=== PATIENT | female | born 1950 | race Caucasian/White ===

== ENCOUNTER 2018-05-27 14:03 | Inpatient (IN) | payer MEDICARE, OTHER ==
[~2018-05-27] VITALS: Ht 157.5 cm; Wt 65.3 kg
[2018-05-27] MEDS ORDERED: MELATONIN 3 MG TABLET PO PRN (16:30)
[2018-05-27] MEDS ORDERED: ONDANSETRON 4 MG (ZOFRAN) ORAL DISSOLVE TAB PO PRN (16:30)
[2018-05-27] MEDS ORDERED: DOCUSATE SODIUM 100 MG (COLACE) CAP PO PRN (16:30)
[2018-05-27] MEDS ORDERED: ALPRAZolam 0.25 MG (XANAX) TAB PO PRN (16:30)
[2018-05-27] MEDS ORDERED: LOPERAMIDE 2 MG (IMODIUM) CAP PO PRN (16:30)
[2018-05-27] MEDS ORDERED: CALCIUM CARBONATE 500 MG (TUMS) TAB.CHEW PO PRN (16:30)
[2018-05-27] MEDS ORDERED: ONDANSETRON 4 MG/2 ML (SDV) Z0FRAN IVP PRN (16:30)
[2018-05-27] MEDS ORDERED: diphenhydrAMINE 25 MG TAB (BENADRYL) PO PRN ×2 (16:30→20:15)
[2018-05-27] MEDS ORDERED: ACETAMINOPHEN 500 MG TAB (TYLENOL) PO PRN (16:30)
[2018-05-27 18:35] VITALS: BP 128/62
--- NOTE | 2018-05-27 18:37 | PM&R H&P / Post Admit Assess ---
History of Present Illness HPI/Chief Complaint CC: s/p Lumbar spine surgery with debility HPI: This is a 68-year-old white female clinic patient of Dr. Wynne who presents to the inpatient rehabilitation facility following an uncomplicated lumbar spine surgery due to lumbar stenosis from Dr. Conley on 05/23/18. She has been essentially bedridden for 7 months due to the severity of her back pain until she was able to undergo the surgery by Dr. Conley. At this current time pain is controlled and she is looking forward to getting up therapy and beginning the intensive program. She was contemplating going to skilled facility but daughter encouraged her to try inpatient rehabilitation for a more aggressive journey with therapy to recover. She does have history of postural orthostasis tachycardia syndrome and has been allowed to have permissive hypertension in order to minimize the orthostasis so she's been given her pressor therapy on an as needed basis. Her bowels are moving and she feels like she is going to have another bowel movement this evening. She has a midline back incision dressing will be changed every other day with gauze and Hypofixate and she is not a candidate for chemical DVT prophylaxis only SCDs due to high risk for spinal hematoma and compression of the spinal cord. She usually sees neurology at for the orthostasis and urology for recurrent UTIs. Source: patient, family, RN/MD Exam Limitations: no limitations Date Seen 05/27/18 Time Seen by a Provider: 16:15 Attending Physician Elham Garg Maxwell MD Referring Physician Date of Admission May 27, 2018 at 17:40 Home Medications & Allergies Home Medications Reviewed patient Home Medication Reconciliation performed by pharmacy medication reconciliations slot technician and/or nursing. Patients Allergies have been reviewed. 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) Smoking Status: Former Smoker Past Medical History Surgeries: Gallbladder, Orthopedic Cardiac: Hypertension, Hypotension, Palpitations Neurological: Neuropathy Genitourinary: Bladder Infection Gastrointestinal: Gastroesophageal Reflux Musculoskeletal: Arthritis, Chronic Back Pain Endocrine: Diabetes, Non-Insulin dep HEENT: Cataract Family History Diabetes Review of Systems Constitutional: malaise, weakness EENTM: no symptoms reported Respiratory: no symptoms reported Cardiovascular: no symptoms reported Gastrointestinal: no symptoms reported Genitourinary: no symptoms reported Musculoskeletal: back pain Skin: no symptoms reported Psychiatric/Neurological: No Symptoms Reported All Other Systems Reviewed Negative Unless Noted: Yes Physical Exam Exam Vital Signs Capillary Refill : General Appearance: No Apparent Distress, WD/WN, Chronically ill, Thin HEENT: PERRL/EOMI, Normal ENT Inspection, Pharynx Normal, Moist Mucous Membranes Neck: Full Range of Motion, Normal Inspection, Non Tender, Supple Respiratory: Chest Non Tender, Lungs Clear, Normal Breath Sounds, No Accessory Muscle Use, No Respiratory Distress Cardiovascular: Regular Rate, Rhythm, No Edema, No Gallop, No JVD, No Murmur Gastrointestinal: Normal Bowel Sounds, No Organomegaly, No Pulsatile Mass, Non Tender, Soft Rectal: Normal Exam, Normal Rectal Tone Genital/Rectal: Normal Genital Exam, Normal Rectal Exam, Normal Rectal Tone, Normal Vaginal Exam Back: Decreased Range of Motion, Vertebral Tenderness, Other (dressing intact) Extremity: Normal Capillary Refill, Normal Inspection, Normal Range of Motion, Non Tender, No Calf Tenderness, No Pedal Edema Neurologic/Psychiatric: Alert, Oriented x3, No Motor/Sensory Deficits, Depressed Affect Skin: Normal Color, Warm/Dry Lymphatic: No Adenopathy Results Results/Procedures Labs Patient resulted labs reviewed. Assessment/Plan Assessment and Plan Assess & Plan/Chief Complaint Assessment: Status post uncomplicated lumbar spine surgery on 05/23/18 Seven-month history of bedridden status due to severe back pain with radiculopathy Diabetes mellitus POTS Vitamin B-12 deficiency Postop anemia Recurrent UTIs Chronic headache Plan: Restart home meds Permissive hypertension due to severity of her orthostasis when standing up Check labs in a.m. Pain control Bowel regimen Intensive therapies (1) Lumbar stenosis (2) POTS (postural orthostatic tachycardia syndrome) (3) History of UTI (4) Anemia due to acute blood loss (5) Weakness (6) Neuropathy (7) GERD (gastroesophageal reflux disease) (8) Diabetes mellitus (9) B12 deficiency (10) Headache Post Admission Physician Asses Date seen by provider: May 27, 2018 Time seen by provider: 18:15 The preadmission screen agrees with the post admission assessment that the patient is a good candidate for inpatient rehabilitation. The patient will have a comprehensive program of inpatient rehabilitation with a goal of maximizing level of functional independence prior to discharge home with family. The patient will have PT/OT ninety minutes per day, each discipline, five days a week for gait, strengthening, conditioning, balance, ADLs, any patient/family/caregiver training as necessary. Speech therapy to do cognitive assessment and treat as indicated. Rehabilitation nursing to assist with bowel, bladder, skin, wound care, medication administration, pain management. Plant Physiology Teacher to assist with discharge planning, community reentry. SCD's for DVT prophylaxis. She appears to be well motivated to participate in three hours of therapy a day. She should be able to tolerate three hours of therapy a day from a medical standpoint. She should benefit from the three hours of therapy a day. She has a reasonable discharge plan, reasonable discharge rehabilitation goals and a supportive family. She has various comorbidities that need to be closely monitored with medications and treatments adjusted on a daily basis as needed. These include: Barriers to discharge for this patient who had been independent prior to this are for her to be modified independent to supervision for ADLs and mobility skills prior to discharge home with [family], so as to lessen the burden of the caregivers. Risks for this patient include: 1. Fall 2. Fracture 3. DVT 4. Pulmonary embolism 5. Wound infection 6. Skin breakdown 7. Contractures 8. Poorly controlled pain 9. Urinary retention 10. UTI 11. Respiratory infection 12. Aspiration Estimated Length of Stay: 14 days Prognosis: Rehab prognosis appears good for goal of discharge home with family modified independent to supervision for ADLs and mobility skills. ELHAM GARG DO May 27, 2018 18:37
[2018-05-27] MEDS: HYDROcodone/APAP 5 MG/325 MG (LORTAB) TAB PO PRN ×2 (18:52→22:15)
--- NOTE | 2018-05-27 19:28 | NUR ---
bedside report received from TARIQ BLACK, assume care of pt
--- NOTE | 2018-05-27 19:30 | NUR ---
pt had been given lortab 5 1 tab at 185 rates pain at 2/10 on numeric scale
--- NOTE | 2018-05-27 19:41 | NUR ---
Admitted to room 230-1, with an admitting diagnosis of debility, on 05/27/18 from via [private vehicle, accompanied by [family].JORDANA GARCIA introduced to surroundings, call light, bed controls, phone, TV, temperature control, lights, meal times, smoking policy, visitor policy, side rail policy, bathrooms and showers. Patient Rights given to patient in the handbook.JORDANA GARCIA verbalizes understanding that [facility] is not responsible for the loss or damage to any personal effects or valuables that are kept in the patients posession during their hospitalization. The following Patient Care Plans were discussed with the [pt]: Discharge Planning, [impaired mobility],[self care deficit], and [alteration in comfort and skin integrity]. JORDANA GARCIA verbalizes understanding of Interdisciplinary Patient Education. Patient and/or family were informed about the Rapid Response Team and its purpose. Patient received Patient Rights Booklet, which includes Privacy Act Statement and Data Collection Information Summary.
[2018-05-27] MEDS ORDERED: PROMETHAZINE 25 MG (PHENERGAN) TAB PO PRN (20:15)
--- NOTE | 2018-05-27 20:15 | NUR ---
up to commode dressing to lower back changed, incision intact with lane & has lt sided old drain tube site with serous sanguinous drainage, dressing 4x4 & island dressing applied, pt assisted back to bed had medium soft brown stool pt states 3rd stool today & asked this nurse not to give laxatives & stool softeners
[2018-05-27] MEDS: POLYETHYLENE GLYCOL 17 GM (MIRALAX) PACK PO SCH (21:00)
[2018-05-27] MEDS: DOCUSATE SODIUM 100 MG (COLACE) CAP PO SCH (21:00)
--- NOTE | 2018-05-27 21:45 | NUR ---
fsbs 274 NovoLog 8 units given
[2018-05-27] MEDS: COLESTIPOL 1 GM (COLESTID) TAB PO SCH (21:52)
[2018-05-27] MEDS: GABAPENTIN 100 MG (NEURONTIN) CAP PO SCH (21:53)
[2018-05-27] MEDS: KCL 10 MEQ TAB (MICRO K) PO SCH (21:53)
[2018-05-27] MEDS: FAMOTIDINE 20 MG (PEPCID) TABLET PO SCH (21:53)
[2018-05-27] MEDS: LIPASE/AMYLASE/PROTEASE (PANCRELIPASE) 5,000 UNITS CAP PO SCH (21:54)
[2018-05-27] MEDS: CYCLOBENZAPRINE 10 MG (FLEXERIL) TAB PO SCH (21:54)
[2018-05-27] MEDS: ESTRADIOL VAGINAL CREAM 42.5 GM (ESTRACE) VG SCH (21:57)
[2018-05-27] MEDS ORDERED: inSUlin ASPART (NovoLOG) 1 UNIT/0.01 ML (CHARGE PER UNIT) ONE (22:02)
[2018-05-27] MEDS: inSUlin ASPART (NovoLOG) 1 UNIT/0.01 ML (CHARGE PER UNIT) SC SCH (22:07)
--- NOTE | 2018-05-27 22:15 | NUR ---
c/o back pain level 6/10 on numeric scale, Lortab 5 1 tab po given
--- NOTE | 2018-05-27 22:50 | NUR ---
resting quietly in bed, pain level 0/10 on flacc scale
[2018-05-28] MEDS: HYDROcodone/APAP 5 MG/325 MG (LORTAB) TAB PO PRN ×3 (04:50→21:32)
--- NOTE | 2018-05-28 04:50 | NUR ---
c/o back pain level 5/10 on numeric scale, lortab 5 1 tab po given
[2018-05-28 04:55] VITALS: BP 155/78
--- NOTE | 2018-05-28 05:05 | NUR ---
straight cath & received 400ml light yvonne colored urine
--- NOTE | 2018-05-28 05:30 | NUR ---
resting quietly in bed, pain level 0/10 on flacc scale
[2018-05-28 06:00] LABS: BASOPHILS % (AUTO) 0 % (0-10); EOSINOPHILS # (AUTO) 0.1 10^3/uL (0.0-0.3); EOSINOPHILS % (AUTO) 2 % (0-10); HEMATOCRIT 31 % (35-52); HEMOGLOBIN 10.1 G/DL (11.5-16.0); LYMPHOCYTES # (AUTO) 1.9 X 10^3 (1.0-4.0); LYMPHOCYTES % (AUTO) 26 % (12-44); MEAN CORPUSCULAR HEMOGLOBIN 31 PG (25-34); MEAN CORPUSCULAR HGB CONC 32 G/DL (32-36); MEAN CORPUSCULAR VOLUME 96 FL (80-99); MEAN PLATELET VOLUME 8.8 FL (7.4-10.4); MONOCYTES # (AUTO) 0.8 X 10^3 (0.0-1.0); MONOCYTES % (AUTO) 12 % (0-12); NEUTROPHILS # (AUTO) 4.3 X 10^3 (1.8-7.8); NEUTROPHILS % (AUTO) 60 % (42-75); PLATELET COUNT 373 10^3/uL (130-400); RED CELL DISTRIBUTION WIDTH 13.1 % (10.0-14.5); WHITE BLOOD COUNT 7.1 10^3/uL (4.3-11.0)
[2018-05-28 06:20] LABS: ALANINE AMINOTRANSFERASE 17 U/L (0-55); ALBUMIN 3.3 GM/DL (3.2-4.5); ALKALINE PHOSPHATASE 85 U/L (40-136); BILIRUBIN,TOTAL 0.3 MG/DL (0.1-1.0); BUN/CREATININE RATIO 14; CALCIUM 9.4 MG/DL (8.5-10.1); CARBON DIOXIDE 29 MMOL/L (21-32); CHLORIDE 95 MMOL/L (98-107); CREATININE SERUM 0.84 MG/DL (0.60-1.30); GFR ESTIMATED > 60; GLUCOSE 230 MG/DL (70-105); POTASSIUM 3.9 MMOL/L (3.6-5.0); SODIUM 137 MMOL/L (135-145); TOTAL PROTEIN 6.8 GM/DL (6.4-8.2)
[2018-05-28] MEDS: inSUlin ASPART (NovoLOG) 1 UNIT/0.01 ML (CHARGE PER UNIT) SC SCH ×4 (06:37→21:27)
[2018-05-28] MEDS: metFORMIN XR 500 MG (GLUCOPHAGE XR) TAB PO SCH ×2 (06:38→17:21)
[2018-05-28] MEDS: KCL 10 MEQ TAB (MICRO K) PO SCH ×2 (06:38→17:21)
[2018-05-28] MEDS: VITAMIN D3 1,000 UNITS (CHOLECALCIFEROL) TABLET PO SCH (06:39)
[2018-05-28] MEDS: glipiZIDE 5 MG (GLUCOTROL) TAB PO SCH (06:39)
[2018-05-28] MEDS: LIPASE/AMYLASE/PROTEASE (PANCRELIPASE) 5,000 UNITS CAP PO SCH ×4 (06:40→21:29)
--- NOTE | 2018-05-28 07:35 | NUR ---
bedside report given to BRANDI BLACK
[2018-05-28] MEDS ORDERED: PATIENT MAY USE OWN MED,SINGLE MED PO SCH (08:00)
[2018-05-28] MEDS: MAGNESIUM OXIDE (MAG-OX)400 MG TAB PO SCH (08:29)
[2018-05-28] MEDS: FAMOTIDINE 20 MG (PEPCID) TABLET PO SCH ×2 (08:29→21:29)
[2018-05-28] MEDS: GABAPENTIN 100 MG (NEURONTIN) CAP PO SCH ×3 (08:29→21:29)
[2018-05-28] MEDS: COLESTIPOL 1 GM (COLESTID) TAB PO SCH ×2 (08:30→21:30)
[2018-05-28] MEDS: DOCUSATE SODIUM 100 MG (COLACE) CAP PO SCH ×2 (08:30→21:30)
[2018-05-28] MEDS: CYCLOBENZAPRINE 10 MG (FLEXERIL) TAB PO SCH ×3 (08:30→21:30)
[2018-05-28] MEDS: POLYETHYLENE GLYCOL 17 GM (MIRALAX) PACK PO SCH ×2 (08:34→21:00)
[2018-05-28] MEDS: MILK OF MAGNESIA 400 MG/5 ML 30 ML UDC PO SCH (08:34)
[2018-05-28 08:40] VITALS: BP 101/63
[2018-05-28] MEDS: FLUDROCORTISONE 0.1 MG (FLORINEF) TAB PO SCH (08:51)
[2018-05-28] MEDS: DROXIDOPA 200 MG PO SCH ×3 (08:51→17:22)
[2018-05-28] MEDS: FLUTICASONE NASAL SPRAY (FLONASE) 16 GM BTL NS SCH (08:53)
[2018-05-28 08:58] VITALS: BP 100/60
--- NOTE | 2018-05-28 09:30 | PM&R Progress Note ---
Subjective HPI/CC On Admission Date Seen by Provider: May 28, 2018 Time Seen by Provider: 09:00 CC: s/p Lumbar spine surgery with debility HPI: This is a 68-year-old white female clinic patient of Dr. Wynne who presents to the inpatient rehabilitation facility following an uncomplicated lumbar spine surgery due to lumbar stenosis from Dr. Conley on 05/23/18. She has been essentially bedridden for 7 months due to the severity of her back pain until she was able to undergo the surgery by Dr. Conley. At this current time pain is controlled and she is looking forward to getting up therapy and beginning the intensive program. She was contemplating going to skilled facility but daughter encouraged her to try inpatient rehabilitation for a more aggressive journey with therapy to recover. She does have history of postural orthostasis tachycardia syndrome and has been allowed to have permissive hypertension in order to minimize the orthostasis so she's been given her pressor therapy on an as needed basis. Her bowels are moving and she feels like she is going to have another bowel movement this evening. She has a midline back incision dressing will be changed every other day with gauze and Hypofixate and she is not a candidate for chemical DVT prophylaxis only SCDs due to high risk for spinal hematoma and compression of the spinal cord. She usually sees neurology at for the orthostasis and urology for recurrent UTIs. Objective Exam Vital Signs Vital Signs Date Time Temp Pulse Resp B/P (MAP) Pulse Ox O2 Delivery O2 Flow Rate FiO2 05/28/18 17:19 98.3 92 18 146/76 (99) 94 Room Air Capillary Refill : General Appearance: No Apparent Distress, WD/WN, Chronically ill, Thin HEENT: PERRL/EOMI, Normal ENT Inspection, Pharynx Normal, Moist Mucous Membranes Neck: Full Range of Motion, Normal Inspection, Non Tender, Supple Respiratory: Chest Non Tender, No Accessory Muscle Use, No Respiratory Distress , Crackles, Decreased Breath Sounds Cardiovascular: Regular Rate, Rhythm, No Edema, No Gallop, No JVD, No Murmur Gastrointestinal: Normal Bowel Sounds, No Organomegaly, No Pulsatile Mass, Non Tender, Soft Rectal: Normal Exam, Normal Rectal Tone Genital/Rectal: Normal Genital Exam, Normal Rectal Exam, Normal Rectal Tone, Normal Vaginal Exam Back: Decreased Range of Motion, Vertebral Tenderness, Other (dressing intact) Extremity: Normal Capillary Refill, Normal Inspection, Normal Range of Motion, Non Tender, No Calf Tenderness, No Pedal Edema Neurologic/Psychiatric: Alert, Oriented x3, No Motor/Sensory Deficits, Depressed Affect Skin: Normal Color, Warm/Dry Lymphatic: No Adenopathy Results/Procedures Lab Laboratory Tests 05/28/18 05:48 Patient resulted labs reviewed. Assessment/Plan Assessment and Plan Assess & Plan/Chief Complaint Assessment: Status post uncomplicated lumbar spine surgery on 05/23/18 Seven-month history of bedridden status due to severe back pain with radiculopathy Diabetes mellitus POTS Vitamin B-12 deficiency Postop anemia Recurrent UTIs Chronic headache Neurogenic bladder requiring straight catheters to empty bladder Crackles on lung exam subtle Plan: Restarted home meds Permissive hypertension due to severity of her orthostasis when standing up Pain control Bowel regimen Intensive therapies Fall risk Straight in/out caths IS (1) Lumbar stenosis (2) POTS (postural orthostatic tachycardia syndrome) (3) History of UTI (4) Anemia due to acute blood loss (5) Weakness (6) Neuropathy (7) GERD (gastroesophageal reflux disease) (8) Diabetes mellitus (9) B12 deficiency (10) Headache (11) Neurogenic bladder (12) Bibasilar crackles Clinical Quality Measures DVT/VTE Risk/Contraindication: Risk Factor Score Per Nursin RFS Level Per Nursing on Admit: 2=Moderate MALIKA VÁZQUEZ DO May 28, 2018 09:30
--- NOTE | 2018-05-28 10:13 | ST Cognitive Linguistic Eval ---
Speech Evaluation-General Medical Diagnosis Lumbar Stenosis Onset Date: May 23, 2018 Therapy Diagnosis Therapy Diagnosis: Cognitive-communication Precautions Precautions/Isolations: Fall Prevention, Standard Precautions, Pressure Ulcer Medical History Reviewed History: Yes Speech PLF-Current Status Prior Level of Function Patient lived at home with her . She had been bedridden for the past 7 months due to the back pain. She was dependent on family for her daily needs. Subjective Patient was pleasant and cooperative for the cognitive evaluation. Language Eval: Auditory Comprehends Simple Yes/No Ques: Functional Indent/Objects Multiple [place]: Functional Ident/Pics in Multiple [place]: Functional Follows 1-Step Commands: Functional Follows Complex Directions: Functional Follows General Conversations: Functional Language Eval: Verbal Language Completes Spontaneous Greeting: Functional Produces Auto, Serial Info: Functional Imitates Simple Words/Phrases: Functional Word Finding: Functional Requests Basic Needs: Functional States Basic Personal Info: Functional Expresses Complex Ideas: Functional Objective Cognitive Domain Attention: WNL Memory: WNL Problem Solving: Functional Executive Functions: WNL Visuospatial Skills: WN Objective Formal/Standardized Tests [facility] Cognitive/Communication Results Memory: Immediate 3/3, Delayed 3/3, Orientation: 5/5, Problem Solving: Simple 5/ 5, Complex 5/5, Auditory Processin/5 Oral Motor/Speech Production Within functional limits Impression Patient is a pleasant 68 year old female who was admitted to the ARU post lumbar surgery.. Patient was evaluated for cognitive function. Patient does not exhibit any memory or problem solving deficits at this time. Communication/Social Cognition Comprehension: 7 Expression: 7 Social Interaction: 7 Problem Solvin Memory: 7 Speech Patient Assess Expression of Ideas/Wants: Expression (4) Understanding Verbal Content: Understands (4) Brief Interview-Mental Status: Yes Repetition of Three Words: Three (3) Temporal Orientation: Year: Correct (3) Temporal Orientation: Month: Accurate within 5 days(2) Temporal Orientation: Day: Correct (1) Recall : Wear to say "Sock": Yes, no cue required (2) Recall : Color: Yes, no cue required (2) Recall : Bed: Yes, no cue required (2) Memory/Recall Ability: Current season, That he or she is in a hsp/hsp unit Speech-Plan Patient/Family Goals Patient/Family Goals: Patient plans to return home with family post rehab. Treatment Plan Speech Therapy Treatment Plan: Discontinue ST Skilled ST is not recommended at this time. Treatment Duration: May 28, 2018 Frequency: 1 time per week Estimated Hrs Per Day: .25 hour per day Rehab Potential: Good Barriers to Learning: Patient is in a lot of pain. Pt/Family Agrees to Plan: Yes Safety Risks/Education Teaching Recipient: Patient Teaching Methods: Discussion Response to Teaching: Verbalize Understanding Education Topics Provided: Safety within her room. Time Speech Therapy Time In: 09:45 Speech Therapy Time Out: 10:00 Total Billed Time: 15 Billed Treatment Time 1, SPSNDCOMP MARYSE Young May 28, 2018 10:13
--- NOTE | 2018-05-28 10:18 | Physical Therapy Evaluation ---
PT Evaluation-General Medical Diagnosis Admission Date May 27, 2018 at 17:40 Therapy Diagnosis Therapy Diagnosis: impaired mobility, strength, endurance Height/Weight Height (Feet): 5 Height (Inches): 2.00 Weight (Pounds): 140 Weight (Ounces): 1.6 Precautions Precautions/Isolations: Fall Prevention, Standard Precautions, Pressure Ulcer Referral Physician: Elham Garg DO Reason for Referral: Evaluation/Treatment Medical History Additional Medical History Past Medical History Surgeries: Gallbladder, Orthopedic Cardiac: Hypertension, Hypotension, Palpitations Neurological: Neuropathy Genitourinary: Bladder Infection Gastrointestinal: Gastroesophageal Reflux Musculoskeletal: Arthritis, Chronic Back Pain Endocrine: Diabetes, Non-Insulin dep HEENT: Cataract Reviewed History: Yes Social History Home: Single Level Current Living Status: Spouse Entry Into Home: Ramp Prior/Core FIM Prior Level of Function Therapy Code Descriptions/Definitions Functional Gray Measure: 0=Not Assessed/NA 4=Minimal Assistance 1=Total Assistance 5=Supervision or Setup 2=Maximal Assistance 6=Modified Gray 3=Moderate Assistance 7=Complete Gray Therapy Quality Codes: 6 Independent with activity with or without an assistive device 5 Patient requires set up or clean up by helper. Patient completes activity by themselves 4 Supervision or touching assist (CGA). [place] provide cues , steadying assist 3 The helper provides less than half the effort to complete the activity 2 The helper provides more than half the effort to complete the activity 1 Dependent. The helper does all the effort to complete an activity 7 Patient refused to complete or attempt activity 9 The patient did not perform the activity before the current illness or injury 88 Not attempted due to Medical conditions or safety concerns Functional Abilities and Goals: Independent: Patient completed the activities by him/herself, with or without an assistive device, with no assistance from a helper. Needed Some Help: Patient needed partial assistance from another person to complete activities. Dependent: A helper completed the activities for the patient. Unknown: Not Applicable: Bed Mobility: 6 Transfers (B,C,W/C) (FIM): 6 Gait: 2 Wheelchair Mobility: 6 Prior Devices Use: Manual wheelchair, Walker Patient states she was ambulating previously with a rolling walker by herself but only for short distances. PT Evaluation-Current Subjective Patient in bed pre tx, agrees reluctantly to PT, has 7/10 pain in low back. Patient does not have a back brace to wear here and she says she has not had one since the surgery. Patient needs dressed upper and lower, does upper by herself with nurse in the room, does lower with mod to max assist. Pt/Family Goals to decrease her pain Objective Patient Orientation: Person, Place, Situation ROM/Strength ROM Lower Extremities WNL except left ankle (due to fusion per patient) Strength Lower Extremities hip flexion 3/5 bilaterally, otherwise both legs are 4-/5 grossly Neuromuscular (Tone, Coordination, Reflexes) NT Sensory Vision: Wears Glasses Hearing: Functional Sensation Right Lower Extremit: Intact Sensation Left Lower Extremity: Intact Transfers Therapy Code Descriptions/Definitions Functional Gray Measure: 0=Not Assessed/NA 4=Minimal Assistance 1=Total Assistance 5=Supervision or Setup 2=Maximal Assistance 6=Modified Gray 3=Moderate Assistance 7=Complete Gray Transfers (B, C, W/C) (FIM): 3 Scootin Rollin Supine to/from Sit: 3 ANGELIC TRAN PT May 28, 2018 10:18
--- NOTE | 2018-05-28 10:26 | Physical Therapy Evaluation ---
PT Evaluation-General Medical Diagnosis Admission Date May 27, 2018 at 17:40 Medical Diagnosis: Lumbar Stenosis Onset Date: May 23, 2018 Therapy Diagnosis Therapy Diagnosis: impaired mobility, strength, endurance Height/Weight Height (Feet): 5 Height (Inches): 2.00 Weight (Pounds): 140 Weight (Ounces): 1.6 Precautions Precautions/Isolations: Fall Prevention, Standard Precautions, Pressure Ulcer Referral Physician: Elham Garg DO Reason for Referral: Evaluation/Treatment Medical History Additional Medical History Past Medical History Surgeries: Gallbladder, Orthopedic Cardiac: Hypertension, Hypotension, Palpitations Neurological: Neuropathy Genitourinary: Bladder Infection Gastrointestinal: Gastroesophageal Reflux Musculoskeletal: Arthritis, Chronic Back Pain Endocrine: Diabetes, Non-Insulin dep HEENT: Cataract Reviewed History: Yes Social History Home: Single Level Current Living Status: Spouse Entry Into Home: Ramp Prior/Core FIM Prior Level of Function Therapy Code Descriptions/Definitions Functional [place] Measure: 0=Not Assessed/NA 4=Minimal Assistance 1=Total Assistance 5=Supervision or Setup 2=Maximal Assistance 6=Modified [place] 3=Moderate Assistance 7=Complete [place] Therapy Quality Codes: 6 Independent with activity with or without an assistive device 5 Patient requires set up or clean up by helper. Patient completes activity by themselves 4 Supervision or touching assist (CGA). [place] provide cues , steadying assist 3 The helper provides less than half the effort to complete the activity 2 The helper provides more than half the effort to complete the activity 1 Dependent. The helper does all the effort to complete an activity 7 Patient refused to complete or attempt activity 9 The patient did not perform the activity before the current illness or injury 88 Not attempted due to Medical conditions or safety concerns Functional Abilities and Goals: Independent: Patient completed the activities by him/herself, with or without an assistive device, with no assistance from a helper. Needed Some Help: Patient needed partial assistance from another person to complete activities. Dependent: A helper completed the activities for the patient. Unknown: Not Applicable: Bed Mobility: 6 Transfers (B,C,W/C) (FIM): 6 Gait: 2 Wheelchair Mobility: 6 Indoor Mobility (Ambulation): Independent Stairs: Independent Prior Devices Use: Manual wheelchair, Walker Patient states she was ambulating in her home previously but only short distances. PT Evaluation-Current Subjective Patient in bed pre tx, agrees to PT, reluctant to participate in therapy but agrees with encouragement. Patient states that she isn't sure if she is going to be able to handle as much therapy as she will be getting in rehab. Patient has 7/10 pain in low back. Patient does not have a back brace and states that she has not had one since her surgery. Patient needs to get dressed upper and lower and performs upper without assist with nurse in the room and needs mod to max assist for lower. Pt/Family Goals to decrease her back pain Objective Patient Orientation: Person, Place, Situation ROM/Strength ROM Lower Extremities WNL except for left ankle (it is fused per patient report) Strenght Lower Extremities hip flexion bilaterally is 3/5, otherwise both legs are 4-/5 grossly Neuromuscular (Tone, Coordination, Reflexes) NT Sensory Vision: Wears Glasses Hearing: Functional Sensation Right Lower Extremit: Intact Sensation Left Lower Extremity: Intact Transfers Therapy Code Descriptions/Definitions Functional [place] Measure: 0=Not Assessed/NA 4=Minimal Assistance 1=Total Assistance 5=Supervision or Setup 2=Maximal Assistance 6=Modified [place] 3=Moderate Assistance 7=Complete [place] Therapy Quality Codes: 6 Independent with activity with or without an assistive device 5 Patient requires set up or clean up by helper. Patient completes activity by themselves 4 Supervision or touching assist (CGA). [place] provide cues , steadying assist 3 The helper provides less than half the effort to complete the activity 2 The helper provides more than half the effort to complete the activity 1 Dependent. The helper does all the effort to complete an activity 7 Patient refused to complete or attempt activity 9 The patient did not perform the activity before the current illness or injury 88 Not attempted due to Medical conditions or safety concerns Transfers (B, C, W/C) (FIM): 3 Scootin Rollin Roll Left to Right (QC): 4 Supine to/from Sit: 3 Sit to/from Stand: 4 bed t/f WC(FIM only if WC use): 3 Sit to Lying (QC): 2 Lying to Sitting/Side of Bed(Q: 2 Sit to Stand (QC): 3 Chair/Nqj-ic-Gkqzz Xfer(QC): 3 Car Transfer (QC): 3 Patient performs bed mobility with SBA, supine <-> sit with mod assist (needs help with both legs), sit <-> stand with min assist from low surfaces, transfers with min assist, car transfer min assist. Patient needs assist standing from low surfaces. Her blood pressure became low during treatment 88/ 53 and she required more assist for transfers back to her wheelchair and into recliner. Gait Does the Patient Walk?: Yes Mode of Locomotion: Both Anticipated Mode of Locomotion: Walk Gait (FIM): 1 Walk 10 feet (QC): 4 Distance: 20'x2 Gait Level of Assist: 4 Gait Persons Needed: 1 Gait Assistive Device: FWW Comments/Gait Description Patient can ambulate 20' with a rolling walker with CGA. She has poor foot clearance, very slow ambulation, antalgic, unsteady but no LOB. Patient fatigues very quickly. Wheelchair Training Does the Pt Use a Wheelchair?: Yes Wheelchair (FIM): 1 Type of Wheelchair: Manual Stairs If not tested on admit;explain Patient does not have the strength to perform a step and her blood pressure is too low this morning. Balance Sitting Static: Normal Sitting Dynamic: Normal Standing Static: Fair Standing Dynamic: Fair Assessment/Needs Patient has impaired mobility, strength, endurance. Her blood pressure dropped this morning to 88/53. Patient moves very slowly, needs time to adjust with every transition. Patient seems to be very self-limiting possible due to pain but she has also been very inactive for a long time. She takes extra time for all mobility due to pain, and extremely poor endurance. Patient may have issues with motivation. Rehab Potential: Fair PT Short Term Goals Short Term Goals Time Frame: Jun 04, 2018 Transfers (B,C,W/C) (FIM): 4 Gait (FIM): 2 Gait Distance Comment: 50' Gait Level of Assist: 4 Gait Assistive Device: FWW PT Motor Operator Goals Motor Operator Goals PT Skilled Nursing Goals Time Frame: Jun 18, 2018 Transfers (B,C,W/C) (FIM): 5 Sit to Lying (QC): 6 Lying-Sitting on Side/Bed(QC): 6 Sit to Stand (QC): 4 Rollin Roll Left to Right (QC): 6 Chair/Kyc-ui-Kmwwp Xfer(QC): 4 Car Transfer (QC): 4 Gait (FIM): 5 Distance: 150' Walk 10 feet (QC): 4 Walk 10ft-Uneven Surface(QC): 4 Walk 50ft with 2 Turns (QC): 4 Walk 150 ft (QC): 4 Gait Level of Assist: 5 Gait Assistive Device: FWW Stairs (FIM): 2 # of Steps: 4 1 Step (curb) (QC): 4 4 Steps (QC): 4 Stairs Level Of Assist: 4 PT Plan Problem List Problem List: Activity Tolerance, Functional Strength, Safety, Balance, Gait, Transfer, Bed Mobility, ROM Treatment/Plan Treatment Plan: Continue Plan of Care Treatment Plan: Bed Mobility, Concurrent Therapy, Education, Functional Activity [place], Functional Strength, Group Therapy, Gait, Safety, Therapeutic Exercise, Transfers Treatment Duration: Jun 04, 2018 Frequency: At least 5 of 7 days/Wk (IRF) Estimated Hrs Per Day: 1.5 hours per day Patient and/or Family Agrees t: Yes Safety Risks/Education Patient Education: Gait Training, Transfer Techniques, Correct Positioning, Safety Issues Teaching Recipient: Patient Teaching Methods: Demonstration, Discussion Response to Teaching: Reinforcement Needed Discharge Recommendations Plan Patient will perform bed mobility and transfer training, balance and endurance training, functional strengthening, stair training, gait training, and education , to improve functional mobility and independence at home. Therapy D/C Recommendations: Home w/ Family Support, Care Home (TCU/NH) Time/GCodes Time In: 0800 Time Out: 0900 Total Billed Treatment Time: 60 Total Billed Treatment 1 visit EVM 30' GT 10' FA 20' ANGELIC TRAN PT May 28, 2018 10:26
--- NOTE | 2018-05-28 11:03 | NUR ---
Patient states will bring Midodrine.
--- NOTE | 2018-05-28 12:01 | Occupational Therapy Eval ---
OT Evaluation-General/PLF Medical Diagnosis Admission Date May 27, 2018 at 17:40 Medical Diagnosis: Lumbar Stenosis Onset Date: May 23, 2018 Therapy Diagnosis Therapy Diagnosis: Weakness Height/Weight Height (Feet): 5 Height (Inches): 2.00 Weight (Pounds): 140 Weight (Ounces): 1.6 Precautions Precautions/Isolations: Fall Prevention, Standard Precautions, Pressure Ulcer Safety Interventions: None Weight Bear Status Weight Bearing Restriction: Weight Bearing/Tolerated Back precautions Referral Physician: Elham Garg DO Referral Reason: Activity Tolerance, Self Care, Evaluation/Treatment, Strengthening/ROM Medical History Pertinent Medical History: DM Additional Medical History POTS, Vit B-12 deficiency, postop anemia, recurrent UTI's. Current History Pt. had elective back surgery. Reviewed History: Yes Social History Home: Single Level Current Living Status: Spouse Entry Into Home: Ramp ADL-Prior Level of Function Therapy Code Descriptions/Definitions Functional [place] Measure: 0=Not Assessed/NA 4=Minimal Assistance 1=Total Assistance 5=Supervision or Setup 2=Maximal Assistance 6=Modified [place] 3=Moderate Assistance 7=Complete [place] Therapy Quality Codes: 6 Independent with activity with or without an assistive device 5 Patient requires set up or clean up by helper. Patient completes activity by themselves 4 Supervision or touching assist (CGA). [place] provide cues , steadying assist 3 The helper provides less than half the effort to complete the activity 2 The helper provides more than half the effort to complete the activity 1 Dependent. The helper does all the effort to complete an activity 7 Patient refused to complete or attempt activity 9 The patient did not perform the activity before the current illness or injury 88 Not attempted due to Medical conditions or safety concerns Functional Abilities and Goals: Independent: Patient completed the activities by him/herself, with or without an assistive device, with no assistance from a helper. Needed Some Help: Patient needed partial assistance from another person to complete activities. Dependent: A helper completed the activities for the patient. Unknown: Not Applicable: ADL PLOF Comments Pt. states that she was independent previous to this surgery, except that her spouse was present when she showered for safety. Self Care: Needed Some Help Functional Cognition: Independent DME/Equipment: Bath Chair, Shower DME/Equipment Comments Pt. has a walker, wheelchair, cane, and crutches. OT Current Status Subjective Pt. reports 8/10 pain in back with movement. Notified nursing and nursing provided pain medication. Appearance Pt. up in chair. Agrees to work with OT. States that she does not feel ready for a shower. Mental Status/Objective Patient Orientation: Person, Place, Time, Situation Current Hand Dominance: Right ADL-Treatment Grooming (FIM): 5 (Set up to brush hair.) Bathing (FIM): 3 (Mod assist overall to wash all parts with spongebath. Seated up in chair.) Shower/Bathe Self (QC): 3 Upper Body Dressing (FIM): 4 Upper Body Dressing (QC): 4 Lower Body Dressing (FIM): 3 (Pt. able to doff socks but requires assist to don them. Has difficulty pulling underwear over hips.) Lower Body Dressing (QC): 3 On/Off Footwear (QC): 3 Transfers (B, C, W/C) (FIM): 3 (Min assist sit-stand and transfer to bed. Mod assist to position self in bed.) Other Treatments Pt. requires increased time to complete tasks. Moves slowly due to pain. OT brought in adaptive equipment after ADL treatment. Pt. is educated on equipment and will begin with equipment training at next ADL session. Education OT Patient Education: Correct positioning, Modified ADL techniques, Progress toward Goal/Update tx plan, Purpose of tx/functional activities, Reviewed precautions, Rehab process, Transfer techniques Teaching Recipient: Patient Teaching Methods: Demonstration, Discussion Response to Teaching: Verbalize Understanding, Return Demonstration OT Short Term Goals Short Term Goals Time Frame: Jun 04, 2018 Eating(FIM): 5 Grooming(FIM): 5 Bathing(FIM): 4 Upper Body Dressing(FIM): 5 Lower Body Dressing(FIM): 4 Toileting(FIM): 4 Transfers (B,C,W/C) (FIM): 4 Toilet/Commode Transfer(FIM): 4 Shower Transfer(FIM): 4 Additional Short Term Goals: 1-Demonstrate ADL Tasks, 2-Verbalize Understanding , 3-ImproveStrength/[place] 1=Demonstrate adherence to instructed precautions during ADL tasks. 2=Patient will verbalize/demonstrate understanding of assistive devices/ modifications for ADL. 3=Patient will improve strength/tolerance for activity to enable patient to perform ADL's. OT Mcc Goals Mcc Goals Time Frame: Jun 11, 2018 Eating (FIM): 6 Eating (QC): 6 Groomin Oral Hygiene (QC): 6 Bathing(FIM): 5 Shower/Bathe Self (QC): 5 Upper Body Dressing(FIM): 6 Upper Body Dressing (QC): 6 Lower Body Dressing(FIM): 6 Lower Body Dressing (QC): 6 On/Off Footwear (QC): 6 Toileting(FIM): 6 Toileting Hygiene (QC): 6 Transfers (B,C,W/C) (FIM): 6 Toilet/Commode Transfer(FIM): 6 Toilet/Commode Transfer (QC): 6 Shower Transfer(FIM): 5 Additional Goals: 1-Demonstrate ADL Tasks, 2-Verbalize Understanding, 3- ImproveStrength/[place] 1=Demonstrate adherence to instructed precautions during ADL tasks. 2=Patient will verbalize/demonstrate understanding of assistive devices/ modifications for ADL. 3=Patient will improve strength/tolerance for activity to enable patient to perform ADL's. OT Education/Plan Problem List/Assessment Assessment: Decreased Activ Tolerance, Dependent Transfers, Impaired Bed Mobility, Impaired Funct Balance, Impaired I ADL's, Impaired Self-Care Skills Discharge Recommendations Plan/Recommendations: Continue POC Therapy D/C Recommendations: Home w/ Family Support, Occupational Therapy Home Care Equpiment Recommendations-D/C: Hip Kit Treatment Plan/Plan of Care Treatment,Training & Education: Yes Patient would benefit from OT for education, treatment and training to promote independence in ADL's, mobility, safety and/or upper extremity function for ADL' s. Plan of Care: ADL Retraining, Functional Mobility, Group Exercise/Act as Ind, UE Funct Exercise/Act Treatment Duration: Jun 11, 2018 Frequency: At least 5 of 7 days/Wk (IRF) Estimated Hrs Per Day: 1.5 hours per day Agreement: Yes Rehab Potential: Fair Time/GCodes Start Time: 10:00 Stop Time: 11:30 Total Time Billed (hr/min): 90 Billed Treatment Time 1, EVH x 15minutes, ADL x 75minutes MARTINA IQBAL OT May 28, 2018 12:01
[2018-05-28 13:02] VITALS: BP 132/74
--- NOTE | 2018-05-28 13:22 | Individualized Plan of Care ---
Individualized Plan of Care Rehab Nursing IPOC Order Admission Date May 27, 2018 at 17:40 Current Orders Orders Admission Order(Inpt,Obs,Sdc) (05/27/18 16:16) Vital Signs: Routine (Order) 08,16,00 (05/27/18 16:16) Walter Hose 09,21 (05/27/18 16:16) Sequential Compression Device 08,20 (05/27/18 16:16) Alarm Technician-Inpt Rehab Con (05/27/18 16:16) Rehab Nursing Orders-Ipoc (05/27/18 16:16) Physical Therapy Rehab Orders (05/27/18 16:16) Occupational Therapy Rehab Ord (05/27/18 16:16) General/Regular (05/27/18 Dinner) Intake & Output 06,14,22 (05/27/18 16:16) Precautions (Aru) (05/27/18 16:16) Weekly Weight (Lbs) WEEK (05/27/18 16:16) Rehab-Intensity Of Therapy (05/27/18 16:16) Acetaminophen Tablet (Tylenol Tablet) (05/27/18 16:30) Alprazolam Tablet (Xanax Tablet) (05/27/18 16:30) Calcium Carbonate Chew Tablet (Antacid C (05/27/18 16:30) Diphenhydramine Tablet (Benadryl Tablet) (05/27/18 16:30) Docusate Sodium Capsule (Colace Capsule) (05/27/18 16:30) Hydrocodone/Apap 5/325 Tablet (Lortab 5 (05/27/18 16:30) Loperamide Capsule (Imodium Capsule) (05/27/18 16:30) Melatonin Tablet (Melatonin Tablet) (05/27/18 16:30) Ondansetron Injection (Zofran Injectio (05/27/18 16:30) Ondansetron Oral Dissolve Tab (Zofran (05/27/18 16:30) Code/Resuscitation (05/27/18 16:16) Initiate Admission Nursing Pro .admission (05/27/18 16:16) General/Regular (05/28/18 Breakfast) Tramadol Tablet (Ultram Tablet) (05/27/18 18:30) Cbc With Automated Diff (05/28/18 06:00) Comprehensive Metabolic Panel (05/28/18 06:00) Cyclobenzaprine Tablet (Flexeril Tablet) (05/27/18 21:00) Docusate Sodium Capsule (Colace Capsule) (05/27/18 21:00) Famotidine Tablet (Pepcid Tablet) (05/27/18 21:00) Fludrocortisone Tablet (Florinef Tablet) (05/28/18 09:00) Gabapentin Capsule/Tablet (Neurontin Cap (05/27/18 21:00) Insulin Aspart (Novolog) (Novolog (Charg (05/28/18 06:00) Midodrine (Non-Formulary) (Proamatine) (05/27/18 21:00) Magnesium Hydroxide Oral Susp (Mom Oral (05/28/18 09:00) Lipase/Amylase/Protease Caps (Pancrelipa (05/27/18 21:00) Polyethylene Glycol Powder Pkt (Miralax (05/27/18 21:00) Potassium Chloride (Tablet) (Klor Con Ta (05/27/18 21:00) Cholecalciferol Capsule/Tablet (Vitamin (05/28/18 07:00) Colestipol Tablet (Colestid Tablet) (05/27/18 21:00) Diphenhydramine Tablet (Benadryl Tablet) (05/27/18 20:15) Estradiol Vaginal Cream (Estrace Vaginal (05/27/18 21:00) Fluticasone Nasal [place] (Flonase Nasal S (05/28/18 09:00) Glipizide Tablet (Glucotrol Tablet) (05/28/18 06:30) Metformin Xr Tablet (Glucophage Xr Table (05/28/18 07:00) Magnesium Oxide Tablet (Mag Ox Tablet) (05/28/18 09:00) Promethazine Tablet (Phenergan Tablet) (05/27/18 20:15) Insulin Aspart (Novolog) (Novolog (Charg (05/27/18 22:02) Patient May Use Own Med,Single (Patient (05/28/18 08:00) (Nf) Droxidopa (+) (05/28/18 08:00) Insulin Aspart (Novolog) (Novolog (Charg (05/28/18 11:00) Patient Visit (05/28/18 ) Speech Sound Lang Comp (05/28/18 ) Incentive Spirometry Initial (05/28/18 11:33) Incentive Spirometry (Nursing) Q2H (05/28/18 11:33) Request For Cognitive Services (05/28/18 09:00) Rehab Nursing Orders: Ongoing Assess. of Function Status, Bladder Management, Bladder Scan, Bladder Training, Bowel Management, Disease Management & Educaiton , DVT Prophylaxis, Fluid/Electrolyte/Nutrition Mgmt, Infection Prevention, Management of Risks & Complications, Management of Skin Intergrity, Nutrition Management, Pain Management, Patient/Family Support, Safety Management, Wound Management Intensity of Therapy to be met Patient to be seen: Min.3h per day/5 of 7d PT IPOC Problem List: Activity Tolerance, Functional Strength, Safety, Balance, Gait, Transfer, Bed Mobility, ROM Treatment Plan: Continue Plan of Care Bed Mobility, Concurrent Therapy, Education, Functional Activity [place], Functional Strength, Group Therapy, Gait, Safety, Therapeutic Exercise, Transfers Treatment Duration: Jun 04, 2018 Frequency: At least 5 of 7 days/Wk (IRF) Estimated Hrs Per Day: 1.5 hours per day OT IPOC Problems: Decreased Activ Tolerance, Dependent Transfers, Impaired Bed Mobility , Impaired Funct Balance, Impaired I ADL's, Impaired Self-Care Skills OT Treatment, Training and Edu: Yes Plan of Care: ADL Retraining, Functional Mobility, Group Exercise/Act as Ind, UE Funct Exercise/Act Treatment Duration: Jun 11, 2018 Frequency: At least 5 of 7 days/Wk (IRF) Estimated Hrs Per Day: 1.[address] IPOC Speech Therapy Treatment Plan: Discontinue ST Treatment Duration: May 28, 2018 Frequency: 1 time per week Estimated Hrs Per Day: .25 hour per day Alarm Technician/Case Mgmt Alarm Technician/Case Managemen: Discharge Planning Dietitian/District Court Judge Dietitian/District Court Judge to monitor nutritional status and make changes and/or recommendations as needed and work with speech pathology on dietary upgrades as the occur. Physician IPOC Medical Issues being managed closely and that require the 24 hour availability of a physician: Severe orthostasis requires close monitoring due to fall risk and pressor therapy modification along with monitoring permissive hypertension Straight in and out catheter close monitoring for any UTI Pain management Wound care Medical Issues: Bowel/Bladder Function, DVT Prophylaxis, Falls Precautions, Fluid/Electrolyte/Nutrition Balance, Infection Protection, Pain Management, Wound Care Brief Synthesis of Preadmission Screen, Post-Admission Evaluation, and Therapy Evaluations: Physical therapy will aggressively treat the severe lack of reserve from endocrine status for 7 months prior to surgery to increase gait and overall body movement Occupational therapy goals increase in dependent ADL use of assistive devices Medical Prognosis: Good Anticipated Length of Stay: 14 days MALIKA VÁZQUEZ DO May 28, 2018 13:22
--- NOTE | 2018-05-28 14:47 | Physical Therapy Daily Note ---
PT Daily Note-Current Subjective Patient in bed pre tx, agrees to PT, no complaints of pain. Appearance Patient in bed post tx with nurse call, phone, tray, all needs met. Mental Status Patient Orientation: Person, Place, Situation Transfers Therapy Code Descriptions/Definitions Functional [place] Measure: 0=Not Assessed/NA 4=Minimal Assistance 1=Total Assistance 5=Supervision or Setup 2=Maximal Assistance 6=Modified [place] 3=Moderate Assistance 7=Complete [place] Therapy Quality Codes: 6 Independent with activity with or without an assistive device 5 Patient requires set up or clean up by helper. Patient completes activity by themselves 4 Supervision or touching assist (CGA). [place] provide cues , steadying assist 3 The helper provides less than half the effort to complete the activity 2 The helper provides more than half the effort to complete the activity 1 Dependent. The helper does all the effort to complete an activity 7 Patient refused to complete or attempt activity 9 The patient did not perform the activity before the current illness or injury 88 Not attempted due to Medical conditions or safety concerns Transfers (B, C, W/C) (FIM): 3 Scootin Rollin Supine to/from Sit: 3 Sit to/from Stand: 4 Bed to/from Chair: 4 Patient needs mod assist for supine to sit and min assist to stand from low surfaces, cues for safety and hand placement. Gait Training Gait (FIM): 2 Distance: 50'x2 Gait Level of Assist: 4 Gait Persons Needed: 1 Gait Assistive Device: FWW antalgic, slow, no LOB, has a hard time turning the walker Exercises Supine Ex: Ankle pumps, Quad Set, Glut sets, Heel Slides Supine Reps: 20 Treatments bed mobility and transfers, ambulation, functional strengthening Assessment Current Status: Fair Progress improved ambulation, no dizziness PT Short Term Goals Short Term Goals Time Frame: Jun 04, 2018 Transfers (B,C,W/C) (FIM): 4 Gait (FIM): 2 Gait Distance Comment: 50' Gait Level of Assist: 4 Gait Assistive Device: FWW PT Nuclear Waste Process Operator Goals Custodial Goals PT Custodial Goals Time Frame: Jun 18, 2018 Transfers (B,C,W/C) (FIM): 5 Sit to Lying (QC): 6 Lying-Sitting on Side/Bed(QC): 6 Sit to Stand (QC): 4 Rollin Roll Left to Right (QC): 6 Chair/Cil-sb-Moafk Xfer(QC): 4 Car Transfer (QC): 4 Gait (FIM): 5 Distance: 150' Walk 10 feet (QC): 4 Walk 10ft-Uneven Surface(QC): 4 Walk 50ft with 2 Turns (QC): 4 Walk 150 ft (QC): 4 Gait Level of Assist: 5 Gait Assistive Device: FWW Stairs (FIM): 2 # of Steps: 4 1 Step (curb) (QC): 4 4 Steps (QC): 4 Stairs Level Of Assist: 4 PT Plan Problem List Problem List: Activity Tolerance, Functional Strength, Safety, Balance, Gait, Transfer, Bed Mobility, ROM Treatment/Plan Treatment Plan: Continue Plan of Care Treatment Plan: Bed Mobility, Concurrent Therapy, Education, Functional Activity Bushra, Functional Strength, Group Therapy, Gait, Safety, Therapeutic Exercise, Transfers Treatment Duration: Jun 04, 2018 Frequency: At least 5 of 7 days/Wk (IRF) Estimated Hrs Per Day: 1.5 hours per day Patient and/or Family Agrees t: Yes Safety Risks/Education Patient Education: Gait Training, Transfer Techniques, Correct Positioning, Safety Issues Teaching Recipient: Patient Teaching Methods: Demonstration, Discussion Response to Teaching: Reinforcement Needed Time/GCodes Time In: 1420 Time Out: 1450 Total Billed Treatment Time: 30 Total Billed Treatment 1 visit GT 15' EX 15' ANGELIC TRAN PT May 28, 2018 14:47
--- NOTE | 2018-05-28 14:54 | NUR ---
Straight cath done per patient's request. 450 mls of urine immediate return. Urine is foul smelling and VERY cloudy. Dr. Garg notified. New order for urine culture. "Not UA, just urine culture."
[2018-05-28] MEDS ORDERED: RANI150T11 PO (15:03)
[2018-05-28] MEDS ORDERED: DROX200C PO (15:03)
[2018-05-28] MEDS ORDERED: GABA-486 PO (15:03)
[2018-05-28] MEDS ORDERED: COLE1TAB PO (15:03)
[2018-05-28] MEDS ORDERED: CHOL20003 PO (15:03)
[2018-05-28] MEDS ORDERED: METF500T8 PO (15:03)
[2018-05-28] MEDS ORDERED: DIPH25CA79 PO (15:03)
[2018-05-28] MEDS ORDERED: FLUT9.9S NS (15:03)
[2018-05-28] MEDS ORDERED: MAGN500C15 PO (15:03)
[2018-05-28] MEDS ORDERED: PROM25TA14 PO (15:03)
[2018-05-28] MEDS ORDERED: CNC1KV INJ (15:03)
[2018-05-28] MEDS ORDERED: FLDR.1T PO (15:03)
[2018-05-28] MEDS ORDERED: MIDO5TAB PO (15:07)
[2018-05-28] MEDS ORDERED: GLIP10TA24 PO (15:07)
[2018-05-28] MEDS ORDERED: POTA10TA36 PO (15:07)
[2018-05-28 15:52] VITALS: BP 156/65
[2018-05-28] MEDS: MIDODRINE 5 MG PO SCH ×2 (15:55→21:31)
--- NOTE | 2018-05-28 15:55 | NUR ---
Family brought in Midodrine and just now verified by pharmacy. Orders to hold Midodrine, Florinef, and Northera for SBP greater than 150. BP is 156/65. 1300 dose of Midodrine held per orders.
[2018-05-28] MEDS ORDERED: LIPA1CAP4 PO (16:17)
[2018-05-28] MEDS ORDERED: ESTR42.52 VG (16:17)
--- NOTE | 2018-05-28 16:18 | NUR ---
UPDATED THE MED REC TO THE LIST OF MEDICATIONS THE PATIENT WAS TAKING UPON ADMISSION TO USING THE DISCHARGE MED LIST AND THE EXT MED HX. NOTE THE FOLLOWING CHANGES WERE MADE WHEN THE PATIENT DISCHARGED TO [facility] THAT ARE NOT CURRENTLY REFLECTED ON THE HOME MED REC: START TAKING: TYLENOL 325MG 1 Q4H PRN FLEXERIL 5MG TID COLACE 100MG BID OXYCODONE 5MG 1-2 Q3H PRN OXYCODONE 5MG 1-2 Q4H PRN OXYCODONE 5MG 1 Q4H PRN THE DISCHARGE MEDICATION LIST HAD DIFFERENT DIRECTIONS ON A FEW MEDICATIONS THAN WHAT THE QUANTITY AND DAYS SUPPLY INDICATED ON THE EXT MED HX. ALSO THERE WERE TWO MEDICATIONS THAT WERE NOT ON THE EXT MED HX AT ALL AND ONE THAT WAS PAST DUE FOR REFILL. I WENT AND SPOKE WITH THE PATIENT REGARDING THESE DISCREPANCIES. 05-14-18 GLIPIZIDE ER 10MG #90 FOR 90 DAYS WAS FILLED HOWEVER SHE STATES SHE CUTS IT IN HALF AND TAKES 1/2 TAB DAILY. 04-19-18 POTASSIUM 10MEQ #90 FOR 90 DAYS WAS FILLED HOWEVER SHE STATES AFTER THAT WAS FILLED THEY INCREASED HER DOSE TO BID. MIDODRINE WAS ON THE LIST TID HOWEVER IT HAS NOT BEEN FILLED SINCE 11-01-17 #270 WHEN I ASKED THE PATIENT ABOUT THIS SHE STATED SHE TAKES IT QID. I LEFT IT TID AND NOTED THE PAST DUE FILL DATE. I CALLED [facility] [place] [facility] TO VERIFY THERE WERE NOT RECORDS OF A MORE RECENT FILL DATE. CREON AND ESTRACE CREAM HAVE NOT BEEN FILLED ACCORDING TO [facility] AND [facility]. THEY DID HAVE SCRIPTS ON FILE BUT THEY WERE NEVER DISPENSED. THE PATIENT STATES SHE APPLIED FOR THE CREON TO BE COVERED BY ANOTHER COMPANY AND IS WAITING FOR THAT TO BE APPROVED. SHE STATES SHE DOES HAVE SUPPLY ON HAND FROM [facility]. [facility] SHOWS THEY FILLED PREMARIN VAGINAL CREAM IN 2016 BUT NOTHING MORE RECENT. I LEFT THE CREON AND THE ESTRACE ON FILE SINCE SHE STATE SHE IS TAKING THEM.
[2018-05-28 17:19] VITALS: BP 146/76
--- NOTE | 2018-05-28 17:23 | NUR ---
Patient refusing Northera. BP 146/76.
--- NOTE | 2018-05-28 17:50 | NUR ---
Straight cath done per patient's request. 425 mls of urine immediate return. Patient tolerated well. Urine sent down for urine culture.
--- NOTE | 2018-05-28 19:20 | NUR ---
bedside report received from BRANDI BLACK, assume care of pt
--- NOTE | 2018-05-28 21:00 | NUR ---
assessments & interventions completed, see assessments & interventions, up to bedside commode for BM with 1 person assist & walker, had medium soft brown BM, back to bed, fsbs 185 NovoLog 4 units given, b/p 133/77 midodrine 5mg po given
--- NOTE | 2018-05-28 21:35 | NUR ---
c/o back pain level 8/10 on numeric scale, lortab 5 1 tab given
--- NOTE | 2018-05-28 22:20 | NUR ---
resting quietly in bed, pain level 0/10 on flacc scale
--- NOTE | 2018-05-28 23:30 | NUR ---
requesting straight cath, received 400ml cloudy light yvonne, foul smelling urine
--- NOTE | 2018-05-29 01:30 | NUR ---
states need straight cath, tried but no urine, had second nurse verify placement in urethra, it it was in urethra, encouraged to drink water
--- NOTE | 2018-05-29 02:00 | NUR ---
up to commode able to void 450ml cloudy light yvonne urine
[2018-05-29] MEDS: HYDROcodone/APAP 5 MG/325 MG (LORTAB) TAB PO PRN ×5 (02:09→18:36)
--- NOTE | 2018-05-29 02:09 | NUR ---
c/o back pain level 7/10 on numeric scale, Lortab 5 1 tab po given
--- NOTE | 2018-05-29 02:51 | NUR ---
resting quietly in bed, pain level 0/10 on flacc scale
[2018-05-29 05:00] VITALS: BP 149/83
[2018-05-29] MEDS: inSUlin ASPART (NovoLOG) 1 UNIT/0.01 ML (CHARGE PER UNIT) SC SCH ×4 (06:00→20:21)
[2018-05-29] MEDS: LIPASE/AMYLASE/PROTEASE (PANCRELIPASE) 5,000 UNITS CAP PO SCH ×4 (06:07→20:44)
[2018-05-29] MEDS: VITAMIN D3 1,000 UNITS (CHOLECALCIFEROL) TABLET PO SCH (06:55)
[2018-05-29] MEDS: metFORMIN XR 500 MG (GLUCOPHAGE XR) TAB PO SCH ×2 (06:56→18:35)
[2018-05-29] MEDS: KCL 10 MEQ TAB (MICRO K) PO SCH ×2 (06:56→18:35)
[2018-05-29] MEDS: glipiZIDE 5 MG (GLUCOTROL) TAB PO SCH (06:56)
[2018-05-29] MEDS: DROXIDOPA 200 MG PO SCH ×3 (06:57→18:37)
--- NOTE | 2018-05-29 07:00 | NUR ---
has voided on own 250-400 at a time on commode x3 this night
--- NOTE | 2018-05-29 07:45 | NUR ---
bedside report given to KURT BLACK
--- NOTE | 2018-05-29 09:07 | Physical Therapy Daily Note ---
PT Daily Note-Current Subjective Pt was up in recliner eating breakfast. Pt reports her back pain is pretty bad today and that she wasn't able to get any sleep last night. Pt agrees to PT. Pain Numeric Pain Scale: 10-Worst Possible Pain Location Body Site: Back Mental Status Patient Orientation: Person, Place, Situation, Normal For Age Transfers Therapy Code Descriptions/Definitions Functional [place] Measure: 0=Not Assessed/NA 4=Minimal Assistance 1=Total Assistance 5=Supervision or Setup 2=Maximal Assistance 6=Modified [place] 3=Moderate Assistance 7=Complete [place] Therapy Quality Codes: 6 Independent with activity with or without an assistive device 5 Patient requires set up or clean up by helper. Patient completes activity by themselves 4 Supervision or touching assist (CGA). [place] provide cues , steadying assist 3 The helper provides less than half the effort to complete the activity 2 The helper provides more than half the effort to complete the activity 1 Dependent. The helper does all the effort to complete an activity 7 Patient refused to complete or attempt activity 9 The patient did not perform the activity before the current illness or injury 88 Not attempted due to Medical conditions or safety concerns Transfers (B, C, W/C) (FIM): 4 Sit to/from Stand: 4 Bed to/from Chair: 4 Weight Bearing Right Lower Extremity: Right Full Weight Bearing Left Lower Extremity: Left Full Weight Bearing Gait Training Does the Patient Walk?: Yes Gait (FIM): 2 Distance (FIM): 7=393-08 ft Distance: 100' Walk 10 feet (QC): 4 Walk 50 ft with 2 Turns(QC): 4 Gait Level of Assist: 4 Gait Persons Needed: 1 Gait Assistive Device: FWW Pt amb with flexed trunk and small KATIE. Exercises Seated Therapy Exercises: Ankle pumps, Long arc quads, Hip flexion, Hip abd/add Seated Reps: 15 NuStep Minutes: 5 NuStep Workload: 2 Assessment Current Status: Fair Progress Pt requires increased time to perform activities due to pain and dizziness.Pt required min A with dressing and needed recovery periods during dressing and grooming due to reports of pain and dizziness. Pt sit<>stand transfers from chair to FWW is min A with VC on hand placement for safety. Pt was able to amb 50'x3 and 100' with FWW and CGA. Pt performed on nustep and attempted 10 min but requested to stop at 5. Pt used only feet for 3 out of the 5 mins. Pt is now in her room in recliner with all needs met. PT Short Term Goals Short Term Goals Time Frame: Jun 04, 2018 Transfers (B,C,W/C) (FIM): 4 Gait (FIM): 2 Gait Distance Comment: 50' Gait Level of Assist: 4 Gait Assistive Device: FWW PT Senior Living Goals Short Filler Bunch Machine Operator Goals PT Senior Living Goals Time Frame: Jun 18, 2018 Transfers (B,C,W/C) (FIM): 5 Sit to Lying (QC): 6 Lying-Sitting on Side/Bed(QC): 6 Sit to Stand (QC): 4 Rollin Roll Left to Right (QC): 6 Chair/Frc-ap-Upzri Xfer(QC): 4 Car Transfer (QC): 4 Gait (FIM): 5 Distance: 150' Walk 10 feet (QC): 4 Walk 10ft-Uneven Surface(QC): 4 Walk 50ft with 2 Turns (QC): 4 Walk 150 ft (QC): 4 Gait Level of Assist: 5 Gait Assistive Device: FWW Stairs (FIM): 2 # of Steps: 4 1 Step (curb) (QC): 4 4 Steps (QC): 4 Stairs Level Of Assist: 4 PT Plan Problem List Problem List: Activity Tolerance, Functional Strength, Safety, Balance, Gait, Transfer, Bed Mobility, ROM Treatment/Plan Treatment Plan: Continue Plan of Care Treatment Plan: Bed Mobility, Concurrent Therapy, Education, Functional Activity [place], Functional Strength, Group Therapy, Gait, Safety, Therapeutic Exercise, Transfers Treatment Duration: Jun 04, 2018 Frequency: At least 5 of 7 days/Wk (IRF) Estimated Hrs Per Day: 1.5 hours per day Patient and/or Family Agrees t: Yes Safety Risks/Education Patient Education: Gait Training, Transfer Techniques, Correct Positioning, Safety Issues Teaching Recipient: Patient Teaching Methods: Demonstration, Discussion Response to Teaching: Reinforcement Needed Time/GCodes Time In: 800 Time Out: 900 Total Billed Treatment Time: 60 Total Billed Treatment 1 visit FA x2 30 min GT 15 min EX 15 min ANGELIC TRAN PT May 29, 2018 09:07
--- NOTE | 2018-05-29 09:15 | PM&R Progress Note ---
Subjective HPI/CC On Admission Date Seen by Provider: May 29, 2018 Time Seen by Provider: 08:30 CC: s/p Lumbar spine surgery with debility HPI: This is a 68-year-old white female clinic patient of Dr. Wynne who presents to the inpatient rehabilitation facility following an uncomplicated lumbar spine surgery due to lumbar stenosis from Dr. Conley on 05/23/18. She has been essentially bedridden for 7 months due to the severity of her back pain until she was able to undergo the surgery by Dr. Conley. At this current time pain is controlled and she is looking forward to getting up therapy and beginning the intensive program. She was contemplating going to skilled facility but daughter encouraged her to try inpatient rehabilitation for a more aggressive journey with therapy to recover. She does have history of postural orthostasis tachycardia syndrome and has been allowed to have permissive hypertension in order to minimize the orthostasis so she's been given her pressor therapy on an as needed basis. Her bowels are moving and she feels like she is going to have another bowel movement this evening. She has a midline back incision dressing will be changed every other day with gauze and Hypofixate and she is not a candidate for chemical DVT prophylaxis only SCDs due to high risk for spinal hematoma and compression of the spinal cord. She usually sees neurology at for the orthostasis and urology for recurrent UTIs. Subjective/Events-last exam Urine culture is pending, obtained urine due to dark and malodorous so will await for urine culture. I'm assuming she has a resistant organism if that is the case because of recurrent UTIs She was able to void on her own which was encouraging Still requires straight caths most of the time Overall appears to be much improved and less frail and it appears she has good potential depending on her orthostasis toleration during physical therapy Review of Systems General: Fatigue, Malaise Musculoskeletal: back pain Objective Exam Vital Signs Vital Signs Date Time Temp Pulse Resp B/P (MAP) Pulse Ox O2 Delivery O2 Flow Rate FiO2 05/29/18 17:56 98.2 75 18 148/75 (99) 97 Room Air Capillary Refill : General Appearance: No Apparent Distress, WD/WN, Chronically ill, Thin, Other ( improved today Sunday) HEENT: PERRL/EOMI, Normal ENT Inspection, Pharynx Normal, Moist Mucous Membranes Neck: Full Range of Motion, Normal Inspection, Non Tender, Supple Respiratory: Chest Non Tender, No Accessory Muscle Use, No Respiratory Distress , Crackles, Decreased Breath Sounds Cardiovascular: Regular Rate, Rhythm, No Edema, No Gallop, No JVD, No Murmur Gastrointestinal: Normal Bowel Sounds, No Organomegaly, No Pulsatile Mass, Non Tender, Soft Rectal: Normal Exam, Normal Rectal Tone Genital/Rectal: Normal Genital Exam, Normal Rectal Exam, Normal Rectal Tone, Normal Vaginal Exam Back: Decreased Range of Motion, Vertebral Tenderness, Other (dressing intact) Extremity: Normal Capillary Refill, Normal Inspection, Normal Range of Motion, Non Tender, No Calf Tenderness, No Pedal Edema Neurologic/Psychiatric: Alert, Oriented x3, No Motor/Sensory Deficits, Depressed Affect Skin: Normal Color, Warm/Dry Lymphatic: No Adenopathy Results/Procedures Lab Patient resulted labs reviewed. Assessment/Plan Assessment and Plan Assess & Plan/Chief Complaint Assessment: Status post uncomplicated lumbar spine surgery on 05/23/18 Seven-month history of bedridden status due to severe back pain with radiculopathy Diabetes mellitus POTS Vitamin B-12 deficiency Postop anemia Recurrent UTIs Chronic headache Neurogenic bladder requiring straight catheters to empty bladder Crackles on lung exam subtle Plan: Restarted home meds Permissive hypertension due to severity of her orthostasis when standing up Pain control Bowel regimen Intensive therapies Fall risk Straight in/out caths IS Await UCx ID/S (1) Lumbar stenosis (2) POTS (postural orthostatic tachycardia syndrome) (3) History of UTI (4) Anemia due to acute blood loss (5) Weakness (6) Neuropathy (7) GERD (gastroesophageal reflux disease) (8) Diabetes mellitus (9) B12 deficiency (10) Headache (11) Neurogenic bladder (12) Bibasilar crackles Clinical Quality Measures DVT/VTE Risk/Contraindication: Risk Factor Score Per Nursin RFS Level Per Nursing on Admit: 2=Moderate MALIKA VÁZQUEZ DO May 29, 2018 09:15
[2018-05-29] MEDS: COLESTIPOL 1 GM (COLESTID) TAB PO SCH ×2 (10:32→20:46)
[2018-05-29] MEDS: GABAPENTIN 100 MG (NEURONTIN) CAP PO SCH ×3 (10:34→20:44)
[2018-05-29] MEDS: FLUTICASONE NASAL SPRAY (FLONASE) 16 GM BTL NS SCH (10:34)
[2018-05-29] MEDS: MIDODRINE 5 MG PO SCH ×3 (10:34→20:41)
[2018-05-29] MEDS: FAMOTIDINE 20 MG (PEPCID) TABLET PO SCH ×2 (10:35→20:45)
[2018-05-29] MEDS: MAGNESIUM OXIDE (MAG-OX)400 MG TAB PO SCH (10:35)
[2018-05-29] MEDS: CYCLOBENZAPRINE 10 MG (FLEXERIL) TAB PO SCH ×3 (10:36→20:44)
[2018-05-29] MEDS: FLUDROCORTISONE 0.1 MG (FLORINEF) TAB PO SCH (10:37)
[2018-05-29] MEDS: MILK OF MAGNESIA 400 MG/5 ML 30 ML UDC PO SCH (10:38)
[2018-05-29] MEDS: DOCUSATE SODIUM 100 MG (COLACE) CAP PO SCH ×2 (10:39→20:44)
[2018-05-29] MEDS: POLYETHYLENE GLYCOL 17 GM (MIRALAX) PACK PO SCH ×2 (10:39→20:20)
--- NOTE | 2018-05-29 10:40 | NUR ---
Pt unable to void. Bladder scan reveal 398ml.
--- NOTE | 2018-05-29 11:00 | NUR ---
Straight cath 380ml urine.
--- NOTE | 2018-05-29 13:27 | Occupational Ther Daily Note ---
OT Current Status-Daily Note Subjective Pt. reports 8/10 pain with movement. Nursing notified. Pt. is given pain medication. Appearance Pt. up in chair. Agrees to work with OT. Mental Status/Objective Patient Orientation: Person, Place, Time, Situation Therapy Code Descriptions/Definitions Functional [place] Measure: 0=Not Assessed/NA 4=Minimal Assistance 1=Total Assistance 5=Supervision or Setup 2=Maximal Assistance 6=Modified [place] 3=Moderate Assistance 7=Complete [place] ADL-Treatment Therapy Code Descriptions/Definitions Functional [place] Measure: 0=Not Assessed/NA 4=Minimal Assistance 1=Total Assistance 5=Supervision or Setup 2=Maximal Assistance 6=Modified [place] 3=Moderate Assistance 7=Complete [place] Therapy Quality Codes: 6 Independent with activity with or without an assistive device 5 Patient requires set up or clean up by helper. Patient completes activity by themselves 4 Supervision or touching assist (CGA). [place] provide cues , steadying assist 3 The helper provides less than half the effort to complete the activity 2 The helper provides more than half the effort to complete the activity 1 Dependent. The helper does all the effort to complete an activity 7 Patient refused to complete or attempt activity 9 The patient did not perform the activity before the current illness or injury 88 Not attempted due to Medical conditions or safety concerns Grooming (FIM): 4 Oral Hygiene (QC): 4 Bathing (FIM): 4 (CGA in stance.) Shower/Bathe Self (QC): 4 Upper Body (FIM): 5 Upper Body Dressing (QC): 4 Lower Body Dressing (FIM): 4 (Pt. is issued AE and practices this.) Lower Body Dressing (QC): 4 On/Off Footwear (QC): 5 Transfers (B, C, W/C) (FIM): 4 Education OT Patient Education: Correct positioning, Modified ADL techniques, Progress toward Goal/Update tx plan, Purpose of tx/functional activities, Reviewed precautions, Rehab process, Transfer techniques Teaching Recipient: Patient Teaching Methods: Demonstration, Discussion Response to Teaching: Verbalize Understanding, Return Demonstration OT Short Term Goals Short Term Goals Time Frame: Jun 04, 2018 Eating(FIM): 5 Grooming(FIM): 5 Bathing(FIM): 4 Upper Body Dressing(FIM): 5 Lower Body Dressing(FIM): 4 Toileting(FIM): 4 Transfers (B,C,W/C) (FIM): 4 Toilet/Commode Transfer(FIM): 4 Shower Transfer(FIM): 4 Additional Short Term Goals: 1-Demonstrate ADL Tasks, 2-Verbalize Understanding , 3-ImproveStrength/Bush[place] 1=Demonstrate adherence to instructed precautions during ADL tasks. 2=Patient will verbalize/demonstrate understanding of assistive devices/ modifications for ADL. 3=Patient will improve strength/tolerance for activity to enable patient to perform ADL's. OT Mechanical Engineering Teacher Goals Alf Goals Time Frame: Jun 11, 2018 Eating (FIM): 6 Eating (QC): 6 Groomin Oral Hygiene (QC): 6 Bathing(FIM): 5 Shower/Bathe Self (QC): 5 Upper Body Dressing(FIM): 6 Upper Body Dressing (QC): 6 Lower Body Dressing(FIM): 6 Lower Body Dressing (QC): 6 On/Off Footwear (QC): 6 Toileting(FIM): 6 Toileting Hygiene (QC): 6 Transfers (B,C,W/C) (FIM): 6 Toilet/Commode Transfer(FIM): 6 Toilet/Commode Transfer (QC): 6 Shower Transfer(FIM): 5 Additional Goals: 1-Demonstrate ADL Tasks, 2-Verbalize Understanding, 3- ImproveStrength/[place] 1=Demonstrate adherence to instructed precautions during ADL tasks. 2=Patient will verbalize/demonstrate understanding of assistive devices/ modifications for ADL. 3=Patient will improve strength/tolerance for activity to enable patient to perform ADL's. OT Education/Plan Problem List/Assessment Assessment: Decreased Activ Tolerance, Dependent Transfers, Impaired Funct Balance, Impaired I ADL's, Impaired Self-Care Skills Discharge Recommendations Plan/Recommendations: Continue POC Therapy D/C Recommendations: Home w/ Family Support, Occupational Therapy Home Care Equpiment Recommendations-D/C: Hip Kit Treatment Plan/Plan of Care Treatment,Training & Education: Yes Patient would benefit from OT for education, treatment and training to promote independence in ADL's, mobility, safety and/or upper extremity function for ADL' s. Plan of Care: ADL Retraining, Functional Mobility, Group Exercise/Act as Ind, UE Funct Exercise/Act Treatment Duration: Jun 11, 2018 Frequency: At least 5 of 7 days/Wk (IRF) Estimated Hrs Per Day: 1.5 hours per day Agreement: Yes Rehab Potential: Fair Time/GCodes Start Time: 08:30 Stop Time: 10:00 Total Time Billed (hr/min): 90 Billed Treatment Time 1, ADL x 6 MARTINA IQBAL OT May 29, 2018 13:27
--- NOTE | 2018-05-29 14:08 | Physical Therapy Daily Note ---
PT Daily Note-Current Subjective Pt. in bed, c/o she is so very tired and is anxious to eat a meal and get some good sleep. Pt. agrees to bed mob and LE exercise Pain Numeric Pain Scale: 3 Location: Medial Location Body Site: Back Pain Description: Ache Mental Status Patient Orientation: Normal For Age Transfers Therapy Code Descriptions/Definitions Functional [place] Measure: 0=Not Assessed/NA 4=Minimal Assistance 1=Total Assistance 5=Supervision or Setup 2=Maximal Assistance 6=Modified [place] 3=Moderate Assistance 7=Complete [place] Therapy Quality Codes: 6 Independent with activity with or without an assistive device 5 Patient requires set up or clean up by helper. Patient completes activity by themselves 4 Supervision or touching assist (CGA). [place] provide cues , steadying assist 3 The helper provides less than half the effort to complete the activity 2 The helper provides more than half the effort to complete the activity 1 Dependent. The helper does all the effort to complete an activity 7 Patient refused to complete or attempt activity 9 The patient did not perform the activity before the current illness or injury 88 Not attempted due to Medical conditions or safety concerns rolling left to right min assist, side to sit mod assist Weight Bearing Right Lower Extremity: Right Full Weight Bearing Left Lower Extremity: Left Full Weight Bearing Exercises Supine Ex: Ankle pumps, Quad Set, Rolling, Glut sets, Heel Slides, Short Arc Quads, Scooting (assist), Hip abd/add Supine Reps: 10 (x2) hooklying marches with core stabilized and CGA assist and education x 8 reps Assessment Current Status: Good Progress very fatigued today PT Short Term Goals Short Term Goals Time Frame: Jun 04, 2018 Transfers (B,C,W/C) (FIM): 4 Gait (FIM): 2 Gait Distance Comment: 50' Gait Level of Assist: 4 Gait Assistive Device: FWW PT Usp Goals Operating Systems Specialist Goals PT Operating Systems Specialist Goals Time Frame: Jun 18, 2018 Transfers (B,C,W/C) (FIM): 5 Sit to Lying (QC): 6 Lying-Sitting on Side/Bed(QC): 6 Sit to Stand (QC): 4 Rollin Roll Left to Right (QC): 6 Chair/Kec-dr-Setpt Xfer(QC): 4 Car Transfer (QC): 4 Gait (FIM): 5 Distance: 150' Walk 10 feet (QC): 4 Walk 10ft-Uneven Surface(QC): 4 Walk 50ft with 2 Turns (QC): 4 Walk 150 ft (QC): 4 Gait Level of Assist: 5 Gait Assistive Device: FWW Stairs (FIM): 2 # of Steps: 4 1 Step (curb) (QC): 4 4 Steps (QC): 4 Stairs Level Of Assist: 4 PT Plan Treatment/Plan Treatment Plan: Continue Plan of Care Treatment Plan: Bed Mobility, Concurrent Therapy, Education, Functional Activity [place], Functional Strength, Group Therapy, Gait, Safety, Therapeutic Exercise, Transfers Treatment Duration: Jun 04, 2018 Frequency: At least 5 of 7 days/Wk (IRF) Estimated Hrs Per Day: 1.5 hours per day Patient and/or Family Agrees t: Yes Safety Risks/Education Patient Education: Transfer Techniques, Correct Positioning, Disease Process, Safety Issues Teaching Recipient: Patient Teaching Methods: Demonstration, Discussion Response to Teaching: Verbalize Understanding, Return Demonstration, Reinforcement Needed Time/GCodes Time In: 1335 Time Out: 1405 Total Billed Treatment Time: 30 Total Billed Treatment 1,FA10m,EX20m G Codes Necessary: ZARA Kenyon PUBLIC HEALTH ADVISOR May 29, 2018 14:08
--- NOTE | 2018-05-29 15:15 | NUR ---
Back dressing changed. Waldron intact, slight serosanguineous drainage. To the left of incision at previous drain puncture site 2inch x 3/4 inch firm swollen area noted. Dr. Garg notified. Message left for Dr. Conley's nurse on voice mail to notify of changes.
[2018-05-29 17:56] VITALS: BP 148/75
--- NOTE | 2018-05-29 20:45 | NUR ---
Pt requests to be straight cathed. Straight cathed using sterile technique. 800cc light yvonne urine with a foul odor returned. Pt eliseo well. Will cont to monitor. UA sent down yesterday and still waiting on culture and sensitivity to return. Cont to monitor.
[2018-05-29] MEDS: ESTRADIOL VAGINAL CREAM 42.5 GM (ESTRACE) VG SCH (21:03)
[2018-05-30] MEDS: DROXIDOPA 200 MG PO SCH ×3 (05:17→17:57)
[2018-05-30] MEDS: HYDROcodone/APAP 5 MG/325 MG (LORTAB) TAB PO PRN ×4 (05:37→21:43)
[2018-05-30] MEDS: metFORMIN XR 500 MG (GLUCOPHAGE XR) TAB PO SCH ×2 (05:37→17:57)
[2018-05-30] MEDS: LIPASE/AMYLASE/PROTEASE (PANCRELIPASE) 5,000 UNITS CAP PO SCH ×4 (05:37→21:34)
[2018-05-30] MEDS: glipiZIDE 5 MG (GLUCOTROL) TAB PO SCH (05:37)
[2018-05-30] MEDS: VITAMIN D3 1,000 UNITS (CHOLECALCIFEROL) TABLET PO SCH (05:37)
[2018-05-30] MEDS: KCL 10 MEQ TAB (MICRO K) PO SCH ×2 (05:37→17:57)
[2018-05-30] MEDS: inSUlin ASPART (NovoLOG) 1 UNIT/0.01 ML (CHARGE PER UNIT) SC SCH ×4 (05:37→21:36)
[2018-05-30 05:40] VITALS: BP 150/77
--- NOTE | 2018-05-30 07:30 | NUR ---
Patient requests to be straight cathed. Straight catheterization performed using sterile technique. 225cc light yvonne urine with a foul odor returned. Procedure tolerated well by patient. Will cont to monitor. UTI confirmed, awaiting sensitively report.
[2018-05-30 08:43] VITALS: BP 122/78
[2018-05-30] MEDS: MIDODRINE 5 MG PO SCH ×3 (08:45→20:25)
[2018-05-30] MEDS: FLUTICASONE NASAL SPRAY (FLONASE) 16 GM BTL NS SCH (08:45)
[2018-05-30] MEDS: MAGNESIUM OXIDE (MAG-OX)400 MG TAB PO SCH (08:46)
[2018-05-30] MEDS: FAMOTIDINE 20 MG (PEPCID) TABLET PO SCH ×2 (08:46→21:34)
[2018-05-30] MEDS: FLUDROCORTISONE 0.1 MG (FLORINEF) TAB PO SCH (08:46)
[2018-05-30] MEDS: GABAPENTIN 100 MG (NEURONTIN) CAP PO SCH ×3 (08:46→21:34)
[2018-05-30] MEDS: DOCUSATE SODIUM 100 MG (COLACE) CAP PO SCH ×2 (08:47→21:35)
[2018-05-30] MEDS: COLESTIPOL 1 GM (COLESTID) TAB PO SCH ×2 (08:47→21:33)
[2018-05-30] MEDS: CYCLOBENZAPRINE 10 MG (FLEXERIL) TAB PO SCH ×3 (08:47→21:35)
[2018-05-30] MEDS: MILK OF MAGNESIA 400 MG/5 ML 30 ML UDC PO SCH (09:07)
[2018-05-30] MEDS: POLYETHYLENE GLYCOL 17 GM (MIRALAX) PACK PO SCH ×2 (09:07→21:36)
--- NOTE | 2018-05-30 09:44 | PM&R Progress Note ---
Subjective HPI/CC On Admission Date Seen by Provider: May 30, 2018 Time Seen by Provider: 09:30 CC: s/p Lumbar spine surgery with debility HPI: This is a 68-year-old white female clinic patient of Dr. Wynne who presents to the inpatient rehabilitation facility following an uncomplicated lumbar spine surgery due to lumbar stenosis from Dr. Conley on 05/23/18. She has been essentially bedridden for 7 months due to the severity of her back pain until she was able to undergo the surgery by Dr. Conley. At this current time pain is controlled and she is looking forward to getting up therapy and beginning the intensive program. She was contemplating going to skilled facility but daughter encouraged her to try inpatient rehabilitation for a more aggressive journey with therapy to recover. She does have history of postural orthostasis tachycardia syndrome and has been allowed to have permissive hypertension in order to minimize the orthostasis so she's been given her pressor therapy on an as needed basis. Her bowels are moving and she feels like she is going to have another bowel movement this evening. She has a midline back incision dressing will be changed every other day with gauze and Hypofixate and she is not a candidate for chemical DVT prophylaxis only SCDs due to high risk for spinal hematoma and compression of the spinal cord. She usually sees neurology at for the orthostasis and urology for recurrent UTIs. Subjective/Events-last exam Urine culture is pending so will await for urine culture sensitivity. I'm assuming she has a resistant organism if that is the case because of recurrent UTIs She was able to void on her own at times Still requires straight caths most of the time Overall appears to be much improved and less frail and it appears she has good potential depending on her orthostasis toleration during physical therapy Hematoma assessed on her back near the drainage site and Dr Conley recommended close monitoring Review of Systems General: Fatigue Musculoskeletal: back pain Objective Exam Vital Signs Vital Signs Date Time Temp Pulse Resp B/P (MAP) Pulse Ox O2 Delivery O2 Flow Rate FiO2 05/30/18 09:00 Room Air 05/30/18 08:43 74 122/78 (93) 05/30/18 05:40 97.6 18 94 Capillary Refill : General Appearance: No Apparent Distress, WD/WN, Chronically ill, Thin, Other ( improved today Sunday) HEENT: PERRL/EOMI, Normal ENT Inspection, Pharynx Normal, Moist Mucous Membranes Neck: Full Range of Motion, Normal Inspection, Non Tender, Supple Respiratory: Chest Non Tender, No Accessory Muscle Use, No Respiratory Distress , Crackles, Decreased Breath Sounds Cardiovascular: Regular Rate, Rhythm, No Edema, No Gallop, No JVD, No Murmur Gastrointestinal: Normal Bowel Sounds, No Organomegaly, No Pulsatile Mass, Non Tender, Soft Rectal: Normal Exam, Normal Rectal Tone Genital/Rectal: Normal Genital Exam, Normal Rectal Exam, Normal Rectal Tone, Normal Vaginal Exam Back: Decreased Range of Motion, Vertebral Tenderness, Other (dressing intact but hematoma without erythema or pain at palpation left of incision) Extremity: Normal Capillary Refill, Normal Inspection, Normal Range of Motion, Non Tender, No Calf Tenderness, No Pedal Edema Neurologic/Psychiatric: Alert, Oriented x3, No Motor/Sensory Deficits, Depressed Affect Skin: Normal Color, Warm/Dry Lymphatic: No Adenopathy Results/Procedures Lab Patient resulted labs reviewed. 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 per Dr Conley Plan: Restarted home meds Permissive hypertension due to severity of her orthostasis when standing up Pain control Bowel regimen Intensive therapies Fall risk Straight in/out caths IS Await UCx ID/S Monitor hematoma (1) Lumbar stenosis (2) POTS (postural orthostatic tachycardia syndrome) (3) History of UTI (4) Anemia due to acute blood loss (5) Weakness (6) Neuropathy (7) GERD (gastroesophageal reflux disease) (8) Diabetes mellitus (9) B12 deficiency (10) Headache (11) Neurogenic bladder (12) Bibasilar crackles (13) Hematoma following procedure Clinical Quality Measures DVT/VTE Risk/Contraindication: Risk Factor Score Per Nursin RFS Level Per Nursing on Admit: 2=Moderate MALIKA VÁZQUEZ DO May 30, 2018 09:44
--- NOTE | 2018-05-30 09:56 | Physical Therapy Daily Note ---
PT Daily Note-Current Subjective Patient in recliner pre tx, agrees to PT, has 8/10 pain in back. Nurse aware of pain and that patient has a lump on her back, doctor also aware she came to see patient during treatment. Patient needs to be dressed upper and lower, does upper with independence, does lower with min assist. Appearance Patient in recliner post tx with nurse call, phone, tray, all needs met. Mental Status Patient Orientation: Person, Place, Situation, Normal For Age Transfers Therapy Code Descriptions/Definitions Functional [place] Measure: 0=Not Assessed/NA 4=Minimal Assistance 1=Total Assistance 5=Supervision or Setup 2=Maximal Assistance 6=Modified [place] 3=Moderate Assistance 7=Complete [place] Therapy Quality Codes: 6 Independent with activity with or without an assistive device 5 Patient requires set up or clean up by helper. Patient completes activity by themselves 4 Supervision or touching assist (CGA). [place] provide cues , steadying assist 3 The helper provides less than half the effort to complete the activity 2 The helper provides more than half the effort to complete the activity 1 Dependent. The helper does all the effort to complete an activity 7 Patient refused to complete or attempt activity 9 The patient did not perform the activity before the current illness or injury 88 Not attempted due to Medical conditions or safety concerns Transfers (B, C, W/C) (FIM): 4 Sit to/from Stand: 4 Bed to/from Chair: 4 CGA, patient did not need assist to stand from a lower surface today, she required some effort on her part but did it without assist. Weight Bearing Right Lower Extremity: Right Full Weight Bearing Left Lower Extremity: Left Full Weight Bearing Gait Training Gait (FIM): 2 Distance: 120'x2 Gait Level of Assist: 4 Gait Persons Needed: 1 Gait Assistive Device: FWW CGA, patient leans heavily on her arms, antalgic, slumped posture Exercises Seated Therapy Exercises: Ankle pumps, Hip flexion, Hip abd/add Seated Reps: 20 LAQ alternating for 5 min with 2# ankle weights NuStep Minutes: 5 NuStep Workload: 4 Treatments transfers, ambulation, functional strengthening Assessment Current Status: Fair Progress improving ambulation and endurance PT Short Term Goals Short Term Goals Time Frame: Jun 04, 2018 Transfers (B,C,W/C) (FIM): 4 Gait (FIM): 2 Gait Distance Comment: 50' Gait Level of Assist: 4 Gait Assistive Device: FWW PT Mortar Maker Goals Mortar Maker Goals PT Mortar Maker Goals Time Frame: Jun 18, 2018 Transfers (B,C,W/C) (FIM): 5 Sit to Lying (QC): 6 Lying-Sitting on Side/Bed(QC): 6 Sit to Stand (QC): 4 Rollin Roll Left to Right (QC): 6 Chair/Brl-uf-Tgobt Xfer(QC): 4 Car Transfer (QC): 4 Gait (FIM): 5 Distance: 150' Walk 10 feet (QC): 4 Walk 10ft-Uneven Surface(QC): 4 Walk 50ft with 2 Turns (QC): 4 Walk 150 ft (QC): 4 Gait Level of Assist: 5 Gait Assistive Device: FWW Stairs (FIM): 2 # of Steps: 4 1 Step (curb) (QC): 4 4 Steps (QC): 4 Stairs Level Of Assist: 4 PT Plan Problem List Problem List: Activity Tolerance, Functional Strength, Safety, Balance, Gait, Transfer, Bed Mobility, ROM Treatment/Plan Treatment Plan: Continue Plan of Care Treatment Plan: Bed Mobility, Concurrent Therapy, Education, Functional Activity [place], Functional Strength, Group Therapy, Gait, Safety, Therapeutic Exercise, Transfers Treatment Duration: Jun 04, 2018 Frequency: At least 5 of 7 days/Wk (IRF) Estimated Hrs Per Day: 1.5 hours per day Patient and/or Family Agrees t: Yes Safety Risks/Education Patient Education: Gait Training, Transfer Techniques, Correct Positioning, Safety Issues Teaching Recipient: Patient Teaching Methods: Demonstration, Discussion Response to Teaching: Reinforcement Needed Time/GCodes Time In: 0900 Time Out: 1000 Total Billed Treatment Time: 60 Total Billed Treatment 1 visit GT 30' FA 10' EX 20' ANGELIC TRAN PT May 30, 2018 09:56
--- NOTE | 2018-05-30 13:00 | NUR ---
0930: Call placed to Dr. Conley's office, Ortho physician at [facility]. Message left regarding large hard area to left side of surgical incision at old drain site and increased serosanguineous drainage from surgical incision. Area is raised, hard and extends down from site approx 3 inches. 1010: Call received from Dr. Conley's office. SOFIA Salomon, asked that photos of incision and raised area be sent to Dr. Conley's e-mail. This nurse relayed information to patient. Patient is in agreement with sending photos using her cell phone. Photos sent. 1300: Call received from Aime at Dr. Conley's office. Area appears to be a hematoma. Instructions given to continue to monitor area and notify physician if it increases in size or if any issues arise with incision.
--- NOTE | 2018-05-30 13:30 | NUR ---
Patient requests to be straight cathed. Straight catheterization performed using sterile technique. 600cc light yvonne urine with a foul odor returned. Procedure tolerated well by patient. Will cont to monitor. UTI confirmed, sensitively report received. Dr. Garg notified, orders for antibiotic obtained.
--- NOTE | 2018-05-30 13:52 | Physical Therapy Daily Note ---
PT Daily Note-Current Subjective Patient in bed pre tx, agrees to PT, has no complaints of pain at rest. Appearance Patient in bed post tx with nurse call, phone, tray, all needs met. Mental Status Patient Orientation: Person, Place, Situation Transfers Therapy Code Descriptions/Definitions Functional [place] Measure: 0=Not Assessed/NA 4=Minimal Assistance 1=Total Assistance 5=Supervision or Setup 2=Maximal Assistance 6=Modified [place] 3=Moderate Assistance 7=Complete [place] Therapy Quality Codes: 6 Independent with activity with or without an assistive device 5 Patient requires set up or clean up by helper. Patient completes activity by themselves 4 Supervision or touching assist (CGA). [place] provide cues , steadying assist 3 The helper provides less than half the effort to complete the activity 2 The helper provides more than half the effort to complete the activity 1 Dependent. The helper does all the effort to complete an activity 7 Patient refused to complete or attempt activity 9 The patient did not perform the activity before the current illness or injury 88 Not attempted due to Medical conditions or safety concerns Transfers (B, C, W/C) (FIM): 4 Scootin Rollin Supine to/from Sit: 5 Sit to/from Stand: 4 Bed to/from Chair: 4 Patient performs supine <-> sit with some effort but only CGA. Weight Bearing Right Lower Extremity: Right Full Weight Bearing Left Lower Extremity: Left Full Weight Bearing Gait Training Gait (FIM): 2 Distance: 120'x2 Gait Level of Assist: 5 Gait Persons Needed: 1 Gait Assistive Device: FWW Only SBA this afternoon, slow but steady ambulation Treatments bed mobility and transfers, ambulation Assessment Current Status: Fair Progress Improved ambulation, patient needs extra time for transitions due to weakness but is improving PT Short Term Goals Short Term Goals Time Frame: Jun 04, 2018 Transfers (B,C,W/C) (FIM): 4 Gait (FIM): 2 Gait Distance Comment: 50' Gait Level of Assist: 4 Gait Assistive Device: FWW PT Lamp Shade Assembler Goals [place] Assembler Goals PT Skilled Nursing Goals Time Frame: Jun 18, 2018 Transfers (B,C,W/C) (FIM): 5 Sit to Lying (QC): 6 Lying-Sitting on Side/Bed(QC): 6 Sit to Stand (QC): 4 Rollin Roll Left to Right (QC): 6 Chair/Zqj-zh-Wdoys Xfer(QC): 4 Car Transfer (QC): 4 Gait (FIM): 5 Distance: 150' Walk 10 feet (QC): 4 Walk 10ft-Uneven Surface(QC): 4 Walk 50ft with 2 Turns (QC): 4 Walk 150 ft (QC): 4 Gait Level of Assist: 5 Gait Assistive Device: FWW Stairs (FIM): 2 # of Steps: 4 1 Step (curb) (QC): 4 4 Steps (QC): 4 Stairs Level Of Assist: 4 PT Plan Problem List Problem List: Activity Tolerance, Functional Strength, Safety, Balance, Gait, Transfer, Bed Mobility, ROM Treatment/Plan Treatment Plan: Continue Plan of Care Treatment Plan: Bed Mobility, Concurrent Therapy, Education, Functional Activity [place], Functional Strength, Group Therapy, Gait, Safety, Therapeutic Exercise, Transfers Treatment Duration: Jun 04, 2018 Frequency: At least 5 of 7 days/Wk (IRF) Estimated Hrs Per Day: 1.5 hours per day Patient and/or Family Agrees t: Yes Safety Risks/Education Patient Education: Gait Training, Transfer Techniques, Correct Positioning, Safety Issues Teaching Recipient: Patient Teaching Methods: Demonstration, Discussion Response to Teaching: Reinforcement Needed Time/GCodes Time In: 1325 Time Out: 1355 Total Billed Treatment Time: 30 Total Billed Treatment 1 visit GT 20' FA 10' ANGELIC TRAN PT May 30, 2018 13:52
--- NOTE | 2018-05-30 13:58 | Occupational Ther Daily Note ---
OT Current Status-Daily Note Subjective Pt. does not report pain level, but states that she is in pain at back level. Nursing has just given her pain pill at beginning of treatment. Appearance Pt. is up in chair. Pt. is adamant that she does not want a shower. OT explains that she can provide soft shower chair and will roll pt. in. Pt. states that she would still like to spongebathe instead. Mental Status/Objective Patient Orientation: Person, Place, Time, Situation Therapy Code Descriptions/Definitions Functional [place] Measure: 0=Not Assessed/NA 4=Minimal Assistance 1=Total Assistance 5=Supervision or Setup 2=Maximal Assistance 6=Modified [place] 3=Moderate Assistance 7=Complete [place] ADL-Treatment Therapy Code Descriptions/Definitions Functional [place] Measure: 0=Not Assessed/NA 4=Minimal Assistance 1=Total Assistance 5=Supervision or Setup 2=Maximal Assistance 6=Modified [place] 3=Moderate Assistance 7=Complete [place] Therapy Quality Codes: 6 Independent with activity with or without an assistive device 5 Patient requires set up or clean up by helper. Patient completes activity by themselves 4 Supervision or touching assist (CGA). [place] provide cues , steadying assist 3 The helper provides less than half the effort to complete the activity 2 The helper provides more than half the effort to complete the activity 1 Dependent. The helper does all the effort to complete an activity 7 Patient refused to complete or attempt activity 9 The patient did not perform the activity before the current illness or injury 88 Not attempted due to Medical conditions or safety concerns Grooming (FIM): 4 (Min assist to thoroughly brush hair.) Oral Hygiene (QC): 4 Bathing (FIM): 4 (CGA in stance for balance. Pt. is able to wash all parts with increased time and LH sponge.) Shower/Bathe Self (QC): 4 Upper Body (FIM): 5 Upper Body Dressing (QC): 4 Lower Body Dressing (FIM): 4 (CGA in stance to don pants and underwear over hips.) Lower Body Dressing (QC): 4 On/Off Footwear (QC): 5 Transfers (B, C, W/C) (FIM): 4 (Sit-stand and transfer to bed.) Other Treatment Pt. agrees to spongebathe but declines showering. Pt. requires increased time overall for tasks. Transferred to bed after treatment. Education OT Patient Education: Correct positioning, Modified ADL techniques, Progress toward Goal/Update tx plan, Purpose of tx/functional activities, Reviewed precautions, Rehab process, Transfer techniques Teaching Recipient: Patient Teaching Methods: Demonstration, Discussion Response to Teaching: Verbalize Understanding, Return Demonstration OT Short Term Goals Short Term Goals Time Frame: Jun 04, 2018 Eating(FIM): 5 Grooming(FIM): 5 Bathing(FIM): 4 Upper Body Dressing(FIM): 5 Lower Body Dressing(FIM): 4 Toileting(FIM): 4 Transfers (B,C,W/C) (FIM): 4 Toilet/Commode Transfer(FIM): 4 Shower Transfer(FIM): 4 Additional Short Term Goals: 1-Demonstrate ADL Tasks, 2-Verbalize Understanding , 3-ImproveStrength/[place] 1=Demonstrate adherence to instructed precautions during ADL tasks. 2=Patient will verbalize/demonstrate understanding of assistive devices/ modifications for ADL. 3=Patient will improve strength/tolerance for activity to enable patient to perform ADL's. OT Retirement Goals Retirement Goals Time Frame: Jun 11, 2018 Eating (FIM): 6 Eating (QC): 6 Groomin Oral Hygiene (QC): 6 Bathing(FIM): 5 Shower/Bathe Self (QC): 5 Upper Body Dressing(FIM): 6 Upper Body Dressing (QC): 6 Lower Body Dressing(FIM): 6 Lower Body Dressing (QC): 6 On/Off Footwear (QC): 6 Toileting(FIM): 6 Toileting Hygiene (QC): 6 Transfers (B,C,W/C) (FIM): 6 Toilet/Commode Transfer(FIM): 6 Toilet/Commode Transfer (QC): 6 Shower Transfer(FIM): 5 Additional Goals: 1-Demonstrate ADL Tasks, 2-Verbalize Understanding, 3- ImproveStrength/[place] 1=Demonstrate adherence to instructed precautions during ADL tasks. 2=Patient will verbalize/demonstrate understanding of assistive devices/ modifications for ADL. 3=Patient will improve strength/tolerance for activity to enable patient to perform ADL's. OT Education/Plan Problem List/Assessment Assessment: Decreased Activ Tolerance, Impaired Funct Balance, Impaired I ADL's , Impaired Self-Care Skills Discharge Recommendations Plan/Recommendations: Continue POC Therapy D/C Recommendations: Home w/ Family Support, Occupational Therapy Home Care Treatment Plan/Plan of Care Treatment,Training & Education: Yes Patient would benefit from OT for education, treatment and training to promote independence in ADL's, mobility, safety and/or upper extremity function for ADL' s. Plan of Care: ADL Retraining, Functional Mobility, Group Exercise/Act as Ind, UE Funct Exercise/Act Treatment Duration: Jun 11, 2018 Frequency: At least 5 of 7 days/Wk (IRF) Estimated Hrs Per Day: 1.5 hours per day Agreement: Yes Rehab Potential: Fair Time/GCodes Start Time: 10:00 Stop Time: 11:30 Total Time Billed (hr/min): 90 Billed Treatment Time 1, ADL x 6 MARTINA IQBAL OT May 30, 2018 13:58
[2018-05-30 15:09] VITALS: BP 125/79
[2018-05-30] MEDS: NITROFURANTOIN 100 MG (MACROBID) CAPSULE PO SCH ×2 (15:13→21:34)
--- NOTE | 2018-05-30 18:00 | NUR ---
Patient requests to be straight cathed. Straight catheterization performed using sterile technique. 500cc light yvonne urine with a foul odor returned. Procedure tolerated well by patient. Will cont to monitor.
[2018-05-30 18:17] VITALS: BP 168/81
[2018-05-31 05:18] VITALS: BP 110/71
[2018-05-31] MEDS: DROXIDOPA 200 MG PO SCH ×3 (06:20→18:01)
[2018-05-31] MEDS: KCL 10 MEQ TAB (MICRO K) PO SCH ×2 (06:21→15:53)
[2018-05-31] MEDS: metFORMIN XR 500 MG (GLUCOPHAGE XR) TAB PO SCH ×2 (06:21→15:53)
[2018-05-31] MEDS: LIPASE/AMYLASE/PROTEASE (PANCRELIPASE) 5,000 UNITS CAP PO SCH ×4 (06:21→20:50)
[2018-05-31] MEDS: glipiZIDE 5 MG (GLUCOTROL) TAB PO SCH (06:21)
[2018-05-31] MEDS: VITAMIN D3 1,000 UNITS (CHOLECALCIFEROL) TABLET PO SCH (06:21)
[2018-05-31] MEDS: inSUlin ASPART (NovoLOG) 1 UNIT/0.01 ML (CHARGE PER UNIT) SC SCH ×4 (06:22→20:58)
[2018-05-31] MEDS: POLYETHYLENE GLYCOL 17 GM (MIRALAX) PACK PO SCH ×2 (08:14→20:58)
[2018-05-31] MEDS: MILK OF MAGNESIA 400 MG/5 ML 30 ML UDC PO SCH (08:14)
[2018-05-31] MEDS: DOCUSATE SODIUM 100 MG (COLACE) CAP PO SCH ×2 (08:15→20:58)
[2018-05-31] MEDS: CYCLOBENZAPRINE 10 MG (FLEXERIL) TAB PO SCH ×3 (08:15→20:51)
[2018-05-31] MEDS: FAMOTIDINE 20 MG (PEPCID) TABLET PO SCH ×2 (08:15→20:50)
[2018-05-31] MEDS: NITROFURANTOIN 100 MG (MACROBID) CAPSULE PO SCH ×2 (08:15→20:50)
[2018-05-31] MEDS: MAGNESIUM OXIDE (MAG-OX)400 MG TAB PO SCH (08:16)
[2018-05-31] MEDS: GABAPENTIN 100 MG (NEURONTIN) CAP PO SCH ×3 (08:16→20:50)
[2018-05-31] MEDS: HYDROcodone/APAP 5 MG/325 MG (LORTAB) TAB PO PRN ×3 (08:16→21:05)
[2018-05-31] MEDS: FLUTICASONE NASAL SPRAY (FLONASE) 16 GM BTL NS SCH (08:17)
[2018-05-31] MEDS: FLUDROCORTISONE 0.1 MG (FLORINEF) TAB PO SCH (08:20)
[2018-05-31] MEDS: MIDODRINE 5 MG PO SCH ×3 (08:21→20:50)
--- NOTE | 2018-05-31 08:46 | PM&R Progress Note ---
Subjective HPI/CC On Admission Date Seen by Provider: May 31, 2018 Time Seen by Provider: 09:00 CC: s/p Lumbar spine surgery with debility HPI: This is a 68-year-old white female clinic patient of Dr. Wynne who presents to the inpatient rehabilitation facility following an uncomplicated lumbar spine surgery due to lumbar stenosis from Dr. Conley on 05/23/18. She has been essentially bedridden for 7 months due to the severity of her back pain until she was able to undergo the surgery by Dr. Conley. At this current time pain is controlled and she is looking forward to getting up therapy and beginning the intensive program. She was contemplating going to skilled facility but daughter encouraged her to try inpatient rehabilitation for a more aggressive journey with therapy to recover. She does have history of postural orthostasis tachycardia syndrome and has been allowed to have permissive hypertension in order to minimize the orthostasis so she's been given her pressor therapy on an as needed basis. Her bowels are moving and she feels like she is going to have another bowel movement this evening. She has a midline back incision dressing will be changed every other day with gauze and Hypofixate and she is not a candidate for chemical DVT prophylaxis only SCDs due to high risk for spinal hematoma and compression of the spinal cord. She usually sees neurology at for the orthostasis and urology for recurrent UTIs. Subjective/Events-last exam Urine culture reviewed and placed on Macrobid She is able to void on her own at times but not consistently, still requires straight caths most of the time Overall appears to be much improved and less frail and it appears she has good potential depending on her orthostasis toleration during physical therapy and we talked about that today and she is glad she came here too Hematoma will continue to be assessed on her back near the drainage site and Dr Conley recommended close monitoring but without erythema or enlargement Checked meds and labs Taking Miralax for mild constipation Review of Systems General: Fatigue Gastrointestinal: Constipation Musculoskeletal: back pain Objective Exam Vital Signs Vital Signs Date Time Temp Pulse Resp B/P (MAP) Pulse Ox O2 Delivery O2 Flow Rate FiO2 05/31/18 10:42 Room Air 05/31/18 05:18 97.2 85 18 110/71 (84) 98 Capillary Refill : General Appearance: No Apparent Distress, WD/WN, Chronically ill, Thin, Other ( improved today Everardo) HEENT: PERRL/EOMI, Normal ENT Inspection, Pharynx Normal, Moist Mucous Membranes Neck: Full Range of Motion, Normal Inspection, Non Tender, Supple Respiratory: Chest Non Tender, No Accessory Muscle Use, No Respiratory Distress , Crackles, Decreased Breath Sounds Cardiovascular: Regular Rate, Rhythm, No Edema, No Gallop, No JVD, No Murmur Gastrointestinal: Normal Bowel Sounds, No Organomegaly, No Pulsatile Mass, Non Tender, Soft Rectal: Normal Exam, Normal Rectal Tone Genital/Rectal: Normal Genital Exam, Normal Rectal Exam, Normal Rectal Tone, Normal Vaginal Exam Back: Decreased Range of Motion, Vertebral Tenderness, Other (dressing intact but hematoma without erythema or pain at palpation left of incision) Extremity: Normal Capillary Refill, Normal Inspection, Normal Range of Motion, Non Tender, No Calf Tenderness, No Pedal Edema Neurologic/Psychiatric: Alert, Oriented x3, No Motor/Sensory Deficits, Depressed Affect Skin: Normal Color, Warm/Dry Lymphatic: No Adenopathy Results/Procedures Lab Patient resulted labs reviewed. 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 per Dr Conley Plan: Maintain on home meds Permissive hypertension due to severity of her orthostasis when standing up Pain control Bowel regimen with Miralax Intensive therapies Fall risk Straight in/out caths prn IS Macrobid for UTI treatment Monitor hematoma (1) Lumbar stenosis (2) POTS (postural orthostatic tachycardia syndrome) (3) History of UTI (4) Anemia due to acute blood loss (5) Weakness (6) Neuropathy (7) GERD (gastroesophageal reflux disease) (8) Diabetes mellitus (9) B12 deficiency (10) Headache (11) Neurogenic bladder (12) Bibasilar crackles (13) Hematoma following procedure (14) Acute UTI Clinical Quality Measures DVT/VTE Risk/Contraindication: Risk Factor Score Per Nursin RFS Level Per Nursing on Admit: 2=Moderate MALIKA VÁZQUEZ DO May 31, 2018 08:46
--- NOTE | 2018-05-31 09:53 | Physical Therapy Daily Note ---
PT Daily Note-Current Subjective Patient in recliner pre tx, agrees to PT, has pain of 6/10 in back, states that the lump in her back has gone down. At the end of treatment patient states her pain is 7-8/10 but nurse has already given her pain meds. Appearance Patient in bed post tx with nurse call, phone, tray, all needs met. Mental Status Patient Orientation: Person, Place, Situation, Normal For Age Transfers Therapy Code Descriptions/Definitions Functional [place] Measure: 0=Not Assessed/NA 4=Minimal Assistance 1=Total Assistance 5=Supervision or Setup 2=Maximal Assistance 6=Modified [place] 3=Moderate Assistance 7=Complete [place] Therapy Quality Codes: 6 Independent with activity with or without an assistive device 5 Patient requires set up or clean up by helper. Patient completes activity by themselves 4 Supervision or touching assist (CGA). [place] provide cues , steadying assist 3 The helper provides less than half the effort to complete the activity 2 The helper provides more than half the effort to complete the activity 1 Dependent. The helper does all the effort to complete an activity 7 Patient refused to complete or attempt activity 9 The patient did not perform the activity before the current illness or injury 88 Not attempted due to Medical conditions or safety concerns Transfers (B, C, W/C) (FIM): 5 Scootin Rollin Supine to/from Sit: 5 Sit to/from Stand: 5 Bed to/from Chair: 5 Weight Bearing Right Lower Extremity: Right Full Weight Bearing Left Lower Extremity: Left Full Weight Bearing Gait Training Gait (FIM): 5 Distance: 200'x2 Gait Level of Assist: 5 Gait Persons Needed: 1 Gait Assistive Device: FWW Very slow, antalgic ambulation but steady, leans heavily on arms to take pressure off her back. Exercises Seated Therapy Exercises: Ankle pumps, Hip flexion, Hip abd/add Seated Reps: 20 Standing: Hip Abduction, Heel/toe raises, Marching, Mini squats Standing Reps: 15 LAQ alternating for 5 min with 2# ankle weights Treatments bed mobility and transfers, ambulation, functional strengthening Assessment Current Status: Fair Progress improving endurance PT Short Term Goals Short Term Goals Time Frame: Jun 04, 2018 Transfers (B,C,W/C) (FIM): 4 Gait (FIM): 2 Gait Distance Comment: 50' Gait Level of Assist: 4 Gait Assistive Device: FWW PT Penitentiary Goals Penitentiary Goals PT Contract Manager Goals Time Frame: Jun 18, 2018 Transfers (B,C,W/C) (FIM): 5 Sit to Lying (QC): 6 Lying-Sitting on Side/Bed(QC): 6 Sit to Stand (QC): 4 Rollin Roll Left to Right (QC): 6 Chair/Sau-sv-Mcuvq Xfer(QC): 4 Car Transfer (QC): 4 Gait (FIM): 5 Distance: 150' Walk 10 feet (QC): 4 Walk 10ft-Uneven Surface(QC): 4 Walk 50ft with 2 Turns (QC): 4 Walk 150 ft (QC): 4 Gait Level of Assist: 5 Gait Assistive Device: FWW Stairs (FIM): 2 # of Steps: 4 1 Step (curb) (QC): 4 4 Steps (QC): 4 Stairs Level Of Assist: 4 PT Plan Problem List Problem List: Activity Tolerance, Functional Strength, Safety, Balance, Gait, Transfer, Bed Mobility, ROM Treatment/Plan Treatment Plan: Continue Plan of Care Treatment Plan: Bed Mobility, Concurrent Therapy, Education, Functional Activity [place], Functional Strength, Group Therapy, Gait, Safety, Therapeutic Exercise, Transfers Treatment Duration: Jun 04, 2018 Frequency: At least 5 of 7 days/Wk (IRF) Estimated Hrs Per Day: 1.5 hours per day Patient and/or Family Agrees t: Yes Safety Risks/Education Patient Education: Gait Training, Transfer Techniques, Correct Positioning, Safety Issues Teaching Recipient: Patient Teaching Methods: Demonstration, Discussion Response to Teaching: Reinforcement Needed Time/GCodes Time In: 0900 Time Out: 1000 Total Billed Treatment Time: 60 Total Billed Treatment 1 visit GT 25' EX 35' ANGELIC TRAN PT May 31, 2018 09:53
[2018-05-31] MEDS: COLESTIPOL 1 GM (COLESTID) TAB PO SCH ×2 (10:41→20:51)
[2018-05-31 12:44] VITALS: BP 147/69
--- NOTE | 2018-05-31 13:18 | Occupational Ther Daily Note ---
OT Current Status-Daily Note Subjective Pt in bed, agrees to treatment. Pt reports 7/10 back pain. Mental Status/Objective Therapy Code Descriptions/Definitions Functional [place] Measure: 0=Not Assessed/NA 4=Minimal Assistance 1=Total Assistance 5=Supervision or Setup 2=Maximal Assistance 6=Modified [place] 3=Moderate Assistance 7=Complete [place] ADL-Treatment Pt supine to sit with supervision. Declined shower today, but agrees to sponge bath. Sit to stand and transfer to chair with CGA using FWW. Sponge bath completed seated in chair. Upper body bathing completed with SBA. Pt able to wash lower body with CGA for balance. Don pullover shirt with set up. Pt donned underwear and pants with CGA for balance during pant hike. Doffs/dons bilateral socks with SBA. Increased time for bathing and dressing. Pt combed hair without assistance while seated. Pt fatigues with activity and takes occasional rest breaks throughout treatment. Transfer to bed with CGA. Sit to supine with SBA. Pt resting in bed with needs met after session. Therapy Code Descriptions/Definitions Functional [place] Measure: 0=Not Assessed/NA 4=Minimal Assistance 1=Total Assistance 5=Supervision or Setup 2=Maximal Assistance 6=Modified [place] 3=Moderate Assistance 7=Complete [place] Therapy Quality Codes: 6 Independent with activity with or without an assistive device 5 Patient requires set up or clean up by helper. Patient completes activity by themselves 4 Supervision or touching assist (CGA). [place] provide cues , steadying assist 3 The helper provides less than half the effort to complete the activity 2 The helper provides more than half the effort to complete the activity 1 Dependent. The helper does all the effort to complete an activity 7 Patient refused to complete or attempt activity 9 The patient did not perform the activity before the current illness or injury 88 Not attempted due to Medical conditions or safety concerns Bathing (FIM): 4 Shower/Bathe Self (QC): 4 Upper Body (FIM): 5 Upper Body Dressing (QC): 5 Lower Body Dressing (FIM): 4 Lower Body Dressing (QC): 4 Education OT Patient Education: Safety issues Teaching Recipient: Patient Teaching Methods: Discussion Response to Teaching: Verbalize Understanding OT Short Term Goals Short Term Goals Time Frame: Jun 04, 2018 Eating(FIM): 5 Grooming(FIM): 5 Bathing(FIM): 4 Upper Body Dressing(FIM): 5 Lower Body Dressing(FIM): 4 Toileting(FIM): 4 Transfers (B,C,W/C) (FIM): 4 Toilet/Commode Transfer(FIM): 4 Shower Transfer(FIM): 4 Additional Short Term Goals: 1-Demonstrate ADL Tasks, 2-Verbalize Understanding , 3-ImproveStrength/[place] 1=Demonstrate adherence to instructed precautions during ADL tasks. 2=Patient will verbalize/demonstrate understanding of assistive devices/ modifications for ADL. 3=Patient will improve strength/tolerance for activity to enable patient to perform ADL's. OT Airplane Flight Attendant Goals Airplane Flight Attendant Goals Time Frame: Jun 11, 2018 Eating (FIM): 6 Eating (QC): 6 Groomin Oral Hygiene (QC): 6 Bathing(FIM): 5 Shower/Bathe Self (QC): 5 Upper Body Dressing(FIM): 6 Upper Body Dressing (QC): 6 Lower Body Dressing(FIM): 6 Lower Body Dressing (QC): 6 On/Off Footwear (QC): 6 Toileting(FIM): 6 Toileting Hygiene (QC): 6 Transfers (B,C,W/C) (FIM): 6 Toilet/Commode Transfer(FIM): 6 Toilet/Commode Transfer (QC): 6 Shower Transfer(FIM): 5 Additional Goals: 1-Demonstrate ADL Tasks, 2-Verbalize Understanding, 3- ImproveStrength/[place] 1=Demonstrate adherence to instructed precautions during ADL tasks. 2=Patient will verbalize/demonstrate understanding of assistive devices/ modifications for ADL. 3=Patient will improve strength/tolerance for activity to enable patient to perform ADL's. OT Education/Plan Discharge Recommendations Plan/Recommendations: Continue POC Treatment Plan/Plan of Care Patient would benefit from OT for education, treatment and training to promote independence in ADL's, mobility, safety and/or upper extremity function for ADL' s. Plan of Care: ADL Retraining, Functional Mobility, Group Exercise/Act as Ind, UE Funct Exercise/Act Treatment Duration: Jun 11, 2018 Frequency: At least 5 of 7 days/Wk (IRF) Estimated Hrs Per Day: 1.5 hours per day Agreement: Yes Rehab Potential: Fair Time/GCodes Start Time: 10:35 Stop Time: 11:35 Total Time Billed (hr/min): 60 Billed Treatment Time 1 visit, ADLx4(60minutes) ADALGISA LIANG OT May 31, 2018 13:18
--- NOTE | 2018-05-31 14:51 | Therapy Group Daily Note ---
Therapy Daily Group Note Patient Education Topic Home Safety Exercises LE Seated Exercise, UE Exercise Other/Notes Pt participated in group therapy with 4 to 1 ratio. Goals of session: Verbalize or acknowledge understanding of ARU description/ expectation, (met). Complete UE/LE seated exercises without difficulty, (met). Verbalize or acknowledge understanding of home safety and home equipment, ( ongoing) OT/PT group consisted of introductions (name, place living, reason for being at ARU), socialization, UE/LE seated exercises, home safety education and equipment that can be used and home safety trivia game. Pt introduced self appropriately then actively listened to peers. Pt contributed to conversations and initiated questions/answers throughout group. Pt completed UE/LE exercises without difficulty. Pt was able to verbalize understanding of educational topics by answering questions accurately and giving stating own experiences. Pt acknowledged understanding of ARU by gestures in agreement. Pt benefitted from group by using knowledge gained during daily activity and situations at home. After therapy, pt sitting in recliner with call light/phone in reach. All needs met in room. Start Time: 13:00 Stop Time: 14:05 Total Billed Treatment Time: 65 Total Billed Treatment 1-GRP RIVAS BALBUENA May 31, 2018 14:51
[2018-05-31 17:59] VITALS: BP 133/68
[2018-05-31 20:49] VITALS: BP 156/85
[2018-05-31] MEDS: ESTRADIOL VAGINAL CREAM 42.5 GM (ESTRACE) VG SCH (20:59)
--- NOTE | 2018-06-01 03:35 | NUR ---
pt straight cathed with 15fr sterile technique 600cc immediate return yvonne color urine
[2018-06-01 05:12] VITALS: BP 117/60
[2018-06-01] MEDS: inSUlin ASPART (NovoLOG) 1 UNIT/0.01 ML (CHARGE PER UNIT) SC SCH ×4 (05:15→21:55)
[2018-06-01] MEDS: LIPASE/AMYLASE/PROTEASE (PANCRELIPASE) 5,000 UNITS CAP PO SCH ×4 (06:21→20:34)
[2018-06-01] MEDS: glipiZIDE 5 MG (GLUCOTROL) TAB PO SCH (06:22)
[2018-06-01] MEDS: DROXIDOPA 200 MG PO SCH ×3 (06:22→17:39)
[2018-06-01] MEDS: VITAMIN D3 1,000 UNITS (CHOLECALCIFEROL) TABLET PO SCH (06:23)
[2018-06-01] MEDS: metFORMIN XR 500 MG (GLUCOPHAGE XR) TAB PO SCH ×2 (06:23→17:38)
[2018-06-01] MEDS: KCL 10 MEQ TAB (MICRO K) PO SCH ×2 (06:23→17:38)
[2018-06-01 08:21] VITALS: BP 154/84
[2018-06-01] MEDS: MAGNESIUM OXIDE (MAG-OX)400 MG TAB PO SCH (08:22)
[2018-06-01] MEDS: GABAPENTIN 100 MG (NEURONTIN) CAP PO SCH ×3 (08:22→20:34)
[2018-06-01] MEDS: HYDROcodone/APAP 5 MG/325 MG (LORTAB) TAB PO PRN ×3 (08:22→22:18)
[2018-06-01] MEDS: CYCLOBENZAPRINE 10 MG (FLEXERIL) TAB PO SCH ×3 (08:23→20:34)
[2018-06-01] MEDS: NITROFURANTOIN 100 MG (MACROBID) CAPSULE PO SCH ×2 (08:23→20:34)
[2018-06-01] MEDS: FAMOTIDINE 20 MG (PEPCID) TABLET PO SCH ×2 (08:23→20:34)
[2018-06-01] MEDS: FLUTICASONE NASAL SPRAY (FLONASE) 16 GM BTL NS SCH (08:23)
[2018-06-01] MEDS: COLESTIPOL 1 GM (COLESTID) TAB PO SCH ×2 (08:24→20:33)
[2018-06-01] MEDS: FLUDROCORTISONE 0.1 MG (FLORINEF) TAB PO SCH (09:19)
[2018-06-01] MEDS: POLYETHYLENE GLYCOL 17 GM (MIRALAX) PACK PO SCH ×2 (09:19→20:34)
[2018-06-01] MEDS: DOCUSATE SODIUM 100 MG (COLACE) CAP PO SCH ×2 (09:19→20:34)
[2018-06-01] MEDS: MIDODRINE 5 MG PO SCH ×3 (09:20→20:33)
[2018-06-01] MEDS: MILK OF MAGNESIA 400 MG/5 ML 30 ML UDC PO SCH (09:20)
--- NOTE | 2018-06-01 10:00 | Occupational Ther Daily Note ---
OT Current Status-Daily Note Subjective Pt alert and in bed upon therapist arrival. Pt agreeable to participate with therapy services this date, and reporting 4/10 pain in lower back. Pain Numeric Pain Scale: 4 Mental Status/Objective Therapy Code Descriptions/Definitions Functional [place] Measure: 0=Not Assessed/NA 4=Minimal Assistance 1=Total Assistance 5=Supervision or Setup 2=Maximal Assistance 6=Modified [place] 3=Moderate Assistance 7=Complete [place] ADL-Treatment Therapy Code Descriptions/Definitions Functional [place] Measure: 0=Not Assessed/NA 4=Minimal Assistance 1=Total Assistance 5=Supervision or Setup 2=Maximal Assistance 6=Modified [place] 3=Moderate Assistance 7=Complete [place] Therapy Quality Codes: 6 Independent with activity with or without an assistive device 5 Patient requires set up or clean up by helper. Patient completes activity by themselves 4 Supervision or touching assist (CGA). [place] provide cues , steadying assist 3 The helper provides less than half the effort to complete the activity 2 The helper provides more than half the effort to complete the activity 1 Dependent. The helper does all the effort to complete an activity 7 Patient refused to complete or attempt activity 9 The patient did not perform the activity before the current illness or injury 88 Not attempted due to Medical conditions or safety concerns Grooming (FIM): 5 Upper Body (FIM): 5 Lower Body Dressing (FIM): 4 (Pt required Leonie to manage pants over hips, and CGA to stand safely.) Toileting (FIM): 4 (Pt required CGA for clothing management and Leonie to manage pants over hips.) Transfers (B, C, W/C) (FIM): 4 (CGA for all functional transfers) Other Treatment Pt participated in functional ambulation to/from the therapy gym with CGA and the need for frequent rest breaks. Pt's vital signs monitored with 02 remaining between 97-99%, HR 98, and BP 130/80. Pt required verbal cues to maintain spinal precautions during LBD and toileting tasks. Pt participated in dynamic standing balance therapeutic activities to improve her balance and cardiopulmonary capacity required for ADLs and functional mobility. Education OT Patient Education: Correct positioning, Energy conservation, Modified ADL techniques, Purpose of tx/functional activities, Reviewed precautions, Safety issues, Transfer techniques Teaching Recipient: Patient Teaching Methods: Demonstration, Discussion Response to Teaching: Verbalize Understanding OT Short Term Goals Short Term Goals Time Frame: Jun 04, 2018 Eating(FIM): 5 Grooming(FIM): 5 Bathing(FIM): 4 Upper Body Dressing(FIM): 5 Lower Body Dressing(FIM): 4 Toileting(FIM): 4 Transfers (B,C,W/C) (FIM): 4 Toilet/Commode Transfer(FIM): 4 Shower Transfer(FIM): 4 Additional Short Term Goals: 1-Demonstrate ADL Tasks, 2-Verbalize Understanding , 3-ImproveStrength/[place] 1=Demonstrate adherence to instructed precautions during ADL tasks. 2=Patient will verbalize/demonstrate understanding of assistive devices/ modifications for ADL. 3=Patient will improve strength/tolerance for activity to enable patient to perform ADL's. OT Shelter Goals [employer] W[employer] Etch Operator Goals Time Frame: Jun 11, 2018 Eating (FIM): 6 Eating (QC): 6 Groomin Oral Hygiene (QC): 6 Bathing(FIM): 5 Shower/Bathe Self (QC): 5 Upper Body Dressing(FIM): 6 Upper Body Dressing (QC): 6 Lower Body Dressing(FIM): 6 Lower Body Dressing (QC): 6 On/Off Footwear (QC): 6 Toileting(FIM): 6 Toileting Hygiene (QC): 6 Transfers (B,C,W/C) (FIM): 6 Toilet/Commode Transfer(FIM): 6 Toilet/Commode Transfer (QC): 6 Shower Transfer(FIM): 5 Additional Goals: 1-Demonstrate ADL Tasks, 2-Verbalize Understanding, 3- ImproveStrength/[place] 1=Demonstrate adherence to instructed precautions during ADL tasks. 2=Patient will verbalize/demonstrate understanding of assistive devices/ modifications for ADL. 3=Patient will improve strength/tolerance for activity to enable patient to perform ADL's. OT Education/Plan Discharge Recommendations Plan/Recommendations: Continue POC Treatment Plan/Plan of Care Patient would benefit from OT for education, treatment and training to promote independence in ADL's, mobility, safety and/or upper extremity function for ADL' s. Plan of Care: ADL Retraining, Functional Mobility, Group Exercise/Act as Ind, UE Funct Exercise/Act Treatment Duration: Jun 11, 2018 Frequency: At least 5 of 7 days/Wk (IRF) Estimated Hrs Per Day: 1.5 hours per day Agreement: Yes Rehab Potential: Good Time/GCodes Start Time: 08:15 Stop Time: 09:45 Total Time Billed (hr/min): 90 Billed Treatment Time 1, ADL4, FA2 SHIRA ARGUELLES OT Jun 01, 2018 10:00
--- NOTE | 2018-06-01 10:48 | PM&R Progress Note ---
Subjective HPI/CC On Admission Date Seen by Provider: Jun 01, 2018 Time Seen by Provider: 10:45 CC: s/p Lumbar spine surgery with debility HPI: This is a 68-year-old white female clinic patient of Dr. Wynne who presents to the inpatient rehabilitation facility following an uncomplicated lumbar spine surgery due to lumbar stenosis from Dr. Conley on 05/23/18. She has been essentially bedridden for 7 months due to the severity of her back pain until she was able to undergo the surgery by Dr. Conley. At this current time pain is controlled and she is looking forward to getting up therapy and beginning the intensive program. She was contemplating going to skilled facility but daughter encouraged her to try inpatient rehabilitation for a more aggressive journey with therapy to recover. She does have history of postural orthostasis tachycardia syndrome and has been allowed to have permissive hypertension in order to minimize the orthostasis so she's been given her pressor therapy on an as needed basis. Her bowels are moving and she feels like she is going to have another bowel movement this evening. She has a midline back incision dressing will be changed every other day with gauze and Hypofixate and she is not a candidate for chemical DVT prophylaxis only SCDs due to high risk for spinal hematoma and compression of the spinal cord. She usually sees neurology at for the orthostasis and urology for recurrent UTIs. Subjective/Events-last exam Macrobid tolerated well She is able to void on her own at times but not consistently, still requires straight caths most of the time Overall appears to be much improved and less frail and it appears she has good potential depending on her orthostasis toleration during physical therapy and we talked about that again today and she is glad she came here too Hematoma resolved but Dr Conley recommended close monitoring Checked meds and labs Taking Miralax for mild constipation Review of Systems General: Fatigue Musculoskeletal: back pain Neurological: Weakness, Numbness, Incoordination Objective Exam Vital Signs Vital Signs Date Time Temp Pulse Resp B/P (MAP) Pulse Ox O2 Delivery O2 Flow Rate FiO2 06/01/18 13:52 85 167/83 (111) 06/01/18 09:00 Room Air 06/01/18 05:12 97.0 18 97 Capillary Refill : General Appearance: No Apparent Distress, WD/WN, Chronically ill, Thin, Other ( improved today Sunday) HEENT: PERRL/EOMI, Normal ENT Inspection, Pharynx Normal, Moist Mucous Membranes Neck: Full Range of Motion, Normal Inspection, Non Tender, Supple Respiratory: Chest Non Tender, No Accessory Muscle Use, No Respiratory Distress , Crackles, Decreased Breath Sounds Cardiovascular: Regular Rate, Rhythm, No Edema, No Gallop, No JVD, No Murmur Gastrointestinal: Normal Bowel Sounds, No Organomegaly, No Pulsatile Mass, Non Tender, Soft Rectal: Normal Exam, Normal Rectal Tone Genital/Rectal: Normal Genital Exam, Normal Rectal Exam, Normal Rectal Tone, Normal Vaginal Exam Back: Decreased Range of Motion, Vertebral Tenderness, Other (dressing intact but hematoma without erythema or pain at palpation left of incision) Extremity: Normal Capillary Refill, Normal Inspection, Normal Range of Motion, Non Tender, No Calf Tenderness, No Pedal Edema Neurologic/Psychiatric: Alert, Oriented x3, No Motor/Sensory Deficits, Depressed Affect Skin: Normal Color, Warm/Dry Lymphatic: No Adenopathy Results/Procedures Lab Patient resulted labs reviewed. 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 near incision now resolved Plan: Maintain on home meds Permissive hypertension due to severity of her orthostasis when standing up Pain control Bowel regimen with Miralax Intensive therapies Fall risk Straight in/out caths prn IS Macrobid for UTI treatment Monitor hematoma (1) Lumbar stenosis (2) POTS (postural orthostatic tachycardia syndrome) (3) History of UTI (4) Anemia due to acute blood loss (5) Weakness (6) Neuropathy (7) GERD (gastroesophageal reflux disease) (8) Diabetes mellitus (9) B12 deficiency (10) Headache (11) Neurogenic bladder (12) Bibasilar crackles (13) Hematoma following procedure (14) Acute UTI Clinical Quality Measures DVT/VTE Risk/Contraindication: Risk Factor Score Per Nursin RFS Level Per Nursing on Admit: 2=Moderate MALIKA VÁZQUEZ DO Jun 01, 2018 10:48
--- NOTE | 2018-06-01 11:41 | Physical Therapy Daily Note ---
PT Daily Note-Current Subjective Pt. in gym with OT present, agrees to PT. Pt. has no c/o pain, only dizziness with standing. Transfers Therapy Code Descriptions/Definitions Functional [place] Measure: 0=Not Assessed/NA 4=Minimal Assistance 1=Total Assistance 5=Supervision or Setup 2=Maximal Assistance 6=Modified [place] 3=Moderate Assistance 7=Complete [place] Therapy Quality Codes: 6 Independent with activity with or without an assistive device 5 Patient requires set up or clean up by helper. Patient completes activity by themselves 4 Supervision or touching assist (CGA). [place] provide cues , steadying assist 3 The helper provides less than half the effort to complete the activity 2 The helper provides more than half the effort to complete the activity 1 Dependent. The helper does all the effort to complete an activity 7 Patient refused to complete or attempt activity 9 The patient did not perform the activity before the current illness or injury 88 Not attempted due to Medical conditions or safety concerns Transfers (B, C, W/C) (FIM): 4 Sit to/from Stand: 4 Sit to Lying (QC): 5 Weight Bearing Right Lower Extremity: Right Full Weight Bearing Left Lower Extremity: Left Full Weight Bearing Gait Training Does the Patient Walk?: Yes Gait (FIM): 4 Distance (FIM): 3=150 ft Distance: 2 x 150 ft Gait Level of Assist: 4 Gait Persons Needed: 1 Gait Assistive Device: FWW Exercises Seated Therapy Exercises: Ankle pumps, Long arc quads, Hip abd/add, Glut set Seated Reps: 15 Standing: Hip Abduction, Hamstring curls, Heel/toe raises, Marching, Mini squats, Side steps Standing Reps: 10 CGA/min A for standing balance for ball toss with OT x 4 reps of 10-15 tosses NuStep Minutes: 15 NuStep Workload: 5 Treatments gait, exercise, balance activities Assessment Current Status: Good Progress Pt. fatigues quickly with standing exercises and c/o dizziness after about 1 minute of standing activity. She has no LOB during gait but fatigues in the LE' s quickly requiring seated rest. Pt. has weakness in the L LE during exercises , poor standing balance without UE assist on walker or // bars. Pt. returned to room post session, SBA with sit to supine in bed. All needs met post session. PT Short Term Goals Short Term Goals Time Frame: Jun 04, 2018 Transfers (B,C,W/C) (FIM): 4 Gait (FIM): 2 Gait Distance Comment: 50' Gait Level of Assist: 4 Gait Assistive Device: FWW PT Peeled Potato Inspector Goals Longterm Goals PT Longterm Goals Time Frame: Jun 18, 2018 Transfers (B,C,W/C) (FIM): 5 Sit to Lying (QC): 6 Lying-Sitting on Side/Bed(QC): 6 Sit to Stand (QC): 4 Rollin Roll Left to Right (QC): 6 Chair/Qoc-ur-Scwzd Xfer(QC): 4 Car Transfer (QC): 4 Gait (FIM): 5 Distance: 150' Walk 10 feet (QC): 4 Walk 10ft-Uneven Surface(QC): 4 Walk 50ft with 2 Turns (QC): 4 Walk 150 ft (QC): 4 Gait Level of Assist: 5 Gait Assistive Device: FWW Stairs (FIM): 2 # of Steps: 4 1 Step (curb) (QC): 4 4 Steps (QC): 4 Stairs Level Of Assist: 4 PT Plan Treatment/Plan Treatment Plan: Continue Plan of Care Treatment Plan: Bed Mobility, Concurrent Therapy, Education, Functional Activity [place], Functional Strength, Group Therapy, Gait, Safety, Therapeutic Exercise, Transfers Treatment Duration: Jun 04, 2018 Frequency: At least 5 of 7 days/Wk (IRF) Estimated Hrs Per Day: 1.5 hours per day Patient and/or Family Agrees t: Yes Time/GCodes Time In: 926 Time Out: 1056 Total Billed Treatment Time: 90 Total Billed Treatment 1, GT 15', NM 15', Ex 60'. Co-tx with OT x 15' working on standing balance with UE activity PADMINI EDWARDS PT Jun 01, 2018 11:41
[2018-06-01 13:52] VITALS: BP 167/83
[2018-06-01 18:04] VITALS: BP 137/78
--- NOTE | 2018-06-02 04:00 | NUR ---
pt straight cathed immediate return 650cc yvonne color urine without difficulty
[2018-06-02 05:16] VITALS: BP 112/69
[2018-06-02] MEDS: glipiZIDE 5 MG (GLUCOTROL) TAB PO SCH (06:13)
[2018-06-02] MEDS: VITAMIN D3 1,000 UNITS (CHOLECALCIFEROL) TABLET PO SCH (06:13)
[2018-06-02] MEDS: metFORMIN XR 500 MG (GLUCOPHAGE XR) TAB PO SCH ×2 (06:13→17:41)
[2018-06-02] MEDS: LIPASE/AMYLASE/PROTEASE (PANCRELIPASE) 5,000 UNITS CAP PO SCH ×4 (06:13→21:10)
[2018-06-02] MEDS: DROXIDOPA 200 MG PO SCH ×3 (06:13→17:48)
[2018-06-02] MEDS: KCL 10 MEQ TAB (MICRO K) PO SCH ×2 (06:13→17:41)
--- NOTE | 2018-06-02 06:29 | PM&R Progress Note ---
Subjective HPI/CC On Admission Date Seen by Provider: Jun 02, 2018 Time Seen by Provider: 06:15 CC: s/p Lumbar spine surgery with debility HPI: This is a 68-year-old white female clinic patient of Dr. Wynne who presents to the inpatient rehabilitation facility following an uncomplicated lumbar spine surgery due to lumbar stenosis from Dr. Conley on 05/23/18. She has been essentially bedridden for 7 months due to the severity of her back pain until she was able to undergo the surgery by Dr. Conley. At this current time pain is controlled and she is looking forward to getting up therapy and beginning the intensive program. She was contemplating going to skilled facility but daughter encouraged her to try inpatient rehabilitation for a more aggressive journey with therapy to recover. She does have history of postural orthostasis tachycardia syndrome and has been allowed to have permissive hypertension in order to minimize the orthostasis so she's been given her pressor therapy on an as needed basis. Her bowels are moving and she feels like she is going to have another bowel movement this evening. She has a midline back incision dressing will be changed every other day with gauze and Hypofixate and she is not a candidate for chemical DVT prophylaxis only SCDs due to high risk for spinal hematoma and compression of the spinal cord. She usually sees neurology at for the orthostasis and urology for recurrent UTIs. Subjective/Events-last exam Macrobid tolerated well Requires straight caths most of the time Overall appears to be much improved and less frail and it appears she has good potential depending on her orthostasis toleration during physical therapy and we talked about that again today and she is glad she came here too Hematoma resolved but will monitor Checked meds and labs Taking Miralax for mild constipation prn BP stable Review of Systems General: Fatigue Musculoskeletal: back pain Objective Exam Vital Signs Vital Signs Date Time Temp Pulse Resp B/P (MAP) Pulse Ox O2 Delivery O2 Flow Rate FiO2 06/02/18 13:20 79 180/92 (121) 06/02/18 09:00 Room Air 06/02/18 05:16 98.9 18 95 Capillary Refill : General Appearance: No Apparent Distress, WD/WN, Chronically ill, Thin, Other ( improved today Sunday) HEENT: PERRL/EOMI, Normal ENT Inspection, Pharynx Normal, Moist Mucous Membranes Neck: Full Range of Motion, Normal Inspection, Non Tender, Supple Respiratory: Chest Non Tender, Lungs Clear, Normal Breath Sounds, No Accessory Muscle Use, No Respiratory Distress Cardiovascular: Regular Rate, Rhythm, No Edema, No Gallop, No JVD, No Murmur Gastrointestinal: Normal Bowel Sounds, No Organomegaly, No Pulsatile Mass, Non Tender, Soft Rectal: Normal Exam, Normal Rectal Tone Genital/Rectal: Normal Genital Exam, Normal Rectal Exam, Normal Rectal Tone, Normal Vaginal Exam Back: Decreased Range of Motion, Vertebral Tenderness, Other (dressing intact but hematoma without erythema or pain at palpation left of incision) Extremity: Normal Capillary Refill, Normal Inspection, Normal Range of Motion, Non Tender, No Calf Tenderness, No Pedal Edema Neurologic/Psychiatric: Alert, Oriented x3, No Motor/Sensory Deficits, Depressed Affect Skin: Normal Color, Warm/Dry Lymphatic: No Adenopathy Results/Procedures Lab Patient resulted labs reviewed. Assessment/Plan Assessment and Plan Assess & Plan/Chief Complaint Assessment: Status post uncomplicated lumbar spine surgery on 05/23/18 Seven-month history of bedridden status due to severe back pain with radiculopathy Diabetes mellitus POTS Vitamin B-12 deficiency Postop anemia Recurrent UTIs Acute UTI placed on Macrobid 05/30/18 x 7 days Chronic headache Neurogenic bladder requiring straight catheters to empty bladder s/p crackles on lung exam resolved now s/p hematoma near incision now resolved Plan: Maintain on home meds Permissive hypertension due to severity of her orthostasis when standing up Pain control Bowel regimen with Miralax Intensive therapies Fall risk Straight in/out caths prn IS Macrobid for UTI treatment Monitor resolved hematoma area (1) Lumbar stenosis (2) POTS (postural orthostatic tachycardia syndrome) (3) History of UTI (4) Anemia due to acute blood loss (5) Weakness (6) Neuropathy (7) GERD (gastroesophageal reflux disease) (8) Diabetes mellitus (9) B12 deficiency (10) Headache (11) Neurogenic bladder (12) Hematoma following procedure (13) Acute UTI Clinical Quality Measures DVT/VTE Risk/Contraindication: Risk Factor Score Per Nursin RFS Level Per Nursing on Admit: 2=Moderate MALIKA VÁZQUEZ DO Jun 02, 2018 06:29
[2018-06-02] MEDS: inSUlin ASPART (NovoLOG) 1 UNIT/0.01 ML (CHARGE PER UNIT) SC SCH ×4 (06:48→21:56)
[2018-06-02 08:37] VITALS: BP 148/77
[2018-06-02] MEDS: POLYETHYLENE GLYCOL 17 GM (MIRALAX) PACK PO SCH ×2 (09:00→21:11)
[2018-06-02] MEDS: NITROFURANTOIN 100 MG (MACROBID) CAPSULE PO SCH ×2 (09:00→21:10)
[2018-06-02] MEDS: FAMOTIDINE 20 MG (PEPCID) TABLET PO SCH ×2 (09:00→21:11)
[2018-06-02] MEDS: DOCUSATE SODIUM 100 MG (COLACE) CAP PO SCH ×2 (09:00→21:11)
[2018-06-02] MEDS: MIDODRINE 5 MG PO SCH ×3 (09:00→21:08)
[2018-06-02] MEDS: FLUDROCORTISONE 0.1 MG (FLORINEF) TAB PO SCH (09:00)
[2018-06-02] MEDS: MILK OF MAGNESIA 400 MG/5 ML 30 ML UDC PO SCH (09:00)
[2018-06-02] MEDS: MAGNESIUM OXIDE (MAG-OX)400 MG TAB PO SCH (09:00)
[2018-06-02] MEDS: CYCLOBENZAPRINE 10 MG (FLEXERIL) TAB PO SCH ×3 (09:00→21:10)
[2018-06-02] MEDS: COLESTIPOL 1 GM (COLESTID) TAB PO SCH ×2 (09:00→21:10)
[2018-06-02] MEDS: GABAPENTIN 100 MG (NEURONTIN) CAP PO SCH ×3 (09:00→21:10)
[2018-06-02] MEDS: FLUTICASONE NASAL SPRAY (FLONASE) 16 GM BTL NS SCH (09:00)
[2018-06-02 13:20] VITALS: BP 180/92
[2018-06-02] MEDS: HYDROcodone/APAP 5 MG/325 MG (LORTAB) TAB PO PRN ×2 (14:55→19:08)
[2018-06-02 17:59] VITALS: BP 138/75
--- NOTE | 2018-06-02 20:00 | NUR ---
pt straight cathed 600cc immediate return yvonne color urine
[2018-06-02 21:07] VITALS: BP 119/64
[2018-06-03] VITALS (8 sets, daily range): BP systolic 58–185; BP diastolic 37–85
[2018-06-03] MEDS: LIPASE/AMYLASE/PROTEASE (PANCRELIPASE) 5,000 UNITS CAP PO SCH ×4 (06:11→20:19)
[2018-06-03] MEDS: KCL 10 MEQ TAB (MICRO K) PO SCH ×2 (06:11→17:10)
[2018-06-03] MEDS: metFORMIN XR 500 MG (GLUCOPHAGE XR) TAB PO SCH ×2 (06:11→17:10)
[2018-06-03] MEDS: HYDROcodone/APAP 5 MG/325 MG (LORTAB) TAB PO PRN ×3 (06:11→20:21)
[2018-06-03] MEDS: glipiZIDE 5 MG (GLUCOTROL) TAB PO SCH (06:11)
[2018-06-03] MEDS: VITAMIN D3 1,000 UNITS (CHOLECALCIFEROL) TABLET PO SCH (06:11)
[2018-06-03] MEDS: DROXIDOPA 200 MG PO SCH ×3 (06:12→17:12)
[2018-06-03] MEDS: inSUlin ASPART (NovoLOG) 1 UNIT/0.01 ML (CHARGE PER UNIT) SC SCH ×4 (06:13→20:21)
[2018-06-03 06:22] LABS: BASOPHILS # (AUTO) 0.1 10^3/uL (0.0-0.1); BASOPHILS % (AUTO) 1 % (0-10); EOSINOPHILS # (AUTO) 0.1 10^3/uL (0.0-0.3); EOSINOPHILS % (AUTO) 2 % (0-10); HEMATOCRIT 33 % (35-52); HEMOGLOBIN 10.6 G/DL (11.5-16.0); LYMPHOCYTES # (AUTO) 2.1 X 10^3 (1.0-4.0); LYMPHOCYTES % (AUTO) 28 % (12-44); MEAN CORPUSCULAR HEMOGLOBIN 31 PG (25-34); MEAN CORPUSCULAR HGB CONC 32 G/DL (32-36); MEAN CORPUSCULAR VOLUME 97 FL (80-99); MEAN PLATELET VOLUME 8.5 FL (7.4-10.4); MONOCYTES # (AUTO) 0.9 X 10^3 (0.0-1.0); MONOCYTES % (AUTO) 11 % (0-12); NEUTROPHILS # (AUTO) 4.4 X 10^3 (1.8-7.8); NEUTROPHILS % (AUTO) 59 % (42-75); PLATELET COUNT 538 10^3/uL (130-400); RED CELL DISTRIBUTION WIDTH 13.2 % (10.0-14.5); WHITE BLOOD COUNT 7.5 10^3/uL (4.3-11.0)
[2018-06-03 06:40] LABS: ALANINE AMINOTRANSFERASE 11 U/L (0-55); ALBUMIN 3.7 GM/DL (3.2-4.5); ALKALINE PHOSPHATASE 79 U/L (40-136); BILIRUBIN,TOTAL 0.2 MG/DL (0.1-1.0); BUN/CREATININE RATIO 17; CALCIUM 9.8 MG/DL (8.5-10.1); CARBON DIOXIDE 29 MMOL/L (21-32); CHLORIDE 96 MMOL/L (98-107); CREATININE SERUM 0.86 MG/DL (0.60-1.30); GFR ESTIMATED > 60; GLUCOSE 86 MG/DL (70-105); POTASSIUM 4.7 MMOL/L (3.6-5.0); SODIUM 137 MMOL/L (135-145); TOTAL PROTEIN 7.4 GM/DL (6.4-8.2)
[2018-06-03] MEDS: GABAPENTIN 100 MG (NEURONTIN) CAP PO SCH ×3 (08:16→20:20)
[2018-06-03] MEDS: NITROFURANTOIN 100 MG (MACROBID) CAPSULE PO SCH ×2 (08:16→20:20)
[2018-06-03] MEDS: CYCLOBENZAPRINE 10 MG (FLEXERIL) TAB PO SCH ×3 (08:16→20:20)
[2018-06-03] MEDS: FLUDROCORTISONE 0.1 MG (FLORINEF) TAB PO SCH (08:17)
[2018-06-03] MEDS: FAMOTIDINE 20 MG (PEPCID) TABLET PO SCH ×2 (08:17→20:26)
[2018-06-03] MEDS: MAGNESIUM OXIDE (MAG-OX)400 MG TAB PO SCH (08:18)
[2018-06-03] MEDS: DOCUSATE SODIUM 100 MG (COLACE) CAP PO SCH ×2 (08:18→20:14)
[2018-06-03] MEDS: POLYETHYLENE GLYCOL 17 GM (MIRALAX) PACK PO SCH ×2 (08:19→20:18)
[2018-06-03] MEDS: MILK OF MAGNESIA 400 MG/5 ML 30 ML UDC PO SCH (08:20)
[2018-06-03] MEDS: MIDODRINE 5 MG PO SCH ×3 (08:20→20:51)
[2018-06-03] MEDS: FLUTICASONE NASAL SPRAY (FLONASE) 16 GM BTL NS SCH (08:21)
--- NOTE | 2018-06-03 08:45 | PM&R Progress Note ---
Subjective HPI/CC On Admission Date Seen by Provider: Jun 03, 2018 Time Seen by Provider: 08:30 CC: s/p Lumbar spine surgery with debility HPI: This is a 68-year-old white female clinic patient of Dr. Wynne who presents to the inpatient rehabilitation facility following an uncomplicated lumbar spine surgery due to lumbar stenosis from Dr. Conley on 05/23/18. She has been essentially bedridden for 7 months due to the severity of her back pain until she was able to undergo the surgery by Dr. Conley. At this current time pain is controlled and she is looking forward to getting up therapy and beginning the intensive program. She was contemplating going to skilled facility but daughter encouraged her to try inpatient rehabilitation for a more aggressive journey with therapy to recover. She does have history of postural orthostasis tachycardia syndrome and has been allowed to have permissive hypertension in order to minimize the orthostasis so she's been given her pressor therapy on an as needed basis. Her bowels are moving and she feels like she is going to have another bowel movement this evening. She has a midline back incision dressing will be changed every other day with gauze and Hypofixate and she is not a candidate for chemical DVT prophylaxis only SCDs due to high risk for spinal hematoma and compression of the spinal cord. She usually sees neurology at for the orthostasis and urology for recurrent UTIs. Subjective/Events-last exam Labs were normal, HgB stable. Pain after 3.5 hours of PT on Sunday. Overall dramatic improvement Eating and drinking a little better. Pt is using IS. Overall dramatic improvement Review of Systems General: Fatigue Musculoskeletal: back pain Neurological: Weakness, Incoordination Objective Exam Vital Signs Vital Signs Date Time Temp Pulse Resp B/P (MAP) Pulse Ox O2 Delivery O2 Flow Rate FiO2 06/03/18 20:36 Room Air 06/03/18 18:23 97.6 80 20 98/62 (74) 97 Capillary Refill : General Appearance: No Apparent Distress, WD/WN, Chronically ill, Thin, Other ( improved today Sunday) HEENT: PERRL/EOMI, Normal ENT Inspection, Pharynx Normal, Moist Mucous Membranes Neck: Full Range of Motion, Normal Inspection, Non Tender, Supple Respiratory: Chest Non Tender, Lungs Clear, Normal Breath Sounds, No Accessory Muscle Use, No Respiratory Distress Cardiovascular: Regular Rate, Rhythm, No Edema, No Gallop, No JVD, No Murmur Gastrointestinal: Normal Bowel Sounds, No Organomegaly, No Pulsatile Mass, Non Tender, Soft Rectal: Normal Exam, Normal Rectal Tone Genital/Rectal: Normal Genital Exam, Normal Rectal Exam, Normal Rectal Tone, Normal Vaginal Exam Back: Decreased Range of Motion, Vertebral Tenderness, Other (dressing intact but hematoma without erythema or pain at palpation left of incision) Extremity: Normal Capillary Refill, Normal Inspection, Normal Range of Motion, Non Tender, No Calf Tenderness, No Pedal Edema Neurologic/Psychiatric: Alert, Oriented x3, No Motor/Sensory Deficits, Depressed Affect Skin: Normal Color, Warm/Dry Lymphatic: No Adenopathy Results/Procedures Lab Laboratory Tests 06/03/18 05:40 Patient resulted labs reviewed. Assessment/Plan Assessment and Plan Assess & Plan/Chief Complaint Assessment: Status post uncomplicated lumbar spine surgery on 05/23/18 Seven-month history of bedridden status due to severe back pain with radiculopathy Diabetes mellitus POTS Vitamin B-12 deficiency Postop anemia Recurrent UTIs Acute UTI placed on Macrobid 05/30/18 x 7 days Chronic headache Neurogenic bladder requiring straight catheters to empty bladder s/p crackles on lung exam resolved now s/p hematoma near incision now resolved Plan: Maintain on home meds Permissive hypertension due to severity of her orthostasis when standing up Pain control Bowel regimen with Miralax Intensive therapies Fall risk Straight in/out caths prn IS Macrobid for UTI treatment Monitor resolved hematoma area (1) Lumbar stenosis (2) POTS (postural orthostatic tachycardia syndrome) (3) History of UTI (4) Anemia due to acute blood loss (5) Weakness (6) Neuropathy (7) GERD (gastroesophageal reflux disease) (8) Diabetes mellitus (9) B12 deficiency (10) Headache (11) Neurogenic bladder (12) Hematoma following procedure (13) Acute UTI Clinical Quality Measures DVT/VTE Risk/Contraindication: Risk Factor Score Per Nursin RFS Level Per Nursing on Admit: 2=Moderate MALIKA VÁZQUEZ DO Jun 03, 2018 08:45
[2018-06-03] MEDS: COLESTIPOL 1 GM (COLESTID) TAB PO SCH ×2 (10:29→20:19)
--- NOTE | 2018-06-03 11:08 | Physical Therapy Daily Note ---
PT Daily Note-Current Subjective Pt. states her back is hurting a lot this morning. Rates pain at 6-7/10. Agrees to gentle exercise with LEs and requests some massage to neck ans shoulders. Family here to visit , both stating she wants to DC either Sun or Sunday Pain Numeric Pain Scale: 6 Location: Medial Location Body Site: Back Pain Description: Throbbing Mental Status Patient Orientation: Normal For Age Transfers Therapy Code Descriptions/Definitions Functional [place] Measure: 0=Not Assessed/NA 4=Minimal Assistance 1=Total Assistance 5=Supervision or Setup 2=Maximal Assistance 6=Modified [place] 3=Moderate Assistance 7=Complete [place] Therapy Quality Codes: 6 Independent with activity with or without an assistive device 5 Patient requires set up or clean up by helper. Patient completes activity by themselves 4 Supervision or touching assist (CGA). [place] provide cues , steadying assist 3 The helper provides less than half the effort to complete the activity 2 The helper provides more than half the effort to complete the activity 1 Dependent. The helper does all the effort to complete an activity 7 Patient refused to complete or attempt activity 9 The patient did not perform the activity before the current illness or injury 88 Not attempted due to Medical conditions or safety concerns Transfers (B, C, W/C) (FIM): 4 Scootin Rollin Supine to/from Sit: 4 Sit to/from Stand: 5 Weight Bearing Right Lower Extremity: Right Full Weight Bearing Left Lower Extremity: Left Full Weight Bearing Gait Training Does the Patient Walk?: Yes Gait (FIM): 5 Distance (FIM): 3=150 ft (150x2) Gait Level of Assist: 5 Gait Persons Needed: 1 Gait Assistive Device: FWW slow, no LOB Exercises Supine Ex: Ankle pumps, Quad Set, Rolling, Glut sets, Heel Slides, Short Arc Quads, Scooting, Hip abd/add Supine Reps: 20 Seated Therapy Exercises: Ankle pumps, Sit to stand, Long arc quads, Hip flexion, Hip abd/add Seated Reps: 20 Treatments massage to cervical paraspinals and upper thoracic as well as bilat shoulders for pain and muscle relaxation /pain reduction Assessment Current Status: Good Progress pt. has positive attitude, gives good effort PT Short Term Goals Short Term Goals Time Frame: Jun 04, 2018 Transfers (B,C,W/C) (FIM): 4 Gait (FIM): 2 Gait Distance Comment: 50' Gait Level of Assist: 4 Gait Assistive Device: FWW PT Alf Goals Alf Goals PT Timber Packer Goals Time Frame: Jun 18, 2018 Transfers (B,C,W/C) (FIM): 5 Sit to Lying (QC): 6 Lying-Sitting on Side/Bed(QC): 6 Sit to Stand (QC): 4 Rollin Roll Left to Right (QC): 6 Chair/Sgi-im-Qnvlc Xfer(QC): 4 Car Transfer (QC): 4 Gait (FIM): 5 Distance: 150' Walk 10 feet (QC): 4 Walk 10ft-Uneven Surface(QC): 4 Walk 50ft with 2 Turns (QC): 4 Walk 150 ft (QC): 4 Gait Level of Assist: 5 Gait Assistive Device: FWW Stairs (FIM): 2 # of Steps: 4 1 Step (curb) (QC): 4 4 Steps (QC): 4 Stairs Level Of Assist: 4 PT Plan Treatment/Plan Treatment Plan: Continue Plan of Care Treatment Plan: Bed Mobility, Concurrent Therapy, Education, Functional Activity [place], Functional Strength, Group Therapy, Gait, Safety, Therapeutic Exercise, Transfers Treatment Duration: Jun 04, 2018 Frequency: At least 5 of 7 days/Wk (IRF) Estimated Hrs Per Day: 1.5 hours per day Patient and/or Family Agrees t: Yes Safety Risks/Education Patient Education: Gait Training, Transfer Techniques, Correct Positioning, Disease Process, Safety Issues Teaching Recipient: Patient Teaching Methods: Demonstration, Discussion Response to Teaching: Verbalize Understanding, Return Demonstration, Reinforcement Needed Time/GCodes Time In: 1000 Time Out: 1100 Total Billed Treatment Time: 60 Total Billed Treatment 1,EX30m,FA15m,GT15m G Codes Necessary: ZARA Kenyon PHOTOCOMPOSITION KEYBOARD OPERATOR Jun 03, 2018 11:08
--- NOTE | 2018-06-03 11:10 | NUR ---
Pastoral care visit, offered prayer and support.
--- NOTE | 2018-06-03 12:00 | NUR ---
Pt requested to have straight cath. 300ml out.
--- NOTE | 2018-06-03 13:22 | Occupational Ther Daily Note ---
OT Current Status-Daily Note Subjective Pt. reports 9/10 back pain. Nursing has already given pt. pain medication. Appearance Pt. in bed. States that she is having a lot of pain. OT encourages pt. to participate. States that she will spongebathe, but declines showering. Mental Status/Objective Patient Orientation: Person, Place Therapy Code Descriptions/Definitions Functional [place] Measure: 0=Not Assessed/NA 4=Minimal Assistance 1=Total Assistance 5=Supervision or Setup 2=Maximal Assistance 6=Modified [place] 3=Moderate Assistance 7=Complete [place] ADL-Treatment Therapy Code Descriptions/Definitions Functional [place] Measure: 0=Not Assessed/NA 4=Minimal Assistance 1=Total Assistance 5=Supervision or Setup 2=Maximal Assistance 6=Modified [place] 3=Moderate Assistance 7=Complete [place] Therapy Quality Codes: 6 Independent with activity with or without an assistive device 5 Patient requires set up or clean up by helper. Patient completes activity by themselves 4 Supervision or touching assist (CGA). [place] provide cues , steadying assist 3 The helper provides less than half the effort to complete the activity 2 The helper provides more than half the effort to complete the activity 1 Dependent. The helper does all the effort to complete an activity 7 Patient refused to complete or attempt activity 9 The patient did not perform the activity before the current illness or injury 88 Not attempted due to Medical conditions or safety concerns Grooming (FIM): 5 (Set up to brush hair.) Bathing (FIM): 5 (Set up in chair to wash all parts.) Shower/Bathe Self (QC): 5 Upper Body (FIM): 5 Upper Body Dressing (QC): 4 Lower Body Dressing (FIM): 4 (CGA in stance to pull up pants over hips.) Lower Body Dressing (QC): 4 On/Off Footwear (QC): 5 (slipper socks.) Transfers (B, C, W/C) (FIM): 4 Pt. requires increased time and multiple rest breaks during ADLs this a.m. Will report dizziness at times with standing. BP taken and is 102/64. Pt. reports pain with certain movements, and is very guarded with moving quickly. Pt. agrees to ambulate to therapy gym after ADLs. Requires CGA and multiple rest breaks. Once in therapy gym, pt. rested and then ambulated back with rest breaks along the way. All needs met back in room. Education OT Patient Education: Correct positioning, Modified ADL techniques, Progress toward Goal/Update tx plan, Purpose of tx/functional activities, Reviewed precautions, Rehab process, Transfer techniques Teaching Recipient: Patient Teaching Methods: Demonstration, Discussion Response to Teaching: Verbalize Understanding, Return Demonstration OT Short Term Goals Short Term Goals Time Frame: Jun 04, 2018 Eating(FIM): 5 Grooming(FIM): 5 Bathing(FIM): 4 Upper Body Dressing(FIM): 5 Lower Body Dressing(FIM): 4 Toileting(FIM): 4 Transfers (B,C,W/C) (FIM): 4 Toilet/Commode Transfer(FIM): 4 Shower Transfer(FIM): 4 Additional Short Term Goals: 1-Demonstrate ADL Tasks, 2-Verbalize Understanding , 3-ImproveStrength/Bushra 1=Demonstrate adherence to instructed precautions during ADL tasks. 2=Patient will verbalize/demonstrate understanding of assistive devices/ modifications for ADL. 3=Patient will improve strength/tolerance for activity to enable patient to perform ADL's. OT College Dean Goals College Dean Goals Time Frame: Jun 11, 2018 Eating (FIM): 6 Eating (QC): 6 Groomin Oral Hygiene (QC): 6 Bathing(FIM): 5 Shower/Bathe Self (QC): 5 Upper Body Dressing(FIM): 6 Upper Body Dressing (QC): 6 Lower Body Dressing(FIM): 6 Lower Body Dressing (QC): 6 On/Off Footwear (QC): 6 Toileting(FIM): 6 Toileting Hygiene (QC): 6 Transfers (B,C,W/C) (FIM): 6 Toilet/Commode Transfer(FIM): 6 Toilet/Commode Transfer (QC): 6 Shower Transfer(FIM): 5 Additional Goals: 1-Demonstrate ADL Tasks, 2-Verbalize Understanding, 3- ImproveStrength/Bushra 1=Demonstrate adherence to instructed precautions during ADL tasks. 2=Patient will verbalize/demonstrate understanding of assistive devices/ modifications for ADL. 3=Patient will improve strength/tolerance for activity to enable patient to perform ADL's. OT Education/Plan Problem List/Assessment Assessment: Decreased Activ Tolerance, Impaired I ADL's, Impaired Self-Care Skills Discharge Recommendations Plan/Recommendations: Continue POC Therapy D/C Recommendations: Home w/ Family Support, Occupational Therapy Home Care Treatment Plan/Plan of Care Treatment,Training & Education: Yes Patient would benefit from OT for education, treatment and training to promote independence in ADL's, mobility, safety and/or upper extremity function for ADL' s. Plan of Care: ADL Retraining, Functional Mobility, Group Exercise/Act as Ind, UE Funct Exercise/Act Treatment Duration: Jun 11, 2018 Frequency: At least 5 of 7 days/Wk (IRF) Estimated Hrs Per Day: 1.5 hours per day Agreement: Yes Rehab Potential: Fair Time/GCodes Start Time: 08:30 Stop Time: 10:00 Total Time Billed (hr/min): 90 Billed Treatment Time 1, ADL x 60minutes, FA x 30minutes MARTINA IQBAL OT Jun 03, 2018 13:22
--- NOTE | 2018-06-03 13:30 | NUR ---
Pt dizzy and faint while working /c PT. When pt seated BP 80/50, HR 105. after 5 minutes BP 101/61, HR 108. Dr. Garg notified and states to document only, no need to report further orthostatics.
--- NOTE | 2018-06-03 13:43 | Physical Therapy Daily Note ---
PT Daily Note-Current Subjective Pt. states she will need to go to [facility] "[place]". Pain Location: No Pain Reported Mental Status Patient Orientation: Person, Place, Time, Situation Transfers Therapy Code Descriptions/Definitions Functional [place] Measure: 0=Not Assessed/NA 4=Minimal Assistance 1=Total Assistance 5=Supervision or Setup 2=Maximal Assistance 6=Modified [place] 3=Moderate Assistance 7=Complete [place] Therapy Quality Codes: 6 Independent with activity with or without an assistive device 5 Patient requires set up or clean up by helper. Patient completes activity by themselves 4 Supervision or touching assist (CGA). [place] provide cues , steadying assist 3 The helper provides less than half the effort to complete the activity 2 The helper provides more than half the effort to complete the activity 1 Dependent. The helper does all the effort to complete an activity 7 Patient refused to complete or attempt activity 9 The patient did not perform the activity before the current illness or injury 88 Not attempted due to Medical conditions or safety concerns Transfers (B, C, W/C) (FIM): 3 Scootin Rollin Supine to/from Sit: 3 Sit to/from Stand: 3 Bed to/from Chair: 3 pt. needs HOB up for sup to sit TRF and mod assist all TRFs. Pt. required mod to max at one point as she became hypotensive in standing and required more assist for safety to sitting Weight Bearing Right Lower Extremity: Right Full Weight Bearing Left Lower Extremity: Left Full Weight Bearing Gait Training Gait Assistive Device: FWW pt. took 6-7 steps to BSC from bed with mod assist as pt. was upset and anxious because she felt her bowels were moving abruptly. Pt. let go of FWW and moved unsafely grabbing for the BSC Treatments pt. with large loose stool in her pants and panties required max assist to doff both, clean in sit and stand as well as mary clean brief and slacks. In stance for cleaning and pulling pants up pt. utilizing FWW pt. became very lightheaded and eventually stated she felt she was going to pass out. Pt. was sat back down on BSC with pants not completely up and nursing notified. In sitting pts. BP was 80/50, HR 105 ,attempted but unable to obtain a BP reading in stance. Nursing then assisted with donning pants and TRFing pt. to bed mod assist of 2. Pt. in bed positioned flat with rodriguez at hand and nursing continuing assessment of pt. Assessment Current Status: Fair Progress poor tolerance for upright, pt. near syncope? PT Short Term Goals Short Term Goals Time Frame: Jun 04, 2018 Transfers (B,C,W/C) (FIM): 4 Gait (FIM): 2 Gait Distance Comment: 50' Gait Level of Assist: 4 Gait Assistive Device: FWW PT Drip Molder Goals Drip Molder Goals PT Drip Molder Goals Time Frame: Jun 18, 2018 Transfers (B,C,W/C) (FIM): 5 Sit to Lying (QC): 6 Lying-Sitting on Side/Bed(QC): 6 Sit to Stand (QC): 4 Rollin Roll Left to Right (QC): 6 Chair/Jhs-yv-Ebykg Xfer(QC): 4 Car Transfer (QC): 4 Gait (FIM): 5 Distance: 150' Walk 10 feet (QC): 4 Walk 10ft-Uneven Surface(QC): 4 Walk 50ft with 2 Turns (QC): 4 Walk 150 ft (QC): 4 Gait Level of Assist: 5 Gait Assistive Device: FWW Stairs (FIM): 2 # of Steps: 4 1 Step (curb) (QC): 4 4 Steps (QC): 4 Stairs Level Of Assist: 4 PT Plan Treatment/Plan Treatment Plan: Continue Plan of Care Treatment Plan: Bed Mobility, Concurrent Therapy, Education, Functional Activity [place], Functional Strength, Group Therapy, Gait, Safety, Therapeutic Exercise, Transfers Treatment Duration: Jun 04, 2018 Frequency: At least 5 of 7 days/Wk (IRF) Estimated Hrs Per Day: 1.5 hours per day Patient and/or Family Agrees t: Yes Safety Risks/Education Patient Education: Gait Training, Transfer Techniques, Correct Positioning, Disease Process, Safety Issues Teaching Recipient: Patient Teaching Methods: Demonstration, Discussion Response to Teaching: Verbalize Understanding, Unable to Comprehend, Reinforcement Needed Time/GCodes Time In: 1300 Time Out: 1340 Total Billed Treatment Time: 40 Total Billed Treatment 1,FA40m G Codes Necessary: ZARA Kenyon IUSS ACOUSTIC ANALYST Jun 03, 2018 13:43
--- NOTE | 2018-06-03 17:00 | NUR ---
Straight cath 450cc.
--- NOTE | 2018-06-03 17:45 | NUR ---
Significant Orthostatic BP changes. See orthostatic BP intervention.
[2018-06-03] MEDS: ESTRADIOL VAGINAL CREAM 42.5 GM (ESTRACE) VG SCH (20:26)
[2018-06-04] VITALS (8 sets, daily range): BP systolic 86–160; BP diastolic 53–83
[2018-06-04] MEDS: inSUlin ASPART (NovoLOG) 1 UNIT/0.01 ML (CHARGE PER UNIT) SC SCH ×4 (05:26→20:06)
[2018-06-04] MEDS: HYDROcodone/APAP 5 MG/325 MG (LORTAB) TAB PO PRN ×2 (05:28→22:50)
[2018-06-04] MEDS: glipiZIDE 5 MG (GLUCOTROL) TAB PO SCH (05:28)
[2018-06-04] MEDS: LIPASE/AMYLASE/PROTEASE (PANCRELIPASE) 5,000 UNITS CAP PO SCH ×4 (05:28→20:05)
[2018-06-04] MEDS: metFORMIN XR 500 MG (GLUCOPHAGE XR) TAB PO SCH ×2 (05:29→16:15)
[2018-06-04] MEDS: KCL 10 MEQ TAB (MICRO K) PO SCH ×2 (05:29→16:15)
[2018-06-04] MEDS: VITAMIN D3 1,000 UNITS (CHOLECALCIFEROL) TABLET PO SCH (05:29)
[2018-06-04] MEDS: DROXIDOPA 200 MG PO SCH ×3 (05:30→17:00)
[2018-06-04] MEDS: DOCUSATE SODIUM 100 MG (COLACE) CAP PO SCH ×2 (08:01→20:05)
[2018-06-04] MEDS: NITROFURANTOIN 100 MG (MACROBID) CAPSULE PO SCH ×2 (08:02→20:05)
[2018-06-04] MEDS: FAMOTIDINE 20 MG (PEPCID) TABLET PO SCH ×2 (08:02→20:05)
[2018-06-04] MEDS: CYCLOBENZAPRINE 10 MG (FLEXERIL) TAB PO SCH ×3 (08:02→20:05)
[2018-06-04] MEDS: MAGNESIUM OXIDE (MAG-OX)400 MG TAB PO SCH (08:02)
[2018-06-04] MEDS: MILK OF MAGNESIA 400 MG/5 ML 30 ML UDC PO SCH (08:03)
[2018-06-04] MEDS: GABAPENTIN 100 MG (NEURONTIN) CAP PO SCH ×3 (08:03→20:05)
[2018-06-04] MEDS: POLYETHYLENE GLYCOL 17 GM (MIRALAX) PACK PO SCH ×2 (08:03→20:03)
[2018-06-04] MEDS: COLESTIPOL 1 GM (COLESTID) TAB PO SCH ×2 (08:05→20:06)
[2018-06-04] MEDS: FLUTICASONE NASAL SPRAY (FLONASE) 16 GM BTL NS SCH (08:06)
--- NOTE | 2018-06-04 08:38 | PM&R Progress Note ---
Subjective HPI/CC On Admission Date Seen by Provider: Jun 04, 2018 Time Seen by Provider: 08:30 CC: s/p Lumbar spine surgery with debility HPI: This is a 68-year-old white female clinic patient of Dr. Wynne who presents to the inpatient rehabilitation facility following an uncomplicated lumbar spine surgery due to lumbar stenosis from Dr. Conley on 05/23/18. She has been essentially bedridden for 7 months due to the severity of her back pain until she was able to undergo the surgery by Dr. Conley. At this current time pain is controlled and she is looking forward to getting up therapy and beginning the intensive program. She was contemplating going to skilled facility but daughter encouraged her to try inpatient rehabilitation for a more aggressive journey with therapy to recover. She does have history of postural orthostasis tachycardia syndrome and has been allowed to have permissive hypertension in order to minimize the orthostasis so she's been given her pressor therapy on an as needed basis. Her bowels are moving and she feels like she is going to have another bowel movement this evening. She has a midline back incision dressing will be changed every other day with gauze and Hypofixate and she is not a candidate for chemical DVT prophylaxis only SCDs due to high risk for spinal hematoma and compression of the spinal cord. She usually sees neurology at for the orthostasis and urology for recurrent UTIs. Subjective/Events-last exam Pt did have a BM Orthostasis continues to be a problem Overall pain is improved and taking pain medication Overall feels better but orthostasis could cause a delay in recovery as originally thought Review of Systems General: Fatigue Musculoskeletal: back pain Neurological: Weakness Objective Exam Vital Signs Vital Signs Date Time Temp Pulse Resp B/P (MAP) Pulse Ox O2 Delivery O2 Flow Rate FiO2 06/04/18 16:58 99.2 89 18 153/74 (100) 96 Room Air Capillary Refill : General Appearance: No Apparent Distress, WD/WN, Chronically ill, Thin, Other ( improved today Sunday) HEENT: PERRL/EOMI, Normal ENT Inspection, Pharynx Normal, Moist Mucous Membranes Neck: Full Range of Motion, Normal Inspection, Non Tender, Supple Respiratory: Chest Non Tender, Lungs Clear, Normal Breath Sounds, No Accessory Muscle Use, No Respiratory Distress Cardiovascular: Regular Rate, Rhythm, No Edema, No Gallop, No JVD, No Murmur Gastrointestinal: Normal Bowel Sounds, No Organomegaly, No Pulsatile Mass, Non Tender, Soft Rectal: Normal Exam, Normal Rectal Tone Genital/Rectal: Normal Genital Exam, Normal Rectal Exam, Normal Rectal Tone, Normal Vaginal Exam Back: Decreased Range of Motion, Vertebral Tenderness, Other (dressing intact but hematoma without erythema or pain at palpation left of incision) Extremity: Normal Capillary Refill, Normal Inspection, Normal Range of Motion, Non Tender, No Calf Tenderness, No Pedal Edema Neurologic/Psychiatric: Alert, Oriented x3, No Motor/Sensory Deficits, Depressed Affect Skin: Normal Color, Warm/Dry Lymphatic: No Adenopathy Results/Procedures Lab Patient resulted labs reviewed. Assessment/Plan Assessment and Plan Assess & Plan/Chief Complaint Assessment: Status post uncomplicated lumbar spine surgery on 05/23/18 Seven-month history of bedridden status due to severe back pain with radiculopathy Diabetes mellitus POTS Vitamin B-12 deficiency Postop anemia Recurrent UTIs Acute UTI placed on Macrobid 05/30/18 x 7 days Chronic headache Neurogenic bladder requiring straight catheters to empty bladder s/p crackles on lung exam resolved now s/p hematoma near incision now resolved Plan: Maintain on home meds Permissive hypertension due to severity of her orthostasis when standing up Pain control Bowel regimen with Miralax Intensive therapies Fall risk Straight in/out caths prn IS Macrobid for UTI treatment Monitor resolved hematoma area (1) Lumbar stenosis (2) POTS (postural orthostatic tachycardia syndrome) (3) History of UTI (4) Anemia due to acute blood loss (5) Weakness (6) Neuropathy (7) GERD (gastroesophageal reflux disease) (8) Diabetes mellitus (9) B12 deficiency (10) Headache (11) Neurogenic bladder (12) Hematoma following procedure (13) Acute UTI Clinical Quality Measures DVT/VTE Risk/Contraindication: Risk Factor Score Per Nursin RFS Level Per Nursing on Admit: 2=Moderate MALIKA VÁZQUEZ DO Jun 04, 2018 08:38
--- NOTE | 2018-06-04 08:44 | NUR ---
Dr. Garg to floor and aware of significant orthostatic blood pressure changes. Supine- 160/79, P 85 and sitting- 86/53, P 85.
--- NOTE | 2018-06-04 09:48 | Occupational Ther Daily Note ---
OT Current Status-Daily Note Subjective Pt in bed, agrees to treatment. Pt states she did not sleep well last night. Reports 4/10 back pain. Mental Status/Objective Therapy Code Descriptions/Definitions Functional [place] Measure: 0=Not Assessed/NA 4=Minimal Assistance 1=Total Assistance 5=Supervision or Setup 2=Maximal Assistance 6=Modified [place] 3=Moderate Assistance 7=Complete [place] ADL-Treatment Pt supine to sit with minimal assistance for trunk. Pt declined to attempt shower today, but would like sponge bath. Sit to stand and transfer to chair with minimal assistance using FWW. Sponge bath completed seated in chair. Doff gown without assist. Pt completed upper body bathing with set up. Applied deodorant with set up. Donned pullover shirt with set up. Pt completed lower body bathing with SBA. Pt moves slowly and requires increased time for bathing and dressing tasks. Occasional rest breaks taken. Pt donned underwear and pants with minimal assistance to complete pant hike. Doff/don socks with SBA. Pt combed hair with set up. Pt performed bilateral UE activity to increase activity tolerance and strength. Pt performed AROM exercises x15 reps with dowel elver focusing on shoulder, elbow, and wrist movements. Pt requests to return to bed after session. Transfer chair to bed with CGA. Sit to supine with SBA. Meal tray arrives. Pt able to open containers and feed self without assist. Pt with all needs met after session. Therapy Code Descriptions/Definitions Functional [place] Measure: 0=Not Assessed/NA 4=Minimal Assistance 1=Total Assistance 5=Supervision or Setup 2=Maximal Assistance 6=Modified [place] 3=Moderate Assistance 7=Complete [place] Therapy Quality Codes: 6 Independent with activity with or without an assistive device 5 Patient requires set up or clean up by helper. Patient completes activity by themselves 4 Supervision or touching assist (CGA). [place] provide cues , steadying assist 3 The helper provides less than half the effort to complete the activity 2 The helper provides more than half the effort to complete the activity 1 Dependent. The helper does all the effort to complete an activity 7 Patient refused to complete or attempt activity 9 The patient did not perform the activity before the current illness or injury 88 Not attempted due to Medical conditions or safety concerns Eating (FIM): 6 Eating (QC): 6 Grooming (FIM): 5 Bathing (FIM): 5 Shower/Bathe Self (QC): 4 Upper Body (FIM): 5 Upper Body Dressing (QC): 4 Lower Body Dressing (FIM): 4 Lower Body Dressing (QC): 3 OT Short Term Goals Short Term Goals Time Frame: Jun 04, 2018 Eating(FIM): 5 Grooming(FIM): 5 Bathing(FIM): 4 Upper Body Dressing(FIM): 5 Lower Body Dressing(FIM): 4 Toileting(FIM): 4 Transfers (B,C,W/C) (FIM): 4 Toilet/Commode Transfer(FIM): 4 Shower Transfer(FIM): 4 Additional Short Term Goals: 1-Demonstrate ADL Tasks, 2-Verbalize Understanding , 3-ImproveStrength/Bushra 1=Demonstrate adherence to instructed precautions during ADL tasks. 2=Patient will verbalize/demonstrate understanding of assistive devices/ modifications for ADL. 3=Patient will improve strength/tolerance for activity to enable patient to perform ADL's. OT Emergency Response Officer Goals Emergency Response Officer Goals Time Frame: Jun 11, 2018 Eating (FIM): 6 Eating (QC): 6 Groomin Oral Hygiene (QC): 6 Bathing(FIM): 5 Shower/Bathe Self (QC): 5 Upper Body Dressing(FIM): 6 Upper Body Dressing (QC): 6 Lower Body Dressing(FIM): 6 Lower Body Dressing (QC): 6 On/Off Footwear (QC): 6 Toileting(FIM): 6 Toileting Hygiene (QC): 6 Transfers (B,C,W/C) (FIM): 6 Toilet/Commode Transfer(FIM): 6 Toilet/Commode Transfer (QC): 6 Shower Transfer(FIM): 5 Additional Goals: 1-Demonstrate ADL Tasks, 2-Verbalize Understanding, 3- ImproveStrength/Bushra 1=Demonstrate adherence to instructed precautions during ADL tasks. 2=Patient will verbalize/demonstrate understanding of assistive devices/ modifications for ADL. 3=Patient will improve strength/tolerance for activity to enable patient to perform ADL's. OT Education/Plan Discharge Recommendations Plan/Recommendations: Continue POC Treatment Plan/Plan of Care Patient would benefit from OT for education, treatment and training to promote independence in ADL's, mobility, safety and/or upper extremity function for ADL' s. Plan of Care: ADL Retraining, Functional Mobility, Group Exercise/Act as Ind, UE Funct Exercise/Act Treatment Duration: Jun 11, 2018 Frequency: At least 5 of 7 days/Wk (IRF) Estimated Hrs Per Day: 1.5 hours per day Agreement: Yes Rehab Potential: Fair Time/GCodes Start Time: 08:05 Stop Time: 09:35 Total Time Billed (hr/min): 90 Billed Treatment Time 1 visit, ADLx5(70minutes), EX(10minutes) ADALGISA LIANG OT Jun 04, 2018 09:48
[2018-06-04] MEDS: FLUDROCORTISONE 0.1 MG (FLORINEF) TAB PO SCH (10:00)
[2018-06-04] MEDS: MIDODRINE 5 MG PO SCH ×3 (10:00→20:07)
--- NOTE | 2018-06-04 10:22 | NUR ---
PT EATING FAIR, 63% MEALS. FAMILY BRINGING IN SOME FOOD. WEIGHT STABLE. CONT TO MONITOR. ENCOURAGE PO INTAKE.
--- NOTE | 2018-06-04 11:45 | NUR ---
GAS LEAK TESTER met with patient to inquire about questions or concerns that can be discussed in team conference meeting tomorrow. Patient expresses no concerns and is impressed with therapy progress. RN voiced concerns about orthostatic hypotension; however, patient has managed this for the last year. Patient states spouse can provide assistance as needed and family reside near for additional support. Patient is hopeful to discharge on Sunday, GAS LEAK TESTER will discuss this with team tomorrow.
--- NOTE | 2018-06-04 12:05 | Physical Therapy Daily Note ---
PT Daily Note-Current Subjective Pt sitting up in bed upon arrival. Pt agrees to PT. Pain Numeric Pain Scale: 5-Moderate Pain Location: Incisional Location Body Site: Back Pain Description: Ache Comment: Pt reports 2/10 at rest but increases with exercise. Mental Status Patient Orientation: Person, Place, Situation Transfers Therapy Code Descriptions/Definitions Functional [place] Measure: 0=Not Assessed/NA 4=Minimal Assistance 1=Total Assistance 5=Supervision or Setup 2=Maximal Assistance 6=Modified [place] 3=Moderate Assistance 7=Complete [place] Therapy Quality Codes: 6 Independent with activity with or without an assistive device 5 Patient requires set up or clean up by helper. Patient completes activity by themselves 4 Supervision or touching assist ([facility]). [place] provide cues , steadying assist 3 The helper provides less than half the effort to complete the activity 2 The helper provides more than half the effort to complete the activity 1 Dependent. The helper does all the effort to complete an activity 7 Patient refused to complete or attempt activity 9 The patient did not perform the activity before the current illness or injury 88 Not attempted due to Medical conditions or safety concerns Scootin Rollin Supine to/from Sit: 5 Sit to/from Stand: 4 Sit to Lying (QC): 5 Sit to Stand (QC): 4 Weight Bearing Right Lower Extremity: Right Full Weight Bearing Left Lower Extremity: Left Full Weight Bearing Gait Training Does the Patient Walk?: Yes Distance (FIM): 3=150 ft Distance: 150' Walk 10 feet (QC): 5 Walk 50 ft with 2 Turns(QC): 5 Walk 150 ft (QC): 5 Gait Level of Assist: 5 Gait Persons Needed: 1 Gait Assistive Device: FWW Wheelchair Training Does the Pt Use a Wheelchair?: No Exercises Seated Therapy Exercises: Ankle pumps, Long arc quads, Hip flexion, Kicking activity, Hip abd/add Seated Reps: 15 NuStep Minutes: 10 NuStep Workload: 5 Treatments Pt transfers at [facility] as well as ambulates in hallway using FWW at [facility]. Pt uses NuStep for 10m at 5 followed res break then Seated Ex in chair. Pt then ambulates back to room to rest in bed. COMMERCIAL SPECIALIST assists pt with positioning. Pt has all needs met at end of tx. Assessment Current Status: Good Progress Pt continues to push self to improve and go home. PT Short Term Goals Short Term Goals Time Frame: Jun 04, 2018 Transfers (B,C,W/C) (FIM): 4 Gait (FIM): 2 Gait Distance Comment: 50' Gait Level of Assist: 4 Gait Assistive Device: FWW PT Knitting Inspector Goals Knitting Inspector Goals PT Knitting Inspector Goals Time Frame: Jun 18, 2018 Transfers (B,C,W/C) (FIM): 5 Sit to Lying (QC): 6 Lying-Sitting on Side/Bed(QC): 6 Sit to Stand (QC): 4 Rollin Roll Left to Right (QC): 6 Chair/Ugd-ei-Lxfyp Xfer(QC): 4 Car Transfer (QC): 4 Gait (FIM): 5 Distance: 150' Walk 10 feet (QC): 4 Walk 10ft-Uneven Surface(QC): 4 Walk 50ft with 2 Turns (QC): 4 Walk 150 ft (QC): 4 Gait Level of Assist: 5 Gait Assistive Device: FWW Stairs (FIM): 2 # of Steps: 4 1 Step (curb) (QC): 4 4 Steps (QC): 4 Stairs Level Of Assist: 4 PT Plan Problem List Problem List: Activity Tolerance, Functional Strength, Safety Treatment/Plan Treatment Plan: Continue Plan of Care Treatment Plan: Bed Mobility, Concurrent Therapy, Education, Functional Activity [place], Functional Strength, Group Therapy, Gait, Safety, Therapeutic Exercise, Transfers Treatment Duration: Jun 04, 2018 Frequency: At least 5 of 7 days/Wk (IRF) Estimated Hrs Per Day: 1.5 hours per day Patient and/or Family Agrees t: Yes Safety Risks/Education Patient Education: Gait Training, Transfer Techniques, Correct Positioning, Safety Issues Teaching Recipient: Patient Teaching Methods: Discussion Response to Teaching: Verbalize Understanding Time/GCodes Time In: 1015 Time Out: 1115 Total Billed Treatment Time: 60 Total Billed Treatment 1, GT (15m), FA (15m) & EX x2 (30m) G Codes Necessary: MUMTAZ Odom COMMERCIAL SPECIALIST Jun 04, 2018 12:04
--- NOTE | 2018-06-04 15:04 | NUR ---
Spoke with Alfonzo from Dr. Conley's office. Informed of slight redness down incision line and continued small amount of odorless, serosanguineous drainage. Continue to monitor. [place] will be removed at F/U appointment on 06/11/18.
--- NOTE | 2018-06-04 15:28 | Physical Therapy Daily Note ---
PT Daily Note-Current Subjective Pt sitting up in bed upon arrival. Pt agrees to PT. Pain Numeric Pain Scale: 3 Location: Incisional Location Body Site: Back Pain Description: Ache, Burning Mental Status Patient Orientation: Person, Place, Situation Transfers Therapy Code Descriptions/Definitions Functional [place] Measure: 0=Not Assessed/NA 4=Minimal Assistance 1=Total Assistance 5=Supervision or Setup 2=Maximal Assistance 6=Modified [place] 3=Moderate Assistance 7=Complete [place] Therapy Quality Codes: 6 Independent with activity with or without an assistive device 5 Patient requires set up or clean up by helper. Patient completes activity by themselves 4 Supervision or touching assist (CGA). [place] provide cues , steadying assist 3 The helper provides less than half the effort to complete the activity 2 The helper provides more than half the effort to complete the activity 1 Dependent. The helper does all the effort to complete an activity 7 Patient refused to complete or attempt activity 9 The patient did not perform the activity before the current illness or injury 88 Not attempted due to Medical conditions or safety concerns Scootin Rollin Supine to/from Sit: 4 Sit to/from Stand: 5 Sit to Lying (QC): 4 Sit to Stand (QC): 5 Weight Bearing Right Lower Extremity: Right Full Weight Bearing Left Lower Extremity: Left Full Weight Bearing Exercises Supine Ex: Ankle pumps, Quad Set, Glut sets, Heel Slides, Straight leg raise, Hip abd/add Supine Reps: 20 Treatments Pt completes Supine Ex in bed then needs to use BSC for BM. BALL POINT SPLITTER assists with doffing/donning underware & pants. Pt transfers back to bed to rest. Pt has all needs met including new sheets since water was spilled on previous set. Assessment Current Status: Good Progress Pt reports feeling light headed when barring down for BM. BALL POINT SPLITTER stays close since pt has history with Orthostatic Hypotension already. PT Short Term Goals Short Term Goals Time Frame: Jun 04, 2018 Transfers (B,C,W/C) (FIM): 4 Gait (FIM): 2 Gait Distance Comment: 50' Gait Level of Assist: 4 Gait Assistive Device: FWW PT Clutch Rebuilder Goals Clutch Rebuilder Goals PT Clutch Rebuilder Goals Time Frame: Jun 18, 2018 Transfers (B,C,W/C) (FIM): 5 Sit to Lying (QC): 6 Lying-Sitting on Side/Bed(QC): 6 Sit to Stand (QC): 4 Rollin Roll Left to Right (QC): 6 Chair/Ddb-fx-Mjpzu Xfer(QC): 4 Car Transfer (QC): 4 Gait (FIM): 5 Distance: 150' Walk 10 feet (QC): 4 Walk 10ft-Uneven Surface(QC): 4 Walk 50ft with 2 Turns (QC): 4 Walk 150 ft (QC): 4 Gait Level of Assist: 5 Gait Assistive Device: FWW Stairs (FIM): 2 # of Steps: 4 1 Step (curb) (QC): 4 4 Steps (QC): 4 Stairs Level Of Assist: 4 PT Plan Problem List Problem List: Activity Tolerance, Functional Strength, Safety, Balance Treatment/Plan Treatment Plan: Continue Plan of Care Treatment Plan: Bed Mobility, Concurrent Therapy, Education, Functional Activity [place], Functional Strength, Group Therapy, Gait, Safety, Therapeutic Exercise, Transfers Treatment Duration: Jun 04, 2018 Frequency: At least 5 of 7 days/Wk (IRF) Estimated Hrs Per Day: 1.5 hours per day Patient and/or Family Agrees t: Yes Safety Risks/Education Patient Education: Gait Training, Transfer Techniques, Correct Positioning, Safety Issues Teaching Recipient: Patient Teaching Methods: Discussion Response to Teaching: Verbalize Understanding Time/GCodes Time In: 1400 Time Out: 1440 Total Billed Treatment Time: 40 Total Billed Treatment 1, EX x2 (25m) & FA (15m) G Codes Necessary: MUMTAZ Odom BALL POINT SPLITTER Jun 04, 2018 15:28
[2018-06-05 05:43] VITALS: BP 107/65
[2018-06-05] MEDS: inSUlin ASPART (NovoLOG) 1 UNIT/0.01 ML (CHARGE PER UNIT) SC SCH ×4 (05:45→22:02)
[2018-06-05] MEDS: KCL 10 MEQ TAB (MICRO K) PO SCH ×2 (05:48→17:05)
[2018-06-05] MEDS: DROXIDOPA 200 MG PO SCH ×3 (05:48→17:07)
[2018-06-05] MEDS: VITAMIN D3 1,000 UNITS (CHOLECALCIFEROL) TABLET PO SCH (05:48)
[2018-06-05] MEDS: LIPASE/AMYLASE/PROTEASE (PANCRELIPASE) 5,000 UNITS CAP PO SCH ×4 (05:48→21:16)
[2018-06-05] MEDS: metFORMIN XR 500 MG (GLUCOPHAGE XR) TAB PO SCH ×2 (05:48→17:06)
[2018-06-05] MEDS: glipiZIDE 5 MG (GLUCOTROL) TAB PO SCH (05:48)
[2018-06-05] MEDS: HYDROcodone/APAP 5 MG/325 MG (LORTAB) TAB PO PRN ×2 (05:50→20:34)
[2018-06-05] MEDS: MAGNESIUM OXIDE (MAG-OX)400 MG TAB PO SCH (08:18)
[2018-06-05] MEDS: FAMOTIDINE 20 MG (PEPCID) TABLET PO SCH ×2 (08:18→21:15)
[2018-06-05] MEDS: MILK OF MAGNESIA 400 MG/5 ML 30 ML UDC PO SCH (08:18)
[2018-06-05] MEDS: CYCLOBENZAPRINE 10 MG (FLEXERIL) TAB PO SCH ×3 (08:18→21:15)
[2018-06-05] MEDS: FLUDROCORTISONE 0.1 MG (FLORINEF) TAB PO SCH (08:18)
[2018-06-05] MEDS: GABAPENTIN 100 MG (NEURONTIN) CAP PO SCH ×3 (08:18→21:16)
[2018-06-05] MEDS: NITROFURANTOIN 100 MG (MACROBID) CAPSULE PO SCH ×2 (08:18→21:16)
[2018-06-05] MEDS: DOCUSATE SODIUM 100 MG (COLACE) CAP PO SCH ×2 (08:18→21:16)
[2018-06-05] MEDS: FLUTICASONE NASAL SPRAY (FLONASE) 16 GM BTL NS SCH (08:19)
[2018-06-05] MEDS: MIDODRINE 5 MG PO SCH ×3 (08:20→21:18)
[2018-06-05] MEDS: POLYETHYLENE GLYCOL 17 GM (MIRALAX) PACK PO SCH ×2 (08:23→21:16)
--- NOTE | 2018-06-05 08:35 | PM&R Progress Note ---
Subjective HPI/CC On Admission Date Seen by Provider: Jun 05, 2018 Time Seen by Provider: 08:45 CC: s/p Lumbar spine surgery with debility HPI: This is a 68-year-old white female clinic patient of Dr. Wynne who presents to the inpatient rehabilitation facility following an uncomplicated lumbar spine surgery due to lumbar stenosis from Dr. Conley on 05/23/18. She has been essentially bedridden for 7 months due to the severity of her back pain until she was able to undergo the surgery by Dr. Conley. At this current time pain is controlled and she is looking forward to getting up therapy and beginning the intensive program. She was contemplating going to skilled facility but daughter encouraged her to try inpatient rehabilitation for a more aggressive journey with therapy to recover. She does have history of postural orthostasis tachycardia syndrome and has been allowed to have permissive hypertension in order to minimize the orthostasis so she's been given her pressor therapy on an as needed basis. Her bowels are moving and she feels like she is going to have another bowel movement this evening. She has a midline back incision dressing will be changed every other day with gauze and Hypofixate and she is not a candidate for chemical DVT prophylaxis only SCDs due to high risk for spinal hematoma and compression of the spinal cord. She usually sees neurology at for the orthostasis and urology for recurrent UTIs. Subjective/Events-last exam PT reports moderate dependent transfers and walking 100 feet Occupational therapy is standby assist with ADLs Orthostasis continues to be a problem. Pt had a bowel movement. Dressing changes daily but has a poor appetite. Discharge plan for 06/07/18. Patient overall doing well and has had a dramatic improvement since admit Review of Systems General: Fatigue Musculoskeletal: back pain Neurological: Weakness Objective Exam Vital Signs Vital Signs Date Time Temp Pulse Resp B/P (MAP) Pulse Ox O2 Delivery O2 Flow Rate FiO2 06/05/18 18:00 97.6 87 18 156/73 (100) 97 Room Air Capillary Refill : General Appearance: No Apparent Distress, WD/WN, Chronically ill, Thin, Other ( improved today Sunday) HEENT: PERRL/EOMI, Normal ENT Inspection, Pharynx Normal, Moist Mucous Membranes Neck: Full Range of Motion, Normal Inspection, Non Tender, Supple Respiratory: Chest Non Tender, Lungs Clear, Normal Breath Sounds, No Accessory Muscle Use, No Respiratory Distress Cardiovascular: Regular Rate, Rhythm, No Edema, No Gallop, No JVD, No Murmur Gastrointestinal: Normal Bowel Sounds, No Organomegaly, No Pulsatile Mass, Non Tender, Soft Rectal: Normal Exam, Normal Rectal Tone Genital/Rectal: Normal Genital Exam, Normal Rectal Exam, Normal Rectal Tone, Normal Vaginal Exam Back: Decreased Range of Motion, Vertebral Tenderness, Other (dressing intact but hematoma without erythema or pain at palpation left of incision) Extremity: Normal Capillary Refill, Normal Inspection, Normal Range of Motion, Non Tender, No Calf Tenderness, No Pedal Edema Neurologic/Psychiatric: Alert, Oriented x3, No Motor/Sensory Deficits, Depressed Affect Skin: Normal Color, Warm/Dry Lymphatic: No Adenopathy Results/Procedures Lab Patient resulted labs reviewed. Assessment/Plan Assessment and Plan Assess & Plan/Chief Complaint Assessment: Status post uncomplicated lumbar spine surgery on 05/23/18 Seven-month history of bedridden status due to severe back pain with radiculopathy Diabetes mellitus POTS Vitamin B-12 deficiency Postop anemia Recurrent UTIs Acute UTI placed on Macrobid 05/30/18 x 7 days Chronic headache Neurogenic bladder requiring straight catheters to empty bladder s/p crackles on lung exam resolved now s/p hematoma near incision now resolved Plan: Maintain on home meds Permissive hypertension due to severity of her orthostasis when standing up Pain control Bowel regimen with Miralax Intensive therapies Fall risk Straight in/out caths prn IS Macrobid for UTI treatment Monitor resolved hematoma area DC planned later this week (1) Lumbar stenosis (2) POTS (postural orthostatic tachycardia syndrome) (3) History of UTI (4) Anemia due to acute blood loss (5) Weakness (6) Neuropathy (7) GERD (gastroesophageal reflux disease) (8) Diabetes mellitus (9) B12 deficiency (10) Headache (11) Neurogenic bladder (12) Hematoma following procedure (13) Acute UTI Clinical Quality Measures DVT/VTE Risk/Contraindication: Risk Factor Score Per Nursin RFS Level Per Nursing on Admit: 2=Moderate MALIKA VÁZQUEZ DO Jun 05, 2018 08:35
[2018-06-05] MEDS: COLESTIPOL 1 GM (COLESTID) TAB PO SCH ×2 (09:00→21:15)
--- NOTE | 2018-06-05 10:10 | Occupational Ther Daily Note ---
OT Current Status-Daily Note Subjective Pt in bed, agrees to treatment. Pt reports 3/10 pain in back. Mental Status/Objective Therapy Code Descriptions/Definitions Functional [place] Measure: 0=Not Assessed/NA 4=Minimal Assistance 1=Total Assistance 5=Supervision or Setup 2=Maximal Assistance 6=Modified [place] 3=Moderate Assistance 7=Complete [place] ADL-Treatment Pt supine to sit with supervision and cues for technique. Sit to stand and transfer to chair with close supervision using FWW. Pt requests sponge bath this morning. Doff nightgown with SBA. Upper body bathing completed with set up. Pt able to wash lower body with SBA and cues for back precautions. Don pullover shirt with set up. Pt donned underwear and pants with SBA for balance during standing for pant hike. Uses FWW for standing balance. Dons bilateral socks with SBA. Pt requires increased time for bathing and dressing tasks. Takes rest breaks as needed. Pt combed hair with set up. Requests to remain sitting in chair after session. All needs met. Therapy Code Descriptions/Definitions Functional [place] Measure: 0=Not Assessed/NA 4=Minimal Assistance 1=Total Assistance 5=Supervision or Setup 2=Maximal Assistance 6=Modified [place] 3=Moderate Assistance 7=Complete [place] Therapy Quality Codes: 6 Independent with activity with or without an assistive device 5 Patient requires set up or clean up by helper. Patient completes activity by themselves 4 Supervision or touching assist (CGA). [place] provide cues , steadying assist 3 The helper provides less than half the effort to complete the activity 2 The helper provides more than half the effort to complete the activity 1 Dependent. The helper does all the effort to complete an activity 7 Patient refused to complete or attempt activity 9 The patient did not perform the activity before the current illness or injury 88 Not attempted due to Medical conditions or safety concerns Grooming (FIM): 5 Bathing (FIM): 5 Upper Body (FIM): 5 Upper Body Dressing (QC): 5 Lower Body Dressing (FIM): 5 Lower Body Dressing (QC): 4 Education OT Patient Education: Safety issues Teaching Recipient: Patient Teaching Methods: Discussion Response to Teaching: Verbalize Understanding OT Short Term Goals Short Term Goals Time Frame: Jun 04, 2018 Eating(FIM): 5 Grooming(FIM): 5 Bathing(FIM): 4 Upper Body Dressing(FIM): 5 Lower Body Dressing(FIM): 4 Toileting(FIM): 4 Transfers (B,C,W/C) (FIM): 4 Toilet/Commode Transfer(FIM): 4 Shower Transfer(FIM): 4 Additional Short Term Goals: 1-Demonstrate ADL Tasks, 2-Verbalize Understanding , 3-ImproveStrength/[place] 1=Demonstrate adherence to instructed precautions during ADL tasks. 2=Patient will verbalize/demonstrate understanding of assistive devices/ modifications for ADL. 3=Patient will improve strength/tolerance for activity to enable patient to perform ADL's. OT Senior Living Goals [employer] Mechanical Goals Time Frame: Jun 11, 2018 Eating (FIM): 6 Eating (QC): 6 Groomin Oral Hygiene (QC): 6 Bathing(FIM): 5 Shower/Bathe Self (QC): 5 Upper Body Dressing(FIM): 6 Upper Body Dressing (QC): 6 Lower Body Dressing(FIM): 6 Lower Body Dressing (QC): 6 On/Off Footwear (QC): 6 Toileting(FIM): 6 Toileting Hygiene (QC): 6 Transfers (B,C,W/C) (FIM): 6 Toilet/Commode Transfer(FIM): 6 Toilet/Commode Transfer (QC): 6 Shower Transfer(FIM): 5 Additional Goals: 1-Demonstrate ADL Tasks, 2-Verbalize Understanding, 3- ImproveStrength/[place] 1=Demonstrate adherence to instructed precautions during ADL tasks. 2=Patient will verbalize/demonstrate understanding of assistive devices/ modifications for ADL. 3=Patient will improve strength/tolerance for activity to enable patient to perform ADL's. OT Education/Plan Discharge Recommendations Plan/Recommendations: Continue POC Treatment Plan/Plan of Care Patient would benefit from OT for education, treatment and training to promote independence in ADL's, mobility, safety and/or upper extremity function for ADL' s. Plan of Care: ADL Retraining, Functional Mobility, Group Exercise/Act as Ind, UE Funct Exercise/Act Treatment Duration: Jun 11, 2018 Frequency: At least 5 of 7 days/Wk (IRF) Estimated Hrs Per Day: 1.5 hours per day Agreement: Yes Rehab Potential: Fair Time/GCodes Start Time: 08:15 Stop Time: 09:15 Total Time Billed (hr/min): 60 Billed Treatment Time 1 visit, ADLx4(60minutes) GARTH,ADALGISA L OT Jun 05, 2018 10:10
--- NOTE | 2018-06-05 11:23 | Physical Therapy Daily Note ---
PT Daily Note-Current Subjective Pt. agrees to Ex and gait. Pain Numeric Pain Scale: 3 Location: Medial Location Body Site: Back Pain Description: Ache Mental Status Patient Orientation: Normal For Age Transfers Therapy Code Descriptions/Definitions Functional [place] Measure: 0=Not Assessed/NA 4=Minimal Assistance 1=Total Assistance 5=Supervision or Setup 2=Maximal Assistance 6=Modified [place] 3=Moderate Assistance 7=Complete [place] Therapy Quality Codes: 6 Independent with activity with or without an assistive device 5 Patient requires set up or clean up by helper. Patient completes activity by themselves 4 Supervision or touching assist (CGA). [place] provide cues , steadying assist 3 The helper provides less than half the effort to complete the activity 2 The helper provides more than half the effort to complete the activity 1 Dependent. The helper does all the effort to complete an activity 7 Patient refused to complete or attempt activity 9 The patient did not perform the activity before the current illness or injury 88 Not attempted due to Medical conditions or safety concerns Transfers (B, C, W/C) (FIM): 6 Scootin Rollin Supine to/from Sit: 6 Sit to/from Stand: 6 Weight Bearing Right Lower Extremity: Right Full Weight Bearing Left Lower Extremity: Left Full Weight Bearing Gait Training Does the Patient Walk?: Yes Gait (FIM): 2 Distance (FIM): 6=018-48 ft (125x1,75,25) Gait Level of Assist: 4 Gait Persons Needed: 1 Gait Assistive Device: FWW Wheelchair Training Does the Pt Use a Wheelchair?: Yes Wheelchair (FIM): 5 Wheelchair Distance: 8=099-59 ft (125) Wheelchair Level of Assist: 5 Type of Wheelchair: Manual Exercises Supine Ex: Ankle pumps, Quad Set, Rolling, Glut sets, Heel Slides, Short Arc Quads, Scooting, Hip abd/add Supine Reps: 10 Seated Therapy Exercises: Ankle pumps, Sit to stand, Long arc quads, Hip flexion Seated Reps: 8 NuStep Minutes: 10 NuStep Workload: 3 Treatments toilet TRFs with min assist and mod to min assist to manage pants up down Assessment Current Status: Good Progress no difficulty with low BP today, improved funct mob PT Short Term Goals Short Term Goals Time Frame: Jun 04, 2018 Transfers (B,C,W/C) (FIM): 4 Gait (FIM): 2 Gait Distance Comment: 50' Gait Level of Assist: 4 Gait Assistive Device: FWW PT Alf Goals Alf Goals PT Alf Goals Time Frame: Jun 18, 2018 Transfers (B,C,W/C) (FIM): 5 Sit to Lying (QC): 6 Lying-Sitting on Side/Bed(QC): 6 Sit to Stand (QC): 4 Rollin Roll Left to Right (QC): 6 Chair/Pik-fi-Satjk Xfer(QC): 4 Car Transfer (QC): 4 Gait (FIM): 5 Distance: 150' Walk 10 feet (QC): 4 Walk 10ft-Uneven Surface(QC): 4 Walk 50ft with 2 Turns (QC): 4 Walk 150 ft (QC): 4 Gait Level of Assist: 5 Gait Assistive Device: FWW Stairs (FIM): 2 # of Steps: 4 1 Step (curb) (QC): 4 4 Steps (QC): 4 Stairs Level Of Assist: 4 PT Plan Treatment/Plan Treatment Plan: Continue Plan of Care Treatment Plan: Bed Mobility, Concurrent Therapy, Education, Functional Activity [place], Functional Strength, Group Therapy, Gait, Safety, Therapeutic Exercise, Transfers Treatment Duration: Jun 04, 2018 Frequency: At least 5 of 7 days/Wk (IRF) Estimated Hrs Per Day: 1.5 hours per day Patient and/or Family Agrees t: Yes Safety Risks/Education Patient Education: Gait Training, Transfer Techniques, Correct Positioning, W/ C Management, Disease Process, Safety Issues Teaching Recipient: Patient Teaching Methods: Demonstration, Discussion Response to Teaching: Verbalize Understanding, Return Demonstration, Reinforcement Needed Time/GCodes Time In: 1015 Time Out: 1115 Total Billed Treatment Time: 60 Total Billed Treatment 1,FA20m,EX15m,WC15m,GT10m G Codes Necessary: ZARA Kenyon METAL DRAWER Jun 05, 2018 11:23
--- NOTE | 2018-06-05 15:00 | NUR ---
VEHICLE FARE COLLECTOR met with patient and spouse to review team conference summary. Patient is performing all therapy activities with supervision to modified independent status. Team has recommended discharge on 215 with home health services for RN dressing changes, PT, OT. Patient spouse are agreeable to discharge plan, patient will look over Medicare approved provider list for home health as she previously utilized [facility] and this location is closed. VEHICLE FARE COLLECTOR will follow up with patient regarding home health choice.
--- NOTE | 2018-06-05 15:48 | Therapy Group Daily Note ---
Therapy Daily Group Note Patient Education Topic Other List Below Exercises Fine Motor, UE Exercise Other/Notes Pt participated in group therapy with 4 to 1 ratio. Goals of Session: Acknowledge understanding of ARU expectations, met. Acknowledge and demonstrate knowledge of benefits of handwashing, met. Complete multi-step fine motor exercise using dynamic sitting to increase v belt inspector/ pinch and core strength, met. OT/PT group consisted of introductions (name, place living, Jolley's memory) , handwashing benefits/education, fine motor/UE exercises and benefits of handwashing. Pt introduced self appropriately and actively listened to peers. Pt then demonstrated ability to complete fine motor activity and UE strengthening without difficulty. Pt was able to demonstrate understanding of effective handwashing techniques and contributed to strategies for handwashing education. Pt contributed to conversations throughout group and initiated conversations with peers. Pt will benefit from group by using handwashing techniques daily to prevent illness and increase UE strength for daily functional tasks. After group, pt ambulated back to room and sat in recliner. Call light/phone in reach. All needs met in room. Start Time: 13:00 Stop Time: 14:15 Total Billed Treatment 1, GRP MUMTAZ CAMACHO DIRECTOR DECISION SUPPORT Jun 05, 2018 15:48
[2018-06-05 18:00] VITALS: BP 156/73
--- NOTE | 2018-06-05 20:00 | NUR ---
pt straight cathed 600 cc immediate return clear yvonne color urine
[2018-06-05] MEDS: ESTRADIOL VAGINAL CREAM 42.5 GM (ESTRACE) VG SCH (21:18)
--- NOTE | 2018-06-06 01:00 | NUR ---
pt straight cathed immediate return 1000cc clear yvonne color urine
[2018-06-06] MEDS: inSUlin ASPART (NovoLOG) 1 UNIT/0.01 ML (CHARGE PER UNIT) SC SCH ×4 (05:20→21:44)
[2018-06-06 05:54] VITALS: BP 161/81
[2018-06-06] MEDS: DROXIDOPA 200 MG PO SCH ×3 (06:30→18:00)
[2018-06-06] MEDS: VITAMIN D3 1,000 UNITS (CHOLECALCIFEROL) TABLET PO SCH (06:30)
[2018-06-06] MEDS: metFORMIN XR 500 MG (GLUCOPHAGE XR) TAB PO SCH ×2 (06:30→16:39)
[2018-06-06] MEDS: LIPASE/AMYLASE/PROTEASE (PANCRELIPASE) 5,000 UNITS CAP PO SCH ×4 (06:30→20:38)
[2018-06-06] MEDS: glipiZIDE 5 MG (GLUCOTROL) TAB PO SCH (06:30)
[2018-06-06] MEDS: KCL 10 MEQ TAB (MICRO K) PO SCH ×2 (06:30→16:39)
--- NOTE | 2018-06-06 06:39 | NUR ---
pt straight cathed 200cc immediate return clear yvnone color urine
[2018-06-06] MEDS: MIDODRINE 5 MG PO SCH ×3 (08:45→20:44)
[2018-06-06] MEDS: NITROFURANTOIN 100 MG (MACROBID) CAPSULE PO SCH (08:45)
[2018-06-06] MEDS: GABAPENTIN 100 MG (NEURONTIN) CAP PO SCH ×3 (08:45→20:38)
[2018-06-06] MEDS: FLUDROCORTISONE 0.1 MG (FLORINEF) TAB PO SCH (08:45)
[2018-06-06] MEDS: DOCUSATE SODIUM 100 MG (COLACE) CAP PO SCH ×2 (08:45→21:55)
[2018-06-06] MEDS: COLESTIPOL 1 GM (COLESTID) TAB PO SCH ×2 (08:46→20:38)
[2018-06-06] MEDS: CYCLOBENZAPRINE 10 MG (FLEXERIL) TAB PO SCH ×3 (08:46→20:39)
[2018-06-06] MEDS: MAGNESIUM OXIDE (MAG-OX)400 MG TAB PO SCH (08:46)
[2018-06-06] MEDS: FAMOTIDINE 20 MG (PEPCID) TABLET PO SCH ×2 (08:46→20:39)
[2018-06-06] MEDS: HYDROcodone/APAP 5 MG/325 MG (LORTAB) TAB PO PRN ×3 (08:46→20:39)
--- NOTE | 2018-06-06 08:49 | PM&R Progress Note ---
Subjective HPI/CC On Admission Date Seen by Provider: Jun 06, 2018 Time Seen by Provider: 09:00 CC: s/p Lumbar spine surgery with debility HPI: This is a 68-year-old white female clinic patient of Dr. Wynne who presents to the inpatient rehabilitation facility following an uncomplicated lumbar spine surgery due to lumbar stenosis from Dr. Conley on 05/23/18. She has been essentially bedridden for 7 months due to the severity of her back pain until she was able to undergo the surgery by Dr. Conley. At this current time pain is controlled and she is looking forward to getting up therapy and beginning the intensive program. She was contemplating going to skilled facility but daughter encouraged her to try inpatient rehabilitation for a more aggressive journey with therapy to recover. She does have history of postural orthostasis tachycardia syndrome and has been allowed to have permissive hypertension in order to minimize the orthostasis so she's been given her pressor therapy on an as needed basis. Her bowels are moving and she feels like she is going to have another bowel movement this evening. She has a midline back incision dressing will be changed every other day with gauze and Hypofixate and she is not a candidate for chemical DVT prophylaxis only SCDs due to high risk for spinal hematoma and compression of the spinal cord. She usually sees neurology at for the orthostasis and urology for recurrent UTIs. Subjective/Events-last exam Feels better today Discharge plan for 06/07/18. Patient overall doing well and has had a dramatic improvement since admit Pain meds will be Rx at DC Dressing changes are going well Checked meds and labs Review of Systems General: Fatigue Musculoskeletal: back pain Objective Exam Vital Signs Vital Signs Date Time Temp Pulse Resp B/P (MAP) Pulse Ox O2 Delivery O2 Flow Rate FiO2 06/06/18 09:00 Room Air 06/06/18 05:54 97.6 81 18 161/81 (107) 97 Capillary Refill : General Appearance: No Apparent Distress, WD/WN, Chronically ill, Thin, Other ( improved today Sunday) HEENT: PERRL/EOMI, Normal ENT Inspection, Pharynx Normal, Moist Mucous Membranes Neck: Full Range of Motion, Normal Inspection, Non Tender, Supple Respiratory: Chest Non Tender, Lungs Clear, Normal Breath Sounds, No Accessory Muscle Use, No Respiratory Distress Cardiovascular: Regular Rate, Rhythm, No Edema, No Gallop, No JVD, No Murmur Gastrointestinal: Normal Bowel Sounds, No Organomegaly, No Pulsatile Mass, Non Tender, Soft Rectal: Normal Exam, Normal Rectal Tone Genital/Rectal: Normal Genital Exam, Normal Rectal Exam, Normal Rectal Tone, Normal Vaginal Exam Back: Decreased Range of Motion, Vertebral Tenderness, Other (dressing intact but hematoma without erythema or pain at palpation left of incision) Extremity: Normal Capillary Refill, Normal Inspection, Normal Range of Motion, Non Tender, No Calf Tenderness, No Pedal Edema Neurologic/Psychiatric: Alert, Oriented x3, No Motor/Sensory Deficits, Depressed Affect Skin: Normal Color, Warm/Dry Lymphatic: No Adenopathy Results/Procedures Lab Patient resulted labs reviewed. Assessment/Plan Assessment and Plan Assess & Plan/Chief Complaint Assessment: Status post uncomplicated lumbar spine surgery on 05/23/18 Seven-month history of bedridden status due to severe back pain with radiculopathy Diabetes mellitus POTS Vitamin B-12 deficiency Postop anemia Recurrent UTIs Acute UTI placed on Macrobid 05/30/18 x 7 days Chronic headache Neurogenic bladder requiring straight catheters to empty bladder s/p crackles on lung exam resolved now s/p hematoma near incision now resolved Plan: Maintain on home meds Permissive hypertension due to severity of her orthostasis when standing up Pain control Bowel regimen with Miralax Intensive therapies Fall risk Straight in/out caths prn IS Macrobid for UTI treatment Monitor resolved hematoma area DC planned 06/07/18 (1) Lumbar stenosis (2) POTS (postural orthostatic tachycardia syndrome) (3) History of UTI (4) Anemia due to acute blood loss (5) Weakness (6) Neuropathy (7) GERD (gastroesophageal reflux disease) (8) Diabetes mellitus (9) B12 deficiency (10) Headache (11) Neurogenic bladder (12) Hematoma following procedure (13) Acute UTI Clinical Quality Measures DVT/VTE Risk/Contraindication: Risk Factor Score Per Nursin RFS Level Per Nursing on Admit: 2=Moderate MALIKA VÁZQUEZ DO Jun 06, 2018 08:49
[2018-06-06] MEDS: FLUTICASONE NASAL SPRAY (FLONASE) 16 GM BTL NS SCH (08:50)
--- NOTE | 2018-06-06 08:55 | Physical Therapy Daily Note ---
PT Daily Note-Current Subjective Patient in bed pre tx, agrees to PT, has pain of 7/10. Nurse notified and she got pain meds. Patient needs dressed upper and lower and she does so with mod I. Appearance Patient in recliner post tx with nurse call, phone, tray, nurse in room. Mental Status Patient Orientation: Normal For Age Transfers Therapy Code Descriptions/Definitions Functional [place] Measure: 0=Not Assessed/NA 4=Minimal Assistance 1=Total Assistance 5=Supervision or Setup 2=Maximal Assistance 6=Modified Y[place] 3=Moderate Assistance 7=Complete Y[place] Therapy Quality Codes: 6 Independent with activity with or without an assistive device 5 Patient requires set up or clean up by helper. Patient completes activity by themselves 4 Supervision or touching assist (CGA). [place] provide cues , steadying assist 3 The helper provides less than half the effort to complete the activity 2 The helper provides more than half the effort to complete the activity 1 Dependent. The helper does all the effort to complete an activity 7 Patient refused to complete or attempt activity 9 The patient did not perform the activity before the current illness or injury 88 Not attempted due to Medical conditions or safety concerns Transfers (B, C, W/C) (FIM): 6 Scootin Rollin Roll Left to Right (QC): 6 Supine to/from Sit: 6 Sit to/from Stand: 6 Sit to Lying (QC): 6 Sit to Stand (QC): 6 Chair/Nhr-st-Aghec Xfer(QC): 6 Bed to/from Chair: 6 Car Transfer (QC): 6 Patient performs bed mobility with mod I, supine <-> sit with mod I, sit <-> stand with mod I, transfers with mod I, car transfer with mod I. Weight Bearing Right Lower Extremity: Right Full Weight Bearing Left Lower Extremity: Left Full Weight Bearing Gait Training Gait (FIM): 5 Distance: 200', 120'x2 Walk 10 feet (QC): 4 Walk 50 ft with 2 Turns(QC): 4 Walk 150 ft (QC): 4 Walking 10ft/uneven surface-QC: 4 Gait Level of Assist: 5 Gait Persons Needed: 1 Gait Assistive Device: FWW Patient can ambulate 200' with a rolling walker with SBA (including 50' with at least 2 turns of 90 degrees and 10' over an uneven surface. Ambulation is slow and antalgic and she tends to lean heavily on the walker. Wheelchair Training Does the Pt Use a Wheelchair?: No Stair Training Stair Training: Handrails/: 2 handrails Stairs (FIM): 2 #of Steps: 4 1 Step (curb) (QC): 4 4 Steps (QC): 4 Stairs: Pattern: Step to Level of Assist: 4 Patient can go up and down 4 steps using 2 handrails with CGA. Patient needs cues for foot placement. Exercises NuStep Minutes: 15 NuStep Workload: 5 Treatments bed mobility and transfers, ambulation, functional strengthening, stair training Assessment Current Status: Fair Progress improved general mobility, needs cues for foot placement when doing steps PT Short Term Goals Short Term Goals Time Frame: Jun 04, 2018 Transfers (B,C,W/C) (FIM): 4 Gait (FIM): 2 Gait Distance Comment: 50' Gait Level of Assist: 4 Gait Assistive Device: FWW PT Pull Out Operator Goals Pull Out Operator Goals PT Pull Out Operator Goals Time Frame: Jun 18, 2018 Transfers (B,C,W/C) (FIM): 5 Sit to Lying (QC): 6 Lying-Sitting on Side/Bed(QC): 6 Sit to Stand (QC): 4 Rollin Roll Left to Right (QC): 6 Chair/Ryr-qm-Wdzcc Xfer(QC): 4 Car Transfer (QC): 4 Gait (FIM): 5 Distance: 150' Walk 10 feet (QC): 4 Walk 10ft-Uneven Surface(QC): 4 Walk 50ft with 2 Turns (QC): 4 Walk 150 ft (QC): 4 Gait Level of Assist: 5 Gait Assistive Device: FWW Stairs (FIM): 2 # of Steps: 4 1 Step (curb) (QC): 4 4 Steps (QC): 4 Stairs Level Of Assist: 4 PT Plan Problem List Problem List: Activity Tolerance, Functional Strength, Safety, Balance, Gait, Transfer Treatment/Plan Treatment Plan: Continue Plan of Care Treatment Plan: Bed Mobility, Concurrent Therapy, Education, Functional Activity Bush[place], Functional Strength, Group Therapy, Gait, Safety, Therapeutic Exercise, Transfers Treatment Duration: Jun 04, 2018 Frequency: At least 5 of 7 days/Wk (IRF) Estimated Hrs Per Day: 1.5 hours per day Patient and/or Family Agrees t: Yes Safety Risks/Education Patient Education: Gait Training, Transfer Techniques, Steps, Correct Positioning, Safety Issues Teaching Recipient: Patient Teaching Methods: Demonstration, Discussion Response to Teaching: Reinforcement Needed Time/GCodes Time In: 0800 Time Out: 0900 Total Billed Treatment Time: 60 Total Billed Treatment 1 visit EX 15' FA 15' GT 30' ANGELIC TRAN PT Jun 06, 2018 08:55
[2018-06-06] MEDS: POLYETHYLENE GLYCOL 17 GM (MIRALAX) PACK PO SCH ×2 (09:00→21:56)
[2018-06-06] MEDS: MILK OF MAGNESIA 400 MG/5 ML 30 ML UDC PO SCH (09:00)
--- NOTE | 2018-06-06 09:42 | D/C HH Face to Face Order ---
D/C Face to Face Orders Instructions for Patient Via [facility], Patient Instructions/FollowUp: Dr Wynne in 1 week Physician to follow Patient: Dr Daniele Wynne Discharge Diet for Home: Regular Diet, Tube Feeding (as dietary recs) Patient Problems: Debility Back pain from surgery POTS Goals for Patient: Independent ADL's Patient Data-Allergies,Ht & Wt Patient Allergies: Coded Allergies: amoxicillin (Verified Allergy, Unknown, 05/27/18) clavulanic acid (Verified Allergy, Unknown, 05/27/18) moxifloxacin (Verified Allergy, Unknown, 05/27/18) sulfamethoxazole (Verified Allergy, Unknown, 05/27/18) trimethoprim (Verified Allergy, Unknown, 05/27/18) Height (Feet): 5 Height (Inches): 2.00 Weight (Pounds): 144 Weight (Ounces): 0.9 Home Health Need/Face to Face Date of Face to Face: Jun 06, 2018 Clinical Findings: Generalized weakness and fatigue, Muscle weakness, Pain with ambulation, Unsteady gait I have seen Pt [id number]: Yes Discharged To: Home Diagnosis/Conditions: Debility Back pain from surgery POTS Patient is Homebound due to: Onofre fall risk due to instabilty, Muscle weakness , Pain w/ambulation Homebound Status Due to the above stated illness, injury or surgical procedure (medical condition or diagnosis) and associated clinical findings, the patient is homebound because of his/her inability to leave home except with aid of a supportive device and/or person AND leaving the home requires a considerable and taxing effort or is medically contraindicated. Pt req the following assistanc: Aid of another person, Walker Home Health Nursing Orders Home Health Services Order: Nursing Services, Lens Polisher-Evaluate & Treat, Physical Therapy-Evaluate & Treat Certify Stmt I certify that this patient is under my care and that I, a nurse practitioner or a physician; a customer care assistant working with me, had a face to face encounter that - meets the physician face to face encounter requirements with this patient as dated. MALIKA VÁZQUEZ DO Jun 06, 2018 09:42
--- NOTE | 2018-06-06 15:32 | Occupational Ther Daily Note ---
OT Current Status-Daily Note Subjective Pt. states that she is having more pain in her back today. States that she is having 8/10 back pain. Nursing has given pain medication. Appearance Pt. in bed. Agrees to work with OT. Mental Status/Objective Patient Orientation: Person, Place, Time, Situation Therapy Code Descriptions/Definitions Functional [place] Measure: 0=Not Assessed/NA 4=Minimal Assistance 1=Total Assistance 5=Supervision or Setup 2=Maximal Assistance 6=Modified [place] 3=Moderate Assistance 7=Complete [place] ADL-Treatment Therapy Code Descriptions/Definitions Functional [place] Measure: 0=Not Assessed/NA 4=Minimal Assistance 1=Total Assistance 5=Supervision or Setup 2=Maximal Assistance 6=Modified [place] 3=Moderate Assistance 7=Complete [place] Therapy Quality Codes: 6 Independent with activity with or without an assistive device 5 Patient requires set up or clean up by helper. Patient completes activity by themselves 4 Supervision or touching assist (CGA). [place] provide cues , steadying assist 3 The helper provides less than half the effort to complete the activity 2 The helper provides more than half the effort to complete the activity 1 Dependent. The helper does all the effort to complete an activity 7 Patient refused to complete or attempt activity 9 The patient did not perform the activity before the current illness or injury 88 Not attempted due to Medical conditions or safety concerns Eating (FIM): 6 Eating (QC): 6 Grooming (FIM): 6 Oral Hygiene (QC): 6 Bathing (FIM): 5 (SBA in shower.) Shower/Bathe Self (QC): 4 Upper Body (FIM): 6 Upper Body Dressing (QC): 6 Lower Body Dressing (FIM): 6 Lower Body Dressing (QC): 6 On/Off Footwear (QC): 6 Toileting (FIM): 6 Toileting Hygiene (QC): 6 Transfers (B, C, W/C) (FIM): 6 Toilet/Commode Transfer (FIM): 6 Toilet Transfer (QC): 6 Shower Transfer(FIM): 5 Other Treatment Pt. does agree to shower this date. OT checks with nursing regarding back dressing. Pt. able to complete ADLs with Mod I using walker. All needs met back in bed after ADL tasks. Education OT Patient Education: Correct positioning, Modified ADL techniques, Progress toward Goal/Update tx plan, Purpose of tx/functional activities, Reviewed precautions, Rehab process, Transfer techniques Teaching Recipient: Patient Teaching Methods: Demonstration, Discussion Response to Teaching: Verbalize Understanding, Return Demonstration OT Short Term Goals Short Term Goals Time Frame: Jun 04, 2018 Eating(FIM): 5 Grooming(FIM): 5 Bathing(FIM): 4 Upper Body Dressing(FIM): 5 Lower Body Dressing(FIM): 4 Toileting(FIM): 4 Transfers (B,C,W/C) (FIM): 4 Toilet/Commode Transfer(FIM): 4 Shower Transfer(FIM): 4 Additional Short Term Goals: 1-Demonstrate ADL Tasks, 2-Verbalize Understanding , 3-ImproveStrength/Bushra 1=Demonstrate adherence to instructed precautions during ADL tasks. 2=Patient will verbalize/demonstrate understanding of assistive devices/ modifications for ADL. 3=Patient will improve strength/tolerance for activity to enable patient to perform ADL's. OT Long-Term Goals Sleep Tech Goals Time Frame: Jun 11, 2018 Eating (FIM): 6 Eating (QC): 6 Groomin Oral Hygiene (QC): 6 Bathing(FIM): 5 Shower/Bathe Self (QC): 5 Upper Body Dressing(FIM): 6 Upper Body Dressing (QC): 6 Lower Body Dressing(FIM): 6 Lower Body Dressing (QC): 6 On/Off Footwear (QC): 6 Toileting(FIM): 6 Toileting Hygiene (QC): 6 Transfers (B,C,W/C) (FIM): 6 Toilet/Commode Transfer(FIM): 6 Toilet/Commode Transfer (QC): 6 Shower Transfer(FIM): 5 Additional Goals: 1-Demonstrate ADL Tasks, 2-Verbalize Understanding, 3- ImproveStrength/Bushra 1=Demonstrate adherence to instructed precautions during ADL tasks. 2=Patient will verbalize/demonstrate understanding of assistive devices/ modifications for ADL. 3=Patient will improve strength/tolerance for activity to enable patient to perform ADL's. OT Education/Plan Problem List/Assessment Assessment: Decreased Activ Tolerance, Impaired I ADL's Discharge Recommendations Plan/Recommendations: Continue POC Therapy D/C Recommendations: Home w/ Family Support, Occupational Therapy Home Care Treatment Plan/Plan of Care Treatment,Training & Education: Yes Patient would benefit from OT for education, treatment and training to promote independence in ADL's, mobility, safety and/or upper extremity function for ADL' s. Plan of Care: ADL Retraining, Functional Mobility, Group Exercise/Act as Ind, UE Funct Exercise/Act Treatment Duration: Jun 11, 2018 Frequency: At least 5 of 7 days/Wk (IRF) Estimated Hrs Per Day: 1.5 hours per day Agreement: Yes Rehab Potential: Good Time/GCodes Start Time: 10:00 Stop Time: 11:00 Total Time Billed (hr/min): 60 Billed Treatment Time 1, ADL x 4 MARTINA IQBAL OT Jun 06, 2018 15:32
--- NOTE | 2018-06-06 15:38 | Physical Therapy Daily Note ---
PT Daily Note-Current Subjective Discussed DC to home tomorrow. Encouraged them to have back up help at home if the weather is bad. Discussed car transfers truck vs sedan. She is c/o LBP after doing increased activity and ex today. Agreed to amb, steps. Transfers Therapy Code Descriptions/Definitions Functional Sanders Measure: 0=Not Assessed/NA 4=Minimal Assistance 1=Total Assistance 5=Supervision or Setup 2=Maximal Assistance 6=Modified [place] 3=Moderate Assistance 7=Complete [place] Therapy Quality Codes: 6 Independent with activity with or without an assistive device 5 Patient requires set up or clean up by helper. Patient completes activity by themselves 4 Supervision or touching assist (CGA). [place] provide cues , steadying assist 3 The helper provides less than half the effort to complete the activity 2 The helper provides more than half the effort to complete the activity 1 Dependent. The helper does all the effort to complete an activity 7 Patient refused to complete or attempt activity 9 The patient did not perform the activity before the current illness or injury 88 Not attempted due to Medical conditions or safety concerns Weight Bearing Right Lower Extremity: Right Full Weight Bearing Left Lower Extremity: Left Full Weight Bearing Gait Training Lowered FWW 1 in, cued her to extend hips more and be aware of posture. Amb with FWW to gym and back wit cade rest break due to back discomfort. Amb up down 4 steps with richard handrails and SBA, one step at a time. Flexed at hips and back unless cued. Assessment Current Status: Good Progress Carlos is able to manage household distances with FWW. is very supportive and he will be able to provide assist as needed for ADLs. Recommend [facility] PT to progress her mobility, improve posture and manage pain, PT Short Term Goals Short Term Goals Time Frame: Jun 04, 2018 Transfers (B,C,W/C) (FIM): 4 Gait (FIM): 2 Gait Distance Comment: 50' Gait Level of Assist: 4 Gait Assistive Device: FWW PT Lobster Catcher Goals Lobster Catcher Goals PT Shelter Goals Time Frame: Jun 18, 2018 Transfers (B,C,W/C) (FIM): 5 Sit to Lying (QC): 6 Lying-Sitting on Side/Bed(QC): 6 Sit to Stand (QC): 4 Rollin Roll Left to Right (QC): 6 Chair/Byy-uv-Bphfg Xfer(QC): 4 Car Transfer (QC): 4 Gait (FIM): 5 Distance: 150' Walk 10 feet (QC): 4 Walk 10ft-Uneven Surface(QC): 4 Walk 50ft with 2 Turns (QC): 4 Walk 150 ft (QC): 4 Gait Level of Assist: 5 Gait Assistive Device: FWW Stairs (FIM): 2 # of Steps: 4 1 Step (curb) (QC): 4 4 Steps (QC): 4 Stairs Level Of Assist: 4 PT Plan Treatment/Plan Treatment Plan: Continue Plan of Care Treatment Plan: Bed Mobility, Concurrent Therapy, Education, Functional Activity Bushra, Functional Strength, Group Therapy, Gait, Safety, Therapeutic Exercise, Transfers Treatment Duration: Jun 04, 2018 Frequency: At least 5 of 7 days/Wk (IRF) Estimated Hrs Per Day: 1.5 hours per day Patient and/or Family Agrees t: Yes Time/GCodes Time In: 200 Time Out: 230 Total Billed Treatment Time: 30 Total Billed Treatment 1, Gt x 2 ANGÉLICA HAQUE PT Jun 06, 2018 15:38
--- NOTE | 2018-06-06 15:43 | Occupational Ther Daily Note ---
OT Current Status-Daily Note Subjective No pain reported. Appearance Pt. in bed. Agrees to work with therapy. Mental Status/Objective Patient Orientation: Person, Place, Time, Situation Therapy Code Descriptions/Definitions Functional [place] Measure: 0=Not Assessed/NA 4=Minimal Assistance 1=Total Assistance 5=Supervision or Setup 2=Maximal Assistance 6=Modified [place] 3=Moderate Assistance 7=Complete [place] ADL-Treatment Therapy Code Descriptions/Definitions Functional [place] Measure: 0=Not Assessed/NA 4=Minimal Assistance 1=Total Assistance 5=Supervision or Setup 2=Maximal Assistance 6=Modified [place] 3=Moderate Assistance 7=Complete [place] Therapy Quality Codes: 6 Independent with activity with or without an assistive device 5 Patient requires set up or clean up by helper. Patient completes activity by themselves 4 Supervision or touching assist (CGA). [place] provide cues , steadying assist 3 The helper provides less than half the effort to complete the activity 2 The helper provides more than half the effort to complete the activity 1 Dependent. The helper does all the effort to complete an activity 7 Patient refused to complete or attempt activity 9 The patient did not perform the activity before the current illness or injury 88 Not attempted due to Medical conditions or safety concerns Transfers (B, C, W/C) (FIM): 6 Other Treatment Pt. agreeable to treatment. Transferred using walker and ambulated to therapy gym with Mod I. Completed UE task with nut/bolts. Worked on overall endurance and shoulder strength with lifting arms. Pt. fatigued easily with this task. Ambulated back to room after rest break. All needs met in room. Education OT Patient Education: Correct positioning, Exercise program, Modified ADL techniques, Progress toward Goal/Update tx plan, Purpose of tx/functional activities, Reviewed precautions, Rehab process, Transfer techniques Teaching Recipient: Patient Teaching Methods: Demonstration, Discussion Response to Teaching: Verbalize Understanding, Return Demonstration OT Short Term Goals Short Term Goals Time Frame: Jun 04, 2018 Eating(FIM): 5 Grooming(FIM): 5 Bathing(FIM): 4 Upper Body Dressing(FIM): 5 Lower Body Dressing(FIM): 4 Toileting(FIM): 4 Transfers (B,C,W/C) (FIM): 4 Toilet/Commode Transfer(FIM): 4 Shower Transfer(FIM): 4 Additional Short Term Goals: 1-Demonstrate ADL Tasks, 2-Verbalize Understanding , 3-ImproveStrength/Bushra 1=Demonstrate adherence to instructed precautions during ADL tasks. 2=Patient will verbalize/demonstrate understanding of assistive devices/ modifications for ADL. 3=Patient will improve strength/tolerance for activity to enable patient to perform ADL's. OT Rotary Rig Engine Operator Goals Prison Goals Time Frame: Jun 11, 2018 Eating (FIM): 6 Eating (QC): 6 Groomin Oral Hygiene (QC): 6 Bathing(FIM): 5 Shower/Bathe Self (QC): 5 Upper Body Dressing(FIM): 6 Upper Body Dressing (QC): 6 Lower Body Dressing(FIM): 6 Lower Body Dressing (QC): 6 On/Off Footwear (QC): 6 Toileting(FIM): 6 Toileting Hygiene (QC): 6 Transfers (B,C,W/C) (FIM): 6 Toilet/Commode Transfer(FIM): 6 Toilet/Commode Transfer (QC): 6 Shower Transfer(FIM): 5 Additional Goals: 1-Demonstrate ADL Tasks, 2-Verbalize Understanding, 3- ImproveStrength/Bushra 1=Demonstrate adherence to instructed precautions during ADL tasks. 2=Patient will verbalize/demonstrate understanding of assistive devices/ modifications for ADL. 3=Patient will improve strength/tolerance for activity to enable patient to perform ADL's. OT Education/Plan Problem List/Assessment Assessment: Decreased Activ Tolerance Discharge Recommendations Plan/Recommendations: Continue POC Therapy D/C Recommendations: Home w/ Family Support, Occupational Therapy Home Care Treatment Plan/Plan of Care Treatment,Training & Education: Yes Patient would benefit from OT for education, treatment and training to promote independence in ADL's, mobility, safety and/or upper extremity function for ADL' s. Plan of Care: ADL Retraining, Functional Mobility, Group Exercise/Act as Ind, UE Funct Exercise/Act Treatment Duration: Jun 11, 2018 Frequency: At least 5 of 7 days/Wk (IRF) Estimated Hrs Per Day: 1.5 hours per day Agreement: Yes Rehab Potential: Good Time/GCodes Start Time: 13:00 Stop Time: 13:30 Total Time Billed (hr/min): 30 Billed Treatment Time 1, FA x 2 MARTINA IQBAL OT Jun 06, 2018 15:43
[2018-06-06 17:57] VITALS: BP 152/82
[2018-06-06 20:45] VITALS: BP 132/63
--- NOTE | 2018-06-06 21:22 | NUR ---
PATTERN DUPLICATOR met with patient to review IMM and patient choice letter for home health services. [facility] per information received, home health provider remains open and providing care for patients. PATTERN DUPLICATOR faxed referral for PT OT and RN services. Patient is eager to return home tomorrow and expresses no further concerns. Please see discharge summary for further information
[2018-06-07 06:00] VITALS: BP 119/76
[2018-06-07] MEDS: LIPASE/AMYLASE/PROTEASE (PANCRELIPASE) 5,000 UNITS CAP PO SCH (06:42)
[2018-06-07] MEDS: metFORMIN XR 500 MG (GLUCOPHAGE XR) TAB PO SCH (06:42)
[2018-06-07] MEDS: inSUlin ASPART (NovoLOG) 1 UNIT/0.01 ML (CHARGE PER UNIT) SC SCH (06:42)
[2018-06-07] MEDS: glipiZIDE 5 MG (GLUCOTROL) TAB PO SCH (06:42)
[2018-06-07] MEDS: KCL 10 MEQ TAB (MICRO K) PO SCH (06:42)
[2018-06-07] MEDS: VITAMIN D3 1,000 UNITS (CHOLECALCIFEROL) TABLET PO SCH (06:42)
[2018-06-07] MEDS: DROXIDOPA 200 MG PO SCH (06:43)
[2018-06-07 08:08] VITALS: BP 121/70
[2018-06-07] MEDS: MIDODRINE 5 MG PO SCH (08:10)
[2018-06-07] MEDS: GABAPENTIN 100 MG (NEURONTIN) CAP PO SCH (08:10)
[2018-06-07] MEDS: MAGNESIUM OXIDE (MAG-OX)400 MG TAB PO SCH (08:11)
[2018-06-07] MEDS: FAMOTIDINE 20 MG (PEPCID) TABLET PO SCH (08:11)
[2018-06-07] MEDS: CYCLOBENZAPRINE 10 MG (FLEXERIL) TAB PO SCH (08:11)
[2018-06-07] MEDS: FLUDROCORTISONE 0.1 MG (FLORINEF) TAB PO SCH (08:11)
[2018-06-07] MEDS: DOCUSATE SODIUM 100 MG (COLACE) CAP PO SCH (08:11)
[2018-06-07] MEDS: COLESTIPOL 1 GM (COLESTID) TAB PO SCH (08:12)
[2018-06-07] MEDS: POLYETHYLENE GLYCOL 17 GM (MIRALAX) PACK PO SCH (09:00)
[2018-06-07] MEDS: MILK OF MAGNESIA 400 MG/5 ML 30 ML UDC PO SCH (09:00)
[2018-06-07] MEDS: FLUTICASONE NASAL SPRAY (FLONASE) 16 GM BTL NS SCH (09:00)
[2018-06-07] MEDS ORDERED: TRAM50TA2 PO (09:45)
[2018-06-07] MEDS ORDERED: ONDA4TAB11 PO (09:45)
[2018-06-07] MEDS ORDERED: ACHD5005 PO (09:45)
[2018-06-07] MEDS ORDERED: CYCL10TA9 PO (09:45)
--- NOTE | 2018-06-07 09:47 | Discharge Summary ---
Diagnosis/Chief Complaint Date of Admission May 27, 2018 at 17:40 Date of Discharge Discharge Date: Jun 07, 2018 Discharge Diagnosis Assessment: Status post uncomplicated lumbar spine surgery on 05/23/18 Seven-month history of bedridden status due to severe back pain with radiculopathy Diabetes mellitus POTS Vitamin B-12 deficiency Postop anemia Recurrent UTIs Acute UTI placed on Macrobid 05/30/18 x 7 days Chronic headache Neurogenic bladder requiring straight catheters to empty bladder s/p crackles on lung exam resolved now s/p hematoma near incision now resolved Plan: Maintain on home meds Permissive hypertension due to severity of her orthostasis when standing up Pain control Bowel regimen with Miralax Intensive therapies Fall risk Straight in/out caths prn IS Macrobid for UTI treatment Monitor resolved hematoma area DC planned 06/07/18 Discharge Summary Discharge Physical Examination Allergies: Coded Allergies: amoxicillin (Verified Allergy, Unknown, 05/27/18) clavulanic acid (Verified Allergy, Unknown, 05/27/18) moxifloxacin (Verified Allergy, Unknown, 05/27/18) sulfamethoxazole (Verified Allergy, Unknown, 05/27/18) trimethoprim (Verified Allergy, Unknown, 05/27/18) Vitals & I&Os Vital Signs Date Time Temp Pulse Resp B/P (MAP) Pulse Ox O2 Delivery O2 Flow Rate FiO2 06/07/18 09:00 Room Air 06/07/18 08:08 87 121/70 (87) 06/07/18 06:00 97.1 16 96 Hospital Course Was the Problem List Reviewed?: Yes Hospital course: patient had an uneventful 2 week hospital course in IRF following an extensive lumbar spine surgery by Dr Conley at [facility] after 7 months of nearly bedridden state from severe lumbar radiculopathy. POTS remained the challenge during therapy but she actually improved tremendously during close monitoring of hypotension and timing of pressor meds. Bowel function regained normalcy and pain was maintained in good control on PO meds. Blood sugar remained stable. Overall she had few complications during hospital stay except for UTI that was adequately treated with Macrobid per sensitivity panel. In/Out catheters were required as she does at home and Urology in manages that on a regular basis. Labs (last 24 hrs) Laboratory Tests 05/27/18 17:40: Lab Scanned Report Referred Lab Report 05/27/18 22:01: Glucometer 274H 05/28/18 05:48: White Blood Count 7.1, Red Blood Count 3.24L, Hemoglobin 10.1L, Hematocrit 31L, Mean Corpuscular Volume 96, Mean Corpuscular Hemoglobin 31, Mean Corpuscular Hemoglobin Concent 32, Red Cell Distribution Width 13.1, Platelet Count 373, Mean Platelet Volume 8.8, Neutrophils (%) (Auto) 60, Lymphocytes (%) (Auto) 26, Monocytes (%) (Auto) 12, Eosinophils (%) (Auto) 2, Basophils (%) (Auto) 0, Neutrophils # (Auto) 4.3, Lymphocytes # (Auto) 1.9, Monocytes # (Auto) 0.8, Eosinophils # (Auto) 0.1, Basophils # (Auto) 0.0, Sodium Level 137, Potassium Level 3.9, Chloride Level 95L, Carbon Dioxide Level 29, Anion Gap 13, Blood Urea Nitrogen 12, Creatinine 0.84, Estimat Glomerular Filtration Rate > 60, BUN/ Creatinine Ratio 14, Glucose Level 230H, Calcium Level 9.4, Corrected Calcium 10.0, Total Bilirubin 0.3, Aspartate Amino Transf (AST/SGOT) 23, Alanine Aminotransferase (ALT/SGPT) 17, Alkaline Phosphatase 85, Total Protein 6.8, Albumin 3.3 05/28/18 05:59: Glucometer 228H 05/28/18 11:46: Glucometer 188H 05/28/18 15:51: Glucometer 145H 05/28/18 20:30: Glucometer 185H 05/29/18 06:10: Glucometer 136H 05/29/18 11:24: Glucometer 207H 05/29/18 16:44: Glucometer 83 05/29/18 20:14: Glucometer 145H 05/30/18 05:15: Glucometer 152H 05/30/18 11:35: Glucometer 159H 05/30/18 17:56: Glucometer 131H 05/30/18 20:12: Glucometer 182H 05/31/18 05:40: Glucometer 111H 05/31/18 11:48: Glucometer 144H 05/31/18 15:52: Glucometer 114H 05/31/18 20:47: Glucometer 128H 06/01/18 04:26: Glucometer 88 06/01/18 12:42: Glucometer 67L 06/01/18 13:58: Glucometer 104 06/01/18 17:41: Glucometer 126H 06/01/18 21:53: Glucometer 135H 06/02/18 04:23: Glucometer 125H 06/02/18 17:38: Glucometer 136H 06/02/18 21:53: Glucometer 153H 06/03/18 05:40: White Blood Count 7.5, Red Blood Count 3.37L, Hemoglobin 10.6L, Hematocrit 33L, Mean Corpuscular Volume 97, Mean Corpuscular Hemoglobin 31, Mean Corpuscular Hemoglobin Concent 32, Red Cell Distribution Width 13.2, Platelet Count 538H, Mean Platelet Volume 8.5, Neutrophils (%) (Auto) 59, Lymphocytes (%) (Auto) 28, Monocytes (%) (Auto) 11, Eosinophils (%) (Auto) 2, Basophils (%) (Auto) 1, Neutrophils # (Auto) 4.4, Lymphocytes # (Auto) 2.1, Monocytes # (Auto) 0.9, Eosinophils # (Auto) 0.1, Basophils # (Auto) 0.1, Sodium Level 137, Potassium Level 4.7, Chloride Level 96L, Carbon Dioxide Level 29, Anion Gap 12, Blood Urea Nitrogen 15, Creatinine 0.86, Estimat Glomerular Filtration Rate > 60, BUN/ Creatinine Ratio 17, Glucose Level 86, Calcium Level 9.8, Corrected Calcium 10.0 , Total Bilirubin 0.2, Aspartate Amino Transf (AST/SGOT) 20, Alanine Aminotransferase (ALT/SGPT) 11, Alkaline Phosphatase 79, Total Protein 7.4, Albumin 3.7 06/03/18 06:10: Glucometer 84 06/03/18 11:22: Glucometer 116H 06/03/18 16:33: Glucometer 104 06/03/18 20:15: Glucometer 191H 06/04/18 05:25: Glucometer 110 06/04/18 11:20: Glucometer 154H 06/04/18 16:13: Glucometer 140H 06/04/18 20:00: Glucometer 215H 06/05/18 05:40: Glucometer 163H 06/05/18 11:50: Glucometer 132H 06/05/18 17:12: Glucometer 113H 06/05/18 21:54: Glucometer 339H 06/06/18 04:56: Glucometer 125H 06/06/18 11:35: Glucometer 137H 06/06/18 16:33: Glucometer 141H 06/06/18 21:15: Glucometer 221H 06/07/18 06:10: Glucometer 110 Microbiology 05/28/18 Urine Culture - Final, Complete Escherichia coli Pending Labs Microbiology Date/Time Source Procedure Growth Status 05/28/18 17:47 Urine Straight Cath, In/Out Urine Culture - Final Escherichia coli Complete Laboratory Tests 05/27/18 17:40: Lab Scanned Report Referred Lab Report 05/27/18 22:01: Glucometer 274 05/28/18 05:48: White Blood Count 7.1, Red Blood Count 3.24, Hemoglobin 10.1, Hematocrit 31, Mean Corpuscular Volume 96, Mean Corpuscular Hemoglobin 31, Mean Corpuscular Hemoglobin Concent 32, Red Cell Distribution Width 13.1, Platelet Count 373, Mean Platelet Volume 8.8, Neutrophils (%) (Auto) 60, Lymphocytes (%) (Auto) 26, Monocytes (%) (Auto) 12, Eosinophils (%) (Auto) 2, Basophils (%) (Auto) 0, Neutrophils # (Auto) 4.3, Lymphocytes # (Auto) 1.9, Monocytes # (Auto) 0.8, Eosinophils # (Auto) 0.1, Basophils # (Auto) 0.0, Sodium Level 137, Potassium Level 3.9, Chloride Level 95, Carbon Dioxide Level 29, Anion Gap 13, Blood Urea Nitrogen 12, Creatinine 0.84, Estimat Glomerular Filtration Rate > 60, BUN/ Creatinine Ratio 14, Glucose Level 230, Calcium Level 9.4, Corrected Calcium 10.0, Total Bilirubin 0.3, Aspartate Amino Transf (AST/SGOT) 23, Alanine Aminotransferase (ALT/SGPT) 17, Alkaline Phosphatase 85, Total Protein 6.8, Albumin 3.3 05/28/18 05:59: Glucometer 228 05/28/18 11:46: Glucometer 188 05/28/18 15:51: Glucometer 145 05/28/18 20:30: Glucometer 185 05/29/18 06:10: Glucometer 136 05/29/18 11:24: Glucometer 207 05/29/18 16:44: Glucometer 83 05/29/18 20:14: Glucometer 145 05/30/18 05:15: Glucometer 152 05/30/18 11:35: Glucometer 159 05/30/18 17:56: Glucometer 131 05/30/18 20:12: Glucometer 182 05/31/18 05:40: Glucometer 111 05/31/18 11:48: Glucometer 144 05/31/18 15:52: Glucometer 114 05/31/18 20:47: Glucometer 128 06/01/18 04:26: Glucometer 88 06/01/18 12:42: Glucometer 67 06/01/18 13:58: Glucometer 104 06/01/18 17:41: Glucometer 126 06/01/18 21:53: Glucometer 135 06/02/18 04:23: Glucometer 125 06/02/18 17:38: Glucometer 136 06/02/18 21:53: Glucometer 153 06/03/18 05:40: White Blood Count 7.5, Red Blood Count 3.37, Hemoglobin 10.6, Hematocrit 33, Mean Corpuscular Volume 97, Mean Corpuscular Hemoglobin 31, Mean Corpuscular Hemoglobin Concent 32, Red Cell Distribution Width 13.2, Platelet Count 538, Mean Platelet Volume 8.5, Neutrophils (%) (Auto) 59, Lymphocytes (%) (Auto) 28, Monocytes (%) (Auto) 11, Eosinophils (%) (Auto) 2, Basophils (%) (Auto) 1, Neutrophils # (Auto) 4.4, Lymphocytes # (Auto) 2.1, Monocytes # (Auto) 0.9, Eosinophils # (Auto) 0.1, Basophils # (Auto) 0.1, Sodium Level 137, Potassium Level 4.7, Chloride Level 96, Carbon Dioxide Level 29, Anion Gap 12, Blood Urea Nitrogen 15, Creatinine 0.86, Estimat Glomerular Filtration Rate > 60, BUN/ Creatinine Ratio 17, Glucose Level 86, Calcium Level 9.8, Corrected Calcium 10.0 , Total Bilirubin 0.2, Aspartate Amino Transf (AST/SGOT) 20, Alanine Aminotransferase (ALT/SGPT) 11, Alkaline Phosphatase 79, Total Protein 7.4, Albumin 3.7 06/03/18 06:10: Glucometer 84 06/03/18 11:22: Glucometer 116 06/03/18 16:33: Glucometer 104 06/03/18 20:15: Glucometer 191 06/04/18 05:25: Glucometer 110 06/04/18 11:20: Glucometer 154 06/04/18 16:13: Glucometer 140 06/04/18 20:00: Glucometer 215 06/05/18 05:40: Glucometer 163 06/05/18 11:50: Glucometer 132 06/05/18 17:12: Glucometer 113 06/05/18 21:54: Glucometer 339 06/06/18 04:56: Glucometer 125 06/06/18 11:35: Glucometer 137 06/06/18 16:33: Glucometer 141 06/06/18 21:15: Glucometer 221 06/07/18 06:10: Glucometer 110 Discharge Home Medications: Active Scripts Active Ondansetron Odt (Ondansetron) 4 Mg Tab.rapdis 4 Mg PO Q6H PRN Tramadol HCl 50 Mg Tablet 50 Mg PO Q6H PRN Hydrocodone/Acetaminophen 5/325mg Tablet (Acetaminophen/Hydrocodone Bitart) 1 Tab Tab 1 Tab PO Q4H PRN Cyclobenzaprine HCl 10 Mg Tablet 5 Mg PO TID Reported Estrace Cream (Estradiol) 42.5 Gm Cream.appl VG ELIECER [address] [address] 24,000 Units Capsule (Lipase/Protease/Amylase) 1 Each Capsule. 24, 000 Units PO QID Midodrine HCl 5 Mg Tablet 5 Mg PO TID LAST FILLED 11-01-17 #270 Potassium Chloride 10 Meq Tab.er.prt 10 Meq PO BID Glipizide ER (Glipizide) 10 Mg Tab.er.24 5 Mg PO DAILY Promethazine Tablet (Promethazine HCl) 25 Mg Tablet 25 Mg PO Q6H PRN Ranitidine HCl 150 Mg Tablet 150 Mg PO DAILY Northera (Droxidopa) 200 Mg Capsule 200 Mg PO TID Flonase Allergy Relief (Fluticasone Propionate) 9.9 Ml [place].susp 1 [place] NS DAILY PRN Magnesium (Magnesium Oxide) 500 Mg Capsule 500 Mg PO DAILY Metformin HCl ER (Metformin HCl) 500 Mg Tab.er.24h 500 Mg PO BID Gabapentin 100 Mg Capsule 100 Mg PO TID Fludrocortisone Acetate 0.1 Mg Tab 0.2 Mg PO DAILY TAKES 2 (0.1MG) TABLETS Benadryl (Diphenhydramine HCl) 25 Mg Capsule 25-50 Mg PO BID PRN Cyanocobalamin Injection (Cyanocobalamin) 1,000 Mcg/Ml Inj 1,000 Mg INJ MONTHLY Vitamin D3 (Cholecalciferol (Vitamin D3)) 2,000 Unit Capsule 2,000 Unit PO DAILY Colestipol HCl 1 Gm Tablet 1 Gm PO BID Instructions to patient/family Please see electronic discharge instructions given to patient. Diagnosis/Problems Diagnosis/Problems (1) Lumbar stenosis Status: Chronic Qualifiers: Qualified Codes: M48.061 - Spinal stenosis, lumbar region without neurogenic claudication (2) POTS (postural orthostatic tachycardia syndrome) Status: Chronic (3) History of UTI Status: Chronic (4) Anemia due to acute blood loss Status: Chronic (5) Weakness Status: Chronic (6) Neuropathy (7) GERD (gastroesophageal reflux disease) Status: Chronic Qualifiers: Qualified Codes: K21.9 - Gastro-esophageal reflux disease without esophagitis (8) Diabetes mellitus Status: Chronic Qualifiers: Qualified Codes: E11.9 - Type 2 diabetes mellitus without complications (9) B12 deficiency Status: Chronic (10) Headache Status: Chronic Qualifiers: (11) Neurogenic bladder Status: Chronic (12) Hematoma following procedure Status: Resolved (13) Acute UTI Status: Resolved Clinical Quality Measures DVT/VTE Risk/Contraindication: Risk Factor Score Per Nursin RFS Level Per Nursing on Admit: 2=Moderate MALIKA VÁZQUEZ DO Jun 07, 2018 09:47
[2018-06-07] MEDS: HYDROcodone/APAP 5 MG/325 MG (LORTAB) TAB PO PRN (10:03)
--- NOTE | 2018-06-07 12:11 | Therapy Team Discharge Summary ---
Therapy Discharge Summary Discharge Recommendations Date of Discharge 06/07/2018 Therapy D/C Recommendations: Home w/ Family Support, Occupational Therapy Home Care Physical Therapy This patient was admitted to ARU post surgical intervention due to lumbar stenosis. Her PLOF was indep with mobility. Upon admission to this facilty, she required mod assist with transfers, walked 20 ft with FWW with min assist and was unable to attempt stairs due to safety. Treatment has consisted of functional strength training, transfers, balance, and gait progression to progress so she could return home with her spouse. She has made good progress and has achieved goals to a satisfactory level. She is mod indep with transfers , SBA with gait and went up/down 4 steps with CGA. She is to discharge home with assist as needed with recommended follow up HHC . CASH PT. Occupational Therapy Decreased Activ Tolerance PT Seo Associate Goals Seo Associate Goals PT Residential Goals Time Frame: Jun 18, 2018 Transfers (B,C,W/C) (FIM): 5 (exceeded; score a 6) Roll Left to Right (QC): 6 Sit to Lying (QC): 6 Lying-Sitting on Side/Bed(QC): 6 Sit to Stand (QC): 4 Chair/Tjv-fu-Kefqo Xfer(QC): 4 Car Transfer (QC): 4 Gait (FIM): 5 (met) Distance: 150' Walk 10 feet (QC): 4 Walk 10ft-Uneven Surface(QC): 4 Walk 50ft with 2 Turns (QC): 4 Walk 150 ft (QC): 4 Gait Level of Assist: 5 Gait Assistive Device: FWW Stairs (FIM): 2 (et) # of Steps: 4 1 Step (curb) (QC): 4 4 Steps (QC): 4 Stairs Level Of Assist: 4 OT Seo Associate Goals Residential Goals Time Frame: Jun 11, 2018 Eating (FIM): 6 Eating (QC): 6 Oral Hygiene (QC): 6 Grooming(FIM): 6 Bathing(FIM): 5 Shower/Bathe Self (QC): 5 Upper Body Dressing(FIM): 6 Upper Body Dressing (QC): 6 Lower Body Dressing(FIM): 6 Lower Body Dressing (QC): 6 On/Off Footwear (QC): 6 Toileting(FIM): 6 Toileting Hygiene (QC): 6 Transfers (B,C,W/C) (FIM): 6 Toilet/Commode Transfer(FIM): 6 Toilet/Commode Transfer (QC): 6 Shower Transfer(FIM): 5 Additional Goals: 1-Demonstrate ADL Tasks, 2-Verbalize Understanding, 3- ImproveStrength/Bushra 1=Demonstrate adherence to instructed precautions during ADL tasks. 2=Patient will verbalize/demonstrate understanding of assistive devices/ modifications for ADL. 3=Patient will improve strength/tolerance for activity to enable patient to perform ADL's. RIVAS GIRON PT Jun 07, 2018 12:11
--- NOTE | 2018-06-10 10:35 | Therapy Team Discharge Summary ---
Therapy Discharge Summary Discharge Recommendations Date of Discharge Jun 07, 2018 at 10:35 Therapy D/C Recommendations: Home w/ Family Support Occupational Therapy Pt. has been seen by occupational therapy to increase overall strength and independence. Pt. has met all goals and has discharged home with spouse and other family involvement. All needs met at this facility. Decreased Activ Tolerance, Impaired I ADL's PT Mcfp Goals Mcfp Goals PT Software Development Specialist Goals Time Frame: Jun 18, 2018 Transfers (B,C,W/C) (FIM): 5 (exceeded; score a 6) Roll Left to Right (QC): 6 Sit to Lying (QC): 6 Lying-Sitting on Side/Bed(QC): 6 Sit to Stand (QC): 4 Chair/Tfr-am-Dewgs Xfer(QC): 4 Car Transfer (QC): 4 Gait (FIM): 5 (met) Distance: 150' Walk 10 feet (QC): 4 Walk 10ft-Uneven Surface(QC): 4 Walk 50ft with 2 Turns (QC): 4 Walk 150 ft (QC): 4 Gait Level of Assist: 5 Gait Assistive Device: FWW Stairs (FIM): 2 (et) # of Steps: 4 1 Step (curb) (QC): 4 4 Steps (QC): 4 Stairs Level Of Assist: 4 OT Software Development Specialist Goals Mcfp Goals Time Frame: Jun 11, 2018 Eating (FIM): 6 (met) Eating (QC): 6 (met) Oral Hygiene (QC): 6 (met) Grooming(FIM): 6 (met) Bathing(FIM): 5 (met) Shower/Bathe Self (QC): 5 (met) Upper Body Dressing(FIM): 6 (met) Upper Body Dressing (QC): 6 (met) Lower Body Dressing(FIM): 6 (met) Lower Body Dressing (QC): 6 (met) On/Off Footwear (QC): 6 (met) Toileting(FIM): 6 (met) Toileting Hygiene (QC): 6 (met) Transfers (B,C,W/C) (FIM): 6 (met) Toilet/Commode Transfer(FIM): 6 (met) Toilet/Commode Transfer (QC): 6 (met) Shower Transfer(FIM): 5 (met) Additional Goals: 1-Demonstrate ADL Tasks, 2-Verbalize Understanding, 3- ImproveStrength/Bushra 1=Demonstrate adherence to instructed precautions during ADL tasks. 2=Patient will verbalize/demonstrate understanding of assistive devices/ modifications for ADL. 3=Patient will improve strength/tolerance for activity to enable patient to perform ADL's. MARTINA IQBAL OT Jun 10, 2018 10:35
== END 2018-06-07 10:35 | disposition home health service (06) | DRG 560 ==
PROVIDERS: ADMIT Internal Medicine; ATTEND Internal Medicine
DX: Z47.89 Encounter for other orthopedic aftercare (principal); D62 Acute posthemorrhagic anemia; N39.0 Urinary tract infection, site not specified; I10 Essential (primary) hypertension; I49.8 Other specified cardiac arrhythmias; G62.9 Polyneuropathy, unspecified; N31.9 Neuromuscular dysfunction of bladder, unspecified; E11.42 Type 2 diabetes mellitus with diabetic polyneuropathy; K21.9 Gastro-esophageal reflux disease without esophagitis; M19.90 Unspecified osteoarthritis, unspecified site; E53.8 Deficiency of other specified B group vitamins; R51 Headache; R09.89 Other specified symptoms and signs involving the circulatory and respiratory systems; Z87.891 Personal history of nicotine dependence; I95.1 Orthostatic hypotension; K59.00 Constipation, unspecified; L76.32 Postprocedural hematoma of skin and subcutaneous tissue following other procedure
CPT/HCPCS: 36415; 80053; 82962; 85025; 87077; 87088; 87186; 94664

== ENCOUNTER → 2018-09-23 | Outpatient (CLI) | payer MEDICARE, OTHER ==
[~2018-09-23] MED LIST: ACHD5005 PO; CHOL20003 PO; CNC1KV INJ; COLE1TAB PO; CYCL10TA9 PO; DIPH25CA79 PO; DROX200C PO; ESTR42.52 VG; FLDR.1T PO; FLUT9.9S NS; GABA-486 PO; GLIP10TA24 PO; LIPA1CAP4 PO; MAGN500C15 PO; METF500T8 PO; MIDO5TAB PO; ONDA4TAB11 PO; POTA10TA36 PO; PROM25TA14 PO; RANI150T11 PO; TRAM50TA2 PO
--- NOTE | 2018-09-23 18:07 | Diagnostic Imaging Report ---
INDICATION: Back pain post fall. AP and lateral views of the thoracic spine are obtained. The thoracic vertebrae appear normal in height and alignment. There is no overt fracture or compression deformity. The disc spaces are normal in height. IMPRESSION: Negative plain radiographs of the thoracic spine. Dictated by: Dictated on workstation # [id number]
== END ==
LOC: RAD FS 17:40
PROVIDERS: ATTEND Family Medicine
DX: M54.6 Pain in thoracic spine (principal); W19.XXXA Unspecified fall, initial encounter
CPT/HCPCS: 72070

== ENCOUNTER → 2018-11-15 | Outpatient (CLI) | payer MEDICARE, OTHER ==
--- NOTE | 2018-11-15 14:54 | Diagnostic Imaging Report ---
INDICATION: 4 months post back surgery. Had recent fall, now with pain since fall. TECHNIQUE: AP, Lateral and Spot imaging of the lumbar spine at 12:54 PM CORRELATION STUDY: Thoracic spine 09/23/2018 FINDINGS: Posterior fusion hardware transpedicular screws and interconnecting rods at L3-L4 level along with an intervertebral disc spacer device. There is a very slight lucency surrounding the intervertebral disc spacer device particularly the of L3 vertebral body. Additionally, there is very slight lucency at the tip of the right L4 screw of approximately less than 2 mm at the tip of the of right fourth screw. There is leftward curvature of the lumbar spine, apex at L2 level. There is loss of approximately one-third vertebral body height at the central anterior aspect superior L1 vertebral body. Features do suggest acute compression. The remaining lumbar vertebral body heights overall are otherwise maintained. Significant severity calcification of the abdominal aorta. SI joints are fused on the right and appear to be mildly sclerotic on the left. IMPRESSION: Posterior fusion decompressive laminectomies at L3-L4 level. There is very slight lucency surrounding the right L4 screw tip and a question of some lucency surrounding the intervertebral disc spacer device. Compression deformity involving superior L1 endplate with loss of approximately 1/3 vertebral body height. This does appear to be a change from the previous thoracic spine imaging consistent with acute fracture. Report given to nurse (Dagmar) & faxed to [phone] at 2:53 p.m. 11/15/2018/lillian Dictated by: Dictated on workstation # [id number]
== END ==
LOC: RAD FS 12:39
PROVIDERS: ATTEND Orthopaedic Surgery
DX: M43.16 Spondylolisthesis, lumbar region (principal); M51.36 Other intervertebral disc degeneration, lumbar region; M43.8X6 Other specified deforming dorsopathies, lumbar region; W19.XXXA Unspecified fall, initial encounter; Z98.1 Arthrodesis status
CPT/HCPCS: 72100

== ENCOUNTER 2019-03-21 17:34 | Emergency (ER) | payer MEDICARE, OTHER ==
[~2019-03-21] VITALS: Ht 160 cm; Wt 54.0 kg
[2019-03-21] MEDS ORDERED: NS IV 1000 ML 1,000 ML IV SCH (17:45)
[2019-03-21 17:56] LABS: HEMOGLOBIN 12.8 G/DL (11.5-16.0); MEAN CORPUSCULAR HEMOGLOBIN 30 PG (25-34); WHITE BLOOD COUNT 8.4 10^3/uL (4.3-11.0)
[2019-03-21 17:57] LABS: BASOPHILS # (AUTO) 0.1 10^3/uL (0.0-0.1); BASOPHILS % (AUTO) 1 % (0-10); EOSINOPHILS # (AUTO) 0.1 10^3/uL (0.0-0.3); EOSINOPHILS % (AUTO) 1 % (0-10); HEMATOCRIT 40 % (35-52); LYMPHOCYTES # (AUTO) 2.1 X 10^3 (1.0-4.0); LYMPHOCYTES % (AUTO) 25 % (12-44); MEAN CORPUSCULAR HGB CONC 32 G/DL (32-36); MEAN CORPUSCULAR VOLUME 94 FL (80-99); MONOCYTES # (AUTO) 0.7 X 10^3 (0.0-1.0); MONOCYTES % (AUTO) 9 % (0-12); NEUTROPHILS # (AUTO) 5.4 X 10^3 (1.8-7.8); NEUTROPHILS % (AUTO) 64 % (42-75); PLATELET COUNT 398 10^3/uL (130-400); RED CELL DISTRIBUTION WIDTH 13.7 % (10.0-14.5)
[2019-03-21 18:18] LABS: ALBUMIN 3.9 GM/DL (3.2-4.5); BILIRUBIN,TOTAL 0.2 MG/DL (0.1-1.0); CREATININE SERUM 1.16 MG/DL (0.60-1.30); POTASSIUM 4.1 MMOL/L (3.6-5.0); TOTAL PROTEIN 7.7 GM/DL (6.4-8.2)
--- NOTE | 2019-03-21 18:31 | ED General ---
General Chief Complaint: General Problems/Pain Stated Complaint: GEN WEAKNESS Nursing Triage Note: PT REPORTS WEAKNESS X 3 DAYS AND SHE USUALLY NEEDS IV FLUID BOLUSES. Nursing Sepsis Screen: No Definite Risk Source of Information: Patient Exam Limitations: No Limitations History of Present Illness Date Seen by Provider: Mar 21, 2019 Time Seen by Provider: 17:40 Initial Comments Presents w c/o "weakness" for past couple days and states, " I need IV fluids" when I get this way. Denies abdominal pain or vomiting, admits to chronic diarrhea daily depending on what she eats. Also, states she used to be in the ER weekly for IVF's. Denies CP or SOA. Denies fever or chills Allergies and Home Medications Allergies Coded Allergies: amoxicillin (Verified Allergy, Unknown, 05/27/18) clavulanic acid (Verified Allergy, Unknown, 05/27/18) moxifloxacin (Verified Allergy, Unknown, 05/27/18) sulfamethoxazole (Verified Allergy, Unknown, 05/27/18) trimethoprim (Verified Allergy, Unknown, 05/27/18) Home Medications Cholecalciferol (Vitamin D3) 2,000 Unit Capsule, 2,000 UNIT PO DAILY, (Reported) Colestipol HCl 1 Gm Tablet, 1 GM PO BID, (Reported) Cyanocobalamin 1,000 Mcg/Ml Inj, 1,000 MG INJ MONTHLY, (Reported) Cyclobenzaprine HCl 10 Mg Tablet, 5 MG PO TID Prescribed by: MALIKA VÁZQUEZ on 06/07/18 0945 Diphenhydramine HCl 25 Mg Capsule, 25-50 MG PO BID PRN for SLEEP/ITCHING, (Reported) Droxidopa 200 Mg Capsule, 200 MG PO TID, (Reported) Estradiol 42.5 Gm Cream.appl, VG MoWeFr, (Reported) Fludrocortisone Acetate 0.1 Mg Tab, 0.2 MG PO DAILY, (Reported) TAKES 2 (0.1MG) TABLETS Fluticasone Propionate 9.9 Ml [place].susp, 1 SPRAY NS DAILY PRN for ALLERGIES, (Reported) Gabapentin 100 Mg Capsule, 100 MG PO TID, (Reported) Glipizide 10 Mg Tab.er.24, 5 MG PO DAILY, (Reported) Hydrocodone Bit/Acetaminophen 1 Tab Tab, 1 TAB PO Q4H PRN for PAIN-SEVERE Prescribed by: MALIKA VÁZQUEZ on 06/07/18 0945 Lipase/Protease/Amylase 1 Each Capsule.dr, 24,000 UNITS PO QID, (Reported) Magnesium Oxide 500 Mg Capsule, 500 MG PO DAILY, (Reported) Metformin HCl 500 Mg Tab.er.24h, 500 MG PO BID, (Reported) Midodrine HCl 5 Mg Tablet, 5 MG PO TID, (Reported) LAST FILLED 11-01-17 #270 Ondansetron 4 Mg Tab.rapdis, 4 MG PO Q6H PRN for NAUSEA/VOMITING Prescribed by: MALIKA VÁZQUEZ on 06/07/18 0945 Potassium Chloride 10 Meq Tab.er.prt, 10 MEQ PO BID, (Reported) Promethazine HCl 25 Mg Tablet, 25 MG PO Q6H PRN for NAUSEA/VOMITING-2ND LINE, (Reported) Ranitidine HCl 150 Mg Tablet, 150 MG PO DAILY, (Reported) Tramadol HCl 50 Mg Tablet, 50 MG PO Q6H PRN for PAIN-MODERATE Prescribed by: MALIKA VÁZQUEZ on 06/07/18 09 Patient Home Medication List Home Medication List Reviewed: Yes Review of Systems Review of Systems Constitutional: see HPI; No chills, No diaphoresis, No dizziness, No fever; malaise, weakness Respiratory: no symptoms reported; No cough, No dyspnea on exertion Cardiovascular: no symptoms reported; No chest pain, No palpitations, No syncope Gastrointestinal: see HPI; No abdominal pain, No constipation; diarrhea; No dysphagia, No hematemesis, No heartburn; loss of appetite; No nausea, No vomiting Genitourinary: no symptoms reported; No decreased output, No dysuria, No frequency, No hematuria Musculoskeletal: No back pain, No joint pain Past Qjtsryd-Butfwz-Veieaw Hx Past Med/Social Hx: Reviewed Nursing Past Med/Soc Hx Patient Social History Alcohol Use: Denies Use Recreational Drug Use: No Smoking Status: Former Smoker 2nd Hand Smoke Exposure: No Recent Foreign Travel: No Contact w/Someone Who Travel: No Recent Infectious Disease Expo: No Recent Hopitalizations: Yes Physical Abuse: No Sexual Abuse: No Mistreated: No Fear: No Immunizations Up To Date Date of Pneumonia Vaccine: Mar 09, 2015 Date of Influenza Vaccine: May 27, 2018 Past Medical History Gallbladder, Orthopedic Respiratory: No Currently Using CPAP: No Currently Using BIPAP: No Cardiac: Yes (orthostaic hypotension) Hypertension, Hypotension, Palpitations Neurological: Yes Neuropathy Genitourinary: Yes (must be straight cath) Neurogenic Bladder Gastrointestinal: Yes Gastroesophageal Reflux Musculoskeletal: Yes (lumbar stenosis with disc herniation) Arthritis, Chronic Back Pain Endocrine: Yes (neuropathy) Diabetes, Non-Insulin dep HEENT: Yes Cataract Loss of Vision: Denies Hearing Impairment: Denies Cancer: No Psychosocial: No Integumentary: No Blood Disorders: No Adverse Reaction/Blood Tranf: No Family Medical History Completed stroke 19 MOTHER (cva) G8 SISTER (cva) Diabetes mellitus 19 FATHER (neurpathy) Headache disorder 19 MOTHER (migraines) G8 BROTHER (migraines) G8 SISTER (migraines) Neoplasm 19 MOTHER (cancer) Diabetes Physical Exam Vital Signs Vital Signs - First Documented 03/21/19 03/21/19 17:40 19:09 Temp 36.7 Pulse 79 Resp 18 B/P (MAP) 126/93 (104) Pulse Ox 97 O2 Delivery Room Air Capillary Refill : Less Than 3 Seconds Height, Weight, BMI Height: 5'2.00" Weight: 144lbs. 0.9oz. [id number]; 21.00 BMI Method: General Appearance: No Apparent Distress, WD/WN; No Anxious, No Chronically ill HEENT: Normal ENT Inspection, Pharynx Normal Neck: Full Range of Motion, Normal Inspection, Non Tender Respiratory: Chest Non Tender, Lungs Clear, Normal Breath Sounds Cardiovascular: Regular Rate, Rhythm, No Edema Gastrointestinal: Normal Bowel Sounds, Non Tender; No Distended, No Guarding Extremity: Normal Capillary Refill, Non Tender Neurologic/Psychiatric: Alert, Oriented x3, No Motor/Sensory Deficits Skin: Normal Color, Warm/Dry Progress/Results/Core Measures Suspected Sepsis Recent Fever Within 48 Hours: No Infection Criteria Present: None New/Unexplained Altered Menta: No Sepsis Screen: No Definite Risk SIRS Temperature: Pulse: 79 Respiratory Rate: 18 Laboratory Tests 03/21/19 17:50: White Blood Count 8.4 Blood Pressure 126 /93 Mean: 104 Laboratory Tests 03/21/19 17:50: Creatinine 1.16, Platelet Count 398, Total Bilirubin 0.2 Results/Orders Lab Results Laboratory Tests Test 03/21/19 17:50 03/21/19 18:19 Range/Units White Blood Count 8.4 4.3-11.0 10^3/uL Red Blood Count 4.22 L 4.35-5.85 10^6/uL Hemoglobin 12.8 11.5-16.0 G/DL Hematocrit 40 35-52 % Mean Corpuscular Volume 94 80-99 FL Mean Corpuscular Hemoglobin 30 25-34 PG Mean Corpuscular Hemoglobin Concent 32 32-36 G/DL Red Cell Distribution Width 13.7 10.0-14.5 % Platelet Count 398 130-400 10^3/uL Mean Platelet Volume 9.0 7.4-10.4 FL Neutrophils (%) (Auto) 64 42-75 % Lymphocytes (%) (Auto) 25 12-44 % Monocytes (%) (Auto) 9 0-12 % Eosinophils (%) (Auto) 1 0-10 % Basophils (%) (Auto) 1 0-10 % Neutrophils # (Auto) 5.4 1.8-7.8 X 10^3 Lymphocytes # (Auto) 2.1 1.0-4.0 X 10^3 Monocytes # (Auto) 0.7 0.0-1.0 X 10^3 Eosinophils # (Auto) 0.1 0.0-0.3 10^3/uL Basophils # (Auto) 0.1 0.0-0.1 10^3/uL Sodium Level 133 L 135-145 MMOL/L Potassium Level 4.1 3.6-5.0 MMOL/L Chloride Level 87 L 98-107 MMOL/L Carbon Dioxide Level 32 21-32 MMOL/L Anion Gap 14 5-14 MMOL/L Blood Urea Nitrogen 22 H 7-18 MG/DL Creatinine 1.16 0.60-1.30 MG/DL Estimat Glomerular Filtration Rate 46 BUN/Creatinine Ratio 19 Glucose Level 274 H 70-105 MG/DL Calcium Level 10.0 8.5-10.1 MG/DL Corrected Calcium 10.1 8.5-10.1 MG/DL Total Bilirubin 0.2 0.1-1.0 MG/DL Aspartate Amino Transf (AST/SGOT) 30 5-34 U/L Alanine Aminotransferase (ALT/SGPT) 18 0-55 U/L Alkaline Phosphatase 113 40-136 U/L Total Protein 7.7 6.4-8.2 GM/DL Albumin 3.9 3.2-4.5 GM/DL Troponin I < 0.30 <0.30 NG/ML My Orders Orders - ROVENSTINE,MARY CARMEN L DO Ed Iv/Invasive Line Start (03/21/19 17:44) Cbc With Automated Diff (03/21/19 17:44) Comprehensive Metabolic Panel (03/21/19 17:44) Ns Iv 1000 Ml (Sodium Chloride 0.9%) (03/21/19 17:45) Troponin I Fs (03/21/19 18:19) Ekg Tracing (03/21/19 18:19) Chest 1 View Ap/Pa Only (03/21/19 18:19) Vital Signs/I&O 03/21/19 03/21/19 17:40 19:09 Temp 36.7 36.8 Pulse 79 80 Resp 18 12 B/P (MAP) 126/93 (104) 134/86 Pulse Ox 97 97 O2 Delivery Room Air 03/22/19 00:00 Intake Total 1000 ml Balance 1000 ml Capillary Refill : Less Than 3 Seconds Blood Pressure Mean: 104 POS ECG Initial ECG Impression Date: Mar 21, 2019 Initial ECG Impression Time: 18:18 Initial ECG Rhythm: Normal Sinus Initial ECG Intervals: Normal Initial ECG Comparisson: Unchanged (compared to ECG 15 December 2016) Comment IVCD most like LBBB, present on previous ECG's. rate 83 Departure Impression Primary Impression: Weakness Disposition: 01 HOME, SELF-CARE Condition: Improved Departure-Patient Inst. Referrals: SELFFRANKY MD (PCP/Family) Primary Care Physician Patient Instructions: Generalized Weakness (DC) MARY CARMEN ESCALANTE DO Mar 21, 2019 18:31 POS
--- NOTE | 2019-03-21 18:38 | Diagnostic Imaging Report ---
INDICATION: Weakness FINDINGS: There is elevation of the right diaphragm. The heart size within normal limits. There is some partial atelectatic changes right perihilar distribution. No radhames pneumonia and no findings suggestive of edema. IMPRESSION: Mild right-sided perihilar partial atelectasis and an elevated right diaphragm. Dictated by: Dictated on workstation # [id number]
[2019-03-21 19:09] VITALS: BP 134/86
--- OUTSIDE RECORDS SUMMARY | 2019-04-16 15:59 | XMS REPORT | Continuity of Care Document ---
Author Organization Unknown Address Unknown Phone Unavailable Allergies Active Description Code Type Severity Reaction Onset Reported/Identified Relationship to Patient Clinical Status Yes amoxicillin [id number] Drug Aller gy Unknown N/A 05/27/2018 Yes clavulanic acid [id number] D rug Allergy Unknown N/A 05/27/2018 Yes moxifloxacin [id number] Drug Allergy Unknown N/A 05/27/2018 Yes No Known Drug Allergies [id number] Drug Allergy Unknown N/A 05/27/2018 Yes sulfamethoxazole [id number] Drug Allergy Unknown N/A 05/27/2018 Yes trimethoprim [id number] Drug Allergy Unknown N/A 05/27/2018 Medications There is no data. Problems Date Dx Coded Attending Type Code Diagnosis Diagnosed By 05/30/2018 MALIKA VÁZQUEZ DO Ot D62 ACUTE POSTHEMORRHAGIC ANEMIA 05/30/2018 REHAN VÁZQUEZ DOI Ot E11.9 TYPE 2 DIABETES MELLITUS WITHOUT COMPLIC 05/30/2018 REHAN VÁZQUEZ DOI Ot E53.8 DEFICIENCY OF OTHER SPECIFIED B GROUP 05/30/2018 KATHIE CASIANO MALIKA Ot G62.9 POLYNEUROPATHY, UNSPECIFIED 05/30/2018 KATHIE CASIANO MALIKA Ot I10 ESSENTIAL (PRIMARY) HYPERTENSION 05/30/2018 REHAN VÁZQUEZ DOI Ot I49.8 OTHER SPECIFIED CARDIAC ARRHYTHMIAS 05/30/2018 KATHIE CASIANO MALIKA Ot K21.9 GASTRO-ESOPHAGEAL REFLUX DISEASE WITHOUT 05/30/2018 KATHIE CASIANO MALIKA Ot M19.90 UNSPECIFIED OSTEOARTHRITIS, UNSPECIFIED 05/30/2018 REHAN VÁZQUEZ DOI Ot N31.9 NEUROMUSCULAR DYSFUNCTION OF BLADDER, UN 05/30/2018 MALIKA VÁZQUEZ DO Ot N39.0 URINARY TRACT INFECTION, SITE NOT SPECIF 05/30/2018 MALIKA VÁZQUEZ DO Ot R09.89 OTH SYMPTOMS AND SIGNS INVOLVING THE CIR 05/30/2018 REHAN VÁZQUEZ DOI Ot R51 HEADACHE 05/30/2018 MALIKA VÁZQUEZ DO Ot Z47.89 ENCOUNTER FOR OTHER ORTHOPEDIC AFTERCARE 05/30/2018 KATHIE CASIANO MALIKA Ot Z87.89 1 PERSONAL HISTORY OF NICOTINE DEPENDENCE 06/06/2018 VÁZQUEZ DO, MALIKA Ot D62 ACUTE POSTHEMORRHAGIC ANEMIA 06/06/2018 VÁZQUEZ DO, MALIKA Ot E11.9 TYPE 2 DIABETES MELLITUS WITHOUT COMPLIC 06/06/2018 VÁZQUEZ DO, MALIKA Ot E53.8 DEFICIENCY OF OTHER SPECIFIED B GROUP 06/06/2018 VÁZQUEZ DO, MALIKA Ot G62.9 POLYNEUROPATHY, UNSPECIFIED 06/06/2018 VÁZQUEZ DO, MALIKA Ot I10 ESSENTIAL (PRIMARY) HYPERTENSION 06/06/2018 VÁZQUEZ DO, MALIKA Ot I49.8 OTHER SPECIFIED CARDIAC ARRHYTHMIAS 06/06/2018 VÁZQUEZ DO, MALIKA Ot K21.9 GASTRO-ESOPHAGEAL REFLUX DISEASE WITHOUT 06/06/2018 VÁZQUEZ DO, MALIKA Ot M19.90 UNSPECIFIED OSTEOARTHRITIS, UNSPECIFIED 06/06/2018 VÁZQUEZ DO, MALIKA Ot N31.9 NEUROMUSCULAR DYSFUNCTION OF BLADDER, UN 06/06/2018 KATHIE DO MALIKA Ot N39.0 URINARY TRACT INFECTION, SITE NOT SPECIF 06/06/2018 KATHIE DO MALIKA Ot R09.89 OTH SYMPTOMS AND SIGNS INVOLVING THE CIR 06/06/2018 KATHIE DO MALIKA Ot R51 HEADACHE 06/06/2018 KATHIE DO MALIKA Ot Z47.89 ENCOUNTER FOR OTHER ORTHOPEDIC AFTERCARE 06/06/2018 KATHIE DO MALIKA Ot Z87.89 1 PERSONAL HISTORY OF NICOTINE DEPENDENCE 06/07/2018 VÁZQUEZ DO MALIKA Ot D62 ACUTE POSTHEMORRHAGIC ANEMIA 06/07/2018 KATHIE DO MALIKA Ot E11.42 TYPE 2 DIABETES MELLITUS WITH DIABETIC P 06/07/2018 KATHIE DO MALIKA Ot E53.8 DEFICIENCY OF OTHER SPECIFIED B GROUP 06/07/2018 VÁZQUEZ DO, MALIKA Ot G62.9 POLYNEUROPATHY, UNSPECIFIED 06/07/2018 VÁZQUEZ DO, MALIKA Ot I10 ESSENTIAL (PRIMARY) HYPERTENSION 06/07/2018 VÁZQUEZ DO, MALIKA Ot I49.8 OTHER SPECIFIED CARDIAC ARRHYTHMIAS 06/07/2018 VÁZQUEZ DO, MALIKA Ot I95.1 ORTHOSTATIC HYPOTENSION 06/07/2018 VÁZQUEZ DO, MALIKA Ot K21.9 GASTRO-ESOPHAGEAL REFLUX DISEASE WITHOUT 06/07/2018 VÁZQUEZ DO, MALKIA Ot K59.00 CONSTIPATION, UNSPECIFIED 06/07/2018 VÁZQUEZ DO, MALIKA Ot L76.32 POSTPROC HEMATOMA OF SKIN, SUBCU FOLLOWI 06/07/2018 VÁZQUEZ DO MALIKA Ot M19.90 UNSPECIFIED OSTEOARTHRITIS, UNSPECIFIED 06/07/2018 VÁZQUEZ DO MALIKA Ot N31.9 NEUROMUSCULAR DYSFUNCTION OF BLADDER, UN 06/07/2018 VÁZQUEZ DO MALIKA Ot N39.0 URINARY TRACT INFECTION, SITE NOT SPECIF 06/07/2018 VÁZQUEZ DO MALIKA Ot R09.89 OTH SYMPTOMS AND SIGNS INVOLVING THE CIR 06/07/2018 VÁZQUEZ DO MALIKA Ot R51 HEADACHE 06/07/2018 VÁZQUEZ DO MALIKA Ot Z47.89 ENCOUNTER FOR OTHER ORTHOPEDIC AFTERCARE 06/07/2018 KATHIE CASIANO MALIKA Ot Z87.89 1 PERSONAL HISTORY OF NICOTINE DEPENDENCE 09/23/2018 FRANKY WADE MD Ot M54.6 PAIN IN THORACIC SPINE 09/23/2018 FRANKY WADE MD Ot W19.XX XA UNSPECIFIED FALL, INITIAL ENCOUNTER 09/26/2018 FRANKY WADE MD Ot M54.6 PAIN IN THORACIC SPINE 09/26/2018 FRANKY WADE MD Ot W19.XX XA UNSPECIFIED FALL, INITIAL ENCOUNTER 10/15/2018 FRANKY WADE MD Ot M54.6 PAIN IN THORACIC SPINE 10/15/2018 FRANKY WADE MD Ot W19.XX XA UNSPECIFIED FALL, INITIAL ENCOUNTER 11/19/2018 LOREN GIFFORD MD Ot M43.16 SPONDYLOLISTHESIS, LUMBAR REGION 11/19/2018 LOREN GIFFORD MD Ot M43.8X6 OTHER SPECIFIED DEFORMING DORSOPATHIES, 11/19/2018 LOREN GIFFORD MD Ot M51.36 OTHER INTERVERTEBRAL DISC DEGENERATION, 11/19/2018 LOREN GIFFORD MD Ot W19.XXXA UNSPECIFIED FALL, INITIAL ENCOUNTER 11/19/2018 LOREN GIFFORD MD Ot Z98.1 ARTHRODESIS STATUS 11/19/2018 LOREN GIFFORD MD Ot M43.16 SPONDYLOLISTHESIS, LUMBAR REGION 11/19/2018 LOREN GIFFORD MD Ot M43.8X6 OTHER SPECIFIED DEFORMING DORSOPATHIES, 11/19/2018 LOREN GIFFORD MD Ot M51.36 OTHER INTERVERTEBRAL DISC DEGENERATION, 11/19/2018 ИРИНА PRATER, LOREN Mchugh Ot W19.XXXA UNSPECIFIED FALL, INITIAL ENCOUNTER 11/19/2018 ИРИНА PRATER, LOREN Mchugh Ot Z98.1 ARTHRODESIS STATUS 11/19/2018 LOREN GIFFORD MD Ot M43.16 SPONDYLOLISTHESIS, LUMBAR REGION 11/19/2018 LOREN GIFFORD MD Ot M43.8X6 OTHER SPECIFIED DEFORMING DORSOPATHIES, 11/19/2018 LOREN GIFFORD MD Ot M51.36 OTHER INTERVERTEBRAL DISC DEGENERATION, 11/19/2018 LOREN GIFFORD MD Ot W19.XXXA UNSPECIFIED FALL, INITIAL ENCOUNTER 11/19/2018 LOREN GIFFORD MD Ot Z98.1 ARTHRODESIS STATUS 11/19/2018 LOREN GIFFORD MD Ot M43.16 SPONDYLOLISTHESIS, LUMBAR REGION 11/19/2018 LOREN GIFFORD MD Ot M43.8X6 OTHER SPECIFIED DEFORMING DORSOPATHIES, 11/19/2018 LOREN GIFFORD MD Ot M51.36 OTHER INTERVERTEBRAL DISC DEGENERATION, 11/19/2018 LOREN GIFFORD MD Ot W19.XXXA UNSPECIFIED FALL, INITIAL ENCOUNTER 11/19/2018 LOREN IGFFORD MD Ot Z98.1 ARTHRODESIS STATUS 11/20/2018 LOREN GIFFORD MD Ot M43.16 SPONDYLOLISTHESIS, LUMBAR REGION 11/20/2018 LOREN GIFFORD MD Ot M43.8X6 OTHER SPECIFIED DEFORMING DORSOPATHIES, 11/20/2018 LOREN GIFFORD MD Ot M51.36 OTHER INTERVERTEBRAL DISC DEGENERATION, 11/20/2018 LOREN GIFFORD MD Ot W19.XXXA UNSPECIFIED FALL, INITIAL ENCOUNTER 11/20/2018 LOREN GIFFORD MD Ot Z98.1 ARTHRODESIS STATUS 12/06/2018 LOREN GIFFORD MD Ot M43.16 SPONDYLOLISTHESIS, LUMBAR REGION 12/06/2018 LOREN GIFFORD MD Ot M43.8X6 OTHER SPECIFIED DEFORMING DORSOPATHIES, 12/06/2018 LOREN GIFFORD MD Ot M51.36 OTHER INTERVERTEBRAL DISC DEGENERATION, 12/06/2018 LOREN GIFFORD MD Ot W19.XXXA UNSPECIFIED FALL, INITIAL ENCOUNTER 12/06/2018 LOREN GIFFORD MD Ot Z98.1 ARTHRODESIS STATUS 03/26/2019 ROVENSTINE DO, MARY CARMEN Lucero Ot E11.40 TYPE 2 DIABETES MELLITUS WITH DIABETIC N 03/26/2019 ROVENSTINE DO, MARY CARMEN Lucero Ot I10 ESSENTIAL (PRIMARY) HYPERTENSION 03/26/2019 ROVENSTINE DO, MARY CARMEN Lucero Ot K21.9 GASTRO-ESOPHAGEAL REFLUX DISEASE WITHOUT 03/26/2019 ROVENSTINE DO, MARY CARMEN Lucero Ot R53.1 WEAKNESS 03/26/2019 ROVENSTINE DOMARY CARMEN Ot Z79.51 LONG-TERM (CURRENT) USE OF INHALED STERO 03/26/2019 ROVENSTINE DO, MARY CARMEN Lucero Ot Z79.52 LONG-TERM (CURRENT) USE OF SYSTEMIC STER 03/26/2019 ROVENSTINE DO, MARY CARMEN Lucero Ot Z79.84 LONG-TERM (CURRENT) USE OF ORAL HYPOGLYC 03/26/2019 ROVENSTINE DO, MARY CARMEN Lucero Ot Z87.891 PERSONAL HISTORY OF NICOTINE DEPENDENCE 03/26/2019 ROVENSTINE DO, MARY CARMEN Lucero Ot Z88.1 ALLERGY STATUS TO OTHER ANTIBIOTIC AGENT 03/26/2019 ROVENSTINE DO, MARY CARMEN Lucero Ot Z88.2 ALLERGY STATUS TO SULFONAMIDES STATUS 03/31/2019 ROVENSTINE DO, MARY CARMEN Lucero Ot E11.40 TYPE 2 DIABETES MELLITUS WITH DIABETIC N 03/31/2019 ROVENSTINE DO, MARY CARMEN L Ot I10 ESSENTIAL (PRIMARY) HYPERTENSION 03/31/2019 ROVENSTINE DO, MARY CARMEN Lucero Ot K21.9 GASTRO-ESOPHAGEAL REFLUX DISEASE WITHOUT 03/31/2019 ROVENSTINE DOMARY CARMEN Ot R53.1 WEAKNESS 03/31/2019 ROVENSTINE DO, MARY CARMEN Lucero Ot Z79.51 LEATHER CURRIER (CURRENT) USE OF INHALED STERO 03/31/2019 ROVENSTINE DO, MARY CARMEN L Ot Z79.52 LONG-TERM (CURRENT) USE OF SYSTEMIC STER 03/31/2019 ROVENSTINE DO, MARY CARMEN Lucero Ot Z79.84 LEATHER CURRIER (CURRENT) USE OF ORAL HYPOGLYC 03/31/2019 ROVENSTINE DO, MARY CARMEN Lucero Ot Z87.891 PERSONAL HISTORY OF NICOTINE DEPENDENCE 03/31/2019 ROVENSTINE DO, MARY CARMEN L Ot Z88.1 ALLERGY STATUS TO OTHER ANTIBIOTIC AGENT 03/31/2019 MARY CARMEN ESCALANTE DO Ot Z88.2 ALLERGY STATUS TO SULFONAMIDES STATUS Procedures There is no data. Results Test Result Range Capillary blood glucose measurement by g lucometer (mass/volume) - 05/27/18 22:01 Capillary blood glucose measurement by glucometer (mas s/volume) 274 mg/dL 70-110 Complete blood count (CBC) with automate d white blood cell (WBC) differential - 05/28/18 05:48 Blood leukocytes automated count (number/volume) 7.1 10*3/uL 4.3-11.0 Blood erythrocytes automated count (number/volume) 3.24 10*6/uL 4.35-5.85 Venous blood hemoglobin measurement (mass/volume) 10.1 g/dL 11.5-16.0 Blood hematocrit (volume fraction) 31 % 35-52 Automated erythrocyte mean corpuscular volume 96 [ foz_us] 80-99 Automated erythrocyte mean corpuscular h emoglobin (mass per erythrocyte) 31 pg 25-34 Automated erythrocyte mean corpuscular h emoglobin concentration measurement (mass/volume) 32 g/dL 32-36 Automated erythrocyte distribution width ratio 13. 1 % 10.0- 14.5 Automated blood platelet count (count/volume) 373 10*3/uL 130-400 Automated blood platelet mean volume measurement 8.8 [foz_us] 7.4-10.4 Automated blood neutrophils/100 leukocytes 60 % 42-75 Automated blood lymphocytes/100 leukocytes 26 % 12-44 Blood monocytes/100 leukocytes 12 % 0-12 Automated blood eosinophils/100 leukocytes 2 % 0-10 Automated blood basophils/100 leukocytes 0 % 0-10 Blood neutrophils automated count (number/volume) 4.3 10*3 1.8-7.8 Blood lymphocytes automated count (number/volume) 1.9 10*3 1.0-4.0 Blood monocytes automated count (number/volume) 0. 8 10*3 0.0-1.0 Automated eosinophil count 0.1 10*3/uL 0 .0-0.3 Automated blood basophil count (count/volume) 0.0 10*3/uL 0.0-0.1 Comprehensive metabolic panel - 05/28/18 05:48 Serum or plasma sodium measurement (moles/volume) 137 mmol/L 135-145 Serum or plasma potassium measurement (moles/volume) 3.9 mmol/L 3.6-5.0 Serum or plasma chloride measurement (moles/volume) 95 mmol/L 98-107 Carbon dioxide 29 mmol/L 21-32 Serum or plasma anion gap determination (moles/volume) 13 mmol/L 5-14 Serum or plasma urea nitrogen measurement (mass/volume ) 12 mg/dL 7-18 Serum or plasma creatinine measurement (mass/volume) 0.84 mg/dL 0.60-1.30 Serum or plasma urea nitrogen/creatinine mass ratio 14 NRG Serum or plasma creatinine measurement w ith calculation of estimated glomerular filtration rate > NRG Serum or plasma glucose measurement (mass/volume) 230 mg/dL 70-105 Serum or plasma calcium measurement (mass/volume) 9.4 mg/dL 8.5-10.1 Serum or plasma total bilirubin measurement (mass/volu me) 0.3 mg/dL 0.1-1.0 Serum or plasma alkaline phosphatase miguel surement (enzymatic activity/volume) 85 U/L 40-136 Serum or plasma aspartate aminotransfera se measurement (enzymatic activity/volume) 23 U/L 5-34 Serum or plasma alanine aminotransferase measurement (enzymatic activity/volume) 17 U/L 0-55 Serum or plasma protein measurement (mass/volume) 6.8 g/dL 6.4-8.2 Serum or plasma albumin measurement (mass/volume) 3.3 g/dL 3.2-4.5 CALCIUM CORRECTED 10.0 mg/dL 8.5-10.1 Capillary blood glucose measurement by g lucometer (mass/volume) - 05/28/18 05:59 Capillary blood glucose measurement by glucometer (mas s/volume) 228 mg/dL 70-110 Capillary blood glucose measurement by g lucometer (mass/volume) - 05/28/18 11:46 Capillary blood glucose measurement by glucometer (mas s/volume) 188 mg/dL 70-110 Capillary blood glucose measurement by g lucometer (mass/volume) - 05/28/18 15:51 Capillary blood glucose measurement by glucometer (mas s/volume) 145 mg/dL 70-110 Bacterial urine culture - 05/28/18 17:47 Bacterial urine culture [id number] NRG COLONY COUNT >100,000/ML NRG FREE TEXT ENTRY 2 SENSITIVITY RECEIVED 05/30 10:05 NRG FREE TEXT ENTRY 3 ID REPORT RECEIVED 05/29 16:05 NRG RML Sensitivity Panel - 05/28/18 17:47 Gentamicin susceptibility test by minimum inhibitory c oncentration <= NRG Trimethoprim/sulfamethoxazole susceptibi lity test by minimum inhibitoryconcentration <= NRG Levofloxacin susceptibility test by minimum inhibitory concentration 2 NRG Ampicillin susceptibility test by minimum inhibitory c oncentration <= NRG Cefazolin susceptibility test by minimum inhibitory co ncentration <= NRG Ceftriaxone susceptibility test by minimum inhibitory concentration <= NRG Ciprofloxacin susceptibility test by minimum inhibitor y concentration > NRG Meropenem susceptibility test by minimum inhibitory co ncentration <= NRG Nitrofurantoin susceptibility test by mi nimum inhibitory concentration 32 NRG Amoxicillin and clavulanate potassium susc INGRID <= NRG Capillary blood glucose measurement by g lucometer (mass/volume) - 05/28/18 20:30 Capillary blood glucose measurement by glucometer (mas s/volume) 185 mg/dL 70-110 Capillary blood glucose measurement by g lucometer (mass/volume) - 05/29/18 06:10 Capillary blood glucose measurement by glucometer (mas s/volume) 136 mg/dL 70-110 Capillary blood glucose measurement by g lucometer (mass/volume) - 05/29/18 11:24 Capillary blood glucose measurement by glucometer (mas s/volume) 207 mg/dL 70-110 Capillary blood glucose measurement by g lucometer (mass/volume) - 05/29/18 16:44 Capillary blood glucose measurement by glucometer (mas s/volume) 83 mg/dL 70-110 Capillary blood glucose measurement by g lucometer (mass/volume) - 05/29/18 20:14 Capillary blood glucose measurement by glucometer (mas s/volume) 145 mg/dL 70-110 Capillary blood glucose measurement by g lucometer (mass/volume) - 05/30/18 05:15 Capillary blood glucose measurement by glucometer (mas s/volume) 152 mg/dL 70-110 Capillary blood glucose measurement by g lucometer (mass/volume) - 05/30/18 11:35 Capillary blood glucose measurement by glucometer (mas s/volume) 159 mg/dL 70-110 Capillary blood glucose measurement by g lucometer (mass/volume) - 05/30/18 17:56 Capillary blood glucose measurement by glucometer (mas s/volume) 131 mg/dL 70-110 Capillary blood glucose measurement by g lucometer (mass/volume) - 05/30/18 20:12 Capillary blood glucose measurement by glucometer (mas s/volume) 182 mg/dL 70-110 Capillary blood glucose measurement by g lucometer (mass/volume) - 05/31/18 05:40 Capillary blood glucose measurement by glucometer (mas s/volume) 111 mg/dL 70-110 Capillary blood glucose measurement by g lucometer (mass/volume) - 05/31/18 11:48 Capillary blood glucose measurement by glucometer (mas s/volume) 144 mg/dL 70-110 Capillary blood glucose measurement by g lucometer (mass/volume) - 05/31/18 15:52 Capillary blood glucose measurement by glucometer (mas s/volume) 114 mg/dL 70-110 Capillary blood glucose measurement by g lucometer (mass/volume) - 05/31/18 20:47 Capillary blood glucose measurement by glucometer (mas s/volume) 128 mg/dL 70-110 Capillary blood glucose measurement by g lucometer (mass/volume) - 06/01/18 04:26 Capillary blood glucose measurement by glucometer (mas s/volume) 88 mg/dL 70-110 Capillary blood glucose measurement by g lucometer (mass/volume) - 06/01/18 12:42 Capillary blood glucose measurement by glucometer (mas s/volume) 67 mg/dL 70-110 Capillary blood glucose measurement by g lucometer (mass/volume) - 06/01/18 13:58 Capillary blood glucose measurement by glucometer (mas s/volume) 104 mg/dL 70-110 Capillary blood glucose measurement by g lucometer (mass/volume) - 06/01/18 17:41 Capillary blood glucose measurement by glucometer (mas s/volume) 126 mg/dL 70-110 Capillary blood glucose measurement by g lucometer (mass/volume) - 06/01/18 21:53 Capillary blood glucose measurement by glucometer (mas s/volume) 135 mg/dL 70-110 Capillary blood glucose measurement by g lucometer (mass/volume) - 06/02/18 04:23 Capillary blood glucose measurement by glucometer (mas s/volume) 125 mg/dL 70-110 Capillary blood glucose measurement by g lucometer (mass/volume) - 06/02/18 13:18 Capillary blood glucose measurement by glucometer (mas s/volume) 176 mg/dL 70-110 Capillary blood glucose measurement by g lucometer (mass/volume) - 06/02/18 17:38 Capillary blood glucose measurement by glucometer (mas s/volume) 136 mg/dL 70-110 Capillary blood glucose measurement by g lucometer (mass/volume) - 06/02/18 21:53 Capillary blood glucose measurement by glucometer (mas s/volume) 153 mg/dL 70-110 Complete blood count (CBC) with automate d white blood cell (WBC) differential - 06/03/18 05:40 Blood leukocytes automated count (number/volume) 7.5 10*3/uL 4.3-11.0 Blood erythrocytes automated count (number/volume) 3.37 10*6/uL 4.35-5.85 Venous blood hemoglobin measurement (mass/volume) 10.6 g/dL 11.5-16.0 Blood hematocrit (volume fraction) 33 % 35-52 Automated erythrocyte mean corpuscular volume 97 [ foz_us] 80-99 Automated erythrocyte mean corpuscular h emoglobin (mass per erythrocyte) 31 pg 25-34 Automated erythrocyte mean corpuscular h emoglobin concentration measurement (mass/volume) 32 g/dL 32-36 Automated erythrocyte distribution width ratio 13. 2 % 10.0- 14.5 Automated blood platelet count (count/volume) 538 10*3/uL 130-400 Automated blood platelet mean volume measurement 8.5 [foz_us] 7.4-10.4 Automated blood neutrophils/100 leukocytes 59 % 42-75 Automated blood lymphocytes/100 leukocytes 28 % 12-44 Blood monocytes/100 leukocytes 11 % 0-12 Automated blood eosinophils/100 leukocytes 2 % 0-10 Automated blood basophils/100 leukocytes 1 % 0-10 Blood neutrophils automated count (number/volume) 4.4 10*3 1.8-7.8 Blood lymphocytes automated count (number/volume) 2.1 10*3 1.0-4.0 Blood monocytes automated count (number/volume) 0. 9 10*3 0.0-1.0 Automated eosinophil count 0.1 10*3/uL 0 .0-0.3 Automated blood basophil count (count/volume) 0.1 10*3/uL 0.0-0.1 Comprehensive metabolic panel - 06/03/18 05:40 Serum or plasma sodium measurement (moles/volume) 137 mmol/L 135-145 Serum or plasma potassium measurement (moles/volume) 4.7 mmol/L 3.6-5.0 Serum or plasma chloride measurement (moles/volume) 96 mmol/L 98-107 Carbon dioxide 29 mmol/L 21-32 Serum or plasma anion gap determination (moles/volume) 12 mmol/L 5-14 Serum or plasma urea nitrogen measurement (mass/volume ) 15 mg/dL 7-18 Serum or plasma creatinine measurement (mass/volume) 0.86 mg/dL 0.60-1.30 Serum or plasma urea nitrogen/creatinine mass ratio 17 NRG Serum or plasma creatinine measurement w ith calculation of estimated glomerular filtration rate > NRG Serum or plasma glucose measurement (mass/volume) 86 mg/dL 70-105 Serum or plasma calcium measurement (mass/volume) 9.8 mg/dL 8.5-10.1 Serum or plasma total bilirubin measurement (mass/volu me) 0.2 mg/dL 0.1-1.0 Serum or plasma alkaline phosphatase miguel surement (enzymatic activity/volume) 79 U/L 40-136 Serum or plasma aspartate aminotransfera se measurement (enzymatic activity/volume) 20 U/L 5-34 Serum or plasma alanine aminotransferase measurement (enzymatic activity/volume) 11 U/L 0-55 Serum or plasma protein measurement (mass/volume) 7.4 g/dL 6.4-8.2 Serum or plasma albumin measurement (mass/volume) 3.7 g/dL 3.2-4.5 CALCIUM CORRECTED 10.0 mg/dL 8.5-10.1 Capillary blood glucose measurement by g lucometer (mass/volume) - 06/03/18 06:10 Capillary blood glucose measurement by glucometer (mas s/volume) 84 mg/dL 70-110 Capillary blood glucose measurement by g lucometer (mass/volume) - 06/03/18 11:22 Capillary blood glucose measurement by glucometer (mas s/volume) 116 mg/dL 70-110 Capillary blood glucose measurement by g lucometer (mass/volume) - 06/03/18 16:33 Capillary blood glucose measurement by glucometer (mas s/volume) 104 mg/dL 70-110 Capillary blood glucose measurement by g lucometer (mass/volume) - 06/03/18 20:15 Capillary blood glucose measurement by glucometer (mas s/volume) 191 mg/dL 70-110 Capillary blood glucose measurement by g lucometer (mass/volume) - 06/04/18 05:25 Capillary blood glucose measurement by glucometer (mas s/volume) 110 mg/dL 70-110 Capillary blood glucose measurement by g lucometer (mass/volume) - 06/04/18 11:20 Capillary blood glucose measurement by glucometer (mas s/volume) 154 mg/dL 70-110 Capillary blood glucose measurement by g lucometer (mass/volume) - 06/04/18 16:13 Capillary blood glucose measurement by glucometer (mas s/volume) 140 mg/dL 70-110 Capillary blood glucose measurement by g lucometer (mass/volume) - 06/04/18 20:00 Capillary blood glucose measurement by glucometer (mas s/volume) 215 mg/dL 70-110 Capillary blood glucose measurement by g lucometer (mass/volume) - 06/05/18 05:40 Capillary blood glucose measurement by glucometer (mas s/volume) 163 mg/dL 70-110 Capillary blood glucose measurement by g lucometer (mass/volume) - 06/05/18 11:50 Capillary blood glucose measurement by glucometer (mas s/volume) 132 mg/dL 70-110 Capillary blood glucose measurement by g lucometer (mass/volume) - 06/05/18 17:12 Capillary blood glucose measurement by glucometer (mas s/volume) 113 mg/dL 70-110 Capillary blood glucose measurement by g lucometer (mass/volume) - 06/05/18 21:54 Capillary blood glucose measurement by glucometer (mas s/volume) 339 mg/dL 70-110 Capillary blood glucose measurement by g lucometer (mass/volume) - 06/05/18 21:55 Capillary blood glucose measurement by glucometer (mas s/volume) 324 mg/dL 70-110 Capillary blood glucose measurement by g lucometer (mass/volume) - 06/06/18 04:56 Capillary blood glucose measurement by glucometer (mas s/volume) 125 mg/dL 70-110 Capillary blood glucose measurement by g lucometer (mass/volume) - 06/06/18 11:35 Capillary blood glucose measurement by glucometer (mas s/volume) 137 mg/dL 70-110 Capillary blood glucose measurement by g lucometer (mass/volume) - 06/06/18 16:33 Capillary blood glucose measurement by glucometer (mas s/volume) 141 mg/dL 70-110 Capillary blood glucose measurement by g lucometer (mass/volume) - 06/06/18 21:15 Capillary blood glucose measurement by glucometer (mas s/volume) 221 mg/dL 70-110 Capillary blood glucose measurement by g lucometer (mass/volume) - 06/07/18 06:10 Capillary blood glucose measurement by glucometer (mas s/volume) 110 mg/dL 70-110 CULTURE, URINE - 08/05/18 14:44 CULTURE, URINE, ROUTINE SEE NOTE NRG LIPID PANEL - 12/16/18 11:13 CHOLESTEROL, TOTAL 177 mg/dL <200 HDL CHOLESTEROL 47 mg/dL >50 TRIGLYCERIDES 118 mg/dL <150 LDL-CHOLESTEROL 107 mg/dL (calc) NRG CHOL/HDLC RATIO 3.8 (calc) <5.0 NON HDL CHOLESTEROL 130 mg/dL (calc) <13 0 CMP - 12/16/18 11:13 GLUCOSE 176 mg/dL 65-99 UREA NITROGEN (BUN) 16 mg/dL 7-25 CREATININE 0.95 mg/dL 0.50-0.99 eGFR NON-AFR. STATELESS 61 mL/min/1.73m2 > OR = 60 eGFR 71 mL/min/1.73m2 > OR = 60 BUN/CREATININE RATIO NOT APPLICABLE (calc) 6-22 SODIUM 138 mmol/L 135-146 POTASSIUM 3.1 mmol/L 3.5-5.3 CHLORIDE 92 mmol/L 98-110 CARBON DIOXIDE 37 mmol/L 20-32 CALCIUM 9.2 mg/dL 8.6-10.4 PROTEIN, TOTAL 7.2 g/dL 6.1-8.1 ALBUMIN 3.5 g/dL 3.6-5.1 GLOBULIN 3.7 g/dL (calc) 1.9-3.7 ALBUMIN/GLOBULIN RATIO 0.9 (calc) 1.0-2. 5 BILIRUBIN, TOTAL 0.4 mg/dL 0.2-1.2 ALKALINE PHOSPHATASE 111 U/L 33-130 AST 23 U/L 10-35 ALT 17 U/L 6-29 A1C - 12/16/18 11:13 HEMOGLOBIN A1c 8.2 % of total Hgb <5.7 CULTURE, URINE - 12/17/18 12:21 CULTURE, URINE, ROUTINE SEE NOTE NRG Complete blood count (CBC) with automate d white blood cell (WBC) differential - 03/21/19 17:50 Blood leukocytes automated count (number/volume) 8.4 10*3/uL 4.3-11.0 Blood erythrocytes automated count (number/volume) 4.22 10*6/uL 4.35-5.85 Venous blood hemoglobin measurement (mass/volume) 12.8 g/dL 11.5-16.0 Blood hematocrit (volume fraction) 40 % 35-52 Automated erythrocyte mean corpuscular volume 94 [ foz_us] 80-99 Automated erythrocyte mean corpuscular h emoglobin (mass per erythrocyte) 30 pg 25-34 Automated erythrocyte mean corpuscular h emoglobin concentration measurement (mass/volume) 32 g/dL 32-36 Automated erythrocyte distribution width ratio 13. 7 % 10.0- 14.5 Automated blood platelet count (count/volume) 398 10*3/uL 130-400 Automated blood platelet mean volume measurement 9.0 [foz_us] 7.4-10.4 Automated blood neutrophils/100 leukocytes 64 % 42-75 Automated blood lymphocytes/100 leukocytes 25 % 12-44 Blood monocytes/100 leukocytes 9 % 0-12 Automated blood eosinophils/100 leukocytes 1 % 0-10 Automated blood basophils/100 leukocytes 1 % 0-10 Blood neutrophils automated count (number/volume) 5.4 10*3 1.8-7.8 Blood lymphocytes automated count (number/volume) 2.1 10*3 1.0-4.0 Blood monocytes automated count (number/volume) 0. 7 10*3 0.0-1.0 Automated eosinophil count 0.1 10*3/uL 0 .0-0.3 Automated blood basophil count (count/volume) 0.1 10*3/uL 0.0-0.1 Comprehensive metabolic panel - 03/21/19 17:50 Serum or plasma sodium measurement (moles/volume) 133 mmol/L 135-145 Serum or plasma potassium measurement (moles/volume) 4.1 mmol/L 3.6-5.0 Serum or plasma chloride measurement (moles/volume) 87 mmol/L 98-107 Carbon dioxide 32 mmol/L 21-32 Serum or plasma anion gap determination (moles/volume) 14 mmol/L 5-14 Serum or plasma urea nitrogen measurement (mass/volume ) 22 mg/dL 7-18 Serum or plasma creatinine measurement (mass/volume) 1.16 mg/dL 0.60-1.30 Serum or plasma urea nitrogen/creatinine mass ratio 19 NRG Serum or plasma creatinine measurement w ith calculation of estimated glomerular filtration rate 46 NRG Serum or plasma glucose measurement (mass/volume) 274 mg/dL 70-105 Serum or plasma calcium measurement (mass/volume) 10.0 mg/dL 8.5-10.1 Serum or plasma total bilirubin measurement (mass/volu me) 0.2 mg/dL 0.1-1.0 Serum or plasma alkaline phosphatase miguel surement (enzymatic activity/volume) 113 U/L 40-136 Serum or plasma aspartate aminotransfera se measurement (enzymatic activity/volume) 30 U/L 5-34 Serum or plasma alanine aminotransferase measurement (enzymatic activity/volume) 18 U/L 0-55 Serum or plasma protein measurement (mass/volume) 7.7 g/dL 6.4-8.2 Serum or plasma albumin measurement (mass/volume) 3.9 g/dL 3.2-4.5 CALCIUM CORRECTED 10.1 mg/dL 8.5-10.1 TROPONIN I FS - 03/21/19 18:19 TROPONIN I FS < 0.30 <0.30 CULTURE, URINE - 04/08/19 15:47 CULTURE, URINE, ROUTINE SEE NOTE NRG Encounters ACCT No. Visit Date/Time Discharge Status Pt. Type Provider Facility Loc./Unit Complaint [id number] 04/08/2019 15:15:00 04/08/2019 23:59: 59 CLS Outpatient FRANKY WADE [facility] [id number] 04/08/2019 15:15:00 Document Registration [id number] 12/17/2018 10:30:00 Document Registration [id number] 12/16/2018 11:15:00 Document Registration [id number] 08/05/2018 14:15:00 Document Registration [id number] 03/21/2019 17:35:00 19:09:00 DIS Outpatient MARY CARMEN ESCALANTE DO Via [facility] ER FS GEN WEAKNESS [id number] 11/15/2018 12:39:00 23:59:59 CLS Outpatient LOREN GIFFORD MD Via [facility] RAD FS M43.16 [id number] 09/23/2018 17:40:00 019 23:59:59 CLS Outpatient SELF FRANKY PRATER Via [facility] RAD FS [id number] 05/27/2018 17:40:00 019 10:35:00 DIS Inpatient MALIKA VÁZQUEZ DO [facility] IRF LUMBAR STENOSIS WITH RA DICULOPATHY
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
== END 2019-03-21 19:09 | disposition home or self-care (01) ==
LOC: EDUNIT# 17:34 → ER FS 17:35
DX: R53.1 Weakness (principal); I10 Essential (primary) hypertension; E11.40 Type 2 diabetes mellitus with diabetic neuropathy, unspecified; K21.9 Gastro-esophageal reflux disease without esophagitis; Z88.1 Allergy status to other antibiotic agents; Z88.2 Allergy status to sulfonamides; Z79.52 Long term (current) use of systemic steroids; Z79.51 Long term (current) use of inhaled steroids; Z79.84 Long term (current) use of oral hypoglycemic drugs; Z87.891 Personal history of nicotine dependence
CPT/HCPCS: 36415; 51702; 71045; 80053; 84484; 85025; 93005; 96360

== ENCOUNTER 2019-08-02 14:22 | Inpatient (IN) | payer MEDICARE, OTHER ==
[~2019-08-02] VITALS: Ht 160 cm; Wt 59.9 kg
[~2019-08-02 14:22] MED LIST changes: +METF500T19 PO; -METF500T8 PO; -MIDO5TAB PO; +MIDO5TAB3 PO; -TRAM50TA2 PO; +TRM50T PO
[2019-08-02] MEDS ORDERED: NS IV 1000 ML 1,000 ML IV SCH (14:24)
[2019-08-02] MEDS ORDERED: PANTOPRAZOLE 40 MG (PROTONIX) VIAL ONE (14:27)
--- OUTSIDE RECORDS SUMMARY | 2019-08-02 14:27 | XMS REPORT | Continuity of Care Document ---
Author Organization Unknown Address Unknown Phone Unavailable Allergies Active Description Code Type Severity Reaction Onset Reported/Identified Relationship to Patient Clinical Status Yes amoxicillin [id number] Drug Aller gy Unknown N/A 05/27/2018 Yes clavulanic acid [id number] D rug Allergy Unknown N/A 05/27/2018 Yes moxifloxacin [id number] Drug Allergy Unknown N/A 05/27/2018 Yes No Known Drug Allergies [id number] Drug Allergy Unknown N/A 05/27/2018 Yes sulfamethoxazole [id number] Drug Allergy Unknown N/A 05/27/2018 Yes trimethoprim [id number] Drug Allergy Unknown N/A 05/27/2018 Medications There [...] GASTRO-ESOPHAGEAL REFLUX DISEASE WITHOUT 06/07/2018 VÁZQUEZ DO, MALIKA Ot K59.00 CONSTIPATION, UNSPECIFIED 06/07/2018 VÁZQUEZ DO, [...] LOREN GIFFORD MD Ot Z98.1 ARTHRODESIS STATUS 11/20/2018 LOREN [...] Ot W19.XXXA UNSPECIFIED FALL, INITIAL ENCOUNTER 12/06/2018 OLREN GIFFORD MD Ot Z98.1 ARTHRODESIS STATUS 03/21/2019 ROVENSTINE DO, MARY CARMEN Lucero Ot E11.40 TYPE 2 DIABETES MELLITUS WITH DIABETIC N 03/21/2019 ROVENSTINE DO, MARY CARMEN Lucero Ot I10 ESSENTIAL (PRIMARY) HYPERTENSION 03/21/2019 ROVENSTINE DO, MARY CARMEN Lucero Ot K21.9 GASTRO-ESOPHAGEAL REFLUX DISEASE WITHOUT 03/21/2019 ROVENSTINE DO, MARY CARMEN Lucero Ot R53.1 WEAKNESS 03/21/2019 ROVENSTINE DOMARY CARMEN Ot Z79.51 RESIDENTIAL (CURRENT) USE OF INHALED STERO 03/21/2019 ROVENSTINE DO, MARY CARMEN L Ot Z79.52 RESIDENTIAL (CURRENT) USE OF SYSTEMIC STER 03/21/2019 ROVENSTINE DO, MARY CARMEN Lucero Ot Z79.84 RESIDENTIAL (CURRENT) USE OF ORAL HYPOGLYC 03/21/2019 ROVENSTINE DO, MARY CARMEN Lucero Ot Z87.891 PERSONAL HISTORY OF NICOTINE DEPENDENCE 03/21/2019 ROVENSTINE DO, MARY CARMEN Lucero Ot Z88.1 ALLERGY STATUS TO OTHER ANTIBIOTIC AGENT 03/21/2019 ROVENSTINE DO, MARY CARMEN L Ot Z88.2 ALLERGY STATUS TO SULFONAMIDES STATUS 03/26/2019 ROVENSTINE DO, MARY CARMEN Lucero Ot E11.40 TYPE 2 DIABETES MELLITUS WITH DIABETIC N 03/26/2019 ROVENSTINE DO, MARY CARMEN L Ot I10 ESSENTIAL (PRIMARY) HYPERTENSION 03/26/2019 ROVENSTINE DO, MARY CARMEN Lucero Ot K21.9 GASTRO-ESOPHAGEAL REFLUX DISEASE WITHOUT 03/26/2019 ROVENSTINE DOMARY CARMEN Ot R53.1 WEAKNESS 03/26/2019 ROVENSTINE DO, MARY CARMEN Lucero Ot Z79.51 PIN MACHINE TENDER (CURRENT) USE OF INHALED STERO 03/26/2019 ROVENSTINE DO, MARY CARMEN L Ot Z79.52 RESIDENTIAL (CURRENT) USE OF SYSTEMIC STER 03/26/2019 ROVENSTINE DO, MARY CARMEN L Ot Z79.84 PIN MACHINE TENDER (CURRENT) USE OF ORAL HYPOGLYC 03/26/2019 ROVENSTINE DO, MARY CARMEN Lucero Ot Z87.891 PERSONAL HISTORY OF NICOTINE DEPENDENCE 03/26/2019 ROVENSTINE DO, MARY CARMEN L Ot Z88.1 ALLERGY STATUS TO OTHER ANTIBIOTIC AGENT 03/26/2019 ROVENSTINE DO, MARY CARMEN Lucero Ot Z88.2 ALLERGY STATUS TO SULFONAMIDES STATUS 03/31/2019 ROVENSTINE DO MARY CARMEN Jazmine Ot E11.40 TYPE 2 DIABETES MELLITUS WITH DIABETIC N 03/31/2019 ROVENSTINE DOMARY CARMEN Ot I10 ESSENTIAL (PRIMARY) HYPERTENSION 03/31/2019 ROVENSTINE DOMARY CARMEN Ot K21.9 GASTRO-ESOPHAGEAL REFLUX DISEASE WITHOUT 03/31/2019 ROVENSTINE DOMARY CARMEN Ot R53.1 WEAKNESS 03/31/2019 ROVENSTINE DOMARY CARMEN Ot Z79.51 RESIDENTIAL (CURRENT) USE OF INHALED STERO 03/31/2019 MAGALYVENSTINE DOMARY CARMEN Ot Z79.52 PIN MACHINE TENDER (CURRENT) USE OF SYSTEMIC STER 03/31/2019 MAGALYVENSTINE DOMARY CARMEN Ot Z79.84 RESIDENTIAL (CURRENT) USE OF ORAL HYPOGLYC 03/31/2019 ROVENSTINE DO MARY CARMEN Jazmine Ot Z87.891 PERSONAL HISTORY OF NICOTINE DEPENDENCE 03/31/2019 ROVENSTINE DO MARY CARMEN L Ot Z88.1 ALLERGY STATUS TO OTHER ANTIBIOTIC AGENT 03/31/2019 ROVENSTINE DOMARY CARMEN Ot Z88.2 ALLERGY STATUS TO SULFONAMIDES STATUS [...] culture - 05/28/18 17:47 Bacterial urine culture [id number] NRG COLONY COUNT >100,000/ML NRG FREE TEXT ENTRY 2 SENSITIVITY RECEIVED 05/30 10:05 NRG FREE TEXT ENTRY 3 ID REPORT RECEIVED 05/29 16:05 NR RML Sensitivity Panel - 05/28/18 17:47 Gentamicin [...] 7-25 CREATININE 0.95 mg/dL 0.50-0.99 eGFR NON-AFR. MALIAN 61 mL/min/1.73m2 > OR = 60 eGFR [...] 15:47 CULTURE, URINE, ROUTINE SEE NOTE NRG CULTURE, URINE - 07/14/19 17:04 CULTURE, URINE, ROUTINE SEE NOTE NRG Encounters ACCT No. Visit Date/Time Discharge Status Pt. Type Provider Facility Loc./Unit Complaint [id number] 07/01/2019 13:45:00 07/01/2019 23:59: 59 CLS Outpatient FRANKY WADE [facility] [id number] 07/14/2019 17:00:00 Document Registration [id number] 04/08/2019 15:15:00 Document Registration [id number] 12/17/2018 10:30:00 Document Registration [id number] 12/16/2018 11:15:00 Document Registration [id number] 08/05/2018 14:15:00 Document Registration [id number] 03/21/2019 17:35:00 19:09:00 DIS Emergency ROVENSTMARY CARMEN BANDA DO Via [facility] ER FS GEN WEAKNESS [id number] 11/15/2018 12:39:00 23:59:59 CLS Outpatient LOREN GIFFORD MD Via [facility] RAD FS M43.16 [id number] 09/23/2018 17:40:00 23:59:59 CLS Outpatient FRANKY WADE MD Via [facility] RAD FS [id number] 05/27/2018 17:40:00 10:35:00 DIS Inpatient MALIKA VÁZQUEZ DO, V ia [facility] IRF LUMBAR STENOSIS WITH RA DICULOPATHY
[2019-08-02] MEDS ORDERED: ONDANSETRON 4 MG/2 ML (SDV) Z0FRAN IVP ONE ×2 (14:30→15:30)
--- NOTE | 2019-08-02 14:31 | ED General ---
General Stated Complaint: NAUSEA,VOMITING,WEAKNESS Source of Information: Patient Exam Limitations: No Limitations History of Present Illness Date Seen by Provider: Aug 02, 2019 Time Seen by Provider: 14:19 Initial Comments Patient presents ER by private conveyance from home with chief complaint that since yesterday she's felt poorly and today it got worse with nausea vomiting and generalized body aches malaise. She denies any fever cough shortness of breath or chills. She says usually when this happens because she has a bladder infection. She denies dysuria discharge abdominal pain. She had her gallbladder out historically. She having no diarrhea or constipation. She is diabetic but has not been checking her sugars eating or drinking today because of her symptoms. The spouse perform straight catheters at home secondary to urinary retention. Allergies and Home Medications Allergies Coded Allergies: amoxicillin (Verified Allergy, Unknown, 05/27/18) clavulanic acid (Verified Allergy, Unknown, 05/27/18) moxifloxacin (Verified Allergy, Unknown, 05/27/18) sulfamethoxazole (Verified Allergy, Unknown, 05/27/18) trimethoprim (Verified Allergy, Unknown, 05/27/18) Home Medications Cholecalciferol (Vitamin D3) 2,000 Unit Capsule, 2,000 UNIT PO DAILY, (Reported) Colestipol HCl 1 Gm Tablet, 1 GM PO BID, (Reported) Cyanocobalamin 1,000 Mcg/Ml Inj, 1,000 MG INJ MONTHLY, (Reported) Cyclobenzaprine HCl 10 Mg Tablet, 5 MG PO TID Prescribed by: MALIKA VÁZQUEZ on 06/07/18 0945 Diphenhydramine HCl 25 Mg Capsule, 25-50 MG PO BID PRN for SLEEP/ITCHING, (Reported) Droxidopa 200 Mg Capsule, 200 MG PO TID, (Reported) Estradiol 42.5 Gm Cream.appl, VG MoWeFr, (Reported) Fludrocortisone Acetate 0.1 Mg Tab, 0.2 MG PO DAILY, (Reported) TAKES 2 (0.1MG) TABLETS Fluticasone Propionate 9.9 Ml Wright.susp, 1 SPRAY NS DAILY PRN for ALLERGIES, (Reported) Gabapentin 100 Mg Capsule, 100 MG PO TID, (Reported) Glipizide 10 Mg Tab.er.24, 5 MG PO DAILY, (Reported) Hydrocodone Bit/Acetaminophen 1 Tab Tab, 1 TAB PO Q4H PRN for PAIN-SEVERE Prescribed by: MALIKA VÁZQUEZ on 06/07/18 0945 Lipase/Protease/Amylase 1 Each Capsule.dr, 24,000 UNITS PO QID, (Reported) Magnesium Oxide 500 Mg Capsule, 500 MG PO DAILY, (Reported) Metformin HCl 500 Mg Tab.er.24h, 500 MG PO BID, (Reported) Midodrine HCl 5 Mg Tablet, 5 MG PO TID, (Reported) LAST FILLED 11-01-17 #270 Ondansetron 4 Mg Tab.rapdis, 4 MG PO Q6H PRN for NAUSEA/VOMITING Prescribed by: MALIKA VÁZQUEZ on 06/07/18 0945 Potassium Chloride 10 Meq Tab.er.prt, 10 MEQ PO BID, (Reported) Promethazine HCl 25 Mg Tablet, 25 MG PO Q6H PRN for NAUSEA/VOMITING-2ND LINE, ( Reported) Ranitidine HCl 150 Mg Tablet, 150 MG PO DAILY, (Reported) Tramadol HCl 50 Mg Tablet, 50 MG PO Q6H PRN for PAIN-MODERATE Prescribed by: MALIKA VÁZQUEZ on 06/07/18 0945 Patient Home Medication List Home Medication List Reviewed: Yes Review of Systems Review of Systems Constitutional: No chills, No diaphoresis, No fever; malaise EENTM: No ear discharge, No ear pain Respiratory: No cough, No short of breath Cardiovascular: No chest pain, No edema Gastrointestinal: No abdominal pain, No constipation, No diarrhea; nausea, vo miting Genitourinary: No discharge, No dysuria Musculoskeletal: No back pain, No joint pain All Other Systems Reviewed Negative Unless Noted: Yes Past Qsekrpr-Pivlju-Mppunv Hx Patient Social History Alcohol Use: Denies Use Recreational Drug Use: No Smoking Status: Never a Smoker 2nd Hand Smoke Exposure: No Recent Hopitalizations: Yes Immunizations Up To Date Date of Pneumonia Vaccine: Mar 09, 2015 Date of Influenza Vaccine: May 27, 2018 Past Medical History Gallbladder, Orthopedic Respiratory: No Currently Using CPAP: No Currently Using BIPAP: No Cardiac: Yes (orthostaic hypotension) Hypertension, Hypotension, Palpitations Neurological: Yes Neuropathy Genitourinary: Yes (must be straight cath) Neurogenic Bladder Gastrointestinal: Yes Gastroesophageal Reflux Musculoskeletal: Yes (lumbar stenosis with disc herniation) Arthritis, Chronic Back Pain Endocrine: Yes (neuropathy) Diabetes, Non-Insulin dep HEENT: Yes Cataract Loss of Vision: Denies Hearing Impairment: Denies Cancer: No Psychosocial: No Integumentary: No Blood Disorders: No Adverse Reaction/Blood Tranf: No Family Medical History Completed stroke 19 MOTHER (cva) G8 SISTER (cva) Diabetes mellitus 19 FATHER (neurpathy) Headache disorder 19 MOTHER (migraines) G8 BROTHER (migraines) G8 SISTER (migraines) Neoplasm 19 MOTHER (cancer) Diabetes Physical Exam Vital Signs Capillary Refill : Height, Weight, BMI Height: 5'2.00" Weight: 144lbs. 0.9oz. 65.604364wl; 21.00 BMI Method: General Appearance: Anxious, Mild Distress (heart rate of 90) Eyes: Bilateral Eye Normal Inspection, Bilateral Eye PERRL, Bilateral Eye EOMI HEENT: PERRL/EOMI; No Pharynx Normal, No Moist Mucous Membranes Neck: Full Range of Motion, Normal Inspection, Non Tender, Supple Respiratory: Lungs Clear, Normal Breath Sounds, No Accessory Muscle Use, No Respiratory Distress Cardiovascular: Regular Rate, Rhythm, No Edema, Normal Peripheral Pulses Gastrointestinal: Normal Bowel Sounds, Non Tender, Soft Extremity: Normal Capillary Refill, Normal Inspection, No Pedal Edema Neurologic/Psychiatric: Alert, Oriented x3, No Motor/Sensory Deficits Skin: Normal Color, Warm/Dry Focused Exam Lactate Level 08/02/19 15:10: Lactic Acid Level Laboratory Tests Test 08/02/19 15:10 Progress/Results/Core Measures Suspected Sepsis SIRS Temperature: Pulse: Respiratory Rate: Laboratory Tests 08/02/19 14:29: White Blood Count 14.2H Blood Pressure / Mean: 08/02/19 15:10: Laboratory Tests 08/02/19 14:29: Creatinine 0.88, INR Comment 1.0, Platelet Count 417H, Total Bilirubin 0.6 Results/Orders Lab Results Laboratory Tests Test 08/02/19 14:29 08/02/19 14:31 08/02/19 14:42 08/02/19 15:10 Range/Units White Blood Count 14.2 H 4.3-11.0 10^3/uL Red Blood Count 4.32 L 4.35-5.85 10^6/uL Hemoglobin 13.0 11.5-16.0 G/DL Hematocrit 40 35-52 % Mean Corpuscular Volume 91 80-99 FL Mean Corpuscular Hemoglobin 30 25-34 PG Mean Corpuscular Hemoglobin Concent 33 32-36 G/DL Red Cell Distribution Width 12.6 10.0-14.5 % Platelet Count 417 H 130-400 10^3/uL Mean Platelet Volume 9.3 7.4-10.4 FL Neutrophils (%) (Auto) 84 H 42-75 % Lymphocytes (%) (Auto) 11 L 12-44 % Monocytes (%) (Auto) 5 0-12 % Eosinophils (%) (Auto) 0 0-10 % Basophils (%) (Auto) 0 0-10 % Neutrophils # (Auto) 11.9 H 1.8-7.8 X 10^3 Lymphocytes # (Auto) 1.5 1.0-4.0 X 10^3 Monocytes # (Auto) 0.8 0.0-1.0 X 10^3 Eosinophils # (Auto) 0.0 0.0-0.3 10^3/uL Basophils # (Auto) 0.1 0.0-0.1 10^3/uL Neutrophils % (Manual) 79 % Lymphocytes % (Manual) 10 % Monocytes % (Manual) 9 % Eosinophils % (Manual) 0 % Basophils % (Manual) 0 % Band Neutrophils 2 % Hypochromasia SLIGHT Prothrombin Time 13.6 12.2-14.7 SEC INR Comment 1.0 0.8-1.4 Activated Partial Thromboplast Time 26 24-35 SEC Sodium Level 138 135-145 MMOL/L Potassium Level 4.0 3.6-5.0 MMOL/L Chloride Level 89 L 98-107 MMOL/L Carbon Dioxide Level 28 21-32 MMOL/L Anion Gap 21 H 5-14 MMOL/L Blood Urea Nitrogen 21 H 7-18 MG/DL Creatinine 0.88 0.60-1.30 MG/DL Estimat Glomerular Filtration Rate > 60 BUN/Creatinine Ratio 24 Glucose Level 356 H 70-105 MG/DL Calcium Level 9.9 8.5-10.1 MG/DL Corrected Calcium 9.7 8.5-10.1 MG/DL Total Bilirubin 0.6 0.1-1.0 MG/DL Aspartate Amino Transf (AST/SGOT) 23 5-34 U/L Alanine Aminotransferase (ALT/SGPT) 18 0-55 U/L Alkaline Phosphatase 95 40-136 U/L Troponin I < 0.30 <0.30 NG/ML C-Reactive Protein 0.44 <0.50 MG/DL Total Protein 8.1 6.4-8.2 GM/DL Albumin 4.3 3.2-4.5 GM/DL Lipase 15 8-78 U/L Glucometer 342 H 70-110 MG/DL Urine Color YELLOW Urine Clarity CLOUDY H Urine pH 6.0 5-9 Urine Specific [place] 1.025 H 1.016-1.022 Urine Protein 1+ H NEGATIVE Urine Glucose (UA) 1+ H NEGATIVE Urine Ketones 1+ H NEGATIVE Urine Nitrite NEGATIVE NEGATIVE Urine Bilirubin NEGATIVE NEGATIVE Urine Urobilinogen 0.2 < = 1.0 MG/DL Urine Leukocyte Esterase TRACE H NEGATIVE Urine RBC (Auto) TRACE H NEGATIVE Urine RBC 5-10 H /HPF Urine WBC 25-50 H /HPF Urine Squamous Epithelial Cells NONE /HPF Urine Crystals NONE /LPF Urine Bacteria LARGE H /HPF Urine Casts NONE /LPF Urine Mucus NEGATIVE /LPF Urine Culture Indicated YES My Orders Orders - YOLANDA NARANJO Ondansetron Injection (Zofran Injectio (08/02/19 14:30) Ed Iv/Invasive Line Start (08/02/19 14:24) Ns Iv 1000 Ml (Sodium Chloride 0.9%) (08/02/19 14:24) Cbc With Automated Diff (08/02/19 14:24) Comprehensive Metabolic Panel (08/02/19 14:24) Crp Fs (08/02/19 14:24) Accucheck Stat ONCE (08/02/19 14:24) Ekg Tracing (08/02/19 14:24) Continuous Ekg Monitoring (08/02/19 14:24) Troponin I Fs (08/02/19 14:24) Chest 1 View Ap/Pa Only (08/02/19 14:24) Pantoprazole Injection (Protonix Injecti (08/02/19 14:45) Lipase (08/02/19 14:31) Pantoprazole Injection (Protonix Injecti (08/02/19 14:27) Insulin (Regular) Human (Humulin R (Per (08/02/19 14:45) Straight Cath For Spec.-Adult (08/02/19 14:39) Ua Culture If Indicated (08/02/19 14:39) Manual Differential (08/02/19 14:29) Blood Culture (08/02/19 14:49) Protime With Inr (08/02/19 14:49) Partial Thromboplastin Time (08/02/19 14:49) Ed Iv/Invasive Line Start (08/02/19 14:49) Vital Signs Adult Sepsis Patie Q15M (08/02/19 14:49) O2 (08/02/19 14:49) Remove Rings In Anticipation O (08/02/19 14:49) Lactic Acid Analyzer (08/02/19 14:49) Ceftriaxone For Iv Use (Rocephin For I (08/02/19 15:00) Ed Iv/Invasive Line Start (08/02/19 14:49) Ns Iv 500 Ml (Sodium Chloride 0.9%) (08/02/19 14:49) Urine Culture (08/02/19 14:42) Ondansetron Injection (Zofran Injectio (08/02/19 15:30) Medications Given in ED Current Medications Medications Dose Ordered Sig/Chelle Route Start Time Stop Time Status Last Admin Dose Admin Ceftriaxone Sodium 1000 mg/ Sterile Water 10 ml @ 200 mls/hr ONCE ONCE IV 08/02/19 15:00 08/02/19 15:02 DC 08/02/19 15:19 200 MLS/HR Insulin Human Regular 5 unit ONCE ONCE SC 08/02/19 14:45 08/02/19 14:46 DC 08/02/19 15:00 5 UNIT Ondansetron HCl 4 mg ONCE ONCE IVP 08/02/19 14:30 08/02/19 14:31 DC 08/02/19 14:34 4 MG Ondansetron HCl 4 mg ONCE ONCE IVP 08/02/19 15:30 08/02/19 15:31 DC 08/02/19 15:32 4 MG Pantoprazole 40 mg ONCE ONCE IV 08/02/19 14:45 08/02/19 14:46 DC 08/02/19 14:34 40 MG Sodium Chloride 500 ml @ 0 mls/hr Q0M ONCE IV 08/02/19 14:49 08/02/19 14:51 DC 08/02/19 15:19 0 MLS/HR Vital Signs/I&O Capillary Refill : Progress Note : Time: 14:30 Progress Note UTI, Gastroenteritis, pancreatitis, atypical angina, viral syndrome? Plan to give her some fluids check her sugar check some labs and urine. Zofran for her nausea. Pantoprazole IV. Plan to obtain urine by straight catheter. Blood sugars 342 so we are going to give her 5 units of regular insulin. She is on glimepiride. Septic workup, Rocephin and 1500 cc would be between 20 and 30 mL/kg. ECG Initial ECG Impression Date: Aug 02, 2019 Initial ECG Impression Time: 14:27 Initial ECG Rate: 98 Initial ECG Rhythm: Normal Sinus Initial ECG Intervals: QT (496) Initial ECG Impression: Normal, Nonspecific Changes Initial ECG Comparisson: Unchanged Comment Sinus rhythm with left bundle branch block and mild prolonged QTC 496 ms. 0 points of Sgarbossa's Criteria. No clinically relevant ST elevation or depression. Diagnostic Imaging Diagonstic Imaging: Xray Plain Films/CT/US/NM/MRI: chest (1v) Comments NAME: JORDANA GARCIA [facility] REC#: [id number] PT STATUS: REG ER : 1950 PHYSICIAN: YOLANDA NARANJO MD ADMIT DATE: 08/02/19/ER FS Draft Date of Exam:08/02/19 CHEST 1 VIEW AP/PA ONLY Indication: Dyspnea with nausea and vomiting. Comparison: 03/21/2019. Discussion: Single portable upright view of the chest was obtained. Elevated right hemidiaphragm is again noted. Normal heart size. No new consolidation, pleural fluid or pneumothorax. No osseous abnormality. Impression: No acute cardiopulmonary process. Dictated on workstation # [id number] Dict: 08/02/19 1502 Trans: 08/02/19 1506 [facility] [id number] Interpreted by: POLO TRINIDAD MD Electronically signed by: Reviewed: Reviewed by Me Departure Communication (Admissions) Time/Spoke to Admitting Phy: 15:30 Dr Rodriguez: She agrees to admit the patient for antibiotics and fluids. Impression Primary Impression: Acute UTI Additional Impression: Sepsis Qualified Codes: A41.9 - Sepsis, unspecified organism Disposition: ADMITTED INPATIENT Condition: Stable Admissions Decision to Admit Reason: Admit from ER (General) Decision to Admit/Date: Aug 02, 2019 Time/Decision to Admit Time: 15:20 Departure-Patient Inst. Referrals: SELF,FRANKY PRATER (PCP/Family) Primary Care Physician YOLANDA NARANJO Aug 02, 2019 14:31
[2019-08-02 14:42] LABS: BASOPHILS # (AUTO) 0.1 10^3/uL (0.0-0.1); BASOPHILS % (AUTO) 0 % (0-10); EOSINOPHILS % (AUTO) 0 % (0-10); HEMATOCRIT 40 % (35-52); LYMPHOCYTES # (AUTO) 1.5 X 10^3 (1.0-4.0); LYMPHOCYTES % (AUTO) 11 % (12-44); MEAN CORPUSCULAR HEMOGLOBIN 30 PG (25-34); MEAN CORPUSCULAR HGB CONC 33 G/DL (32-36); MEAN CORPUSCULAR VOLUME 91 FL (80-99); MEAN PLATELET VOLUME 9.3 FL (7.4-10.4); MONOCYTES # (AUTO) 0.8 X 10^3 (0.0-1.0); MONOCYTES % (AUTO) 5 % (0-12); NEUTROPHILS # (AUTO) 11.9 X 10^3 (1.8-7.8); NEUTROPHILS % (AUTO) 84 % (42-75); PLATELET COUNT 417 10^3/uL (130-400); RED CELL DISTRIBUTION WIDTH 12.6 % (10.0-14.5); WHITE BLOOD COUNT 14.2 10^3/uL (4.3-11.0)
[2019-08-02] MEDS ORDERED: inSUlin (REGULAR) HUMAN 1 UNIT/0.01 ML (CHARGE PER UNIT) SC ONE (14:45)
[2019-08-02] MEDS ORDERED: PANTOPRAZOLE 40 MG (PROTONIX) VIAL IV ONE (14:45)
[2019-08-02] MEDS ORDERED: NS IV 500 ML 500 ML IV ONE (14:49)
[2019-08-02] MEDS ORDERED: cefTRIAXone FOR IV USE 1,000 MG in WATER (STERILE) FOR INJECTION 10 ML IV ONE (15:00)
--- NOTE | 2019-08-02 15:06 | Diagnostic Imaging Report ---
Indication: Dyspnea with nausea and vomiting. Comparison: 03/21/2019. Discussion: Single portable upright view of the chest was obtained. Elevated right hemidiaphragm is again noted. Normal heart size. No new consolidation, pleural fluid or pneumothorax. No osseous abnormality. Impression: No acute cardiopulmonary process. Dictated by: Dictated on workstation # [id number]
[2019-08-02 15:08] LABS: BILIRUBIN,TOTAL 0.6 MG/DL (0.1-1.0); BUN/CREATININE RATIO 24; CALCIUM 9.9 MG/DL (8.5-10.1); CARBON DIOXIDE 28 MMOL/L (21-32); CHLORIDE 89 MMOL/L (98-107); CREATININE SERUM 0.88 MG/DL (0.60-1.30); GFR ESTIMATED > 60; GLUCOSE 356 MG/DL (70-105); SODIUM 138 MMOL/L (135-145)
[2019-08-02 15:09] LABS: ALANINE AMINOTRANSFERASE 18 U/L (0-55); ALBUMIN 4.3 GM/DL (3.2-4.5); ALKALINE PHOSPHATASE 95 U/L (40-136); LIPASE 15 U/L (8-78); TOTAL PROTEIN 8.1 GM/DL (6.4-8.2)
[2019-08-02 15:15] LABS: CLARITY,URINE CLOUDY; COLOR,URINE YELLOW; GLUCOSE, URINE (UA) 1+ (NEGATIVE); KETONES,URINE 1+ (NEGATIVE); PROTEIN,URINE 1+ (NEGATIVE)
[2019-08-02 15:16] LABS: BACTERIA,URINE LARGE /HPF; BILIRUBIN,URINE NEGATIVE (NEGATIVE); LEUKOCYTE ESTERASE ,URINE TRACE (NEGATIVE); NITRITE,URINE NEGATIVE (NEGATIVE); WBC,URINE 25-50 /HPF
[2019-08-02 15:19] LABS: PROTHROMBIN TIME PATIENT 13.6 SEC (12.2-14.7)
[2019-08-02 15:33] LABS: BAND NEUTROPHILS 2 %; BASOPHILS % (MANUAL) 0 %; EOSINOPHILS % (MANUAL) 0 %; HYPOCHROMASIA SLIGHT; LYMPHOCYTES % (MANUAL) 10 %; MONOCYTES % (MANUAL) 9 %; NEUTROPHILS % (MANUAL) 79 %
--- NOTE | 2019-08-02 15:45 | NUR ---
Notified the Lactic Acid result was 3.29. Pt has had a total of 1500 ml NS infused.
--- NOTE | 2019-08-02 16:02 | NUR ---
Called to dgt to advise the patient is being admitted per permission of patient. EMS is notified and in route. Explained that her wedding ring removed and will by in her personal possessions as Sepsis Protocol has physician order to remove rings. Dgt states she will be right out as they do not want this lost.
--- OUTSIDE RECORDS SUMMARY | 2019-08-02 16:09 | XMS REPORT | Continuity of Care Document ---
Author Organization Unknown Address Unknown Phone Unavailable Allergies Active Description Code Type Severity Reaction Onset Reported/Identified Relationship to Patient Clinical Status Yes amoxicillin [id number] Drug Aller gy Unknown N/A 05/27/2018 Yes clavulanic acid [id number] D rug Allergy Unknown N/A 05/27/2018 Yes moxifloxacin [id number] Drug Allergy Unknown N/A 05/27/2018 Yes No Known Drug Allergies [id number] Drug Allergy Unknown N/A 05/27/2018 Yes sulfamethoxazole [id number] Drug Allergy Unknown N/A 05/27/2018 Yes trimethoprim [id number] Drug Allergy Unknown N/A 05/27/2018 Medications There [...] MD Ot M43.16 SPONDYLOLISTHESIS, LUMBAR REGION 12/06/2018 LORNE GIFFORD MD Ot M43.8X6 OTHER SPECIFIED DEFORMING DORSOPATHIES, 12/06/2018 LOREN GIFFORD MD Ot M51.36 OTHER INTERVERTEBRAL DISC DEGENERATION, 12/06/2018 LOREN GIFFORD MD Ot W19.XXXA UNSPECIFIED FALL, INITIAL ENCOUNTER 12/06/2018 LOREN GIFFORD MD Ot Z98.1 ARTHRODESIS STATUS 03/21/2019 ROVENSTINE DO, MARY CARMEN Lucero Ot E11.40 TYPE 2 DIABETES MELLITUS WITH DIABETIC N 03/21/2019 ROVENSTINE DO, MARY CARMEN Lucero Ot I10 ESSENTIAL (PRIMARY) HYPERTENSION 03/21/2019 ROVENSTINE DO, MARY CARMEN Lucero Ot K21.9 GASTRO-ESOPHAGEAL REFLUX DISEASE WITHOUT 03/21/2019 ROVENSTINE DO, MARY CARMEN Lucero Ot R53.1 WEAKNESS 03/21/2019 ROVENSTINE DOMARY CARMEN Ot Z79.51 FDC (CURRENT) USE OF INHALED STERO 03/21/2019 ROVENSTINE DO, MARY CARMEN L Ot Z79.52 FDC (CURRENT) USE OF SYSTEMIC STER 03/21/2019 ROVENSTINE DO, MARY CARMEN Lucero Ot Z79.84 FDC (CURRENT) USE OF ORAL HYPOGLYC 03/21/2019 ROVENSTINE [...] ROVENSTINE DO, MARY CARMEN Lucero Ot Z79.51 PROFESSOR OF PATHOLOGY (CURRENT) USE OF INHALED STERO 03/26/2019 ROVENSTINE DO, MARY CARMEN L Ot Z79.52 FDC (CURRENT) USE OF SYSTEMIC STER 03/26/2019 ROVENSTINE DO, MARY CARMEN L Ot Z79.84 PROFESSOR OF PATHOLOGY (CURRENT) USE OF ORAL HYPOGLYC 03/26/2019 ROVENSTINE [...] WEAKNESS 03/31/2019 ROVENSTINE DOMARY CARMEN Ot Z79.51 FDC (CURRENT) USE OF INHALED STERO 03/31/2019 MAGALYVENSTINE DOMARY CARMEN Ot Z79.52 PROFESSOR OF PATHOLOGY (CURRENT) USE OF SYSTEMIC STER 03/31/2019 MAGALYVENSTINE DOMARY CARMEN Ot Z79.84 FDC (CURRENT) USE OF ORAL HYPOGLYC 03/31/2019 ROVENSTINE [...] culture - 05/28/18 17:47 Bacterial urine culture [id number] NRG COLONY COUNT >100,000/ML NRG FREE TEXT [...] 7-25 CREATININE 0.95 mg/dL 0.50-0.99 eGFR NON-AFR. GUYANESE 61 mL/min/1.73m2 > OR = 60 eGFR [...] 17:04 CULTURE, URINE, ROUTINE SEE NOTE NRG Complete blood count (CBC) with automate d white blood cell (WBC) differential - 08/02/19 14:29 Blood leukocytes automated count (number/volume) 14.2 10*3/uL 4.3-11.0 Blood erythrocytes automated count (number/volume) 4.32 10*6/uL 4.35-5.85 Venous blood hemoglobin measurement (mass/volume) 13.0 g/dL 11.5-16.0 Blood hematocrit (volume fraction) 40 % 35-52 Automated erythrocyte mean corpuscular volume 91 [ foz_us] 80-99 Automated erythrocyte mean corpuscular h emoglobin (mass per erythrocyte) 30 pg 25-34 Automated erythrocyte mean corpuscular h emoglobin concentration measurement (mass/volume) 33 g/dL 32-36 Automated erythrocyte distribution width ratio 12. 6 % 10.0- 14.5 Automated blood platelet count (count/volume) 417 10*3/uL 130-400 Automated blood platelet mean volume measurement 9.3 [foz_us] 7.4-10.4 Automated blood neutrophils/100 leukocytes 84 % 42-75 Automated blood lymphocytes/100 leukocytes 11 % 12-44 Blood monocytes/100 leukocytes 5 % 0-12 Automated blood eosinophils/100 leukocytes 0 % 0-10 Automated blood basophils/100 leukocytes 0 % 0-10 Blood neutrophils automated count (number/volume) 11.9 10*3 1.8-7.8 Blood lymphocytes automated count (number/volume) 1.5 10*3 1.0-4.0 Blood monocytes automated count (number/volume) 0. 8 10*3 0.0-1.0 Automated eosinophil count 0.0 10*3/uL 0 .0-0.3 Automated blood basophil count (count/volume) 0.1 10*3/uL 0.0-0.1 Comprehensive metabolic panel - 08/02/19 14:29 Serum or plasma sodium measurement (moles/volume) 138 mmol/L 135-145 Serum or plasma potassium measurement (moles/volume) 4.0 mmol/L 3.6-5.0 Serum or plasma chloride measurement (moles/volume) 89 mmol/L 98-107 Carbon dioxide 28 mmol/L 21-32 Serum or plasma anion gap determination (moles/volume) 21 mmol/L 5-14 Serum or plasma urea nitrogen measurement (mass/volume ) 21 mg/dL 7-18 Serum or plasma creatinine measurement (mass/volume) 0.88 mg/dL 0.60-1.30 Serum or plasma urea nitrogen/creatinine mass ratio 24 NRG Serum or plasma creatinine measurement w ith calculation of estimated glomerular filtration rate > NRG Serum or plasma glucose measurement (mass/volume) 356 mg/dL 70-105 Serum or plasma calcium measurement (mass/volume) 9.9 mg/dL 8.5-10.1 Serum or plasma total bilirubin measurement (mass/volu me) 0.6 mg/dL 0.1-1.0 Serum or plasma alkaline phosphatase miguel surement (enzymatic activity/volume) 95 U/L 40-136 Serum or plasma aspartate aminotransfera se measurement (enzymatic activity/volume) 23 U/L 5-34 Serum or plasma alanine aminotransferase measurement (enzymatic activity/volume) 18 U/L 0-55 Serum or plasma protein measurement (mass/volume) 8.1 g/dL 6.4-8.2 Serum or plasma albumin measurement (mass/volume) 4.3 g/dL 3.2-4.5 CALCIUM CORRECTED 9.7 mg/dL 8.5-10.1 TROPONIN I FS - 08/02/19 14:29 TROPONIN I FS < 0.30 <0.30 Lipase - 08/02/19 14:29 Lipase 15 U/L 8-78 CRP FS - 08/02/19 14:29 CRP FS 0.44 mg/dL <0.50 PT panel in platelet poor plasma by coag ulation assay - 08/02/19 14:29 Prothrombin time (PT) in platelet poor plasma by coagu lation assay 13.6 s 12.2-14.7 INR in platelet poor plasma or blood by coagulation as say 1.0 0.8-1.4 Activated partial thromboplastin time (a PTT) in platelet poor plasma bycoagulation assay - 08/02/19 14:29 Activated partial thromboplastin time (a PTT) in platelet poor plasma bycoagulation assay 26 s 24-35 Manual absolute plasma cell count - 07/22 05/12 14:29 Blood monocytes/100 leukocytes 9 % NRG Manual blood segmented neutrophils/100 leukocytes 79 % NRG Blood band neutrophils/100 leukocytes 2 % NRG Manual blood lymphocytes/100 leukocytes 10 % NRG Manual eosinophils/100 leukocytes in nose 0 % NRG Manual blood basophils/100 leukocytes 0 % NRG Blood hypochromia detection by light microscopy SL IGHT NRG Capillary blood glucose measurement by g lucometer (mass/volume) - 08/02/19 14:31 Capillary blood glucose measurement by glucometer (mas s/volume) 342 mg/dL 70-110 Complete urinalysis with reflex to cultu re - 08/02/19 14:42 Urine color determination YELLOW NRG Urine clarity determination CLOUDY NR G Urine pH measurement by test strip 6.0 5-9 Specific gravity of urine by test strip 1.025 1.016-1.022 Urine protein assay by test strip, semi-quantitative 1+ NEGATIVE Urine glucose detection by automated test strip 1+ NEGATIVE Erythrocytes detection in urine sediment by light micr oscopy TRACE NEGATIVE Urine ketones detection by automated test strip 1+ NEGATIVE Urine nitrite detection by test strip NEGATIVE NEGATIVE Urine total bilirubin detection by test strip NEGA TIVE NEGATIVE Urine urobilinogen measurement by automated test strip (mass/volume) 0.2 mg/dL < = 1.0 Urine leukocyte esterase detection by dipstick TRA CE NEGATIVE Automated urine sediment erythrocyte cou nt by microscopy (number/high power field) [HPF] NRG Automated urine sediment leukocyte count by microscopy (number/high power field) [HPF] NRG Bacteria detection in urine sediment by light microsco py LARGE NRG Squamous epithelial cells detection in u rine sediment by light microscopy NONE NRG Crystals detection in urine sediment by light microsco py NONE NRG Casts detection in urine sediment by light microscopy NONE NRG Mucus detection in urine sediment by light microscopy NEGATIVE NRG Complete urinalysis with reflex to culture YES NRG Blood lactic acid measurement (moles/vol ume) - 08/02/19 15:10 Blood lactic acid measurement (moles/volume) 3.29 mmol/L 0.50-2.00 Encounters ACCT No. Visit Date/Time Discharge Status Pt. Type Provider Facility Loc./Unit Complaint [id number] 07/01/2019 13:45:00 07/01/2019 23:59: 59 CLS Outpatient SELF, FRANKY Mchugh [facility] [id number] 07/14/2019 17:00:00 Document Registration [id number] 04/08/2019 15:15:00 Document Registration [id number] 12/17/2018 10:30:00 Document Registration [id number] 12/16/2018 11:15:00 Document Registration [id number] 08/05/2018 14:15:00 Document Registration [id number] 03/21/2019 17:35:00 19:09:00 DIS Emergency MARY CARMEN ESCALANTE DO [facility] ER FS GEN WEAKNESS [id number] 11/15/2018 12:39:00 23:59:59 CLS Outpatient LOREN GIFFORD MD [facility] RAD FS M43.16 [id number] 09/23/2018 17:40:00 23:59:59 CLS Outpatient FRANKY WADE MD [facility] RAD FS [id number] 05/27/2018 17:40:00 10:35:00 DIS Inpatient MALIKA VÁZQUEZ DO, [facility] IRF LUMBAR STENOSIS WITH RA DICULOPATHY [id number] 08/02/2019 14:43:00 Document Registration
--- NOTE | 2019-08-02 16:10 | NUR ---
Called dgt back that pt asked for her cell phone printing assistant also. Dgt states she will return to get it and she is in town and will be directly over. Explained EMS is in route to ER and will take just a few moments to get our report and load to take off. Will advise she was to be coming [place].
--- NOTE | 2019-08-02 16:15 | NUR ---
Pt given pericare for smearing of dk greenish BM smears in a depends and new depends applied.
--- NOTE | 2019-08-02 16:25 | NUR ---
Dgt is not here and speech and hearing clinic director Arsenio Jeronimo MICT/RN requests to load and transfer now. We will continue to observe for family.
--- NOTE | 2019-08-02 16:30 | NUR ---
EMS has been on board for 5 min hooking patient up and dgt has not pulled in. Determination per EMS they are departing now as not able to delay transfer and need to get back to be in service.
--- NOTE | 2019-08-02 16:38 | NUR ---
Pt's dgt pulled into parking lot and called of her arrival. Shahnaz took the patient's wedding ring to dgt while this RN calling report. Dgt verbalized much unhappiness over the not delaying EMS till her arrival. RN explained we can not delay EMS beyond reasonable timing as they were here 20 min and EMS can not stop on highway or turn around for such requests to pass on a cell phone job coach/job developer. The dgt is asking if she is expected to drive all the way to [place] to deliver it to a staff member. RN allows dgt to make her own decision. Reports is given to Lisa BLACK per this nurse.
--- NOTE | 2019-08-02 17:15 | NUR ---
JORDANA RADHA admitted to room 413-1, with an admitting diagnosis of UTI AND SEPSIS, on 08/02/19 from [place] via , accompanied by .JORDANA GARCIA introduced to surroundings, call light, bed controls, phone, TV, temperature control, lights, meal times, smoking policy, visitor policy, side rail policy, bathrooms and showers. Patient Rights given to patient in the handbook.JORDANA GARCIA verbalizes understanding that [facility] is not responsible for the loss or damage to any personal effects or valuables that are kept in the patients posession during their hospitalization. JORDANA GARCIA verbalizes understanding of Interdisciplinary Patient Education. Patient and/or family were informed about the Rapid Response Team and its purpose.
[2019-08-02 17:27] VITALS: BP 180/93
[2019-08-02] MEDS ORDERED: LIPASE/AMYLASE/PROTEASE (PANCRELIPASE) 5,000 UNITS CAP PO SCH (18:00)
[2019-08-02] MEDS ORDERED: ENOXAPARIN 30 MG/0.3 ML (LOVENOX) SYR SC SCH (18:15)
[2019-08-02] MEDS ORDERED: NS IV 1000 ML 1,000 ML ONE (18:18)
[2019-08-02] MEDS: NS IV 1000 ML 1,000 ML IV SCH (18:27)
[2019-08-02] MEDS ORDERED: PROMETHAZINE INJ 25 MG/ML (PHENERGAN) AMP ONE (19:48)
[2019-08-02] MEDS: PROMETHAZINE 25 MG (PHENERGAN) TAB PO PRN (19:59)
[2019-08-02 20:18] VITALS: BP 166/80
[2019-08-02] MEDS: DROXIDOPA 200 MG PO SCH (20:37)
[2019-08-02] MEDS: GABAPENTIN 100 MG (NEURONTIN) CAP PO SCH (20:45)
[2019-08-02] MEDS: MIDODRINE 10 MG (PROAMATINE) TAB PO SCH (20:45)
[2019-08-02] MEDS: inSUlin ASPART (NovoLOG) 1 UNIT/0.01 ML (CHARGE PER UNIT) SC SCH (20:46)
[2019-08-02] MEDS: COLESTIPOL 1 GM (COLESTID) TAB PO SCH (20:46)
[2019-08-02] MEDS: CYCLOBENZAPRINE 10 MG (FLEXERIL) TAB PO SCH (20:46)
--- NOTE | 2019-08-02 20:55 | NUR ---
DAUGHTER CALLED THIS RN FOR UPDATE ON PATIENT. REPORT GIVEN. WILL NOTIFY DAUGHTER OF ANY CHANGES IN PATIENT CONDITION PER REQUEST.
[2019-08-02] MEDS ORDERED: FAMOTIDINE 20 MG (PEPCID) TABLET PO SCH (21:00)
[2019-08-02] MEDS ORDERED: NON-FORMULARY MEDICATION 1 EA EA (Potassium Chloride 10 MEQ) PO SCH (21:00)
[2019-08-03] VITALS (7 sets, daily range): BP systolic 94–179; BP diastolic 54–84
[2019-08-03] MEDS: NS IV 1000 ML 1,000 ML IV SCH ×4 (00:50→23:30)
[2019-08-03 06:00] LABS: BASOPHILS % (AUTO) 0 % (0-10); EOSINOPHILS % (AUTO) 0 % (0-10); HEMATOCRIT 33 % (35-52); HEMOGLOBIN 10.7 G/DL (11.5-16.0); LYMPHOCYTES # (AUTO) 3.1 X 10^3 (1.0-4.0); LYMPHOCYTES % (AUTO) 22 % (12-44); MEAN CORPUSCULAR HEMOGLOBIN 30 PG (25-34); MEAN CORPUSCULAR HGB CONC 32 G/DL (32-36); MEAN CORPUSCULAR VOLUME 93 FL (80-99); MEAN PLATELET VOLUME 9.9 FL (7.4-10.4); MONOCYTES # (AUTO) 1.5 X 10^3 (0.0-1.0); MONOCYTES % (AUTO) 11 % (0-12); NEUTROPHILS # (AUTO) 9.7 X 10^3 (1.8-7.8); NEUTROPHILS % (AUTO) 67 % (42-75); PLATELET COUNT 384 10^3/uL (130-400); WHITE BLOOD COUNT 14.4 10^3/uL (4.3-11.0)
[2019-08-03 06:23] LABS: POTASSIUM 3.3 MMOL/L (3.6-5.0)
[2019-08-03 06:24] LABS: CALCIUM 8.3 MG/DL (8.5-10.1)
[2019-08-03 06:28] LABS: CREATININE SERUM 1.14 MG/DL (0.60-1.30)
[2019-08-03] MEDS: KCL 10 MEQ TAB (MICRO K) PO SCH ×2 (06:35→17:20)
[2019-08-03] MEDS: inSUlin ASPART (NovoLOG) 1 UNIT/0.01 ML (CHARGE PER UNIT) SC SCH ×4 (06:35→21:00)
[2019-08-03] MEDS: COLESTIPOL 1 GM (COLESTID) TAB PO SCH ×2 (09:00→20:25)
[2019-08-03] MEDS ORDERED: NON-FORMULARY MEDICATION 1 EA EA (Magnesium Oxide (Magnesium) 500 MG) PO SCH (09:00)
[2019-08-03] MEDS: GABAPENTIN 100 MG (NEURONTIN) CAP PO SCH ×3 (09:00→20:25)
[2019-08-03] MEDS: CYCLOBENZAPRINE 10 MG (FLEXERIL) TAB PO SCH ×3 (09:00→20:25)
[2019-08-03] MEDS: LIPASE/AMYLASE/PROTEASE (PANCRELIPASE) 5,000 UNITS CAP PO SCH ×4 (09:00→20:25)
--- NOTE | 2019-08-03 09:00 | NUR ---
DR. CHUNG NOTIFIED [facility] NOT AVAILABLE. REQUESTED TO HOLD MEDS UNTIL AFTER DR. MORRIS PT.
[2019-08-03] MEDS: DROXIDOPA 200 MG PO SCH ×3 (09:38→19:17)
[2019-08-03] MEDS: MAGNESIUM OXIDE (MAG-OX)400 MG TAB PO SCH (11:37)
[2019-08-03] MEDS: FLUDROCORTISONE 0.1 MG (FLORINEF) TAB PO SCH (11:40)
[2019-08-03] MEDS: MIDODRINE 10 MG (PROAMATINE) TAB PO SCH ×3 (11:40→20:25)
[2019-08-03] MEDS: FAMOTIDINE 20 MG (PEPCID) TABLET PO SCH (11:40)
[2019-08-03] MEDS ORDERED: PANTOPRAZOLE 40 MG (PROTONIX) TAB PO ONE ×2 (11:44→11:45)
--- NOTE | 2019-08-03 11:45 | NUR ---
LORTAB 5 PO FOR ABD PAIN AND ZOFRAN 4 PO FOR NAUSEA. DID AGREE TO TAKE SOME OF HER PO MEDS.
[2019-08-03] MEDS: HYDROcodone/APAP 5 MG/325 MG (LORTAB) TAB PO PRN ×2 (11:47→20:25)
[2019-08-03] MEDS: ONDANSETRON 4 MG (ZOFRAN) ORAL DISSOLVE TAB PO PRN (11:47)
--- NOTE | 2019-08-03 11:51 | History & Physical-Hospitalist ---
History of Present Illness HPI/Chief Complaint This is a 69-year-old white female who presented the emergency room with severe abdominal pain. She has a history of a neurogenic bladder secondary to spinal stenosis. She says that when she gets this pain sometimes she has a urinary tract infection. Micro-cultures are pending at this time. This morning she continues to have abdominal pain in his vomiting. She's had a previous cholecystectomy but evidently had pancreatitis as well. She denies having any alcohol intake can cause this to flare. She is vomiting intermittently and retching as well. Source: patient Exam Limitations: clinical condition Date Seen 08/03/19 Time Seen by a Provider: 11:00 Attending Physician Jo Rodriguez MD PCP SelfOmi MD Referring Physician Date of Admission Aug 02, 2019 at 15:55 Home Medications & Allergies Home Medications Reviewed patient Home Medication Reconciliation performed by pharmacy medication reconciliations financial services technician and/or nursing. Patients Allergies have been reviewed. Allergies Allergies Coded Allergies amoxicillin (Verified Allergy, Unknown, 05/27/18) clavulanic acid (Verified Allergy, Unknown, 05/27/18) moxifloxacin (Verified Allergy, Unknown, 05/27/18) sulfamethoxazole (Verified Allergy, Unknown, 05/27/18) trimethoprim (Verified Allergy, Unknown, 05/27/18) Past Mgajpfu-Twehnm-Rcpsgi Hx Past Med/Social Hx: Reviewed Nursing Past Med/Soc Hx Patient Social History Marrital Status: Employed/Student: retired Alcohol Use: Denies Use Recreational Drug Use: No Smoking Status: Never a Smoker 2nd Hand Smoke Exposure: No Recent Foreign Travel: No Contact w/other who traveled: No Recent Hopitalizations: Yes Recent Infectious Disease Expo: No Immunizations Up To Date Date of Pneumonia Vaccine: Aug 09, 2016 Date of Influenza Vaccine: May 27, 2018 Seasonal Allergies Seasonal Allergies: No Past Medical History Surgeries: Appendectomy, Gallbladder, Orthopedic Currently Using CPAP: No Currently Using BIPAP: No Cardiac: Hypertension, Hypotension, Palpitations Neurological: Neuropathy : No Genitourinary: Neurogenic Bladder Gastrointestinal: Gastroesophageal Reflux Musculoskeletal: Arthritis, Chronic Back Pain Endocrine: Diabetes, Non-Insulin dep HEENT: Cataract Loss of Vision: Denies Hearing Impairment: Denies History of Blood Disorders: No Adverse Reaction to Blood Méndez: No Family History Completed stroke 19 MOTHER (cva) G8 SISTER (cva) Diabetes mellitus 19 FATHER (neurpathy) Headache disorder 19 MOTHER (migraines) G8 BROTHER (migraines) G8 SISTER (migraines) Neoplasm 19 MOTHER (cancer) Diabetes Review of Systems Constitutional: see HPI EENTM: no symptoms reported Respiratory: no symptoms reported Cardiovascular: no symptoms reported Gastrointestinal: abdominal pain (RUQ) Genitourinary: no symptoms reported Musculoskeletal: no symptoms reported Skin: no symptoms reported Psychiatric/Neurological: No Symptoms Reported Physical Exam Physical Exam Vital Signs Vital Signs - First Documented 08/02/19 08/02/19 14:22 14:45 Temp 36.1 Pulse 98 Resp 16 B/P (MAP) 150/75 (100) Pulse Ox 97 O2 Delivery Room Air Capillary Refill : Less Than 3 Seconds Height, Weight, BMI Height: 5'2.00" Weight: 144lbs. 0.9oz. 65.611048pe; 23.39 BMI Method: General Appearance: Chronically ill HEENT: Other (Edentulous with recent removal of all her teeth) Neck: Limited Range of Motion Respiratory: Lungs Clear, Normal Breath Sounds, No Accessory Muscle Use, No Respiratory Distress Cardiovascular: Regular Rate, Rhythm, No Gallop, No Murmur, Normal Peripheral Pulses Gastrointestinal: Normal Bowel Sounds, Soft Rectal: Deferred Back: Normal Inspection Extremity: No Pedal Edema Neurologic/Psychiatric: Alert, Oriented x3, Other (In pain) Results Results/Procedures Labs Laboratory Tests 08/02/19 14:29 08/03/19 05:07 Patient resulted labs reviewed. Imaging: Reviewed Imaging Report Assessment/Plan Admission Diagnosis Sepsis Urinary tract infection-with elevated lactic acid consistent with sepsis Abdominal pain Neurogenic bladder Vomiting Hypokalemia Orthostatic hypotension Diabetes Plan to obtain a CT abdomen pelvis with contrast for further evaluation of the.abdominal pain and possible pyelonephritis Admission Status: Inpatient Order (span 2 midnights) Reason for Inpatient Admission: Patient with multiple comorbidities and complicated medical problems including diabetes requiring at least 3 days of antibiotics for recurrent urinary tract infection with a history of self cathetering Clinical Quality Measures DVT/VTE Risk/Contraindication: Risk Factor Score Per Nursin RFS Level Per Nursing on Admit: 4+=Very High Copy Copies To 1: SELF,JO BULLOCK MD, MD Aug 03, 2019 11:51
[2019-08-03] MEDS ORDERED: NS 100 ML (IVPB) BAG IV ONE (13:15)
[2019-08-03] MEDS ORDERED: IOHEXOL 350 MG/ML 100 ML (OMNIPAQUE 350) VIAL IV ONE (13:15)
[2019-08-03] MEDS ORDERED: HOLD METFORMIN - RECEIVED CONTRAST 20 ML VIAL IV SCH (13:15)
--- NOTE | 2019-08-03 13:33 | NUR ---
TO CT FOR SCAN PER WC.
--- NOTE | 2019-08-03 14:19 | Diagnostic Imaging Report ---
PROCEDURE: CT abdomen and pelvis with contrast. TECHNIQUE: Multiple contiguous axial images were obtained through the abdomen and pelvis after administration of intravenous contrast. Auto Exposure Controls were utilized during the CT exam to meet ALARA standards for radiation dose reduction. INDICATION: Abdominal pain. FINDINGS: The lung bases demonstrate no focal infiltrate or consolidation. There is no effusion. There is no pericardial collection. The liver demonstrates apparent steatosis without findings of a focal intrahepatic abnormality. The portal veins appear patent. The gallbladder appears surgically absent. There is no biliary dilatation. The spleen is normal in size. There is no adrenal mass. The kidneys enhance normally and appear nonobstructed. The pancreas demonstrates no focal abnormality or adjacent inflammation or fluid The stomach is nondistended. The duodenal sweep is appropriately positioned. There are no findings of abnormal small bowel dilation. The colon is decompressed. No abnormal colonic thickening is evident. There are no findings of focal fat stranding within the omentum or mesentery. There is no free air, free fluid or evidence of abscess. There is a Hameed catheter within the urinary bladder. Uterus and adnexal regions unremarkable without pelvic mass. There are no findings of pathologic enlargement of abdominal or pelvic lymph nodes. There are advanced atherosclerotic calcifications within the aorta. The aorta is normal in caliber. Multilevel lumbar degenerative disc disease and facet arthropathy are present. There has been prior spinal fusion performed at L3-L4 with irregular endplate changes about a prior interbody graft at that level. Note is made of an L1 fracture which appears to be an anterior column superior endplate fracture. There is approximately 50% height loss anteriorly. This fracture appears acute. There additionally appears to be a fracture of the left posterior 12th rib. IMPRESSION: 1. No CT evidence of an acute inflammatory or obstructive process within the abdomen or pelvis. 2. Hepatic steatosis 3. Previous L3-L4 posterior lumbar interbody fusion. 4. Acute anterior column superior endplate fracture of L1 with approximately 50% height loss. There also is a fracture of the posterior left 12th rib which may be acute or subacute. Dictated by: Dictated on workstation # [id number]
[2019-08-03] MEDS: SUCRALFATE 1 GM (CARAFATE) TAB PO SCH ×2 (15:44→20:25)
[2019-08-03] MEDS: cefTRIAXone FOR IV USE 1,000 MG in WATER (STERILE) FOR INJECTION 10 ML IV SCH (15:45)
[2019-08-03] MEDS: ENOXAPARIN 40 MG/0.4 ML (LOVENOX) SYR SC SCH (17:19)
[2019-08-03] MEDS: ONDANSETRON 4 MG/2 ML (SDV) Z0FRAN IVP PRN (20:25)
--- NOTE | 2019-08-03 21:25 | NUR ---
2100- IV SITE MODERATELY RED ON RIGHT WRIST RUNNING UP ARM. NO COMPLAINTS OF PAIN OR TENDERNESS. IVF STOPPED. 2125- 22 G INSERTED TO LEFT WRIST X 1 BY THIS RN. PT TOLERATED WELL. IV FLUSHES WITH BLOOD RETURN. IVF RESTARTED. WILL CONTINUE TO MONITOR.
[2019-08-04] MEDS: PROMETHAZINE 25 MG (PHENERGAN) TAB PO PRN ×2 (01:49→21:49)
[2019-08-04] MEDS: ACETAMINOPHEN 500 MG TAB (TYLENOL) PO PRN (01:49)
[2019-08-04] MEDS: HYDROcodone/APAP 5 MG/325 MG (LORTAB) TAB PO PRN ×2 (05:36→13:21)
[2019-08-04] MEDS: KCL 10 MEQ TAB (MICRO K) PO SCH ×2 (05:36→18:23)
[2019-08-04] MEDS: SUCRALFATE 1 GM (CARAFATE) TAB PO SCH ×4 (05:36→20:07)
[2019-08-04] MEDS: NS IV 1000 ML 1,000 ML IV SCH ×3 (05:37→20:53)
[2019-08-04 05:40] LABS: BASOPHILS % (AUTO) 0 % (0-10); EOSINOPHILS % (AUTO) 0 % (0-10); HEMATOCRIT 36 % (35-52); HEMOGLOBIN 11.8 G/DL (11.5-16.0); LYMPHOCYTES % (AUTO) 17 % (12-44); MEAN CORPUSCULAR HEMOGLOBIN 30 PG (25-34); MEAN CORPUSCULAR HGB CONC 32 G/DL (32-36); MEAN CORPUSCULAR VOLUME 92 FL (80-99); MEAN PLATELET VOLUME 9.5 FL (7.4-10.4); MONOCYTES # (AUTO) 1.1 X 10^3 (0.0-1.0); MONOCYTES % (AUTO) 9 % (0-12); NEUTROPHILS # (AUTO) 8.7 X 10^3 (1.8-7.8); NEUTROPHILS % (AUTO) 74 % (42-75); PLATELET COUNT 373 10^3/uL (130-400); RED CELL DISTRIBUTION WIDTH 12.9 % (10.0-14.5); WHITE BLOOD COUNT 11.8 10^3/uL (4.3-11.0)
[2019-08-04 05:43] LABS: ALBUMIN 3.7 GM/DL (3.2-4.5)
[2019-08-04 05:44] LABS: CHLORIDE 96 MMOL/L (98-107); POTASSIUM 2.8 MMOL/L (3.6-5.0); SODIUM 139 MMOL/L (135-145)
[2019-08-04 05:45] LABS: CALCIUM 8.5 MG/DL (8.5-10.1)
[2019-08-04 05:46] LABS: GLUCOSE 119 MG/DL (70-105); TOTAL PROTEIN 7.6 GM/DL (6.4-8.2)
[2019-08-04 05:47] LABS: CARBON DIOXIDE 28 MMOL/L (21-32)
[2019-08-04 05:48] LABS: BILIRUBIN,TOTAL 0.3 MG/DL (0.1-1.0)
[2019-08-04 05:49] LABS: ALKALINE PHOSPHATASE 70 U/L (40-136)
[2019-08-04 05:50] LABS: GFR ESTIMATED > 60
[2019-08-04 05:51] LABS: BUN/CREATININE RATIO 11
[2019-08-04 05:53] LABS: ALANINE AMINOTRANSFERASE 13 U/L (0-55)
[2019-08-04] MEDS: inSUlin ASPART (NovoLOG) 1 UNIT/0.01 ML (CHARGE PER UNIT) SC SCH ×4 (06:00→20:37)
[2019-08-04] MEDS: MIDODRINE 10 MG (PROAMATINE) TAB PO SCH ×3 (07:54→20:09)
[2019-08-04] MEDS: GABAPENTIN 100 MG (NEURONTIN) CAP PO SCH ×3 (07:55→20:07)
[2019-08-04] MEDS: COLESTIPOL 1 GM (COLESTID) TAB PO SCH ×2 (07:55→20:10)
[2019-08-04] MEDS: FLUDROCORTISONE 0.1 MG (FLORINEF) TAB PO SCH (07:55)
[2019-08-04] MEDS: MAGNESIUM OXIDE (MAG-OX)400 MG TAB PO SCH (07:55)
[2019-08-04] MEDS: LIPASE/AMYLASE/PROTEASE (PANCRELIPASE) 5,000 UNITS CAP PO SCH ×4 (07:56→20:06)
[2019-08-04] MEDS: FAMOTIDINE 20 MG (PEPCID) TABLET PO SCH (07:58)
[2019-08-04] MEDS: CYCLOBENZAPRINE 10 MG (FLEXERIL) TAB PO SCH ×3 (07:58→20:05)
[2019-08-04 08:00] VITALS: BP 135/73
[2019-08-04] MEDS ORDERED: CLON0.5T4 PO (08:47)
[2019-08-04] MEDS ORDERED: CYCL10TA9 PO (08:47)
[2019-08-04] MEDS ORDERED: DULO30CA49 PO (08:57)
[2019-08-04] MEDS ORDERED: CHOL50005 PO (08:57)
--- NOTE | 2019-08-04 09:34 | Physician Query Clarification ---
PQ-Further Specificity Admission/Discharge Admission Date: Aug 02, 2019 at 15:55 Discharge Date: The medical record reflects the following clinical scenario: History/Risk Factors: Sepsis Acute UTI/possible pyelonephritis. Clinical Findings: Lactic acid 3.29. Treatment:IV Rocephin, IV Sodium Chloride Question: Can you further specify Sepsis per the clinical indicators above? Please document a response in the Progress Notes or Discharge Summary. 1. Severe sepsis. 2. Sepsis, no severe sepsis. 3. Other, with explanation of the clinical findings. 4. Clinically undetermined, no explanation for the clinical findings. PHYSICIAN RESPONSE Can you specify per above: 2 Please remember a lack of response to the above will prompt a phone page by CDI/Coding staff. In responding to this query, please exercise your independent professional judgment. The purpose of this communication is to more accurately reflect the complexity of your patients condition. The fact that a question is asked does not imply that any particular answer is desired or expected. Thank you for your timely response to this clarification. Requestors name: Sowmya Pierce [facility] Phone # ext [phone] or [phone] THIS PHYSICIAN QUERY FORM IS A PERMANENT PART OF THE MEDICAL RECORD SOWMYA PIERCE Aug 04, 2019 09:34 MARY CHUNG MD Aug 04, 2019 14:21
--- NOTE | 2019-08-04 09:40 | NUR ---
IVF DECREASED TO 75 CC/HR.
[2019-08-04] MEDS ORDERED: GLIP5TAB13 PO (10:03)
--- NOTE | 2019-08-04 10:04 | NUR ---
SPOKE WITH THE PT, CALLED MARYANNE RAMIREZ AND [facility] AND WENT THRU THE EXT MED HISTORY TO COMPLETE THE MED REC 04-17-2019 CREON 01947 #200/50DS- WHEN I ASKED THE PT ABOUT HOW OFTEN SHE IS TAKING OR IF SHE MISSES ANY DOSES THE PT WAS ADAMANT THAT SHE TAKES THIS MED QID AND NEVER MISSES A DOSE. I THEN INQUIRED ABOUT HOW A 50 DAY SUPPLY HAS LASTED THIS LONG- SHE COULDNT ANSWER AND JUST SAID SHE HAD SOME STILL AT HOME. I DID DOCUMENT THE PAST DUE FILL ON THE MED REC 02-09-2019 GLIPIZIDE 5MG #180/90DS- SAME SITUATION LISTED ABOVE- THE PT SAID SHE TAKES 1 TAB BID EVERYDAY AND DOESNT KNOW WHY SHE STILL HAS SOME TABLETS. I DID DOCUMENT ON THE MED REC CYMBALTA 30MG- THE DIRECTIONS STATED 1 CAP DAILY X 7 DAYS, THEN 2 CAPS DAILY THEREAFTER- SHE WAS JUST STARTING THE 60MG DAILY. NORTHERA 200MG- WHEN I FIRST SPOKE WITH THE PT SHE SAID SHE DID TAKE THIS, HOWEVER I COULD NOT FIND A PHARMACY THAT HAD FILLED THIS FOR HER. WHEN I WENT BACK AND ASKED ABOUT IT AGAIN THE PT ADMITTED SHE HAD NOT BEEN ON THIS MEDICATION IN OVER 6 MONTHS- FOR THIS REASON IT WAS NOT ADDED TO THE MED REC OTC MEDS: BENADRYL MAGNESIUM VIT D FLONASE
--- NOTE | 2019-08-04 11:17 | Progress Note ---
Subjective Subjective/Events-last exam Patient states that she is feeling alittle better. Her abdominal pain is improving but now she is having a headache. She has tried some sips of water but states that it makes her nauseous. She has not been able to tolerate any food. Review of Systems Pulmonary: No Dyspnea, No Cough Cardiovascular: No: Chest Pain, Palpitations Gastrointestinal: Nausea, Vomiting, Abdominal Pain Neurological: Weakness, Incoordination Focused Exam Lactate Level 08/02/19 15:10: Lactic Acid Level 3.29*H 08/02/19 17:47: Lactic Acid Level 2.37*H 08/02/19 19:48: Lactic Acid Level 1.85 Objective Exam Last Set of Vital Signs Vital Signs Date Time Temp Pulse Resp B/P (MAP) Pulse Ox O2 Delivery O2 Flow Rate FiO2 08/04/19 08:00 36.5 75 16 135/73 (93) 96 Room Air Capillary Refill : Less Than 3 SecondsLess Than 3 Seconds I&O Intake and Output 08/04/19 00:00 Intake Total 2430 ml Output Total 3220 ml Balance -790 ml Intake Oral 420 ml IV Total 2010 ml Output Urine Total 3220 ml General: Alert, Oriented X3, Cooperative, No Acute Distress Lungs: Clear to Auscultation, Normal Air Movement Heart: Regular Rate, No Murmurs Abdomen: Normal Bowel Sounds, Soft, Other (mild epigastic ttp, no rebound or gaurding) Extremities: No Edema, No Tenderness/Swelling Results/Procedures Lab Laboratory Tests 08/03/19 11:12: Glucometer 142H 08/03/19 15:34: Glucometer 178H 08/03/19 20:45: Glucometer 135H 08/04/19 04:50: White Blood Count 11.8H, Red Blood Count 3.98L, Hemoglobin 11.8, Hematocrit 36, Mean Corpuscular Volume 92, Mean Corpuscular Hemoglobin 30, Mean Corpuscular Hemoglobin Concent 32, Red Cell Distribution Width 12.9, Platelet Count 373, Mean Platelet Volume 9.5, Neutrophils (%) (Auto) 74, Lymphocytes (%) (Auto) 17, Monocytes (%) (Auto) 9, Eosinophils (%) (Auto) 0, Basophils (%) (Auto) 0, Neutrophils # (Auto) 8.7H, Lymphocytes # (Auto) 2.0, Monocytes # (Auto) 1.1H, Eosinophils # (Auto) 0.0, Basophils # (Auto) 0.0, Sodium Level 139, Potassium Level 2.8L, Chloride Level 96L, Carbon Dioxide Level 28, Anion Gap 15H, Blood Urea Nitrogen 9, Creatinine 0.80, Estimat Glomerular Filtration Rate > 60, BUN/Creatinine Ratio 11, Glucose Level 119H, Calcium Level 8.5, Corrected Calcium 8.7, Total Bilirubin 0.3, Aspartate Amino Transf (AST/SGOT) 31, Alanine Aminotransferase (ALT/SGPT) 13, Alkaline Phosphatase 70, Total Protein 7.6, Albu min 3.7 Microbiology 08/02/19 Blood Culture - Preliminary, Resulted No growth 08/02/19 Urine Culture - Preliminary, Resulted Escherichia coli Assessment/Plan Assessment/Plan (1) Sepsis Status: Resolved Qualifiers: Qualified Codes: A41.9 - Sepsis, unspecified organism (2) Acute UTI Status: Acute Assessment & Plan: 08/03: Continue IV antibiotics as patient is not tolerating PO at this time, Will decrease IVFs to encourage PO hydration (3) Abdominal pain Status: Acute Assessment & Plan: 08/03: Ct Abd/Pelvis w/o any acute finding yesterday, pain is improving, advance diet as tolerated Qualifiers: Qualified Codes: R10.13 - Epigastric pain (4) Hypokalemia Status: Acute Assessment & Plan: 08/03: Replace and repeat BMP in AM (5) Neurogenic bladder Status: Chronic (6) Headache Status: Acute Assessment & Plan: 08/03: Will d/c fluids as blood pressure was up overnight, Tylenol for pain Qualifiers: (7) Diabetes mellitus Status: Chronic (8) DVT prophylaxis Status: Acute Assessment & Plan: - Lovenox Clinical Quality Measures DVT/VTE Risk/Contraindication: Risk Factor Score Per Nursin RFS Level Per Nursing on Admit: 4+=Very High KURT TEMPLE MD Aug 04, 2019 11:17
--- NOTE | 2019-08-04 13:15 | NUR ---
LORTAB 5 PO FOR PAIN.
--- NOTE | 2019-08-04 15:18 | NUR ---
RD ASSESSMENT PMHx: HTN; hypotension; GERD; DM PT INTERACTION: Pt was awake and pleasant during nutrition assessment. Pt states current appetite is poor and has been for the past 2-3d. Note pt has been refusing meals x2d, per chart review. Pt states following a regular diet at home, and has no issues with chewing/swallowing food. Note pt has dentures. Pt states some recent issues with nausea, but no vomiting. Pt states recent issues with diarrhea on 08/01, which is also when she states was her last BM. Note pt not currently on bowel regimen per chart review. Pt states recent wt loss, but unsure of amount/timeframe. Pt states it was "a bunch." Note recent 12# wt gain x4mon, per chart review. Pt states current DM management is pretty good, and that her average blood glucose level is around 130. Note unable to determine recent HbA1c, per chart review. ABNORMAL NUTRITION-RELATED LAB VALUES LOW: K 2.8; Cl 96 HIGH: glu 119 Est. kcal needs: 0892-1551 kcal | 25-30 kcal/kg Est. Pro needs: 60-72 g Pro | 1.0-1.2 g Pro/kg PES STATEMENT: Inadequate oral intake (NI-2.1) related to loss of appetite | nausea | diarrhea as evidenced by pt interview | Pt refusing meals x2d INTERVENTION: Continue with current diet order of CHO 60g/m 3snack diet. Add Glucerna (vary) to meals TID, for increased kcal intake. Provides 220 kcal and 10 g Pro per serving. Will continue to follow and reassess as pt needs, intake, and status change. MONITOR/EVALUATE: PO Intake; Plan of Care; Hydration Status; Weight Status; Lab Values Jimmy Boykin, MS, RD, LD
[2019-08-04] MEDS: cefTRIAXone FOR IV USE 1,000 MG in WATER (STERILE) FOR INJECTION 10 ML IV SCH (15:59)
[2019-08-04 16:11] VITALS: BP 180/83
[2019-08-04] MEDS: ENOXAPARIN 40 MG/0.4 ML (LOVENOX) SYR SC SCH (18:20)
[2019-08-04] MEDS: KCL 20 MEQ POWDER FOR ORAL SOLUTION PO SCH (18:24)
[2019-08-04 23:57] VITALS: BP_SYST 150; BP_SYST 93; BP_DIAS 52; BP_DIAS 72
[2019-08-05] MEDS: HYDROcodone/APAP 5 MG/325 MG (LORTAB) TAB PO PRN (01:11)
[2019-08-05] MEDS: ONDANSETRON 4 MG/2 ML (SDV) Z0FRAN IVP PRN ×3 (01:11→20:51)
[2019-08-05 05:02] LABS: BASOPHILS % (AUTO) 0 % (0-10); EOSINOPHILS % (AUTO) 0 % (0-10); HEMATOCRIT 35 % (35-52); HEMOGLOBIN 11.7 G/DL (11.5-16.0); LYMPHOCYTES # (AUTO) 2.8 X 10^3 (1.0-4.0); LYMPHOCYTES % (AUTO) 23 % (12-44); MEAN CORPUSCULAR HEMOGLOBIN 30 PG (25-34); MEAN CORPUSCULAR HGB CONC 33 G/DL (32-36); MEAN CORPUSCULAR VOLUME 91 FL (80-99); MEAN PLATELET VOLUME 9.3 FL (7.4-10.4); MONOCYTES # (AUTO) 1.3 X 10^3 (0.0-1.0); MONOCYTES % (AUTO) 11 % (0-12); NEUTROPHILS # (AUTO) 8.1 X 10^3 (1.8-7.8); NEUTROPHILS % (AUTO) 66 % (42-75); PLATELET COUNT 350 10^3/uL (130-400); RED CELL DISTRIBUTION WIDTH 12.4 % (10.0-14.5); WHITE BLOOD COUNT 12.2 10^3/uL (4.3-11.0)
[2019-08-05 05:24] LABS: CHLORIDE 96 MMOL/L (98-107); POTASSIUM 2.6 MMOL/L (3.6-5.0); SODIUM 136 MMOL/L (135-145)
[2019-08-05 05:25] LABS: CALCIUM 8.3 MG/DL (8.5-10.1)
[2019-08-05 05:26] LABS: GLUCOSE 86 MG/DL (70-105)
[2019-08-05 05:27] LABS: CARBON DIOXIDE 25 MMOL/L (21-32)
[2019-08-05 05:30] LABS: CREATININE SERUM 0.73 MG/DL (0.60-1.30); GFR ESTIMATED > 60
[2019-08-05 05:31] LABS: BUN/CREATININE RATIO 12
[2019-08-05] MEDS: KCL 10 MEQ TAB (MICRO K) PO SCH ×2 (05:58→16:34)
[2019-08-05] MEDS: KCL 20 MEQ POWDER FOR ORAL SOLUTION PO SCH (05:58)
[2019-08-05] MEDS: SUCRALFATE 1 GM (CARAFATE) TAB PO SCH ×4 (05:58→20:45)
[2019-08-05] MEDS: inSUlin ASPART (NovoLOG) 1 UNIT/0.01 ML (CHARGE PER UNIT) SC SCH ×4 (06:01→20:46)
[2019-08-05] MEDS: COLESTIPOL 1 GM (COLESTID) TAB PO SCH ×2 (07:51→20:45)
[2019-08-05] MEDS: MIDODRINE 10 MG (PROAMATINE) TAB PO SCH ×3 (07:52→20:45)
[2019-08-05] MEDS: LIPASE/AMYLASE/PROTEASE (PANCRELIPASE) 5,000 UNITS CAP PO SCH ×4 (07:52→20:45)
[2019-08-05] MEDS: GABAPENTIN 100 MG (NEURONTIN) CAP PO SCH ×3 (07:53→20:45)
[2019-08-05] MEDS: FLUDROCORTISONE 0.1 MG (FLORINEF) TAB PO SCH (07:53)
[2019-08-05] MEDS: MAGNESIUM OXIDE (MAG-OX)400 MG TAB PO SCH (07:53)
[2019-08-05] MEDS: CYCLOBENZAPRINE 10 MG (FLEXERIL) TAB PO SCH ×3 (07:54→20:45)
[2019-08-05] MEDS: FAMOTIDINE 20 MG (PEPCID) TABLET PO SCH (07:54)
[2019-08-05 08:00] VITALS: BP 174/72
[2019-08-05] MEDS: POTASSIUM CL 10MEQ/50ML IVPB 50 ML IV SCH ×4 (09:01→12:36)
[2019-08-05] MEDS: NS IV 1000 ML 1,000 ML IV SCH ×2 (10:17→20:51)
[2019-08-05] MEDS: cefTRIAXone FOR IV USE 1,000 MG in WATER (STERILE) FOR INJECTION 10 ML IV SCH (15:05)
[2019-08-05 16:00] VITALS: BP 154/81
[2019-08-05] MEDS: ENOXAPARIN 40 MG/0.4 ML (LOVENOX) SYR SC SCH (17:53)
--- NOTE | 2019-08-05 21:08 | Progress Note ---
Subjective Subjective/Events-last exam Patient only tolerating CLD. States that her pain is much better. BM yesterday. Review of Systems Pulmonary: No Dyspnea, No Cough Cardiovascular: No: Chest Pain, Palpitations Gastrointestinal: Nausea; No: Vomiting, Diarrhea, Constipation Neurological: Weakness, Incoordination Objective Exam Last Set of Vital Signs Vital Signs Date Time Temp Pulse Resp B/P (MAP) Pulse Ox O2 Delivery O2 Flow Rate FiO2 08/05/19 16:00 36.6 86 18 154/81 (105) 96 Room Air Capillary Refill : Less Than 3 SecondsLess Than 3 Seconds I&O Intake and Output 08/05/19 00:00 Intake Total 3020 ml Output Total 2650 ml Balance 370 ml Intake Oral 1020 ml IV Total 2000 ml Output Urine Total 2650 ml General: Alert, Oriented X3, Cooperative, No Acute Distress Lungs: Clear to Auscultation, Normal Air Movement Heart: Regular Rate, No Murmurs Abdomen: Normal Bowel Sounds, Soft, No Tenderness, No Masses Extremities: No Edema, No Tenderness/Swelling Results/Procedures Lab Laboratory Tests 08/05/19 04:36: White Blood Count 12.2H, Red Blood Count 3.88L, Hemoglobin 11.7, Hematocrit 35, Mean Corpuscular Volume 91, Mean Corpuscular Hemoglobin 30, Mean Corpuscular Hemoglobin Concent 33, Red Cell Distribution Width 12.4, Platelet Count 350, Mean Platelet Volume 9.3, Neutrophils (%) (Auto) 66, Lymphocytes (%) (Auto) 23, Monocytes (%) (Auto) 11, Eosinophils (%) (Auto) 0, Basophils (%) (Auto) 0, Neutrophils # (Auto) 8.1H, Lymphocytes # (Auto) 2.8, Monocytes # (Auto) 1.3H, Eosinophils # (Auto) 0.0, Basophils # (Auto) 0.0, Sodium Level 136, Potassium L evel 2.6L, Chloride Level 96L, Carbon Dioxide Level 25, Anion Gap 15H, Blood Urea Nitrogen 9, Creatinine 0.73, Estimat Glomerular Filtration Rate > 60, BUN/Creatinine Ratio 12, Glucose Level 86, Calcium Level 8.3L 08/05/19 11:15: Glucometer 107 08/05/19 15:53: Glucometer 101 08/05/19 20:44: Glucometer 113H Microbiology 08/02/19 Blood Culture - Preliminary, Resulted No growth 08/02/19 Urine Culture - Final, Complete Escherichia coli Assessment/Plan Assessment/Plan (1) Sepsis Status: Resolved Qualifiers: Qualified Codes: A41.9 - Sepsis, unspecified organism (2) Acute UTI Status: Acute Assessment & Plan: 08/03: Continue IV antibiotics as patient is not tolerating PO at this time, Will decrease IVFs to encourage PO hydration 08/04: Continue IV antibiotics (3) Abdominal pain Status: Acute Assessment & Plan: 08/03: Ct Abd/Pelvis w/o any acute finding yesterday, pain is improving, advance diet as tolerated Qualifiers: Qualified Codes: R10.13 - Epigastric pain (4) Hypokalemia Status: Acute Assessment & Plan: 08/03: Replace and repeat BMP in AM 08/04: Replace IV and repeat BMP (5) Neurogenic bladder Status: Chronic (6) Headache Status: Acute Assessment & Plan: 08/03: Will d/c fluids as blood pressure was up overnight, Tylenol for pain Qualifiers: (7) Diabetes mellitus Status: Chronic (8) DVT prophylaxis Status: Acute Assessment & Plan: - Lovenox Clinical Quality Measures DVT/VTE Risk/Contraindication: Risk Factor Score Per Nursin RFS Level Per Nursing on Admit: 4+=Very High KURT TEMPLE MD Aug 05, 2019 21:07
[2019-08-05 23:56] VITALS: BP 148/82
[2019-08-06 05:51] LABS: BASOPHILS % (AUTO) 0 % (0-10); EOSINOPHILS % (AUTO) 0 % (0-10); HEMATOCRIT 34 % (35-52); HEMOGLOBIN 11.1 G/DL (11.5-16.0); LYMPHOCYTES # (AUTO) 3.3 X 10^3 (1.0-4.0); LYMPHOCYTES % (AUTO) 26 % (12-44); MEAN CORPUSCULAR HEMOGLOBIN 30 PG (25-34); MEAN CORPUSCULAR HGB CONC 33 G/DL (32-36); MEAN CORPUSCULAR VOLUME 91 FL (80-99); MEAN PLATELET VOLUME 9.8 FL (7.4-10.4); MONOCYTES # (AUTO) 1.5 X 10^3 (0.0-1.0); MONOCYTES % (AUTO) 12 % (0-12); NEUTROPHILS # (AUTO) 7.8 X 10^3 (1.8-7.8); NEUTROPHILS % (AUTO) 62 % (42-75); PLATELET COUNT 340 10^3/uL (130-400); RED CELL DISTRIBUTION WIDTH 12.5 % (10.0-14.5); WHITE BLOOD COUNT 12.6 10^3/uL (4.3-11.0)
[2019-08-06 06:00] LABS: CHLORIDE 96 MMOL/L (98-107); POTASSIUM 2.7 MMOL/L (3.6-5.0); SODIUM 137 MMOL/L (135-145)
[2019-08-06 06:01] LABS: CALCIUM 8.4 MG/DL (8.5-10.1)
[2019-08-06 06:02] LABS: GLUCOSE 85 MG/DL (70-105)
[2019-08-06 06:03] LABS: CARBON DIOXIDE 26 MMOL/L (21-32)
[2019-08-06] MEDS: inSUlin ASPART (NovoLOG) 1 UNIT/0.01 ML (CHARGE PER UNIT) SC SCH ×4 (06:05→21:08)
[2019-08-06 06:06] LABS: BUN/CREATININE RATIO 13; CREATININE SERUM 0.71 MG/DL (0.60-1.30); GFR ESTIMATED > 60
[2019-08-06] MEDS: SUCRALFATE 1 GM (CARAFATE) TAB PO SCH ×4 (06:21→21:08)
[2019-08-06] MEDS: KCL 10 MEQ TAB (MICRO K) PO SCH ×2 (06:21→18:02)
[2019-08-06 08:00] VITALS: BP 117/69
[2019-08-06] MEDS: ONDANSETRON 4 MG/2 ML (SDV) Z0FRAN IVP PRN (08:32)
[2019-08-06] MEDS: MIDODRINE 10 MG (PROAMATINE) TAB PO SCH ×3 (08:33→21:07)
[2019-08-06] MEDS: CYCLOBENZAPRINE 10 MG (FLEXERIL) TAB PO SCH ×3 (08:33→21:07)
[2019-08-06] MEDS: MAGNESIUM OXIDE (MAG-OX)400 MG TAB PO SCH (08:33)
[2019-08-06] MEDS: GABAPENTIN 100 MG (NEURONTIN) CAP PO SCH ×3 (08:33→21:08)
[2019-08-06] MEDS: FLUDROCORTISONE 0.1 MG (FLORINEF) TAB PO SCH (08:33)
[2019-08-06] MEDS: LIPASE/AMYLASE/PROTEASE (PANCRELIPASE) 5,000 UNITS CAP PO SCH ×4 (08:33→21:07)
[2019-08-06] MEDS: FAMOTIDINE 20 MG (PEPCID) TABLET PO SCH (08:33)
[2019-08-06] MEDS: COLESTIPOL 1 GM (COLESTID) TAB PO SCH ×2 (08:34→21:08)
--- NOTE | 2019-08-06 10:04 | NUR ---
RETURNED CALL TO GRETEL (DAUGHTER) PASSWORD RECEIVED,UPDATED GIVEN PER REQUEST
[2019-08-06] MEDS: PROMETHAZINE 25 MG (PHENERGAN) TAB PO PRN (10:21)
[2019-08-06] MEDS: NS IV 1000 ML 1,000 ML IV SCH (12:58)
--- NOTE | 2019-08-06 13:36 | NUR ---
"RD ASSESSMENT PMHx: HTN; hypotension; GERD; DM PT INTERACTION: Pt was awake and pleasant during nutrition follow-up. Pt states she is eating a little bit since last assessment. Note avg PO intake fo <25% x2d, and pt has been refusing meals per chart review. Pt states some issues of nausea/vomiting since last assessment. Pt states no issues with constipation or diarrhea, and that she has not had a BM since 08/01. Note pt not currently on bowel regimen per chart review. ABNORMAL NUTRITION-RELATED LAB VALUES LOW: K 2.7; Cl 97; Ca 8.4 HIGH: Est. kcal needs: 7859-8673 kcal | 25-30 kcal/kg Est. Pro needs: 60-72 g Pro | 1.0-1.2 g Pro/kg PES STATEMENT: Inadequate oral intake (NI-2.1) related to loss of appetite | nausea | vomiting as evidenced by pt interview | avg PO intake <25% x2d INTERVENTION: Continue with current diet order of CHO 60g/m 3snack diet. Encouraged pt to eat when able. Add Glucerna (vary) to meals TID, for increased kcal intake. Provides 220 kcal and 10 g Pro per serving. Will continue to follow and reassess as pt needs, intake, and status change. MONITOR/EVALUATE: PO Intake; Plan of Care; Hydration Status; Weight Status; Lab Values Jimmy Boykin, , RD, LD"
--- NOTE | 2019-08-06 14:08 | Physical Therapy Evaluation ---
PT Evaluation-General Medical Diagnosis Admission Date Aug 02, 2019 at 15:55 Medical Diagnosis: sepsis Onset Date: Aug 06, 2019 Therapy Diagnosis Therapy Diagnosis: difficulty walking Height/Weight Height (Feet): 5 Height (Inches): 2.00 Weight (Pounds): 144 Weight (Ounces): 0.9 Precautions Precautions/Isolations: Fall Prevention, Standard Precautions Weight Bear Status Full Weight Bearing Full Weight Bearing Referral Reason for Referral: Evaluation/Treatment Medical History Pertinent Medical History: DM Social History Home: Single Level Current Living Status: Spouse Entry Into Home: Ramp Prior Prior Level of Function SCALE: Activities may be completed with or without assistive devices. 4-Yjtqzvejcy-lzabige completes the activity by him/herself with no assistance from a helper. 5-Set-up or Clean-up Assistance-helper sets up or cleans up; patient completes activity. Gattman assists only prior to or following the activity. 4-Supervision or Touching Assistance-helper provides verbal cues and/or touching/steadying and/or contact guard assistance as patient completes activity. Assistance may be provided throughout the activity or intermittently. 3-Partial/Moderate Assistance-helper does LESS THAN HALF the effort. Gattman lifts, holds or supports trunk or limbs, but provides less than half the effort. 2-Substantial/Maximal Assistance-helper does MORE THAN HALF the effort. Gattman lifts or holds trunk or limbs and provides more than half the effort. 8-Zmvsukpbt-twilct does ALL the effort. Patient does none of the effort to complete the activity. Or, the assistance of 2 or more helpers is required for the patient to complete the activity. If activity was not attempted, code reason: 7-Patient Refused. 9-Not Applicable-not attempted and the patient did not perform the activity before the current illness, exacerbation or injury. 10-Not Attempted due to Environmental Limitations-(lack of equipment, weather restraints, etc.). 88-Not Attempted due to Medical Conditions or Safety Concerns. Bed Mobility: 6 Transfers (B,C,W/C): 6 Gait: 5 Stairs: 6 Indoor Mobility (Ambulation): Independent Stairs: Independent Prior Devices Use: Walker PT Evaluation-Current Subjective The patient states that she has a headache today. Pain Numeric Pain Scale: 3 ROM/Strength ROM Lower Extremities WFL Strength Lower Extremities 4 Transfers Roll Left to Right (QC): 5 Sit to Lying (QC): 5 Lying to Sitting/Side of Bed(Q: 5 Sit to Stand (QC): 5 Gait Does the Patient Walk?: Yes Mode of Locomotion: Walk Anticipated Mode of Locomotion: Walk Walk 10 feet (QC): 88 Walk 50 ft with 2 Turns(QC): 88 Walk 150 ft (QC): 88 Walking 10ft/uneven surface-QC: 88 Distance: 1' Gait Assistive Device: FWW Balance Sitting Static: Good Sitting Dynamic: Fair Standing Static: Fair Assessment/Needs 69 y.o. female with a diagnosis of sepsis. She has significant weakness and decreased endurance. She should do well with skilled therapy and be safe to return home when medically stable. Rehab Potential: Good PT Short Term Goals Short Term Goals Time Frame: Aug 13, 2019 Roll Left & Right: 5 Sit to lyin Lying to sitting on side of be: 5 Sit to stand: 5 Chair/fsi-wl-pmskf transfer: 5 Toilet transfer: 5 Car transfer: 5 Walk 10 feet: 4 Walk 50 feet with two turns: 4 Walk 150 feet: 4 Walking 10ft on uneven surface: 4 1 step (curb): 4 4 steps: 4 12 steps: 4 Picking up objects: 4 PT [employer] Goals Senior Care Goals PT [employer] Goals Time Frame: Aug 20, 2019 Roll Left & Right (QC): 6 Sit to Lying (QC): 6 Lying-Sitting on Side/Bed(QC): 6 Sit to Stand (QC): 6 Chair/Hwg-zc-Qivvu Xfer(QC): 6 Toilet Transfer (QC): 6 Car Transfer (QC): 6 Does the Patient Walk: Yes Walk 10 feet (QC): 6 Walk 50ft with 2 Turns (QC): 6 Walk 150 ft (QC): 6 Walking 10ft on Uneven Surface: 6 1 Step (curb) (QC): 6 4 Steps (QC): 6 12 Steps (QC): 6 Picking up an Object (QC): 6 PT Plan Problem List Problem List: Activity Tolerance, Functional Strength, Safety, Balance, Gait, Transfer, Bed Mobility Treatment/Plan Treatment Plan: Continue Plan of Care Treatment Plan: Bed Mobility, Functional Activity Bushra, Functional Strength, Gait, Safety, Therapeutic Exercise, Transfers Treatment Duration: Aug 20, 2019 Frequency: 6 times per week Estimated Hrs Per Day: .5 hour per day Time/GCodes Time In: 1345 Time Out: 1400 Total Billed Treatment Time: 15 Total Billed Treatment 1, EV Low Complexity x 15' SANFORD HOFFMAN PT Aug 06, 2019 14:08
[2019-08-06] MEDS: cefTRIAXone FOR IV USE 1,000 MG in WATER (STERILE) FOR INJECTION 10 ML IV SCH (14:50)
--- NOTE | 2019-08-06 15:00 | NUR ---
Report from Alfonzo BLACK, will assume care of patient at this time.
--- NOTE | 2019-08-06 15:00 | NUR ---
Pastoral care visit.
[2019-08-06] MEDS ORDERED: KCL 20 MEQ TAB (K-DUR) PO NR (15:15)
--- NOTE | 2019-08-06 15:23 | Progress Note ---
Subjective Subjective/Events-last exam Patient states that her pain is improving. Still not taking much PO. Review of Systems Pulmonary: No Dyspnea, No Cough Cardiovascular: No: Chest Pain, Palpitations, Orthopnea Gastrointestinal: Nausea, Abdominal Pain Genitourinary: No Dysuria, No Frequency, No Incontinence Neurological: Weakness, Incoordination Objective Exam Last Set of Vital Signs Vital Signs Date Time Temp Pulse Resp B/P (MAP) Pulse Ox O2 Delivery O2 Flow Rate FiO2 08/06/19 08:00 36.8 81 18 117/69 (85) 95 Room Air Capillary Refill : Less Than 3 SecondsLess Than 3 Seconds I&O Intake and Output 08/06/19 00:00 Intake Total 2160 ml Output Total 3050 ml Balance -890 ml Intake Oral 1160 ml IV Total 1000 ml Output Urine Total 3050 ml General: Alert, Oriented X3, Cooperative, No Acute Distress Lungs: Clear to Auscultation, Normal Air Movement Heart: Regular Rate, No Murmurs Abdomen: Normal Bowel Sounds, No Tenderness, No Masses, Other (mild ttp epigastric region) Extremities: No Edema, No Tenderness/Swelling Skin: No Rashes, No Breakdown Neuro: Normal Speech, Strength at 5/5 X4 Ext, Sensation Intact, Cranial Nerves 3-12 NL Results/Procedures Lab Laboratory Tests 08/05/19 15:53: Glucometer 101 08/05/19 20:44: Glucometer 113H 08/06/19 05:10: White Blood Count 12.6H, Red Blood Count 3.72L, Hemoglobin 11.1L, Hematocrit 34L , Mean Corpuscular Volume 91, Mean Corpuscular Hemoglobin 30, Mean Corpuscular Hemoglobin Concent 33, Red Cell Distribution Width 12.5, Platelet Count 340, Mean Platelet Volume 9.8, Neutrophils (%) (Auto) 62, Lymphocytes (%) (Auto) 26, Monocytes (%) (Auto) 12, Eosinophils (%) (Auto) 0, Basophils (%) (Auto) 0, Neutrophils # (Auto) 7.8, Lymphocytes # (Auto) 3.3, Monocytes # (Auto) 1.5H, Eosinophils # (Auto) 0.0, Basophils # (Auto) 0.0, Sodium Level 137, Potassium Level 2.7L, Chloride Level 96L, Carbon Dioxide Level 26, Anion Gap 15H, Blood Urea Nitrogen 9, Creatinine 0.71, Estimat Glomerular Filtration Rate > 60, BUN/Creatinine Ratio 13, Glucose Level 85, Calcium Level 8.4L 08/06/19 10:48: Glucometer 107 Microbiology 08/02/19 Blood Culture - Preliminary, Resulted No growth 08/02/19 Urine Culture - Final, Complete Escherichia coli Assessment/Plan Assessment/Plan (1) Sepsis Status: Resolved Qualifiers: Qualified Codes: A41.9 - Sepsis, unspecified organism (2) Acute UTI Status: Acute Assessment & Plan: 08/03: Continue IV antibiotics as patient is not tolerating PO at this time, Will decrease IVFs to encourage PO hydration 08/04: Continue IV antibiotics 08/05: D/c IVFs, will transition to PO antibiotics tomorrow (3) Abdominal pain Status: Acute Assessment & Plan: 08/03: Ct Abd/Pelvis w/o any acute finding yesterday, pain is improving, advance diet as tolerated Qualifiers: Qualified Codes: R10.13 - Epigastric pain (4) Hypokalemia Status: Acute Assessment & Plan: 08/03: Replace and repeat BMP in AM 08/04: Replace IV and repeat BMP (5) Neurogenic bladder Status: Chronic Assessment & Plan: 08/05: D/c moreno, patient to straight cath q 6hrs (6) Headache Status: Acute Assessment & Plan: 08/03: Will d/c fluids as blood pressure was up overnight, Tylenol for pain Qualifiers: (7) Diabetes mellitus Status: Chronic (8) DVT prophylaxis Status: Acute Assessment & Plan: - Lovenox Clinical Quality Measures DVT/VTE Risk/Contraindication: Risk Factor Score Per Nursin RFS Level Per Nursing on Admit: 4+=Very High KURT TEMPLE MD Aug 06, 2019 15:23
[2019-08-06 16:00] VITALS: BP 161/89
[2019-08-06] MEDS: ENOXAPARIN 40 MG/0.4 ML (LOVENOX) SYR SC SCH (18:02)
[2019-08-06] MEDS: HYDROcodone/APAP 5 MG/325 MG (LORTAB) TAB PO PRN (18:08)
--- NOTE | 2019-08-06 21:00 | NUR ---
Dr. Riley notified of more than adequate output. New order rec to discontinue IVF's.
[2019-08-06 23:55] VITALS: BP 120/71
[2019-08-07] MEDS: inSUlin ASPART (NovoLOG) 1 UNIT/0.01 ML (CHARGE PER UNIT) SC SCH ×4 (05:28→20:58)
[2019-08-07] MEDS: KCL 10 MEQ TAB (MICRO K) PO SCH ×2 (05:44→17:52)
[2019-08-07] MEDS: SUCRALFATE 1 GM (CARAFATE) TAB PO SCH ×4 (05:44→20:54)
[2019-08-07 07:13] LABS: BUN/CREATININE RATIO 12; CALCIUM 8.9 MG/DL (8.5-10.1); CARBON DIOXIDE 30 MMOL/L (21-32); CHLORIDE 94 MMOL/L (98-107); CREATININE SERUM 0.82 MG/DL (0.60-1.30); GFR ESTIMATED > 60; GLUCOSE 143 MG/DL (70-105); POTASSIUM 2.6 MMOL/L (3.6-5.0); SODIUM 137 MMOL/L (135-145)
[2019-08-07 08:00] VITALS: BP 108/69
[2019-08-07] MEDS: MAGNESIUM OXIDE (MAG-OX)400 MG TAB PO SCH (08:27)
[2019-08-07] MEDS: GABAPENTIN 100 MG (NEURONTIN) CAP PO SCH ×3 (08:27→20:54)
[2019-08-07] MEDS: FLUDROCORTISONE 0.1 MG (FLORINEF) TAB PO SCH (08:27)
[2019-08-07] MEDS: FAMOTIDINE 20 MG (PEPCID) TABLET PO SCH (08:27)
[2019-08-07] MEDS: COLESTIPOL 1 GM (COLESTID) TAB PO SCH ×2 (08:27→20:54)
[2019-08-07] MEDS: CYCLOBENZAPRINE 10 MG (FLEXERIL) TAB PO SCH ×3 (08:27→20:55)
[2019-08-07] MEDS: LIPASE/AMYLASE/PROTEASE (PANCRELIPASE) 5,000 UNITS CAP PO SCH ×4 (08:28→20:55)
[2019-08-07] MEDS: MIDODRINE 10 MG (PROAMATINE) TAB PO SCH ×3 (08:28→20:56)
[2019-08-07 09:30] VITALS: BP 146/45
--- NOTE | 2019-08-07 09:30 | NUR ---
Sissy PT in pt's room helping move pt to chair. Sissy notified this RN that pt passed out while attempting to move to chair. Vital signs were taken at this time BP 146/ Addendum: 08/07/19 at 1002 by OTILIA WINTER RN Continued note: 146/45, HR 77, O2 94%, T 36.2, R 16. Blood sugar at this time was 152. 0935: 80/46 BP while standing. Pt experiencing some orthostatic Hypotension. Pt up in chair now.
[2019-08-07 09:35] VITALS: BP 80/46
[2019-08-07 09:52] VITALS: BP 130/76
--- NOTE | 2019-08-07 10:17 | Physical Therapy Daily Note ---
PT Daily Note-Current Subjective Patient is in bed and agrees to PT. Patient reports she is going home today. Mental Status Patient Orientation: Normal For Age Transfers SCALE: Activities may be completed with or without assistive devices. 6-Gsqifxzapm-ytvehvu completes the activity by him/herself with no assistance from a helper. 5-Set-up or Clean-up Assistance-helper sets up or cleans up; patient completes activity. [place]o assists only prior to or following the activity. 4-Supervision or Touching Assistance-helper provides verbal cues and/or touching/steadying and/or contact guard assistance as patient completes activity. Assistance may be provided throughout the activity or intermittently. 3-Partial/Moderate Assistance-helper does LESS THAN HALF the effort. Lopeno lif ts, holds or supports trunk or limbs, but provides less than half the effort. 2-Substantial/Maximal Assistance-helper does MORE THAN HALF the effort. [place]o lifts or holds trunk or limbs and provides more than half the effort. 7-Xccivuxjq-fywnib does ALL the effort. Patient does none of the effort to complete the activity. Or, the assistance of 2 or more helpers is required for the patient to complete the activity. If activity was not attempted, code reason: 7-Patient Refused. 9-Not Applicable-not attempted and the patient did not perform the activity before the current illness, exacerbation or injury. 10-Not Attempted due to Environmental Limitations-(lack of equipment, weather restraints, etc.). 88-Not Attempted due to Medical Conditions or Safety Concerns. Roll Left & Right (QC): 4 Lying to Sitting/Side of Bed(Q: 4 Sit to Stand (QC): 4 Weight Bearing Full Weight Bearing Full Weight Bearing Gait Training Does the Patient Walk?: Yes Distance: 10' Walk 10 feet (QC): 3 Walk 50 ft with 2 Turns(QC): 88 Walk 150 ft (QC): 88 Gait Assistive Device: FWW Treatments During treatment, patient had syncopal episode in stand requiring dependent assist x 2 to chair safely. RN and COMPREHENSIVE OPHTHALMOLOGIST present to perform vitals in sit after recovery (refer to nursing notes for exact BP levels, however, 140's/70's) . PT and nursing performed orthostatic BP in stand with patient unable to maintain due to near syncopal episode with resulting BP of 80/40's. Patient is alert after recovery and nursing request patient remain in chair for positional change. Blood sugar levels taken during episode of 152. Assessment Patient had syncopal episode in stand during PT treatment requiring dependent assist of 2 to chair. From a PT standpoint, patient is not safe to return to home due to BP issues and inability to safely perform gross motor skills. RN agrees and confirms. PT Short Term Goals Short Term Goals Time Frame: Aug 13, 2019 Roll Left & Right: 5 Sit to lyin Lying to sitting on side of be: 5 Sit to stand: 5 Chair/kmi-gp-yfyyp transfer: 5 Toilet transfer: 5 Car transfer: 5 Walk 10 feet: 4 Walk 50 feet with two turns: 4 Walk 150 feet: 4 Walking 10ft on uneven surface: 4 1 step (curb): 4 4 steps: 4 12 steps: 4 Picking up objects: 4 PT Assisted Goals Economic Research Assistant Goals PT Economic Research Assistant Goals Time Frame: Aug 20, 2019 Roll Left & Right (QC): 6 Sit to Lying (QC): 6 Lying-Sitting on Side/Bed(QC): 6 Sit to Stand (QC): 6 Chair/Lol-mw-Nxqgi Xfer(QC): 6 Toilet Transfer (QC): 6 Car Transfer (QC): 6 Does the Patient Walk: Yes Walk 10 feet (QC): 6 Walk 50ft with 2 Turns (QC): 6 Walk 150 ft (QC): 6 Walking 10ft on Uneven Surface: 6 1 Step (curb) (QC): 6 4 Steps (QC): 6 12 Steps (QC): 6 Picking up an Object (QC): 6 PT Plan Treatment/Plan Treatment Plan: Continue Plan of Care Treatment Plan: Bed Mobility, Functional Activity Bushra, Functional Strength, Gait, Safety, Therapeutic Exercise, Transfers Treatment Duration: Aug 20, 2019 Frequency: 6 times per week Estimated Hrs Per Day: .5 hour per day Time/GCodes Time In: 910 Time Out: 938 Total Billed Treatment Time: 28 Total Billed Treatment 1 visit FA x 2 28 min AARON SHAH PT Aug 07, 2019 10:17
[2019-08-07 12:07] VITALS: BP 129/67
--- NOTE | 2019-08-07 12:10 | Progress Note ---
Subjective Subjective/Events-last exam Patient states that her pain is improving she tolerated sandwich this AM. She did have an episode of orthostatic hypotension. Review of Systems Pulmonary: No Dyspnea, No Cough Cardiovascular: Lt Headedness; No: Chest Pain, Palpitations Gastrointestinal: Abdominal Pain; No: Nausea, Vomiting Neurological: Weakness, Incoordination Objective Exam Last Set of Vital Signs Vital Signs Date Time Temp Pulse Resp B/P (MAP) Pulse Ox O2 Delivery O2 Flow Rate FiO2 08/07/19 09:52 130/76 (94) 08/07/19 09:30 36.2 77 16 94 Room Air Capillary Refill : Less Than 3 SecondsLess Than 3 Seconds I&O Intake and Output 08/07/19 00:00 Intake Total 3680 ml Output Total 3400 ml Balance 280 ml Intake Oral 2080 ml IV Total 1600 ml Output Urine Total 3400 ml General: Alert, Oriented X3, Cooperative, No Acute Distress Lungs: Clear to Auscultation, Normal Air Movement Heart: Regular Rate, No Murmurs Abdomen: Normal Bowel Sounds, Soft, No Tenderness, No Masses Extremities: No Edema, No Tenderness/Swelling Neuro: Other (LE strength 3/5) Results/Procedures Lab Laboratory Tests 08/06/19 16:06: Glucometer 114H 08/06/19 20:44: Glucometer 121H 08/07/19 05:19: Glucometer 158H 08/07/19 05:25: Sodium Level 137, Potassium Level 2.6L, Chloride Level 94L, Carbon Dioxide Level 30, Anion Gap 13, Blood Urea Nitrogen 10, Creatinine 0.82, Estimat Glomerular Filtration Rate > 60, BUN/Creatinine Ratio 12, Glucose Level 143H, Calcium Level 8.9 08/07/19 09:30: Glucometer 152H 08/07/19 11:10: Glucometer 189H Microbiology 08/02/19 Blood Culture - Preliminary, Resulted No growth 08/02/19 Urine Culture - Final, Complete Escherichia coli Assessment/Plan Assessment/Plan (1) Sepsis Status: Resolved Qualifiers: Qualified Codes: A41.9 - Sepsis, unspecified organism (2) Acute UTI Status: Acute Assessment & Plan: 08/03: Continue IV antibiotics as patient is not tolerating PO at this time, Will decrease IVFs to encourage PO hydration 08/04: Continue IV antibiotics 08/05: D/c IVFs, will transition to PO antibiotics tomorrow 08/06: Transitioned to Cefdinir for an additional 3 days, Moreno was removed ye sterday, Continue q 6hr self cath (3) Abdominal pain Status: Resolved Assessment & Plan: 08/03: Ct Abd/Pelvis w/o any acute finding yesterday, pain is improving, advance diet as tolerated Qualifiers: Qualified Codes: R10.13 - Epigastric pain (4) Hypokalemia Status: Acute Assessment & Plan: 08/03: Replace and repeat BMP in AM 08/04: Replace IV and repeat BMP (5) Neurogenic bladder Status: Chronic Assessment & Plan: 08/05: D/c moreno, patient to straight cath q 6hrs (6) Headache Status: Resolved Assessment & Plan: 08/03: Will d/c fluids as blood pressure was up overnight, Tylenol for pain Qualifiers: (7) Diabetes mellitus Status: Chronic (8) Unsteady gait Status: Acute Assessment & Plan: 08/06: PT seeing patient, she was unable to ambulate and required assist x3, recommend SNF for therapies as patient is not safe to return home at this time and is a fall risk (9) Physical debility Status: Acute (10) DVT prophylaxis Status: Acute Assessment & Plan: - Lovenox Clinical Quality Measures DVT/VTE Risk/Contraindication: Risk Factor Score Per Nursin RFS Level Per Nursing on Admit: 4+=Very High KURT TEMPLE MD Aug 07, 2019 12:09
[2019-08-07] MEDS: CEFDINIR 300 MG (OMNICEF) CAP PO SCH ×2 (12:30→20:54)
[2019-08-07] MEDS ORDERED: NS IV 500 ML 500 ML IV SCH (12:30)
[2019-08-07] MEDS: POTASSIUM CL 10MEQ/50ML IVPB 50 ML IV SCH ×2 (12:30→13:50)
[2019-08-07] MEDS ORDERED: NS IV 500 ML 500 ML IV ONE (12:45)
[2019-08-07] MEDS: ACETAMINOPHEN 500 MG TAB (TYLENOL) PO PRN (14:38)
[2019-08-07 16:00] VITALS: BP 189/83
[2019-08-07] MEDS: ENOXAPARIN 40 MG/0.4 ML (LOVENOX) SYR SC SCH (17:53)
--- NOTE | 2019-08-07 23:57 | NUR ---
1999-pt voices that she is having back pain-pt reports chronic back pain-this rn discussed current medications with pt, pt states that she would like to take her scheduled gabapentin & Flexeril to see if that will help manage the back pain. 2019-pt daughter called. 2022-this rn returned the daughter's call (Rafael) after speaking with the pt first, pt agreed for this rn to speak with her. pt daughter provided pt password also. During this call pt daughter stated that this pt takes Ultram at night & uses a lidocaine cream on her back for pain management. pt daughter requested that if possible these medications be started. this rn assured pt daughter that I would contact the doctor about further pain management. 2109-this rn called Dr. Riley about pt pain, pt & pt's daughter request for further pain management (Ultram & lidocaine cream). pain currently 8/10 numerically. this rn received an order for the ultram. order read back & Dr. Riley agreed. 2129-pt was informed of new medication order-pt stated "ok, I'll let you know for sure if I need it."
[2019-08-08 00:07] VITALS: BP 135/68
--- NOTE | 2019-08-08 06:00 | NUR ---
2251-pt requesting dr. bradford be notified that she would like an xray of her back. pt reports that her back hurts more since her passing out episode earlier in the day. dr. matos notified-no new orders at this time. 599-pt requesting dr. matos be notified again that she would like an xray of her back. this rn spoke with dr. matos on the phone. no new orders at this time. this rn was informed that dr. matos would evaluate the patient when she arrives. 609-pt informed that dr. matos would evaluate her upon her arrival.
[2019-08-08 06:03] LABS: BASOPHILS % (AUTO) 0 % (0-10); EOSINOPHILS # (AUTO) 0.1 10^3/uL (0.0-0.3); EOSINOPHILS % (AUTO) 1 % (0-10); HEMATOCRIT 35 % (35-52); HEMOGLOBIN 11.5 G/DL (11.5-16.0); LYMPHOCYTES # (AUTO) 2.1 X 10^3 (1.0-4.0); LYMPHOCYTES % (AUTO) 21 % (12-44); MEAN CORPUSCULAR HEMOGLOBIN 30 PG (25-34); MEAN CORPUSCULAR HGB CONC 33 G/DL (32-36); MEAN CORPUSCULAR VOLUME 91 FL (80-99); MEAN PLATELET VOLUME 9.4 FL (7.4-10.4); MONOCYTES # (AUTO) 0.9 X 10^3 (0.0-1.0); MONOCYTES % (AUTO) 10 % (0-12); NEUTROPHILS # (AUTO) 6.6 X 10^3 (1.8-7.8); NEUTROPHILS % (AUTO) 68 % (42-75); PLATELET COUNT 320 10^3/uL (130-400); RED CELL DISTRIBUTION WIDTH 12.8 % (10.0-14.5); WHITE BLOOD COUNT 9.7 10^3/uL (4.3-11.0)
[2019-08-08 06:15] LABS: CHLORIDE 93 MMOL/L (98-107); SODIUM 136 MMOL/L (135-145)
[2019-08-08 06:16] LABS: CALCIUM 9.4 MG/DL (8.5-10.1)
[2019-08-08 06:17] LABS: GLUCOSE 212 MG/DL (70-105)
[2019-08-08 06:18] LABS: CARBON DIOXIDE 31 MMOL/L (21-32)
[2019-08-08 06:21] LABS: BUN/CREATININE RATIO 11; CREATININE SERUM 0.81 MG/DL (0.60-1.30); GFR ESTIMATED > 60
[2019-08-08] MEDS: SUCRALFATE 1 GM (CARAFATE) TAB PO SCH ×4 (07:30→21:02)
[2019-08-08] MEDS: inSUlin ASPART (NovoLOG) 1 UNIT/0.01 ML (CHARGE PER UNIT) SC SCH ×4 (07:30→21:06)
[2019-08-08] MEDS: KCL 10 MEQ TAB (MICRO K) PO SCH ×2 (07:30→15:01)
[2019-08-08 08:24] VITALS: BP 184/83
[2019-08-08] MEDS: GABAPENTIN 100 MG (NEURONTIN) CAP PO SCH ×3 (08:39→21:03)
[2019-08-08] MEDS: ONDANSETRON 4 MG (ZOFRAN) ORAL DISSOLVE TAB PO PRN (08:39)
[2019-08-08] MEDS: MIDODRINE 10 MG (PROAMATINE) TAB PO SCH ×3 (08:39→21:03)
[2019-08-08] MEDS: CEFDINIR 300 MG (OMNICEF) CAP PO SCH ×2 (08:39→21:03)
[2019-08-08] MEDS: MAGNESIUM OXIDE (MAG-OX)400 MG TAB PO SCH (08:39)
[2019-08-08] MEDS: LIPASE/AMYLASE/PROTEASE (PANCRELIPASE) 5,000 UNITS CAP PO SCH ×4 (08:40→21:02)
[2019-08-08] MEDS: CYCLOBENZAPRINE 10 MG (FLEXERIL) TAB PO SCH ×3 (08:41→21:03)
[2019-08-08] MEDS: FLUDROCORTISONE 0.1 MG (FLORINEF) TAB PO SCH (08:41)
[2019-08-08] MEDS: COLESTIPOL 1 GM (COLESTID) TAB PO SCH ×2 (08:42→21:03)
[2019-08-08] MEDS: FAMOTIDINE 20 MG (PEPCID) TABLET PO SCH (08:42)
[2019-08-08 12:00] VITALS: BP 138/64
--- NOTE | 2019-08-08 12:04 | Discharge Summary ---
Diagnosis/Chief Complaint Date of Admission Aug 02, 2019 at 15:55 Date of Discharge 08/08/2019 Admission Diagnosis Admission Diagnosis See problem list Discharge Diagnosis See Below Problems/Diagnosis: (1) Sepsis Qualifiers: Qualified Codes: A41.9 - Sepsis, unspecified organism Status: Resolved Resolution Date/Time: 08/04/19 @ 11:14 (2) Acute UTI Assessment & Plan: 08/03: Continue IV antibiotics as patient is not tolerating PO at this time, Will decrease IVFs to encourage PO hydration 08/04: Continue IV antibiotics 08/05: D/c IVFs, will transition to PO antibiotics tomorrow 08/06: Transitioned to Cefdinir for an additional 3 days, Moreno was removed yesterday, Continue q 6hr self cath 08/07: Finish PO antibiotics Status: Acute (3) Abdominal pain Assessment & Plan: 08/03: Ct Abd/Pelvis w/o any acute finding yesterday, pain is improving, advance diet as tolerated Qualifiers: Qualified Codes: R10.13 - Epigastric pain Status: Resolved Resolution Date/Time: 08/07/19 @ 12:08 (4) Hypokalemia Assessment & Plan: 08/03: Replace and repeat BMP in AM 08/04: Replace IV and repeat BMP Status: Acute (5) Neurogenic bladder Assessment & Plan: 08/05: D/c moreno, patient to straight cath q 6hrs Status: Chronic (6) Headache Assessment & Plan: 08/03: Will d/c fluids as blood pressure was up overnight, Tylenol for pain Qualifiers: Status: Resolved Resolution Date/Time: 08/07/19 @ 12:08 (7) Diabetes mellitus Status: Chronic (8) Unsteady gait Assessment & Plan: 08/06: PT seeing patient, she was unable to ambulate and required assist x3, recommend SNF for therapies as patient is not safe to return home at this time and is a fall risk 08/07: Patient to IRF Status: Acute (9) Physical debility Status: Acute (10) DVT prophylaxis Assessment & Plan: - Lovenox Status: Acute (11) Low back pain Discharge Summary-Simple/Stand Consultations Discharge Physical Examination Allergies: Coded Allergies: amoxicillin (Verified Allergy, Unknown, 05/27/18) clavulanic acid (Verified Allergy, Unknown, 05/27/18) moxifloxacin (Verified Allergy, Unknown, 05/27/18) sulfamethoxazole (Verified Allergy, Unknown, 05/27/18) trimethoprim (Verified Allergy, Unknown, 05/27/18) Vitals & I&Os Vital Sign - Last 12Hours Date Time Temp Pulse Resp B/P (MAP) Pulse Ox O2 Delivery O2 Flow Rate FiO2 08/08/19 08:45 Room Air 08/08/19 08:24 37.0 81 20 184/83 (116) 96 Intake and Output 08/08/19 00:00 Intake Total 2540 ml Output Total 1800 ml Balance 740 ml General Appearance: Alert, Oriented X3, Cooperative, No Acute Distress Respiratory: Clear to Auscultation, Normal Air Movement Cardiovascular: Regular Rate, No Murmurs Abdominal: Normal Bowel Sounds, Soft, No Tenderness, No Masses Extremities: No Edema, No Tenderness/Swelling Neuro: Other (Strength 4/5 LE bilaterally, unstable gait) Hospital Course See final discharge diagnosis. Discussion & Recommendations 69 yo F that presented with sepsis 2/2 UTI. Started on IV antibiotics and transitioned to PO antibiotics. PT was ordered due to debility and patient had a near fall and it was recommended that patient get evaluated for IRF. Patient accepted. Due to high fall risk agree with d/c to IRF Discharge Condition at discharge stable Instructions to patient/family Please see electronic discharge instructions given to patient. Discharge Medications Reviewed and agree with Discharge Medication list on patient's Discharge Instruction sheet Clinical Quality Measures DVT/VTE Risk/Contraindication: Risk Factor Score Per Nursin RFS Level Per Nursing on Admit: 4+=Very High KURT TEMPLE MD Aug 08, 2019 12:04
[2019-08-08] MEDS ORDERED: CEFD300C3 PO (12:08)
[2019-08-08] MEDS ORDERED: FAMO20TA5 PO (12:08)
[2019-08-08] MEDS ORDERED: TRM50T PO (12:08)
--- NOTE | 2019-08-08 12:09 | Discharge Summary ---
Discharge [facility] Reconcile Patient Problems Problems Reviewed?: Yes Discharge Medications New, Converted or Re-Newed RX: Other New Medications: Cefdinir (Cefdinir) 300 Mg Capsule 300 MG PO BID, #6 CAP Famotidine (Famotidine) 20 Mg Tablet 20 MG PO DAILY, #30 TAB Tramadol HCl (Tramadol HCl) 50 Mg Tablet 50 MG PO Q8HR PRN for PAIN-SEVERE (8-10) for 30 Days, TAB Continued Medications: Cholecalciferol (Vitamin D3) (D3-50) 1,250 Mcg Capsule 1250 MCG PO DAILY, CAP Colestipol HCl (Colestipol HCl) 1 Gm Tablet 1 GM PO BID, TAB Cyclobenzaprine HCl (Cyclobenzaprine HCl) 10 Mg Tablet 10 MG PO TID PRN for MUSCLE SPASMS, TAB Diphenhydramine HCl (Benadryl) 25 Mg Capsule 25-50 MG PO BID PRN for SLEEP/ITCHING, CAP Duloxetine HCl (Duloxetine HCl) 30 Mg Capsule.dr 60 MG PO DAILY, CAP TAKES 2 (30MG) CAPS DAILY Fludrocortisone Acetate (Fludrocortisone Acetate) 0.1 Mg Tab 0.2 MG PO DAILY, TAB TAKES 2 (0.1MG) TABLETS Fluticasone Propionate (Flonase Allergy Relief) 9.9 Ml [place].susp 1 SPRAY NS DAILY PRN for ALLERGIES, EACH Gabapentin (Gabapentin) 100 Mg Capsule 100 MG PO TID, CAP Glipizide (Glipizide) 5 Mg Tablet 5 MG PO, TAB LAST FILLED 02-09-2019 #180/90 DAYS SUPPLY Lipase/Protease/Amylase (Creon 24,000 Units Capsule) 1 Each Capsule.dr 69027 UNITS PO QID, CAP LAST FILLED 04-17-2019 #200/50 DAY SUPPLY Magnesium Oxide (Magnesium) 500 Mg Capsule 500 MG PO DAILY, CAP Metformin HCl (Metformin HCl ER) 500 Mg Tab.er.24h 500 MG PO BID, TAB Midodrine HCl (Midodrine HCl) 5 Mg Tablet 5 MG PO TID, TAB Potassium Chloride (Potassium Chloride) 10 Meq Tab.er.prt 10 MEQ PO BID, TAB Promethazine HCl (Promethazine Tablet) 25 Mg Tablet 25 MG PO Q6H PRN for NAUSEA/VOMITING-2ND LINE, TAB Discontinued Medications: Clonazepam (Clonazepam) 0.5 Mg Tablet 0.5 MG PO BID PRN for ANXIETY, TAB Patient Instructions Goal/Follow Up Appt: Transfer to Rehab unit Activity & Diet Discharge Diet: ADA Diet Activity as Tolerated: Yes KURT TEMPLE MD Aug 08, 2019 12:09
--- NOTE | 2019-08-08 12:56 | Diagnostic Imaging Report ---
INDICATION: Fall with low back pain AP, oblique and lateral views of the lumbar spine are obtained with comparison made to study of 11/15/2018. There is continued left convexity curvature centered in the upper lumbar region. There has been L3-L4 discectomy with posterior fusion. Central and anterior compression deformity at L1 has remained stable. No new fracture or malalignment is identified. IMPRESSION: Stable postoperative findings with chronic compression deformity at L1. No acute abnormality or adverse change is identified. Dictated by: Dictated on workstation # [id number]
--- NOTE | 2019-08-08 12:58 | NUR ---
CM/SS: Visited with pt as to plan for discharge Plan: Undetermined at this time. Pt may return home or go to inpatient rehab. Summary: Pt reports feeling better today, however is requesting a xray of her back. Indicating that she may have hurt it the other day when walking with physical therapy. Pt reports being open to going to rehab and that she has been there before after her back surgery. Pt does not want to go to a care home. Pt does report that she has been on [facility] out of [place] working with physical therapy. This worker will follow up. [facility] is contacted [phone]. They had pt on services and will put on hold while pt is in the hospital. Addendum: 08/08/19 at 1454 by NANCY KELLEY Talk with pt after she had talked with Janis, from Inpatient Rehab. Reminded pt that rehab is he best plan for her or she will need to go to a assisted facility. She verbalizes she does not want to go to a care home. Pt reminded that she needs to be on board with plan for rehab and doctor can visit with her more about that tomorrow. She has been at rehab previously and just is not sure that she can do it. Pt is encouraged to do so. Inpatient Rehab can take patient on tomorrow. Dr. Riley is notified that Inpatient Rehab can take the pt on tomorrow.
--- NOTE | 2019-08-08 13:30 | Physical Therapy Daily Note ---
PT Daily Note-Current Subjective Pt declined PT. Pt states "I can't move. I would if I could but when I move my back hurts." Pt rates low back pain 8/10 if she tries to move. Transfers SCALE: Activities may be completed with or without assistive devices. 0-Coylasbmib-menbeyb completes the activity by him/herself with no assistance from a helper. 5-Set-up or Clean-up Assistance-helper sets up or cleans up; patient completes activity. [place] assists only prior to or following the activity. 4-Supervision or Touching Assistance-helper provides verbal cues and/or touching/steadying and/or contact guard assistance as patient completes activity. Assistance may be provided throughout the activity or intermittently. 3-Partial/Moderate Assistance-helper does LESS THAN HALF the effort. [place] lifts, holds or supports trunk or limbs, but provides less than half the effort. 2-Substantial/Maximal Assistance-helper does MORE THAN HALF the effort. [place] lifts or holds trunk or limbs and provides more than half the effort. 1-Yzcfcugzg-ovhwzq does ALL the effort. Patient does none of the effort to complete the activity. Or, the assistance of 2 or more helpers is required for the patient to complete the activity. If activity was not attempted, code reason: 7-Patient Refused. 9-Not Applicable-not attempted and the patient did not perform the activity before the current illness, exacerbation or injury. 10-Not Attempted due to Environmental Limitations-(lack of equipment, weather restraints, etc.). 88-Not Attempted due to Medical Conditions or Safety Concerns. Weight Bearing Full Weight Bearing Full Weight Bearing Assessment Current Status: Refused Treatment Pt resting, all needs met per pt. PT Short Term Goals Short Term Goals Time Frame: Aug 13, 2019 Roll Left & Right: 5 Sit to lyin Lying to sitting on side of be: 5 Sit to stand: 5 Chair/vct-zq-nzhps transfer: 5 Toilet transfer: 5 Car transfer: 5 Walk 10 feet: 4 Walk 50 feet with two turns: 4 Walk 150 feet: 4 Walking 10ft on uneven surface: 4 1 step (curb): 4 4 steps: 4 12 steps: 4 Picking up objects: 4 PT Residential Goals Residential Goals PT Residential Goals Time Frame: Aug 20, 2019 Roll Left & Right (QC): 6 Sit to Lying (QC): 6 Lying-Sitting on Side/Bed(QC): 6 Sit to Stand (QC): 6 Chair/Mlv-zf-Ccwxi Xfer(QC): 6 Toilet Transfer (QC): 6 Car Transfer (QC): 6 Does the Patient Walk: Yes Walk 10 feet (QC): 6 Walk 50ft with 2 Turns (QC): 6 Walk 150 ft (QC): 6 Walking 10ft on Uneven Surface: 6 1 Step (curb) (QC): 6 4 Steps (QC): 6 12 Steps (QC): 6 Picking up an Object (QC): 6 PT Plan Treatment/Plan Treatment Plan: Continue Plan of Care Treatment Plan: Bed Mobility, Functional Activity Bushra, Functional Strength, Gait, Safety, Therapeutic Exercise, Transfers Treatment Duration: Aug 20, 2019 Frequency: 6 times per week Estimated Hrs Per Day: .5 hour per day Time/GCodes Time In: 115 Time Out: 120 Total Billed Treatment Time: 5 Total Billed Treatment 1, no treatment rendered JONATHAN GUIDRY CPTA Aug 08, 2019 13:30
--- NOTE | 2019-08-08 13:37 | NUR ---
"RD ASSESSMENT PMHx: HTN; hypotension; GERD; DM PT INTERACTION: Pt was awake and pleasant during nutrition follow-up. Pt states her appetite has been improving since last assessment. Note avg PO intake 44% of meals recorded x2d, per chart review. Pt states no issues with n/v/c/d since last assessment. Note pt states she has not had a BM since last week. Note no BM has been recorded and pt not currently on bowel regimen per chart review. ABNORMAL NUTRITION-RELATED LAB VALUES LOW: K 3.0; Cl 93 HIGH: glu 212 Est. kcal needs: 3587-3143 kcal | 25-30 kcal/kg Est. Pro needs: 60-72 g Pro |1.0-1.2 g Pro/kg PES STATEMENT: Inadequate oral intake (NI-2.1) related to loss of appetite as evidenced by pt interview | avg PO intake 44% meals recorded x2d INTERVENTION: Continue with current diet order of CHO 60g/m 3snack diet. Continue with current supplementation order of Glucerna (vary) with meals TID, for increased kcal intake. Provides 220 kcal and 10 g Pro per serving. Pt may benefit from more aggressive bowel regimen, if constipation persists. Recommend updating current weight status. Pt has no wt change x6day, per chart review. Will continue to follow and reassess as pt needs, intake, and status change. MONITOR/EVALUATE: PO Intake; Plan of Care; Hydration Status; Weight Status; Lab Values Jimmy Boykin, MS, RD, LD"
--- NOTE | 2019-08-08 15:26 | NUR ---
Inpatient rehab evaluation Patient meets criteria for admission to ARU. Discussed ARU with patient, who reports increased back pain at this time. Lumbar x-ray has been ordered. Discussed with Aristides Claudio, geriatric social work professor. Anticipate admission to ARU on 08/09/2019. Thank you for this referral.
[2019-08-08 16:17] VITALS: BP 110/69
[2019-08-08] MEDS: ENOXAPARIN 40 MG/0.4 ML (LOVENOX) SYR SC SCH (18:16)
[2019-08-09] VITALS: BP 118/73
[2019-08-09] MEDS: inSUlin ASPART (NovoLOG) 1 UNIT/0.01 ML (CHARGE PER UNIT) SC SCH ×2 (06:07→11:34)
[2019-08-09] MEDS: KCL 10 MEQ TAB (MICRO K) PO SCH (06:24)
[2019-08-09] MEDS: SUCRALFATE 1 GM (CARAFATE) TAB PO SCH ×2 (06:24→11:23)
[2019-08-09 07:09] LABS: BASOPHILS % (AUTO) 0 % (0-10); EOSINOPHILS # (AUTO) 0.2 10^3/uL (0.0-0.3); EOSINOPHILS % (AUTO) 2 % (0-10); HEMATOCRIT 35 % (35-52); HEMOGLOBIN 11.4 G/DL (11.5-16.0); LYMPHOCYTES # (AUTO) 2.4 X 10^3 (1.0-4.0); LYMPHOCYTES % (AUTO) 25 % (12-44); MEAN CORPUSCULAR HEMOGLOBIN 31 PG (25-34); MEAN CORPUSCULAR HGB CONC 33 G/DL (32-36); MEAN CORPUSCULAR VOLUME 94 FL (80-99); MEAN PLATELET VOLUME 9.9 FL (7.4-10.4); MONOCYTES % (AUTO) 10 % (0-12); NEUTROPHILS # (AUTO) 6.1 X 10^3 (1.8-7.8); NEUTROPHILS % (AUTO) 62 % (42-75); PLATELET COUNT 340 10^3/uL (130-400); RED CELL DISTRIBUTION WIDTH 13.1 % (10.0-14.5); WHITE BLOOD COUNT 9.8 10^3/uL (4.3-11.0)
[2019-08-09 07:39] LABS: ALANINE AMINOTRANSFERASE 12 U/L (0-55); ALBUMIN 3.2 GM/DL (3.2-4.5); ALKALINE PHOSPHATASE 59 U/L (40-136); BILIRUBIN,TOTAL 0.4 MG/DL (0.1-1.0); BUN/CREATININE RATIO 12; CALCIUM 9.2 MG/DL (8.5-10.1); CARBON DIOXIDE 33 MMOL/L (21-32); CHLORIDE 92 MMOL/L (98-107); CREATININE SERUM 0.78 MG/DL (0.60-1.30); GFR ESTIMATED > 60; GLUCOSE 128 MG/DL (70-105); MAGNESIUM 1.8 MG/DL (1.6-2.4); POTASSIUM 3.2 MMOL/L (3.6-5.0); SODIUM 136 MMOL/L (135-145); TOTAL PROTEIN 6.5 GM/DL (6.4-8.2)
[2019-08-09 08:00] VITALS: BP 148/79
[2019-08-09] MEDS: FLUDROCORTISONE 0.1 MG (FLORINEF) TAB PO SCH (08:38)
[2019-08-09] MEDS: GABAPENTIN 100 MG (NEURONTIN) CAP PO SCH (08:38)
[2019-08-09] MEDS: COLESTIPOL 1 GM (COLESTID) TAB PO SCH (08:38)
[2019-08-09] MEDS: MAGNESIUM OXIDE (MAG-OX)400 MG TAB PO SCH (08:38)
[2019-08-09] MEDS: CYCLOBENZAPRINE 10 MG (FLEXERIL) TAB PO SCH (08:38)
[2019-08-09] MEDS: FAMOTIDINE 20 MG (PEPCID) TABLET PO SCH (08:39)
[2019-08-09] MEDS: CEFDINIR 300 MG (OMNICEF) CAP PO SCH (08:39)
[2019-08-09] MEDS: LIPASE/AMYLASE/PROTEASE (PANCRELIPASE) 5,000 UNITS CAP PO SCH (08:39)
[2019-08-09] MEDS: MIDODRINE 10 MG (PROAMATINE) TAB PO SCH (08:39)
--- NOTE | 2019-08-09 09:31 | Physical Therapy Daily Note ---
PT Daily Note-Current Subjective States that she is still getting lightheaded when she stands up. Transfers SCALE: Activities may be completed with or without assistive devices. 1-Uqaakrczso-hjfpirs completes the activity by him/herself with no assistance from a helper. 5-Set-up or Clean-up Assistance-helper sets up or cleans up; patient completes activity. [place] assists only prior to or following the activity. 4-Supervision or Touching Assistance-helper provides verbal cues and/or touching/steadying and/or contact guard assistance as patient completes activit y. Assistance may be provided throughout the activity or intermittently. 3-Partial/Moderate Assistance-helper does LESS THAN HALF the effort. [place] lifts, holds or supports trunk or limbs, but provides less than half the effort. 2-Substantial/Maximal Assistance-helper does MORE THAN HALF the effort. [place] lifts or holds trunk or limbs and provides more than half the effort. 2-Avykyboxa-hknfur does ALL the effort. Patient does none of the effort to complete the activity. Or, the assistance of 2 or more helpers is required for the patient to complete the activity. If activity was not attempted, code reason: 7-Patient Refused. 9-Not Applicable-not attempted and the patient did not perform the activity before the current illness, exacerbation or injury. 10-Not Attempted due to Environmental Limitations-(lack of equipment, weather restraints, etc.). 88-Not Attempted due to Medical Conditions or Safety Concerns. Roll Left & Right (QC): 4 Sit to Lying (QC): 4 Lying to Sitting/Side of Bed(Q: 4 Sit to Stand (QC): 4 Weight Bearing Full Weight Bearing Full Weight Bearing Gait Training Does the Patient Walk?: Yes Distance: 0 Patient unable to take steps today secondary to lightheadedness. Exercises Seated Therapy Exercises: LE Protocol Seated Reps: 20 Assessment Current Status: Good Progress Patient continues to have difficulty with standing. PT Short Term Goals Short Term Goals Time Frame: Aug 13, 2019 Roll Left & Right: 5 Sit to lyin Lying to sitting on side of be: 5 Sit to stand: 5 Chair/lqv-kl-qklvi transfer: 5 Toilet transfer: 5 Car transfer: 5 Walk 10 feet: 4 Walk 50 feet with two turns: 4 Walk 150 feet: 4 Walking 10ft on uneven surface: 4 1 step (curb): 4 4 steps: 4 12 steps: 4 Picking up objects: 4 PT Mcc Goals Mcc Goals PT Sales Branch Manager Goals Time Frame: Aug 20, 2019 Roll Left & Right (QC): 6 Sit to Lying (QC): 6 Lying-Sitting on Side/Bed(QC): 6 Sit to Stand (QC): 6 Chair/Tma-gt-Ugqos Xfer(QC): 6 Toilet Transfer (QC): 6 Car Transfer (QC): 6 Does the Patient Walk: Yes Walk 10 feet (QC): 6 Walk 50ft with 2 Turns (QC): 6 Walk 150 ft (QC): 6 Walking 10ft on Uneven Surface: 6 1 Step (curb) (QC): 6 4 Steps (QC): 6 12 Steps (QC): 6 Picking up an Object (QC): 6 PT Plan Treatment/Plan Treatment Plan: Continue Plan of Care Treatment Plan: Bed Mobility, Functional Activity Bush[place], Functional Strength, Gait, Safety, Therapeutic Exercise, Transfers Treatment Duration: Aug 20, 2019 Frequency: 6 times per week Estimated Hrs Per Day: .5 hour per day Time/GCodes Time In: 909 Time Out: 924 Total Billed Treatment Time: 15 Total Billed Treatment 1, EX x 15 SANFORD HOFFMAN PT Aug 09, 2019 09:31
--- NOTE | 2019-08-09 12:15 | NUR ---
Report called to Seth BLACK, patient to ARU.
[2019-08-10] MEDS ORDERED: DROX200C PO (14:00)
== END 2019-08-09 12:40 | DRG 872 ==
LOC: EDUNIT# 14:22 → ER FS 14:23 → 4TH 15:55
PROVIDERS: ADMIT Internal Medicine; ATTEND Internal Medicine
DX: A41.9 Sepsis, unspecified organism (principal); N39.0 Urinary tract infection, site not specified; N12 Tubulo-interstitial nephritis, not specified as acute or chronic; N31.9 Neuromuscular dysfunction of bladder, unspecified; R11.2 Nausea with vomiting, unspecified; E87.6 Hypokalemia; I95.1 Orthostatic hypotension; E11.40 Type 2 diabetes mellitus with diabetic neuropathy, unspecified; R26.81 Unsteadiness on feet; M48.062 Spinal stenosis, lumbar region with neurogenic claudication; R33.8 Other retention of urine; I10 Essential (primary) hypertension; K21.9 Gastro-esophageal reflux disease without esophagitis; M19.91 Primary osteoarthritis, unspecified site; Z79.84 Long term (current) use of oral hypoglycemic drugs
CPT/HCPCS: 36415; 51701; 51702; 71045; 72100; 74177; 80048; 80053; 81000; 82150; 82533; 82962; 83605; 83690; 83735; 84484; 85007; 85025; 85027; 85610; 85730; 86141; 87040; 87077; 87088; 87186; 93005; 96372; 96374; 96375; 96376

== ENCOUNTER 2019-08-09 13:00 | Inpatient (IN) | payer MEDICARE, OTHER ==
[~2019-08-09] VITALS: Ht 160 cm; Wt 65.6 kg
[~2019-08-09 13:00] MED LIST changes: +ACETAMINOPHEN 500 MG TAB (TYLENOL) PO PRN; +ALPRAZolam 0.25 MG (XANAX) TAB PO PRN; +CEFD300C3 PO; +CHOL50005 PO; +CLON0.5T4 PO; +DOCUSATE SODIUM 100 MG (COLACE) CAP PO PRN; +DOCUSATE SODIUM 100 MG (COLACE) CAP PO SCH; +DULO30CA49 PO; +FAMO20TA5 PO; +FLEET ENEMA ADULT 1 EA BTL PR PRN; +GLIP5TAB13 PO; +LACTULOSE SYRUP 10GM/15ML (ENULOSE) 30ML UDC PO PRN; +LOPERAMIDE 2 MG (IMODIUM) TABLET PO PRN; +MELATONIN 3 MG TABLET PO PRN; +diphenhydrAMINE 25 MG TAB (BENADRYL) PO PRN; +guaiFENesin/CODEINE (ROBITUSSIN AC) 10ML UDC PO PRN
--- NOTE | 2019-08-09 13:00 | NUR ---
Jordana Garcia, admitted to room 229-1, with an admitting diagnosis of , on 08/09/19 from via MED/SURG, accompanied by Staff.JORDANA GARCIA introduced to surroundings, call light, bed controls, phone, TV, temperature control, lights, meal times, smoking policy, visitor policy, side rail policy, bathrooms and showers. Patient Rights given to patient in the handbook.JORDANA GARCIA verbalizes understanding that [facility] is not responsible for the loss or damage to any personal effects or valuables that are kept in the patients posession during their hospitalization. The following Patient Care Plans were discussed with the patient: Discharge Planning, falls,debility, and impaired mobility. JORDANA GARCIA verbalizes understanding of Interdisciplinary Patient Education. Patient and/or family were informed about the Rapid Response Team and its purpose. Patient received Patient Rights Booklet, which includes Privacy Act Statement and Data Collection Information Summary.
[2019-08-09] MEDS ORDERED: PROMETHAZINE 25 MG (PHENERGAN) TAB PO PRN (14:00)
[2019-08-09] MEDS ORDERED: clonazePAM 0.5 MG (KlonoPIN) TAB PO PRN (14:00)
--- NOTE | 2019-08-09 14:01 | PM&R Post Admission Assessment ---
PM&R HP Date of Visit: Aug 09, 2019 Time of Visit: 13:30 History of Present Illness CC: Debility following UTI and severe orthostasis flare of POTS HPI: This is a 69yoWF clinic patient of Dr Wynne known to me from IRF hospital stay 1 years ago in June following a major spine surgery with 7 months of bedri dden debilitated state prior to the surgery who was DC home successfully who has not had any major illnesses or hospital stays since I last saw her who also sees Urology and Cardiology at and [facility] who presents to IRF following a 7 days course of inpatient stay on 4th floor due to UTI and sepsis and flare of POTS causing significant falls risks and unsteady balance status. BM not reported for several days so meds will be given. Cefdinir will be taken to complete UTI treatment. Patient denies pain but requesting her Clonazepam carroll anxiety which she has taken for august years. PLOF was at home with her . Past Hralqtm-Mrmbtk-Aurjmc Hx Past Med/Social Hx: Reviewed Nursing Past Med/Soc Hx, Reviewed and Corrections made Patient Social History Marrital Status: Employed/Student: retired Alcohol Use: Denies Use Smoking Status: Never a Smoker 2nd Hand Smoke Exposure: No Recent Hopitalizations: Yes Immunizations Up To Date Date of Pneumonia Vaccine: Aug 09, 2016 Date of Influenza Vaccine: May 27, 2018 Seasonal Allergies Seasonal Allergies: No Past Medical History Surgeries: Appendectomy, Gallbladder, Orthopedic Currently Using CPAP: No Currently Using BIPAP: No Cardiac: Hypertension, Hypotension, Palpitations Neurological: Neuropathy, Spinal Cord Injury Genitourinary: Neurogenic Bladder Gastrointestinal: Gastroesophageal Reflux Musculoskeletal: Arthritis, Chronic Back Pain Endocrine: Diabetes, Non-Insulin dep HEENT: Cataract Loss of Vision: Denies Hearing Impairment: Denies History of Blood Disorders: No Adverse Reaction to Blood Méndez: No Family History Completed stroke 19 MOTHER (cva) G8 SISTER (cva) Diabetes mellitus 19 FATHER (neurpathy) Headache disorder 19 MOTHER (migraines) G8 BROTHER (migraines) G8 SISTER (migraines) Neoplasm 19 MOTHER (cancer) Diabetes PM&R Allergy/Meds/Data Review Allergies Coded Allergies: amoxicillin (Verified Allergy, Unknown, 05/27/18) clavulanic acid (Verified Allergy, Unknown, 05/27/18) moxifloxacin (Verified Allergy, Unknown, 05/27/18) sulfamethoxazole (Verified Allergy, Unknown, 05/27/18) trimethoprim (Verified Allergy, Unknown, 05/27/18) Home Medications Scheduled Cefdinir (Cefdinir), 300 MG PO BID Cholecalciferol (Vitamin D3) (D3-50), 1,250 MCG PO DAILY, (Reported) Colestipol HCl (Colestipol HCl), 1 GM PO BID, (Reported) Duloxetine HCl (Duloxetine HCl), 60 MG PO DAILY, (Reported) Famotidine (Famotidine), 20 MG PO DAILY Fludrocortisone Acetate (Fludrocortisone Acetate), 0.2 MG PO DAILY, (Reported) Gabapentin (Gabapentin), 100 MG PO TID, (Reported) Lipase/Protease/Amylase (Creon Dr 24,000 Units Capsule), 24,000 UNITS PO QID, (Reported) Magnesium Oxide (Magnesium), 500 MG PO DAILY, (Reported) Metformin HCl (Metformin HCl ER), 500 MG PO BID, (Reported) Midodrine HCl (Midodrine HCl), 5 MG PO TID, (Reported) Potassium Chloride (Potassium Chloride), 10 MEQ PO BID, (Reported) Scheduled PRN Cyclobenzaprine HCl (Cyclobenzaprine HCl), 10 MG PO TID PRN for MUSCLE SPASMS, (Reported) Diphenhydramine HCl (Benadryl), 25-50 MG PO BID PRN for SLEEP/ITCHING, (Reported) Fluticasone Propionate (Flonase Allergy Relief), 1 SPRAY NS DAILY PRN for ALLERGIES, (Reported) Promethazine HCl (Promethazine Tablet), 25 MG PO Q6H PRN for NAUSEA/VOMITING-2ND LINE, (Reported) Tramadol HCl (Tramadol HCl), 50 MG PO Q8HR PRN for PAIN-SEVERE (8-10) Miscellaneous Medications Glipizide (Glipizide), 5 MG PO, (Reported) Discontinued Medications Cholecalciferol (Vitamin D3) (Vitamin D3), 2,000 UNIT PO DAILY, (Reported) Discontinued Reason: Prescription changed Clonazepam (Clonazepam), 0.5 MG PO BID PRN for ANXIETY, (Reported) Cyanocobalamin (Cyanocobalamin Injection), 1,000 MG INJ MONTHLY, (Reported) Discontinued Reason: No Longer Taking Cyclobenzaprine HCl (Cyclobenzaprine HCl), 5 MG PO TID Discontinued Reason: Duplicate Order Droxidopa (Northera), 200 MG PO TID, (Reported) Discontinued Reason: No Longer Taking Estradiol (Estrace Cream), VG MoWeFr, (Reported) Discontinued Reason: No Longer Taking Glipizide (Glipizide ER), 5 MG PO DAILY, (Reported) Discontinued Reason: Prescription changed Hydrocodone Bit/Acetaminophen (Lortab 5 Mg Tablet), 1 TAB PO Q4H PRN for PAIN- SEVERE Discontinued Reason: No Longer Taking Ondansetron (Ondansetron Odt), 4 MG PO Q6H PRN for NAUSEA/VOMITING Discontinued Reason: No Longer Taking Ranitidine HCl (Ranitidine HCl), 150 MG PO DAILY, (Reported) Discontinued Reason: No Longer Taking Tramadol HCl (Tramadol HCl), 50 MG PO Q6H PRN for PAIN-MODERATE Discontinued Reason: No Longer Taking Current Medications Current Medications Reviewed Review of Systems Constitutional: see HPI, dizziness, malaise, weakness EENTM: no symptoms reported Respiratory: no symptoms reported Cardiovascular: no symptoms reported Gastrointestinal: constipation Genitourinary: decreased output Musculoskeletal: back pain, joint pain Skin: no symptoms reported Psychiatric/Neurological: Anxiety, Depressed All Other Systems Reviewed Negative Unless Noted: Yes Physical Exam Physical Exam Vital Signs Capillary Refill : Height, Weight, BMI Height: 5'2.00" Weight: 144lbs. 0.9oz. [id number]; 23.39 BMI Method: General Appearance: No Apparent Distress, WD/WN, Chronically ill, Thin, Other (frail) Eyes: Bilateral Eye Normal Inspection, Bilateral Eye PERRL HEENT: PERRL/EOMI, Normal ENT Inspection, Pharynx Normal Neck: Full Range of Motion, Normal Inspection, Non Tender, Supple, Carotid Bruit Respiratory: Chest Non Tender, Lungs Clear, Normal Breath Sounds, No Accessory Muscle Use, No Respiratory Distress Cardiovascular: Regular Rate, Rhythm, No Edema, No Gallop, No JVD, No Murmur, Normal Peripheral Pulses Gastrointestinal: Normal Bowel Sounds, No Organomegaly, No Pulsatile Mass, Non Tender, Soft Back: Normal Inspection, No CVA Tenderness, No Vertebral Tenderness Extremity: Normal Capillary Refill, Normal Inspection, Normal Range of Motion, Non Tender, No Calf Tenderness, No Pedal Edema Neurologic/Psychiatric: Alert, Oriented x3, No Motor/Sensory Deficits (legs 4/5 strength), Normal Mood/Affect Skin: Normal Color, Warm/Dry Lymphatic: No Adenopathy PM&R Medical Assessment & Plan REHAB/MEDICAL ASSESSMENT AND PLAN: REHAB IMPAIRMENT GROUP: Debility with POTS flare ETIOLOGIC DIAGNOSIS: Debility with POTS flare The comorbidities that impact the patients function and/or functional outcome by: chronic debility from spine surgery 1 yr ago, frail status, recurrent UTI, neurogenic bladder REHAB PLAN: The patient is being admitted to our comprehensive inpatient rehabilitation facility and can tolerate the intensity of service consisting of at least: 180 minutes of therapy a day, 5 out of 7 days a week Rehab treatment will consist of: PT OT will focus on regaining ADL's and strengthening while managing orthostasis and POTS condition The patient/family has a good understanding of our discharge process and will benefit from an interdisciplinary inpatient rehabilitation program. The patient has potential to make improvement and is in need of at least two of the following multidisciplinary therapies including but not limited to physical, occupational, speech, and prosthetics and orthotics. Additionally the patient will need services from respiratory, nutritional services, wound care, psychology, etc. (Customize this to each patient). Given the patients complex condition and risk of further medical complications, rehabilitation services cannot be safely or effectively provided at a lower level of care such as a chcf facility. BARRIERS TO DISCHARGE: Frail status ESTIMATED LOS: 7 days DISPOSITION: Home RELEVANT CHANGES SINCE PREADMISSION SCREENING: I have compared the patients medical and functional status at the time of the preadmission screening and there are: no changes PROGNOSIS: Good REHABILITATION GOALS: 1. PT OT will focus on regaining ADL's and strengthening while managing orthostasis and POTS condition All the above goals were reviewed with the patient and he/she is in agreement. By signing this document, I acknowledge that I have personally performed a full physical examination on this patient within 24 hours of admission to this inpatient rehabilitation facility and have determined the patient to be able to tolerate the above course of treatment at an intensive level for a reasonable period of time. I will be completing a detailed individualized Plan of Care for this patient by day #4 of the patients stay based upon the Preadmission Screen, the Post-Admission Evaluation, and the therapy evaluations. Admission Dx/Comorbidities: (1) Physical debility Status: Acute ICD Codes: R53.81 - Other malaise (2) Unsteady gait Status: Acute ICD Codes: R26.81 - Unsteadiness on feet (3) POTS (postural orthostatic tachycardia syndrome) Status: Chronic ICD Codes: R00.0 - Tachycardia, unspecified; I95.1 - Orthostatic hypotension (4) Acute UTI Status: Acute ICD Codes: N39.0 - Urinary tract infection, site not specified (5) History of UTI Status: Chronic ICD Codes: Z87.440 - Personal history of urinary (tract) infections (6) Weakness Status: Chronic ICD Codes: R53.1 - Weakness (7) Hypokalemia Status: Acute ICD Codes: E87.6 - Hypokalemia (8) Diabetes mellitus Status: Chronic ICD Codes: E11.9 - Type 2 diabetes mellitus without complications (9) Neurogenic bladder Status: Chronic ICD Codes: N31.9 - Neuromuscular dysfunction of bladder, unspecified (10) DVT prophylaxis Status: Acute ICD Codes: Z29.9 - Encounter for prophylactic measures, unspecified (11) Headache Status: Resolved ICD Codes: R51 - Headache (12) Low back pain ICD Codes: M54.5 - Low back pain (13) GERD (gastroesophageal reflux disease) Status: Chronic ICD Codes: K21.9 - Gastro-esophageal reflux disease without esophagitis (14) Neuropathy ICD Codes: G62.9 - Polyneuropathy, unspecified Assessment/Plan Assessment and Plan Assess & Plan/Chief Complaint Assessment: (1A) Debility with major fall risk requiring IRF (1) s/p Sepsis (2) Acute UTI completing PO abx now (3) Abdominal pain (4) Hypokalemia (5) Neurogenic bladder-self caths maintained Urology at [facility] regular basis (6) Headache (7) Diabetes mellitus (8) Unsteady gait with POTS (Postoral orthostasis tachycardia syndrome) (9) Physical debility (10) DVT prophylaxis (11) Low back pain chronic w/h/o lumbar spine surgery (12) DM (13) Vit B12 def Plan: Maintain on home meds Permissive hypertension due to severity of her orthostasis when standing up Pain control Bowel regimen with Miralax Intensive therapies Fall risk Straight in/out caths prn Cefdinir to complete 4 more days MALIKA VÁZQUEZ DO Aug 09, 2019 14:01
[2019-08-09] MEDS: DOCUSATE SODIUM 100 MG (COLACE) CAP PO SCH ×2 (15:15→21:31)
[2019-08-09] MEDS: LIPASE/AMYLASE/PROTEASE (PANCRELIPASE) 5,000 UNITS CAP PO SCH ×2 (16:32→21:32)
[2019-08-09] MEDS: inSUlin ASPART (NovoLOG) 1 UNIT/0.01 ML (CHARGE PER UNIT) SC SCH ×2 (16:33→21:33)
[2019-08-09] MEDS: metFORMIN 500 MG (GLUCOPHAGE) TAB PO SCH (16:33)
[2019-08-09 17:07] VITALS: BP 171/72
[2019-08-09] MEDS: MAGNESIUM OXIDE (MAG-OX)400 MG TAB PO SCH (18:04)
[2019-08-09] MEDS: KCL 10 MEQ TAB (MICRO K) PO SCH (18:04)
[2019-08-09] MEDS: ENOXAPARIN 40 MG/0.4 ML (LOVENOX) SYR SC SCH (18:05)
[2019-08-09] MEDS: polyethylene glycoL POWDER 17 GM (MIRALAX) PACK PO SCH (21:31)
[2019-08-09] MEDS: MIDODRINE 10 MG (PROAMATINE) TAB PO SCH (21:32)
[2019-08-09] MEDS: CEFDINIR 300 MG (OMNICEF) CAP PO SCH (21:32)
[2019-08-09] MEDS: GABAPENTIN 100 MG (NEURONTIN) CAP PO SCH (21:32)
[2019-08-09] MEDS: SENNA W/DOCUSATE (SENOKOT S) TABLET PO SCH (21:32)
[2019-08-09] MEDS: FAMOTIDINE 20 MG (PEPCID) TABLET PO SCH (21:34)
[2019-08-09] MEDS: COLESTIPOL 1 GM (COLESTID) TAB PO SCH (21:41)
--- NOTE | 2019-08-09 22:00 | NUR ---
Straight Catheterization using sterile procedure, Cecilia BLACK in the room assisting with procedure, 900 ml of clear yellow urine obtained, pt tolerated procedure well.
[2019-08-10 04:58] LABS: BASOPHILS % (AUTO) 0 % (0-10); EOSINOPHILS # (AUTO) 0.3 10^3/uL (0.0-0.3); EOSINOPHILS % (AUTO) 3 % (0-10); HEMATOCRIT 33 % (35-52); HEMOGLOBIN 10.9 G/DL (11.5-16.0); LYMPHOCYTES # (AUTO) 2.5 X 10^3 (1.0-4.0); LYMPHOCYTES % (AUTO) 27 % (12-44); MEAN CORPUSCULAR HEMOGLOBIN 31 PG (25-34); MEAN CORPUSCULAR HGB CONC 33 G/DL (32-36); MEAN CORPUSCULAR VOLUME 94 FL (80-99); MEAN PLATELET VOLUME 8.9 FL (7.4-10.4); MONOCYTES % (AUTO) 11 % (0-12); NEUTROPHILS # (AUTO) 5.5 X 10^3 (1.8-7.8); NEUTROPHILS % (AUTO) 59 % (42-75); PLATELET COUNT 342 10^3/uL (130-400); RED CELL DISTRIBUTION WIDTH 13.1 % (10.0-14.5); WHITE BLOOD COUNT 9.3 10^3/uL (4.3-11.0)
[2019-08-10 05:12] LABS: ALBUMIN 3.1 GM/DL (3.2-4.5); CHLORIDE 93 MMOL/L (98-107); POTASSIUM 3.6 MMOL/L (3.6-5.0); SODIUM 138 MMOL/L (135-145)
[2019-08-10 05:13] LABS: CALCIUM 9.1 MG/DL (8.5-10.1)
[2019-08-10 05:14] LABS: GLUCOSE 157 MG/DL (70-105)
[2019-08-10 05:15] LABS: TOTAL PROTEIN 6.3 GM/DL (6.4-8.2)
[2019-08-10 05:16] LABS: BILIRUBIN,TOTAL 0.3 MG/DL (0.1-1.0); CARBON DIOXIDE 36 MMOL/L (21-32)
[2019-08-10 05:18] LABS: ALKALINE PHOSPHATASE 65 U/L (40-136); CREATININE SERUM 0.83 MG/DL (0.60-1.30); GFR ESTIMATED > 60
[2019-08-10 05:19] LABS: BUN/CREATININE RATIO 13
[2019-08-10 05:21] LABS: ALANINE AMINOTRANSFERASE 11 U/L (0-55)
[2019-08-10] MEDS: inSUlin ASPART (NovoLOG) 1 UNIT/0.01 ML (CHARGE PER UNIT) SC SCH ×4 (05:25→21:10)
[2019-08-10 06:00] VITALS: BP 128/65
[2019-08-10] MEDS: LIPASE/AMYLASE/PROTEASE (PANCRELIPASE) 5,000 UNITS CAP PO SCH ×4 (06:12→20:45)
[2019-08-10] MEDS: metFORMIN 500 MG (GLUCOPHAGE) TAB PO SCH ×2 (06:12→17:14)
[2019-08-10] MEDS: glipiZIDE 5 MG (GLUCOTROL) TAB PO SCH (06:12)
[2019-08-10] MEDS: CEFDINIR 300 MG (OMNICEF) CAP PO SCH (09:52)
[2019-08-10] MEDS: GABAPENTIN 100 MG (NEURONTIN) CAP PO SCH ×3 (09:52→20:45)
[2019-08-10] MEDS: MIDODRINE 10 MG (PROAMATINE) TAB PO SCH ×3 (09:53→20:45)
[2019-08-10] MEDS: DULoxetine 30 MG (CYMBALTA) CAP PO SCH (09:53)
[2019-08-10] MEDS: FLUDROCORTISONE 0.1 MG (FLORINEF) TAB PO SCH (09:54)
[2019-08-10] MEDS: DOCUSATE SODIUM 100 MG (COLACE) CAP PO SCH ×2 (09:54→20:45)
[2019-08-10] MEDS: FAMOTIDINE 20 MG (PEPCID) TABLET PO SCH ×2 (09:54→20:45)
[2019-08-10] MEDS: MAGNESIUM OXIDE (MAG-OX)400 MG TAB PO SCH ×2 (09:54→17:13)
[2019-08-10] MEDS: KCL 10 MEQ TAB (MICRO K) PO SCH ×3 (09:54→17:14)
[2019-08-10] MEDS: COLESTIPOL 1 GM (COLESTID) TAB PO SCH ×2 (10:00→20:46)
[2019-08-10] MEDS: SENNA W/DOCUSATE (SENOKOT S) TABLET PO SCH ×2 (10:04→20:46)
[2019-08-10] MEDS: polyethylene glycoL POWDER 17 GM (MIRALAX) PACK PO SCH ×3 (10:04→20:46)
[2019-08-10] MEDS: FLUTICASONE NASAL SPRAY (FLONASE) 16 GM BTL NS SCH ×2 (10:04→10:18)
[2019-08-10] MEDS: CYCLOBENZAPRINE 10 MG (FLEXERIL) TAB PO PRN (10:12)
[2019-08-10 10:36] VITALS: BP 144/69
--- NOTE | 2019-08-10 11:37 | PM&R Progress Note ---
Subjective HPI/CC On Admission Date Seen by Provider: Aug 10, 2019 Time Seen by Provider: 12:10 Subjective/Events-last exam Patient doing well today Slept pretty well last night Home med brought in by relative and we will restart that for orthostasis In-out catheter required 1000pm last night and obtained 1000cc Bladder scan only 230 this am so awaiting when in/out cath needed per patient sensation of full bladder No pain reported Checked meds and labs Conferred with sailing master of Systems General: Fatigue Neurological: Weakness, Numbness, Incoordination Objective Exam Vital Signs Vital Signs Date Time Temp Pulse Resp B/P (MAP) Pulse Ox O2 Delivery O2 Flow Rate FiO2 08/10/19 11:25 36.8 08/10/19 10:36 144/69 (94) 08/10/19 06:00 71 18 93 Room Air Capillary Refill : Less Than 3 Seconds General Appearance: No Apparent Distress, WD/WN, Chronically ill, Thin, Other (frail) HEENT: PERRL/EOMI, Normal ENT Inspection, Pharynx Normal Neck: Full Range of Motion, Normal Inspection, Non Tender, Supple, Carotid Bruit Respiratory: Chest Non Tender, Lungs Clear, Normal Breath Sounds, No Accessory Muscle Use, No Respiratory Distress Cardiovascular: Regular Rate, Rhythm, No Edema, No Gallop, No JVD, No Murmur, Normal Peripheral Pulses Gastrointestinal: Normal Bowel Sounds, No Organomegaly, No Pulsatile Mass, Non Tender, Soft Back: Normal Inspection, No CVA Tenderness, No Vertebral Tenderness Extremity: Normal Capillary Refill, Normal Inspection, Normal Range of Motion, Non Tender, No Calf Tenderness, No Pedal Edema Neurologic/Psychiatric: Alert, Oriented x3, No Motor/Sensory Deficits (legs 4/5 strength), Normal Mood/Affect Skin: Normal Color, Warm/Dry Lymphatic: No Adenopathy Results/Procedures Lab Laboratory Tests 08/10/19 04:50 Patient resulted labs reviewed. FIM Transfers Therapy Code Descriptions/Definitions Functional [place] Measure: 0=Not Assessed/NA 4=Minimal Assistance 1=Total Assistance 5=Supervision or Setup 2=Maximal Assistance 6=Modified [place] 3=Moderate Assistance 7=Complete IndependenceSCALE: Activities may be completed with or without assistive devices. 2-Coautdjmsj-bvzjbni completes the activity by him/herself with no assistance from a helper. 5-Set-up or Clean-up Assistance-helper sets up or cleans up; patient completes activity. [place] assists only prior to or following the activity. 4-Supervision or Touching Assistance-helper provides verbal cues and/or touching/steadying and/or contact guard assistance as patient completes activity. Assistance may be provided throughout the activity or intermittently. 3-Partial/Moderate Assistance-helper does LESS THAN HALF the effort. [place] lifts, holds or supports trunk or limbs, but provides less than half the effort. 2-Substantial/Maximal Assistance-helper does MORE THAN HALF the effort. [place] lifts or holds trunk or limbs and provides more than half the effort. 8-Aiwjmpvtf-rjswjq does ALL the effort. Patient does none of the effort to complete the activity. Or, the assistance of 2 or more helpers is required for the patient to complete the activity. If activity was not attempted, code reason: 7-Patient Refused. 9-Not Applicable-not attempted and the patient did not perform the activity before the current illness, exacerbation or injury. 10-Not Attempted due to Environmental Limitations-(lack of equipment, weather restraints, etc.). 88-Not Attempted due to Medical Conditions or Safety Concerns. Assessment/Plan Assessment and Plan Assess & Plan/Chief Complaint Assessment: (1A) Debility with major fall risk requiring IRF (1) s/p Sepsis (2) Acute UTI completing PO abx now (3) Abdominal pain (4) Hypokalemia (5) Neurogenic bladder-self caths maintained Urology at [facility] regular basis (6) Headache (7) Diabetes mellitus (8) Unsteady gait with POTS (Postoral orthostasis tachycardia syndrome) (9) Physical debility (10) DVT prophylaxis (11) Low back pain chronic w/h/o lumbar spine surgery (12) DM (13) Vit B12 def Plan: Maintain on home meds Permissive hypertension due to severity of her orthostasis when standing up Pain control Bowel regimen with Miralax Intensive therapies Fall risk Straight in/out caths prn Cefdinir to complete 3 more days (1) Physical debility Status: Acute (2) Unsteady gait Status: Acute (3) POTS (postural orthostatic tachycardia syndrome) Status: Chronic (4) Acute UTI Status: Acute (5) History of UTI Status: Chronic (6) Weakness Status: Chronic (7) Hypokalemia Status: Acute (8) Diabetes mellitus Status: Chronic (9) Neurogenic bladder Status: Chronic (10) DVT prophylaxis Status: Acute (11) Headache Status: Resolved Resolution Date/Time: 08/07/19 @ 12:08 (12) Low back pain (13) GERD (gastroesophageal reflux disease) Status: Chronic (14) Neuropathy MALIKA VÁZQUEZ DO Aug 10, 2019 11:37
--- NOTE | 2019-08-10 12:34 | NUR ---
Pts sister sent up Fritos chips, & a bag of Snickers candy bars for pt. Educated pt regarding Diabetes, FSBS
[2019-08-10] MEDS ORDERED: DROX200C PO (14:00)
--- NOTE | 2019-08-10 14:05 | NUR ---
Pt had her sister bring up 2 home meds, Creon, which pt is already taking now, & Northera 200 mg. take 1 capsule TID, take last capsule at least 3 hours before bedtime. Prescribed by Dr. Irene Adkins, at [facility]. Notified Dr. Garg, & inquired if she wanted pt to resume ?
[2019-08-10] MEDS ORDERED: RELABEL FOR HOME USE MC SCH (14:15)
--- NOTE | 2019-08-10 14:26 | NUR ---
Tubed pt's bottle of Northera to pharmacy, after calling & notifying them.
--- NOTE | 2019-08-10 14:42 | NUR ---
Rec'd pt's bottle of Northera back from Pharmacy. 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
[2019-08-10 15:41] VITALS: BP 163/82
[2019-08-10] MEDS: NORTHERA PO SCH (17:16)
[2019-08-10 17:20] VITALS: BP 185/82
[2019-08-10 17:53] VITALS: BP 145/78
[2019-08-10] MEDS: ENOXAPARIN 40 MG/0.4 ML (LOVENOX) SYR SC SCH (17:53)
--- NOTE | 2019-08-10 18:39 | NUR ---
Pt requested to take Benadryl this afternoon, for what she refers to as chronic itching of her face, & neck. Benadryl was given at 1412, see EMAR. No visible signs of rash or redness noted. Pt reported that the Benadryl did help relieve the itching. Pt states that she has to take it at home also. States, "the Dr's don't know what causes it."
--- NOTE | 2019-08-10 20:00 | NUR ---
Straight Catheterization using sterile procedure, Myrna BAUER in the room assisting with procedure, 1000 ml of clear yellow urine obtained, pt tolerated procedure well.
[2019-08-11 06:00] VITALS: BP 101/66
[2019-08-11] MEDS: inSUlin ASPART (NovoLOG) 1 UNIT/0.01 ML (CHARGE PER UNIT) SC SCH ×4 (06:19→20:51)
--- NOTE | 2019-08-11 06:30 | NUR ---
This morning the patient is somewhat drowsy. She able to answer questions and follow commands appropriately. O2sat 94% on RA, 16 RPM. The patient agrees to not take Tramadol this am. Will notify Dr. Garg and daytime RN.
[2019-08-11] MEDS: LIPASE/AMYLASE/PROTEASE (PANCRELIPASE) 5,000 UNITS CAP PO SCH ×4 (06:36→21:27)
[2019-08-11] MEDS: glipiZIDE 5 MG (GLUCOTROL) TAB PO SCH (06:36)
[2019-08-11] MEDS: metFORMIN 500 MG (GLUCOPHAGE) TAB PO SCH ×2 (06:36→17:00)
[2019-08-11 09:15] VITALS: BP 124/79
--- NOTE | 2019-08-11 09:27 | Occupational Therapy Eval ---
OT Evaluation-General/PLF Medical Diagnosis Admission Date Aug 09, 2019 at 13:00 Medical Diagnosis: Debility following UTI and orthostasis flare of POTS Onset Date: Aug 11, 2019 Therapy Diagnosis Therapy Diagnosis: Decreased ADL status Height/Weight Height (Feet): 5 Height (Inches): 2.00 Weight (Pounds): 144 Weight (Ounces): 0.9 Precautions Precautions/Isolations: Fall Prevention, Standard Precautions Referral Physician: Elham Garg DO Referral Reason: Activity Tolerance, Self Care, Evaluation/Treatment, Strengthening/ROM Medical History Pertinent Medical History: DM Additional Medical History HTN, hypotention, palpitations, SCI, arthritis, NID DM Current History UTI and orthostasis flare of POTS (Postural orthostatic tachycardia syndrome) Reviewed History: Yes Social History Home: Single Level Current Living Status: Spouse Entry Into Home: Ramp Steps Inside Home: 0 ADL-Prior Level of Function SCALE: Activities may be completed with or without assistive devices. 0-Rplpedvwcb-momdmsu completes the activity by him/herself with no assistance from a helper. 5-Set-up or Clean-up Assistance-helper sets up or cleans up; patient completes activity. [place] assists only prior to or following the activity. 4-Supervision or Touching Assistance-helper provides verbal cues and/or touching/steadying and/or contact guard assistance as patient completes activity . Assistance may be provided throughout the activity or intermittently. 3-Partial/Moderate Assistance-helper does LESS THAN HALF the effort. [place] lifts, holds or supports trunk or limbs, but provides less than half the effort. 2-Substantial/Maximal Assistance-helper does MORE THAN HALF the effort. [place] lifts or holds trunk or limbs and provides more than half the effort. 4-Sikyhqino-lsphmo does ALL the effort. Patient does none of the effort to complete the activity. Or, the assistance of 2 or more helpers is required for the patient to complete the activity. If activity was not attempted, code reason: 7-Patient Refused. 9-Not Applicable-not attempted and the patient did not perform the activity before the current illness, exacerbation or injury. 10-Not Attempted due to Environmental Limitations-(lack of equipment, weather restraints, etc.). 88-Not Attempted due to Medical Conditions or Safety Concerns. 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 Pt reclined in bed/ asleep. Pt wakes upon verbal entry, pt states a "bit" of pain in posterior R thigh due to "sciatic nerve," and states, "This morning is not going to be pretty," as pt states she is very lightheaded this am. Pt agreeable to OT eval/ treat. 1509-4456 (30): Pt seen in bed post-urination (straight cath by nursing). Pt seen with both PT/ OT this am due to medical condition/ safety of pt, decreased endurance and strength, and dependency of transfers due to POTS. OT addressed positioning, ADLs, and fine motor/ UE movement as PT addressed large motor movement, balance, standing. 4778-1516 (10): Pt seen in bed, sleeping. Pt has lunch in front of her, easily wakes, stating pain in back and was given pain pill. Pt states has not been able to stay awake. Pt agrees for ther ex in bed. Mental Status/Objective Patient Orientation: Person, Place, Time, Situation, Normal For Age Current Glasses/Contacts: Yes Hearing Aids: No Dentures/Partials: Yes Hand Dominance: Right Upper Extremity ROM WFL BUE Upper Extremity Coordination WFL BUE Upper Extremity Sensation WFL BUE Upper Extremity Strength WFL BUE (4-/5) Edema: none noted ADL-Treatment Eating (QC): 6 Oral Hygiene (QC): 6 Shower/Bathe Self (QC): 7 Upper Body Dressing (QC): 5 Lower Body Dressing (QC): 3 (Pt able to thread BLE, stand with CGA x2 and complete pulling over hips with min A for R side (pain in R leg)) On/Off Footwear (QC): 88 (Did not complete bending activities due to BP levels and lightheadedness) Toileting Hygiene (QC): 3 (Pt refuses shower on this date and does not complete BM. Based on pt ability for pant donning/ safety during stance, pt would require CGA throughout stance and min A for thoroughness) toiletin- pt states completes straight cath at home and nursing completes Other Treatments [id number]: Pt expresses lightheadedness, pt agrees to OT tx session. Pt educated on ARU expectations, OT role. Pt is previous pt of ARU, is familiar with expectations. Pt states Mod I at home, though completes SBA-SUP in shower on sc. Pt states "today is one of the worse days," referring to POTS sx. Pt's BP taken in semi-reclined: 117/73, in sit: 69/49, pt returns to supine as pt expresses nausea. Pt's BP in semi reclined 108/65. Pt educated on brain/ vestibular system's plasticity and importance of sitting upright when possible. Pt educated on clear communication for lightheadedness/ dizziness sx, pt agrees. Pt then positioned at 45* HOB elevation and given ~5 min of rest. Upon re-entry, pt's BP 111/71 at 45* HOB incline. Pt agrees to OT/ PT cotreat, pt expresses need for urination and straight cath. PT/ OT hold tx for 30 min due to nursing cathing. Pt and OT discuss setting up a urination/ cath schedule during this time; pt denies, stating she may not need to urinate upon nursing entry and "it just varies." [id number]: Pt seen in bed. Pt agrees to co-treat. Pt's BP assessed in supine by nursin/70. Pt sits EOB: 93/59. Pt completes dressing tasks, stating she completes EOB at home. Applies deodorant/ shirt with s/u and pant donning with min A (above). Pt's BP assessed: 81/ 53. Pt completes stance with CGA and walks to w/c with 2WW. Sits with control. Pt left with PT in w/c. 5113-1665: Pt seen in bed, awakes with verbal entry. Pt states had pain meds and has had difficulty with staying awake. Pt educated on HEP/ theraband ex, pt begins closing eyes and requires cues to maintain attention/ alertness. Pt ma intains till end of session, no questions. Pt educated on completing 10 reps bilaterally when have increased energy, pt agrees. Pt continues eating post- session. HEP left with pt, pt left in bed with all needs met, call light in reach. Education OT Patient Education: Correct positioning, Modified ADL techniques, Purpose of tx/functional activities, Reviewed precautions, Safety issues Teaching Recipient: Patient Teaching Methods: Demonstration, Discussion Response to Teaching: Verbalize Understanding, Return Demonstration, Reinforcement Needed OT Short Term Goals Short Term Goals Time Frame: Aug 18, 2019 Upper body dressin Lower body dressin Putting on/taking off footwear: 4 OT Assisted Goals Felt Hat Flanging Operator Goals Time Frame: August 25, 2019 Eating (QC): 6 Oral Hygiene (QC): 6 Toileting Hygiene (QC): 6 Shower/Bathe Self (QC): 4 Upper Body Dressing (QC): 6 Lower Body Dressing (QC): 6 On/Off Footwear (QC): 6 Additional Goals: 1-Demonstrate ADL Tasks, 2-Verbalize Understanding, 3- ImproveStrength/[place] 1=Demonstrate adherence to instructed precautions during ADL tasks. 2=Patient will verbalize/demonstrate understanding of assistive devices/modifications for ADL. 3=Patient will improve strength/tolerance for activity to enable patient to perform ADL's. OT Education/Plan Problem List/Assessment Assessment: Decreased Activ Tolerance, Decreased UE Strength, Dependent Transfers, Impaired Funct Balance, Impaired I ADL's, Impaired Self-Care Skills Discharge Recommendations Plan/Recommendations: Continue POC Therapy Discharge Recommendati: Intermittent Supervision, Home & Family Treatment Plan/Plan of Care Treatment,Training & Education: Yes Patient would benefit from OT for education, treatment and training to promote independence in ADL's, mobility, safety and/or upper extremity function for ADL's. Plan of Care: ADL Retraining, Functional Mobility, UE Funct Exercise/Act Treatment Duration: August 25, 2019 Frequency: At least 5 of 7 days/Wk (IRF) Estimated Hrs Per Day: 1.5 hours per day Agreement: Yes Rehab Potential: Guarded Time/GCodes Start Time: 08:15 (0930, 1245) Stop Time: 08:50 (1000, 1255) Total Time Billed (hr/min): 75 (35+30+10= 75) Billed Treatment Time [id number] (35): 1, EVM, ADL (35) 4895-5279: (30 min OT/ PT co-treat): 1, ADL 2 (30) 1245-8175 (10): 1, FA (10) Total: 75 CATALINA DE LEON OTR Aug 11, 2019 09:27
[2019-08-11] MEDS: MIDODRINE 10 MG (PROAMATINE) TAB PO SCH ×3 (09:35→21:28)
[2019-08-11] MEDS: KCL 10 MEQ TAB (MICRO K) PO SCH ×3 (09:35→17:00)
[2019-08-11] MEDS: polyethylene glycoL POWDER 17 GM (MIRALAX) PACK PO SCH ×2 (09:35→21:29)
[2019-08-11] MEDS: GABAPENTIN 100 MG (NEURONTIN) CAP PO SCH ×3 (09:35→21:27)
[2019-08-11] MEDS: SENNA W/DOCUSATE (SENOKOT S) TABLET PO SCH ×2 (09:35→21:27)
[2019-08-11] MEDS: DULoxetine 30 MG (CYMBALTA) CAP PO SCH (09:36)
[2019-08-11] MEDS: COLESTIPOL 1 GM (COLESTID) TAB PO SCH ×2 (09:36→21:29)
[2019-08-11] MEDS: FLUDROCORTISONE 0.1 MG (FLORINEF) TAB PO SCH (09:36)
[2019-08-11] MEDS: DOCUSATE SODIUM 100 MG (COLACE) CAP PO SCH ×2 (09:36→21:27)
[2019-08-11] MEDS: MAGNESIUM OXIDE (MAG-OX)400 MG TAB PO SCH ×2 (09:36→17:00)
[2019-08-11] MEDS: FAMOTIDINE 20 MG (PEPCID) TABLET PO SCH (09:36)
[2019-08-11] MEDS: FLUTICASONE NASAL SPRAY (FLONASE) 16 GM BTL NS SCH (09:37)
[2019-08-11] MEDS: NORTHERA PO SCH ×3 (09:39→17:01)
[2019-08-11] MEDS: ONDANSETRON 4 MG (ZOFRAN) ORAL DISSOLVE TAB PO PRN (09:49)
--- NOTE | 2019-08-11 10:29 | Physical Therapy Evaluation ---
PT Evaluation-General Medical Diagnosis Admission Date Aug 09, 2019 at 13:00 Medical Diagnosis: Debility following UTI and orthostasis flare of POTS Onset Date: Aug 06, 2019 Therapy Diagnosis Therapy Diagnosis: impaired mobility, strength, endurance, dizziness and nausea Height/Weight Height (Feet): 5 Height (Inches): 2.00 Weight (Pounds): 144 Weight (Ounces): 0.9 Precautions Precautions/Isolations: Fall Prevention, Standard Precautions Referral Physician: Elham Garg DO Reason for Referral: Evaluation/Treatment Medical History Pertinent Medical History: DM Reviewed History: Yes Social History Home: Single Level Current Living Status: Spouse Entry Into Home: Ramp PT Steps Inside Home: 0 Prior Prior Level of Function SCALE: Activities may be completed with or without assistive devices. 9-Czntwqndit-dpbjzht completes the activity by him/herself with no assistance from a helper. 5-Set-up or Clean-up Assistance-helper sets up or cleans up; patient completes activity. [place] assists only prior to or following the activity. 4-Supervision or Touching Assistance-helper provides verbal cues and/or touching/steadying and/or contact guard assistance as patient completes activity. Assistance may be provided throughout the activity or intermittently. 3-Partial/Moderate Assistance-helper does LESS THAN HALF the effort. [place] lifts, holds or supports trunk or limbs, but provides less than half the effort. 2-Substantial/Maximal Assistance-helper does MORE THAN HALF the effort. [place] lifts or holds trunk or limbs and provides more than half the effort. 3-Wpckfbnwf-yhtbqn does ALL the effort. Patient does none of the effort to complete the activity. Or, the assistance of 2 or more helpers is required for the patient to complete the activity. If activity was not attempted, code reason: 7-Patient Refused. 9-Not Applicable-not attempted and the patient did not perform the activity be fore the current illness, exacerbation or injury. 10-Not Attempted due to Environmental Limitations-(lack of equipment, weather restraints, etc.). 88-Not Attempted due to Medical Conditions or Safety Concerns. Bed Mobility: 6 Transfers (B,C,W/C): 6 Gait: 6 Prior Devices Use: Walker PT Evaluation-Current Subjective Patient in bed pre tx, agrees to PT, has no complaints of pain at rest but has unrated pain during treatment and is nauseated, nurse gives nausea meds but she does vomit in her basin at the end. Will be co-treating with OT due to poor patient mobility, strength, endurance, nausea, dizziness, the need to focus on safety and fall prevention during mobility. Pt/Family Goals "to stop being dizzy" Objective Patient Orientation: Person, Place, Situation ROM/Strength ROM Lower Extremities WNL Strength Lower Extremities 4/5 gross BLE Sensory Hearing: Functional Hand Dominance: Right Sensation Right Lower Extremit: Impaired Sensation Left Lower Extremity: Impaired Sensation Lower Extremities decreased light touch sensation in both feet Transfers Roll Left to Right (QC): 6 Sit to Lying (QC): 3 Lying to Sitting/Side of Bed(Q: 3 Sit to Stand (QC): 4 Chair/Toa-xi-Wwblw Xfer(QC): 4 Toilet Transfer (QC): 4 Car Transfer (QC): 4 Patient performs bed mobility with independence, supine <-> sit min assist, sit <-> stand CGA, transfers CGA, car transfer CGA. Patient needs extra time due to dizziness and nausea, cues for hand placement and safety. Gait Does the Patient Walk?: No and Walking Goal IS indicated Mode of Locomotion: Wheelchair Anticipated Mode of Locomotion: Walk Walk 10 feet (QC): 88 Walk 50 ft with 2 Turns(QC): 88 Walk 150 ft (QC): 88 Walking 10ft/uneven surface-QC: 88 Comments/Gait Description Patient did not ambulate due to nausea and dizziness. BP laying down at beginning of tx was 120/70, sitting 93/59, sitting (after a few minutes) 81/53 Wheelchair Training Does the Pt Use a Wheelchair?: Yes Distance: 150' Wheel 50 ft with 2 turns (QC): 4 Wheel 150 ft (QC): 4 Type of Wheelchair: Manual Very slow, uses both arms and feet to propel Stairs 1 Step (curb) (QC): 88 4 Steps (QC): 88 12 Steps (QC): 88 Balance Sitting Static: Fair Sitting Dynamic: Fair Standing Static: Poor Standing Dynamic: Poor Picking up an Object (QC): 88 Treatment Co-treated with OT for dressing, OT focused on dressing while PT assisted with sitting and standing balance and positioning. Co-treated for 30 min. Assessment/Needs Patient has impaired mobility, strength, endurance, balance. Patient is currently nauseated and vomits in basin at the end of tx. Patient needs extra time to complete tasks due to back pain and nausea. Rehab Potential: Guarded PT Short Term Goals Short Term Goals Time Frame: Aug 18, 2019 Roll Left & Right: 6 Sit to lyin Lying to sitting on side of be: 6 Sit to stand: 4 Chair/ddq-oa-mdnej transfer: 4 Walk 10 feet: 4 Walk 50 feet with two turns: 4 PT Chisel Worker Goals Halfway Goals PT Chisel Worker Goals Time Frame: September 01, 2019 Roll Left & Right (QC): 6 Sit to Lying (QC): 6 Lying-Sitting on Side/Bed(QC): 6 Sit to Stand (QC): 6 Chair/Pvj-gw-Ziqan Xfer(QC): 6 Toilet Transfer (QC): 6 Car Transfer (QC): 6 Does the Patient Walk: No and Walking Goal IS indicated Walk 10 feet (QC): 6 Walk 50ft with 2 Turns (QC): 6 Walk 150 ft (QC): 6 Walking 10ft on Uneven Surface: 6 1 Step (curb) (QC): 4 4 Steps (QC): 4 12 Steps (QC): 88 Picking up an Object (QC): 88 Wheel 50 feet with 2 turns (QC: 9 Wheel 150 feet: 9 PT Plan Problem List Problem List: Activity Tolerance, Functional Strength, Safety, Balance, Gait, Transfer, Bed Mobility, ROM Treatment/Plan Treatment Plan: Continue Plan of Care Treatment Plan: Bed Mobility, Education, Functional Activity [place], Functional Strength, Group Therapy, Gait, Safety, Therapeutic Exercise, Transfers Treatment Duration: September 01, 2019 Frequency: At least 5 of 7 days/Wk (IRF) Estimated Hrs Per Day: 1.5 hours per day Patient and/or Family Agrees t: Yes Safety Risks/Education Patient Education: Transfer Techniques, Correct Positioning, W/C Management, Safety Issues Teaching Recipient: Patient Teaching Methods: Demonstration, Discussion Response to Teaching: Reinforcement Needed Discharge Recommendations Plan Patient will perform bed mobility and transfer training, balance and endurance training, functional strengthening, stair training, gait training, and education, to improve functional mobility and independence at home. Therapy Discharge Recommendati: Home & Family Time/GCodes Time In: 0930 Time Out: 1030 Total Billed Treatment Time: 60 Total Billed Treatment 1 visit EVM 30' FA 30' Co-treated with OT for 30 min. ANGELIC TRAN PT Aug 11, 2019 10:29
--- NOTE | 2019-08-11 10:49 | NUR ---
Pt is asking if she can take her scheduled Tramadol for her back pain. States that she had to stop working w therapy early because of the back & sciatic pain. Night RN did not give the 0600 scheduled dose of tramadol d/t pt drowziness. See his note. Will give the 1400 scheduled Tramadol now, for pt c/o severe back pain.
--- NOTE | 2019-08-11 11:31 | NUR ---
ASKED PT IF SHE TAKES THE TRAMADOL EVERY 8 HOURS AT HOME ? PT STATES, "NO, I TAKE IT EVERY 4 HOURS USUALLY." NOTIFIED DR. VÁZQUEZ OF THIS.
--- NOTE | 2019-08-11 11:39 | PM&R Progress Note ---
Subjective HPI/CC On Admission Date Seen by Provider: Aug 11, 2019 Time Seen by Provider: 10:15 Subjective/Events-last exam Patient doing well today Slept pretty well last night Home med brought in by relative and we will restart that for orthostasis In-out catheter required Tramadol making her drowsy No pain reported Checked meds and labs Conferred with portrait consultant of Systems General: Fatigue Objective Exam Vital Signs Vital Signs Date Time Temp Pulse Resp B/P (MAP) Pulse Ox O2 Delivery O2 Flow Rate FiO2 08/11/19 16:10 36.5 73 14 122/59 (80) 95 Room Air Capillary Refill : Less Than 3 Seconds General Appearance: No Apparent Distress, WD/WN, Chronically ill, Thin, Other (frail) HEENT: PERRL/EOMI, Normal ENT Inspection, Pharynx Normal Neck: Full Range of Motion, Normal Inspection, Non Tender, Supple, Carotid Bruit Respiratory: Chest Non Tender, Lungs Clear, Normal Breath Sounds, No Accessory Muscle Use, No Respiratory Distress Cardiovascular: Regular Rate, Rhythm, No Edema, No Gallop, No JVD, No Murmur, Normal Peripheral Pulses Gastrointestinal: Normal Bowel Sounds, No Organomegaly, No Pulsatile Mass, Non Tender, Soft Back: Normal Inspection, No CVA Tenderness, No Vertebral Tenderness Extremity: Normal Capillary Refill, Normal Inspection, Normal Range of Motion, Non Tender, No Calf Tenderness, No Pedal Edema Neurologic/Psychiatric: Alert, Oriented x3, No Motor/Sensory Deficits (legs 4/5 strength), Normal Mood/Affect Skin: Normal Color, Warm/Dry Lymphatic: No Adenopathy Results/Procedures Lab Patient resulted labs reviewed. FIM Transfers Therapy Code Descriptions/Definitions Functional [place] Measure: 0=Not Assessed/NA 4=Minimal Assistance 1=Total Assistance 5=Supervision or Setup 2=Maximal Assistance 6=Modified [place] 3=Moderate Assistance 7=Complete IndependenceSCALE: Activities may be completed with or without assistive devices. 6-Uvetkfszcs-xrklwiw completes the activity by him/herself with no assistance from a helper. 5-Set-up or Clean-up Assistance-helper sets up or cleans up; patient completes activity. [place] assists only prior to or following the activity. 4-Supervision or Touching Assistance-helper provides verbal cues and/or touching/steadying and/or contact guard assistance as patient completes activity. Assistance may be provided throughout the activity or intermittently. 3-Partial/Moderate Assistance-helper does LESS THAN HALF the effort. [place] lifts, holds or supports trunk or limbs, but provides less than half the effort. 2-Substantial/Maximal Assistance-helper does MORE THAN HALF the effort. [place] lifts or holds trunk or limbs and provides more than half the effort. 8-Rhfzybwrh-xgbcee does ALL the effort. Patient does none of the effort to complete the activity. Or, the assistance of 2 or more helpers is required for the patient to complete the activity. If activity was not attempted, code reason: 7-Patient Refused. 9-Not Applicable-not attempted and the patient did not perform the activity befo re the current illness, exacerbation or injury. 10-Not Attempted due to Environmental Limitations-(lack of equipment, weather re straints, etc.). 88-Not Attempted due to Medical Conditions or Safety Concerns. Roll Left to Right (QC): 6 Sit to Lying (QC): 3 Sit to Stand (QC): 4 Chair/Jrs-ap-Nbytz Xfer(QC): 4 Car Transfer (QC): 4 Gait Training Does the Patient Walk?: No and Walking Goal IS indicated Walk 10 feet (QC): 88 Walk 50 ft with 2 Turns(QC): 88 Walk 150 ft (QC): 88 Walking 10ft/uneven surface-QC: 88 Wheelchair Training Does the Pt Use a Wheelchair?: Yes Distance: 150' Wheel 50 ft with 2 turns (QC): 4 Wheel 150 ft (QC): 4 Type of Wheelchair: Manual Stair Training 1 Step (curb) (QC): 88 4 Steps (QC): 88 12 Steps (QC): 88 Balance Picking up an Object (QC): 88 ADL-Treatment Eating (QC): 6 Oral Hygiene (QC): 6 Shower/Bathe Self (QC): 7 Upper Body Dressing (QC): 5 Lower Body Dressing (QC): 3 (Pt able to thread BLE, stand with CGA x2 and complete pulling over hips with min A for R side (pain in R leg)) Toileting Hygiene (QC): 3 (Pt refuses shower on this date and does not complete BM. Based on pt ability for pant donning/ safety during stance, pt would require CGA throughout stance and min A for thoroughness) Assessment/Plan Assessment and Plan Assess & Plan/Chief Complaint Assessment: (1A) Debility with major fall risk requiring IRF (1) s/p Sepsis (2) Acute UTI completing PO abx now (3) Abdominal pain (4) Hypokalemia (5) Neurogenic bladder-self caths maintained Urology at [facility] regular basis (6) Headache (7) Diabetes mellitus (8) Unsteady gait with POTS (Postoral orthostasis tachycardia syndrome) (9) Physical debility (10) DVT prophylaxis (11) Low back pain chronic w/h/o lumbar spine surgery (12) DM (13) Vit B12 def Plan: Maintain on home meds Permissive hypertension due to severity of her orthostasis when standing up Pain control Bowel regimen with Miralax Intensive therapies Fall risk Straight in/out caths prn Cefdinir to complete 2 more days (1) Physical debility Status: Acute (2) Unsteady gait Status: Acute (3) POTS (postural orthostatic tachycardia syndrome) Status: Chronic (4) Acute UTI Status: Acute (5) History of UTI Status: Chronic (6) Weakness Status: Chronic (7) Hypokalemia Status: Acute (8) Diabetes mellitus Status: Chronic (9) Neurogenic bladder Status: Chronic (10) DVT prophylaxis Status: Acute (11) Headache Status: Resolved Resolution Date/Time: 08/07/19 @ 12:08 (12) Low back pain (13) GERD (gastroesophageal reflux disease) Status: Chronic (14) Neuropathy MALIKA VÁZQUEZ DO Aug 11, 2019 11:39
--- NOTE | 2019-08-11 12:43 | NUR ---
CM/SS ADMISSION Patient was admitted to ARU from [facility] 08/09/19 for debility with major fall risk, status post sepsis. Additional health challenges are, in part, neurogenic bladder with self catheterizations, NIDDM, low back pain with history of lumbar spine surgery. Patient is currently experiencing nausea/vomiting, uncomfortable for her regarding therapy participation. Patient resides at home with her spouse, Harvinder Galeano, in [place], [place]. Her daughter Rafael Galeano also resides in [facility] and comes daily to check on their status. Patient's prior level of functioning was described as modified independent with use of a 4WW. PCP: Dr. Omi Wynne, [facility], [facility]. PHARMACY: [facility], along with [facility] and [facility] pharmacies. INSURANCE: Medicare, I DME: Has 4WW, has ordered an Up Walker, bath chair, grab bars in bathroom, tub/shower arrangement. CONTACTS: Harvinder Galeano, Spouse [address] [place] [address] Rafael Galeano, Daughter [address] [place] [address] HHC: Patient was current with [facility] in [facility], agency has suspended her services and they should be resumed upon discharge from ARU. Patient understood the purpose and process of the Weekly Team Conference. Her stated goal is to return home as soon as safely able to do so. Barriers to discharge are not fully clarified at this time. Patient's overall physical recovery is paramount to her being able to return home.
--- NOTE | 2019-08-11 13:54 | Physical Therapy Daily Note ---
PT Daily Note-Current Subjective Patient in bed pre tx, agrees reluctantly to PT, has no complaints of pain at rest but patient is very drowsy and still nauseated, has basin right by her side. Agrees to exercises in bed. Appearance Patient in bed post tx with nurse call, phone, tray, all needs met. Mental Status Patient Orientation: Person, Place, Situation Transfers SCALE: Activities may be completed with or without assistive devices. 4-Cqxwyppoia-jterpch completes the activity by him/herself with no assistance from a helper. 5-Set-up or Clean-up Assistance-helper sets up or cleans up; patient completes activity. [place] assists only prior to or following the activity. 4-Supervision or Touching Assistance-helper provides verbal cues and/or touching/steadying and/or contact guard assistance as patient completes activity. Assistance may be provided throughout the activity or intermittently. 3-Partial/Moderate Assistance-helper does LESS THAN HALF the effort. [place] lifts, holds or supports trunk or limbs, but provides less than half the effort. 2-Substantial/Maximal Assistance-helper does MORE THAN HALF the effort. [place] lifts or holds trunk or limbs and provides more than half the effort. 8-Vzsvmrhhn-wyuksf does ALL the effort. Patient does none of the effort to complete the activity. Or, the assistance of 2 or more helpers is required for the patient to complete the activity. If activity was not attempted, code reason: 7-Patient Refused. 9-Not Applicable-not attempted and the patient did not perform the activity before the current illness, exacerbation or injury. 10-Not Attempted due to Environmental Limitations-(lack of equipment, weather restraints, etc.). 88-Not Attempted due to Medical Conditions or Safety Concerns. Exercises Supine Ex: Ankle pumps, Quad Set, Glut sets, Heel Slides, Short Arc Quads, Straight leg raise, Hip abd/add Supine Reps: 20 Treatments LE exercise Assessment Current Status: Poor Progress Patient needed constant cues to keep awake and stay on task. PT Short Term Goals Short Term Goals Time Frame: Aug 18, 2019 Roll Left & Right: 6 Sit to lyin Lying to sitting on side of be: 6 Sit to stand: 4 Chair/dba-hv-ulizp transfer: 4 Walk 10 feet: 4 Walk 50 feet with two turns: 4 PT Detention Goals Heat Treatment Technician Goals PT Detention Goals Time Frame: September 01, 2019 Roll Left & Right (QC): 6 Sit to Lying (QC): 6 Lying-Sitting on Side/Bed(QC): 6 Sit to Stand (QC): 6 Chair/Vaq-af-Wnnis Xfer(QC): 6 Toilet Transfer (QC): 6 Car Transfer (QC): 6 Does the Patient Walk: No and Walking Goal IS indicated Walk 10 feet (QC): 6 Walk 50ft with 2 Turns (QC): 6 Walk 150 ft (QC): 6 Walking 10ft on Uneven Surface: 6 1 Step (curb) (QC): 4 4 Steps (QC): 4 12 Steps (QC): 88 Picking up an Object (QC): 88 Wheel 50 feet with 2 turns (QC: 9 Wheel 150 feet: 9 PT Plan Problem List Problem List: Activity Tolerance, Functional Strength, Safety, Balance, Gait, Transfer, Bed Mobility, ROM Treatment/Plan Treatment Plan: Continue Plan of Care Treatment Plan: Bed Mobility, Education, Functional Activity Bushra, Functional Strength, Group Therapy, Gait, Safety, Therapeutic Exercise, Transfers Treatment Duration: September 01, 2019 Frequency: At least 5 of 7 days/Wk (IRF) Estimated Hrs Per Day: 1.5 hours per day Patient and/or Family Agrees t: Yes Safety Risks/Education Patient Education: Correct Positioning, Safety Issues Teaching Recipient: Patient Teaching Methods: Demonstration, Discussion Response to Teaching: Reinforcement Needed Time/GCodes Time In: 1330 Time Out: 1345 Total Billed Treatment Time: 15 Total Billed Treatment 1 visit EX 15' ANGELIC TRAN PT Aug 11, 2019 13:54
--- NOTE | 2019-08-11 14:05 | ST Cognitive Linguistic Eval ---
Speech Evaluation-General Medical Diagnosis Debility following UTI and orthostasis flare of POTS Onset Date: Aug 06, 2019 Therapy Diagnosis Therapy Diagnosis: Cognitive-communication Referral Referring Physician: Dr. Garg Medical History Pertinent Medical History: DM Reviewed History: Yes Social History Current Living Status: Spouse Speech PLF-Current Status Prior Level of Function Patient lived at home with her prior to becoming ill. Patient was independent for her daily needs. Subjective Patient was pleasant and cooperative with the cognitive assessment. Language Eval: Auditory Comprehends Simple Yes/No Ques: Functional Indent/Objects Multiple [place]: Functional Ident/Pics in Multiple [place]: Functional Follows 1-Step Commands: Functional Follows Complex Directions: Functional Follows General Conversations: Functional Language Eval: Verbal Language Completes Spontaneous Greeting: Functional Produces Auto, Serial Info: Functional Imitates Simple Words/Phrases: Functional Word Finding: Functional Requests Basic Needs: Functional States Basic Personal Info: Functional Expresses Complex Ideas: Functional Objective Cognitive Domain Attention: WNL Memory: Mild Problem Solving: Functional Executive Functions: WNL Visuospatial Skills: WNL Composite Severity Rating: WNL Clock Drawing Severity Rating: WNL Objective Formal/Standardized Tests [facility] Mental Status ([facility]) Results 27/30, Normal range of function Oral Motor/Speech Production Within Normal Limits Impression Patient is a pleasant 69 year old woman who was hospitalized due to illness. She was given the [facility] with a score of 27/30 obtained. Patient does not qualify for further ST services at this time. Speech Patient Assess Expression of Ideas/Wants: Expression (4) Understanding Verbal Content: Understands (4) Brief Interview-Mental Status: Yes Repetition of Three Words: Three (3) Temporal Orientation: Year: Correct (3) Temporal Orientation: Month: Accurate within 5 days(2) Temporal Orientation: Day: Correct (1) Recall : Wear to say "Sock": Yes, no cue required (2) Recall : Color: Yes, no cue required (2) Recall : Bed: Yes,after cueing (1) Memory/Recall Ability: Current season, Location of own room, That he or she is in a hsp/hsp unit Speech-Plan Patient/Family Goals Patient/Family Goals: Patient plans on returning home where she lives with her upon hospital discharge. Treatment Plan Speech Therapy Treatment Plan: Discontinue ST Treatment Duration: Aug 11, 2019 Frequency: 1 time per week Estimated Hrs Per Day: .25 hour per day Rehab Potential: Guarded Barriers to Learning: None identified Pt/Family Agrees to Plan: Yes Safety Risks/Education Teaching Recipient: Patient Teaching Methods: Discussion Response to Teaching: Verbalize Understanding Education Topics Provided: Safety within her room and communication of wants/needs Time Speech Therapy Time In: 12:45 Speech Therapy Time Out: 13:15 Total Billed Time: 30 Billed Treatment Time 1. SPSNDCOMP Yes MARYSE ELDRIDGE Aug 11, 2019 14:05
--- NOTE | 2019-08-11 14:57 | NUR ---
"RD ASSESSMENT PMHx: HTN; hypotension; GERD; DM PT INTERACTION: Pt was awake and pleasant during nutrition assessment. Pt states current appetite is poor. Note avg PO intake 58% x2d, per chart review. Pt states recent issues with nausea, but not vomiting. Pt states no issues constipation, though she has not had a BM since 08/01. Note pt currently on bowel regimen of Colace BID; Senna BID; and Miralax BID, per chart review. ABNORMAL NUTRITION-RELATED LAB VALUES LOW: Cl 93; Pro 6.3; alb 3.1 HIGH: glu 157 Est. kcal needs: 6047-6579 kcal | 25-30 kcal/kg Est. Pro needs: 62-74 g Pro | 1.0-1.2 g Pro/kg PES STATEMENT: Inadequate oral intake (NI-2.1) related to loss of appetite | nausea | constipation as evidenced by pt interview | avg PO intake 58% x2d INTERVENTION: Continue with current diet order of CHO 75g/m 3snack diet. Add Glucerna (vary) to meals TID, for increased kcal intake. Provides 220 kcal and 10 g Pro per serving. Will continue to follow and reassess as pt needs, intake, and status change. MONITOR/EVALUATE: PO Intake; Plan of Care; Hydration Status; Weight Status; Lab Values Jimmy Boykin, MS, RD, LD"
[2019-08-11 16:10] VITALS: BP 122/59
[2019-08-11] MEDS: ENOXAPARIN 40 MG/0.4 ML (LOVENOX) SYR SC SCH (17:02)
[2019-08-12] MEDS: inSUlin ASPART (NovoLOG) 1 UNIT/0.01 ML (CHARGE PER UNIT) SC SCH (05:25)
[2019-08-12 05:51] VITALS: BP 135/80
[2019-08-12] MEDS: glipiZIDE 5 MG (GLUCOTROL) TAB PO SCH (06:48)
[2019-08-12] MEDS: metFORMIN 500 MG (GLUCOPHAGE) TAB PO SCH ×2 (06:48→17:28)
[2019-08-12] MEDS: LIPASE/AMYLASE/PROTEASE (PANCRELIPASE) 5,000 UNITS CAP PO SCH ×4 (06:49→21:26)
[2019-08-12] MEDS: polyethylene glycoL POWDER 17 GM (MIRALAX) PACK PO SCH ×2 (08:53→21:29)
[2019-08-12] MEDS: KCL 10 MEQ TAB (MICRO K) PO SCH ×3 (08:53→17:28)
[2019-08-12] MEDS: DOCUSATE SODIUM 100 MG (COLACE) CAP PO SCH ×2 (08:53→21:27)
[2019-08-12] MEDS: MAGNESIUM OXIDE (MAG-OX)400 MG TAB PO SCH ×2 (08:53→17:28)
[2019-08-12] MEDS: FLUDROCORTISONE 0.1 MG (FLORINEF) TAB PO SCH (08:54)
[2019-08-12] MEDS: GABAPENTIN 100 MG (NEURONTIN) CAP PO SCH ×3 (08:54→21:26)
[2019-08-12] MEDS: DULoxetine 30 MG (CYMBALTA) CAP PO SCH (08:54)
[2019-08-12] MEDS: FLUTICASONE NASAL SPRAY (FLONASE) 16 GM BTL NS SCH (08:55)
[2019-08-12] MEDS: NORTHERA PO SCH ×3 (08:56→17:29)
[2019-08-12] MEDS: COLESTIPOL 1 GM (COLESTID) TAB PO SCH ×2 (08:58→21:26)
[2019-08-12] MEDS: FAMOTIDINE 20 MG (PEPCID) TABLET PO SCH (08:58)
[2019-08-12] MEDS: MIDODRINE 10 MG (PROAMATINE) TAB PO SCH ×3 (09:00→21:26)
[2019-08-12] MEDS: SENNA W/DOCUSATE (SENOKOT S) TABLET PO SCH ×2 (09:01→21:27)
--- NOTE | 2019-08-12 09:10 | Occupational Ther Daily Note ---
OT Current Status-Daily Note Subjective Pt seen upright in recliner chair eating, pt agreeable to OT tx session. Pt states slept well, is feeling "okay" this morning. Pt seen again in later morning. Pt agrees to OT tx session, states a minimal amount of pain in back. Mental Status/Objective Patient Orientation: Person, Place, Time, Situation ADL-Treatment Therapy Code Descriptions/Definitions Functional [place] Measure: 0=Not Assessed/NA 4=Minimal Assistance 1=Total Assistance 5=Supervision or Setup 2=Maximal Assistance 6=Modified [place] 3=Moderate Assistance 7=Complete IndependenceSCALE: Activities may be completed with or without assistive devices. 0-Egeqiqwcjq-zchvyxp completes the activity by him/herself with no assistance from a helper. 5-Set-up or Clean-up Assistance-helper sets up or cleans up; patient completes activity. [place] assists only prior to or following the activity. 4-Supervision or Touching Assistance-helper provides verbal cues and/or touching/steadying and/or contact guard assistance as patient completes activity. Assistance may be provided throughout the activity or intermittently. 3-Partial/Moderate Assistance-helper does LESS THAN HALF the effort. [place] lifts, holds or supports trunk or limbs, but provides less than half the effort. 2-Substantial/Maximal Assistance-helper does MORE THAN HALF the effort. [place] lifts or holds trunk or limbs and provides more than half the effort. 5-Tvefbmtbj-xvgucr does ALL the effort. Patient does none of the effort to complete the activity. Or, the assistance of 2 or more helpers is required for the patient to complete the activity. If activity was not attempted, code reason: 7-Patient Refused. 9-Not Applicable-not attempted and the patient did not perform the activity before the current illness, exacerbation or injury. 10-Not Attempted due to Environmental Limitations-(lack of equipment, weather restraints, etc.). 88-Not Attempted due to Medical Conditions or Safety Concerns. Eating (QC): 6 Bathing Location: L Arm, R Arm, L Upper Leg, R Upper Leg, L Lower Leg (including foot), R Lower Leg (including foot), Chest, Abdomen, Perineal Area Shower/Bathe Self (QC): 3 (Min A due to decreased BP during LE tasks (requires assist with one leg and bottom in stance due to fatigue.) Upper Body Dressing (QC): 3 (min A this date) Lower Body Dressing (QC): 2 (Max A due to fatigue/ low BP during bending tasks. Pt educated on use of funeral location manager for LE dressing to encourage increased IND. Pt agrees, stating she has had to utilize funeral location manager/ sock aide prior. ) On/Off Footwear: 3 (min A on L foot and CGA bending.) Toilet Transfer (QC): 3 (min A sit to stand from BSC) Other Treatment [id number] states desire for BM, BP assessed in sittin/ 65. pt completes sit to stand from recliner with Min A, utilizes 2WW to sit on commode with CGA. Pt attempts BM/ BP assessed in sit 74/52, unable to complete at this time. Pt completes sponge bath on commode- increased time due to c/o fatigue/ lightheadedness. BP not able to be assessed x2 attempts. Pt requests lay in bed, assist x2 required for safety of transfer. Pt sit to stand with Min A x2, assist with pant donning, ambulates to bed and sits/ unable to scoot toward HOB. Pt sit to supine with SBA, TD for reaching HOB. BP assessed in supine 86/ 47. Pt continues to c/o lightheadedness. All needs met, call light on lap, pt left sitting upright in bed ~50* HOB elevation with nursing present. [id number] (40): Pt sit to stand from bed with SBA. pt ambulates with 2WW to w/c, pushed to therapy gym. Pt completes 10 min minimal resistance arm bike, completes with 3 rest breaks. Pt returns to room, sits in recliner with CGA. pt states some dizziness and desire for urination. Pt's nurse notified, pt educated on need to move to bed. Pt completes sit to stand and transfer with CGA; pt doffs pants while standing EOB with CGA. Pt completes bed mob with cues for moving toward HOB with IND. Pt left in room/ supine with no c/o dizziness/ lightheadedness, all needs met, call light in reach. Education OT Patient Education: Correct positioning, Energy conservation, Progress toward Goal/Update tx plan, Safety issues, Transfer techniques, Use of adapted equ ipment Teaching Recipient: Patient Teaching Methods: Demonstration, Discussion Response to Teaching: Verbalize Understanding, Return Demonstration, Reinforcement Needed OT Short Term Goals Short Term Goals Time Frame: Aug 18, 2019 Upper body dressin Lower body dressin Putting on/taking off footwear: 4 OT Halfway Goals Halfway Goals Time Frame: August 25, 2019 Eating (QC): 6 Oral Hygiene (QC): 6 Toileting Hygiene (QC): 6 Shower/Bathe Self (QC): 4 Upper Body Dressing (QC): 6 Lower Body Dressing (QC): 6 On/Off Footwear (QC): 6 Additional Goals: 1-Demonstrate ADL Tasks, 2-Verbalize Understanding, 3-ImproveStrength/[place] 1=Demonstrate adherence to instructed precautions during ADL tasks. 2=Patient will verbalize/demonstrate understanding of assistive devices/modifications for ADL. 3=Patient will improve strength/tolerance for activity to enable patient to perform ADL's. OT Education/Plan Problem List/Assessment Assessment: Decreased Activ Tolerance, Decreased UE Strength, Dependent Transfers, Impaired Bed Mobility, Impaired Funct Balance, Impaired I ADL's, Impaired Self-Care Skills Discharge Recommendations Plan/Recommendations: Continue POC Therapy Discharge Recommendati: Intermittent Supervision, Home & Family Treatment Plan/Plan of Care Treatment,Training & Education: Yes Patient would benefit from OT for education, treatment and training to promote independence in ADL's, mobility, safety and/or upper extremity function for ADL's. Plan of Care: ADL Retraining, Functional Mobility, UE Funct Exercise/Act Treatment Duration: August 25, 2019 Frequency: At least 5 of 7 days/Wk (IRF) Estimated Hrs Per Day: 1.5 hours per day Agreement: Yes Rehab Potential: Guarded Time/GCodes Start Time: 08:00 (1115) Stop Time: 09:00 (1155) Total Time Billed (hr/min): 100 (60+40) Billed Treatment Time [id number]: 1, ADL 4 (60) [id number]: 1, EX 2, ADL (40) CATALINA DE LEON OTR Aug 12, 2019 09:10
[2019-08-12] MEDS: ONDANSETRON 4 MG (ZOFRAN) ORAL DISSOLVE TAB PO PRN (10:23)
--- NOTE | 2019-08-12 10:54 | Physical Therapy Daily Note ---
PT Daily Note-Current Subjective Pt reports "I don't feel very good." Pt agrees to try therapy. Pain rated 6/10 LB. Pt c/o "I feel like I am going to pass out" during standing. Pt c/o nausea following standing bedside. Mental Status Patient Orientation: Person, Place, Situation Transfers SCALE: Activities may be completed with or without assistive devices. 6-Hzrrknshll-tmmfjsr completes the activity by him/herself with no assistance from a helper. 5-Set-up or Clean-up Assistance-helper sets up or cleans up; patient completes activity. [place] assists only prior to or following the activity. 4-Supervision or Touching Assistance-helper provides verbal cues and/or touching/steadying and/or contact guard assistance as patient completes activity. Assistance may be provided throughout the activity or intermittently. 3-Partial/Moderate Assistance-helper does LESS THAN HALF the effort. [place] lifts, holds or supports trunk or limbs, but provides less than half the effort. 2-Substantial/Maximal Assistance-helper does MORE THAN HALF the effort. [place] lifts or holds trunk or limbs and provides more than half the effort. 8-Wmnalekeo-fqgjmb does ALL the effort. Patient does none of the effort to complete the activity. Or, the assistance of 2 or more helpers is required for the patient to complete the activity. If activity was not attempted, code reason: 7-Patient Refused. 9-Not Applicable-not attempted and the patient did not perform the activity before the current illness, exacerbation or injury. 10-Not Attempted due to Environmental Limitations-(lack of equipment, weather restraints, etc.). 88-Not Attempted due to Medical Conditions or Safety Concerns. Exercises Supine Ex: Ankle pumps, Quad Set, Glut sets, Heel Slides, Short Arc Quads, Hip abd/add Supine Reps: 20 Seated Therapy Exercises: Ankle pumps, Long arc quads, Hip flexion, Hip abd/add Seated Reps: 20 Treatments Supine BP: 132/80 pr 89bpm. Seated BP: 111/72, pr 89bpm. Standing BP 55/33. Supine: 160/90, pr 97bpm. Supine 5 min later 136/80, pr 90bpm. Pt seen for supine and sitting LE ther ex. Pt BP dropped upon standing, Pt back to supine, SBA where BP returned to normal but pt nauseated. Nursing notified. Pt repeated supine therex. Assessment Current Status: Poor Progress Pt limited by orthostatic hypotension. Unable to tolerate standing >30sec. PT Short Term Goals Short Term Goals Time Frame: Aug 18, 2019 Roll Left & Right: 6 Sit to lyin Lying to sitting on side of be: 6 Sit to stand: 4 Chair/obm-qc-uugcy transfer: 4 Walk 10 feet: 4 Walk 50 feet with two turns: 4 PT Custodial Goals Custodial Goals PT Custodial Goals Time Frame: September 01, 2019 Roll Left & Right (QC): 6 Sit to Lying (QC): 6 Lying-Sitting on Side/Bed(QC): 6 Sit to Stand (QC): 6 Chair/Oir-rj-Wuixp Xfer(QC): 6 Toilet Transfer (QC): 6 Car Transfer (QC): 6 Does the Patient Walk: No and Walking Goal IS indicated Walk 10 feet (QC): 6 Walk 50ft with 2 Turns (QC): 6 Walk 150 ft (QC): 6 Walking 10ft on Uneven Surface: 6 1 Step (curb) (QC): 4 4 Steps (QC): 4 12 Steps (QC): 88 Picking up an Object (QC): 88 Wheel 50 feet with 2 turns (QC: 9 Wheel 150 feet: 9 PT Plan Treatment/Plan Treatment Plan: Continue Plan of Care Treatment Plan: Bed Mobility, Education, Functional Activity [place], Functional Strength, Group Therapy, Gait, Safety, Therapeutic Exercise, Transfers Treatment Duration: September 01, 2019 Frequency: At least 5 of 7 days/Wk (IRF) Estimated Hrs Per Day: 1.5 hours per day Patient and/or Family Agrees t: Yes Time/GCodes Time In: 945 Time Out: 1030 Total Billed Treatment Time: 45 Total Billed Treatment 1, ther ex 45' JONATHAN GUIDRY CPTA Aug 12, 2019 10:54
--- NOTE | 2019-08-12 11:47 | PM&R Progress Note ---
Subjective HPI/CC On Admission Date Seen by Provider: Aug 12, 2019 Time Seen by Provider: 12:00 Subjective/Events-last exam Patient doing well overall Slept pretty well last night getting adjusted Home med brought in by relative and we restarted that for orthostasis In-out catheter required regularly as she has at home Tramadol making her drowsy so that will be limited and instead of scheduled will make it prn pain No BM since 08/06 so will give suppository and SSE if needed No pain reported Checked meds and labs Conferred with marketing project manager of Systems General: Fatigue Gastrointestinal: Constipation Objective Exam Vital Signs Vital Signs Date Time Temp Pulse Resp B/P (MAP) Pulse Ox O2 Delivery O2 Flow Rate FiO2 08/13/19 17:27 36.2 77 18 143/79 (100) 96 Room Air Capillary Refill : Less Than 3 Seconds General Appearance: No Apparent Distress, WD/WN, Chronically ill, Thin, Other (frail) HEENT: PERRL/EOMI, Normal ENT Inspection, Pharynx Normal Neck: Full Range of Motion, Normal Inspection, Non Tender, Supple, Carotid Bruit Respiratory: Chest Non Tender, Lungs Clear, Normal Breath Sounds, No Accessory Muscle Use, No Respiratory Distress Cardiovascular: Regular Rate, Rhythm, No Edema, No Gallop, No JVD, No Murmur, Normal Peripheral Pulses Gastrointestinal: Normal Bowel Sounds, No Organomegaly, No Pulsatile Mass, Non Tender, Soft Back: Normal Inspection, No CVA Tenderness, No Vertebral Tenderness Extremity: Normal Capillary Refill, Normal Inspection, Normal Range of Motion, Non Tender, No Calf Tenderness, No Pedal Edema Neurologic/Psychiatric: Alert, Oriented x3, No Motor/Sensory Deficits (legs 4/5 strength), Normal Mood/Affect Skin: Normal Color, Warm/Dry Lymphatic: No Adenopathy Results/Procedures Lab Patient resulted labs reviewed. FIM Transfers Therapy Code Descriptions/Definitions Functional [place] Measure: 0=Not Assessed/NA 4=Minimal Assistance 1=Total Assistance 5=Supervision or Setup 2=Maximal Assistance 6=Modified [place] 3=Moderate Assistance 7=Complete IndependenceSCALE: Activities may be completed with or without assistive devices. 2-Fwqdaknilv-cnlkimh completes the activity by him/herself with no assistance from a helper. 5-Set-up or Clean-up Assistance-helper sets up or cleans up; patient completes activity. [place] assists only prior to or following the activity. 4-Supervision or Touching Assistance-helper provides verbal cues and/or touching/steadying and/or contact guard assistance as patient completes activity. Assistance may be provided throughout the activity or intermittently. 3-Partial/Moderate Assistance-helper does LESS THAN HALF the effort. [place] lifts, holds or supports trunk or limbs, but provides less than half the effort. 2-Substantial/Maximal Assistance-helper does MORE THAN HALF the effort. [place] lifts or holds trunk or limbs and provides more than half the effort. 1-Clsezatxq-wxijmc does ALL the effort. Patient does none of the effort to complete the activity. Or, the assistance of 2 or more helpers is required for the patient to complete the activity. If activity was not attempted, code reason: 7-Patient Refused. 9-Not Applicable-not attempted and the patient did not perform the activity before the current illness, exacerbation or injury. 10-Not Attempted due to Environmental Limitations-(lack of equipment, weather restraints, etc.). 88-Not Attempted due to Medical Conditions or Safety Concerns. Roll Left to Right (QC): 6 Sit to Lying (QC): 3 Sit to Stand (QC): 4 Chair/Mgy-wa-Xoqow Xfer(QC): 4 Car Transfer (QC): 4 Gait Training Does the Patient Walk?: Yes Walk 10 feet (QC): 88 Walk 50 ft with 2 Turns(QC): 88 Walk 150 ft (QC): 88 Walking 10ft/uneven surface-QC: 88 Wheelchair Training Does the Pt Use a Wheelchair?: Yes Distance: 150' Wheel 50 ft with 2 turns (QC): 4 Wheel 150 ft (QC): 4 Type of Wheelchair: Manual Stair Training 1 Step (curb) (QC): 88 4 Steps (QC): 88 12 Steps (QC): 88 Balance Picking up an Object (QC): 88 ADL-Treatment Eating (QC): 6 Oral Hygiene (QC): 6 Bathing Location: L Arm, R Arm, L Upper Leg, R Upper Leg, L Lower Leg (including foot), R Lower Leg (including foot), Chest, Abdomen, Perineal Area Shower/Bathe Self (QC): 3 (Min A due to decreased BP during LE tasks (requires assist with one leg and bottom in stance due to fatigue.) Upper Body Dressing (QC): 3 (min A this date) Lower Body Dressing (QC): 2 (Max A due to fatigue/ low BP during bending tasks. Pt educated on use of business applications developer for LE dressing to encourage increased IND. Pt agrees, stating she has had to utilize business applications developer/ sock aide prior. ) On/Off Footwear (QC): 3 (min A on L foot and CGA bending.) Toileting Hygiene (QC): 3 (Pt refuses shower on this date and does not complete BM. Based on pt ability for pant donning/ safety during stance, pt would require CGA throughout stance and min A for thoroughness) Toilet Transfer (QC): 3 (min A sit to stand from [facility]) Assessment/Plan Assessment and Plan Assess & Plan/Chief Complaint Assessment: (1A) Debility with major fall risk requiring IRF (1) s/p Sepsis (2) Acute UTI completing PO abx now (3) Abdominal pain (4) Hypokalemia (5) Neurogenic bladder-self caths maintained Urology at [facility] regular basis (6) Headache (7) Diabetes mellitus (8) Unsteady gait with POTS (Postoral orthostasis tachycardia syndrome) (9) Physical debility (10) DVT prophylaxis (11) Low back pain chronic w/h/o lumbar spine surgery (12) DM (13) Vit B12 def Plan: Maintain on home meds Permissive hypertension due to severity of her orthostasis when standing up Pain control Bowel regimen to intensify Intensive therapies Fall risk Straight in/out caths prn Cefdinir to complete 1 more day (1) Physical debility Status: Acute (2) Unsteady gait Status: Acute (3) POTS (postural orthostatic tachycardia syndrome) Status: Chronic (4) Acute UTI Status: Acute (5) History of UTI Status: Chronic (6) Weakness Status: Chronic (7) Hypokalemia Status: Acute (8) Diabetes mellitus Status: Chronic (9) Neurogenic bladder Status: Chronic (10) DVT prophylaxis Status: Acute (11) Headache Status: Resolved Resolution Date/Time: 08/07/19 @ 12:08 (12) Low back pain (13) GERD (gastroesophageal reflux disease) Status: Chronic (14) Neuropathy MALIKA VÁZQUEZ DO Aug 12, 2019 11:47
--- NOTE | 2019-08-12 11:49 | Individualized Plan of Care ---
Individualized Plan of Care Rehab Nursing IPOC Order Admission Date Aug 09, 2019 at 13:00 Current Orders Orders Admission Order(Inpt,Obs,Sdc) (08/08/19 20:26) Vital Signs: Per Unit Policy ( 08,16,00 (08/08/19 20:26) Walter Chauhan 09,21 (08/08/19 20:26) Mushroom Packer-Inpt Rehab Con (08/08/19:) Rehab Nursing Orders-Ipoc (08/08/19 20:) Physical Therapy Rehab Orders (08/08/19 20:26) Occupational Therapy Rehab Ord (08/08/19:26) Speech Therapy Rehab Orders (08/08/19:) General/Regular (08/09/19 Breakfast) Intake & Output 06,14,22 (08/08/19 20:26) Precautions (Aru) (08/08/19:) Weekly Weight WEEK (08/08/19:) Rehab-Intensity Of Therapy (08/08/19 20:) Initiate Admission Nursing Pro .admission (08/08/19 20:26) Acetaminophen Tablet (Tylenol Tablet) (08/08/19 20:30) Alprazolam Tablet (Xanax Tablet) (08/08/19 20:30) Calcium Carbonate Chew Tablet (Antacid C (08/08/19 20:30) Diphenhydramine Tablet (Benadryl Tablet) (08/08/19 20:30) Docusate Sodium Capsule (Colace Capsule) (08/08/19 21:00) Docusate Sodium Capsule (Colace Capsule) (08/08/19 20:30) Bisacodyl Suppository (Dulcolax Supposit (08/08/19 20:30) Lactulose Oral Solution (Enulose Oral So (08/08/19 20:30) Na Phos/Na Biphos Enema (Fleet Enema Sushil (08/08/19 20:30) Guaifenesin/Codeine Syrup (Robitussin Ac (08/08/19 20:30) Loperamide Tablet (Imodium Tablet) (08/08/19 20:30) Melatonin Tablet (Melatonin Tablet) (08/08/19 20:30) Polyethylene Glycol Powder Pkt (Miralax (4/17/20 21:00) Ondansetron Oral Dissolve Tab (Zofran (08/08/19 20:30) Senna S Tablet (Senokot S Tablet) (08/08/19 21:00) Initiate Admission Nursing Pro .admission (08/08/19 20:26) Cbc With Automated Diff (08/10/19 06:00) Comprehensive Metabolic Panel (08/10/19 06:00) Transfer - Bed/Room/Location (08/09/19 12:59) Docusate Sodium Capsule (Colace Capsule) (08/09/19 14:00) Cefdinir Capsule (Omnicef Capsule) (08/09/19 21:00) Famotidine Tablet (Pepcid Tablet) (08/09/19 21:00) Tramadol Tablet (Ultram Tablet) (08/09/19 14:00) Colestipol Tablet (Colestid Tablet) (08/09/19 21:00) Cyclobenzaprine Tablet (Flexeril Tablet) (08/09/19 14:00) Duloxetine Capsule (Cymbalta Capsule) (08/10/19 09:00) Fludrocortisone Tablet (Florinef Tablet) (08/10/19 09:00) Fluticasone Nasal [place] (Flonase Nasal S (08/10/19 09:00) Gabapentin Capsule/Tablet (Neurontin Cap (08/09/19 21:00) Glipizide Tablet (Glucotrol Tablet) (08/10/19 06:30) Lipase/Amylase/Protease Caps (Pancrelipa (08/09/19 17:00) Magnesium Oxide Tablet (Mag Ox Tablet) (08/09/19 18:00) Metformin Tablet (Glucophage Tablet) (08/09/19 17:00) Midodrine Tablet (Proamatine) (08/09/19 21:00) Potassium Chloride (Tablet) (Klor Con Ta (08/09/19 18:00) Promethazine Tablet (Phenergan Tablet) (08/09/19 14:00) Clonazepam Tablet (Klonopin Tablet) (08/09/19 14:00) Enoxaparin Injection (Lovenox Injection) (08/09/19 18:00) Accucheck Daily DAILY (08/09/19 14:11) Cho 75g/M 3snack (21-2400 Ash) (08/09/19 Dinner) Ambulate 08,12,20 (08/09/19 15:55) Sequential Compression Device Q4H (08/09/19 15:55) Dvt/Vte Risk - Notifiy Physici Q4H (08/09/19 15:55) Accucheck Achs ACHS (08/09/19 16:06) Insulin Aspart (Novolog) (Novolog (Charg (08/09/19 17:00) Non-Formulary Medication (Non-Formulary (08/10/19 18:00) Famotidine Tablet (Pepcid Tablet) (08/12/19 09:00) Straight Cath (Urinary) (08/11/19 11:48) Patient Visit (08/11/19 ) Pt Eval Moderate Complexity (08/11/19 ) Functional Activities, Ea 15 (08/11/19 ) Patient Visit (08/11/19 ) Exercise Therap, Ea 15 Min (08/11/19 ) Patient Visit (08/11/19 ) Speech Sound Lang Comp (08/11/19 ) Dietary Consult (08/11/19 19:42) Patient Visit (08/12/19 ) Exercise Therap, Ea 15 Min (08/12/19 ) Rehab Nursing Orders: Ongoing Assess. of Cognitive Status, Ongoing Assess. of Function Status, Bladder Management, Bladder Scan, Bladder Training, Bowel Management, Bowel Training, Disease Management & Educaiton, DVT Prophylaxis, Fall Prevention, Fluid/Electrolyte/Nutrition Mgmt, Infection Prevention, Medication Management & Education, Management of Risks & Complications, Management of Skin Intergrity, Nutrition Management, Pain Management, Patient/Family Support, Safety Management Intensity of Therapy to be met Patient to be seen: Min.3h per day/5 of 7d PT IPOC Problem List: Activity Tolerance, Functional Strength, Safety, Balance, Gait, Transfer, Bed Mobility, ROM Treatment Plan: Continue Plan of Care Bed Mobility, Education, Functional Activity [place], Functional Strength, Group Therapy, Gait, Safety, Therapeutic Exercise, Transfers Treatment Duration: September 01, 2019 Frequency: At least 5 of 7 days/Wk (IRF) Estimated Hrs Per Day: 1.5 hours per day OT IPOC Problems: Decreased Activ Tolerance, Decreased UE Strength, Dependent Transfe rs, Impaired Bed Mobility, Impaired Funct Balance, Impaired I ADL's, Impaired Self-Care Skills OT Treatment, Training and Edu: Yes Plan of Care: ADL Retraining, Functional Mobility, UE Funct Exercise/Act Treatment Duration: August 25, 2019 Frequency: At least 5 of 7 days/Wk (IRF) Estimated Hrs Per Day: 1.[address] IPOC Speech Therapy Treatment Plan: Discontinue ST Treatment Duration: Aug 11, 2019 Frequency: 1 time per week Estimated Hrs Per Day: .25 hour per day Mushroom Packer/Case Mgmt Mushroom Packer/Case Managemen: Discharge Planning Dietitian/Financial Aid Director Dietitian/Financial Aid Director to monitor nutritional status and make changes and/or recommendations as needed and work with speech pathology on dietary upgrades as the occur. Physician IPOC Medical Issues being managed closely and that require the 24 hour availability of a physician: POTS disease managed my multiple specialists requires close BP monitoring and remains major fall risk Medical Issues: Bowel/Bladder Function, DVT Prophylaxis, Falls Precautions, Fluid/Electrolyte/Nutrition Balance, Infection Protection, Pain Management Brief Synthesis of Preadmission Screen, Post-Admission Evaluation, and Therapy Evaluations: PT OT will help patient regain ADL's and stamina and energy conservation in order to be able to return home Medical Prognosis: Good Anticipated Length of Stay: 7 days MALIKA VÁZQUEZ DO Aug 12, 2019 11:49
--- NOTE | 2019-08-12 14:14 | Physical Therapy Daily Note ---
PT Daily Note-Current Subjective Pt agreeable, rates pain 7/10 in low back. Mental Status Patient Orientation: Person Transfers SCALE: Activities may be completed with or without assistive devices. 1-Mokzjdtiqy-ofdwgmt completes the activity by him/herself with no assistance from a helper. 5-Set-up or Clean-up Assistance-helper sets up or cleans up; patient completes activity. [place] assists only prior to or following the activity. 4-Supervision or Touching Assistance-helper provides verbal cues and/or touching/steadying and/or contact guard assistance as patient completes activity. Assistance may be provided throughout the activity or intermittently. 3-Partial/Moderate Assistance-helper does LESS THAN HALF the effort. [place] lifts, holds or supports trunk or limbs, but provides less than half the effort. 2-Substantial/Maximal Assistance-helper does MORE THAN HALF the effort. [place] lifts or holds trunk or limbs and provides more than half the effort. 8-Wfohrdonu-txcfle does ALL the effort. Patient does none of the effort to complete the activity. Or, the assistance of 2 or more helpers is required for the patient to complete the activity. If activity was not attempted, code reason: 7-Patient Refused. 9-Not Applicable-not attempted and the patient did not perform the activity before the current illness, exacerbation or injury. 10-Not Attempted due to Environmental Limitations-(lack of equipment, weather restraints, etc.). 88-Not Attempted due to Medical Conditions or Safety Concerns. Wheelchair Training Does the Pt Use a Wheelchair?: Yes Type of Wheelchair: Manual Practiced w/c mobility 2 x 120ft Exercises Supine Ex: Ankle pumps, Quad Set, Glut sets, Heel Slides, Short Arc Quads, Hip abd/add Supine Reps: 20 Seated Therapy Exercises: Ankle pumps, Long arc quads, Hip flexion, Hamstring Curls, Hip abd/add Seated Reps: 20 Treatments BP in supine: 152/84 with pr 87bpm, sittin/51 pr 91bpm, sitting after 3min 158/80 85bpm, BP in supine 156 79. Pt seen for ther ex in supine, sitting, w/c mobility and back to bed with call light and all needs met. Assessment Current Status: Fair Progress Pt able to complete supine and sitting ther ex. Pt gait training is limited by orthostatic hypotension. Pt back to bed with call light and all needs met. PT Short Term Goals Short Term Goals Time Frame: Aug 18, 2019 Roll Left & Right: 6 Sit to lyin Lying to sitting on side of be: 6 Sit to stand: 4 Chair/gqk-jk-tuxzh transfer: 4 Walk 10 feet: 4 Walk 50 feet with two turns: 4 PT Linoleum Printer Goals Linoleum Printer Goals PT Linoleum Printer Goals Time Frame: September 01, 2019 Roll Left & Right (QC): 6 Sit to Lying (QC): 6 Lying-Sitting on Side/Bed(QC): 6 Sit to Stand (QC): 6 Chair/Wzw-oq-Aczsp Xfer(QC): 6 Toilet Transfer (QC): 6 Car Transfer (QC): 6 Does the Patient Walk: No and Walking Goal IS indicated Walk 10 feet (QC): 6 Walk 50ft with 2 Turns (QC): 6 Walk 150 ft (QC): 6 Walking 10ft on Uneven Surface: 6 1 Step (curb) (QC): 4 4 Steps (QC): 4 12 Steps (QC): 88 Picking up an Object (QC): 88 Wheel 50 feet with 2 turns (QC: 9 Wheel 150 feet: 9 PT Plan Treatment/Plan Treatment Plan: Continue Plan of Care Treatment Plan: Bed Mobility, Education, Functional Activity [place], Functional Strength, Group Therapy, Gait, Safety, Therapeutic Exercise, Transfers Treatment Duration: September 01, 2019 Frequency: At least 5 of 7 days/Wk (IRF) Estimated Hrs Per Day: 1.5 hours per day Patient and/or Family Agrees t: Yes Time/GCodes Time In: 115 Time Out: 200 Total Billed Treatment Time: 45 Total Billed Treatment 1, ther ex 30', w/c mobility 15' JONATHAN GUIDRY CPTA Aug 12, 2019 14:14
[2019-08-12 17:10] VITALS: BP 132/77
[2019-08-12] MEDS: BISACODYL 10 MG SUPP (DULCOLAX) PR PRN (17:28)
[2019-08-12] MEDS: ENOXAPARIN 40 MG/0.4 ML (LOVENOX) SYR SC SCH (17:55)
[2019-08-13 05:10] VITALS: BP 113/70
[2019-08-13] MEDS: metFORMIN 500 MG (GLUCOPHAGE) TAB PO SCH ×2 (06:22→17:06)
[2019-08-13] MEDS: glipiZIDE 5 MG (GLUCOTROL) TAB PO SCH (06:23)
[2019-08-13] MEDS: LIPASE/AMYLASE/PROTEASE (PANCRELIPASE) 5,000 UNITS CAP PO SCH ×4 (06:23→21:00)
[2019-08-13] MEDS: FLUDROCORTISONE 0.1 MG (FLORINEF) TAB PO SCH (08:38)
[2019-08-13] MEDS: DOCUSATE SODIUM 100 MG (COLACE) CAP PO SCH ×2 (08:38→22:37)
[2019-08-13] MEDS: MAGNESIUM OXIDE (MAG-OX)400 MG TAB PO SCH ×2 (08:38→18:27)
[2019-08-13] MEDS: GABAPENTIN 100 MG (NEURONTIN) CAP PO SCH ×3 (08:38→21:00)
[2019-08-13] MEDS: KCL 10 MEQ TAB (MICRO K) PO SCH ×3 (08:38→18:27)
[2019-08-13] MEDS: MIDODRINE 10 MG (PROAMATINE) TAB PO SCH ×3 (08:39→21:00)
[2019-08-13] MEDS: DULoxetine 30 MG (CYMBALTA) CAP PO SCH (08:39)
[2019-08-13] MEDS: COLESTIPOL 1 GM (COLESTID) TAB PO SCH ×2 (08:40→21:00)
[2019-08-13] MEDS: SENNA W/DOCUSATE (SENOKOT S) TABLET PO SCH ×2 (08:40→22:37)
[2019-08-13] MEDS: FAMOTIDINE 20 MG (PEPCID) TABLET PO SCH (08:40)
[2019-08-13] MEDS: FLUTICASONE NASAL SPRAY (FLONASE) 16 GM BTL NS SCH (08:41)
[2019-08-13] MEDS: polyethylene glycoL POWDER 17 GM (MIRALAX) PACK PO SCH ×2 (08:41→22:37)
[2019-08-13] MEDS: NORTHERA PO SCH ×3 (08:43→18:28)
--- NOTE | 2019-08-13 10:00 | Occupational Ther Daily Note ---
OT Current Status-Daily Note Subjective Pt sitting in chair, agrees to therapy. Pt reports "a little pain" in back, but does not rate. ADL-Treatment Pt sitting in chair. At beginning of session BP was 114/74 in seated position. Pt completed sponge bath while seated in chair. Doff night gown without assist. Pt bathed upper body with set up. Pt able to wash bilateral upper legs and remedios area with SBA. Doff socks with SBA. Pt washed lower legs with SBA. Dons socks with SBA. Sit to stand with min assist. Pt required assist to thoroughly wash buttocks. Don pullover shirt with SBA. Pt able to thread bilateral LE into underwear and pants. Sit to stand with min assist. Pt required assist to complete pant hike. Fatigues quickly with standing task. BP was 105/60 after returning to seated position. Pt brushed hair with set up. Pt completed denture care with set up. Pt requires increased time for ADL tasks, takes frequent rest breaks. Pt sitting in chair with needs met after session. Therapy Code Descriptions/Definitions Functional [place] Measure: 0=Not Assessed/NA 4=Minimal Assistance 1=Total Assistance 5=Supervision or Setup 2=Maximal Assistance 6=Modified [place] 3=Moderate Assistance 7=Complete IndependenceSCALE: Activities may be completed with or without assistive devices. 9-Omcptbcsvk-npjwejw completes the activity by him/herself with no assistance from a helper. 5-Set-up or Clean-up Assistance-helper sets up or cleans up; patient completes activity. [employer] assists only prior to or following the activity. 4-Supervision or Touching Assistance-helper provides verbal cues and/or touching/steadying and/or contact guard assistance as patient completes activity. Assistance may be provided throughout the activity or intermittently. 3-Partial/Moderate Assistance-helper does LESS THAN HALF the effort. [employer] lifts, holds or supports trunk or limbs, but provides less than half the effort. 2-Substantial/Maximal Assistance-helper does MORE THAN HALF the effort. [employer] lifts or holds trunk or limbs and provides more than half the effort. 9-Yekkpzvtu-fkysfa does ALL the effort. Patient does none of the effort to complete the activity. Or, the assistance of 2 or more helpers is required for the patient to complete the activity. If activity was not attempted, code reason: 7-Patient Refused. 9-Not Applicable-not attempted and the patient did not perform the activity before the current illness, exacerbation or injury. 10-Not Attempted due to Environmental Limitations-(lack of equipment, weather restraints, etc.). 88-Not Attempted due to Medical Conditions or Safety Concerns. Oral Hygiene (QC): 5 Shower/Bathe Self (QC): 3 Upper Body Dressing (QC): 4 Lower Body Dressing (QC): 3 On/Off Footwear: 4 OT Short Term Goals Short Term Goals Time Frame: Aug 18, 2019 Upper body dressin Lower body dressin Putting on/taking off footwear: 4 OT Custodial Goals Custodial Goals Time Frame: August 25, 2019 Eating (QC): 6 Oral Hygiene (QC): 6 Toileting Hygiene (QC): 6 Shower/Bathe Self (QC): 4 Upper Body Dressing (QC): 6 Lower Body Dressing (QC): 6 On/Off Footwear (QC): 6 Additional Goals: 1-Demonstrate ADL Tasks, 2-Verbalize Understanding, 3- ImproveStrength/[place] 1=Demonstrate adherence to instructed precautions during ADL tasks. 2=Patient will verbalize/demonstrate understanding of assistive devices/modifications for ADL. 3=Patient will improve strength/tolerance for activity to enable patient to perform ADL's. OT Education/Plan Discharge Recommendations Plan/Recommendations: Continue POC Treatment Plan/Plan of Care Patient would benefit from OT for education, treatment and training to promote independence in ADL's, mobility, safety and/or upper extremity function for ADL's. Plan of Care: ADL Retraining, Functional Mobility, UE Funct Exercise/Act Treatment Duration: August 25, 2019 Frequency: At least 5 of 7 days/Wk (IRF) Estimated Hrs Per Day: 1.5 hours per day Agreement: Yes Rehab Potential: Guarded Time/GCodes Start Time: 08:45 Stop Time: 09:45 Total Time Billed (hr/min): 60 Billed Treatment Time 1 visit, ADLx4(60minutes) ADALGISA LIANG OT Aug 13, 2019 10:00
--- NOTE | 2019-08-13 11:24 | Physical Therapy Daily Note ---
PT Daily Note-Current Subjective Pt sitting in recliner upon arrival. When asked, pt states feels as though she could be straight cath. Pt agreed to PT. Pain Numeric Pain Scale: 6 Location: Lower Location Body Site: Back Pain Description: Ache, Chronic Mental Status Patient Orientation: Person, Place, Situation Transfers SCALE: Activities may be completed with or without assistive devices. 8-Pzusrngvpr-osqidpd completes the activity by him/herself with no assistance from a helper. 5-Set-up or Clean-up Assistance-helper sets up or cleans up; patient completes activity. [place] assists only prior to or following the activity. 4-Supervision or Touching Assistance-helper provides verbal cues and/or touching/steadying and/or contact guard assistance as patient completes activity. Assistance may be provided throughout the activity or intermittently. 3-Partial/Moderate Assistance-helper does LESS THAN HALF the effort. [place] lifts, holds or supports trunk or limbs, but provides less than half the effort. 2-Substantial/Maximal Assistance-helper does MORE THAN HALF the effort. [place] lifts or holds trunk or limbs and provides more than half the effort. 9-Ltylxlnsb-gvaled does ALL the effort. Patient does none of the effort to complete the activity. Or, the assistance of 2 or more helpers is required for the patient to complete the activity. If activity was not attempted, code reason: 7-Patient Refused. 9-Not Applicable-not attempted and the patient did not perform the activity before the current illness, exacerbation or injury. 10-Not Attempted due to Environmental Limitations-(lack of equipment, weather restraints, etc.). 88-Not Attempted due to Medical Conditions or Safety Concerns. Roll Left & Right (QC): 5 Sit to Lying (QC): 4 Lying to Sitting/Side of Bed(Q: 4 Sit to Stand (QC): 4 Chair/Ciu-qs-Vkply Xfer(QC): 4 Weight Bearing Right Lower Extremity: Right Full Weight Bearing Left Lower Extremity: Left Full Weight Bearing Wheelchair Training Does the Pt Use a Wheelchair?: Yes Wheel 50 ft with 2 turns (QC): 2 Wheel 150 ft (QC): 2 Type of Wheelchair: Manual Pt very fatigued and reports needing assistance to propel [facility]. Exercises Seated Therapy Exercises: Ankle pumps, Long arc quads, Hip flexion, Kicking activity, Glut set Seated Reps: 15 NuStep Minutes: 7 NuStep Workload: 3 Treatments Pt transfers from recliner to EOB to Supine for straight cath. Nursing assists with cath. Pt is able to roll side to side to don/doff undergarment and pants. Pt transfers to [facility] and is propelled to Therapy Gym. Pt completes Seated Ex then uses NuStep for 7m at [facility] 3. Pt takes RB then is propelled to room. Pt transfers back to Supine in bed to rest. Pt has all needs met, call light in hand. Assessment Current Status: Fair Progress Pt demonstrates fatigue & drowsiness. Pt has difficulty with BP, monitored during Rx. PT Short Term Goals Short Term Goals Time Frame: Aug 18, 2019 Roll Left & Right: 6 Sit to lyin Lying to sitting on side of be: 6 Sit to stand: 4 Chair/nzq-jb-almrr transfer: 4 Walk 10 feet: 4 Walk 50 feet with two turns: 4 PT Prison Goals Prison Goals PT Professional Nursing Tutor Goals Time Frame: September 01, 2019 Roll Left & Right (QC): 6 Sit to Lying (QC): 6 Lying-Sitting on Side/Bed(QC): 6 Sit to Stand (QC): 6 Chair/Poj-zb-Kxyjv Xfer(QC): 6 Toilet Transfer (QC): 6 Car Transfer (QC): 6 Does the Patient Walk: No and Walking Goal IS indicated Walk 10 feet (QC): 6 Walk 50ft with 2 Turns (QC): 6 Walk 150 ft (QC): 6 Walking 10ft on Uneven Surface: 6 1 Step (curb) (QC): 4 4 Steps (QC): 4 12 Steps (QC): 88 Picking up an Object (QC): 88 Wheel 50 feet with 2 turns (QC: 9 Wheel 150 feet: 9 PT Plan Problem List Problem List: Activity Tolerance, Functional Strength, Safety, Balance, Gait, Transfer Treatment/Plan Treatment Plan: Continue Plan of Care Treatment Plan: Bed Mobility, Education, Functional Activity [place], Functional Strength, Group Therapy, Gait, Safety, Therapeutic Exercise, Transfers Treatment Duration: September 01, 2019 Frequency: At least 5 of 7 days/Wk (IRF) Estimated Hrs Per Day: 1.5 hours per day Patient and/or Family Agrees t: Yes Safety Risks/Education Patient Education: Transfer Techniques, Correct Positioning, W/C Management, Safety Issues Teaching Recipient: Patient Teaching Methods: Discussion Response to Teaching: Verbalize Understanding Time/GCodes Time In: 945 Time Out: 1045 Total Billed Treatment Time: 60 Total Billed Treatment 1, WC (10m), FA (20m), EX x2 (30m) MUMTAZ CAMACHO SENIOR UI SOFTWARE ENGINEER Aug 13, 2019 11:24
--- NOTE | 2019-08-13 11:27 | PM&R Progress Note ---
Subjective HPI/CC On Admission Date Seen by Provider: Aug 13, 2019 Time Seen by Provider: 12:00 Subjective/Events-last exam Patient has orthostasis preventing walking as much as she would like Checked BP trends No pain reported Wants to go home soon BM large evacuation successful after multiple meds Team meeting discussed POTS in-depth Reviewed therapy notes Checked meds and labs Conferred with local driver of Systems General: Fatigue Objective Exam Vital Signs Vital Signs Date Time Temp Pulse Resp B/P (MAP) Pulse Ox O2 Delivery O2 Flow Rate FiO2 08/13/19 17:27 36.2 77 18 143/79 (100) 96 Room Air Capillary Refill : Less Than 3 Seconds General Appearance: No Apparent Distress, WD/WN, Chronically ill, Thin, Other (frail) HEENT: PERRL/EOMI, Normal ENT Inspection, Pharynx Normal Neck: Full Range of Motion, Normal Inspection, Non Tender, Supple, Carotid Bruit Respiratory: Chest Non Tender, Lungs Clear, Normal Breath Sounds, No Accessory Muscle Use, No Respiratory Distress Cardiovascular: Regular Rate, Rhythm, No Edema, No Gallop, No JVD, No Murmur, Normal Peripheral Pulses Gastrointestinal: Normal Bowel Sounds, No Organomegaly, No Pulsatile Mass, Non Tender, Soft Back: Normal Inspection, No CVA Tenderness, No Vertebral Tenderness Extremity: Normal Capillary Refill, Normal Inspection, Normal Range of Motion, Non Tender, No Calf Tenderness, No Pedal Edema Neurologic/Psychiatric: Alert, Oriented x3, No Motor/Sensory Deficits (legs 4/5 strength), Normal Mood/Affect Skin: Normal Color, Warm/Dry Lymphatic: No Adenopathy Results/Procedures Lab Patient resulted labs reviewed. FIM Transfers Therapy Code Descriptions/Definitions Functional [place] Measure: 0=Not Assessed/NA 4=Minimal Assistance 1=Total Assistance 5=Supervision or Setup 2=Maximal Assistance 6=Modified [place] 3=Moderate Assistance 7=Complete IndependenceSCALE: Activities may be completed with or without assistive devices. 8-Pmsvlhittl-yzbolmy completes the activity by him/herself with no assistance from a helper. 5-Set-up or Clean-up Assistance-helper sets up or cleans up; patient completes activity. [place] assists only prior to or following the activity. 4-Supervision or Touching Assistance-helper provides verbal cues and/or touching/steadying and/or contact guard assistance as patient completes activity. Assistance may be provided throughout the activity or intermittently. 3-Partial/Moderate Assistance-helper does LESS THAN HALF the effort. [place] lifts, holds or supports trunk or limbs, but provides less than half the effort. 2-Substantial/Maximal Assistance-helper does MORE THAN HALF the effort. [place] lifts or holds trunk or limbs and provides more than half the effort. 2-Mcscfxwct-uxcmgz does ALL the effort. Patient does none of the effort to complete the activity. Or, the assistance of 2 or more helpers is required for the patient to complete the activity. If activity was not attempted, code reason: 7-Patient Refused. 9-Not Applicable-not attempted and the patient did not perform the activity before the current illness, exacerbation or injury. 10-Not Attempted due to Environmental Limitations-(lack of equipment, weather restraints, etc.). 88-Not Attempted due to Medical Conditions or Safety Concerns. Roll Left to Right (QC): 6 Sit to Lying (QC): 3 Sit to Stand (QC): 4 Chair/Swm-tj-Dztww Xfer(QC): 4 Car Transfer (QC): 4 Gait Training Does the Patient Walk?: Yes Walk 10 feet (QC): 88 Walk 50 ft with 2 Turns(QC): 88 Walk 150 ft (QC): 88 Walking 10ft/uneven surface-QC: 88 Wheelchair Training Does the Pt Use a Wheelchair?: Yes Distance: 150' Wheel 50 ft with 2 turns (QC): 4 Wheel 150 ft (QC): 4 Type of Wheelchair: Manual Stair Training 1 Step (curb) (QC): 88 4 Steps (QC): 88 12 Steps (QC): 88 Balance Picking up an Object (QC): 88 ADL-Treatment Eating (QC): 6 Oral Hygiene (QC): 5 Bathing Location: L Arm, R Arm, L Upper Leg, R Upper Leg, L Lower Leg (including foot), R Lower Leg (including foot), Chest, Abdomen, Perineal Area Shower/Bathe Self (QC): 3 Upper Body Dressing (QC): 4 Lower Body Dressing (QC): 3 On/Off Footwear (QC): 4 Toileting Hygiene (QC): 3 (Pt refuses shower on this date and does not complete BM. Based on pt ability for pant donning/ safety during stance, pt would require CGA throughout stance and min A for thoroughness) Toilet Transfer (QC): 3 (min A sit to stand from BSC) Assessment/Plan Assessment and Plan Assess & Plan/Chief Complaint Assessment: (1A) Debility with major fall risk requiring IRF (1) s/p Sepsis (2) Acute UTI completing PO abx now (3) Abdominal pain (4) Hypokalemia (5) Neurogenic bladder-self caths maintained [facility]rology at [facility] regular basis (6) Headache (7) Diabetes mellitus (8) Unsteady gait with POTS (Postoral orthostasis tachycardia syndrome) (9) Physical debility (10) DVT prophylaxis (11) Low back pain chronic w/h/o lumbar spine surgery (12) DM (13) Vit B12 def Plan: Maintain on home meds Permissive hypertension due to severity of her orthostasis when standing up Pain control Bowel regimen to maintain Intensive therapies Fall risk Straight in/out caths prn Cefdinir completing (1) Physical debility Status: Acute (2) Unsteady gait Status: Acute (3) POTS (postural orthostatic tachycardia syndrome) Status: Chronic (4) Acute UTI Status: Acute (5) History of UTI Status: Chronic (6) Weakness Status: Chronic (7) Hypokalemia Status: Acute (8) Diabetes mellitus Status: Chronic (9) Neurogenic bladder Status: Chronic (10) DVT prophylaxis Status: Acute (11) Headache Status: Resolved Resolution Date/Time: 08/07/19 @ 12:08 (12) Low back pain (13) GERD (gastroesophageal reflux disease) Status: Chronic (14) Neuropathy MALIKA VÁZQUEZ DO Aug 13, 2019 11:27
--- NOTE | 2019-08-13 13:45 | Physical Therapy Daily Note ---
PT Daily Note-Current Subjective Pt laying Supine in bed visiting on phone upon arrival. Pt agrees to Ex but reports still very drowsy. Pain Numeric Pain Scale: 6 Location: Lower Location Body Site: Back Pain Description: Ache, Chronic Mental Status Patient Orientation: Person, Place, Situation Transfers SCALE: Activities may be completed with or without assistive devices. 8-Cxdplrmxcn-iztcchu completes the activity by him/herself with no assistance from a helper. 5-Set-up or Clean-up Assistance-helper sets up or cleans up; patient completes activity. [place] assists only prior to or following the activity. 4-Supervision or Touching Assistance-helper provides verbal cues and/or touching/steadying and/or contact guard assistance as patient completes activity. Assistance may be provided throughout the activity or intermittently. 3-Partial/Moderate Assistance-helper does LESS THAN HALF the effort. [place] lifts, holds or supports trunk or limbs, but provides less than half the effort. 2-Substantial/Maximal Assistance-helper does MORE THAN HALF the effort. [place] lifts or holds trunk or limbs and provides more than half the effort. 6-Hqlnqymls-tdyfsb does ALL the effort. Patient does none of the effort to complete the activity. Or, the assistance of 2 or more helpers is required for the patient to complete the activity. If activity was not attempted, code reason: 7-Patient Refused. 9-Not Applicable-not attempted and the patient did not perform the activity before the current illness, exacerbation or injury. 10-Not Attempted due to Environmental Limitations-(lack of equipment, weather restraints, etc.). 88-Not Attempted due to Medical Conditions or Safety Concerns. Weight Bearing Right Lower Extremity: Right Full Weight Bearing Left Lower Extremity: Left Full Weight Bearing Exercises Supine Ex: Ankle pumps, Quad Set, Glut sets, Heel Slides, Straight leg raise, Hip abd/add Supine Reps: 15 Treatments Pt reviews written HEP for Seated & Supine Ex. Pt resting after Rx, all needs met, call light in hand. Assessment Current Status: Fair Progress Pt self limits at times citing fatigue. PT Short Term Goals Short Term Goals Time Frame: Aug 18, 2019 Roll Left & Right: 6 Sit to lyin Lying to sitting on side of be: 6 Sit to stand: 4 Chair/nkj-fy-hwduh transfer: 4 Walk 10 feet: 4 Walk 50 feet with two turns: 4 PT Nursing Home Goals Supervisor Cloth Winding Goals PT Nursing Home Goals Time Frame: September 01, 2019 Roll Left & Right (QC): 6 Sit to Lying (QC): 6 Lying-Sitting on Side/Bed(QC): 6 Sit to Stand (QC): 6 Chair/Gob-fg-Rxhjx Xfer(QC): 6 Toilet Transfer (QC): 6 Car Transfer (QC): 6 Does the Patient Walk: No and Walking Goal IS indicated Walk 10 feet (QC): 6 Walk 50ft with 2 Turns (QC): 6 Walk 150 ft (QC): 6 Walking 10ft on Uneven Surface: 6 1 Step (curb) (QC): 4 4 Steps (QC): 4 12 Steps (QC): 88 Picking up an Object (QC): 88 Wheel 50 feet with 2 turns (QC: 9 Wheel 150 feet: 9 PT Plan Problem List Problem List: Activity Tolerance, Functional Strength, Balance, Gait, Transfer Treatment/Plan Treatment Plan: Continue Plan of Care Treatment Plan: Bed Mobility, Education, Functional Activity [place], Functional Strength, Group Therapy, Gait, Safety, Therapeutic Exercise, Transfers Treatment Duration: September 01, 2019 Frequency: At least 5 of 7 days/Wk (IRF) Estimated Hrs Per Day: 1.5 hours per day Patient and/or Family Agrees t: Yes Safety Risks/Education Patient Education: Correct Positioning, Safety Issues Teaching Recipient: Patient Teaching Methods: Discussion Response to Teaching: Verbalize Understanding Time/GCodes Time In: 1300 Time Out: 1330 Total Billed Treatment Time: 30 Total Billed Treatment 1, EX x2 (30m) MUMTAZ CAMACHO DRAMA THERAPIST Aug 13, 2019 13:44
--- NOTE | 2019-08-13 14:11 | Occupational Ther Daily Note ---
OT Current Status-Daily Note Subjective Pt in bed, agrees to treatment. ADL-Treatment Therapy Code Descriptions/Definitions Functional [place] Measure: 0=Not Assessed/NA 4=Minimal Assistance 1=Total Assistance 5=Supervision or Setup 2=Maximal Assistance 6=Modified [place] 3=Moderate Assistance 7=Complete IndependenceSCALE: Activities may be completed with or without assistive devices. 7-Nxphcqwyjn-hecowyh completes the activity by him/herself with no assistance from a helper. 5-Set-up or Clean-up Assistance-helper sets up or cleans up; patient completes activity. [place] assists only prior to or following the activity. 4-Supervision or Touching Assistance-helper provides verbal cues and/or touching/steadying and/or contact guard assistance as patient completes activity. Assistance may be provided throughout the activity or intermittently. 3-Partial/Moderate Assistance-helper does LESS THAN HALF the effort. [place] lifts, holds or supports trunk or limbs, but provides less than half the effort. 2-Substantial/Maximal Assistance-helper does MORE THAN HALF the effort. [place] lifts or holds trunk or limbs and provides more than half the effort. 8-Pjhvuuiyo-vznmcn does ALL the effort. Patient does none of the effort to complete the activity. Or, the assistance of 2 or more helpers is required for the patient to complete the activity. If activity was not attempted, code reason: 7-Patient Refused. 9-Not Applicable-not attempted and the patient did not perform the activity bef ore the current illness, exacerbation or injury. 10-Not Attempted due to Environmental Limitations-(lack of equipment, weather r estraints, etc.). 88-Not Attempted due to Medical Conditions or Safety Concerns. Other Treatment Pt completed bilateral UE exercises to increase strength needed for ADLs and transfers. Pt performed shoulder flexion, abduction, biceps curls, and triceps extension exercises x10 reps with mild resistance (yellow) theraband. Rest breaks taken between exercises. Pt requires cues for proper exercise technique. Bilateral hand fondant puff maker exercises x20 reps with moderate resistance therapy foam. Graded clothespins task using bilateral hands to increase fondant puff maker/pinch strength. Pt has difficulty with higher resistance clothespins. Increased time for task. Pt resting in bed with needs met and RN present after session. OT Short Term Goals Short Term Goals Time Frame: Aug 18, 2019 Upper body dressin Lower body dressin Putting on/taking off footwear: 4 OT Locomotive Crane Operator Helper Goals Senior Living Goals Time Frame: August 25, 2019 Eating (QC): 6 Oral Hygiene (QC): 6 Toileting Hygiene (QC): 6 Shower/Bathe Self (QC): 4 Upper Body Dressing (QC): 6 Lower Body Dressing (QC): 6 On/Off Footwear (QC): 6 Additional Goals: 1-Demonstrate ADL Tasks, 2-Verbalize Understanding, 3- ImproveStrength/[place] 1=Demonstrate adherence to instructed precautions during ADL tasks. 2=Patient will verbalize/demonstrate understanding of assistive device s/modifications for ADL. 3=Patient will improve strength/tolerance for activity to enable patient to perform ADL's. OT Education/Plan Discharge Recommendations Plan/Recommendations: Continue POC Treatment Plan/Plan of Care Patient would benefit from OT for education, treatment and training to promote independence in ADL's, mobility, safety and/or upper extremity function for ADL's. Plan of Care: ADL Retraining, Functional Mobility, UE Funct Exercise/Act Treatment Duration: August 25, 2019 Frequency: At least 5 of 7 days/Wk (IRF) Estimated Hrs Per Day: 1.5 hours per day Agreement: Yes Rehab Potential: Guarded Time/GCodes Start Time: 13:40 Stop Time: 14:10 Total Time Billed (hr/min): 30 Billed Treatment Time 1 visit, EXx2(30minutes) ADALGISA LIANG OT Aug 13, 2019 14:11
[2019-08-13 17:27] VITALS: BP 143/79
[2019-08-13] MEDS: ENOXAPARIN 40 MG/0.4 ML (LOVENOX) SYR SC SCH (18:29)
[2019-08-14 05:48] VITALS: BP 135/78
[2019-08-14] MEDS: metFORMIN 500 MG (GLUCOPHAGE) TAB PO SCH (06:48)
[2019-08-14] MEDS: glipiZIDE 5 MG (GLUCOTROL) TAB PO SCH (06:48)
[2019-08-14] MEDS: LIPASE/AMYLASE/PROTEASE (PANCRELIPASE) 5,000 UNITS CAP PO SCH ×4 (06:51→20:04)
[2019-08-14] MEDS: FLUTICASONE NASAL SPRAY (FLONASE) 16 GM BTL NS SCH (08:19)
[2019-08-14] MEDS: MAGNESIUM OXIDE (MAG-OX)400 MG TAB PO SCH ×2 (08:22→17:45)
[2019-08-14] MEDS: DULoxetine 30 MG (CYMBALTA) CAP PO SCH (08:22)
[2019-08-14] MEDS: MIDODRINE 10 MG (PROAMATINE) TAB PO SCH ×3 (08:22→20:04)
[2019-08-14] MEDS: KCL 10 MEQ TAB (MICRO K) PO SCH ×3 (08:22→17:45)
[2019-08-14] MEDS: GABAPENTIN 100 MG (NEURONTIN) CAP PO SCH ×3 (08:23→20:04)
[2019-08-14] MEDS: FLUDROCORTISONE 0.1 MG (FLORINEF) TAB PO SCH (08:23)
[2019-08-14] MEDS: FAMOTIDINE 20 MG (PEPCID) TABLET PO SCH (08:23)
[2019-08-14] MEDS: SENNA W/DOCUSATE (SENOKOT S) TABLET PO SCH ×2 (08:23→20:04)
[2019-08-14] MEDS: DOCUSATE SODIUM 100 MG (COLACE) CAP PO SCH ×2 (08:23→20:04)
[2019-08-14] MEDS: polyethylene glycoL POWDER 17 GM (MIRALAX) PACK PO SCH ×2 (08:24→20:05)
[2019-08-14] MEDS: COLESTIPOL 1 GM (COLESTID) TAB PO SCH ×2 (08:24→20:27)
[2019-08-14] MEDS: NORTHERA PO SCH ×3 (08:26→17:47)
--- NOTE | 2019-08-14 10:06 | PM&R Progress Note ---
Subjective HPI/CC On Admission Date Seen by Provider: Aug 14, 2019 Time Seen by Provider: 11:00 Subjective/Events-last exam Patient has orthostasis preventing walking as much as she would like and stays in wheelchair for safety Checked BP trends and noted labile status No pain reported Wants to go home soon and she is trying to get stronger in order to do that BM large evacuation successful after multiple meds 3 days ago will maintain the meds Team meeting discussed POTS in-depth on Sun Reviewed therapy notes Checked meds and labs Conferred with smash fixer of Systems General: Fatigue Neurological: Weakness Objective Exam Vital Signs Vital Signs Date Time Temp Pulse Resp B/P (MAP) Pulse Ox O2 Delivery O2 Flow Rate FiO2 08/15/19 04:09 36.7 82 18 110/83 (92) 94 Room Air Capillary Refill : Less Than 3 Seconds General Appearance: No Apparent Distress, WD/WN, Chronically ill, Thin, Other (frail) HEENT: PERRL/EOMI, Normal ENT Inspection, Pharynx Normal Neck: Full Range of Motion, Normal Inspection, Non Tender, Supple, Carotid Bruit Respiratory: Chest Non Tender, Lungs Clear, Normal Breath Sounds, No Accessory Muscle Use, No Respiratory Distress Cardiovascular: Regular Rate, Rhythm, No Edema, No Gallop, No JVD, No Murmur, Normal Peripheral Pulses Gastrointestinal: Normal Bowel Sounds, No Organomegaly, No Pulsatile Mass, Non Tender, Soft Back: Normal Inspection, No CVA Tenderness, No Vertebral Tenderness Extremity: Normal Capillary Refill, Normal Inspection, Normal Range of Motion, Non Tender, No Calf Tenderness, No Pedal Edema Neurologic/Psychiatric: Alert, Oriented x3, No Motor/Sensory Deficits (legs 4/5 strength), Normal Mood/Affect Skin: Normal Color, Warm/Dry Lymphatic: No Adenopathy Results/Procedures Lab Patient resulted labs reviewed. FIM Transfers Therapy Code Descriptions/Definitions Functional [place] Measure: 0=Not Assessed/NA 4=Minimal Assistance 1=Total Assistance 5=Supervision or Setup 2=Maximal Assistance 6=Modified [place] 3=Moderate Assistance 7=Complete IndependenceSCALE: Activities may be completed with or without assistive devices. 0-Vgomqfkekn-cbwazlb completes the activity by him/herself with no assistance from a helper. 5-Set-up or Clean-up Assistance-helper sets up or cleans up; patient completes activity. [place] assists only prior to or following the activity. 4-Supervision or Touching Assistance-helper provides verbal cues and/or touching/steadying and/or contact guard assistance as patient completes activity. Assistance may be provided throughout the activity or intermittently. 3-Partial/Moderate Assistance-helper does LESS THAN HALF the effort. [place] lifts, holds or supports trunk or limbs, but provides less than half the effort. 2-Substantial/Maximal Assistance-helper does MORE THAN HALF the effort. [place] lifts or holds trunk or limbs and provides more than half the effort. 8-Uylprtbup-aildyl does ALL the effort. Patient does none of the effort to complete the activity. Or, the assistance of 2 or more helpers is required for the patient to complete the activity. If activity was not attempted, code reason: 7-Patient Refused. 9-Not Applicable-not attempted and the patient did not perform the activity before the current illness, exacerbation or injury. 10-Not Attempted due to Environmental Limitations-(lack of equipment, weather restraints, etc.). 88-Not Attempted due to Medical Conditions or Safety Concerns. Roll Left to Right (QC): 5 Sit to Lying (QC): 4 Sit to Stand (QC): 4 Chair/Rlu-my-Yivhv Xfer(QC): 4 Car Transfer (QC): 4 Gait Training Does the Patient Walk?: Yes Walk 10 feet (QC): 88 Walk 50 ft with 2 Turns(QC): 88 Walk 150 ft (QC): 88 Walking 10ft/uneven surface-QC: 88 Wheelchair Training Does the Pt Use a Wheelchair?: Yes Distance: 150' Wheel 50 ft with 2 turns (QC): 2 Wheel 150 ft (QC): 2 Type of Wheelchair: Manual Stair Training 1 Step (curb) (QC): 88 4 Steps (QC): 88 12 Steps (QC): 88 Balance Picking up an Object (QC): 88 ADL-Treatment Eating (QC): 6 Oral Hygiene (QC): 5 Bathing Location: L Arm, R Arm, L Upper Leg, R Upper Leg, L Lower Leg (including foot), R Lower Leg (including foot), Chest, Abdomen, Perineal Area Shower/Bathe Self (QC): 3 Upper Body Dressing (QC): 4 Lower Body Dressing (QC): 3 On/Off Footwear (QC): 4 Toileting Hygiene (QC): 3 (Pt refuses shower on this date and does not complete BM. Based on pt ability for pant donning/ safety during stance, pt would require CGA throughout stance and min A for thoroughness) Toilet Transfer (QC): 3 (min A sit to stand from BS) Assessment/Plan Assessment and Plan Assess & Plan/Chief Complaint Assessment: (1A) Debility with major fall risk requiring IRF (1) s/p Sepsis (2) Acute UTI completing PO abx now (3) Abdominal pain (4) Hypokalemia (5) Neurogenic bladder-self caths maintained Urology at [facility] regular basis (6) Headache (7) Diabetes mellitus (8) Unsteady gait with POTS (Postoral orthostasis tachycardia syndrome) (9) Physical debility (10) DVT prophylaxis (11) Low back pain chronic w/h/o lumbar spine surgery (12) DM (13) Vit B12 def Plan: Maintain on home meds Permissive hypertension due to severity of her orthostasis when standing up Pain control Bowel regimen to maintain Intensive therapies Fall risk Straight in/out caths prn Cefdinir completed (1) Physical debility Status: Acute (2) Unsteady gait Status: Acute (3) POTS (postural orthostatic tachycardia syndrome) Status: Chronic (4) Acute UTI Status: Acute (5) History of UTI Status: Chronic (6) Weakness Status: Chronic (7) Hypokalemia Status: Acute (8) Diabetes mellitus Status: Chronic (9) Neurogenic bladder Status: Chronic (10) DVT prophylaxis Status: Acute (11) Headache Status: Resolved Resolution Date/Time: 08/07/19 @ 12:08 (12) Low back pain (13) GERD (gastroesophageal reflux disease) Status: Chronic (14) Neuropathy MALIKA VÁZQUEZ DO Aug 14, 2019 10:06
--- NOTE | 2019-08-14 11:00 | NUR ---
BLOOD SUGARS TRENDING LOWER, SPOKE WITH DR. JOHN PAUL SANCHEZ. D/C GLIPIZIDE, HOLD 1700 METFORMIN DOSE ON 08/14/19, RESUME AM DOSE 08/15/19 IF SUGARS ARE WNL.
--- NOTE | 2019-08-14 11:05 | Occupational Ther Daily Note ---
OT Current Status-Daily Note Subjective Pt. reports that she is very tired this date. Appearance Pt. up in chair. Requires encouragement but agrees to participate in therapy. Mental Status/Objective Patient Orientation: Person, Place ADL-Treatment Therapy Code Descriptions/Definitions Functional [place] Measure: 0=Not Assessed/NA 4=Minimal Assistance 1=Total Assistance 5=Supervision or Setup 2=Maximal Assistance 6=Modified [place] 3=Moderate Assistance 7=Complete IndependenceSCALE: Activities may be completed with or without assistive devices. 3-Ieurfrwfib-gattmzg completes the activity by him/herself with no assistance from a helper. 5-Set-up or Clean-up Assistance-helper sets up or cleans up; patient completes activity. [place] assists only prior to or following the activity. 4-Supervision or Touching Assistance-helper provides verbal cues and/or touching/steadying and/or contact guard assistance as patient completes ac tivity. Assistance may be provided throughout the activity or intermittently. 3-Partial/Moderate Assistance-helper does LESS THAN HALF the effort. [place] lifts, holds or supports trunk or limbs, but provides less than half the effort. 2-Substantial/Maximal Assistance-helper does MORE THAN HALF the effort. [place] lifts or holds trunk or limbs and provides more than half the effort. 4-Hjjrjjick-dddvlx does ALL the effort. Patient does none of the effort to complete the activity. Or, the assistance of 2 or more helpers is required for the patient to complete the activity. If activity was not attempted, code reason: 7-Patient Refused. 9-Not Applicable-not attempted and the patient did not perform the activity before the current illness, exacerbation or injury. 10-Not Attempted due to Environmental Limitations-(lack of equipment, weather restraints, etc.). 88-Not Attempted due to Medical Conditions or Safety Concerns. Lower Body Dressing (QC): 3 (Mod assist in stance to don pants over hips.) Toileting Hygiene (QC): 3 (Min assist in stance for balance while pt. cleanses self after toileting.) Toilet Transfer (QC): 3 (Min assist.) Other Treatment Pt. declines showering or sponge bathing, and states that she has clean pajamas on that she put on last night. Pt. requests to use BSC, but OT prompts her to use regular toilet. Pt. stands with min assist, and while ambulating with walker, states that she feels dizzy. OT places BSC near her and she is able to transfer to it. OT takes BP and it is 75/44. Pt. rests and multiple BP continued. 83/53, and then 92/52. Nursing is aware. Pt. transfers to wheelchair with min assist and is encouraged to work on self propulsion to therapy gym. Multiple cues and assist given, as pt. will attempt to propel wheel, but then will stop. BP monitored in gym and continues to be approximately 93/53. Pt. reports that she does have fine motor coordination issues, as evidenced in inability to open package of wipes, or hold brake on wheelchair completely. Pt. participated in fine motor coordination task with small clothespins. This also engaged visual/cognitive components. Pt. is instructed to match the clothespins, to the next corresponding clothespin. Pt. approximately 80% accurate with this. Pt. taken back to room. All needs met in bed. Pt. able to transfer sit-supine with SBA. Education OT Patient Education: Correct positioning, Modified ADL techniques, Progress toward Goal/Update tx plan, Purpose of tx/functional activities, Reviewed precautions, Rehab process, Transfer techniques Teaching Recipient: Patient Teaching Methods: Demonstration, Discussion Response to Teaching: Verbalize Understanding, Return Demonstration OT Short Term Goals Short Term Goals Time Frame: Aug 18, 2019 Upper body dressin Lower body dressin Putting on/taking off footwear: 4 OT Front Counter Clerk Goals Front Counter Clerk Goals Time Frame: August 25, 2019 Eating (QC): 6 Oral Hygiene (QC): 6 Toileting Hygiene (QC): 6 Shower/Bathe Self (QC): 4 Upper Body Dressing (QC): 6 Lower Body Dressing (QC): 6 On/Off Footwear (QC): 6 Additional Goals: 1-Demonstrate ADL Tasks, 2-Verbalize Understanding, 3- ImproveStrength/[place] 1=Demonstrate adherence to instructed precautions during ADL tasks. 2=Patient will verbalize/demonstrate understanding of assistive devices/m odifications for ADL. 3=Patient will improve strength/tolerance for activity to enable patient to perform ADL's. OT Education/Plan Problem List/Assessment Assessment: Decreased Activ Tolerance, Decreased UE Strength, Dependent Transfers, Impaired Bed Mobility, Impaired Coordination, Impaired Funct Balance, Impaired I ADL's, Impaired Self-Care Skills Discharge Recommendations Plan/Recommendations: Continue POC Treatment Plan/Plan of Care Treatment,Training & Education: Yes Patient would benefit from OT for education, treatment and training to promote independence in ADL's, mobility, safety and/or upper extremity function for ADL's. Plan of Care: ADL Retraining, Functional Mobility, Group Exercise/Act as Ind, UE Funct Exercise/Act Treatment Duration: August 25, 2019 Frequency: At least 5 of 7 days/Wk (IRF) Estimated Hrs Per Day: 1.5 hours per day Agreement: Yes Rehab Potential: Guarded Time/GCodes Start Time: 08:30 Stop Time: 09:30 Total Time Billed (hr/min): 60 Billed Treatment Time 1, ADL x 30minutes, FA x 30minutes MARTINA IQBAL OT Aug 14, 2019 11:05
--- NOTE | 2019-08-14 11:58 | NUR ---
CM/SS WEEKLY TEAM CONFERENCE SUMMARY Observed patient this a.m. during therapy session, she was wheelchair training, appearance was debilitated. Met with patient to review Summary, she is in agreement for reassessment next 08/20/19, regarding discharge proposed date. Patient continues to plan to return home with her spouse. She confirmed that she was ambulating at home with 4WW prior to onset of this illness, but states she does have a wheelchair at home if it is needed. Hopeful she can regain strength to ambulate greatest percentage of time. Continue intermittent reviews of EMR, therapy observation, planning for post hospital needs.
--- NOTE | 2019-08-14 12:16 | Physical Therapy Daily Note ---
PT Daily Note-Current Subjective Pt asleep Supine in bed upon arrival. Pt continues to report BP making her feel dizzy, lightheaded & nauseated. Nurse & Therapy monitor and Nursing gives BP med. Pain Numeric Pain Scale: 6 Location: Lower Location Body Site: Back Pain Description: Ache, Chronic Mental Status Patient Orientation: Person, Place, Situation Transfers SCALE: Activities may be completed with or without assistive devices. 5-Atgsvqkokv-mgunuuc completes the activity by him/herself with no assistance from a helper. 5-Set-up or Clean-up Assistance-helper sets up or cleans up; patient completes activity. [place] assists only prior to or following the activity. 4-Supervision or Touching Assistance-helper provides verbal cues and/or touching/steadying and/or contact guard assistance as patient completes activity. Assistance may be provided throughout the activity or intermittently. 3-Partial/Moderate Assistance-helper does LESS THAN HALF the effort. [place] lifts, holds or supports trunk or limbs, but provides less than half the effort. 2-Substantial/Maximal Assistance-helper does MORE THAN HALF the effort. [place] lifts or holds trunk or limbs and provides more than half the effort. 9-Nnofrwxce-xtvuqq does ALL the effort. Patient does none of the effort to complete the activity. Or, the assistance of 2 or more helpers is required for the patient to complete the activity. If activity was not attempted, code reason: 7-Patient Refused. 9-Not Applicable-not attempted and the patient did not perform the activity before the current illness, exacerbation or injury. 10-Not Attempted due to Environmental Limitations-(lack of equipment, weather restraints, etc.). 88-Not Attempted due to Medical Conditions or Safety Concerns. Roll Left & Right (QC): 5 Sit to Lying (QC): 5 Lying to Sitting/Side of Bed(Q: 4 Sit to Stand (QC): 4 Chair/Qhf-gr-Cwnvv Xfer(QC): 4 Weight Bearing Right Lower Extremity: Right Full Weight Bearing Left Lower Extremity: Left Full Weight Bearing Wheelchair Training Does the Pt Use a Wheelchair?: Yes Wheel 50 ft with 2 turns (QC): 5 Wheel 150 ft (QC): 5 Type of Wheelchair: Manual Pt reports fatigue but AGRICULTURE DEPARTMENT CHAIR encourages pt to continue to try propelling WCH. Exercises Supine Ex: Ankle pumps, Quad Set, Heel Slides Supine Reps: 10 Seated Therapy Exercises: Sit to stand, Long arc quads, Hip flexion, Kicking activity Seated Reps: 15 NuStep Minutes: 10 NuStep Workload: 3 Treatments Pt completes Supine Ex in bed to increase blood flow since pt had been laying as well as review Ex. Pt transfers to EOB then SPT to [facility]. Pt propels [facility] then completes Seated EX before using NuStep for 10m at WL 3. Pt returns to [facility] and propels in hallway and back to room. Pt transfers back to bed to rest at end of Rx. Pt has all needs met, call light in hand. Assessment Current Status: Fair Progress Pt continues to be limited by BP drop when standing. Pt is able to tolerate sitting though. PT Short Term Goals Short Term Goals Time Frame: Aug 18, 2019 Roll Left & Right: 6 Sit to lyin Lying to sitting on side of be: 6 Sit to stand: 4 Chair/iso-vc-urqea transfer: 4 Walk 10 feet: 4 Walk 50 feet with two turns: 4 PT Loading Dock Hand Goals Loading [place] Hand Goals PT [place] Hand Goals Time Frame: September 01, 2019 Roll Left & Right (QC): 6 Sit to Lying (QC): 6 Lying-Sitting on Side/Bed(QC): 6 Sit to Stand (QC): 6 Chair/Rwk-rz-Bitlc Xfer(QC): 6 Toilet Transfer (QC): 6 Car Transfer (QC): 6 Does the Patient Walk: No and Walking Goal IS indicated Walk 10 feet (QC): 6 Walk 50ft with 2 Turns (QC): 6 Walk 150 ft (QC): 6 Walking 10ft on Uneven Surface: 6 1 Step (curb) (QC): 4 4 Steps (QC): 4 12 Steps (QC): 88 Picking up an Object (QC): 88 Wheel 50 feet with 2 turns (QC: 9 Wheel 150 feet: 9 PT Plan Problem List Problem List: Activity Tolerance, Functional Strength, Safety, Balance, Gait, Transfer Treatment/Plan Treatment Plan: Continue Plan of Care Treatment Plan: Bed Mobility, Education, Functional Activity [place], Functional Strength, Group Therapy, Gait, Safety, Therapeutic Exercise, Transfers Treatment Duration: September 01, 2019 Frequency: At least 5 of 7 days/Wk (IRF) Estimated Hrs Per Day: 1.5 hours per day Patient and/or Family Agrees t: Yes Safety Risks/Education Patient Education: Transfer Techniques, Correct Positioning, W/C Management, Safety Issues Teaching Recipient: Patient Teaching Methods: Discussion Response to Teaching: Verbalize Understanding Time/GCodes Time In: 1000 Time Out: 1100 Total Billed Treatment Time: 60 Total Billed Treatment 1, WCH (20m) & EX x3 (40m) MUMTAZ CAMACHO AGRICULTURE DEPARTMENT CHAIR Aug 14, 2019 12:16
--- NOTE | 2019-08-14 14:09 | Physical Therapy Daily Note ---
PT Daily Note-Current Subjective Pt laying Supine in bed resting upon arrival. Pt agrees to Ex for Rx. Pain Numeric Pain Scale: 6 Location: Lower Location Body Site: Back Pain Description: Ache, Chronic Mental Status Patient Orientation: Person, Place Transfers SCALE: Activities may be completed with or without assistive devices. 2-Lvvwzypuze-tppnvsw completes the activity by him/herself with no assistance from a helper. 5-Set-up or Clean-up Assistance-helper sets up or cleans up; patient completes activity. [place] assists only prior to or following the activity. 4-Supervision or Touching Assistance-helper provides verbal cues and/or touching/steadying and/or contact guard assistance as patient completes activity. Assistance may be provided throughout the activity or intermittently. 3-Partial/Moderate Assistance-helper does LESS THAN HALF the effort. [place] lifts, holds or supports trunk or limbs, but provides less than half the effort. 2-Substantial/Maximal Assistance-helper does MORE THAN HALF the effort. [place] lifts or holds trunk or limbs and provides more than half the effort. 1-Dcoujiqiv-dfdngm does ALL the effort. Patient does none of the effort to complete the activity. Or, the assistance of 2 or more helpers is required for the patient to complete the activity. If activity was not attempted, code reason: 7-Patient Refused. 9-Not Applicable-not attempted and the patient did not perform the activity before the current illness, exacerbation or injury. 10-Not Attempted due to Environmental Limitations-(lack of equipment, weather restraints, etc.). 88-Not Attempted due to Medical Conditions or Safety Concerns. Weight Bearing Right Lower Extremity: Right Full Weight Bearing Left Lower Extremity: Left Full Weight Bearing Exercises Supine Ex: Ankle pumps, Quad Set, Heel Slides, Straight leg raise, Hip abd/add Supine Reps: 15 Treatments MECHANICAL LABORATORY TECHNICIAN reviewed Supine EX with pt and pt asked about the rest of the week's schedule. MECHANICAL LABORATORY TECHNICIAN reviewed this and pt rested at end of Rx. Pt has all needs met, call light in hand. Assessment Current Status: Fair Progress Pt fatigues easily and continues to demonstrate BP decrease with standing. PT Short Term Goals Short Term Goals Time Frame: Aug 18, 2019 Roll Left & Right: 6 Sit to lyin Lying to sitting on side of be: 6 Sit to stand: 4 Chair/kbo-ml-abugc transfer: 4 Walk 10 feet: 4 Walk 50 feet with two turns: 4 PT Catia Designer Goals Senior Care Goals PT Catia Designer Goals Time Frame: September 01, 2019 Roll Left & Right (QC): 6 Sit to Lying (QC): 6 Lying-Sitting on Side/Bed(QC): 6 Sit to Stand (QC): 6 Chair/Wyk-td-Vjpom Xfer(QC): 6 Toilet Transfer (QC): 6 Car Transfer (QC): 6 Does the Patient Walk: No and Walking Goal IS indicated Walk 10 feet (QC): 6 Walk 50ft with 2 Turns (QC): 6 Walk 150 ft (QC): 6 Walking 10ft on Uneven Surface: 6 1 Step (curb) (QC): 4 4 Steps (QC): 4 12 Steps (QC): 88 Picking up an Object (QC): 88 Wheel 50 feet with 2 turns (QC: 9 Wheel 150 feet: 9 PT Plan Problem List Problem List: Activity Tolerance, Functional Strength, Transfer Treatment/Plan Treatment Plan: Continue Plan of Care Treatment Plan: Bed Mobility, Education, Functional Activity [place], Functional Strength, Group Therapy, Gait, Safety, Therapeutic Exercise, Transfers Treatment Duration: September 01, 2019 Frequency: At least 5 of 7 days/Wk (IRF) Estimated Hrs Per Day: 1.5 hours per day Patient and/or Family Agrees t: Yes Safety Risks/Education Patient Education: Correct Positioning, Safety Issues Teaching Recipient: Patient Teaching Methods: Discussion Response to Teaching: Verbalize Understanding Time/GCodes Time In: 1330 Time Out: 1400 Total Billed Treatment Time: 30 Total Billed Treatment 1, FA (10m) & EX (20m) MUMTAZ CAMACHO PTA Aug 14, 2019 14:09
--- NOTE | 2019-08-14 14:51 | Occupational Ther Daily Note ---
OT Current Status-Daily Note Subjective No pain reported. Pt. states that she is tired. Appearance Pt. in bed. Agrees to work with OT. Mental Status/Objective Patient Orientation: Person, Place ADL-Treatment Therapy Code Descriptions/Definitions Functional [place] Measure: 0=Not Assessed/NA 4=Minimal Assistance 1=Total Assistance 5=Supervision or Setup 2=Maximal Assistance 6=Modified [place] 3=Moderate Assistance 7=Complete IndependenceSCALE: Activities may be completed with or without assistive devices. 9-Wrtilkqdog-zsbtnhb completes the activity by him/herself with no assistance from a helper. 5-Set-up or Clean-up Assistance-helper sets up or cleans up; patient completes a ctivity. [place] assists only prior to or following the activity. 4-Supervision or Touching Assistance-helper provides verbal cues and/or touching/steadying and/or contact guard assistance as patient completes activity. Assistance may be provided throughout the activity or intermittently. 3-Partial/Moderate Assistance-helper does LESS THAN HALF the effort. [place] lifts, holds or supports trunk or limbs, but provides less than half the effort. 2-Substantial/Maximal Assistance-helper does MORE THAN HALF the effort. [place] lifts or holds trunk or limbs and provides more than half the effort. 9-Ybyccsheb-gfmsvs does ALL the effort. Patient does none of the effort to complete the activity. Or, the assistance of 2 or more helpers is required for the patient to complete the activity. If activity was not attempted, code reason: 7-Patient Refused. 9-Not Applicable-not attempted and the patient did not perform the activity before the current illness, exacerbation or injury. 10-Not Attempted due to Environmental Limitations-(lack of equipment, weather restraints, etc.). 88-Not Attempted due to Medical Conditions or Safety Concerns. Pt. transferred supine-sit with SBA. Stood with CGA and transferred to wheelchair. Pt. self propelled to therapy gym, with increased time needed and min assist at times. Pt. completed 10 minutes on arm bike at min resistance, with one rest break noted. Slow pace noted. Completed this task to increase overall strength and endurance with functional tasks. Pt. taken to room via wheelchair. Completed sit-stand and pivot to bed in room. Pt. able to transfer sit-supine with no difficulty. All needs met. Education OT Patient Education: Correct positioning, Exercise program, Modified ADL techniques, Progress toward Goal/Update tx plan, Purpose of tx/functional activities, Reviewed precautions, Rehab process, Transfer techniques Teaching Recipient: Patient Teaching Methods: Demonstration, Discussion Response to Teaching: Verbalize Understanding, Return Demonstration OT Short Term Goals Short Term Goals Time Frame: Aug 18, 2019 Upper body dressin Lower body dressin Putting on/taking off footwear: 4 OT Personal Assistant Goals Halfway Goals Time Frame: August 25, 2019 Eating (QC): 6 Oral Hygiene (QC): 6 Toileting Hygiene (QC): 6 Shower/Bathe Self (QC): 4 Upper Body Dressing (QC): 6 Lower Body Dressing (QC): 6 On/Off Footwear (QC): 6 Additional Goals: 1-Demonstrate ADL Tasks, 2-Verbalize Understanding, 3- ImproveStrength/Bsuhra 1=Demonstrate adherence to instructed precautions during ADL tasks. 2=Patient will verbalize/demonstrate understanding of assistive devices/modifications for ADL. 3=Patient will improve strength/tolerance for activity to enable patient to perform ADL's. OT Education/Plan Problem List/Assessment Assessment: Decreased Activ Tolerance, Decreased UE Strength, Dependent Transfers, Impaired Coordination, Impaired Funct Balance, Impaired I ADL's, Impaired Self-Care Skills Discharge Recommendations Plan/Recommendations: Continue POC Therapy Discharge Recommendati: Home & Family Treatment Plan/Plan of Care Treatment,Training & Education: Yes Patient would benefit from OT for education, treatment and training to promote independence in ADL's, mobility, safety and/or upper extremity function for ADL's. Plan of Care: ADL Retraining, Functional Mobility, Group Exercise/Act as Ind, UE Funct Exercise/Act Treatment Duration: August 25, 2019 Frequency: At least 5 of 7 days/Wk (IRF) Estimated Hrs Per Day: 1.5 hours per day Agreement: Yes Rehab Potential: Guarded Time/GCodes Start Time: 14:00 Stop Time: 14:30 Total Time Billed (hr/min): 30 Billed Treatment Time 1, FA x 15minutes, Ex x 15minutes MARTINA IQBAL OT Aug 14, 2019 14:51
[2019-08-14 16:22] VITALS: BP 173/82
[2019-08-14] MEDS: ENOXAPARIN 40 MG/0.4 ML (LOVENOX) SYR SC SCH (17:48)
[2019-08-14 20:00] VITALS: BP 156/80
[2019-08-15 04:09] VITALS: BP 110/83
[2019-08-15] MEDS: LIPASE/AMYLASE/PROTEASE (PANCRELIPASE) 5,000 UNITS CAP PO SCH ×4 (06:15→20:41)
[2019-08-15] MEDS: metFORMIN 500 MG (GLUCOPHAGE) TAB PO SCH ×2 (06:15→17:20)
--- NOTE | 2019-08-15 06:17 | NUR ---
[facility]FORMIN ADMINISTERED,0600 FSBS 137. PATIENT TRANSFERRED TO [facility] [place] ASSISTANCE SIT TO STAND, GAIT BELT FOR SAFETY. PATIENT TRANSFERRED BACK TO BED FROM [facility] IN ADJACENT POSITION TO BED WITH CONTACT GUARD. PATIENT INDEPENDENT WITH BED MOBILITY, POSITIONING WITHOUT STAFF ASSISTANCE. PATIENT REFUSED SCDS THROUGHOUT NIGHT, DESPITE THOROUGH EDUCATION OF RISKS AND PURPOSE FROM THIS RN. PATIENT NOTED TO BE REFUSING LOVENOX. STATES IT CAUSED "BLOODY STOOLS LAST YEAR" PATIENT EDUCATED REGARDING MEDICATION ORDER AND RISKS OF NON COMPLIANCE. PATIENT STATES, "I DON'T CARE, I'M NOT TAKING IT." CONTINUE TO MONITOR
[2019-08-15] MEDS ORDERED: metFORMIN 500 MG (GLUCOPHAGE) TAB ONE (06:29)
--- NOTE | 2019-08-15 07:42 | NUR ---
To BSC at this time with minimal assist. Pt able to stand and pivot, staff to assist with CGA. Call light in reach. Staff left rm to provide privacy and pt instructed to use call light for assistance when needed.
--- NOTE | 2019-08-15 07:45 | NUR ---
Called to rm at this time. Pt found sitting up on floor in front the BSC. ROM WNL. Denies pain. States she doesn't know if she hit her head. Stated she was trying to have a bowel movement and doesn't remember how she got to the floor. No redness, bruising or bumps noted. Neuro's WNL. Assisted to recliner. Chair alarm put in place. Call light in reach.
[2019-08-15 07:50] VITALS: BP 93/55
--- NOTE | 2019-08-15 07:57 | NUR ---
Dry House Tender notified. Cont without complaints.
[2019-08-15] MEDS: FLUDROCORTISONE 0.1 MG (FLORINEF) TAB PO SCH (09:20)
[2019-08-15] MEDS: DULoxetine 30 MG (CYMBALTA) CAP PO SCH (09:20)
[2019-08-15] MEDS: GABAPENTIN 100 MG (NEURONTIN) CAP PO SCH ×3 (09:20→20:41)
[2019-08-15] MEDS: MAGNESIUM OXIDE (MAG-OX)400 MG TAB PO SCH ×2 (09:20→17:21)
[2019-08-15] MEDS: FAMOTIDINE 20 MG (PEPCID) TABLET PO SCH (09:21)
[2019-08-15] MEDS: KCL 10 MEQ TAB (MICRO K) PO SCH ×3 (09:21→17:21)
[2019-08-15] MEDS: MIDODRINE 10 MG (PROAMATINE) TAB PO SCH ×3 (09:21→20:41)
[2019-08-15] MEDS: NORTHERA PO SCH ×3 (09:42→17:21)
[2019-08-15] MEDS: FLUTICASONE NASAL SPRAY (FLONASE) 16 GM BTL NS SCH (09:42)
[2019-08-15] MEDS: SENNA W/DOCUSATE (SENOKOT S) TABLET PO SCH ×2 (09:43→20:41)
[2019-08-15] MEDS: COLESTIPOL 1 GM (COLESTID) TAB PO SCH ×2 (09:43→20:41)
[2019-08-15] MEDS: DOCUSATE SODIUM 100 MG (COLACE) CAP PO SCH ×2 (09:43→20:41)
[2019-08-15] MEDS: polyethylene glycoL POWDER 17 GM (MIRALAX) PACK PO SCH ×2 (09:43→20:42)
--- NOTE | 2019-08-15 09:59 | Physical Therapy Daily Note ---
PT Daily Note-Current Subjective Patient in recliner pre tx, agrees to PT, has no complaints of pain at rest. However, patient does have intermittent back pain during treatment. Appearance Patient BTB post tx with nurse call, phone, tray, all needs met, bed alarm on. Mental Status Patient Orientation: Person, Place, Situation Transfers SCALE: Activities may be completed with or without assistive devices. 9-Ygbmymtmvp-xqukfmv completes the activity by him/herself with no assistance from a helper. 5-Set-up or Clean-up Assistance-helper sets up or cleans up; patient completes activity. Guy assists only prior to or following the activity. 4-Supervision or Touching Assistance-helper provides verbal cues and/or touching/steadying and/or contact guard assistance as patient completes activity. Assistance may be provided throughout the activity or intermittently. 3-Partial/Moderate Assistance-helper does LESS THAN HALF the effort. Guy lifts, holds or supports trunk or limbs, but provides less than half the effort. 2-Substantial/Maximal Assistance-helper does MORE THAN HALF the effort. Guy lifts or holds trunk or limbs and provides more than half the effort. 7-Qrmjmzhnz-wdkiwd does ALL the effort. Patient does none of the effort to complete the activity. Or, the assistance of 2 or more helpers is required for the patient to complete the activity. If activity was not attempted, code reason: 7-Patient Refused. 9-Not Applicable-not attempted and the patient did not perform the activity before the current illness, exacerbation or injury. 10-Not Attempted due to Environmental Limitations-(lack of equipment, weather restraints, etc.). 88-Not Attempted due to Medical Conditions or Safety Concerns. Roll Left & Right (QC): 6 Sit to Lying (QC): 3 Sit to Stand (QC): 4 Chair/Atr-dl-Mivjs Xfer(QC): 4 Weight Bearing Right Lower Extremity: Right Full Weight Bearing Left Lower Extremity: Left Full Weight Bearing Gait Training Distance: 8'x2 Gait Persons Needed: 1 Gait Assistive Device: Parallel Bars CGA, no knee bucking but ambulated very slowly, patient states she did have slight light headedness but not bad. Wheelchair Training Does the Pt Use a Wheelchair?: Yes Wheel 50 ft with 2 turns (QC): 4 Wheel 150 ft (QC): 4 Type of Wheelchair: Manual SBA, very slow, needs several rest breaks Exercises Standing: Heel/toe raises, Mini squats Standing Reps: 10 NuStep Minutes: 15 NuStep Workload: 4 Treatments LE strengthening, WC mobility, ambulation Assessment Current Status: Fair Progress less light headedness, slowly improving general mobility, very low endurance needs frequent rest breaks PT Short Term Goals Short Term Goals Time Frame: Aug 18, 2019 Roll Left & Right: 6 Sit to lyin Lying to sitting on side of be: 6 Sit to stand: 4 Chair/eqb-ec-yjmai transfer: 4 Walk 10 feet: 4 Walk 50 feet with two turns: 4 PT Security Dispatcher Goals Residential Goals PT Residential Goals Time Frame: September 01, 2019 Roll Left & Right (QC): 6 Sit to Lying (QC): 6 Lying-Sitting on Side/Bed(QC): 6 Sit to Stand (QC): 6 Chair/Jhy-cc-Nlxns Xfer(QC): 6 Toilet Transfer (QC): 6 Car Transfer (QC): 6 Does the Patient Walk: No and Walking Goal IS indicated Walk 10 feet (QC): 6 Walk 50ft with 2 Turns (QC): 6 Walk 150 ft (QC): 6 Walking 10ft on Uneven Surface: 6 1 Step (curb) (QC): 4 4 Steps (QC): 4 12 Steps (QC): 88 Picking up an Object (QC): 88 Wheel 50 feet with 2 turns (QC: 9 Wheel 150 feet: 9 PT Plan Problem List Problem List: Activity Tolerance, Functional Strength, Safety, Balance, Gait, Transfer, Bed Mobility, ROM Treatment/Plan Treatment Plan: Continue Plan of Care Treatment Plan: Bed Mobility, Education, Functional Activity [place], Functional Strength, Group Therapy, Gait, Safety, Therapeutic Exercise, Transfers Treatment Duration: September 01, 2019 Frequency: At least 5 of 7 days/Wk (IRF) Estimated Hrs Per Day: 1.5 hours per day Patient and/or Family Agrees t: Yes Safety Risks/Education Patient Education: Gait Training, Transfer Techniques, Correct Positioning, W/C Management, Safety Issues Teaching Recipient: Patient Teaching Methods: Demonstration, Discussion Response to Teaching: Reinforcement Needed Time/GCodes Time In: 0900 Time Out: 1000 Total Billed Treatment Time: 60 Total Billed Treatment 1 visit EX 30' FA 30' ANGELIC TRAN PT Aug 15, 2019 09:59
--- NOTE | 2019-08-15 10:27 | Occupational Ther Daily Note ---
OT Current Status-Daily Note Subjective Pt sitting in chair, reports fatigue this morning. Agrees to therapy with encouragement. Pt reports 4/10 back pain. ADL-Treatment Pt sitting in chair, agrees to sponge bath. BP in sitting 120/63. Pt doffed gown with increased time. Upper body bathing completed with SBA. Pt able to wash bi lateral upper/lower legs and remedios area with SBA. Min assist to wash buttocks. Don pullover shirt with set up. Pt able to thread bilateral LE into underwear and pants. Stood with min assist for pant hike. Pt able to doff/don socks with SBA. Assisted pt to wash hair with shampoo cap. Pt combed hair with set up. After set up pt able to put denture paste on dentures and place in mouth. Pt takes much increased time for all ADL tasks. Pt takes frequent rest breaks throughout treatment secondary to fatigue. Pt sitting in chair with needs met after session. Therapy Code Descriptions/Definitions Functional [place] Measure: 0=Not Assessed/NA 4=Minimal Assistance 1=Total Assistance 5=Supervision or Setup 2=Maximal Assistance 6=Modified [place] 3=Moderate Assistance 7=Complete IndependenceSCALE: Activities may be completed with or without assistive devices. 7-Chsoqmqtua-sueraee completes the activity by him/herself with no assistance from a helper. 5-Set-up or Clean-up Assistance-helper sets up or cleans up; patient completes activity. [place] assists only prior to or following the activity. 4-Supervision or Touching Assistance-helper provides verbal cues and/or touching/steadying and/or contact guard assistance as patient completes activity. Assistance may be provided throughout the activity or intermittently. 3-Partial/Moderate Assistance-helper does LESS THAN HALF the effort. [place] lifts, holds or supports trunk or limbs, but provides less than half the effort. 2-Substantial/Maximal Assistance-helper does MORE THAN HALF the effort. [place] lifts or holds trunk or limbs and provides more than half the effort. 3-Npapjoidl-icnmhn does ALL the effort. Patient does none of the effort to complete the activity. Or, the assistance of 2 or more helpers is required for the patient to complete the activity. If activity was not attempted, code reason: 7-Patient Refused. 9-Not Applicable-not attempted and the patient did not perform the activity before the current illness, exacerbation or injury. 10-Not Attempted due to Environmental Limitations-(lack of equipment, weather restraints, etc.). 88-Not Attempted due to Medical Conditions or Safety Concerns. Shower/Bathe Self (QC): 3 Upper Body Dressing (QC): 5 Lower Body Dressing (QC): 3 On/Off Footwear: 4 OT Short Term Goals Short Term Goals Time Frame: Aug 18, 2019 Upper body dressin Lower body dressin Putting on/taking off footwear: 4 OT Investment Associate Goals Investment Associate Goals Time Frame: August 25, 2019 Eating (QC): 6 Oral Hygiene (QC): 6 Toileting Hygiene (QC): 6 Shower/Bathe Self (QC): 4 Upper Body Dressing (QC): 6 Lower Body Dressing (QC): 6 On/Off Footwear (QC): 6 Additional Goals: 1-Demonstrate ADL Tasks, 2-Verbalize Understanding, 3- ImproveStrength/[place] 1=Demonstrate adherence to instructed precautions during ADL tasks. 2=Patient will verbalize/demonstrate understanding of assistive devices/modifications for ADL. 3=Patient will improve strength/tolerance for activity to enable patient to perform ADL's. OT Education/Plan Discharge Recommendations Plan/Recommendations: Continue POC Treatment Plan/Plan of Care Patient would benefit from OT for education, treatment and training to promote independence in ADL's, mobility, safety and/or upper extremity function for ADL's. Plan of Care: ADL Retraining, Functional Mobility, Group Exercise/Act as Ind, UE Funct Exercise/Act Treatment Duration: August 25, 2019 Frequency: At least 5 of 7 days/Wk (IRF) Estimated Hrs Per Day: 1.5 hours per day Agreement: Yes Rehab Potential: Guarded Time/GCodes Start Time: 08:00 Stop Time: 09:00 Total Time Billed (hr/min): 60 Billed Treatment Time 1 visit, ADLx4(60minutes) ADALGISA LIANG OT Aug 15, 2019 10:27
--- NOTE | 2019-08-15 11:52 | PM&R Progress Note ---
Subjective HPI/CC On Admission Date Seen by Provider: Aug 15, 2019 Time Seen by Provider: 11:15 Subjective/Events-last exam Patient has orthostasis frequently Fall occurred this morning without injury Checked BP trends and noted labile status but she is on max treatment from specialists No pain reported Wants to go home soon and she is trying to get stronger in order to do that BM are loose so holding laxatives Team meeting discussed POTS in-depth on Sun Reviewed therapy notes Checked meds and labs Conferred with telehealth coordinator of Systems General: Fatigue Neurological: Weakness, Incoordination Objective Exam Vital Signs Vital Signs Date Time Temp Pulse Resp B/P (MAP) Pulse Ox O2 Delivery O2 Flow Rate FiO2 08/15/19 09:57 Room Air 08/15/19 04:09 36.7 82 18 110/83 (92) 94 Capillary Refill : Less Than 3 Seconds General Appearance: No Apparent Distress, WD/WN, Chronically ill, Thin, Other (frail) HEENT: PERRL/EOMI, Normal ENT Inspection, Pharynx Normal Neck: Full Range of Motion, Normal Inspection, Non Tender, Supple, Carotid Bruit Respiratory: Chest Non Tender, Lungs Clear, Normal Breath Sounds, No Accessory Muscle Use, No Respiratory Distress Cardiovascular: Regular Rate, Rhythm, No Edema, No Gallop, No JVD, No Murmur, Normal Peripheral Pulses Gastrointestinal: Normal Bowel Sounds, No Organomegaly, No Pulsatile Mass, Non Tender, Soft Back: Normal Inspection, No CVA Tenderness, No Vertebral Tenderness Extremity: Normal Capillary Refill, Normal Inspection, Normal Range of Motion, Non Tender, No Calf Tenderness, No Pedal Edema Neurologic/Psychiatric: Alert, Oriented x3, No Motor/Sensory Deficits (legs 4/5 strength), Normal Mood/Affect Skin: Normal Color, Warm/Dry Lymphatic: No Adenopathy Results/Procedures Lab Patient resulted labs reviewed. FIM Transfers Therapy Code Descriptions/Definitions Functional [place] Measure: 0=Not Assessed/NA 4=Minimal Assistance 1=Total Assistance 5=Supervision or Setup 2=Maximal Assistance 6=Modified [place] 3=Moderate Assistance 7=Complete IndependenceSCALE: Activities may be completed with or without assistive devices. 8-Sqmuqlfnxa-wabcbiq completes the activity by him/herself with no assistance from a helper. 5-Set-up or Clean-up Assistance-helper sets up or cleans up; patient completes activity. [place] assists only prior to or following the activity. 4-Supervision or Touching Assistance-helper provides verbal cues and/or touching/steadying and/or contact guard assistance as patient completes activity. Assistance may be provided throughout the activity or intermittently. 3-Partial/Moderate Assistance-helper does LESS THAN HALF the effort. [place] lifts, holds or supports trunk or limbs, but provides less than half the effort. 2-Substantial/Maximal Assistance-helper does MORE THAN HALF the effort. [place] lifts or holds trunk or limbs and provides more than half the effort. 8-Oavicupjh-fdchux does ALL the effort. Patient does none of the effort to complete the activity. Or, the assistance of 2 or more helpers is required for the patient to complete the activity. If activity was not attempted, code reason: 7-Patient Refused. 9-Not Applicable-not attempted and the patient did not perform the activity before the current illness, exacerbation or injury. 10-Not Attempted due to Environmental Limitations-(lack of equipment, weather restraints, etc.). 88-Not Attempted due to Medical Conditions or Safety Concerns. Roll Left to Right (QC): 6 Sit to Lying (QC): 3 Sit to Stand (QC): 4 Chair/Fqz-fu-Sjjmj Xfer(QC): 4 Car Transfer (QC): 4 Gait Training Does the Patient Walk?: Yes Distance: 8'x2 Walk 10 feet (QC): 88 Walk 50 ft with 2 Turns(QC): 88 Walk 150 ft (QC): 88 Walking 10ft/uneven surface-QC: 88 Gait Persons Needed: 1 Gait Assistive Device: Parallel Bars Wheelchair Training Does the Pt Use a Wheelchair?: Yes Distance: 150' Wheel 50 ft with 2 turns (QC): 4 Wheel 150 ft (QC): 4 Type of Wheelchair: Manual Stair Training 1 Step (curb) (QC): 88 4 Steps (QC): 88 12 Steps (QC): 88 Balance Picking up an Object (QC): 88 ADL-Treatment Eating (QC): 6 Oral Hygiene (QC): 5 Bathing Location: L Arm, R Arm, L Upper Leg, R Upper Leg, L Lower Leg (including foot), R Lower Leg (including foot), Chest, Abdomen, Perineal Area Shower/Bathe Self (QC): 3 Upper Body Dressing (QC): 5 Lower Body Dressing (QC): 3 On/Off Footwear (QC): 4 Toileting Hygiene (QC): 3 (Min assist in stance for balance while pt. cleanses self after toileting.) Toilet Transfer (QC): 3 (Min assist.) Assessment/Plan Assessment and Plan Assess & Plan/Chief Complaint Assessment: (1A) Debility with major fall risk requiring IRF (1) s/p Sepsis (2) Acute UTI completing PO abx now (3) Abdominal pain (4) Hypokalemia (5) Neurogenic bladder-self caths maintained Urology at [facility] regular basis (6) Headache (7) Diabetes mellitus (8) Unsteady gait with POTS (Postoral orthostasis tachycardia syndrome) (9) Physical debility (10) DVT prophylaxis (11) Low back pain chronic w/h/o lumbar spine surgery (12) DM (13) Vit B12 def Plan: Maintain on home meds Permissive hypertension due to severity of her orthostasis when standing up Pain control Bowel regimen to maintain Intensive therapies Straight in/out caths prn Cefdinir completed Fall risk (1) Physical debility Status: Acute (2) Unsteady gait Status: Acute (3) POTS (postural orthostatic tachycardia syndrome) Status: Chronic (4) Acute UTI Status: Acute (5) History of UTI Status: Chronic (6) Weakness Status: Chronic (7) Hypokalemia Status: Acute (8) Diabetes mellitus Status: Chronic (9) Neurogenic bladder Status: Chronic (10) DVT prophylaxis Status: Acute (11) Headache Status: Resolved Resolution Date/Time: 08/07/19 @ 12:08 (12) Low back pain (13) GERD (gastroesophageal reflux disease) Status: Chronic (14) Neuropathy MALIKA VÁZQUEZ DO Aug 15, 2019 11:52
--- NOTE | 2019-08-15 12:00 | NUR ---
Notified Dr Garg pt refusing lovenox and SCD's.
--- NOTE | 2019-08-15 14:00 | Physical Therapy Daily Note ---
PT Daily Note-Current Subjective Patient in therapy gym post OT, has no complaints of pain at rest, agrees to PT. Appearance Patient in bed post tx with nurse call, phone, tray, all needs met. Mental Status Patient Orientation: Person, Place, Situation Transfers SCALE: Activities may be completed with or without assistive devices. 5-Qpjypttuhp-otyvvvx completes the activity by him/herself with no assistance from a helper. 5-Set-up or Clean-up Assistance-helper sets up or cleans up; patient completes activity. [place] assists only prior to or following the activity. 4-Supervision or Touching Assistance-helper provides verbal cues and/or touching/steadying and/or contact guard assistance as patient completes activity. Assistance may be provided throughout the activity or intermittently. 3-Partial/Moderate Assistance-helper does LESS THAN HALF the effort. [place] lifts, holds or supports trunk or limbs, but provides less than half the effort. 2-Substantial/Maximal Assistance-helper does MORE THAN HALF the effort. [place] lifts or holds trunk or limbs and provides more than half the effort. 4-Hyncieqmf-cuevgi does ALL the effort. Patient does none of the effort to complete the activity. Or, the assistance of 2 or more helpers is required for the patient to complete the activity. If activity was not attempted, code reason: 7-Patient Refused. 9-Not Applicable-not attempted and the patient did not perform the activity before the current illness, exacerbation or injury. 10-Not Attempted due to Environmental Limitations-(lack of equipment, weather restraints, etc.). 88-Not Attempted due to Medical Conditions or Safety Concerns. Roll Left & Right (QC): 6 Sit to Lying (QC): 3 Sit to Stand (QC): 4 Chair/Gsn-py-Jfvip Xfer(QC): 4 CGA for transfers Weight Bearing Right Lower Extremity: Right Full Weight Bearing Left Lower Extremity: Left Full Weight Bearing Gait Training Distance: 10'x3 Walk 10 feet (QC): 4 Gait Persons Needed: 1 Gait Assistive Device: Parallel Bars CGA, slow but no knee buckling Wheelchair Training Does the Pt Use a Wheelchair?: Yes Wheel 50 ft with 2 turns (QC): 4 Type of Wheelchair: Manual 120' SBA Exercises Seated Therapy Exercises: Ankle pumps, Hip flexion, Hip abd/add (with ball and RTB) Seated Reps: 20 LAQ alternating for 5 min Treatments LE strengthening, WC mobility, ambulation Assessment Current Status: Fair Progress slowly improving endurance and ambulation without worsening dizziness PT Short Term Goals Short Term Goals Time Frame: Aug 18, 2019 Roll Left & Right: 6 Sit to lyin Lying to sitting on side of be: 6 Sit to stand: 4 Chair/kbm-qf-zekof transfer: 4 Walk 10 feet: 4 Walk 50 feet with two turns: 4 PT Family Preservation Caseworker Goals Family Preservation Caseworker Goals PT Family Preservation Caseworker Goals Time Frame: September 01, 2019 Roll Left & Right (QC): 6 Sit to Lying (QC): 6 Lying-Sitting on Side/Bed(QC): 6 Sit to Stand (QC): 6 Chair/Tbk-cr-Vetjz Xfer(QC): 6 Toilet Transfer (QC): 6 Car Transfer (QC): 6 Does the Patient Walk: No and Walking Goal IS indicated Walk 10 feet (QC): 6 Walk 50ft with 2 Turns (QC): 6 Walk 150 ft (QC): 6 Walking 10ft on Uneven Surface: 6 1 Step (curb) (QC): 4 4 Steps (QC): 4 12 Steps (QC): 88 Picking up an Object (QC): 88 Wheel 50 feet with 2 turns (QC: 9 Wheel 150 feet: 9 PT Plan Problem List Problem List: Activity Tolerance, Functional Strength, Safety, Balance, Gait, Transfer, Bed Mobility, ROM Treatment/Plan Treatment Plan: Continue Plan of Care Treatment Plan: Bed Mobility, Education, Functional Activity [place], Functional Strength, Group Therapy, Gait, Safety, Therapeutic Exercise, Transfers Treatment Duration: September 01, 2019 Frequency: At least 5 of 7 days/Wk (IRF) Estimated Hrs Per Day: 1.5 hours per day Patient and/or Family Agrees t: Yes Safety Risks/Education Patient Education: Gait Training, Transfer Techniques, Correct Positioning, W/C Management, Safety Issues Teaching Recipient: Patient Teaching Methods: Demonstration, Discussion Response to Teaching: Reinforcement Needed Time/GCodes Time In: 1330 Time Out: 1400 Total Billed Treatment Time: 30 Total Billed Treatment 1 visit GT 10' EX 20' ANGELIC TRAN PT Aug 15, 2019 14:00
--- NOTE | 2019-08-15 14:35 | Occupational Ther Daily Note ---
OT Current Status-Daily Note Subjective Pt agreeable to treatment this pm. Reports back pain, but does not rate. ADL-Treatment Therapy Code Descriptions/Definitions Functional [place] Measure: 0=Not Assessed/NA 4=Minimal Assistance 1=Total Assistance 5=Supervision or Setup 2=Maximal Assistance 6=Modified [place] 3=Moderate Assistance 7=Complete IndependenceSCALE: Activities may be completed with or without assistive devices. 1-Tuvejujadr-zwbgayf completes the activity by him/herself with no assistance from a helper. 5-Set-up or Clean-up Assistance-helper sets up or cleans up; patient completes activity. [place] assists only prior to or following the activity. 4-Supervision or Touching Assistance-helper provides verbal cues and/or touching/steadying and/or contact guard assistance as patient completes activity. Assistance may be provided throughout the activity or intermittently. 3-Partial/Moderate Assistance-helper does LESS THAN HALF the effort. [place] lifts, holds or supports trunk or limbs, but provides less than half the effort. 2-Substantial/Maximal Assistance-helper does MORE THAN HALF the effort. [place] lifts or holds trunk or limbs and provides more than half the effort. 4-Ljfvwbaem-izhczl does ALL the effort. Patient does none of the effort to complete the activity. Or, the assistance of 2 or more helpers is required for the patient to complete the activity. If activity was not attempted, code reason: 7-Patient Refused. 9-Not Applicable-not attempted and the patient did not perform the activity before the current illness, exacerbation or injury. 10-Not Attempted due to Environmental Limitations-(lack of equipment, weather restraints, etc.). 88-Not Attempted due to Medical Conditions or Safety Concerns. Other Treatment Pt transferred to w/c with min assist for safety. Pt performed w/c mobility with SBA, but moves slowly and requires increased time. Skilled cues for task completion. Arm bike x10 minutes to increase overall strength and activity tolerance needed for functional task completion. Pt performed task with minimal resistance and slow pace. Pt takes frequent rest breaks and requires increased time to complete activity. Pt in therapy gym for PT after session. OT Short Term Goals Short Term Goals Time Frame: Aug 18, 2019 Upper body dressin Lower body dressin Putting on/taking off footwear: 4 OT [place] Measurer Goals Long-Term Goals Time Frame: August 25, 2019 Eating (QC): 6 Oral Hygiene (QC): 6 Toileting Hygiene (QC): 6 Shower/Bathe Self (QC): 4 Upper Body Dressing (QC): 6 Lower Body Dressing (QC): 6 On/Off Footwear (QC): 6 Additional Goals: 1-Demonstrate ADL Tasks, 2-Verbalize Understanding, 3-ImproveStrength/[place] 1=Demonstrate adherence to instructed precautions during ADL tasks. 2=Patient will verbalize/demonstrate understanding of assistive devices/modifications for ADL. 3=Patient will improve strength/tolerance for activity to enable patient to perform ADL's. OT Education/Plan Discharge Recommendations Plan/Recommendations: Continue POC Treatment Plan/Plan of Care Patient would benefit from OT for education, treatment and training to promote independence in ADL's, mobility, safety and/or upper extremity function for ADL's. Plan of Care: ADL Retraining, Functional Mobility, Group Exercise/Act as Ind, UE Funct Exercise/Act Treatment Duration: August 25, 2019 Frequency: At least 5 of 7 days/Wk (IRF) Estimated Hrs Per Day: 1.5 hours per day Agreement: Yes Rehab Potential: Guarded Time/GCodes Start Time: 13:00 Stop Time: 13:30 Total Time Billed (hr/min): 30 Billed Treatment Time 1 visit, FA(10minutes), EX(20minutes) ADALGISA LIANG OT Aug 15, 2019 14:35
--- NOTE | 2019-08-15 16:52 | NUR ---
Harvinder notified of fall and that had been here to see pt today. Pt denied c/o injury or pain r/t fall.
[2019-08-15] MEDS: ENOXAPARIN 40 MG/0.4 ML (LOVENOX) SYR SC SCH (17:16)
[2019-08-15 18:00] VITALS: BP 164/80
--- NOTE | 2019-08-15 19:30 | NUR ---
Pts daughter called in regards to pt found on floor. Told her that pt was on found on floor. Pt was on BSC and trying to have BM and pt stated she didn't remember how she got on the floor. Informed her that Dr Garg had been here to see pt, pt denied complaints or pain. No redness, bruising or bumps noted. Intervention screen updated not to leave pt on BSC/toilet unattended. Reviewed pts meds and checked bld sugar (201). Also informed pts daughter that neuro checks were WNL and will cont to monitor.
--- NOTE | 2019-08-16 00:18 | NUR ---
Patient straight cathed per patient request using sterile technique. 350 ml slightly cloudy, light yvonne urine obtained. Urine has a noticeable odor. SOFIA García asssisted. Patient tolerated procedure well.
[2019-08-16 05:43] VITALS: BP 107/67
[2019-08-16] MEDS ORDERED: glipiZIDE 5 MG (GLUCOTROL) TAB PO SCH (06:30)
[2019-08-16] MEDS: metFORMIN 500 MG (GLUCOPHAGE) TAB PO SCH ×2 (06:43→17:07)
[2019-08-16] MEDS: LIPASE/AMYLASE/PROTEASE (PANCRELIPASE) 5,000 UNITS CAP PO SCH ×4 (06:43→19:46)
[2019-08-16 08:00] VITALS: BP 89/55
[2019-08-16] MEDS: DOCUSATE SODIUM 100 MG (COLACE) CAP PO SCH ×2 (08:18→19:46)
[2019-08-16] MEDS: DULoxetine 30 MG (CYMBALTA) CAP PO SCH (08:18)
[2019-08-16] MEDS: FLUDROCORTISONE 0.1 MG (FLORINEF) TAB PO SCH (08:18)
[2019-08-16] MEDS: GABAPENTIN 100 MG (NEURONTIN) CAP PO SCH ×3 (08:19→19:45)
[2019-08-16] MEDS: KCL 10 MEQ TAB (MICRO K) PO SCH ×3 (08:19→17:07)
[2019-08-16] MEDS: SENNA W/DOCUSATE (SENOKOT S) TABLET PO SCH ×2 (08:19→19:46)
[2019-08-16] MEDS: FAMOTIDINE 20 MG (PEPCID) TABLET PO SCH (08:19)
[2019-08-16] MEDS: MIDODRINE 10 MG (PROAMATINE) TAB PO SCH ×3 (08:19→19:45)
[2019-08-16] MEDS: MAGNESIUM OXIDE (MAG-OX)400 MG TAB PO SCH ×2 (08:19→17:07)
[2019-08-16] MEDS: NORTHERA PO SCH ×3 (08:20→17:08)
[2019-08-16] MEDS: polyethylene glycoL POWDER 17 GM (MIRALAX) PACK PO SCH ×2 (08:21→19:59)
[2019-08-16] MEDS: COLESTIPOL 1 GM (COLESTID) TAB PO SCH ×2 (08:21→19:45)
[2019-08-16] MEDS: FLUTICASONE NASAL SPRAY (FLONASE) 16 GM BTL NS SCH (08:22)
--- NOTE | 2019-08-16 09:45 | NUR ---
BLADDER SCAN DONE AND SHOWING 248 MLS. PATIENT WANTS TO WAIT "A LITTLE LONGER" FOR STRAIGHT CATH.
--- NOTE | 2019-08-16 11:22 | Physical Therapy Daily Note ---
PT Daily Note-Current Subjective Pt lying in bed sleeping, upon arrival. Pt woken up and states " I'm really tired today. I'll do what I can." Pain Numeric Pain Scale: 0-No Pain Location: No Pain Reported Mental Status Patient Orientation: Person, Place, Time, Situation Transfers SCALE: Activities may be completed with or without assistive devices. 4-Mkunawokmx-uqpszwb completes the activity by him/herself with no assistance from a helper. 5-Set-up or Clean-up Assistance-helper sets up or cleans up; patient completes activity. [place] assists only prior to or following the activity. 4-Supervision or Touching Assistance-helper provides verbal cues and/or touching/steadying and/or contact guard assistance as patient completes activity. Assistance may be provided throughout the activity or intermittently. 3-Partial/Moderate Assistance-helper does LESS THAN HALF the effort. [place] lifts, holds or supports trunk or limbs, but provides less than half the effort. 2-Substantial/Maximal Assistance-helper does MORE THAN HALF the effort. [place] lifts or holds trunk or limbs and provides more than half the effort. 8-Axawzpfvu-sksjdh does ALL the effort. Patient does none of the effort to complete the activity. Or, the assistance of 2 or more helpers is required for the patient to complete the activity. If activity was not attempted, code reason: 7-Patient Refused. 9-Not Applicable-not attempted and the patient did not perform the activity before the current illness, exacerbation or injury. 10-Not Attempted due to Environmental Limitations-(lack of equipment, weather restraints, etc.). 88-Not Attempted due to Medical Conditions or Safety Concerns. Roll Left & Right (QC): 6 Sit to Lying (QC): 4 Lying to Sitting/Side of Bed(Q: 3 Pt requires ModA x1 to go from lying to EOB. Weight Bearing Right Lower Extremity: Right Full Weight Bearing Left Lower Extremity: Left Full Weight Bearing Exercises Supine Ex: Ankle pumps, Glut sets, Heel Slides, Short Arc Quads, Straight leg raise, Hip abd/add Supine Reps: 30 Treatments Pt completes Supine EX in bed, then sits EOB for 5 mins. After returning to supine, pt states "My head isn't swimming as bad now", pt completes bed mobility to scoot self up higher in bed. Pt in bed w/ bed alarm enabled, call light and bedside table w/in reach and all needs met at end of tx. Assessment Current Status: Fair Progress Pt tired today and requires rest breaks between Supine EX. Pt c/o "head swimming" going from supine to EOB. Pt refuses sit to stand activity and ambul ation; d/t pt "head swimming" ROLLER COASTER DESIGNER did not persist w/ these activities. PT Short Term Goals Short Term Goals Time Frame: Aug 18, 2019 Roll Left & Right: 6 Sit to lyin Lying to sitting on side of be: 6 Sit to stand: 4 Chair/psi-sc-wepod transfer: 4 Walk 10 feet: 4 Walk 50 feet with two turns: 4 PT Intermediate Goals [place] Stitcher Goals PT Intermediate Goals Time Frame: September 01, 2019 Roll Left & Right (QC): 6 Sit to Lying (QC): 6 Lying-Sitting on Side/Bed(QC): 6 Sit to Stand (QC): 6 Chair/Hcx-zo-Tntme Xfer(QC): 6 Toilet Transfer (QC): 6 Car Transfer (QC): 6 Does the Patient Walk: No and Walking Goal IS indicated Walk 10 feet (QC): 6 Walk 50ft with 2 Turns (QC): 6 Walk 150 ft (QC): 6 Walking 10ft on Uneven Surface: 6 1 Step (curb) (QC): 4 4 Steps (QC): 4 12 Steps (QC): 88 Picking up an Object (QC): 88 Wheel 50 feet with 2 turns (QC: 9 Wheel 150 feet: 9 PT Plan Problem List Problem List: Activity Tolerance, Safety, Bed Mobility Treatment/Plan Treatment Plan: Continue Plan of Care Treatment Plan: Bed Mobility, Education, Functional Activity [place], Functional Strength, Group Therapy, Gait, Safety, Therapeutic Exercise, Transfers Treatment Duration: September 01, 2019 Frequency: At least 5 of 7 days/Wk (IRF) Estimated Hrs Per Day: 1.5 hours per day Patient and/or Family Agrees t: Yes Safety Risks/Education Patient Education: Correct Positioning, Safety Issues Teaching Recipient: Patient Teaching Methods: Demonstration Response to Teaching: Verbalize Understanding Time/GCodes Time In: 1045 Time Out: 1115 Total Billed Treatment Time: 30 Total Billed Treatment 1 visit EX x2 (30m) JANIE DONATO ROLLER COASTER DESIGNER Aug 16, 2019 11:22
--- NOTE | 2019-08-16 12:13 | PM&R Progress Note ---
Subjective HPI/CC On Admission Date Seen by Provider: Aug 16, 2019 Time Seen by Provider: 12:15 Subjective/Events-last exam Patient has orthostasis frequently and after rounds she had an episode of near syncope when she stood off commode prompting labs and giving IVF She's simply not eating enough and seems to be slowly declining Checked BP trends and noted labile status but she is on max treatment from specialists No pain reported Wants to go home soon and she is trying to get stronger in order to do that but she may be wheelchair bound BM are varied POTS is a very severe condition and since she is so frail and weak and not eating well it exacerbates the condition Reviewed therapy notes Checked meds and labs Conferred with addresser of Systems General: Fatigue, Malaise Neurological: Weakness Objective Exam Vital Signs Vital Signs Date Time Temp Pulse Resp B/P (MAP) Pulse Ox O2 Delivery O2 Flow Rate FiO2 08/16/19 09:54 Room Air 08/16/19 08:00 87 89/55 (66) 08/16/19 05:43 36.8 18 94 Capillary Refill : Less Than 3 Seconds General Appearance: No Apparent Distress, WD/WN, Chronically ill, Thin, Other (frail) HEENT: PERRL/EOMI, Normal ENT Inspection, Pharynx Normal Neck: Full Range of Motion, Normal Inspection, Non Tender, Supple, Carotid Bruit Respiratory: Chest Non Tender, Lungs Clear, Normal Breath Sounds, No Accessory Muscle Use, No Respiratory Distress Cardiovascular: Regular Rate, Rhythm, No Edema, No Gallop, No JVD, No Murmur, Normal Peripheral Pulses Gastrointestinal: Normal Bowel Sounds, No Organomegaly, No Pulsatile Mass, Non Tender, Soft Back: Normal Inspection, No CVA Tenderness, No Vertebral Tenderness Extremity: Normal Capillary Refill, Normal Inspection, Normal Range of Motion, Non Tender, No Calf Tenderness, No Pedal Edema Neurologic/Psychiatric: Alert, Oriented x3, No Motor/Sensory Deficits (legs 4/5 strength), Normal Mood/Affect Skin: Normal Color, Warm/Dry Lymphatic: No Adenopathy Results/Procedures Lab Patient resulted labs reviewed. FIM Transfers Therapy Code Descriptions/Definitions Functional [place] Measure: 0=Not Assessed/NA 4=Minimal Assistance 1=Total Assistance 5=Supervision or Setup 2=Maximal Assistance 6=Modified [place] 3=Moderate Assistance 7=Complete IndependenceSCALE: Activities may be completed with or without assistive devices. 2-Ntkkzmeahe-dqpvfkf completes the activity by him/herself with no assistance from a helper. 5-Set-up or Clean-up Assistance-helper sets up or cleans up; patient completes activity. [place] assists only prior to or following the activity. 4-Supervision or Touching Assistance-helper provides verbal cues and/or touching/steadying and/or contact guard assistance as patient completes a ctivity. Assistance may be provided throughout the activity or intermittently. 3-Partial/Moderate Assistance-helper does LESS THAN HALF the effort. [place] lifts, holds or supports trunk or limbs, but provides less than half the effort. 2-Substantial/Maximal Assistance-helper does MORE THAN HALF the effort. [place] lifts or holds trunk or limbs and provides more than half the effort. 9-Rjzveknfg-ywynqv does ALL the effort. Patient does none of the effort to complete the activity. Or, the assistance of 2 or more helpers is required for the patient to complete the activity. If activity was not attempted, code reason: 7-Patient Refused. 9-Not Applicable-not attempted and the patient did not perform the activity before the current illness, exacerbation or injury. 10-Not Attempted due to Environmental Limitations-(lack of equipment, weather restraints, etc.). 88-Not Attempted due to Medical Conditions or Safety Concerns. Roll Left to Right (QC): 6 Sit to Lying (QC): 4 Sit to Stand (QC): 4 Chair/Qxd-ui-[place] Xfer(QC): 4 Car Transfer (QC): 4 Gait Training Does the Patient Walk?: Yes Distance: 10'x3 Walk 10 feet (QC): 4 Walk 50 ft with 2 Turns(QC): 88 Walk 150 ft (QC): 88 Walking 10ft/uneven surface-QC: 88 Gait Persons Needed: 1 Gait Assistive Device: Parallel Bars Wheelchair Training Does the Pt Use a Wheelchair?: Yes Distance: 150' Wheel 50 ft with 2 turns (QC): 4 Wheel 150 ft (QC): 4 Type of Wheelchair: Manual Stair Training 1 Step (curb) (QC): 88 4 Steps (QC): 88 12 Steps (QC): 88 Balance Picking up an Object (QC): 88 ADL-Treatment Eating (QC): 6 Oral Hygiene (QC): 5 Bathing Location: L Arm, R Arm, L Upper Leg, R Upper Leg, L Lower Leg (including foot), R Lower Leg (including foot), Chest, Abdomen, Perineal Area Shower/Bathe Self (QC): 3 Upper Body Dressing (QC): 5 Lower Body Dressing (QC): 3 On/Off Footwear (QC): 4 Toileting Hygiene (QC): 3 (Min assist in stance for balance while pt. cleanses self after toileting.) Toilet Transfer (QC): 3 (Min assist.) Assessment/Plan Assessment and Plan Assess & Plan/Chief Complaint Assessment: (1A) Debility with major fall risk requiring IRF (1) s/p Sepsis (2) Acute UTI completing PO abx now (3) Abdominal pain (4) Hypokalemia (5) Neurogenic bladder-self caths maintained Urology at [facility] regular basis (6) Headache (7) Diabetes mellitus (8) Unsteady gait with POTS (Postoral orthostasis tachycardia syndrome) (9) Physical debility (10) DVT prophylaxis (11) Low back pain chronic w/h/o lumbar spine surgery (12) DM (13) Vit B12 def Plan: Labs and IVF due to syncopal episode from exacerbation of POTS Maintain on home meds Permissive hypertension due to severity of her orthostasis when standing up Pain control Bowel regimen to maintain Intensive therapies Straight in/out caths prn Cefdinir completed Fall risk (1) Physical debility Status: Acute (2) Unsteady gait Status: Acute (3) POTS (postural orthostatic tachycardia syndrome) Status: Chronic (4) Acute UTI Status: Acute (5) History of UTI Status: Chronic (6) Weakness Status: Chronic (7) Hypokalemia Status: Acute (8) Diabetes mellitus Status: Chronic (9) Neurogenic bladder Status: Chronic (10) DVT prophylaxis Status: Acute (11) Headache Status: Resolved Resolution Date/Time: 08/07/19 @ 12:08 (12) Low back pain (13) GERD (gastroesophageal reflux disease) Status: Chronic (14) Neuropathy MALIKA VÁZQUEZ DO Aug 16, 2019 12:13
--- NOTE | 2019-08-16 13:38 | NUR ---
BLADDER SCAN DONE AND SHOWING 399 MLS. STRAIGHT CATH DONE. 275 MLS CLOUDY URINE IMMEDIATE RETURN. PATIENT TOLERATED WELL.
--- NOTE | 2019-08-16 15:48 | NUR ---
ASSISTED PATIENT TO THE BS FOR A BM. WHILE ON THE COMMODE, PATIENT STARTED LEANING TO THE RIGHT WITH BLANK STARE AND UNRESPONSIVE. THIS RN CALLED FOR HELP AND ASSISTED PATIENT BACK TO BED WITH THE HELP OF ANOTHER RN. PATIENT CAME TO SOON BACK IN BED. BP 159/77, HR 93. DR. VÁZQUEZ NOTIFIED OF ABOVE.
[2019-08-16 16:16] VITALS: BP 159/77
[2019-08-16 16:45] LABS: BASOPHILS % (AUTO) 0 % (0-10); EOSINOPHILS # (AUTO) 0.1 10^3/uL (0.0-0.3); EOSINOPHILS % (AUTO) 1 % (0-10); HEMATOCRIT 36 % (35-52); HEMOGLOBIN 11.5 G/DL (11.5-16.0); LYMPHOCYTES # (AUTO) 2.8 X 10^3 (1.0-4.0); LYMPHOCYTES % (AUTO) 22 % (12-44); MEAN CORPUSCULAR HEMOGLOBIN 30 PG (25-34); MEAN CORPUSCULAR HGB CONC 32 G/DL (32-36); MEAN CORPUSCULAR VOLUME 94 FL (80-99); MEAN PLATELET VOLUME 8.6 FL (7.4-10.4); MONOCYTES # (AUTO) 1.3 X 10^3 (0.0-1.0); MONOCYTES % (AUTO) 10 % (0-12); NEUTROPHILS # (AUTO) 8.4 X 10^3 (1.8-7.8); NEUTROPHILS % (AUTO) 66 % (42-75); PLATELET COUNT 522 10^3/uL (130-400); RED CELL DISTRIBUTION WIDTH 13.2 % (10.0-14.5); WHITE BLOOD COUNT 12.7 10^3/uL (4.3-11.0)
[2019-08-16] MEDS: NS IV 1000 ML 1,000 ML IV SCH (16:57)
[2019-08-16 16:58] LABS: ALBUMIN 3.6 GM/DL (3.2-4.5)
[2019-08-16 16:59] LABS: POTASSIUM 3.8 MMOL/L (3.6-5.0)
[2019-08-16 17:00] LABS: CALCIUM 9.7 MG/DL (8.5-10.1)
[2019-08-16 17:01] LABS: TOTAL PROTEIN 7.5 GM/DL (6.4-8.2)
[2019-08-16 17:03] LABS: BILIRUBIN,TOTAL 0.4 MG/DL (0.1-1.0)
[2019-08-16 17:05] VITALS: BP 143/83
[2019-08-16 17:05] LABS: CREATININE SERUM 1.11 MG/DL (0.60-1.30)
[2019-08-16] MEDS: ENOXAPARIN 40 MG/0.4 ML (LOVENOX) SYR SC SCH (17:25)
--- NOTE | 2019-08-16 17:36 | NUR ---
WBC- 12.7. DR. VÁZQUEZ NOTIFIED. ORDERS TO SEND URINE TO LAB FOR UA AFTER NEXT STRAIGHT CATH.
--- NOTE | 2019-08-16 18:29 | NUR ---
BLADDER SCAN DONE AND SHOWING 365 MLS. STRAIGHT CATH DONE. 275 MLS CLOUDY URINE IMMEDIATE RETURN. PATIENT TOLERATED WELL. URINE SENT DOWN TO LAB FOR UA.
--- NOTE | 2019-08-16 18:30 | NUR ---
PER DR. VÁZQUEZ- WILL REVIEW RESULTS FROM LATER. NO NEED TO CALL WITH RESULTS.
[2019-08-16 18:31] LABS: BILIRUBIN,URINE NEGATIVE (NEGATIVE); CLARITY,URINE CLOUDY; COLOR,URINE YELLOW; GLUCOSE, URINE (UA) NEGATIVE (NEGATIVE); KETONES,URINE 1+ (NEGATIVE); LEUKOCYTE ESTERASE ,URINE 3+ (NEGATIVE); NITRITE,URINE NEGATIVE (NEGATIVE); PROTEIN,URINE TRACE (NEGATIVE)
[2019-08-16 18:40] LABS: BACTERIA,URINE LARGE /HPF; WBC,URINE 50-100 /HPF
[2019-08-16] MEDS ORDERED: cefTRIAXone FOR IV USE 1,000 MG in WATER (STERILE) FOR INJECTION 10 ML IV ONE (19:00)
[2019-08-16] MEDS ORDERED: WATER (STERILE) FOR INJECTION 10 ML ONE (19:31)
[2019-08-16] MEDS ORDERED: cefTRIAXone 1,000 MG IV (ROCEPHIN) VIAL ONE (19:31)
[2019-08-16] MEDS: CALCIUM CARBONATE 500 MG (TUMS) TAB.CHEW PO PRN (22:10)
--- NOTE | 2019-08-16 22:42 | NUR ---
Patient straight cathed per patient request using sterile technique. 700 ml slightly cloudy, light yvonne urine obtained. Urine has a noticeable odor. Patient tolerated procedure well.
[2019-08-17 05:22] VITALS: BP 151/79
[2019-08-17] MEDS: LIPASE/AMYLASE/PROTEASE (PANCRELIPASE) 5,000 UNITS CAP PO SCH ×4 (06:18→20:39)
[2019-08-17] MEDS: metFORMIN 500 MG (GLUCOPHAGE) TAB PO SCH ×2 (06:18→17:05)
[2019-08-17] MEDS: NS IV 1000 ML 1,000 ML IV SCH ×2 (07:33→20:40)
[2019-08-17] MEDS: KCL 10 MEQ TAB (MICRO K) PO SCH ×3 (08:23→17:05)
[2019-08-17] MEDS: DULoxetine 30 MG (CYMBALTA) CAP PO SCH (08:23)
[2019-08-17] MEDS: FAMOTIDINE 20 MG (PEPCID) TABLET PO SCH (08:23)
[2019-08-17] MEDS: GABAPENTIN 100 MG (NEURONTIN) CAP PO SCH ×3 (08:24→20:39)
[2019-08-17] MEDS: MAGNESIUM OXIDE (MAG-OX)400 MG TAB PO SCH ×2 (08:24→17:05)
[2019-08-17] MEDS: COLESTIPOL 1 GM (COLESTID) TAB PO SCH ×2 (08:24→20:39)
[2019-08-17] MEDS: MIDODRINE 10 MG (PROAMATINE) TAB PO SCH ×3 (08:24→20:39)
[2019-08-17] MEDS: FLUDROCORTISONE 0.1 MG (FLORINEF) TAB PO SCH (08:24)
[2019-08-17] MEDS: NORTHERA PO SCH ×3 (08:25→17:06)
[2019-08-17] MEDS: FLUTICASONE NASAL SPRAY (FLONASE) 16 GM BTL NS SCH (08:26)
[2019-08-17] MEDS: DOCUSATE SODIUM 100 MG (COLACE) CAP PO SCH ×2 (08:26→19:46)
[2019-08-17] MEDS: polyethylene glycoL POWDER 17 GM (MIRALAX) PACK PO SCH ×2 (08:26→19:44)
[2019-08-17 08:27] VITALS: BP 113/56
[2019-08-17] MEDS: SENNA W/DOCUSATE (SENOKOT S) TABLET PO SCH ×2 (08:27→19:45)
--- NOTE | 2019-08-17 09:56 | NUR ---
STRAIGHT CATH DONE PER PATIENT'S REQUEST. 250 MLS CLOUDY URINE IMMEDIATE RETURN. PATIENT TOLERATED WELL.
--- NOTE | 2019-08-17 09:56 | NUR ---
KWAME WRAPS OVER MARITZA HOSE.
[2019-08-17] MEDS: CALCIUM CARBONATE 500 MG (TUMS) TAB.CHEW PO PRN ×2 (12:09→17:05)
--- NOTE | 2019-08-17 13:23 | PM&R Progress Note ---
Subjective HPI/CC On Admission Date Seen by Provider: Aug 17, 2019 Time Seen by Provider: 13:00 Subjective/Events-last exam Patient has orthostasis frequently and after rounds she had an episode of near syncope yesterday when she stood off commode prompting labs and giving IVF dx recurrent UTI She's simply not eating enough and seems to be slowly declining and I talked to her about that in-depth today Checked BP trends and noted labile status but she is on max treatment from specialists and she confirms that she is taking all of them as directed No pain reported Wants to go home soon and she is trying to get stronger in order to do that but she may be wheelchair bound and she can navigate at home pretty well in wheelchair BM large today POTS is a very severe condition and since she is so frail and weak and not eating well it exacerbates the condition I reviewed [facility] chart yesterday Reviewed therapy notes Checked meds and labs Conferred with regulatory product manager of Systems General: Fatigue Neurological: Weakness, Incoordination Focused Exam Lactate Level 08/16/19 16:35: Lactic Acid Level 0.88 Objective Exam Vital Signs Vital Signs Date Time Temp Pulse Resp B/P (MAP) Pulse Ox O2 Delivery O2 Flow Rate FiO2 08/17/19 10:02 Room Air 08/17/19 08:27 90 113/56 (75) 08/17/19 05:22 36.6 18 92 Capillary Refill : Less Than 3 Seconds General Appearance: No Apparent Distress, WD/WN, Chronically ill, Thin, Other (frail) HEENT: PERRL/EOMI, Normal ENT Inspection, Pharynx Normal Neck: Full Range of Motion, Normal Inspection, Non Tender, Supple, Carotid Bruit Respiratory: Chest Non Tender, Lungs Clear, Normal Breath Sounds, No Accessory Muscle Use, No Respiratory Distress Cardiovascular: Regular Rate, Rhythm, No Edema, No Gallop, No JVD, No Murmur, Normal Peripheral Pulses Gastrointestinal: Normal Bowel Sounds, No Organomegaly, No Pulsatile Mass, Non Tender, Soft Back: Normal Inspection, No CVA Tenderness, No Vertebral Tenderness Extremity: Normal Capillary Refill, Normal Inspection, Normal Range of Motion, Non Tender, No Calf Tenderness, No Pedal Edema Neurologic/Psychiatric: Alert, Oriented x3, No Motor/Sensory Deficits (legs 4/5 strength), Normal Mood/Affect Skin: Normal Color, Warm/Dry Lymphatic: No Adenopathy Results/Procedures Lab Laboratory Tests 08/16/19 16:35 Patient resulted labs reviewed. FIM Transfers Therapy Code Descriptions/Definitions Functional [place] Measure: 0=Not Assessed/NA 4=Minimal Assistance 1=Total Assistance 5=Supervision or Setup 2=Maximal Assistance 6=Modified [place] 3=Moderate Assistance 7=Complete IndependenceSCALE: Activities may be completed with or without assistive devices. 2-Qlyplsmowi-yattrqo completes the activity by him/herself with no assistance from a helper. 5-Set-up or Clean-up Assistance-helper sets up or cleans up; patient completes activity. [place] assists only prior to or following the activity. 4-Supervision or Touching Assistance-helper provides verbal cues and/or touching/steadying and/or contact guard assistance as patient completes activity. Assistance may be provided throughout the activity or intermittently. 3-Partial/Moderate Assistance-helper does LESS THAN HALF the effort. [place] lifts, holds or supports trunk or limbs, but provides less than half the effort. 2-Substantial/Maximal Assistance-helper does MORE THAN HALF the effort. [place] lifts or holds trunk or limbs and provides more than half the effort. 1-Uideqntwu-yrhixf does ALL the effort. Patient does none of the effort to complete the activity. Or, the assistance of 2 or more helpers is required for the patient to complete the activity. If activity was not attempted, code reason: 7-Patient Refused. 9-Not Applicable-not attempted and the patient did not perform the activity before the current illness, exacerbation or injury. 10-Not Attempted due to Environmental Limitations-(lack of equipment, weather restraints, etc.). 88-Not Attempted due to Medical Conditions or Safety Concerns. Roll Left to Right (QC): 6 Sit to Lying (QC): 4 Sit to Stand (QC): 4 Chair/Ckr-qq-Izidp Xfer(QC): 4 Car Transfer (QC): 4 Gait Training Does the Patient Walk?: Yes Distance: 10'x3 Walk 10 feet (QC): 4 Walk 50 ft with 2 Turns(QC): 88 Walk 150 ft (QC): 88 Walking 10ft/uneven surface-QC: 88 Gait Persons Needed: 1 Gait Assistive Device: Parallel Bars Wheelchair Training Does the Pt Use a Wheelchair?: Yes Distance: 150' Wheel 50 ft with 2 turns (QC): 4 Wheel 150 ft (QC): 4 Type of Wheelchair: Manual Stair Training 1 Step (curb) (QC): 88 4 Steps (QC): 88 12 Steps (QC): 88 Balance Picking up an Object (QC): 88 ADL-Treatment Eating (QC): 6 Oral Hygiene (QC): 5 Bathing Location: L Arm, R Arm, L Upper Leg, R Upper Leg, L Lower Leg (including foot), R Lower Leg (including foot), Chest, Abdomen, Perineal Area Shower/Bathe Self (QC): 3 Upper Body Dressing (QC): 5 Lower Body Dressing (QC): 3 On/Off Footwear (QC): 4 Toileting Hygiene (QC): 3 (Min assist in stance for balance while pt. cleanses self after toileting.) Toilet Transfer (QC): 3 (Min assist.) Assessment/Plan Assessment and Plan Assess & Plan/Chief Complaint Assessment: (1A) Debility with major fall risk requiring IRF (1) s/p Sepsis (2) Acute UTI completing PO abx now (3) Abdominal pain (4) Hypokalemia (5) Neurogenic bladder-self caths maintained Urology at [facility] regular basis (6) Headache (7) Diabetes mellitus (8) Unsteady gait with POTS (Postoral orthostasis tachycardia syndrome) (9) Physical debility (10) DVT prophylaxis (11) Low back pain chronic w/h/o lumbar spine surgery (12) DM (13) Vit B12 def Plan: Labs and IVF due to syncopal episode from exacerbation of POTS Maintain on home meds Permissive hypertension due to severity of her orthostasis when standing up Pain control Bowel regimen to maintain Intensive therapies Straight in/out caths prn Rocephin empirically await UCx Fall risk (1) Physical debility Status: Acute (2) Unsteady gait Status: Acute (3) POTS (postural orthostatic tachycardia syndrome) Status: Chronic (4) Acute UTI Status: Acute (5) History of UTI Status: Chronic (6) Weakness Status: Chronic (7) Hypokalemia Status: Acute (8) Diabetes mellitus Status: Chronic (9) Neurogenic bladder Status: Chronic (10) DVT prophylaxis Status: Acute (11) Headache Status: Resolved Resolution Date/Time: 08/07/19 @ 12:08 (12) Low back pain (13) GERD (gastroesophageal reflux disease) Status: Chronic (14) Neuropathy MALIKA VÁZQUEZ DO Aug 17, 2019 13:23
[2019-08-17] MEDS: ENOXAPARIN 40 MG/0.4 ML (LOVENOX) SYR SC SCH (17:07)
[2019-08-17 17:11] VITALS: BP 136/78
[2019-08-17] MEDS ORDERED: cefTRIAXone FOR IV USE 1,000 MG in WATER (STERILE) FOR INJECTION 10 ML IV SCH (18:00)
[2019-08-17] MEDS: ONDANSETRON 4 MG (ZOFRAN) ORAL DISSOLVE TAB PO PRN (18:28)
--- NOTE | 2019-08-17 22:00 | NUR ---
Patient straight cathed per patient request using sterile technique. 450 ml slightly cloudy, light yvonne urine obtained. Patient tolerated procedure well.
--- NOTE | 2019-08-18 02:45 | NUR ---
Patient straight cathed per patient request using sterile technique. 450 ml slightly cloudy, light yvonne urine obtained. Patient tolerated procedure well.
[2019-08-18 05:16] VITALS: BP 145/82
[2019-08-18 06:12] LABS: BASOPHILS % (AUTO) 0 % (0-10); EOSINOPHILS % (AUTO) 0 % (0-10); HEMATOCRIT 38 % (35-52); LYMPHOCYTES # (AUTO) 2.3 X 10^3 (1.0-4.0); LYMPHOCYTES % (AUTO) 19 % (12-44); MEAN CORPUSCULAR HEMOGLOBIN 30 PG (25-34); MEAN CORPUSCULAR HGB CONC 32 G/DL (32-36); MEAN CORPUSCULAR VOLUME 93 FL (80-99); MEAN PLATELET VOLUME 8.9 FL (7.4-10.4); MONOCYTES # (AUTO) 1.2 X 10^3 (0.0-1.0); MONOCYTES % (AUTO) 10 % (0-12); NEUTROPHILS # (AUTO) 8.3 X 10^3 (1.8-7.8); NEUTROPHILS % (AUTO) 70 % (42-75); PLATELET COUNT 440 10^3/uL (130-400); RED CELL DISTRIBUTION WIDTH 12.7 % (10.0-14.5); WHITE BLOOD COUNT 11.8 10^3/uL (4.3-11.0)
[2019-08-18 06:32] LABS: ALBUMIN 3.5 GM/DL (3.2-4.5); CHLORIDE 95 MMOL/L (98-107); SODIUM 137 MMOL/L (135-145)
[2019-08-18 06:33] LABS: CALCIUM 9.4 MG/DL (8.5-10.1)
[2019-08-18 06:34] LABS: GLUCOSE 65 MG/DL (70-105); TOTAL PROTEIN 7.2 GM/DL (6.4-8.2)
[2019-08-18 06:35] LABS: CARBON DIOXIDE 28 MMOL/L (21-32)
[2019-08-18 06:36] LABS: BILIRUBIN,TOTAL 0.4 MG/DL (0.1-1.0)
[2019-08-18] MEDS: metFORMIN 500 MG (GLUCOPHAGE) TAB PO SCH ×2 (06:37→17:32)
[2019-08-18] MEDS: LIPASE/AMYLASE/PROTEASE (PANCRELIPASE) 5,000 UNITS CAP PO SCH ×4 (06:37→20:34)
[2019-08-18 06:38] LABS: ALKALINE PHOSPHATASE 68 U/L (40-136); CREATININE SERUM 0.82 MG/DL (0.60-1.30); GFR ESTIMATED > 60
[2019-08-18 06:39] LABS: BUN/CREATININE RATIO 10
[2019-08-18 06:41] LABS: ALANINE AMINOTRANSFERASE 12 U/L (0-55)
--- NOTE | 2019-08-18 06:59 | NUR ---
Notified Dr. Garg that IV was leaking. Orders to dc IV fluids and take IV out.
--- NOTE | 2019-08-18 09:29 | PM&R Progress Note ---
Subjective HPI/CC On Admission Date Seen by Provider: Aug 18, 2019 Time Seen by Provider: 09:30 Subjective/Events-last exam Pt having significant pre-syncope episodes due to POTS. Willing to see a veneer jointer offbearer here so placed on telemetry, ordered EKG and spoke with cardiology. Will try to do everything we can to modify these syncope episodes. She sees cardiology at [facility] on a regular basis who manages this condition. Eating Cheerios currently and seems to be trying to eat more to help her nutrition status. Cefdinir will be initiated for UTI, seven full days since this is recurrent. Reviewed therapy notes Checked meds and labs Conferred with sr. director product management of Systems General: Fatigue Gastrointestinal: Nausea Neurological: Weakness, Incoordination Focused Exam Lactate Level 08/16/19 16:35: Lactic Acid Level 0.88 Objective Exam Vital Signs Vital Signs Date Time Temp Pulse Resp B/P (MAP) Pulse Ox O2 Delivery O2 Flow Rate FiO2 08/18/19 19:00 84 08/18/19 17:35 37.2 18 166/80 (108) 93 Room Air Capillary Refill : Less Than 3 Seconds General Appearance: No Apparent Distress, WD/WN, Chronically ill, Thin, Other (frail) HEENT: PERRL/EOMI, Normal ENT Inspection, Pharynx Normal Neck: Full Range of Motion, Normal Inspection, Non Tender, Supple, Carotid Bruit Respiratory: Chest Non Tender, Lungs Clear, Normal Breath Sounds, No Accessory Muscle Use, No Respiratory Distress Cardiovascular: Regular Rate, Rhythm, No Edema, No Gallop, No JVD, No Murmur, Normal Peripheral Pulses Gastrointestinal: Normal Bowel Sounds, No Organomegaly, No Pulsatile Mass, Non Tender, Soft Back: Normal Inspection, No CVA Tenderness, No Vertebral Tenderness Extremity: Normal Capillary Refill, Normal Inspection, Normal Range of Motion, Non Tender, No Calf Tenderness, No Pedal Edema Neurologic/Psychiatric: Alert, Oriented x3, No Motor/Sensory Deficits (legs 4/5 strength), Normal Mood/Affect Skin: Normal Color, Warm/Dry Lymphatic: No Adenopathy Results/Procedures Lab Laboratory Tests 08/18/19 05:40 Patient resulted labs reviewed. FIM Transfers Therapy Code Descriptions/Definitions Functional [place] Measure: 0=Not Assessed/NA 4=Minimal Assistance 1=Total Assistance 5=Supervision or Setup 2=Maximal Assistance 6=Modified [place] 3=Moderate Assistance 7=Complete IndependenceSCALE: Activities may be completed with or without assistive devices. 0-Mzvtvsfjun-hkbmjtz completes the activity by him/herself with no assistance from a helper. 5-Set-up or Clean-up Assistance-helper sets up or cleans up; patient completes activity. [place] assists only prior to or following the activity. 4-Supervision or Touching Assistance-helper provides verbal cues and/or touching/steadying and/or contact guard assistance as patient completes activity. Assistance may be provided throughout the activity or intermittently. 3-Partial/Moderate Assistance-helper does LESS THAN HALF the effort. [place] lifts, holds or supports trunk or limbs, but provides less than half the effort. 2-Substantial/Maximal Assistance-helper does MORE THAN HALF the effort. [place] lifts or holds trunk or limbs and provides more than half the effort. 4-Oymqqanoc-mmvgmz does ALL the effort. Patient does none of the effort to complete the activity. Or, the assistance of 2 or more helpers is required for the patient to complete the activity. If activity was not attempted, code reason: 7-Patient Refused. 9-Not Applicable-not attempted and the patient did not perform the activity before the current illness, exacerbation or injury. 10-Not Attempted due to Environmental Limitations-(lack of equipment, weather restraints, etc.). 88-Not Attempted due to Medical Conditions or Safety Concerns. Roll Left to Right (QC): 6 Sit to Lying (QC): 4 Sit to Stand (QC): 4 Chair/Gtn-hr-Ffqnb Xfer(QC): 4 Car Transfer (QC): 4 Gait Training Does the Patient Walk?: Yes Distance: 10'x3 Walk 10 feet (QC): 4 Walk 50 ft with 2 Turns(QC): 88 Walk 150 ft (QC): 88 Walking 10ft/uneven surface-QC: 88 Gait Persons Needed: 1 Gait Assistive Device: Parallel Bars Wheelchair Training Does the Pt Use a Wheelchair?: Yes Distance: 150' Wheel 50 ft with 2 turns (QC): 4 Wheel 150 ft (QC): 4 Type of Wheelchair: Manual Stair Training 1 Step (curb) (QC): 88 4 Steps (QC): 88 12 Steps (QC): 88 Balance Picking up an Object (QC): 88 ADL-Treatment Eating (QC): 6 Oral Hygiene (QC): 5 Bathing Location: L Arm, R Arm, L Upper Leg, R Upper Leg, L Lower Leg ( including foot), R Lower Leg (including foot), Chest, Abdomen, Perineal Area Shower/Bathe Self (QC): 3 Upper Body Dressing (QC): 5 Lower Body Dressing (QC): 3 On/Off Footwear (QC): 4 Toileting Hygiene (QC): 3 (Min assist in stance for balance while pt. cleanses self after toileting.) Toilet Transfer (QC): 3 (Min assist.) Assessment/Plan Assessment and Plan Assess & Plan/Chief Complaint Assessment: (1A) Debility with major fall risk requiring IRF (1) s/p Sepsis 2 weeks ago on med-surg (2) Acute UTI completing PO abx now after IV Rocephin started on Sunday (3) Abdominal pain (4) Hypokalemia (5) Neurogenic bladder-self caths maintained Urology at [facility] regular basis (6) Headache (7) Diabetes mellitus (8) Unsteady gait with POTS (Postoral orthostasis tachycardia syndrome) (9) Physical debility (10) DVT prophylaxis (11) Low back pain chronic w/h/o lumbar spine surgery (12) DM (13) Vit B12 def Plan: Labs and IVF due to syncopal episode from exacerbation of POTS Maintain on home meds Permissive hypertension due to severity of her orthostasis when standing up Pain control Bowel regimen to maintain Intensive therapies Straight in/out caths prn Omnicef for full 7 days since UTI recurrent Cardiology consultation is appreciated Fall risk (1) Physical debility Status: Acute (2) Unsteady gait Status: Acute (3) POTS (postural orthostatic tachycardia syndrome) Status: Chronic (4) Acute UTI Status: Acute (5) History of UTI Status: Chronic (6) Weakness Status: Chronic (7) Hypokalemia Status: Acute (8) Diabetes mellitus Status: Chronic (9) Neurogenic bladder Status: Chronic (10) DVT prophylaxis Status: Acute (11) Headache Status: Resolved Resolution Date/Time: 08/07/19 @ 12:08 (12) Low back pain (13) GERD (gastroesophageal reflux disease) Status: Chronic (14) Neuropathy MALIKA VÁZQUEZ DO Aug 18, 2019 09:29
--- NOTE | 2019-08-18 09:57 | Physical Therapy Daily Note ---
PT Daily Note-Current Subjective Pt. in bed with eyes closed and states she feels horrible this morning . Has been so light headed as if she will pass out and has had poor tolerance for attempts at sitting edge of bed . Pt. agrees to exercises and TRFing to recliner as tolerated Pain Location: No Pain Reported Mental Status Patient Orientation: Person, Place, Time, Situation Transfers SCALE: Activities may be completed with or without assistive devices. 2-Hshziovdme-fhpiqgh completes the activity by him/herself with no assistance from a helper. 5-Set-up or Clean-up Assistance-helper sets up or cleans up; patient completes activity. [place] assists only prior to or following the activity. 4-Supervision or Touching Assistance-helper provides verbal cues and/or touching/steadying and/or contact guard assistance as patient completes activity. Assistance may be provided throughout the activity or intermittently. 3-Partial/Moderate Assistance-helper does LESS THAN HALF the effort. [place] lifts, holds or supports trunk or limbs, but provides less than half the effort. 2-Substantial/Maximal Assistance-helper does MORE THAN HALF the effort. [place] lifts or holds trunk or limbs and provides more than half the effort. 4-Wbyrxfkke-qsppnt does ALL the effort. Patient does none of the effort to complete the activity. Or, the assistance of 2 or more helpers is required for the patient to complete the activity. If activity was not attempted, code reason: 7-Patient Refused. 9-Not Applicable-not attempted and the patient did not perform the activity before the current illness, exacerbation or injury. 10-Not Attempted due to Environmental Limitations-(lack of equipment, weather restraints, etc.). 88-Not Attempted due to Medical Conditions or Safety Concerns. Roll Left & Right (QC): 5 Sit to Lying (QC): 5 Lying to Sitting/Side of Bed(Q: 5 Sit to Stand (QC): 4 Chair/Ulk-tg-Ciovp Xfer(QC): 3 Weight Bearing Right Lower Extremity: Right Full Weight Bearing Left Lower Extremity: Left Full Weight Bearing Gait Training TRF steps with dance fashion type TRF, pt. instantly feeling light headed and flopped in to chair , BP immediately taken and was 88/54, HR 86 Exercises Seated Therapy Exercises: Ankle pumps, Sit to stand, Long arc quads, Hip flexion, Hip abd/add Seated Reps: 15 (x2) Treatments several trial of sit to stand with BP monitored , sitting at EOB: 111/69 HR 85, 1` stood to Pivot TRF to chair with immediate c/o dizziness , upon sitting BP 88/54, HR 86 after 1 min BP 95/60, HR 86, after 2.5 min BP 107/70 pt. sat up in recliner for breakfast and encouraged to partake Assessment Current Status: Fair Progress POTS sxs PT Short Term Goals Short Term Goals Time Frame: Aug 18, 2019 Roll Left & Right: 6 Sit to lyin Lying to sitting on side of be: 6 Sit to stand: 4 Chair/ked-yi-cjmed transfer: 4 Walk 10 feet: 4 Walk 50 feet with two turns: 4 PT Mcc Goals Mcc Goals PT Economic Specialist Goals Time Frame: September 01, 2019 Roll Left & Right (QC): 6 Sit to Lying (QC): 6 Lying-Sitting on Side/Bed(QC): 6 Sit to Stand (QC): 6 Chair/Xsu-ml-Ravea Xfer(QC): 6 Toilet Transfer (QC): 6 Car Transfer (QC): 6 Does the Patient Walk: No and Walking Goal IS indicated Walk 10 feet (QC): 6 Walk 50ft with 2 Turns (QC): 6 Walk 150 ft (QC): 6 Walking 10ft on Uneven Surface: 6 1 Step (curb) (QC): 4 4 Steps (QC): 4 12 Steps (QC): 88 Picking up an Object (QC): 88 Wheel 50 feet with 2 turns (QC: 9 Wheel 150 feet: 9 PT Plan Treatment/Plan Treatment Plan: Continue Plan of Care Treatment Plan: Bed Mobility, Education, Functional Activity [place], Functional Strength, Group Therapy, Gait, Safety, Therapeutic Exercise, Transfers Treatment Duration: September 01, 2019 Frequency: At least 5 of 7 days/Wk (IRF) Estimated Hrs Per Day: 1.5 hours per day Patient and/or Family Agrees t: Yes Safety Risks/Education Patient Education: Transfer Techniques, Correct Positioning, Disease Process, Safety Issues Teaching Recipient: Patient Teaching Methods: Demonstration, Discussion Response to Teaching: Verbalize Understanding, Return Demonstration, Reinforcement Needed Time/GCodes Time In: 900 Time Out: 1000 Total Billed Treatment Time: 60 Total Billed Treatment 1,EX20m,FA40m ZARA ARNDT CHICKEN STUFFER Aug 18, 2019 09:57
[2019-08-18] MEDS: GABAPENTIN 100 MG (NEURONTIN) CAP PO SCH ×3 (09:59→20:33)
[2019-08-18] MEDS: KCL 10 MEQ TAB (MICRO K) PO SCH ×3 (10:00→17:32)
[2019-08-18] MEDS: DULoxetine 30 MG (CYMBALTA) CAP PO SCH (10:00)
[2019-08-18] MEDS: ONDANSETRON 4 MG (ZOFRAN) ORAL DISSOLVE TAB PO PRN (10:00)
[2019-08-18] MEDS: SENNA W/DOCUSATE (SENOKOT S) TABLET PO SCH ×2 (10:00→20:36)
[2019-08-18] MEDS: MAGNESIUM OXIDE (MAG-OX)400 MG TAB PO SCH ×2 (10:00→17:31)
[2019-08-18] MEDS: FLUDROCORTISONE 0.1 MG (FLORINEF) TAB PO SCH (10:00)
[2019-08-18] MEDS: MIDODRINE 10 MG (PROAMATINE) TAB PO SCH ×3 (10:00→20:32)
[2019-08-18] MEDS: FAMOTIDINE 20 MG (PEPCID) TABLET PO SCH (10:01)
[2019-08-18] MEDS: DOCUSATE SODIUM 100 MG (COLACE) CAP PO SCH ×2 (10:01→20:34)
[2019-08-18] MEDS: FLUTICASONE NASAL SPRAY (FLONASE) 16 GM BTL NS SCH ×2 (10:09→10:11)
[2019-08-18] MEDS: NORTHERA PO SCH ×3 (10:10→17:42)
[2019-08-18] MEDS: polyethylene glycoL POWDER 17 GM (MIRALAX) PACK PO SCH ×2 (10:15→20:36)
[2019-08-18] MEDS: CEFDINIR 300 MG (OMNICEF) CAP PO SCH ×2 (10:25→20:33)
[2019-08-18] MEDS: COLESTIPOL 1 GM (COLESTID) TAB PO SCH ×2 (10:26→20:33)
--- NOTE | 2019-08-18 10:35 | Occupational Ther Daily Note ---
OT Current Status-Daily Note Subjective Pt seen in the am at 0800, pt expresses nausea/ lightheadedness. Pt given 15 min and nursing notified. Nursing states pt was "limp" this am and requires assist back to bed. Pt seen from [id number]. BP measures taken throughout. Mental Status/Objective Patient Orientation: Person, Place, Time, Situation, Normal For Age ADL-Treatment Therapy Code Descriptions/Definitions Functional [place] Measure: 0=Not Assessed/NA 4=Minimal Assistance 1=Total Assistance 5=Supervision or Setup 2=Maximal Assistance 6=Modified [place] 3=Moderate Assistance 7=Complete IndependenceSCALE: Activities may be completed with or without assistive devices. 3-Xnewmdnbqf-oxdikrh completes the activity by him/herself with no assistance from a helper. 5-Set-up or Clean-up Assistance-helper sets up or cleans up; patient completes activity. [place] assists only prior to or following the activity. 4-Supervision or Touching Assistance-helper provides verbal cues and/or touching/steadying and/or contact guard assistance as patient completes activity. Assistance may be provided throughout the activity or intermittently. 3-Partial/Moderate Assistance-helper does LESS THAN HALF the effort. [place] lifts, holds or supports trunk or limbs, but provides less than half the effort. 2-Substantial/Maximal Assistance-helper does MORE THAN HALF the effort. [place] lifts or holds trunk or limbs and provides more than half the effort. 2-Gtwuomqhk-qnjemw does ALL the effort. Patient does none of the effort to complete the activity. Or, the assistance of 2 or more helpers is required for the patient to complete the activity. If activity was not attempted, code reason: 7-Patient Refused. 9-Not Applicable-not attempted and the patient did not perform the activity before the current illness, exacerbation or injury. 10-Not Attempted due to Environmental Limitations-(lack of equipment, weather restraints, etc.). 88-Not Attempted due to Medical Conditions or Safety Concerns. Eating (QC): 6 Bathing Location: L Arm, R Arm, Chest, Abdomen Shower/Bathe Self (QC): 4 (CGA EOB) Upper Body Dressing (QC): 4 (CGA EOB intermittently) Other Treatment [id number] (45): Pt continues to c/o nausea, but agrees to "try" therapy. Pt's BP assessed at 30* reclined in bed: 119/62; 48*: 117/62. Pt completes hair washing with shower cap in this position. Pt comes to sit EOB: 97/57 and states dizziness/ "fog". Pt leans on raised HOB. Pt attempts again, sitting EOB with 90* sit: 106/60. Pt completes UB washing/ dressing EOB. Pt returns to bed with HOB elevated to ~60*, pt educated on maintaining upright position through day. Pt agrees, begins eating with IND. All needs met, call light in reach. Education OT Patient Education: Correct positioning, Modified ADL techniques, Purpose of tx/functional activities, Safety issues Teaching Recipient: Patient Teaching Methods: Demonstration, Discussion Response to Teaching: Verbalize Understanding, Unable to Return Demonstration, Return Demonstration, Reinforcement Needed OT Short Term Goals Short Term Goals Time Frame: Aug 18, 2019 Upper body dressin Lower body dressin Putting on/taking off footwear: 4 OT [place] Crm Developer Goals Fdc Goals Time Frame: August 25, 2019 Eating (QC): 6 Oral Hygiene (QC): 6 Toileting Hygiene (QC): 6 Shower/Bathe Self (QC): 4 Upper Body Dressing (QC): 6 Lower Body Dressing (QC): 6 On/Off Footwear (QC): 6 Additional Goals: 1-Demonstrate ADL Tasks, 2-Verbalize Understanding, 3-ImproveStrength/[place] 1=Demonstrate adherence to instructed precautions during ADL tasks. 2=Patient will verbalize/demonstrate understanding of assistive devices/modifications for ADL. 3=Patient will improve strength/tolerance for activity to enable patient to perform ADL's. OT Education/Plan Problem List/Assessment Assessment: Decreased Activ Tolerance, Decreased UE Strength, Impaired Funct Balance, Impaired I ADL's, Impaired Self-Care Skills Discharge Recommendations Plan/Recommendations: Continue POC Treatment Plan/Plan of Care Patient would benefit from OT for education, treatment and training to promote independence in ADL's, mobility, safety and/or upper extremity function for ADL's. Plan of Care: ADL Retraining, Functional Mobility, Group Exercise/Act as Ind, UE Funct Exercise/Act Treatment Duration: August 25, 2019 Frequency: At least 5 of 7 days/Wk (IRF) Estimated Hrs Per Day: 1.5 hours per day Agreement: Yes Rehab Potential: Guarded Time/GCodes Start Time: 08:15 Stop Time: 09:00 Total Time Billed (hr/min): 45 Billed Treatment Time [id number]: 1, ADL 3 (45) CATALINA DE LEON OTR Aug 18, 2019 10:34
--- NOTE | 2019-08-18 11:16 | Consultation-Cardiology ---
HPI-Cardiology Cardiology Consultation Date of Consultation 08/18/19 Date of Admission Time Seen by Provider: 09:30 Indication: POTS HPI Patient is a 69 year old female with history of POTS, HLP. Currently in inpatient rehab for recurrent UTI, generalized weakness. Reports episodes of dizziness and lightheadedness. Patient reports this is an ongoing issue for her and follows with cardiology in [place]. Reports episode of syncope x 1 last week, but states improvement of symptoms since restarting her home medications. Denies any chest pain or dyspnea. No further complaints at this time. 69 years old lady with history of pots, had history of syncope last week, had an episode of dizziness this morning, multiple medication treatment. Currently receiving rehabilitation for generalized weakness and debility after recurrent UTI. Home Medications & Allergies Allergies: Coded Allergies: amoxicillin (Verified Allergy, Unknown, 05/27/18) clavulanic acid (Verified Allergy, Unknown, 05/27/18) moxifloxacin (Verified Allergy, Unknown, 05/27/18) sulfamethoxazole (Verified Allergy, Unknown, 05/27/18) trimethoprim (Verified Allergy, Unknown, 05/27/18) Home Medication List Reviewed: Yes RIX-Thjnmf-Nkyeze Hx Patient Social History Marital Status: Employed/Student: retired Alcohol Use: Denies Use Recreational Drug Use: No Smoking Status: Never a Smoker Type Used: Cigarettes 2nd Hand Smoke Exposure: No Recent Foreign Travel: No Recent Infectious Disease Expo: No Recent Hopitalizations: No Physical Abuse Screen: No Sexual Abuse: No Immunizations Up To Date Date of Pneumonia Vaccine: Aug 09, 2016 Date of Influenza Vaccine: May 27, 2018 Past Medical History POTS, HLP Family Medical History Significant Family History: Diabetes Family History: Completed stroke 19 MOTHER (cva) G8 SISTER (cva) Diabetes mellitus 19 FATHER (neurpathy) Headache disorder 19 MOTHER (migraines) G8 BROTHER (migraines) G8 SISTER (migraines) Neoplasm 19 MOTHER (cancer) Review of Systems-General Review of Systems Constitutional: see HPI, dizziness, malaise, weakness EENTM: see HPI, no symptoms reported; No blurred vision, No double vision, No vision loss Respiratory: no symptoms reported, see HPI; No cough, No dyspnea on exertion Cardiovascular: no symptoms reported, see HPI; No chest pain, No edema, No Hx of Intervention, No palpitations; syncope; No vascular heart diseas Gastrointestinal: constipation Genitourinary: decreased output Musculoskeletal: back pain, joint pain Skin: no symptoms reported Psychiatric/Neurological: Anxiety, Depressed All Other Systems Reviewed Negative Unless Noted: Yes Reviewed Test Results Reviewed Test Results Lab Laboratory Tests 08/18/19 05:26: Glucometer 79 08/18/19 05:40: White Blood Count 11.8H, Red Blood Count 4.06L, Hemoglobin 12.0, Hematocrit 38, Mean Corpuscular Volume 93, Mean Corpuscular Hemoglobin 30, Mean Corpuscular Hemoglobin Concent 32, Red Cell Distribution Width 12.7, Platelet Count 440H, Mean Platelet Volume 8.9, Neutrophils (%) (Auto) 70, Lymphocytes (%) (Auto) 19, Monocytes (%) (Auto) 10, Eosinophils (%) (Auto) 0, Basophils (%) (Auto) 0, Neutrophils # (Auto) 8.3H, Lymphocytes # (Auto) 2.3, Monocytes # (Auto) 1.2H, Eosinophils # (Auto) 0.0, Basophils # (Auto) 0.0, Sodium Level 137, Potassium Level 4.0, Chloride Level 95L, Carbon Dioxide Level 28, Anion Gap 14, Blood Urea Nitrogen 8, Creatinine 0.82, Estimat Glomerular Filtration Rate > 60, BUN/Creatinine Ratio 10, Glucose Level 65L, Calcium Level 9.4, Corrected Calcium 9.8, Total Bilirubin 0.4, Aspartate Amino Transf (AST/SGOT) 25, Alanine Amino transferase (ALT/SGPT) 12, Alkaline Phosphatase 68, Total Protein 7.2, Albumin 3.5 Microbiology 08/16/19 Urine Culture - Preliminary, Resulted Enterobacter cloacae complex Physical Exam Physical Exam Vital Signs Vital Signs - First Documented 08/12/19 05:51 Temp 35.9 Pulse 71 Resp 16 B/P (MAP) 135/80 (98) Pulse Ox 71 O2 Delivery Room Air Capillary Refill : Less Than 3 Seconds Height, Weight, BMI Height: 5'2.00" Weight: 144lbs. 0.9oz. 65.937287dy; 23.39 BMI Method: General Appearance: No Apparent Distress, WD/WN, Chronically ill, Thin, Other (frail) Eyes: Bilateral Eye Normal Inspection, Bilateral Eye PERRL HEENT: PERRL/EOMI, Normal ENT Inspection, Pharynx Normal Neck: Full Range of Motion, Normal Inspection, Non Tender, Supple, Carotid Bruit Respiratory: Chest Non Tender, Lungs Clear, Normal Breath Sounds, No Accessory Muscle Use, No Respiratory Distress Cardiovascular: Regular Rate, Rhythm, No Edema, No Gallop, No JVD, No Murmur, Normal Peripheral Pulses Gastrointestinal: Normal Bowel Sounds, No Organomegaly, No Pulsatile Mass, Non Tender, Soft Back: Normal Inspection, No CVA Tenderness, No Vertebral Tenderness Extremity: Normal Capillary Refill, Normal Inspection, Normal Range of Motion, Non Tender, No Calf Tenderness, No Pedal Edema Neurologic/Psychiatric: Alert, Oriented x3, No Motor/Sensory Deficits (legs 4/5 strength), Normal Mood/Affect Skin: Normal Color, Warm/Dry Lymphatic: No Adenopathy A/P-Cardiology Admission Diagnosis POTS Recurrent UTI Generalized weakness HLP Assessment/Plan POTS- patient follows with cardiology at [facility], reporting recent workup done there. I will try to obtain a copy for our records. Currently maintained on Florinef and Midodrine. Continue to monitor. Discussed staying hydrated. Recurrent UTI- continue on antibiotic, continue to monitor. Generalized weakness, continue with PT/OT HLP, continue to monitor as outpatient DM, management per medical services. Thank you for allowing us to participate in the management of Ms. Galeano. This is Heydi Zepeda PA-C, as a scribe for Dr. Dubois. Patient was seen and evaluated with Heydi, examination performed, management plan was discussed, agree with the current scribed note, I made few changes to the note using Italic font In summary she is a 69-year-old lady with history of pots and multiple syncope, had orthostatic dizziness, multiple medication at this time, start to have the symptoms about a year ago Agree with the current use of medication, aggressive hydration and MARITZA hose No other changes are recommended Clinical Quality Measures DVT/VTE Risk/Contraindication: Risk Factor Score Per Nursin RFS Level Per Nursing on Admit: 4+=Very High HEYDI FREED Aug 18, 2019 11:16 ISRAEL DUBOIS MD Aug 18, 2019 13:14
--- NOTE | 2019-08-18 13:45 | NUR ---
CALL TO DIETARY, NOTIFIED THAT PT STATES THAT SHE WON'T BE DRINKING ANY MILK PRODUCTS LIKE THE GLUCERNA OR ENSURE, "MAKES ME GAG". SPOKE TO PT ABOUT OTHER OPTIONS. PT STATED THAT SHE WOULD TRY THE PROTEIN JELLO.
--- NOTE | 2019-08-18 14:39 | Occupational Ther Daily Note ---
OT Current Status-Daily Note Subjective Pt. reports that she is tired. Appearance Pt. agrees to work on LE bathing/dressing this afternoon. Mental Status/Objective Patient Orientation: Person, Place ADL-Treatment Therapy Code Descriptions/Definitions Functional [place] Measure: 0=Not Assessed/NA 4=Minimal Assistance 1=Total Assistance 5=Supervision or Setup 2=Maximal Assistance 6=Modified [place] 3=Moderate Assistance 7=Complete IndependenceSCALE: Activities may be completed with or without assistive devices. 6-Nauhjdznes-rxrdkjw completes the activity by him/herself with no assistance from a helper. 5-Set-up or Clean-up Assistance-helper sets up or cleans up; patient completes activity. [place] assists only prior to or following the activity. 4-Supervision or Touching Assistance-helper provides verbal cues and/or touching/steadying and/or contact guard assistance as patient completes activity. Assistance may be provided throughout the activity or intermittently. 3-Partial/Moderate Assistance-helper does LESS THAN HALF the effort. [place] lif ts, holds or supports trunk or limbs, but provides less than half the effort. 2-Substantial/Maximal Assistance-helper does MORE THAN HALF the effort. [place] lifts or holds trunk or limbs and provides more than half the effort. 1-Fwdzmzyfn-vcghtk does ALL the effort. Patient does none of the effort to complete the activity. Or, the assistance of 2 or more helpers is required for the patient to complete the activity. If activity was not attempted, code reason: 7-Patient Refused. 9-Not Applicable-not attempted and the patient did not perform the activity before the current illness, exacerbation or injury. 10-Not Attempted due to Environmental Limitations-(lack of equipment, weather restraints, etc.). 88-Not Attempted due to Medical Conditions or Safety Concerns. Lower Body Dressing (QC): 3 (Min assist in stance to doff/don pants over hips.) On/Off Footwear: 4 (CGA while seated on side of bed to doff/don slipper socks.) Pt. agrees to work on LE ADLs. BP taken in supine position to begin with. It was 137/72. Pt. transferred supine-sit with CGA. Sitting BP was 119/57. Increased time required to complete tasks. Pt. stood at bedside with Min assist to doff pants over hips. Pt. required CGA in stance to bathe remedios area. Sat to doff over feet. Pt. able to doff slipper socks seated, and then OT doffed KWAME wrap bandages and MARITZA hose. Pt. able to wash feet and legs. OT re-applied MARITZA hose and bandages. Pt. able to don pants over feet, as well as socks. Required assist to stand and don over hips. Pt. verbalizes that she is tired and requires rest breaks. Pt. verbalizes that she does not have much understanding of her condition, (POTS), so OT provided education regarding this. Pt. verbalizes understanding. Transferred sit-supine with SBA. Increased time to position self. All needs met. Education OT Patient Education: Correct positioning, Modified ADL techniques, Progress toward Goal/Update tx plan, Purpose of tx/functional activities, Reviewed precautions, Rehab process, Transfer techniques Teaching Recipient: Patient Teaching Methods: Demonstration, Discussion Response to Teaching: Verbalize Understanding, Return Demonstration OT Short Term Goals Short Term Goals Time Frame: Aug 18, 2019 Upper body dressin Lower body dressin Putting on/taking off footwear: 4 OT Senior Care Goals Senior Care Goals Time Frame: August 25, 2019 Eating (QC): 6 Oral Hygiene (QC): 6 Toileting Hygiene (QC): 6 Shower/Bathe Self (QC): 4 Upper Body Dressing (QC): 6 Lower Body Dressing (QC): 6 On/Off Footwear (QC): 6 Additional Goals: 1-Demonstrate ADL Tasks, 2-Verbalize Understanding, 3- ImproveStrength/Bushra 1=Demonstrate adherence to instructed precautions during ADL tasks. 2=Patient will verbalize/demonstrate understanding of assistive devices/modifications for ADL. 3=Patient will improve strength/tolerance for activity to enable patient to perform ADL's. OT Education/Plan Problem List/Assessment Assessment: Decreased Activ Tolerance, Decreased UE Strength, Dependent Transfers, Impaired Bed Mobility, Impaired Funct Balance, Impaired I ADL's, Impaired Self-Care Skills Discharge Recommendations Plan/Recommendations: Continue POC Therapy Discharge Recommendati: 24 Hour Supervision, Home & Family Treatment Plan/Plan of Care Treatment,Training & Education: Yes Patient would benefit from OT for education, treatment and training to promote independence in ADL's, mobility, safety and/or upper extremity function for ADL's. Plan of Care: ADL Retraining, Functional Mobility, Group Exercise/Act as Ind, UE Funct Exercise/Act Treatment Duration: August 25, 2019 Frequency: At least 5 of 7 days/Wk (IRF) Estimated Hrs Per Day: 1.5 hours per day Agreement: Yes Rehab Potential: Fair Time/GCodes Start Time: 13:40 Stop Time: 14:25 Total Time Billed (hr/min): 45 Billed Treatment Time 1, ADL x 3 MARTINA IQBAL OT Aug 18, 2019 14:39
--- NOTE | 2019-08-18 14:47 | NUR ---
CM/SS CONCURRENT DOCUMENTATION Visited patient this a.m., she indicates she has had sponge bath and hair washed. Appeared better today. Met her daughter to exchange dirty clothes for a bag of clean ones. Continuing to follow patient who has every intention to return home as before. Patient mentioned to RN about having to find a "sponsor" annually for her POTS Rx, [place]. Field Technical Specialist exploring through [email or web address] and with hospital PharmD/Ted.
--- NOTE | 2019-08-18 15:03 | Physical Therapy Daily Note ---
PT Daily Note-Current Subjective Pt. agrees to rx but states she is tired and cold. Warmed blanket applied to torso before Rx Pain Location: No Pain Reported Mental Status Patient Orientation: Normal For Age Transfers SCALE: Activities may be completed with or without assistive devices. 6-Idlteudiri-rmqakdw completes the activity by him/herself with no assistance from a helper. 5-Set-up or Clean-up Assistance-helper sets up or cleans up; patient completes activity. [place] assists only prior to or following the activity. 4-Supervision or Touching Assistance-helper provides verbal cues and/or touching/steadying and/or contact guard assistance as patient completes activity. Assistance may be provided throughout the activity or intermittently. 3-Partial/Moderate Assistance-helper does LESS THAN HALF the effort. [place] lifts, holds or supports trunk or limbs, but provides less than half the effort. 2-Substantial/Maximal Assistance-helper does MORE THAN HALF the effort. [place] lifts or holds trunk or limbs and provides more than half the effort. 4-Rhchfgjis-habzug does ALL the effort. Patient does none of the effort to complete the activity. Or, the assistance of 2 or more helpers is required for the patient to complete the activity. If activity was not attempted, code reason: 7-Patient Refused. 9-Not Applicable-not attempted and the patient did not perform the activity before the current illness, exacerbation or injury. 10-Not Attempted due to Environmental Limitations-(lack of equipment, weather restraints, etc.). 88-Not Attempted due to Medical Conditions or Safety Concerns. Roll Left & Right (QC): 5 pt. scooted self up in bed indep with instruction Weight Bearing Right Lower Extremity: Right Full Weight Bearing Left Lower Extremity: Left Full Weight Bearing Exercises Supine Ex: Quad Set, Rolling, Glut sets, Heel Slides, Short Arc Quads, Scooting, Straight leg raise, Hip abd/add Supine Reps: 15 Treatments warmed blanket on after Rx, call rodriguez at hand Assessment Current Status: Fair Progress PT Short Term Goals Short Term Goals Time Frame: Aug 18, 2019 Roll Left & Right: 6 Sit to lyin Lying to sitting on side of be: 6 Sit to stand: 4 Chair/slh-qh-vwgln transfer: 4 Walk 10 feet: 4 Walk 50 feet with two turns: 4 PT Alf Goals Warper Tender Goals PT Warper Tender Goals Time Frame: September 01, 2019 Roll Left & Right (QC): 6 Sit to Lying (QC): 6 Lying-Sitting on Side/Bed(QC): 6 Sit to Stand (QC): 6 Chair/Rrs-qf-Nyjkz Xfer(QC): 6 Toilet Transfer (QC): 6 Car Transfer (QC): 6 Does the Patient Walk: No and Walking Goal IS indicated Walk 10 feet (QC): 6 Walk 50ft with 2 Turns (QC): 6 Walk 150 ft (QC): 6 Walking 10ft on Uneven Surface: 6 1 Step (curb) (QC): 4 4 Steps (QC): 4 12 Steps (QC): 88 Picking up an Object (QC): 88 Wheel 50 feet with 2 turns (QC: 9 Wheel 150 feet: 9 PT Plan Treatment/Plan Treatment Plan: Continue Plan of Care Treatment Plan: Bed Mobility, Education, Functional Activity Bushra, Functional Strength, Group Therapy, Gait, Safety, Therapeutic Exercise, Transfers Treatment Duration: September 01, 2019 Frequency: At least 5 of 7 days/Wk (IRF) Estimated Hrs Per Day: 1.5 hours per day Patient and/or Family Agrees t: Yes Safety Risks/Education Patient Education: Correct Positioning, Disease Process, Safety Issues Teaching Recipient: Patient Teaching Methods: Discussion Response to Teaching: Verbalize Understanding, Return Demonstration, Reinforcement Needed Time/GCodes Time In: 1430 Time Out: 1500 Total Billed Treatment Time: 30 Total Billed Treatment 1,FA10m,EX20m ZARA ARNDT ROD WELDER Aug 18, 2019 15:03
--- NOTE | 2019-08-18 15:26 | NUR ---
"RD ASSESSMENT PMHx: HTN; hypotension; GERD; DM PT INTERACTION: Pt was awake and pleasant during nutrition follow-up. Pt states she has been eating poorly since last assessment. Note avg PO intake of 24% x4d, per chart review. Pt states some issues with nausea since last assessment. Pt states no issues with vomiting, constipation, or diarrhea since last assessment. Note last BM was 08/16 and pt currently on bowel regimen of Colace BID; Senna BID; and miralax BID, per chart review. Offered pt Glucerna with her lunch. Pt states she does not care for milk-based products. ABNORMAL NUTRITION-RELATED LAB VALUES LOW: Cl 95; glu 65 HIGH: Est. kcal needs: [id number] kcal | 25-30 kcal/kg Est. Pro needs: 64-77 g Pro | 1.0-1.2 g Pro/kg PES STATEMENT: Inadequate oral intake (NI-2.1) related to loss of appetite | nausea as evidenced by pt interview | avg PO intake 24% x4d INTERVENTION: Continue with current diet order of CHO 75g/m 3snack diet. Add High-protein jello to meals TID, for increased kcal intake. Provides 160 kcal and 20 g Pro per serving. Encouraged pt to eat when able. Will continue to follow and reassess as pt needs, intake, and status change. MONITOR/EVALUATE: PO Intake; Plan of Care; Hydration Status; Weight Status; Lab Values Jimmy Boykin, MS, RD, LD"
[2019-08-18 17:35] VITALS: BP 166/80
[2019-08-18] MEDS: ENOXAPARIN 40 MG/0.4 ML (LOVENOX) SYR SC SCH (17:39)
--- NOTE | 2019-08-18 20:00 | NUR ---
STRAIGHT CATH DONE PER PATIENT REQUEST USING STERILE TECHNIQUE. IMMEDIATE FLASH OBTAINED 800CC CLOUDY, YELLOW URINE. PATIENT TOLERATED PROCEDURE WELL.
[2019-08-19] MEDS ORDERED: metFORMIN 500 MG (GLUCOPHAGE) TAB ONE (05:07)
[2019-08-19 05:46] VITALS: BP 117/58
--- NOTE | 2019-08-19 05:51 | NUR ---
STRAIGHT CATH USING ASEPTIC TECHNIQUE. IMMEDIATE FLASH OF CLOUDY, YELLOW URINE. PATIENT TOLERATED PROCEDURE WELL. PATIENT IS PLEASANT THIS MORNING AND INFORMS THIS RN SHE LIKES TO "SIT IN BED FOR A WHILE BEFORE GETTING UP IN THE A.M. " PATIENT ALSO REQUESTING NO MALE NURSES. WILL PASS ON IN SHIFT REPORT. DENIES NEEDS OR C/O AT THIS TIME. CONT TO MONITOR.
--- NOTE | 2019-08-19 06:53 | NUR ---
PATIENT REFUSING TO GET UP IN CHAIR. STATES SHE "NEEDS TO STAY IN BED" REFERRING TO HER POTS SYNDROME. 0700 SCHEDULED MEDS UNABLE TO GIVE AT THIS TIME PATIENT ADAMANT SHE NEEDS TO LAY SUPINE. DENIES ANY OTHER NEEDS OR C/O. CONT TO MONITOR
[2019-08-19] MEDS: metFORMIN 500 MG (GLUCOPHAGE) TAB PO SCH ×2 (08:23→16:19)
[2019-08-19] MEDS: LIPASE/AMYLASE/PROTEASE (PANCRELIPASE) 5,000 UNITS CAP PO SCH ×4 (08:23→21:57)
[2019-08-19] MEDS: MAGNESIUM OXIDE (MAG-OX)400 MG TAB PO SCH ×2 (08:24→18:53)
[2019-08-19] MEDS: KCL 10 MEQ TAB (MICRO K) PO SCH ×3 (08:24→18:53)
[2019-08-19] MEDS: CEFDINIR 300 MG (OMNICEF) CAP PO SCH (08:24)
[2019-08-19] MEDS: DULoxetine 30 MG (CYMBALTA) CAP PO SCH (08:24)
[2019-08-19] MEDS: GABAPENTIN 100 MG (NEURONTIN) CAP PO SCH ×3 (08:24→21:57)
[2019-08-19] MEDS: FLUDROCORTISONE 0.1 MG (FLORINEF) TAB PO SCH (08:25)
[2019-08-19] MEDS: FAMOTIDINE 20 MG (PEPCID) TABLET PO SCH (08:25)
[2019-08-19] MEDS: MIDODRINE 10 MG (PROAMATINE) TAB PO SCH ×3 (08:26→21:57)
[2019-08-19] MEDS: DOCUSATE SODIUM 100 MG (COLACE) CAP PO SCH ×2 (08:26→21:40)
[2019-08-19] MEDS: SENNA W/DOCUSATE (SENOKOT S) TABLET PO SCH ×2 (08:26→21:41)
[2019-08-19] MEDS: COLESTIPOL 1 GM (COLESTID) TAB PO SCH ×2 (08:29→21:57)
[2019-08-19] MEDS: NORTHERA PO SCH ×3 (08:31→18:53)
[2019-08-19] MEDS: polyethylene glycoL POWDER 17 GM (MIRALAX) PACK PO SCH ×2 (08:33→21:40)
[2019-08-19] MEDS: FLUTICASONE NASAL SPRAY (FLONASE) 16 GM BTL NS SCH (08:33)
[2019-08-19] MEDS: CYCLOBENZAPRINE 10 MG (FLEXERIL) TAB PO PRN (08:36)
[2019-08-19] MEDS ORDERED: NS IV 1000 ML 1,000 ML IV SCH (09:00)
--- NOTE | 2019-08-19 09:25 | Cardiology Progress Note ---
Subjective Date Seen by Provider: Aug 19, 2019 Time Seen by Provider: 08:28 Subjective/Events-last exam Patient in bed this morning c/o dizziness/lightheadedness. Noted to be hypo tensive with SBP in the 80's. Denies any chest pain or syncope. Review of Systems General: No Chills, No Night Sweats; Fatigue, Malaise; No Appetite, No Other HEENT: No Head Aches, No Visual Changes, No Eye Pain, No Ear Pain, No Dysphasia, No Sinus Congestion, No Post Nasal Drip, No Sore Throat, No Other Pulmonary: No Dyspnea, No Cough, No Pleuritic Chest Pain, No Other Cardiovascular: No: Chest Pain, Palpitations, Orthopnea, Paroxysmal Noc. Dyspnea, Edema, Lt Headedness, Other Focused Exam Lactate Level 08/16/19 16:35: Lactic Acid Level 0.88 Objective-Cardiology Exam Last Set of Vital Signs Vital Signs 08/19/19 08/19/19 08/19/19 05:46 09:00 12:13 Temp 36.6 Pulse 80 Resp 12 B/P (MAP) 117/58 (77) Pulse Ox 90 O2 Delivery Room Air Capillary Refill : Less Than 3 Seconds I&O Intake and Output 08/19/19 00:00 Intake Total 1850 ml Output Total 2000 ml Balance -150 ml Intake Oral 1200 ml IV Total 650 ml Output Urine Total 2000 ml General: Alert, Oriented X3, Cooperative HEENT: Atraumatic, PERRLA Neck: Supple, No JVD, No Thyromegaly Lungs: Clear to Auscultation, Normal Air Movement Heart: Regular Rate, Normal S1, Normal S2, No Murmurs Abdomen: Normal Bowel Sounds, Soft, No Tenderness, No Hepatosplenomegaly, No M asses Extremities: No Clubbing, No Cyanosis, No Edema, Normal Pulses, No Tenderness/Swelling Skin: No Rashes, No Breakdown, No Significant Lesion Neuro: Normal Speech, Cranial Nerves 3-12 NL Psych/Mental Status: Mental Status NL, Mood NL Results Lab Laboratory Tests Test 08/18/19 20:34 08/19/19 05:27 Range/Units Glucometer 117 H 109 70-110 MG/DL A/P-Cardiology Admission Diagnosis POTS Recurrent UTI Generalized weakness HLP Assessment/Plan POTS- patient follows with cardiology at [facility], reporting recent workup done there. I will try to obtain a copy for our records. Currently maintained on Florinef and Midodrine and Northera. Hypotensive this morning, I will give 1L NS, continue to monitor. Recurrent UTI- continue on antibiotic, continue to monitor. Generalized weakness, continue with PT/OT HLP, continue to monitor as outpatient DM, management per medical services. Patient was seen and evaluated with Heydi, examination performed, management plan was discussed, agree with the current scribed note, I made few changes to the note using Italic font Patient had an episode of dizziness this morning, responded to IV fluid Continue to monitor and used MARITZA hose in addition to the current medication monitor tolerance and response Clinical Quality Measures DVT/VTE Risk/Contraindication: Risk Factor Score Per Nursin RFS Level Per Nursing on Admit: 4+=Very High HEYDI FREED Aug 19, 2019 09:25 ISRAEL GAMBOA MD Aug 19, 2019 13:27
--- NOTE | 2019-08-19 09:47 | PM&R Progress Note ---
Subjective HPI/CC On Admission Date Seen by Provider: Aug 19, 2019 Time Seen by Provider: 09:45 Subjective/Events-last exam 1 liter of fluid being given per Dr. Dubois Essentially failing because of the orthostasis She is even dizzy when she is lying down Pt had very poor reserve and unsure of the capability of reversing any of these severe chronic conditions of POTS is realistic No pain is reported otherwise UTI treatment changed due to sensitivity results to Cefdinir Reviewed therapy notes Checked meds and labs Conferred with ramp service agent of Systems General: Fatigue, Malaise Focused Exam Lactate Level Objective Exam Vital Signs Vital Signs Date Time Temp Pulse Resp B/P (MAP) Pulse Ox O2 Delivery O2 Flow Rate FiO2 08/20/19 06:04 36.2 82 18 130/71 (90) 92 Room Air Capillary Refill : Less Than 3 Seconds General Appearance: No Apparent Distress, WD/WN, Chronically ill, Thin, Other (frail) HEENT: PERRL/EOMI, Normal ENT Inspection, Pharynx Normal Neck: Full Range of Motion, Normal Inspection, Non Tender, Supple, Carotid Bruit Respiratory: Chest Non Tender, Lungs Clear, Normal Breath Sounds, No Accessory Muscle Use, No Respiratory Distress Cardiovascular: Regular Rate, Rhythm, No Edema, No Gallop, No JVD, No Murmur, Normal Peripheral Pulses Gastrointestinal: Normal Bowel Sounds, No Organomegaly, No Pulsatile Mass, Non Tender, Soft Back: Normal Inspection, No CVA Tenderness, No Vertebral Tenderness Extremity: Normal Capillary Refill, Normal Inspection, Normal Range of Motion, Non Tender, No Calf Tenderness, No Pedal Edema Neurologic/Psychiatric: Alert, Oriented x3, No Motor/Sensory Deficits (legs 4/5 strength), Normal Mood/Affect Skin: Normal Color, Warm/Dry Lymphatic: No Adenopathy Results/Procedures Lab Patient resulted labs reviewed. FIM Transfers Therapy Code Descriptions/Definitions Functional [place] Measure: 0=Not Assessed/NA 4=Minimal Assistance 1=Total Assistance 5=Supervision or Setup 2=Maximal Assistance 6=Modified [place] 3=Moderate Assistance 7=Complete IndependenceSCALE: Activities may be completed with or without assistive devices. 7-Jzdfgulcey-xiadsgi completes the activity by him/herself with no assistance from a helper. 5-Set-up or Clean-up Assistance-helper sets up or cleans up; patient completes activity. [place] assists only prior to or following the activity. 4-Supervision or Touching Assistance-helper provides verbal cues and/or touching/steadying and/or contact guard assistance as patient completes activity. Assistance may be provided throughout the activity or intermittently. 3-Partial/Moderate Assistance-helper does LESS THAN HALF the effort. [place] lifts, holds or supports trunk or limbs, but provides less than half the effort. 2-Substantial/Maximal Assistance-helper does MORE THAN HALF the effort. [place] lifts or holds trunk or limbs and provides more than half the effort. 1-Rgntrsfeh-yfkcwq does ALL the effort. Patient does none of the effort to complete the activity. Or, the assistance of 2 or more helpers is required for the patient to complete the activity. If activity was not attempted, code reason: 7-Patient Refused. 9-Not Applicable-not attempted and the patient did not perform the activity before the current illness, exacerbation or injury. 10-Not Attempted due to Environmental Limitations-(lack of equipment, weather restraints, etc.). 88-Not Attempted due to Medical Conditions or Safety Concerns. Roll Left to Right (QC): 5 Sit to Lying (QC): 5 Sit to Stand (QC): 4 Chair/Xhh-yx-Oddit Xfer(QC): 3 Car Transfer (QC): 4 Gait Training Does the Patient Walk?: Yes Distance: 10'x3 Walk 10 feet (QC): 4 Walk 50 ft with 2 Turns(QC): 88 Walk 150 ft (QC): 88 Walking 10ft/uneven surface-QC: 88 Gait Persons Needed: 1 Gait Assistive Device: Parallel Bars Wheelchair Training Does the Pt Use a Wheelchair?: Yes Distance: 150' Wheel 50 ft with 2 turns (QC): 4 Wheel 150 ft (QC): 4 Type of Wheelchair: Manual Stair Training 1 Step (curb) (QC): 88 4 Steps (QC): 88 12 Steps (QC): 88 Balance Picking up an Object (QC): 88 ADL-Treatment Eating (QC): 6 Oral Hygiene (QC): 5 Bathing Location: L Arm, R Arm, Chest, Abdomen Shower/Bathe Self (QC): 4 (CGA EOB) Upper Body Dressing (QC): 4 (CGA EOB intermittently) Lower Body Dressing (QC): 3 (Min assist in stance to doff/don pants over hips.) On/Off Footwear (QC): 4 (CGA while seated on side of bed to doff/don slipper socks.) Toileting Hygiene (QC): 3 (Min assist in stance for balance while pt. cleanses self after toileting.) Toilet Transfer (QC): 3 (Min assist.) Assessment/Plan Assessment and Plan Assess & Plan/Chief Complaint Assessment: (1A) Debility with major fall risk requiring IRF (1) s/p Sepsis 2 weeks ago on med-surg (2) Acute UTI recurrent type an now on Cefepime due to resistance (3) Abdominal pain (4) Hypokalemia (5) Neurogenic bladder-self caths maintained Urology at [facility] regular basis (6) Headache (7) Diabetes mellitus (8) Unsteady gait with POTS (Postoral orthostasis tachycardia syndrome) (9) Physical debility (10) DVT prophylaxis (11) Low back pain chronic w/h/o lumbar spine surgery (12) DM (13) Vit B12 def Plan: Labs and IVF due to syncopal episode from exacerbation of POTS Maintain on home meds Permissive hypertension due to severity of her orthostasis when standing up Pain control Bowel regimen to maintain Intensive therapies Straight in/out caths prn Cefepime Cardiology consultation is appreciated Fall risk (1) Physical debility Status: Acute (2) Unsteady gait Status: Acute (3) POTS (postural orthostatic tachycardia syndrome) Status: Chronic (4) Acute UTI Status: Acute (5) History of UTI Status: Chronic (6) Weakness Status: Chronic (7) Hypokalemia Status: Acute (8) Diabetes mellitus Status: Chronic (9) Neurogenic bladder Status: Chronic (10) DVT prophylaxis Status: Acute (11) Headache Status: Resolved Resolution Date/Time: 08/07/19 @ 12:08 (12) Low back pain (13) GERD (gastroesophageal reflux disease) Status: Chronic (14) Neuropathy MALIKA VÁZQUEZ DO Aug 19, 2019 09:47
--- NOTE | 2019-08-19 10:00 | NUR ---
INFORMED DR VÁZQUEZ THAT NIGHT NURSE REPORTED YEAST IN VAGINAL AREA DURING STRAIGHT CATH. ORDERS GIVE TO START MONISTAT QHS X7 DAYS.
--- NOTE | 2019-08-19 11:32 | Occupational Ther Daily Note ---
OT Current Status-Daily Note Subjective Attempted treatment at 0815, but pt had decreased BP and reports significant fatigue. RN was present to provide medication. On second attempt, pt resting in bed, states she feels a little better and agrees to therapy. Pt reports back pain with movement, but does not rate. ADL-Treatment Pt agrees to sit EOB, would like to clean up and change clothes. Supine BP 157/78. Pt supine to sit with assist for trunk. BP 80/49 initially when sitting, but increased to 112/55. Pt doffed shirt with SBA. Upper body bathing completed with SBA. Don pullover shirt with set up. Pt doffed pants while seated by shifting hips side to side. Pt able to wash bilateral LE and remedios area. Washed buttocks while seated by weight shifting left and right. Pt able to thread bilateral LE into pants. Stood briefly with min assist for pant hike. Pt combed hair with set up. Pt moves slowly and takes frequent rest breaks throughout treatment. Requires increased time for ADL completion. Pt returned to supine with SBA. Resting in bed with needs met after session. Therapy Code Descriptions/Definitions Functional [place] Measure: 0=Not Assessed/NA 4=Minimal Assistance 1=Total Assistance 5=Supervision or Setup 2=Maximal Assistance 6=Modified [place] 3=Moderate Assistance 7=Complete IndependenceSCALE: Activities may be completed with or without assistive devices. 2-Uzzojypqph-pwmlyxk completes the activity by him/herself with no assistance from a helper. 5-Set-up or Clean-up Assistance-helper sets up or cleans up; patient completes activity. [place] assists only prior to or following the activity. 4-Supervision or Touching Assistance-helper provides verbal cues and/or touching/steadying and/or contact guard assistance as patient completes activity. Assistance may be provided throughout the activity or intermittently. 3-Partial/Moderate Assistance-helper does LESS THAN HALF the effort. [place] lifts, holds or supports trunk or limbs, but provides less than half the effort. 2-Substantial/Maximal Assistance-helper does MORE THAN HALF the effort. [place] lifts or holds trunk or limbs and provides more than half the effort. 4-Jpficgazm-kzsldy does ALL the effort. Patient does none of the effort to complete the activity. Or, the assistance of 2 or more helpers is required for the patient to complete the activity. If activity was not attempted, code reason: 7-Patient Refused. 9-Not Applicable-not attempted and the patient did not perform the activity before the current illness, exacerbation or injury. 10-Not Attempted due to Environmental Limitations-(lack of equipment, weather restraints, etc.). 88-Not Attempted due to Medical Conditions or Safety Concerns. Shower/Bathe Self (QC): 3 Upper Body Dressing (QC): 4 Lower Body Dressing (QC): 3 OT Short Term Goals Short Term Goals Time Frame: Aug 18, 2019 Upper body dressin Lower body dressin Putting on/taking off footwear: 4 OT President [employer] Goals President [employer] Institution Goals Time Frame: August 25, 2019 Eating (QC): 6 Oral Hygiene (QC): 6 Toileting Hygiene (QC): 6 Shower/Bathe Self (QC): 4 Upper Body Dressing (QC): 6 Lower Body Dressing (QC): 6 On/Off Footwear (QC): 6 Additional Goals: 1-Demonstrate ADL Tasks, 2-Verbalize Understanding, 3- ImproveStrength/[place] 1=Demonstrate adherence to instructed precautions during ADL tasks. 2=Patient will verbalize/demonstrate understanding of assistive devices/modific ations for ADL. 3=Patient will improve strength/tolerance for activity to enable patient to perform ADL's. OT Education/Plan Discharge Recommendations Plan/Recommendations: Continue POC Treatment Plan/Plan of Care Patient would benefit from OT for education, treatment and training to promote independence in ADL's, mobility, safety and/or upper extremity function for ADL's. Plan of Care: ADL Retraining, Functional Mobility, Group Exercise/Act as Ind, UE Funct Exercise/Act Treatment Duration: August 25, 2019 Frequency: At least 5 of 7 days/Wk (IRF) Estimated Hrs Per Day: 1.5 hours per day Agreement: Yes Rehab Potential: Fair Time/GCodes Start Time: 10:15 Stop Time: 11:15 Total Time Billed (hr/min): 60 Billed Treatment Time 1 visit, ADLx4(60minutes) ADALGISA LIANG OT Aug 19, 2019 11:32
--- NOTE | 2019-08-19 11:43 | Physical Therapy Daily Note ---
PT Daily Note-Current Subjective Pt reports fatigue on arrival. She notes that her blood pressure has been running low. Pt denies pain on arrival. Mental Status Patient Orientation: Person, Place, Time, Situation Attachments: IV Transfers SCALE: Activities may be completed with or without assistive devices. 4-Jbjrptrdsw-zylslop completes the activity by him/herself with no assistance from a helper. 5-Set-up or Clean-up Assistance-helper sets up or cleans up; patient completes activity. [place] assists only prior to or following the activity. 4-Supervision or Touching Assistance-helper provides verbal cues and/or touching/steadying and/or contact guard assistance as patient completes activity. Assistance may be provided throughout the activity or intermittently. 3-Partial/Moderate Assistance-helper does LESS THAN HALF the effort. [place] lifts, holds or supports trunk or limbs, but provides less than half the effort. 2-Substantial/Maximal Assistance-helper does MORE THAN HALF the effort. [place] lifts or holds trunk or limbs and provides more than half the effort. 9-Xctcfvgdn-yfdvlo does ALL the effort. Patient does none of the effort to complete the activity. Or, the assistance of 2 or more helpers is required for the patient to complete the activity. If activity was not attempted, code reason: 7-Patient Refused. 9-Not Applicable-not attempted and the patient did not perform the activity before the current illness, exacerbation or injury. 10-Not Attempted due to Environmental Limitations-(lack of equipment, weather restraints, etc.). 88-Not Attempted due to Medical Conditions or Safety Concerns. Roll Left & Right (QC): 3 Sit to Lying (QC): 3 Lying to Sitting/Side of Bed(Q: 3 Sit to Stand (QC): 3 Weight Bearing Right Lower Extremity: Right Full Weight Bearing Left Lower Extremity: Left Full Weight Bearing Gait Training Does the Patient Walk?: No and Walking Goal IS indicated Wheelchair Training Does the Pt Use a Wheelchair?: No Exercises Supine Ex: LE Protocol Supine Reps: 20 Seated Therapy Exercises: Ankle pumps, Long arc quads, Hip flexion Seated Reps: 20 Treatments Pt worked on sitting edge of bed and maintaining correct posture (I). She was able to sit edge of bed for 5 minutes with only verbal cues to make postural corrections. She was able to stand 3x with the walker and moderate assist. She remained standing each time for 30-40 seconds. Assessment Current Status: Good Progress Initial BP 136/67mmHg with pulse 86bpm. Seated BP 98/52mmHg with pulse 86bpm. Standing BP 72/42mmHg with pulse 71bpm. Pt was very fatigued after each session in standing. She returned to supine after the third time standing. Pt denied dizziness when standing only a feeling of overwhelming fatigue. PT Short Term Goals Short Term Goals Time Frame: Aug 18, 2019 Roll Left & Right: 6 Sit to lyin Lying to sitting on side of be: 6 Sit to stand: 4 Chair/zsn-nr-wawlz transfer: 4 Walk 10 feet: 4 Walk 50 feet with two turns: 4 PT Gas Stove Servicer Helper Goals Long-Term Goals PT Gas Stove Servicer Helper Goals Time Frame: September 01, 2019 Roll Left & Right (QC): 6 Sit to Lying (QC): 6 Lying-Sitting on Side/Bed(QC): 6 Sit to Stand (QC): 6 Chair/Qke-uy-Bnlto Xfer(QC): 6 Toilet Transfer (QC): 6 Car Transfer (QC): 6 Does the Patient Walk: No and Walking Goal IS indicated Walk 10 feet (QC): 6 Walk 50ft with 2 Turns (QC): 6 Walk 150 ft (QC): 6 Walking 10ft on Uneven Surface: 6 1 Step (curb) (QC): 4 4 Steps (QC): 4 12 Steps (QC): 88 Picking up an Object (QC): 88 Wheel 50 feet with 2 turns (QC: 9 Wheel 150 feet: 9 PT Plan Treatment/Plan Treatment Plan: Continue Plan of Care Treatment Plan: Bed Mobility, Education, Functional Activity [place], Functional Strength, Group Therapy, Gait, Safety, Therapeutic Exercise, Transfers Treatment Duration: September 01, 2019 Frequency: At least 5 of 7 days/Wk (IRF) Estimated Hrs Per Day: 1.5 hours per day Patient and/or Family Agrees t: Yes Time/GCodes Time In: 0915 Time Out: 1015 Total Billed Treatment Time: 60 Total Billed Treatment 1, ex x3 (45), fa (15) SAN[place] BEST PT Aug 19, 2019 11:43
--- NOTE | 2019-08-19 13:30 | NUR ---
MICROBIOLOGY REPORTED TO THIS NURSE C&S WAS IN FOR PT AND NEEDED STAT ATTENTION. DR. VÁZQUEZ NOTIFIED AND [facility] ABT. ISOLATION CONTACT PRECAUTIONS STARTED. HAS HAD ORTHOSTATIC HYPOTENSION AND DIZZINESS AND HAS BEEN ABLE TO GET OUT OF BED TO WORK WITH THERAPY. DR. VÁZQUEZ AWARE. PT RECEIVED 1L OF NS BOLUS AND BP HAS IMPROVED SOME.
--- NOTE | 2019-08-19 13:53 | Occupational Ther Daily Note ---
OT Current Status-Daily Note Subjective Pt sitting up in bed, finishing lunch. Agrees to therapy. ADL-Treatment Therapy Code Descriptions/Definitions Functional [place] Measure: 0=Not Assessed/NA 4=Minimal Assistance 1=Total Assistance 5=Supervision or Setup 2=Maximal Assistance 6=Modified [place] 3=Moderate Assistance 7=Complete IndependenceSCALE: Activities may be completed with or without assistive devices. 4-Beumuivnxd-jdbllwt completes the activity by him/herself with no assistance from a helper. 5-Set-up or Clean-up Assistance-helper sets up or cleans up; patient completes activity. [place] assists only prior to or following the activity. 4-Supervision or Touching Assistance-helper provides verbal cues and/or touching/steadying and/or contact guard assistance as patient completes activity. Assistance may be provided throughout the activity or intermittently. 3-Partial/Moderate Assistance-helper does LESS THAN HALF the effort. [place] lifts, holds or supports trunk or limbs, but provides less than half the effort. 2-Substantial/Maximal Assistance-helper does MORE THAN HALF the effort. [place] lifts or holds trunk or limbs and provides more than half the effort. 9-Ikyuzahwm-ohrhrd does ALL the effort. Patient does none of the effort to complete the activity. Or, the assistance of 2 or more helpers is required for the patient to complete the activity. If activity was not attempted, code reason: 7-Patient Refused. 9-Not Applicable-not attempted and the patient did not perform the activity before the current illness, exacerbation or injury. 10-Not Attempted due to Environmental Limitations-(lack of equipment, weather restraints, etc.). 88-Not Attempted due to Medical Conditions or Safety Concerns. Eating (QC): 6 (Pt feeding self lunch without assist) Other Treatment Pt completed bilateral UE exercises to increase strength needed for functional task completion. Pt performed shoulder flexion, abduction, biceps curls, and triceps extension exercises x10 reps, 2 sets with mild resistance (yellow) theraband. Pt takes rest breaks between exercises. Skilled cues required for proper exercise technique. Pt in bed with needs met after session. OT Short Term Goals Short Term Goals Time Frame: Aug 18, 2019 Upper body dressin Lower body dressin Putting on/taking off footwear: 4 OT Centrifuge Operator Goals Assisted Goals Time Frame: August 25, 2019 Eating (QC): 6 Oral Hygiene (QC): 6 Toileting Hygiene (QC): 6 Shower/Bathe Self (QC): 4 Upper Body Dressing (QC): 6 Lower Body Dressing (QC): 6 On/Off Footwear (QC): 6 Additional Goals: 1-Demonstrate ADL Tasks, 2-Verbalize Understanding, 3- ImproveStrength/[place] 1=Demonstrate adherence to instructed precautions during ADL tasks. 2=Patient will verbalize/demonstrate understanding of assistive devices/mod ifications for ADL. 3=Patient will improve strength/tolerance for activity to enable patient to perform ADL's. OT Education/Plan Discharge Recommendations Plan/Recommendations: Continue POC Treatment Plan/Plan of Care Patient would benefit from OT for education, treatment and training to promote independence in ADL's, mobility, safety and/or upper extremity function for ADL's. Plan of Care: ADL Retraining, Functional Mobility, Group Exercise/Act as Ind, UE Funct Exercise/Act Treatment Duration: August 25, 2019 Frequency: At least 5 of 7 days/Wk (IRF) Estimated Hrs Per Day: 1.5 hours per day Agreement: Yes Rehab Potential: Fair Time/GCodes Start Time: 13:00 Stop Time: 13:30 Total Time Billed (hr/min): 30 Billed Treatment Time 1 visit, EXx2(30minutes) ADALGISA LIANG OT Aug 19, 2019 13:53
--- NOTE | 2019-08-19 14:56 | Physical Therapy Daily Note ---
PT Daily Note-Current Subjective Pt is in bed on arrival and agreeable to treatment. Pt denies pain on arrival. Mental Status Patient Orientation: Person, Place, Time, Situation Attachments: IV Transfers SCALE: Activities may be completed with or without assistive devices. 2-Mgerndsalk-iuijmnq completes the activity by him/herself with no assistance from a helper. 5-Set-up or Clean-up Assistance-helper sets up or cleans up; patient completes activity. [place] assists only prior to or following the activity. 4-Supervision or Touching Assistance-helper provides verbal cues and/or touching/steadying and/or contact guard assistance as patient completes activity. Assistance may be provided throughout the activity or intermittently. 3-Partial/Moderate Assistance-helper does LESS THAN HALF the effort. [place] lifts, holds or supports trunk or limbs, but provides less than half the effort. 2-Substantial/Maximal Assistance-helper does MORE THAN HALF the effort. [place] lifts or holds trunk or limbs and provides more than half the effort. 5-Hsuoyqavd-kxfyzj does ALL the effort. Patient does none of the effort to complete the activity. Or, the assistance of 2 or more helpers is required for the patient to complete the activity. If activity was not attempted, code reason: 7-Patient Refused. 9-Not Applicable-not attempted and the patient did not perform the activity before the current illness, exacerbation or injury. 10-Not Attempted due to Environmental Limitations-(lack of equipment, weather restraints, etc.). 88-Not Attempted due to Medical Conditions or Safety Concerns. Roll Left & Right (QC): 3 Sit to Lying (QC): 3 Lying to Sitting/Side of Bed(Q: 3 Sit to Stand (QC): 3 Weight Bearing Right Lower Extremity: Right Full Weight Bearing Left Lower Extremity: Left Full Weight Bearing Gait Training Does the Patient Walk?: No and Walking Goal IS indicated Exercises Supine Ex: LE Protocol, Bridging Supine Reps: 20 Seated Therapy Exercises: Ankle pumps, Long arc quads, Hip flexion Seated Reps: 15 Sat edge of bed for 5 minutes and stood once for 1 minute. Pt's blood pressure was assessed supine, seated, and standing. Assessment Current Status: Fair Progress BP assessed in supine 140/72mmHg 78bpm. BP seated initial 90/47mmHg 71bpm. BP seated 3min 102/57mmHg 80bpm. BP standing 73/37mmHg 81bpm. Pt was able to perform all supine and seated ex (I). She noted feeling very lightheaded after standing for one minute. PT Short Term Goals Short Term Goals Time Frame: Aug 18, 2019 Roll Left & Right: 6 Sit to lyin Lying to sitting on side of be: 6 Sit to stand: 4 Chair/cug-ca-illky transfer: 4 Walk 10 feet: 4 Walk 50 feet with two turns: 4 PT Refuse Collector Goals [facility] Goals PT Refuse Collector Goals Time Frame: September 01, 2019 Roll Left & Right (QC): 6 Sit to Lying (QC): 6 Lying-Sitting on Side/Bed(QC): 6 Sit to Stand (QC): 6 Chair/Klp-dp-Pgczy Xfer(QC): 6 Toilet Transfer (QC): 6 Car Transfer (QC): 6 Does the Patient Walk: No and Walking Goal IS indicated Walk 10 feet (QC): 6 Walk 50ft with 2 Turns (QC): 6 Walk 150 ft (QC): 6 Walking 10ft on Uneven Surface: 6 1 Step (curb) (QC): 4 4 Steps (QC): 4 12 Steps (QC): 88 Picking up an Object (QC): 88 Wheel 50 feet with 2 turns (QC: 9 Wheel 150 feet: 9 PT Plan Treatment/Plan Treatment Plan: Continue Plan of Care Treatment Plan: Bed Mobility, Education, Functional Activity [place], Functional Strength, Group Therapy, Gait, Safety, Therapeutic Exercise, Transfers Treatment Duration: September 01, 2019 Frequency: At least 5 of 7 days/Wk (IRF) Estimated Hrs Per Day: 1.5 hours per day Patient and/or Family Agrees t: Yes Time/GCodes Time In: 1415 Time Out: 1445 Total Billed Treatment Time: 30 Total Billed Treatment 1, ex (20), fa (10) SANFORD BEST PT Aug 19, 2019 14:56
[2019-08-19] MEDS: CEFEPIME 2,000 MG/SWFI 20 ML IV PUSH IV SCH ×2 (15:54)
[2019-08-19 17:11] VITALS: BP 147/74
[2019-08-19] MEDS: ENOXAPARIN 40 MG/0.4 ML (LOVENOX) SYR SC SCH (18:54)
[2019-08-19] MEDS: MICONAZOLE NITRATE 2% CRM 30 GM TP SCH (22:00)
[2019-08-20 06:04] VITALS: BP 130/71
[2019-08-20] MEDS: metFORMIN 500 MG (GLUCOPHAGE) TAB PO SCH ×2 (06:28→17:44)
[2019-08-20] MEDS: LIPASE/AMYLASE/PROTEASE (PANCRELIPASE) 5,000 UNITS CAP PO SCH ×4 (06:28→20:33)
[2019-08-20] MEDS: polyethylene glycoL POWDER 17 GM (MIRALAX) PACK PO SCH ×2 (08:12→20:34)
[2019-08-20] MEDS: GABAPENTIN 100 MG (NEURONTIN) CAP PO SCH ×3 (08:39→20:33)
[2019-08-20] MEDS: DULoxetine 30 MG (CYMBALTA) CAP PO SCH (08:39)
[2019-08-20] MEDS: DOCUSATE SODIUM 100 MG (COLACE) CAP PO SCH ×2 (08:39→20:33)
[2019-08-20] MEDS: FAMOTIDINE 20 MG (PEPCID) TABLET PO SCH (08:40)
[2019-08-20] MEDS: MAGNESIUM OXIDE (MAG-OX)400 MG TAB PO SCH ×2 (08:40→17:44)
[2019-08-20] MEDS: KCL 10 MEQ TAB (MICRO K) PO SCH ×3 (08:40→17:44)
[2019-08-20] MEDS: FLUDROCORTISONE 0.1 MG (FLORINEF) TAB PO SCH (08:40)
[2019-08-20] MEDS: SENNA W/DOCUSATE (SENOKOT S) TABLET PO SCH ×2 (08:41→20:33)
[2019-08-20] MEDS: COLESTIPOL 1 GM (COLESTID) TAB PO SCH ×2 (08:41→20:33)
[2019-08-20] MEDS: MIDODRINE 10 MG (PROAMATINE) TAB PO SCH ×3 (08:41→20:33)
[2019-08-20] MEDS: NORTHERA PO SCH ×3 (08:44→17:44)
[2019-08-20] MEDS: FLUTICASONE NASAL SPRAY (FLONASE) 16 GM BTL NS SCH (08:44)
--- NOTE | 2019-08-20 09:15 | Cardiology Progress Note ---
Subjective Date Seen by Provider: Aug 20, 2019 Time Seen by Provider: 08:40 Subjective/Events-last exam Patient is in bed, c/o dizziness when sitting. Nurse reports poor oral intake over the last 24 hours. Review of Systems General: No Chills, No Night Sweats; Fatigue; No Malaise, No Appetite, No Other HEENT: No Head Aches, No Visual Changes, No Eye Pain, No Ear Pain, No Dyspha araceli, No Sinus Congestion, No Post Nasal Drip, No Sore Throat, No Other Pulmonary: No Dyspnea, No Cough, No Pleuritic Chest Pain, No Other Cardiovascular: No: Chest Pain, Palpitations, Orthopnea, Paroxysmal Noc. D yspnea, Edema, Lt Headedness, Other Objective-Cardiology Exam Last Set of Vital Signs Vital Signs 08/20/19 08/20/19 08/20/19 06:04 08:00 12:40 Temp 36.2 Pulse 85 Resp 18 B/P (MAP) 130/71 (90) Pulse Ox 92 O2 Delivery Room Air Capillary Refill : Less Than 3 Seconds I&O Intake and Output 08/20/19 00:00 Intake Total 2760 ml Output Total 2200 ml Balance 560 ml Intake Oral 1760 ml IV Total 1000 ml Output Urine Total 2200 ml # Bowel Movements 1 General: Alert, Oriented X3, Cooperative HEENT: Atraumatic, PERRLA Neck: Supple, No JVD, No Thyromegaly Lungs: Clear to Auscultation, Normal Air Movement Heart: Regular Rate, Normal S1, Normal S2, No Murmurs Abdomen: Normal Bowel Sounds, Soft, No Tenderness, No Hepatosplenomegaly, No Masses Extremities: No Clubbing, No Cyanosis, No Edema, Normal Pulses, No Tenderness/Swelling Skin: No Rashes, No Breakdown, No Significant Lesion Neuro: Normal Speech, Cranial Nerves 3-12 NL Psych/Mental Status: Mental Status NL, Mood NL Results Lab Laboratory Tests Test 08/20/19 05:06 Range/Units Glucometer 93 70-110 MG/DL A/P-Cardiology Admission Diagnosis POTS Recurrent UTI Generalized weakness HLP Assessment/Plan POTS- patient follows with cardiology at [facility] in [place], reporting recent workup done there. I will try to obtain a copy for our records. Currently maintained on Florinef and Midodrine and Northera. Patient with orthostatic hypotension this morning. Has had poor oral intake. Had long discussion about increasing fluids. Continue to monitor Recurrent UTI- continue on antibiotic, continue to monitor. Generalized weakness, continue with PT/OT HLP, continue to monitor as outpatient DM, management per medical services. Patient was seen and evaluated with Heydi, examination performed, management plan was discussed, agree with the current scribed note, I made few changes to the note using Italic font Patient had episode of orthostatic dizziness, receiving IV fluids, encourage increasing salt intake and increasing fluid intake Continue to monitor and continue with physical therapy Clinical Quality Measures DVT/VTE Risk/Contraindication: Risk Factor Score Per Nursin RFS Level Per Nursing on Admit: 4+=Very High HEYDI FREED Aug 20, 2019 09:15 ISRAEL GAMBOA MD Aug 20, 2019 14:05
--- NOTE | 2019-08-20 09:25 | Physical Therapy Daily Note ---
PT Daily Note-Current Subjective Pt laying Supine in bed upon arrival. Pt agrees to PT but reports still feeling pretty bad when BP drops. Pain Location: No Pain Reported Mental Status Patient Orientation: Person, Place, Situation Transfers SCALE: Activities may be completed with or without assistive devices. 1-Tzafftpsvs-tjjtdrz completes the activity by him/herself with no assistance from a helper. 5-Set-up or Clean-up Assistance-helper sets up or cleans up; patient completes activity. [place] assists only prior to or following the activity. 4-Supervision or Touching Assistance-helper provides verbal cues and/or touching/steadying and/or contact guard assistance as patient completes activity. Assistance may be provided throughout the activity or intermittently. 3-Partial/Moderate Assistance-helper does LESS THAN HALF the effort. [place] lifts, holds or supports trunk or limbs, but provides less than half the effort. 2-Substantial/Maximal Assistance-helper does MORE THAN HALF the effort. [place] lifts or holds trunk or limbs and provides more than half the effort. 1-Lmkdogvmb-iqcosh does ALL the effort. Patient does none of the effort to complete the activity. Or, the assistance of 2 or more helpers is required for the patient to complete the activity. If activity was not attempted, code reason: 7-Patient Refused. 9-Not Applicable-not attempted and the patient did not perform the activity before the current illness, exacerbation or injury. 10-Not Attempted due to Environmental Limitations-(lack of equipment, weather restraints, etc.). 88-Not Attempted due to Medical Conditions or Safety Concerns. Sit to Lying (QC): 4 Sit to Stand (QC): 4 Weight Bearing Right Lower Extremity: Right Full Weight Bearing Left Lower Extremity: Left Full Weight Bearing Gait Training Does the Patient Walk?: No and Walking Goal IS indicated Treatments ASSEMBLER BRAZER monitors pt's BP throughout Rx. Pt completes several Supine to EOB transfers but only able to sit up a couple of minutes before needing to lay back. After Nurse gives BP med with morning meds and ASSEMBLER BRAZER dons MARITZA hoses & KWAME wrap, pt's BP improves. Pt transfers to recliner and rests at end of Rx. Pt has all needs met, call light in hand. Assessment Current Status: Fair Progress BP starts 130/74, Pulse 82 & O2 96% at Supine, drops to 86/48 when sitting at EOB. Taken again after meds given, BP 146/78 & Pulse 85. BP drops to 86/32at EOB but recovers to 103/44 after ~5 mins. Pt's BP is 94/44 at end of Rx after transfer to recliner. PT Short Term Goals Short Term Goals Time Frame: Aug 18, 2019 Roll Left & Right: 6 Sit to lyin Lying to sitting on side of be: 6 Sit to stand: 4 Chair/xml-is-xwely transfer: 4 Walk 10 feet: 4 Walk 50 feet with two turns: 4 PT Correction Goals Correction Goals PT [place] Manager Goals Time Frame: September 01, 2019 Roll Left & Right (QC): 6 Sit to Lying (QC): 6 Lying-Sitting on Side/Bed(QC): 6 Sit to Stand (QC): 6 Chair/Akt-wn-Ngkvl Xfer(QC): 6 Toilet Transfer (QC): 6 Car Transfer (QC): 6 Does the Patient Walk: No and Walking Goal IS indicated Walk 10 feet (QC): 6 Walk 50ft with 2 Turns (QC): 6 Walk 150 ft (QC): 6 Walking 10ft on Uneven Surface: 6 1 Step (curb) (QC): 4 4 Steps (QC): 4 12 Steps (QC): 88 Picking up an Object (QC): 88 Wheel 50 feet with 2 turns (QC: 9 Wheel 150 feet: 9 PT Plan Problem List Problem List: Activity Tolerance, Functional Strength, Safety, Balance, Gait, Transfer Treatment/Plan Treatment Plan: Continue Plan of Care Treatment Plan: Bed Mobility, Education, Functional Activity Bushra, Functional Strength, Group Therapy, Gait, Safety, Therapeutic Exercise, Transfers Treatment Duration: September 01, 2019 Frequency: At least 5 of 7 days/Wk (IRF) Estimated Hrs Per Day: 1.5 hours per day Patient and/or Family Agrees t: Yes Safety Risks/Education Patient Education: Transfer Techniques, Correct Positioning, Safety Issues Teaching Recipient: Patient Teaching Methods: Discussion Response to Teaching: Verbalize Understanding Time/GCodes Time In: 815 Time Out: 915 Total Billed Treatment Time: 60 Total Billed Treatment 1, FA x4 (60m) MUMTAZ CAMACHO ASSEMBLER BRAZER Aug 20, 2019 09:25
--- NOTE | 2019-08-20 10:15 | PM&R Progress Note ---
Subjective HPI/CC On Admission Date Seen by Provider: Aug 20, 2019 Time Seen by Provider: 10:15 Subjective/Events-last exam Pt overall much improved now after IV fluids Cardiology instructed her to increase her oral intake because dehydration makes her medication for the POTS condition useless Slowly moving around Last bowel movement was August 17 Walter hose and deepak wraps placed prior to her getting up and around Overall feeling better Met with a manager core and now she is going to have a meal without the spices that give her heart burn Reviewed therapy notes Checked meds and labs Conferred with wheelabrator operator of Systems General: Fatigue Neurological: Weakness Objective Exam Vital Signs Vital Signs Date Time Temp Pulse Resp B/P (MAP) Pulse Ox O2 Delivery O2 Flow Rate FiO2 08/21/19 07:02 79 08/21/19 06:09 36.2 12 112/55 (74) 92 Room Air Capillary Refill : Less Than 3 Seconds General Appearance: No Apparent Distress, WD/WN, Chronically ill, Thin, Other (frail) HEENT: PERRL/EOMI, Normal ENT Inspection, Pharynx Normal Neck: Full Range of Motion, Normal Inspection, Non Tender, Supple, Carotid Bruit Respiratory: Chest Non Tender, Lungs Clear, Normal Breath Sounds, No Accessory Muscle Use, No Respiratory Distress Cardiovascular: Regular Rate, Rhythm, No Edema, No Gallop, No JVD, No Murmur, Normal Peripheral Pulses Gastrointestinal: Normal Bowel Sounds, No Organomegaly, No Pulsatile Mass, Non Tender, Soft Back: Normal Inspection, No CVA Tenderness, No Vertebral Tenderness Extremity: Normal Capillary Refill, Normal Inspection, Normal Range of Motion, Non Tender, No Calf Tenderness, No Pedal Edema Neurologic/Psychiatric: Alert, Oriented x3, No Motor/Sensory Deficits (legs 4/5 strength), Normal Mood/Affect Skin: Normal Color, Warm/Dry Lymphatic: No Adenopathy Results/Procedures Lab Patient resulted labs reviewed. FIM Transfers Therapy Code Descriptions/Definitions Functional [place] Measure: 0=Not Assessed/NA 4=Minimal Assistance 1=Total Assistance 5=Supervision or Setup 2=Maximal Assistance 6=Modified [place] 3=Moderate Assistance 7=Complete IndependenceSCALE: Activities may be completed with or without assistive devices. 1-Nqxfttdmbk-gabdqdj completes the activity by him/herself with no assistance from a helper. 5-Set-up or Clean-up Assistance-helper sets up or cleans up; patient completes activity. [place] assists only prior to or following the activity. 4-Supervision or Touching Assistance-helper provides verbal cues and/or touching/steadying and/or contact guard assistance as patient completes activity. Assistance may be provided throughout the activity or intermittently. 3-Partial/Moderate Assistance-helper does LESS THAN HALF the effort. [place] lifts, holds or supports trunk or limbs, but provides less than half the effort. 2-Substantial/Maximal Assistance-helper does MORE THAN HALF the effort. [place] lifts or holds trunk or limbs and provides more than half the effort. 5-Lyxlutdxt-iddusp does ALL the effort. Patient does none of the effort to complete the activity. Or, the assistance of 2 or more helpers is required for the patient to complete the activity. If activity was not attempted, code reason: 7-Patient Refused. 9-Not Applicable-not attempted and the patient did not perform the activity before the current illness, exacerbation or injury. 10-Not Attempted due to Environmental Limitations-(lack of equipment, weather restraints, etc.). 88-Not Attempted due to Medical Conditions or Safety Concerns. Roll Left to Right (QC): 3 Sit to Lying (QC): 4 Sit to Stand (QC): 4 Chair/Jft-yc-Bdorq Xfer(QC): 3 Car Transfer (QC): 4 Gait Training Does the Patient Walk?: No and Walking Goal IS indicated Distance: 10'x3 Walk 10 feet (QC): 4 Walk 50 ft with 2 Turns(QC): 88 Walk 150 ft (QC): 88 Walking 10ft/uneven surface-QC: 88 Gait Persons Needed: 1 Gait Assistive Device: Parallel Bars Wheelchair Training Does the Pt Use a Wheelchair?: No Distance: 150' Wheel 50 ft with 2 turns (QC): 4 Wheel 150 ft (QC): 4 Type of Wheelchair: Manual Stair Training 1 Step (curb) (QC): 88 4 Steps (QC): 88 12 Steps (QC): 88 Balance Picking up an Object (QC): 88 ADL-Treatment Eating (QC): 6 (Pt feeding self lunch without assist) Oral Hygiene (QC): 5 Bathing Location: L Arm, R Arm, Chest, Abdomen Shower/Bathe Self (QC): 3 Upper Body Dressing (QC): 4 Lower Body Dressing (QC): 3 On/Off Footwear (QC): 4 (CGA while seated on side of bed to doff/don slipper socks.) Toileting Hygiene (QC): 3 (Min assist in stance for balance while pt. cleanses self after toileting.) Toilet Transfer (QC): 3 (Min assist.) Assessment/Plan Assessment and Plan Assess & Plan/Chief Complaint Assessment: (1A) Debility with major fall risk requiring IRF (1) s/p Sepsis 2 weeks ago on med-surg (2) Acute UTI recurrent type an now on Cefepime due to resistance (3) Abdominal pain (4) Hypokalemia (5) Neurogenic bladder-self caths maintained Urology at [facility] regular basis (6) Headache (7) Diabetes mellitus (8) Unsteady gait with POTS (Postoral orthostasis tachycardia syndrome) (9) Physical debility (10) DVT prophylaxis (11) Low back pain chronic w/h/o lumbar spine surgery (12) DM (13) Vit B12 def Plan: Labs and IVF due to syncopal episode from exacerbation of POTS Maintain on home meds Permissive hypertension due to severity of her orthostasis when standing up Pain control Bowel regimen to maintain Intensive therapies Straight in/out caths prn Cefepime Cardiology consultation is appreciated Fall risk (1) Physical debility Status: Acute (2) Unsteady gait Status: Acute (3) POTS (postural orthostatic tachycardia syndrome) Status: Chronic (4) Acute UTI Status: Acute (5) History of UTI Status: Chronic (6) Weakness Status: Chronic (7) Hypokalemia Status: Acute (8) Diabetes mellitus Status: Chronic (9) Neurogenic bladder Status: Chronic (10) DVT prophylaxis Status: Acute (11) Headache Status: Resolved Resolution Date/Time: 08/07/19 @ 12:08 (12) Low back pain (13) GERD (gastroesophageal reflux disease) Status: Chronic (14) Neuropathy MALIKA VÁZQUEZ DO Aug 20, 2019 10:15
--- NOTE | 2019-08-20 10:35 | NUR ---
Pastoral care visit.
--- NOTE | 2019-08-20 11:22 | Occupational Ther Daily Note ---
OT Current Status-Daily Note Subjective Pt sitting in chair, agrees to treatment. Denies pain at this time. ADL-Treatment Pt sitting in chair finishing breakfast. Pt able to feed self without assist. S itting in chair BP 119/66. Sponge bath completed while seated in chair. Doff shirt without assist. Pt completed upper body bathing with SBA. Pt doffed pants while seated by weight shifting left and right. Lower body bathing completed while seated. Pt declined to wash lower legs and feet secondary to MARITZA hose and KWAME wraps in place. Pt donned pullover shirt with set up. Pt able to thread bilateral LE into pants. Stood with min assist for balance during pant hike. Pt combed hair with set up. Pt fatigues with activity and takes frequent rest breaks throughout treatment. Increased time for ADLs. Pt sitting in chair with needs met after session. Therapy Code Descriptions/Definitions Functional [place] Measure: 0=Not Assessed/NA 4=Minimal Assistance 1=Total Assistance 5=Supervision or Setup 2=Maximal Assistance 6=Modified [place] 3=Moderate Assistance 7=Complete IndependenceSCALE: Activities may be completed with or without assistive devices. 0-Equywngkjf-lznrqgk completes the activity by him/herself with no assistance from a helper. 5-Set-up or Clean-up Assistance-helper sets up or cleans up; patient completes activity. [place] assists only prior to or following the activity. 4-Supervision or Touching Assistance-helper provides verbal cues and/or touching/steadying and/or contact guard assistance as patient completes activity. Assistance may be provided throughout the activity or intermittently. 3-Partial/Moderate Assistance-helper does LESS THAN HALF the effort. [place] lifts, holds or supports trunk or limbs, but provides less than half the effort. 2-Substantial/Maximal Assistance-helper does MORE THAN HALF the effort. [place] lifts or holds trunk or limbs and provides more than half the effort. 1-Vmyllzouu-fprqev does ALL the effort. Patient does none of the effort to com plete the activity. Or, the assistance of 2 or more helpers is required for the patient to complete the activity. If activity was not attempted, code reason: 7-Patient Refused. 9-Not Applicable-not attempted and the patient did not perform the activity before the current illness, exacerbation or injury. 10-Not Attempted due to Environmental Limitations-(lack of equipment, weather restraints, etc.). 88-Not Attempted due to Medical Conditions or Safety Concerns. Eating (QC): 6 Upper Body Dressing (QC): 5 Lower Body Dressing (QC): 3 OT Short Term Goals Short Term Goals Time Frame: Aug 18, 2019 Upper body dressin Lower body dressin Putting on/taking off footwear: 4 OT Nursing Home Goals Clipper Counters Goals Time Frame: August 25, 2019 Eating (QC): 6 Oral Hygiene (QC): 6 Toileting Hygiene (QC): 6 Shower/Bathe Self (QC): 4 Upper Body Dressing (QC): 6 Lower Body Dressing (QC): 6 On/Off Footwear (QC): 6 Additional Goals: 1-Demonstrate ADL Tasks, 2-Verbalize Understanding, 3- ImproveStrength/Bushra 1=Demonstrate adherence to instructed precautions during ADL tasks. 2=Patient will verbalize/demonstrate understanding of assistive devices/modifications for ADL. 3=Patient will improve strength/tolerance for activity to enable patient to perform ADL's. OT Education/Plan Discharge Recommendations Plan/Recommendations: Continue POC Treatment Plan/Plan of Care Patient would benefit from OT for education, treatment and training to promote independence in ADL's, mobility, safety and/or upper extremity function for ADL's. Plan of Care: ADL Retraining, Functional Mobility, Group Exercise/Act as Ind, UE Funct Exercise/Act Treatment Duration: August 25, 2019 Frequency: At least 5 of 7 days/Wk (IRF) Estimated Hrs Per Day: 1.5 hours per day Agreement: Yes Rehab Potential: Fair Time/GCodes Start Time: 09:15 Stop Time: 10:15 Total Time Billed (hr/min): 60 Billed Treatment Time 1 visit, ADLx4(60minutes) ADALGISA LIANG OT Aug 20, 2019 11:22
--- NOTE | 2019-08-20 13:40 | Occupational Ther Daily Note ---
OT Current Status-Daily Note Subjective Pt sitting in chair, agrees to treatment. No c/o pain. ADL-Treatment Therapy Code Descriptions/Definitions Functional [place] Measure: 0=Not Assessed/NA 4=Minimal Assistance 1=Total Assistance 5=Supervision or Setup 2=Maximal Assistance 6=Modified [place] 3=Moderate Assistance 7=Complete IndependenceSCALE: Activities may be completed with or without assistive devices. 0-Mcydpxflhe-npwjsms completes the activity by him/herself with no assistance from a helper. 5-Set-up or Clean-up Assistance-helper sets up or cleans up; patient completes activity. [place] assists only prior to or following the activity. 4-Supervision or Touching Assistance-helper provides verbal cues and/or touching/steadying and/or contact guard assistance as patient completes activity. Assistance may be provided throughout the activity or intermittently. 3-Partial/Moderate Assistance-helper does LESS THAN HALF the effort. [place] lifts, holds or supports trunk or limbs, but provides less than half the effort. 2-Substantial/Maximal Assistance-helper does MORE THAN HALF the effort. [place] lifts or holds trunk or limbs and provides more than half the effort. 6-Zupptbfil-fpcurs does ALL the effort. Patient does none of the effort to complete the activity. Or, the assistance of 2 or more helpers is required for the patient to complete the activity. If activity was not attempted, code reason: 7-Patient Refused. 9-Not Applicable-not attempted and the patient did not perform the activity before the current illness, exacerbation or injury. 10-Not Attempted due to Environmental Limitations-(lack of equipment, weather restraints, etc.). 88-Not Attempted due to Medical Conditions or Safety Concerns. Eating (QC): 6 (Pt feeding self lunch without assist) Other Treatment Pt sitting in chair. BP 138/73. Pt performed bilateral UE exercises to increase strength needed for ADLs and transfers. Pt completed shoulder flexion, forward press, biceps curls, and wrist flex/ext x10 reps, 2 sets with 1# dowel elver. Rest breaks between exercises and skilled cues for exercise technique. Bilateral hand sap abap programmer exercises x20 reps with moderate resistance therapy foam to increase sap abap programmer strength. Pt sitting in chair with needs met after session. OT Short Term Goals Short Term Goals Time Frame: Aug 18, 2019 Upper body dressin Lower body dressin Putting on/taking off footwear: 4 OT Mcc Goals Mcc Goals Time Frame: August 25, 2019 Eating (QC): 6 Oral Hygiene (QC): 6 Toileting Hygiene (QC): 6 Shower/Bathe Self (QC): 4 Upper Body Dressing (QC): 6 Lower Body Dressing (QC): 6 On/Off Footwear (QC): 6 Additional Goals: 1-Demonstrate ADL Tasks, 2-Verbalize Understanding, 3- ImproveStrength/Bushra 1=Demonstrate adherence to instructed precautions during ADL tasks. 2=Patient will verbalize/demonstrate understanding of assistive devices/modifications for ADL. 3=Patient will improve strength/tolerance for activity to enable patient to perform ADL's. OT Education/Plan Discharge Recommendations Plan/Recommendations: Continue POC Treatment Plan/Plan of Care Patient would benefit from OT for education, treatment and training to promote independence in ADL's, mobility, safety and/or upper extremity function for ADL's. Plan of Care: ADL Retraining, Functional Mobility, Group Exercise/Act as Ind, UE Funct Exercise/Act Treatment Duration: August 25, 2019 Frequency: At least 5 of 7 days/Wk (IRF) Estimated Hrs Per Day: 1.5 hours per day Agreement: Yes Rehab Potential: Fair Time/GCodes Start Time: 13:00 Stop Time: 13:30 Total Time Billed (hr/min): 30 Billed Treatment Time 1 visit, EXx2(30minutes) ADALGISA LIANG OT Aug 20, 2019 13:40
--- NOTE | 2019-08-20 14:32 | Physical Therapy Daily Note ---
PT Daily Note-Current Subjective Pt sitting in recliner upon arrival. Pt agrees to PT but reports fatigue this afternoon. Dr Dubois arrives to visit with pt. Transfers SCALE: Activities may be completed with or without assistive devices. 0-Wyvqktobbc-baholre completes the activity by him/herself with no assistance from a helper. 5-Set-up or Clean-up Assistance-helper sets up or cleans up; patient completes activity. [place] assists only prior to or following the activity. 4-Supervision or Touching Assistance-helper provides verbal cues and/or touching/steadying and/or contact guard assistance as patient completes activity. Assistance may be provided throughout the activity or intermittently. 3-Partial/Moderate Assistance-helper does LESS THAN HALF the effort. [place] lifts, holds or supports trunk or limbs, but provides less than half the effort. 2-Substantial/Maximal Assistance-helper does MORE THAN HALF the effort. [place] lifts or holds trunk or limbs and provides more than half the effort. 1-Rwxaalaao-mrvyhx does ALL the effort. Patient does none of the effort to complete the activity. Or, the assistance of 2 or more helpers is required for the patient to complete the activity. If activity was not attempted, code reason: 7-Patient Refused. 9-Not Applicable-not attempted and the patient did not perform the activity before the current illness, exacerbation or injury. 10-Not Attempted due to Environmental Limitations-(lack of equipment, weather restraints, etc.). 88-Not Attempted due to Medical Conditions or Safety Concerns. Weight Bearing Right Lower Extremity: Right Full Weight Bearing Left Lower Extremity: Left Full Weight Bearing Treatments Pt asks VOLLEYBALL REFEREE questions regarding progress for DC and improving BP. VOLLEYBALL REFEREE discusses need for increased Sodium so BP can improve and pt can handle increase in activity. VOLLEYBALL REFEREE advised SW will visit with pt after ARU Weekly Mtg. Pt rests at end of Rx. with all needs met, call light in hand. Assessment Current Status: Fair Progress Pt fatigues easily and continues to struggle with keeping BP from dropping with standing. PT Short Term Goals Short Term Goals Time Frame: Aug 18, 2019 Roll Left & Right: 6 Sit to lyin Lying to sitting on side of be: 6 Sit to stand: 4 Chair/dlm-nx-rkmzt transfer: 4 Walk 10 feet: 4 Walk 50 feet with two turns: 4 PT Half-Way Goals Half-Way Goals PT Manager Custom Goals Time Frame: September 01, 2019 Roll Left & Right (QC): 6 Sit to Lying (QC): 6 Lying-Sitting on Side/Bed(QC): 6 Sit to Stand (QC): 6 Chair/Ubo-zu-Bbjgj Xfer(QC): 6 Toilet Transfer (QC): 6 Car Transfer (QC): 6 Does the Patient Walk: No and Walking Goal IS indicated Walk 10 feet (QC): 6 Walk 50ft with 2 Turns (QC): 6 Walk 150 ft (QC): 6 Walking 10ft on Uneven Surface: 6 1 Step (curb) (QC): 4 4 Steps (QC): 4 12 Steps (QC): 88 Picking up an Object (QC): 88 Wheel 50 feet with 2 turns (QC: 9 Wheel 150 feet: 9 PT Plan Problem List Problem List: Activity Tolerance, Functional Strength, Safety, Balance, Gait Treatment/Plan Treatment Plan: Continue Plan of Care Treatment Plan: Bed Mobility, Education, Functional Activity Bush[place], Functional Strength, Group Therapy, Gait, Safety, Therapeutic Exercise, Transfers Treatment Duration: September 01, 2019 Frequency: At least 5 of 7 days/Wk (IRF) Estimated Hrs Per Day: 1.5 hours per day Patient and/or Family Agrees t: Yes Safety Risks/Education Patient Education: Correct Positioning, Safety Issues Teaching Recipient: Patient Teaching Methods: Discussion Response to Teaching: Verbalize Understanding Time/GCodes Time In: 1330 Time Out: 1400 Total Billed Treatment Time: 30 Total Billed Treatment 1, FA x2 (30m) MUMTAZ CAMACHO VOLLEYBALL REFEREE Aug 20, 2019 14:32
[2019-08-20] MEDS: CEFEPIME 2,000 MG/SWFI 20 ML IV PUSH IV SCH ×2 (16:33)
[2019-08-20] MEDS: ENOXAPARIN 40 MG/0.4 ML (LOVENOX) SYR SC SCH (17:04)
[2019-08-20 17:54] VITALS: BP 156/87
[2019-08-20] MEDS: MICONAZOLE NITRATE 2% CRM 30 GM TP SCH (20:35)
[2019-08-20] MEDS: ONDANSETRON 4 MG (ZOFRAN) ORAL DISSOLVE TAB PO PRN (20:39)
[2019-08-20] MEDS: CALCIUM CARBONATE 500 MG (TUMS) TAB.CHEW PO PRN (23:33)
[2019-08-21 06:09] VITALS: BP 112/55
[2019-08-21] MEDS: LIPASE/AMYLASE/PROTEASE (PANCRELIPASE) 5,000 UNITS CAP PO SCH ×4 (06:21→21:07)
[2019-08-21] MEDS: metFORMIN 500 MG (GLUCOPHAGE) TAB PO SCH ×2 (06:21→17:17)
--- NOTE | 2019-08-21 06:48 | NUR ---
THIS RN AND PCT ATTEMPTED TO GET PT OUT OF BED AND INTO BEDSIDE CHAIR. PT BECAME VERY LIGHTHEADED AND BEGAN TO LOSE CONSCIOUSNESS UPON SITTING AT THE SIDE OF THE BED. THIS RN DECIDED TO PLACE PT BACK IN BED FOR PT SAFETY. THIS RN WILL CONTINUE TO MONITOR AND PASS ON PT CONDITION DURING BEDSIDE REPORT TO DAYSHIFT RN.
[2019-08-21] MEDS: FAMOTIDINE 20 MG (PEPCID) TABLET PO SCH (08:26)
[2019-08-21] MEDS: DOCUSATE SODIUM 100 MG (COLACE) CAP PO SCH ×2 (08:26→21:07)
[2019-08-21] MEDS: MAGNESIUM OXIDE (MAG-OX)400 MG TAB PO SCH ×2 (08:26→17:17)
[2019-08-21] MEDS: KCL 10 MEQ TAB (MICRO K) PO SCH ×3 (08:26→17:17)
[2019-08-21] MEDS: DULoxetine 30 MG (CYMBALTA) CAP PO SCH (08:26)
[2019-08-21] MEDS: GABAPENTIN 100 MG (NEURONTIN) CAP PO SCH ×3 (08:26→21:07)
[2019-08-21] MEDS: SENNA W/DOCUSATE (SENOKOT S) TABLET PO SCH ×2 (08:26→21:07)
[2019-08-21] MEDS: FLUDROCORTISONE 0.1 MG (FLORINEF) TAB PO SCH (08:26)
[2019-08-21] MEDS: COLESTIPOL 1 GM (COLESTID) TAB PO SCH ×2 (08:27→21:08)
[2019-08-21] MEDS: MIDODRINE 10 MG (PROAMATINE) TAB PO SCH ×3 (08:28→21:07)
[2019-08-21] MEDS: polyethylene glycoL POWDER 17 GM (MIRALAX) PACK PO SCH ×2 (08:29→21:07)
[2019-08-21] MEDS: NORTHERA PO SCH ×3 (08:29→17:17)
[2019-08-21] MEDS: FLUTICASONE NASAL SPRAY (FLONASE) 16 GM BTL NS SCH (08:29)
--- NOTE | 2019-08-21 09:07 | Cardiology Progress Note ---
Subjective Date Seen by Provider: Aug 21, 2019 Time Seen by Provider: 08:30 Subjective/Events-last exam Patient is sitting up at bedside, reports feeling slightly improved today. Has been working on increasing salt and fluid intake. Denies any dizziness this morning. Review of Systems General: No Chills, No Night Sweats, No Fatigue, No Malaise, No Appetite, No Other HEENT: No Head Aches, No Visual Changes, No Eye Pain, No Ear Pain, No Dysphasia, No Sinus Congestion, No Post Nasal Drip, No Sore Throat, No Other Pulmonary: No Dyspnea, No Cough, No Pleuritic Chest Pain, No Other Cardiovascular: No: Chest Pain, Palpitations, Orthopnea, Paroxysmal Noc. Dyspnea, Edema, Lt Headedness, Other Objective-Cardiology Exam Last Set of Vital Signs Vital Signs 08/21/19 08/21/19 08/21/19 06:09 07:02 09:46 Temp 36.2 Pulse 79 Resp 12 B/P (MAP) 112/55 (74) Pulse Ox 92 O2 Delivery Room Air Capillary Refill : Less Than 3 Seconds I&O Intake and Output 08/21/19 00:00 Intake Total 1000 ml Output Total 725 ml Balance 275 ml Intake Oral 1000 ml Output Urine Total 725 ml General: Alert, Oriented X3, Cooperative HEENT: Atraumatic, PERRLA Neck: Supple, No JVD, No Thyromegaly Lungs: Clear to Auscultation, Normal Air Movement Heart: Regular Rate, Normal S1, Normal S2, No Murmurs Abdomen: Normal Bowel Sounds, Soft, No Tenderness, No Hepatosplenomegaly, No Masses Extremities: No Clubbing, No Cyanosis, No Edema, Normal Pulses, No Tenderness/Swelling Skin: No Rashes, No Breakdown, No Significant Lesion Neuro: Normal Speech, Cranial Nerves 3-12 NL Psych/Mental Status: Mental Status NL, Mood NL A/P-Cardiology Admission Diagnosis POTS Recurrent UTI Generalized weakness HLP Assessment/Plan POTS- patient follows with cardiology at [facility], reporting recent workup done there. I will try to obtain a copy for our records. Currently maintained on Florinef and Midodrine and Northera. Continue to increase fluid and salt intake. Recurrent UTI- CRE, continue on antibiotic, continue to monitor. Generalized weakness, continue with PT/OT HLP, continue to monitor as outpatient DM, management per medical services. Patient was seen and evaluated with Heydi, examination performed, management plan was discussed, agree with the current scribed note, I made few changes to the note using Italic font Patient was seen at bedside, sitting comfortably Reporting improvement, no dizzy spells today Continue to monitor Clinical Quality Measures DVT/VTE Risk/Contraindication: Risk Factor Score Per Nursin RFS Level Per Nursing on Admit: 4+=Very High HEYDI FREED Aug 21, 2019 9:07 am ISRAEL GAMBOA MD Aug 21, 2019 10:15 am
--- NOTE | 2019-08-21 10:11 | PM&R Progress Note ---
Subjective HPI/CC On Admission Date Seen by Provider: Aug 21, 2019 Time Seen by Provider: 10:15 Subjective/Events-last exam Had a presyncopal episode when she got up and around today Increasing fluid intake GERD problems prompting the addition of Protonix 40mg twice daily in addition to her Pepcid twice a day in addition to Tums Monitoring BP variability Denies any other significant issues Reviewed therapy notes Checked meds and labs Conferred with fire extinguisher repairer inspector of Systems General: Fatigue, Malaise Neurological: Incoordination Objective Exam Vital Signs Vital Signs Date Time Temp Pulse Resp B/P (MAP) Pulse Ox O2 Delivery O2 Flow Rate FiO2 08/22/19 05:47 36.4 84 14 99/61 (74) 90 Room Air Capillary Refill : Less Than 3 Seconds General Appearance: No Apparent Distress, WD/WN, Chronically ill, Thin, Other (frail) HEENT: PERRL/EOMI, Normal ENT Inspection, Pharynx Normal Neck: Full Range of Motion, Normal Inspection, Non Tender, Supple, Carotid Bruit Respiratory: Chest Non Tender, Lungs Clear, Normal Breath Sounds, No Accessory Muscle Use, No Respiratory Distress Cardiovascular: Regular Rate, Rhythm, No Edema, No Gallop, No JVD, No Murmur, Normal Peripheral Pulses Gastrointestinal: Normal Bowel Sounds, No Organomegaly, No Pulsatile Mass, Non Tender, Soft Back: Normal Inspection, No CVA Tenderness, No Vertebral Tenderness Extremity: Normal Capillary Refill, Normal Inspection, Normal Range of Motion, Non Tender, No Calf Tenderness, No Pedal Edema Neurologic/Psychiatric: Alert, Oriented x3, No Motor/Sensory Deficits (legs 4/5 strength), Normal Mood/Affect Skin: Normal Color, Warm/Dry Lymphatic: No Adenopathy Results/Procedures Lab Laboratory Tests 08/22/19 05:02 Patient resulted labs reviewed. FIM Transfers Therapy Code Descriptions/Definitions Functional [place] Measure: 0=Not Assessed/NA 4=Minimal Assistance 1=Total Assistance 5=Supervision or Setup 2=Maximal Assistance 6=Modified [place] 3=Moderate Assistance 7=Complete IndependenceSCALE: Activities may be completed with or without assistive devices. 1-Sjuzaogwze-sdnmayt completes the activity by him/herself with no assistance from a helper. 5-Set-up or Clean-up Assistance-helper sets up or cleans up; patient completes activity. [place] assists only prior to or following the activity. 4-Supervision or Touching Assistance-helper provides verbal cues and/or touching/steadying and/or contact guard assistance as patient completes activity. Assistance may be provided throughout the activity or intermittently. 3-Partial/Moderate Assistance-helper does LESS THAN HALF the effort. [place] lifts, holds or supports trunk or limbs, but provides less than half the effort. 2-Substantial/Maximal Assistance-helper does MORE THAN HALF the effort. [place] lifts or holds trunk or limbs and provides more than half the effort. 8-Ghvvxqcxf-ffwvyq does ALL the effort. Patient does none of the effort to complete the activity. Or, the assistance of 2 or more helpers is required for the patient to complete the activity. If activity was not attempted, code reason: 7-Patient Refused. 9-Not Applicable-not attempted and the patient did not perform the activity before the current illness, exacerbation or injury. 10-Not Attempted due to Environmental Limitations-(lack of equipment, weather re straints, etc.). 88-Not Attempted due to Medical Conditions or Safety Concerns. Roll Left to Right (QC): 3 Sit to Lying (QC): 4 Sit to Stand (QC): 4 Chair/Zmv-zg-Pibqm Xfer(QC): 3 Car Transfer (QC): 4 Gait Training Does the Patient Walk?: Yes Distance: 10'x3 Walk 10 feet (QC): 4 Walk 50 ft with 2 Turns(QC): 88 Walk 150 ft (QC): 88 Walking 10ft/uneven surface-QC: 88 Gait Persons Needed: 1 Gait Assistive Device: Parallel Bars Wheelchair Training Does the Pt Use a Wheelchair?: Yes Distance: 150' Wheel 50 ft with 2 turns (QC): 4 Wheel 150 ft (QC): 4 Type of Wheelchair: Manual Stair Training 1 Step (curb) (QC): 88 4 Steps (QC): 88 12 Steps (QC): 88 Balance Picking up an Object (QC): 88 ADL-Treatment Eating (QC): 6 (Pt feeding self lunch without assist) Oral Hygiene (QC): 5 Bathing Location: L Arm, R Arm, Chest, Abdomen Shower/Bathe Self (QC): 3 Upper Body Dressing (QC): 5 Lower Body Dressing (QC): 3 On/Off Footwear (QC): 4 (CGA while seated on side of bed to doff/don slipper socks.) Toileting Hygiene (QC): 3 (Min assist in stance for balance while pt. cleanses self after toileting.) Toilet Transfer (QC): 3 (Min assist.) Assessment/Plan Assessment and Plan Assess & Plan/Chief Complaint Assessment: (1A) Debility with major fall risk requiring IRF (1) s/p Sepsis 2 weeks ago on med-surg (2) Acute UTI recurrent type an now on Cefepime due to resistance (3) Abdominal pain (4) Hypokalemia (5) Neurogenic bladder-self caths maintained Urology at [facility] regular basis (6) Headache (7) Diabetes mellitus (8) Unsteady gait with POTS (Postoral orthostasis tachycardia syndrome) (9) Physical debility (10) DVT prophylaxis (11) Low back pain chronic w/h/o lumbar spine surgery (12) DM (13) Vit B12 def Plan: Labs and IVF due to syncopal episode from exacerbation of POTS Maintain on home meds Permissive hypertension due to severity of her orthostasis when standing up Pain control Bowel regimen to maintain Intensive therapies Straight in/out caths prn Cefepime Cardiology consultation is appreciated Fall risk (1) Physical debility Status: Acute (2) Unsteady gait Status: Acute (3) POTS (postural orthostatic tachycardia syndrome) Status: Chronic (4) Acute UTI Status: Acute (5) History of UTI Status: Chronic (6) Weakness Status: Chronic (7) Hypokalemia Status: Acute (8) Diabetes mellitus Status: Chronic (9) Neurogenic bladder Status: Chronic (10) DVT prophylaxis Status: Acute (11) Headache Status: Resolved Resolution Date/Time: 08/07/19 @ 12:08 (12) Low back pain (13) GERD (gastroesophageal reflux disease) Status: Chronic (14) Neuropathy MALIKA VÁZQUEZ DO Aug 21, 2019 10:11
--- NOTE | 2019-08-21 10:30 | NUR ---
C/O INDIGESTION. DR. VÁZQUEZ INFORMED. NEW ORDER FOR PROTONIX- 40 MG PO BID... IN ADDITION TO SCHEDULED PEPCID AND PRN TUMS.
[2019-08-21] MEDS: PANTOPRAZOLE 40 MG (PROTONIX) TAB PO SCH ×2 (10:52→21:07)
--- NOTE | 2019-08-21 10:54 | Physical Therapy Daily Note ---
PT Daily Note-Current Subjective Pt reclined in recliner upon arrival. Pt agrees to PT. Pain Numeric Pain Scale: 6 Location: Anterior Location Body Site: Head Pain Description: Ache Mental Status Patient Orientation: Person, Place, Situation Attachments: Other-See Comments (MARITZA gaines & KWAME Rangel) Transfers SCALE: Activities may be completed with or without assistive devices. 9-Cmnevzbjlx-juzxqgm completes the activity by him/herself with no assistance from a helper. 5-Set-up or Clean-up Assistance-helper sets up or cleans up; patient completes activity. [place] assists only prior to or following the activity. 4-Supervision or Touching Assistance-helper provides verbal cues and/or touching/steadying and/or contact guard assistance as patient completes activity. Assistance may be provided throughout the activity or intermittently. 3-Partial/Moderate Assistance-helper does LESS THAN HALF the effort. [place] lifts, holds or supports trunk or limbs, but provides less than half the effort. 2-Substantial/Maximal Assistance-helper does MORE THAN HALF the effort. [place] lifts or holds trunk or limbs and provides more than half the effort. 1-Fzhkaqvkh-qmoopm does ALL the effort. Patient does none of the effort to complete the activity. Or, the assistance of 2 or more helpers is required for the patient to complete the activity. If activity was not attempted, code reason: 7-Patient Refused. 9-Not Applicable-not attempted and the patient did not perform the activity before the current illness, exacerbation or injury. 10-Not Attempted due to Environmental Limitations-(lack of equipment, weather restraints, etc.). 88-Not Attempted due to Medical Conditions or Safety Concerns. Sit to Stand (QC): 4 Weight Bearing Right Lower Extremity: Right Full Weight Bearing Left Lower Extremity: Left Full Weight Bearing Gait Training Does the Patient Walk?: No and Walking Goal IS indicated Exercises Seated Therapy Exercises: Ankle pumps, Long arc quads, Hip flexion, Kicking activity, Glut set Seated Reps: 20 (2 sets of 20) Treatments Pt just finishing with SW upon arrival. Pt & ELEVATOR TROUBLESHOOTER discuss what Therapy will look like over the next few days as DC is set for Sunday (08/24) at this time. Pt completes Seated Ex. Pt attempts to stand from recliner, taking extended time to allow body to gain its bearings but pt is not able to tolerate more than a few seconds before needing to sit down. Pt takes RB then completes Seated EX again. ELEVATOR TROUBLESHOOTER gives encouragement to continue to increase fluid and sodium intake. Pt resting at end of Rx with all needs met, call light in hand. Assessment Current Status: Fair Progress BP continues to limit activity tolerance. PT Short Term Goals Short Term Goals Time Frame: Aug 18, 2019 Roll Left & Right: 6 Sit to lyin Lying to sitting on side of be: 6 Sit to stand: 4 Chair/qix-rq-jqvxi transfer: 4 Walk 10 feet: 4 Walk 50 feet with two turns: 4 PT Machine Shop Worker Goals Chcf Goals PT Chcf Goals Time Frame: September 01, 2019 Roll Left & Right (QC): 6 Sit to Lying (QC): 6 Lying-Sitting on Side/Bed(QC): 6 Sit to Stand (QC): 6 Chair/Thl-uv-Amjfo Xfer(QC): 6 Toilet Transfer (QC): 6 Car Transfer (QC): 6 Does the Patient Walk: No and Walking Goal IS indicated Walk 10 feet (QC): 6 Walk 50ft with 2 Turns (QC): 6 Walk 150 ft (QC): 6 Walking 10ft on Uneven Surface: 6 1 Step (curb) (QC): 4 4 Steps (QC): 4 12 Steps (QC): 88 Picking up an Object (QC): 88 Wheel 50 feet with 2 turns (QC: 9 Wheel 150 feet: 9 PT Plan Problem List Problem List: Activity Tolerance, Functional Strength, Safety, Balance, Gait, Transfer Treatment/Plan Treatment Plan: Continue Plan of Care Treatment Plan: Bed Mobility, Education, Functional Activity [place], Functional Strength, Group Therapy, Gait, Safety, Therapeutic Exercise, Transfers Treatment Duration: September 01, 2019 Frequency: At least 5 of 7 days/Wk (IRF) Estimated Hrs Per Day: 1.5 hours per day Patient and/or Family Agrees t: Yes Safety Risks/Education Patient Education: Transfer Techniques, Correct Positioning, Safety Issues Teaching Recipient: Patient Teaching Methods: Discussion Response to Teaching: Verbalize Understanding Time/GCodes Time In: 945 Time Out: 1045 Total Billed Treatment Time: 60 Total Billed Treatment 1, FA x2 (25m) & EX x2 (35m) MUMTAZ CAMACHO ELEVATOR TROUBLESHOOTER Aug 21, 2019 10:54
--- NOTE | 2019-08-21 12:00 | NUR ---
STRAIGHT CATH DONE PER PATIENT'S REQUEST. 225 MLS OF URINE IMMEDIATE RETURN. PATIENT TOLERATED WELL.
--- NOTE | 2019-08-21 13:18 | Occupational Ther Daily Note ---
OT Current Status-Daily Note Subjective No pain reported. Pt. states that she is very tired. Appearance Pt. in bed. Agrees to work with OT. Mental Status/Objective Patient Orientation: Person, Place ADL-Treatment Therapy Code Descriptions/Definitions Functional [place] Measure: 0=Not Assessed/NA 4=Minimal Assistance 1=Total Assistance 5=Supervision or Setup 2=Maximal Assistance 6=Modified [place] 3=Moderate Assistance 7=Complete IndependenceSCALE: Activities may be completed with or without assistive devices. 4-Llwnweuxem-ujbmhfg completes the activity by him/herself with no assistance from a helper. 5-Set-up or Clean-up Assistance-helper sets up or cleans up; patient completes activity. [place] assists only prior to or following the activity. 4-Supervision or Touching Assistance-helper provides verbal cues and/or touching/steadying and/or contact guard assistance as patient completes activity. Assistance may be provided throughout the activity or intermittently. 3-Partial/Moderate Assistance-helper does LESS THAN HALF the effort. [place] l ifts, holds or supports trunk or limbs, but provides less than half the effort. 2-Substantial/Maximal Assistance-helper does MORE THAN HALF the effort. [place] lifts or holds trunk or limbs and provides more than half the effort. 3-Idshyqvad-eqyhoz does ALL the effort. Patient does none of the effort to complete the activity. Or, the assistance of 2 or more helpers is required for t he patient to complete the activity. If activity was not attempted, code reason: 7-Patient Refused. 9-Not Applicable-not attempted and the patient did not perform the activity before the current illness, exacerbation or injury. 10-Not Attempted due to Environmental Limitations-(lack of equipment, weather restraints, etc.). 88-Not Attempted due to Medical Conditions or Safety Concerns. Shower/Bathe Self (QC): 4 (SBA while seated in chair.) Upper Body Dressing (QC): 4 (SBA) Lower Body Dressing (QC): 3 (Pt. able to don pants over feet and up to thighs. In stance, required mod assist to don over hips. Pt. able to adjust them again once seated.) On/Off Footwear: 4 Other Treatment Pt. agrees to treatment. Transfers with increased time needed, supine-sit with SBA. Sit-stand with min assist and transfer to chair. Pt. completed sponge bath up in chair. Declined showering. Pt. needs constant rest breaks as she reports significant fatigue with ADLs. After bathing/dressing, pt. attempted to brush her hair but unable to thoroughly reach in back. OT did this for her. OT assisted with reclining chair and all needs met in room. Education OT Patient Education: Correct positioning, Modified ADL techniques, Progress toward Goal/Update tx plan, Purpose of tx/functional activities, Reviewed precautions, Rehab process, Transfer techniques Teaching Recipient: Patient Teaching Methods: Demonstration, Discussion Response to Teaching: Verbalize Understanding, Return Demonstration OT Short Term Goals Short Term Goals Time Frame: Aug 18, 2019 Upper body dressin Lower body dressin Putting on/taking off footwear: 4 OT Medical Secretary Teacher Goals Medical Secretary Teacher Goals Time Frame: August 25, 2019 Eating (QC): 6 Oral Hygiene (QC): 6 Toileting Hygiene (QC): 6 Shower/Bathe Self (QC): 4 Upper Body Dressing (QC): 6 Lower Body Dressing (QC): 6 On/Off Footwear (QC): 6 Additional Goals: 1-Demonstrate ADL Tasks, 2-Verbalize Understanding, 3- ImproveStrength/[place] 1=Demonstrate adherence to instructed precautions during ADL tasks. 2=Patient will verbalize/demonstrate understanding of assistive devices/modifications for ADL. 3=Patient will improve strength/tolerance for activity to enable patient to perform ADL's. OT Education/Plan Problem List/Assessment Assessment: Decreased Activ Tolerance, Decreased UE Strength, Dependent Transfers, Impaired Bed Mobility, Impaired Funct Balance, Impaired I ADL's, Impaired Self-Care Skills Discharge Recommendations Plan/Recommendations: Continue POC Therapy Discharge Recommendati: Home & Family, Post Acute OT Treatment Plan/Plan of Care Treatment,Training & Education: Yes Patient would benefit from OT for education, treatment and training to promote independence in ADL's, mobility, safety and/or upper extremity function for ADL's. Plan of Care: ADL Retraining, Functional Mobility, Group Exercise/Act as Ind, UE Funct Exercise/Act Treatment Duration: August 25, 2019 Frequency: At least 5 of 7 days/Wk (IRF) Estimated Hrs Per Day: 1.5 hours per day Agreement: Yes Rehab Potential: Fair Time/GCodes Start Time: 08:30 Stop Time: 09:30 Total Time Billed (hr/min): 60 Billed Treatment Time 1, ADL x 4 MARTINA IQBAL OT Aug 21, 2019 13:18
--- NOTE | 2019-08-21 13:32 | Physical Therapy Daily Note ---
PT Daily Note-Current Subjective Pt laying Supine in bed upon arrival. Pt reports headache still this afternoon. Pt agrees to Supine Ex. Pain Numeric Pain Scale: 6 Location: Anterior Location Body Site: Head Pain Description: Ache Mental Status Patient Orientation: Person, Place, Situation Attachments: Other-See Comments (MARITZA gaines and Magdiel FRIEDMAN) Transfers SCALE: Activities may be completed with or without assistive devices. 9-Lzoosuuzxf-opxolvq completes the activity by him/herself with no assistance from a helper. 5-Set-up or Clean-up Assistance-helper sets up or cleans up; patient completes activity. [place] assists only prior to or following the activity. 4-Supervision or Touching Assistance-helper provides verbal cues and/or touching/steadying and/or contact guard assistance as patient completes activity. Assistance may be provided throughout the activity or intermittently. 3-Partial/Moderate Assistance-helper does LESS THAN HALF the effort. [place] lifts, holds or supports trunk or limbs, but provides less than half the effort. 2-Substantial/Maximal Assistance-helper does MORE THAN HALF the effort. [place] lifts or holds trunk or limbs and provides more than half the effort. 8-Cuiczhmai-sdoqpw does ALL the effort. Patient does none of the effort to complete the activity. Or, the assistance of 2 or more helpers is required for the patient to complete the activity. If activity was not attempted, code reason: 7-Patient Refused. 9-Not Applicable-not attempted and the patient did not perform the activity before the current illness, exacerbation or injury. 10-Not Attempted due to Environmental Limitations-(lack of equipment, weather restraints, etc.). 88-Not Attempted due to Medical Conditions or Safety Concerns. Weight Bearing Right Lower Extremity: Right Full Weight Bearing Left Lower Extremity: Left Full Weight Bearing Exercises Supine Ex: Ankle pumps, Quad Set, Glut sets, Heel Slides, Straight leg raise, Hip abd/add Supine Reps: 20 Treatments Pt completes Supine Ex with RB as needed. Pt resting at end of Rx with all needs met, call light next to pt. Assessment Current Status: Fair Progress Pt very fatigued and asks for RB. PT Short Term Goals Short Term Goals Time Frame: Aug 18, 2019 Roll Left & Right: 6 Sit to lyin Lying to sitting on side of be: 6 Sit to stand: 4 Chair/qnp-sa-qddtl transfer: 4 Walk 10 feet: 4 Walk 50 feet with two turns: 4 PT Tack Puller Machine Goals Tack Puller Machine Goals PT Tack Puller Machine Goals Time Frame: September 01, 2019 Roll Left & Right (QC): 6 Sit to Lying (QC): 6 Lying-Sitting on Side/Bed(QC): 6 Sit to Stand (QC): 6 Chair/Nlp-ef-Hitch Xfer(QC): 6 Toilet Transfer (QC): 6 Car Transfer (QC): 6 Does the Patient Walk: No and Walking Goal IS indicated Walk 10 feet (QC): 6 Walk 50ft with 2 Turns (QC): 6 Walk 150 ft (QC): 6 Walking 10ft on Uneven Surface: 6 1 Step (curb) (QC): 4 4 Steps (QC): 4 12 Steps (QC): 88 Picking up an Object (QC): 88 Wheel 50 feet with 2 turns (QC: 9 Wheel 150 feet: 9 PT Plan Problem List Problem List: Activity Tolerance Treatment/Plan Treatment Plan: Continue Plan of Care Treatment Plan: Bed Mobility, Education, Functional Activity [place], Functional Strength, Group Therapy, Gait, Safety, Therapeutic Exercise, Transfers Treatment Duration: September 01, 2019 Frequency: At least 5 of 7 days/Wk (IRF) Estimated Hrs Per Day: 1.5 hours per day Patient and/or Family Agrees t: Yes Safety Risks/Education Patient Education: Correct Positioning, Safety Issues Teaching Recipient: Patient Teaching Methods: Discussion Response to Teaching: Verbalize Understanding Time/GCodes Time In: 1300 Time Out: 1330 Total Billed Treatment Time: 30 Total Billed Treatment 1, EX x2 (30m) MUMTAZ CAMACHO CIVIL ENGINEERING TECHNICIAN Aug 21, 2019 13:32
--- NOTE | 2019-08-21 14:14 | Occupational Ther Daily Note ---
OT Current Status-Daily Note Subjective Pt alert, lying in bed. Pt agrees to therapy. Pt c/o headache, nrsg knows. Mental Status/Objective Patient Orientation: Person, Place, Time, Situation Attachments: IV, Telemetry ADL-Treatment Therapy Code Descriptions/Definitions Functional [place] Measure: 0=Not Assessed/NA 4=Minimal Assistance 1=Total Assistance 5=Supervision or Setup 2=Maximal Assistance 6=Modified [place] 3=Moderate Assistance 7=Complete IndependenceSCALE: Activities may be completed with or without assistive devices. 7-Mggtydjqtl-ehpfzhu completes the activity by him/herself with no assistance from a helper. 5-Set-up or Clean-up Assistance-helper sets up or cleans up; patient completes activity. [place] assists only prior to or following the activity. 4-Supervision or Touching Assistance-helper provides verbal cues and/or touching/steadying and/or contact guard assistance as patient completes activity. Assistance may be provided throughout the activity or intermittently. 3-Partial/Moderate Assistance-helper does LESS THAN HALF the effort. [place] lifts, holds or supports trunk or limbs, but provides less than half the effort. 2-Substantial/Maximal Assistance-helper does MORE THAN HALF the effort. [place] lifts or holds trunk or limbs and provides more than half the effort. 9-Mfpdjlkkg-edupuw does ALL the effort. Patient does none of the effort to complete the activity. Or, the assistance of 2 or more helpers is required for the patient to complete the activity. If activity was not attempted, code reason: 7-Patient Refused. 9-Not Applicable-not attempted and the patient did not perform the activity before the current illness, exacerbation or injury. 10-Not Attempted due to Environmental Limitations-(lack of equipment, weather restraints, etc.). 88-Not Attempted due to Medical Conditions or Safety Concerns. Other Treatment Pt completed B UE strengthening tasks to increase strength and activity tolerance for daily functional tasks. Pt requires skilled instruction to complete exercises with correct technique for positioning. Pt able to complete 3 out 6 exercises with 1# wt 2 sets 10 reps. Rest of exercises 1 set 10 reps. After therapy, pt stated that she was tired and ready to sleep. Call light/phone in reach. All needs met in room. OT Short Term Goals Short Term Goals Time Frame: Aug 18, 2019 Upper body dressin Lower body dressin Putting on/taking off footwear: 4 OT Security Software Engineer Goals Security Software Engineer Goals Time Frame: August 25, 2019 Eating (QC): 6 Oral Hygiene (QC): 6 Toileting Hygiene (QC): 6 Shower/Bathe Self (QC): 4 Upper Body Dressing (QC): 6 Lower Body Dressing (QC): 6 On/Off Footwear (QC): 6 Additional Goals: 1-Demonstrate ADL Tasks, 2-Verbalize Understanding, 3-ImproveStrength/[place] 1=Demonstrate adherence to instructed precautions during ADL tasks. 2=Patient will verbalize/demonstrate understanding of assistive devices/modifications for ADL. 3=Patient will improve strength/tolerance for activity to enable patient to perform ADL's. OT Education/Plan Problem List/Assessment Assessment: Decreased Activ Tolerance, Decreased UE Strength Discharge Recommendations Plan/Recommendations: Continue POC Treatment Plan/Plan of Care Patient would benefit from OT for education, treatment and training to promote independence in ADL's, mobility, safety and/or upper extremity function for ADL's. Plan of Care: ADL Retraining, Functional Mobility, Group Exercise/Act as Ind, UE Funct Exercise/Act Treatment Duration: August 25, 2019 Frequency: At least 5 of 7 days/Wk (IRF) Estimated Hrs Per Day: 1.5 hours per day Agreement: Yes Rehab Potential: Fair Time/GCodes Start Time: 13:40 Stop Time: 14:10 Total Time Billed (hr/min): 30 Billed Treatment Time 1 visit-EX 2 (30 min) RIVAS BALBUENA Aug 21, 2019 14:14
[2019-08-21] MEDS: CEFEPIME 2,000 MG/SWFI 20 ML IV PUSH IV SCH ×2 (15:32)
--- NOTE | 2019-08-21 15:59 | NUR ---
CM/SS WEEKLY TEAM CONFERENCE SUMMARY Met with patient this a.m. to review Summary, patient is in agreement to team recommendation for target discharge Sunday08/25/19. Patient continues to have what may be her baseline POTS issues, she has a wheelchair at home she can use as needed and again confirms her spouse can resume care of her as before. C: Current with [facility], RN PT OT, suspended during hospitalization. Will resume at discharge.
[2019-08-21 16:33] VITALS: BP 129/77
[2019-08-21] MEDS: ENOXAPARIN 40 MG/0.4 ML (LOVENOX) SYR SC SCH (17:17)
--- NOTE | 2019-08-21 18:30 | NUR ---
STRAIGHT CATH DONE PER PATIENT'S REQUEST. 350 MLS OF URINE IMMEDIATE RETURN. PATIENT TOLERATED WELL.
[2019-08-21] MEDS: MICONAZOLE NITRATE 2% CRM 30 GM TP SCH (21:09)
[2019-08-22 05:07] LABS: BASOPHILS % (AUTO) 0 % (0-10); EOSINOPHILS # (AUTO) 0.1 10^3/uL (0.0-0.3); EOSINOPHILS % (AUTO) 1 % (0-10); HEMATOCRIT 38 % (35-52); LYMPHOCYTES # (AUTO) 2.3 X 10^3 (1.0-4.0); LYMPHOCYTES % (AUTO) 22 % (12-44); MEAN CORPUSCULAR HEMOGLOBIN 30 PG (25-34); MEAN CORPUSCULAR HGB CONC 32 G/DL (32-36); MEAN CORPUSCULAR VOLUME 93 FL (80-99); MEAN PLATELET VOLUME 8.6 FL (7.4-10.4); MONOCYTES # (AUTO) 0.9 X 10^3 (0.0-1.0); MONOCYTES % (AUTO) 9 % (0-12); NEUTROPHILS # (AUTO) 7.1 X 10^3 (1.8-7.8); NEUTROPHILS % (AUTO) 68 % (42-75); PLATELET COUNT 371 10^3/uL (130-400); RED CELL DISTRIBUTION WIDTH 12.9 % (10.0-14.5); WHITE BLOOD COUNT 10.4 10^3/uL (4.3-11.0)
[2019-08-22 05:22] LABS: ALBUMIN 3.4 GM/DL (3.2-4.5); BILIRUBIN,TOTAL 0.3 MG/DL (0.1-1.0); CALCIUM 9.6 MG/DL (8.5-10.1); POTASSIUM 4.2 MMOL/L (3.6-5.0); TOTAL PROTEIN 6.8 GM/DL (6.4-8.2)
[2019-08-22 05:47] VITALS: BP 99/61
[2019-08-22] MEDS: metFORMIN 500 MG (GLUCOPHAGE) TAB PO SCH ×2 (06:26→16:39)
[2019-08-22] MEDS: LIPASE/AMYLASE/PROTEASE (PANCRELIPASE) 5,000 UNITS CAP PO SCH ×4 (06:26→21:58)
[2019-08-22] MEDS: DULoxetine 30 MG (CYMBALTA) CAP PO SCH (09:02)
[2019-08-22] MEDS: GABAPENTIN 100 MG (NEURONTIN) CAP PO SCH ×3 (09:02→21:58)
[2019-08-22] MEDS: SENNA W/DOCUSATE (SENOKOT S) TABLET PO SCH ×2 (09:02→21:57)
[2019-08-22] MEDS: MIDODRINE 10 MG (PROAMATINE) TAB PO SCH ×3 (09:02→21:57)
[2019-08-22] MEDS: polyethylene glycoL POWDER 17 GM (MIRALAX) PACK PO SCH ×2 (09:03→21:57)
[2019-08-22] MEDS: FLUDROCORTISONE 0.1 MG (FLORINEF) TAB PO SCH (09:03)
[2019-08-22] MEDS: FAMOTIDINE 20 MG (PEPCID) TABLET PO SCH (09:03)
[2019-08-22] MEDS: MAGNESIUM OXIDE (MAG-OX)400 MG TAB PO SCH ×2 (09:03→16:39)
[2019-08-22] MEDS: DOCUSATE SODIUM 100 MG (COLACE) CAP PO SCH ×2 (09:03→21:57)
[2019-08-22] MEDS: PANTOPRAZOLE 40 MG (PROTONIX) TAB PO SCH ×2 (09:03→21:57)
[2019-08-22] MEDS: KCL 10 MEQ TAB (MICRO K) PO SCH ×3 (09:03→16:39)
[2019-08-22] MEDS: NORTHERA PO SCH ×3 (09:04→17:12)
[2019-08-22] MEDS: FLUTICASONE NASAL SPRAY (FLONASE) 16 GM BTL NS SCH (10:11)
[2019-08-22] MEDS: COLESTIPOL 1 GM (COLESTID) TAB PO SCH ×2 (10:12→21:58)
--- NOTE | 2019-08-22 10:27 | Physical Therapy Daily Note ---
PT Daily Note-Current Subjective Pt. in bed, trying to eat, agrees to Rx. States she may be a little better today. Feels she can be up in chair with good tolerance and try some sit to stands and exercise Pain Numeric Pain Scale: 5-Moderate Pain Location: Medial Location Body Site: Head (headache) Pain Description: Ache Comment: pt. c/o she has a backache but this is an everyday affair and seems to be p Mental Status Patient Orientation: Person, Place, Time, Situation Transfers SCALE: Activities may be completed with or without assistive devices. 3-Fyskhvvnwp-tglwxwn completes the activity by him/herself with no assistance from a helper. 5-Set-up or Clean-up Assistance-helper sets up or cleans up; patient completes activity. [place] assists only prior to or following the activity. 4-Supervision or Touching Assistance-helper provides verbal cues and/or touching/steadying and/or contact guard assistance as patient completes activity. Assistance may be provided throughout the activity or intermittently. 3-Partial/Moderate Assistance-helper does LESS THAN HALF the effort. [place] lifts, holds or supports trunk or limbs, but provides less than half the effort. 2-Substantial/Maximal Assistance-helper does MORE THAN HALF the effort. [place] lifts or holds trunk or limbs and provides more than half the effort. 0-Vqdjhlfuc-wmdwht does ALL the effort. Patient does none of the effort to compl ete the activity. Or, the assistance of 2 or more helpers is required for the patient to complete the activity. If activity was not attempted, code reason: 7-Patient Refused. 9-Not Applicable-not attempted and the patient did not perform the activity before the current illness, exacerbation or injury. 10-Not Attempted due to Environmental Limitations-(lack of equipment, weather restraints, etc.). 88-Not Attempted due to Medical Conditions or Safety Concerns. Weight Bearing Right Lower Extremity: Right Full Weight Bearing Left Lower Extremity: Left Full Weight Bearing Gait Training pt. took 2-3 small steps in dance fashion bed to recliner with no c/o dizziness but declined trial of further steps with FWW etc Exercises Supine Ex: Bridging, Ankle pumps, Quad Set, Rolling, Glut sets, Heel Slides, Short Arc Quads, Scooting, Straight leg raise, Hip abd/add Supine Reps: 15 Seated Therapy Exercises: Ankle pumps, Sit to stand (5), Long arc quads, Hip flexion, Hip abd/add Seated Reps: 10 Treatments in recliner, pt. did 3 sit to stands with fair tolerance but asked to sit as her headache was main issue. Nurse brought pain meds Assessment Current Status: Fair Progress still declines gait secondary to c/o dizziness in stance, did not c/o dizziness in sitting or during sup to sit PT Short Term Goals Short Term Goals Time Frame: Aug 18, 2019 Roll Left & Right: 6 Sit to lyin Lying to sitting on side of be: 6 Sit to stand: 4 Chair/qni-dj-ajzem transfer: 4 Walk 10 feet: 4 Walk 50 feet with two turns: 4 PT Penitentiary Goals Press Cutter Goals PT Penitentiary Goals Time Frame: September 01, 2019 Roll Left & Right (QC): 6 Sit to Lying (QC): 6 Lying-Sitting on Side/Bed(QC): 6 Sit to Stand (QC): 6 Chair/Zkl-hu-Focgg Xfer(QC): 6 Toilet Transfer (QC): 6 Car Transfer (QC): 6 Does the Patient Walk: No and Walking Goal IS indicated Walk 10 feet (QC): 6 Walk 50ft with 2 Turns (QC): 6 Walk 150 ft (QC): 6 Walking 10ft on Uneven Surface: 6 1 Step (curb) (QC): 4 4 Steps (QC): 4 12 Steps (QC): 88 Picking up an Object (QC): 88 Wheel 50 feet with 2 turns (QC: 9 Wheel 150 feet: 9 PT Plan Treatment/Plan Treatment Plan: Continue Plan of Care Treatment Plan: Bed Mobility, Education, Functional Activity [place], Functional Strength, Group Therapy, Gait, Safety, Therapeutic Exercise, Transfers Treatment Duration: September 01, 2019 Frequency: At least 5 of 7 days/Wk (IRF) Estimated Hrs Per Day: 1.5 hours per day Patient and/or Family Agrees t: Yes Safety Risks/Education Patient Education: Transfer Techniques, Correct Positioning, Disease Process, Safety Issues Teaching Recipient: Patient Teaching Methods: Demonstration, Discussion Response to Teaching: Verbalize Understanding, Return Demonstration, Reinforcement Needed Time/GCodes Time In: 930 Time Out: 1030 Total Billed Treatment Time: 60 Total Billed Treatment 1,EX35m,FA25m ZARA ARNDT BACCARAT MANAGER August 22, 2019 10:27
--- NOTE | 2019-08-22 10:41 | Occupational Ther Daily Note ---
OT Current Status-Daily Note Subjective Pt resting in bed, agrees to therapy. States she feels fatigued today and has a headache rated 6/10. Pt also reports chronic back pain. RN notified pt requests pain medication ADL-Treatment Pt supine to sit with SBA and increased time. Pt sat EOB for sponge bath. Declined to transfer to chair at this time. Doff shirt with SBA. Pt bathed upper body with set up and increased time. Pt bathed lower body with SBA while seated. Don pullover shirt with SBA. Pt able to thread bilateral LE into pants with SBA. Stood with min assist for balance during pant hike. Pt fatigues quickly with activity and takes frequent rest breaks secondary to decreased activity tolerance. Much increased time required for ADL tasks. Pt combed hair with SBA. Sit to supine with SBA. Pt able to scoot self up in bed. Pt able to feed self breakfast independently while sitting with HOB raised. All needs met after session. Therapy Code Descriptions/Definitions Functional [place] Measure: 0=Not Assessed/NA 4=Minimal Assistance 1=Total Assistance 5=Supervision or Setup 2=Maximal Assistance 6=Modified [place] 3=Moderate Assistance 7=Complete IndependenceSCALE: Activities may be completed with or without assistive devices. 0-Qylxonmyon-nugjmly completes the activity by him/herself with no assistance from a helper. 5-Set-up or Clean-up Assistance-helper sets up or cleans up; patient completes activity. [place] assists only prior to or following the activity. 4-Supervision or Touching Assistance-helper provides verbal cues and/or touching/steadying and/or contact guard assistance as patient completes activity. Assistance may be provided throughout the activity or intermittently. 3-Partial/Moderate Assistance-helper does LESS THAN HALF the effort. [place] lifts, holds or supports trunk or limbs, but provides less than half the effort. 2-Substantial/Maximal Assistance-helper does MORE THAN HALF the effort. [place] lifts or holds trunk or limbs and provides more than half the effort. 7-Mdalyozqm-kfcqyc does ALL the effort. Patient does none of the effort to complete the activity. Or, the assistance of 2 or more helpers is required for the patient to complete the activity. If activity was not attempted, code reason: 7-Patient Refused. 9-Not Applicable-not attempted and the patient did not perform the activity before the current illness, exacerbation or injury. 10-Not Attempted due to Environmental Limitations-(lack of equipment, weather restraints, etc.). 88-Not Attempted due to Medical Conditions or Safety Concerns. Eating (QC): 6 Shower/Bathe Self (QC): 4 Upper Body Dressing (QC): 4 Lower Body Dressing (QC): 3 OT Short Term Goals Short Term Goals Time Frame: Aug 18, 2019 Upper body dressin Lower body dressin Putting on/taking off footwear: 4 OT Machining Manager Goals Fdc Goals Time Frame: August 25, 2019 Eating (QC): 6 Oral Hygiene (QC): 6 Toileting Hygiene (QC): 6 Shower/Bathe Self (QC): 4 Upper Body Dressing (QC): 6 Lower Body Dressing (QC): 6 On/Off Footwear (QC): 6 Additional Goals: 1-Demonstrate ADL Tasks, 2-Verbalize Understanding, 3-ImproveStrength/[place] 1=Demonstrate adherence to instructed precautions during ADL tasks. 2=Patient will verbalize/demonstrate understanding of assistive devices/modifications for ADL. 3=Patient will improve strength/tolerance for activity to enable patient to perform ADL's. OT Education/Plan Discharge Recommendations Plan/Recommendations: Continue POC Treatment Plan/Plan of Care Patient would benefit from OT for education, treatment and training to promote independence in ADL's, mobility, safety and/or upper extremity function for ADL's. Plan of Care: ADL Retraining, Functional Mobility, Group Exercise/Act as Ind, UE Funct Exercise/Act Treatment Duration: August 25, 2019 Frequency: At least 5 of 7 days/Wk (IRF) Estimated Hrs Per Day: 1.5 hours per day Agreement: Yes Rehab Potential: Fair Time/GCodes Start Time: 08:05 Stop Time: 09:05 Total Time Billed (hr/min): 60 Billed Treatment Time 1 visit, ADLx4(60minutes) ADALGISA LIANG OT August 22, 2019 10:41
--- NOTE | 2019-08-22 10:41 | PM&R Progress Note ---
Subjective HPI/CC On Admission Date Seen by Provider: August 22, 2019 Time Seen by Provider: 10:45 Subjective/Events-last exam In/out cath at 1200 and 400 Home on Sunday and she can navigate in wheelchair Vaginal discharge yeast noted by RN so will start on Diflucan GERD symptoms seem to be improved No pain is reported Reviewed therapy notes Checked meds and labs Conferred with critical care cns of Systems Neurological: Weakness, Numbness, Incoordination Objective Exam Vital Signs Vital Signs Date Time Temp Pulse Resp B/P (MAP) Pulse Ox O2 Delivery O2 Flow Rate FiO2 08/23/19 01:00 71 08/22/19 21:58 Room Air 08/22/19 16:00 36.7 18 163/89 (113) 94 Capillary Refill : Less Than 3 Seconds General Appearance: No Apparent Distress, WD/WN, Chronically ill, Thin, Other (frail) HEENT: PERRL/EOMI, Normal ENT Inspection, Pharynx Normal Neck: Full Range of Motion, Normal Inspection, Non Tender, Supple, Carotid Bruit Respiratory: Chest Non Tender, Lungs Clear, Normal Breath Sounds, No Accessory Muscle Use, No Respiratory Distress Cardiovascular: Regular Rate, Rhythm, No Edema, No Gallop, No JVD, No Murmur, Normal Peripheral Pulses Gastrointestinal: Normal Bowel Sounds, No Organomegaly, No Pulsatile Mass, Non Tender, Soft Back: Normal Inspection, No CVA Tenderness, No Vertebral Tenderness Extremity: Normal Capillary Refill, Normal Inspection, Normal Range of Motion, Non Tender, No Calf Tenderness, No Pedal Edema Neurologic/Psychiatric: Alert, Oriented x3, No Motor/Sensory Deficits (legs 4/5 strength), Normal Mood/Affect Skin: Normal Color, Warm/Dry Lymphatic: No Adenopathy Results/Procedures Lab Patient resulted labs reviewed. FIM Transfers Therapy Code Descriptions/Definitions Functional [place] Measure: 0=Not Assessed/NA 4=Minimal Assistance 1=Total Assistance 5=Supervision or Setup 2=Maximal Assistance 6=Modified [place] 3=Moderate Assistance 7=Complete IndependenceSCALE: Activities may be completed with or without assistive devices. 1-Adnyleknnb-xskylfx completes the activity by him/herself with no assistance from a helper. 5-Set-up or Clean-up Assistance-helper sets up or cleans up; patient completes activity. [place] assists only prior to or following the activity. 4-Supervision or Touching Assistance-helper provides verbal cues and/or touching/steadying and/or contact guard assistance as patient completes activity. Assistance may be provided throughout the activity or intermittently. 3-Partial/Moderate Assistance-helper does LESS THAN HALF the effort. [place] lifts, holds or supports trunk or limbs, but provides less than half the effort. 2-Substantial/Maximal Assistance-helper does MORE THAN HALF the effort. [place] lifts or holds trunk or limbs and provides more than half the effort. 1-Iodnhzxhq-niefri does ALL the effort. Patient does none of the effort to complete the activity. Or, the assistance of 2 or more helpers is required for the patient to complete the activity. If activity was not attempted, code reason: 7-Patient Refused. 9-Not Applicable-not attempted and the patient did not perform the activity before the current illness, exacerbation or injury. 10-Not Attempted due to Environmental Limitations-(lack of equipment, weather restraints, etc.). 88-Not Attempted due to Medical Conditions or Safety Concerns. Roll Left to Right (QC): 3 Sit to Lying (QC): 4 Sit to Stand (QC): 4 Chair/Spr-yq-Bptvn Xfer(QC): 3 Car Transfer (QC): 4 Gait Training Does the Patient Walk?: No and Walking Goal IS indicated Distance: 10'x3 Walk 10 feet (QC): 4 Walk 50 ft with 2 Turns(QC): 88 Walk 150 ft (QC): 88 Walking 10ft/uneven surface-QC: 88 Gait Persons Needed: 1 Gait Assistive Device: Parallel Bars Wheelchair Training Does the Pt Use a Wheelchair?: Yes Distance: 150' Wheel 50 ft with 2 turns (QC): 4 Wheel 150 ft (QC): 4 Type of Wheelchair: Manual Stair Training 1 Step (curb) (QC): 88 4 Steps (QC): 88 12 Steps (QC): 88 Balance Picking up an Object (QC): 88 ADL-Treatment Eating (QC): 6 (Pt feeding self lunch without assist) Oral Hygiene (QC): 5 Bathing Location: L Arm, R Arm, Chest, Abdomen Shower/Bathe Self (QC): 4 (SBA while seated in chair.) Upper Body Dressing (QC): 4 (SBA) Lower Body Dressing (QC): 3 (Pt. able to don pants over feet and up to thighs. In stance, required mod assist to don over hips. Pt. able to adjust them again once seated.) On/Off Footwear (QC): 4 Toileting Hygiene (QC): 3 (Min assist in stance for balance while pt. cleanses self after toileting.) Toilet Transfer (QC): 3 (Min assist.) Assessment/Plan Assessment and Plan Assess & Plan/Chief Complaint Assessment: (1A) Debility with major fall risk requiring IRF (1) s/p Sepsis 2 weeks ago on med-surg (2) Acute UTI recurrent type an now on Cefepime due to resistance (3) Abdominal pain (4) Hypokalemia (5) Neurogenic bladder-self caths maintained Urology at [facility] regular basis (6) Headache (7) Diabetes mellitus (8) Unsteady gait with POTS (Postoral orthostasis tachycardia syndrome) (9) Physical debility (10) DVT prophylaxis (11) Low back pain chronic w/h/o lumbar spine surgery (12) DM (13) Vit B12 def Plan: Labs and IVF due to syncopal episode from exacerbation of POTS when required Maintain on home meds Permissive hypertension due to severity of her orthostasis when standing up Pain control Bowel regimen to maintain Intensive therapies Straight in/out caths prn Cefepime Cardiology consultation is appreciated Fall risk (1) Physical debility Status: Acute (2) Unsteady gait Status: Acute (3) POTS (postural orthostatic tachycardia syndrome) Status: Chronic (4) Acute UTI Status: Acute (5) History of UTI Status: Chronic (6) Weakness Status: Chronic (7) Hypokalemia Status: Acute (8) Diabetes mellitus Status: Chronic (9) Neurogenic bladder Status: Chronic (10) DVT prophylaxis Status: Acute (11) Headache Status: Resolved Resolution Date/Time: 08/07/19 @ 12:08 (12) Low back pain (13) GERD (gastroesophageal reflux disease) Status: Chronic (14) Neuropathy MALIKA VÁZQUEZ DO August 22, 2019 10:41
[2019-08-22] MEDS: fluCOnazole (DIFLUCAN) 100 MG TAB PO SCH (12:27)
--- NOTE | 2019-08-22 13:48 | Occupational Ther Daily Note ---
OT Current Status-Daily Note Subjective Pt resting in bed, agrees to therapy. Pt states she still has a headache, but it is somewhat better. Does not rate. ADL-Treatment Therapy Code Descriptions/Definitions Functional [place] Measure: 0=Not Assessed/NA 4=Minimal Assistance 1=Total Assistance 5=Supervision or Setup 2=Maximal Assistance 6=Modified [place] 3=Moderate Assistance 7=Complete IndependenceSCALE: Activities may be completed with or without assistive devices. 4-Nbvmymjbhm-meyanrd completes the activity by him/herself with no assistance from a helper. 5-Set-up or Clean-up Assistance-helper sets up or cleans up; patient completes activity. [place] assists only prior to or following the activity. 4-Supervision or Touching Assistance-helper provides verbal cues and/or touching/steadying and/or contact guard assistance as patient completes activity. Assistance may be provided throughout the activity or intermittently. 3-Partial/Moderate Assistance-helper does LESS THAN HALF the effort. [place] lifts, holds or supports trunk or limbs, but provides less than half the effort. 2-Substantial/Maximal Assistance-helper does MORE THAN HALF the effort. [place] lifts or holds trunk or limbs and provides more than half the effort. 0-Aaflfllij-nchptp does ALL the effort. Patient does none of the effort to complete the activity. Or, the assistance of 2 or more helpers is required for the patient to complete the activity. If activity was not attempted, code reason: 7-Patient Refused. 9-Not Applicable-not attempted and the patient did not perform the activity before the current illness, exacerbation or injury. 10-Not Attempted due to Environmental Limitations-(lack of equipment, weather restraints, etc.). 88-Not Attempted due to Medical Conditions or Safety Concerns. Other Treatment Pt states she was on bedpan, but did not get pants pulled up. Pt able to roll left and right to pull pants up without assist. Pt scoots to HOB with cues for technique. Pt completed bilateral UE exercises to increase strength needed for ADLs and transfers. Pt performed shoulder flexion, forward press, biceps curls, and wrist flex/ext x10 reps, 2 sets with 1# dowel elver. Rest breaks taken between exercises. Pt also performed bilateral hand mechanical oxidizer exercises to increase mechanical oxidizer strength for functional tasks. Pt resting in bed with needs met after session. OT Short Term Goals Short Term Goals Time Frame: Aug 18, 2019 Upper body dressin Lower body dressin Putting on/taking off footwear: 4 OT Fci Goals Fci Goals Time Frame: August 25, 2019 Eating (QC): 6 Oral Hygiene (QC): 6 Toileting Hygiene (QC): 6 Shower/Bathe Self (QC): 4 Upper Body Dressing (QC): 6 Lower Body Dressing (QC): 6 On/Off Footwear (QC): 6 Additional Goals: 1-Demonstrate ADL Tasks, 2-Verbalize Understanding, 3-Improv eStrength/[place]ush[place] 1=Demonstrate adherence to instructed precautions during ADL tasks. 2=Patient will verbalize/demonstrate understanding of assistive devices/modifications for ADL. 3=Patient will improve strength/tolerance for activity to enable patient to p erform ADL's. OT Education/Plan Discharge Recommendations Plan/Recommendations: Continue POC Treatment Plan/Plan of Care Patient would benefit from OT for education, treatment and training to promote independence in ADL's, mobility, safety and/or upper extremity function for ADL's. Plan of Care: ADL Retraining, Functional Mobility, Group Exercise/Act as Ind, UE Funct Exercise/Act Treatment Duration: August 25, 2019 Frequency: At least 5 of 7 days/Wk (IRF) Estimated Hrs Per Day: 1.5 hours per day Agreement: Yes Rehab Potential: Fair Time/GCodes Start Time: 13:00 Stop Time: 13:30 Total Time Billed (hr/min): 30 Billed Treatment Time 1 visit, EXx2(30minutes) ADALGISA LIANG OT August 22, 2019 13:48
--- NOTE | 2019-08-22 14:00 | Physical Therapy Daily Note ---
PT Daily Note-Current Subjective Pt. states she was asleep when they brought lunch but would perhaps try to eat it after PT Rx. Pt. states she feels she has made some progress in that she is tired but not as dizzy Pain Location: No Pain Reported Mental Status Patient Orientation: Normal For Age Transfers SCALE: Activities may be completed with or without assistive devices. 1-Hwuoiwwdgg-xsfbieh completes the activity by him/herself with no assistance from a helper. 5-Set-up or Clean-up Assistance-helper sets up or cleans up; patient completes activity. [place] assists only prior to or following the activity. 4-Supervision or Touching Assistance-helper provides verbal cues and/or touching/steadying and/or contact guard assistance as patient completes activity. Assistance may be provided throughout the activity or intermittently. 3-Partial/Moderate Assistance-helper does LESS THAN HALF the effort. [place] lifts, holds or supports trunk or limbs, but provides less than half the effort. 2-Substantial/Maximal Assistance-helper does MORE THAN HALF the effort. [place] lifts or holds trunk or limbs and provides more than half the effort. 1-Bxivypaml-cwgnba does ALL the effort. Patient does none of the effort to complete the activity. Or, the assistance of 2 or more helpers is required for the patient to complete the activity. If activity was not attempted, code reason: 7-Patient Refused. 9-Not Applicable-not attempted and the patient did not perform the activity before the current illness, exacerbation or injury. 10-Not Attempted due to Environmental Limitations-(lack of equipment, weather restraints, etc.). 88-Not Attempted due to Medical Conditions or Safety Concerns. Roll Left & Right (QC): 6 Sit to Lying (QC): 6 Lying to Sitting/Side of Bed(Q: 6 Sit to Stand (QC): 4 pt. did 3 sit to stands with FWW along with side step left and right 5 steps x 3 with good tolerance, fatigue but not c/o dizziness Weight Bearing Right Lower Extremity: Right Full Weight Bearing Left Lower Extremity: Left Full Weight Bearing Exercises Seated Therapy Exercises: Ankle pumps, Sit to stand, Long arc quads, Hip abd/add Seated Reps: 10 Treatments bed mobility, rolling, sup to sit and sit to sup multiple trials along with seated exercise, pt. in bed in upright position afterward with meal tray in place and call rodriguez at hand Assessment Current Status: Good Progress fatigue but no c/o dizziness on feet, tolerated a few steps in safety of bedside with good tolerance PT Short Term Goals Short Term Goals Time Frame: Aug 18, 2019 Roll Left & Right: 6 Sit to lyin Lying to sitting on side of be: 6 Sit to stand: 4 Chair/ycx-hk-oorgp transfer: 4 Walk 10 feet: 4 Walk 50 feet with two turns: 4 PT Vice President Of Academic Affairs Goals Vice President Of Academic Affairs Goals PT [facility] Goals Time Frame: September 01, 2019 Roll Left & Right (QC): 6 Sit to Lying (QC): 6 Lying-Sitting on Side/Bed(QC): 6 Sit to Stand (QC): 6 Chair/Imy-ac-Spmnh Xfer(QC): 6 Toilet Transfer (QC): 6 Car Transfer (QC): 6 Does the Patient Walk: No and Walking Goal IS indicated Walk 10 feet (QC): 6 Walk 50ft with 2 Turns (QC): 6 Walk 150 ft (QC): 6 Walking 10ft on Uneven Surface: 6 1 Step (curb) (QC): 4 4 Steps (QC): 4 12 Steps (QC): 88 Picking up an Object (QC): 88 Wheel 50 feet with 2 turns (QC: 9 Wheel 150 feet: 9 PT Plan Treatment/Plan Treatment Plan: Continue Plan of Care Treatment Plan: Bed Mobility, Education, Functional Activity Buh[place]ra, Functional Strength, Group Therapy, Gait, Safety, Therapeutic Exercise, Transfers Treatment Duration: September 01, 2019 Frequency: At least 5 of 7 days/Wk (IRF) Estimated Hrs Per Day: 1.5 hours per day Patient and/or Family Agrees t: Yes Safety Risks/Education Patient Education: Gait Training, Transfer Techniques, Correct Positioning, Disease Process, Safety Issues Teaching Recipient: Patient Teaching Methods: Demonstration, Discussion Response to Teaching: Verbalize Understanding, Return Demonstration, Reinforcement Needed Time/GCodes Time In: 1330 Time Out: 1400 Total Billed Treatment Time: 30 Total Billed Treatment 1,FA30m ZARA ARNDT FARM LABOR CONTRACTOR August 22, 2019 14:00
--- NOTE | 2019-08-22 14:47 | NUR ---
CM/SS DISCHARGE PLANNING Visited with patient and then her spouse Harvinder Galeano by phone. All are in agreement for her discharge 08/25/19. Harvinder will plan to be here at 1000 to transport, communication board updated. [facility]: Confirmed [facility] had her services on hold, updated physician regarding "resumption of care" orders for RN, PT and OT. Rep Hernandez at [facility] will get patient on the schedule timely for reinitiation of services.
[2019-08-22] MEDS: CEFEPIME 2,000 MG/SWFI 20 ML IV PUSH IV SCH ×2 (14:48)
[2019-08-22 16:00] VITALS: BP 163/89
[2019-08-22] MEDS: ENOXAPARIN 40 MG/0.4 ML (LOVENOX) SYR SC SCH (16:39)
--- NOTE | 2019-08-22 19:04 | Cardiology Progress Note ---
Cardiology SOAP Progress Note Subjective: No cardiac complaints. Objective: I&O/Vital Signs 08/24/19 08/24/19 08/24/19 08/24/19 07:00 09:00 12:20 17:35 Temp 36.8 Pulse 79 76 80 Resp 18 B/P (MAP) 166/74 (104) Pulse Ox 93 O2 Delivery Room Air Room Air 08/24/19 00:00 Intake Total 920 ml Output Total 700 ml Balance 220 ml Weight (Pounds): 144 Weight (Ounces): 0.9 Weight (Calculated Kilograms): 65.386643 Constitutional: appears stated age, AAO x 3, PERRL, well-developed, well- nourished Respiratory: No accessory muscle use, No respiratory distress; chest is bilaterally symmetric, lungs clear to auscultation; No crackles, No rhonchi, No rales, No stridor, No wheezing, No pleural rub Cardiovascular: regular rate-rhythm; No irregularly irregular, No extra beats, No parasternal heave is noted, No bradycardia, No tachycardia; S1 and S2 Gastrointestional: soft, audible bowel sounds Extremities: normal range of motion, non-tender, normal inspection, no lower extremity edema bilateral Neurologic/Psychiatric: no motor/sensory deficits, alert, normal mood/affect, oriented x 3 Skin: normal color Results/Procedures: Labs Laboratory Tests 08/24/19 06:21: Glucometer 68L 08/24/19 06:47: Glucometer 88 Microbiology 08/16/19 Urine Culture - Final, Complete Enterobacter cloacae complex A/P: Assessment/Dx: POTS Recurrent UTI Generalized weakness HLP Plan: POTS- patient follows with cardiology at [facility] in [place], reporting recent workup done there. We are still awaiting records. Currently maintained on Florinef and Midodrine and Northera. Continue to increase fluid and salt intake. Recurrent UTI- CRE, continue on antibiotic, continue to monitor. Generalized weakness, continue with PT/OT HLP, continue to monitor as outpatient DM, management per medical services. Thank you for your consultation. Please call me if you have any questions. Edouard Gaviria MD, FACP, FACC, FSCAI, FHRS, CCDS Interventional Cardiology Cardiac Electrophysiology Vascular Medicine and Endovascular Interventions Taryn GAVIRIA MD August 22, 2019 19:04
--- NOTE | 2019-08-22 19:28 | NUR ---
bedside report received from LEONARDO BLACK, assume care of pt
--- NOTE | 2019-08-22 21:57 | NUR ---
pt refused Colace, mirdeysix & Christianoot
[2019-08-22] MEDS: MICONAZOLE NITRATE 2% CRM 30 GM TP SCH (22:00)
--- NOTE | 2019-08-22 22:00 | NUR ---
c/o pain generalized level 7/10 on numeric scale, Ultram 50mg given
--- NOTE | 2019-08-22 22:10 | NUR ---
straight cath & received 150ml clear straw colored urine
--- NOTE | 2019-08-22 22:45 | NUR ---
resting quietly in bed, pain level 0/10 on CNPI scale
[2019-08-23 06:00] VITALS: BP 166/79
[2019-08-23] MEDS: metFORMIN 500 MG (GLUCOPHAGE) TAB PO SCH ×2 (06:56→16:02)
[2019-08-23] MEDS: LIPASE/AMYLASE/PROTEASE (PANCRELIPASE) 5,000 UNITS CAP PO SCH ×4 (06:56→21:30)
[2019-08-23] MEDS: MAGNESIUM OXIDE (MAG-OX)400 MG TAB PO SCH ×2 (08:38→18:06)
[2019-08-23] MEDS: FLUDROCORTISONE 0.1 MG (FLORINEF) TAB PO SCH (08:39)
[2019-08-23] MEDS: fluCOnazole (DIFLUCAN) 100 MG TAB PO SCH (08:39)
[2019-08-23] MEDS: PANTOPRAZOLE 40 MG (PROTONIX) TAB PO SCH ×2 (08:39→21:32)
[2019-08-23] MEDS: KCL 10 MEQ TAB (MICRO K) PO SCH ×3 (08:39→18:06)
[2019-08-23] MEDS: DULoxetine 30 MG (CYMBALTA) CAP PO SCH (08:39)
[2019-08-23] MEDS: FAMOTIDINE 20 MG (PEPCID) TABLET PO SCH (08:39)
[2019-08-23] MEDS: GABAPENTIN 100 MG (NEURONTIN) CAP PO SCH ×3 (08:39→21:31)
[2019-08-23] MEDS: MIDODRINE 10 MG (PROAMATINE) TAB PO SCH ×3 (08:39→21:31)
[2019-08-23] MEDS: COLESTIPOL 1 GM (COLESTID) TAB PO SCH ×2 (08:41→21:31)
[2019-08-23] MEDS: NORTHERA PO SCH ×3 (08:41→18:06)
[2019-08-23] MEDS: FLUTICASONE NASAL SPRAY (FLONASE) 16 GM BTL NS SCH (08:44)
[2019-08-23] MEDS: DOCUSATE SODIUM 100 MG (COLACE) CAP PO SCH ×2 (08:44→21:31)
[2019-08-23] MEDS: SENNA W/DOCUSATE (SENOKOT S) TABLET PO SCH ×2 (08:45→21:37)
[2019-08-23] MEDS: polyethylene glycoL POWDER 17 GM (MIRALAX) PACK PO SCH ×2 (08:45→21:36)
[2019-08-23] MEDS: ONDANSETRON 4 MG (ZOFRAN) ORAL DISSOLVE TAB PO PRN (10:58)
--- NOTE | 2019-08-23 11:33 | Physical Therapy Daily Note ---
PT Daily Note-Current Subjective Pt agreeable. Reports "just a little dizzy" with sitting upright. Mental Status Patient Orientation: Person, Place, Time, Situation Transfers SCALE: Activities may be completed with or without assistive devices. 5-Osmcbovbfd-qixbwze completes the activity by him/herself with no assistance from a helper. 5-Set-up or Clean-up Assistance-helper sets up or cleans up; patient completes activity. [place] assists only prior to or following the activity. 4-Supervision or Touching Assistance-helper provides verbal cues and/or touching/steadying and/or contact guard assistance as patient completes activity. Assistance may be provided throughout the activity or intermittently. 3-Partial/Moderate Assistance-helper does LESS THAN HALF the effort. [place] lifts, holds or supports trunk or limbs, but provides less than half the effort. 2-Substantial/Maximal Assistance-helper does MORE THAN HALF the effort. [place] lifts or holds trunk or limbs and provides more than half the effort. 5-Wbuewinbd-yvvdpk does ALL the effort. Patient does none of the effort to complete the activity. Or, the assistance of 2 or more helpers is required for the patient to complete the activity. If activity was not attempted, code reason: 7-Patient Refused. 9-Not Applicable-not attempted and the patient did not perform the activity before the current illness, exacerbation or injury. 10-Not Attempted due to Environmental Limitations-(lack of equipment, weather restraints, etc.). 88-Not Attempted due to Medical Conditions or Safety Concerns. Sit to Lying (QC): 5 Lying to Sitting/Side of Bed(Q: 5 Sit to Stand (QC): 4 Chair/Bko-ly-Ajihd Xfer(QC): 4 CGA for safety with transfer Weight Bearing Right Lower Extremity: Right Full Weight Bearing Left Lower Extremity: Left Full Weight Bearing Treatments Pt donned clothing in bed with set-up assist. Bed->chair TFR with CGA for sa fety. Up in chair with alarm activated, all needs met, nursing notified of position. Assessment Current Status: Fair Progress Pt tolerated fair-well. Mild c/o dizziness when up. PT Short Term Goals Short Term Goals Time Frame: Aug 18, 2019 Roll Left & Right: 6 Sit to lyin Lying to sitting on side of be: 6 Sit to stand: 4 Chair/sad-hi-mndlq transfer: 4 Walk 10 feet: 4 Walk 50 feet with two turns: 4 PT Mcfp Goals Mcfp Goals PT Reducing Machine Operator Goals Time Frame: September 01, 2019 Roll Left & Right (QC): 6 Sit to Lying (QC): 6 Lying-Sitting on Side/Bed(QC): 6 Sit to Stand (QC): 6 Chair/Etw-sr-Rtgpz Xfer(QC): 6 Toilet Transfer (QC): 6 Car Transfer (QC): 6 Does the Patient Walk: No and Walking Goal IS indicated Walk 10 feet (QC): 6 Walk 50ft with 2 Turns (QC): 6 Walk 150 ft (QC): 6 Walking 10ft on Uneven Surface: 6 1 Step (curb) (QC): 4 4 Steps (QC): 4 12 Steps (QC): 88 Picking up an Object (QC): 88 Wheel 50 feet with 2 turns (QC: 9 Wheel 150 feet: 9 PT Plan Problem List Problem List: Activity Tolerance, Functional Strength, Safety, Balance, Gait, Transfer Treatment/Plan Treatment Plan: Continue Plan of Care Treatment Plan: Bed Mobility, Education, Functional Activity [place], Functional Strength, Group Therapy, Gait, Safety, Therapeutic Exercise, Transfers Treatment Duration: September 01, 2019 Frequency: At least 5 of 7 days/Wk (IRF) Estimated Hrs Per Day: 1.5 hours per day Patient and/or Family Agrees t: Yes Time/GCodes Time In: 1018 Time Out: 1049 Total Billed Treatment Time: 31 Total Billed Treatment 1, FA x 31' USHA MEDRANO DPYvetet August 23, 2019 11:33
--- NOTE | 2019-08-23 12:22 | PM&R Progress Note ---
Subjective HPI/CC On Admission Date Seen by Provider: August 23, 2019 Time Seen by Provider: 12:30 Subjective/Events-last exam In/out cath reveals thick urine with sediment due to her inability to maintain her fluid intake orally which is a concern since she is DC Sunday and is very frail and appears to be declined in general Home on Sunday and her spirits are pretty high due to that plan Vaginal discharge yeast noted by RN so started on Diflucan yesterday GERD symptoms seem to be improved on PPI and she wants that Rx sent to [facility] No pain is reported Reviewed therapy notes Checked meds and labs Conferred with elevator worker of Systems General: Fatigue Genitourinary: Retention Objective Exam Vital Signs Vital Signs Date Time Temp Pulse Resp B/P (MAP) Pulse Ox O2 Delivery O2 Flow Rate FiO2 08/23/19 12:42 80 08/23/19 09:00 Room Air 08/23/19 06:00 36.2 18 166/79 (108) 94 Capillary Refill : Less Than 3 Seconds General Appearance: No Apparent Distress, WD/WN, Chronically ill, Thin, Other HEENT: PERRL/EOMI, Normal ENT Inspection, Pharynx Normal Neck: Full Range of Motion, Normal Inspection, Non Tender, Supple, Carotid Bruit Respiratory: Chest Non Tender, Lungs Clear, Normal Breath Sounds, No Accessory Muscle Use, No Respiratory Distress Cardiovascular: Regular Rate, Rhythm, No Edema, No Gallop, No JVD, No Murmur, Normal Peripheral Pulses Gastrointestinal: Normal Bowel Sounds, No Organomegaly, No Pulsatile Mass, Non Tender, Soft Back: Normal Inspection, No CVA Tenderness, No Vertebral Tenderness Extremity: Normal Capillary Refill, Normal Inspection, Normal Range of Motion, Non Tender, No Calf Tenderness, No Pedal Edema Neurologic/Psychiatric: Alert, Oriented x3, No Motor/Sensory Deficits, Normal Mood/Affect Skin: Normal Color, Warm/Dry Lymphatic: No Adenopathy Results/Procedures Lab Patient resulted labs reviewed. FIM Transfers Therapy Code Descriptions/Definitions Functional [place] Measure: 0=Not Assessed/NA 4=Minimal Assistance 1=Total Assistance 5=Supervision or Setup 2=Maximal Assistance 6=Modified [place] 3=Moderate Assistance 7=Complete IndependenceSCALE: Activities may be completed with or without assistive devices. 5-Mgbpnurqfl-rnpxrsk completes the activity by him/herself with no assistance from a helper. 5-Set-up or Clean-up Assistance-helper sets up or cleans up; patient completes activity. [place] assists only prior to or following the activity. 4-Supervision or Touching Assistance-helper provides verbal cues and/or touching/steadying and/or contact guard assistance as patient completes activity. Assistance may be provided throughout the activity or intermittently. 3-Partial/Moderate Assistance-helper does LESS THAN HALF the effort. [place] lifts, holds or supports trunk or limbs, but provides less than half the effort. 2-Substantial/Maximal Assistance-helper does MORE THAN HALF the effort. [place] lifts or holds trunk or limbs and provides more than half the effort. 7-Ybelwqrbb-kowrud does ALL the effort. Patient does none of the effort to complete the activity. Or, the assistance of 2 or more helpers is required for the patient to complete the activity. If activity was not attempted, code reason: 7-Patient Refused. 9-Not Applicable-not attempted and the patient did not perform the activity before the current illness, exacerbation or injury. 10-Not Attempted due to Environmental Limitations-(lack of equipment, weather restraints, etc.). 88-Not Attempted due to Medical Conditions or Safety Concerns. Roll Left to Right (QC): 6 Sit to Lying (QC): 5 Sit to Stand (QC): 4 Chair/Ene-kj-Xajiz Xfer(QC): 4 Car Transfer (QC): 4 Gait Training Does the Patient Walk?: No and Walking Goal IS indicated Distance: 10'x3 Walk 10 feet (QC): 4 Walk 50 ft with 2 Turns(QC): 88 Walk 150 ft (QC): 88 Walking 10ft/uneven surface-QC: 88 Gait Persons Needed: 1 Gait Assistive Device: Parallel Bars Wheelchair Training Does the Pt Use a Wheelchair?: Yes Distance: 150' Wheel 50 ft with 2 turns (QC): 4 Wheel 150 ft (QC): 4 Type of Wheelchair: Manual Stair Training 1 Step (curb) (QC): 88 4 Steps (QC): 88 12 Steps (QC): 88 Balance Picking up an Object (QC): 88 ADL-Treatment Eating (QC): 6 Oral Hygiene (QC): 5 Bathing Location: L Arm, R Arm, Chest, Abdomen Shower/Bathe Self (QC): 4 Upper Body Dressing (QC): 4 Lower Body Dressing (QC): 3 On/Off Footwear (QC): 4 Toileting Hygiene (QC): 3 (Min assist in stance for balance while pt. cleanses self after toileting.) Toilet Transfer (QC): 3 (Min assist.) Assessment/Plan Assessment and Plan Assess & Plan/Chief Complaint Assessment: (1A) Debility with major fall risk requiring IRF (1) s/p Sepsis 3 weeks ago on med-surg (2) Acute UTI recurrent type an now on Cefepime due to resistance and will complete Sunday (3) Abdominal pain chronic (4) Hypokalemia on supplement (5) Neurogenic bladder-self caths maintained Urology at [facility] regular basis (6) Headache (7) Diabetes mellitus (8) Unsteady gait with POTS (Postoral orthostasis tachycardia syndrome) (9) Physical debility (10) DVT prophylaxis (11) Low back pain chronic w/h/o lumbar spine surgery (12) DM (13) Vit B12 def (14) Dehydration requiring frequent IVF boluses Plan: Labs and IVF due to syncopal episode from exacerbation of POTS when required Maintain on home meds Permissive hypertension due to severity of her orthostasis when standing up Pain control Bowel regimen to maintain Intensive therapies Straight in/out caths prn Cefepime Cardiology consultation is appreciated Fall risk IVF today due to thick urine in/out cath with sediment (1) Physical debility Status: Acute (2) Unsteady gait Status: Acute (3) POTS (postural orthostatic tachycardia syndrome) Status: Chronic (4) Acute UTI Status: Acute (5) History of UTI Status: Chronic (6) Weakness Status: Chronic (7) Hypokalemia Status: Acute (8) Diabetes mellitus Status: Chronic (9) Neurogenic bladder Status: Chronic (10) DVT prophylaxis Status: Acute (11) Headache Status: Resolved Resolution Date/Time: 08/07/19 @ 12:08 (12) Low back pain (13) GERD (gastroesophageal reflux disease) Status: Chronic (14) Neuropathy MALIKA VÁZQUEZ DO August 23, 2019 12:22
[2019-08-23] MEDS ORDERED: CATHETER FLUSH 10 ML SYR IV PRN (12:45)
[2019-08-23] MEDS: CATHETER FLUSH 10 ML SYR IV SCH ×2 (14:51→22:00)
[2019-08-23] MEDS: CEFEPIME 2,000 MG/SWFI 20 ML IV PUSH IV SCH ×2 (14:51)
--- NOTE | 2019-08-23 15:00 | NUR ---
STRAIGHT CATH DONE, NEEDED IRRIGATED SEVERAL TIMES D/T THICK SEDIMENTED, TEA COLORED URINE. DR. VÁZQUEZ NOTIFIED NEW ORDER FOR IV FLUIDS AND TO PUSH ORAL FLUIDS.
[2019-08-23] MEDS: NS IV 1000 ML 1,000 ML IV SCH (16:02)
[2019-08-23 17:42] VITALS: BP 113/81
[2019-08-23] MEDS: ENOXAPARIN 40 MG/0.4 ML (LOVENOX) SYR SC SCH (18:08)
--- NOTE | 2019-08-23 19:16 | NUR ---
bedside report received from TAMERA BLACK/Yoyl<GINGER BLACK, assume care of pt
--- NOTE | 2019-08-23 21:04 | Cardiology Progress Note ---
Cardiology SOAP Progress Note Subjective: No cardiac complaints. Objective: I&O/Vital Signs 08/24/19 08/24/19 08/24/19 08/24/19 07:00 09:00 12:20 17:35 Temp 36.8 Pulse 79 76 80 Resp 18 B/P (MAP) 166/74 (104) Pulse Ox 93 O2 Delivery Room Air Room Air 08/24/19 00:00 Intake Total 920 ml Output Total 700 ml Balance 220 ml Weight (Pounds): 144 Weight (Ounces): 0.9 Weight (Calculated Kilograms): 65.654151 Constitutional: appears stated age, AAO x 3; No apparent distress; PERRL, well- developed, well-nourished Respiratory: No accessory muscle use, No respiratory distress; chest is bilaterally symmetric, lungs clear to auscultation; No wheezing Cardiovascular: regular rate-rhythm; No irregularly irregular, No extra beats, No parasternal heave is noted, No edema; S1 and S2 Gastrointestional: soft, audible bowel sounds Extremities: normal range of motion, non-tender, normal inspection, no lower extremity edema bilateral Neurologic/Psychiatric: no motor/sensory deficits, alert, normal mood/affect, oriented x 3 Skin: normal color Results/Procedures: Labs Laboratory Tests 08/24/19 06:21: Glucometer 68L 08/24/19 06:47: Glucometer 88 Microbiology 08/16/19 Urine Culture - Final, Complete Enterobacter cloacae complex A/P: Assessment/Dx: Pots, Hyperlipidemia, Recurrent UTI, Aggressive inpatient rehabilitation. Plan: POTS- patient follows with cardiology at [facility] in [place], reporting recent workup done there. Currently maintained on Florinef and Midodrine and Northera. Continue to increase fluid and salt intake. Recurrent UTI- CRE, continue on antibiotic, continue to monitor. Generalized weakness, continue with PT/OT HLP, continue to monitor as outpatient DM, management per medical services. Thank you for your consultation. Please call me if you have any questions. Edouard Gaviria MD, FACP, FACC, FSCAI, FHRS, CCDS Interventional Cardiology Cardiac Electrophysiology Vascular Medicine and Endovascular Interventions Taryn GAVIRIA MD August 23, 2019 21:04
--- NOTE | 2019-08-23 21:33 | NUR ---
pt took Colace but refused miralax & Senokot, c/o generalized discomfort pain level 5/10 on numeric scale, tramadol 50mg given
[2019-08-23] MEDS: MICONAZOLE NITRATE 2% CRM 30 GM TP SCH (21:36)
--- NOTE | 2019-08-23 21:45 | NUR ---
straight cath received 250ml clear straw colored urine
--- NOTE | 2019-08-23 22:20 | NUR ---
resting quietly in bed, pain level 0/10 on CNPI scale
[2019-08-24] MEDS: NS IV 1000 ML 1,000 ML IV SCH ×2 (04:35→17:00)
[2019-08-24 05:30] VITALS: BP 169/78
[2019-08-24] MEDS: CATHETER FLUSH 10 ML SYR IV SCH ×3 (06:00→22:00)
--- NOTE | 2019-08-24 06:00 | NUR ---
fsbs 68 given oj
[2019-08-24] MEDS: LIPASE/AMYLASE/PROTEASE (PANCRELIPASE) 5,000 UNITS CAP PO SCH ×4 (06:22→21:22)
[2019-08-24] MEDS: metFORMIN 500 MG (GLUCOPHAGE) TAB PO SCH ×2 (06:22→17:11)
--- NOTE | 2019-08-24 06:40 | NUR ---
fsbs 88
[2019-08-24] MEDS: DOCUSATE SODIUM 100 MG (COLACE) CAP PO SCH ×2 (08:15→21:22)
[2019-08-24] MEDS: polyethylene glycoL POWDER 17 GM (MIRALAX) PACK PO SCH ×2 (08:15→21:29)
[2019-08-24] MEDS: GABAPENTIN 100 MG (NEURONTIN) CAP PO SCH ×3 (08:15→21:22)
[2019-08-24] MEDS: PANTOPRAZOLE 40 MG (PROTONIX) TAB PO SCH ×2 (08:15→21:22)
[2019-08-24] MEDS: FAMOTIDINE 20 MG (PEPCID) TABLET PO SCH (08:15)
[2019-08-24] MEDS: DULoxetine 30 MG (CYMBALTA) CAP PO SCH (08:15)
[2019-08-24] MEDS: SENNA W/DOCUSATE (SENOKOT S) TABLET PO SCH ×2 (08:15→21:22)
[2019-08-24] MEDS: MAGNESIUM OXIDE (MAG-OX)400 MG TAB PO SCH ×2 (08:15→17:11)
[2019-08-24] MEDS: FLUDROCORTISONE 0.1 MG (FLORINEF) TAB PO SCH (08:15)
[2019-08-24] MEDS: KCL 10 MEQ TAB (MICRO K) PO SCH ×3 (08:15→17:11)
[2019-08-24] MEDS: fluCOnazole (DIFLUCAN) 100 MG TAB PO SCH (08:15)
[2019-08-24] MEDS: COLESTIPOL 1 GM (COLESTID) TAB PO SCH ×2 (08:16→21:24)
[2019-08-24] MEDS: FLUTICASONE NASAL SPRAY (FLONASE) 16 GM BTL NS SCH (08:16)
[2019-08-24] MEDS: MIDODRINE 10 MG (PROAMATINE) TAB PO SCH ×3 (08:16→21:22)
[2019-08-24] MEDS: NORTHERA PO SCH ×3 (08:18→17:12)
--- NOTE | 2019-08-24 12:04 | PM&R Progress Note ---
Subjective HPI/CC On Admission Date Seen by Provider: August 24, 2019 Time Seen by Provider: 12:15 Subjective/Events-last exam In/out cath reveals normal sediment and not as thick since IVF initiated Home on Sunday and her spirits are pretty high due to that plan Vaginal discharge yeast noted by RN so started on Diflucan Sunday and will be done with that at [place] GERD symptoms seem to be improved on PPI and she wants that Rx sent to [facility] IVF initiated as outpatient 2 times a week last year by PCP so this dehydration issue has been an ongoing issue No pain is reported Reviewed therapy notes Checked meds and labs Conferred with chassis inspector of Systems General: Fatigue Genitourinary: Retention Objective Exam Vital Signs Vital Signs Date Time Temp Pulse Resp B/P (MAP) Pulse Ox O2 Delivery O2 Flow Rate FiO2 08/24/19 12:20 76 08/24/19 09:00 Room Air 08/24/19 05:30 37.0 18 169/78 (108) 96 Capillary Refill : Less Than 3 Seconds General Appearance: No Apparent Distress, WD/WN, Chronically ill, Thin, Other HEENT: PERRL/EOMI, Normal ENT Inspection, Pharynx Normal Neck: Full Range of Motion, Normal Inspection, Non Tender, Supple, Carotid Bruit Respiratory: Chest Non Tender, Lungs Clear, Normal Breath Sounds, No Accessory Muscle Use, No Respiratory Distress Cardiovascular: Regular Rate, Rhythm, No Edema, No Gallop, No JVD, No Murmur, Normal Peripheral Pulses Gastrointestinal: Normal Bowel Sounds, No Organomegaly, No Pulsatile Mass, Non Tender, Soft Back: Normal Inspection, No CVA Tenderness, No Vertebral Tenderness Extremity: Normal Capillary Refill, Normal Inspection, Normal Range of Motion, Non Tender, No Calf Tenderness, No Pedal Edema Neurologic/Psychiatric: Alert, Oriented x3, No Motor/Sensory Deficits, Normal Mood/Affect Skin: Normal Color, Warm/Dry Lymphatic: No Adenopathy Results/Procedures Lab Patient resulted labs reviewed. FIM Transfers Therapy Code Descriptions/Definitions Functional [place] Measure: 0=Not Assessed/NA 4=Minimal Assistance 1=Total Assistance 5=Supervision or Setup 2=Maximal Assistance 6=Modified [place] 3=Moderate Assistance 7=Complete IndependenceSCALE: Activities may be completed with or without assistive devices. 3-Bjgxtlmgrz-qblnfzg completes the activity by him/herself with no assistance from a helper. 5-Set-up or Clean-up Assistance-helper sets up or cleans up; patient completes activity. [place] assists only prior to or following the activity. 4-Supervision or Touching Assistance-helper provides verbal cues and/or touching/steadying and/or contact guard assistance as patient completes activity. Assistance may be provided throughout the activity or intermittently. 3-Partial/Moderate Assistance-helper does LESS THAN HALF the effort. [place] lifts, holds or supports trunk or limbs, but provides less than half the effort. 2-Substantial/Maximal Assistance-helper does MORE THAN HALF the effort. [place] lifts or holds trunk or limbs and provides more than half the effort. 9-Jptsbewpz-xammuj does ALL the effort. Patient does none of the effort to complete the activity. Or, the assistance of 2 or more helpers is required for the patient to complete the activity. If activity was not attempted, code reason: 7-Patient Refused. 9-Not Applicable-not attempted and the patient did not perform the activity before the current illness, exacerbation or injury. 10-Not Attempted due to Environmental Limitations-(lack of equipment, weather restraints, etc.). 88-Not Attempted due to Medical Conditions or Safety Concerns. Roll Left to Right (QC): 6 Sit to Lying (QC): 5 Sit to Stand (QC): 4 Chair/Rjc-bd-Osgvz Xfer(QC): 4 Car Transfer (QC): 4 Gait Training Does the Patient Walk?: No and Walking Goal IS indicated Distance: 10'x3 Walk 10 feet (QC): 4 Walk 50 ft with 2 Turns(QC): 88 Walk 150 ft (QC): 88 Walking 10ft/uneven surface-QC: 88 Gait Persons Needed: 1 Gait Assistive Device: Parallel Bars Wheelchair Training Does the Pt Use a Wheelchair?: Yes Distance: 150' Wheel 50 ft with 2 turns (QC): 4 Wheel 150 ft (QC): 4 Type of Wheelchair: Manual Stair Training 1 Step (curb) (QC): 88 4 Steps (QC): 88 12 Steps (QC): 88 Balance Picking up an Object (QC): 88 ADL-Treatment Eating (QC): 6 Oral Hygiene (QC): 5 Bathing Location: L Arm, R Arm, Chest, Abdomen Shower/Bathe Self (QC): 4 Upper Body Dressing (QC): 4 Lower Body Dressing (QC): 3 On/Off Footwear (QC): 4 Toileting Hygiene (QC): 3 (Min assist in stance for balance while pt. cleanses self after toileting.) Toilet Transfer (QC): 3 (Min assist.) Assessment/Plan Assessment and Plan Assess & Plan/Chief Complaint Assessment: (1A) Debility with major fall risk requiring IRF (1) s/p Sepsis 3 weeks ago on med-surg (2) Acute UTI recurrent type an now on Cefepime due to resistance and will complete Sunday (3) Abdominal pain chronic (4) Hypokalemia on supplement (5) Neurogenic bladder-self caths maintained Urology at [facility] regular basis (6) Headache (7) Diabetes mellitus (8) Unsteady gait with POTS (Postoral orthostasis tachycardia syndrome) (9) Physical debility (10) DVT prophylaxis (11) Low back pain chronic w/h/o lumbar spine surgery (12) DM (13) Vit B12 def (14) Dehydration requiring frequent IVF boluses required last year by PCP so will set that up at DC with PCP again Plan: Labs and IVF due to syncopal episode from exacerbation of POTS when required Maintain on home meds Permissive hypertension due to severity of her orthostasis when standing up Pain control Bowel regimen to maintain Intensive therapies Straight in/out caths prn Cefepime Cardiology consultation is appreciated Fall risk IVF today until DC (1) Physical debility Status: Acute (2) Unsteady gait Status: Acute (3) POTS (postural orthostatic tachycardia syndrome) Status: Chronic (4) Acute UTI Status: Acute (5) History of UTI Status: Chronic (6) Weakness Status: Chronic (7) Hypokalemia Status: Acute (8) Diabetes mellitus Status: Chronic (9) Neurogenic bladder Status: Chronic (10) DVT prophylaxis Status: Acute (11) Headache Status: Resolved Resolution Date/Time: 08/07/19 @ 12:08 (12) Low back pain (13) GERD (gastroesophageal reflux disease) Status: Chronic (14) Neuropathy MALIKA VÁZQUEZ DO August 24, 2019 12:04
[2019-08-24] MEDS: CEFEPIME 2,000 MG/SWFI 20 ML IV PUSH IV SCH ×2 (14:58)
[2019-08-24] MEDS: BISACODYL 10 MG SUPP (DULCOLAX) PR PRN (15:18)
--- NOTE | 2019-08-24 15:44 | NUR ---
URINE REMAINS CLEAR TODAY. DR. VÁZQUEZ RECOMMENDS OUTPATIENT IVF UPON DISCHARGE IF OK'D WITH DR. WADE, D/T PT HAVING POOR PO INTAKE.
[2019-08-24] MEDS ORDERED: CLON0.5T4 PO (16:42)
[2019-08-24] MEDS ORDERED: PANT40TA3 PO (16:42)
[2019-08-24] MEDS ORDERED: FLUC100T6 PO (16:42)
[2019-08-24] MEDS ORDERED: TRM50T PO (16:42)
--- NOTE | 2019-08-24 16:45 | D/C HH Face to Face Order ---
D/C Face to Face Orders Reconcile Patient Problems Problems Reviewed?: Yes Instructions for Patient [facility] Patient Instructions/FollowUp: Dr Wynne in 1 week Physician to follow Patient: Slef Discharge Diet for Home: No Restrictions Patient Problems: POTS Severe dehydration recurrent in type Poor reserve Falls UTI's Goals for Patient: [place] Patient Data-Allergies,Ht & Wt Patient Allergies: Coded Allergies: amoxicillin (Verified Allergy, Unknown, 05/27/18) clavulanic acid (Verified Allergy, Unknown, 05/27/18) moxifloxacin (Verified Allergy, Unknown, 05/27/18) sulfamethoxazole (Verified Allergy, Unknown, 05/27/18) trimethoprim (Verified Allergy, Unknown, 05/27/18) Height (Feet): 5 Height (Inches): 2.00 Weight (Pounds): 144 Weight (Ounces): 0.9 Home Health Need/Face to Face Date of Face to Face: August 25, 2019 Clinical Findings: Generalized weakness and fatigue, Instability, Muscle weakness, Unsteady gait I have seen Pt tuda-wh-zjyf: Yes Discharged To: Home Diagnosis/Conditions: POTS Severe dehydration recurrent in type Poor reserve Falls UTI's Patient is Homebound due to: Onofre fall risk due to instabilty, Muscle weakness Homebound Status Due to the above stated illness, injury or surgical procedure (medical condition or diagnosis) and associated clinical findings, the patient is homebound because of his/her inability to leave home except with aid of a supportive device and/or person AND leaving the home requires a considerable and taxing effort or is medically contraindicated. Pt req the following assistanc: Walker, Wheelchair Home Health Nursing Orders Home Health Services Order: Nursing Services (Needs IVF of 1 liter of NS every Sunday and Sunday for 4 weeks), Group Dynamics Instructor-Evaluate & Treat, Physical Therapy-Evaluate & Treat Certify Stmt I certify that this patient is under my care and that I, a nurse practitioner or a physician; a speech pathology assistant working with me, had a face to face encounter that -meets the physician face to face encounter requirements with this patient as dated. MALIKA VÁZQUEZ DO August 24, 2019 16:45
[2019-08-24] MEDS: ENOXAPARIN 40 MG/0.4 ML (LOVENOX) SYR SC SCH (17:11)
--- NOTE | 2019-08-24 17:30 | NUR ---
PT HAD BEEN MEDICATED WITH DULCOLAX SUPPOSITORY, GOT UP TO COMMODE, SLOWLY BUT TOLERATED ACTIVITY WELL. WHEN UP ON COMMODE PT STARTED LEANING TO RIGHT SIDE OVER COMMODE HANDLE ABOUT TO PASS OUT. ASSISTED BY NURSES X2 BACK TO BED, PUT IN REVERSE [place] POSITION, THAN PT VOMITED. COLOR SLOWLY RETURNED BP CURRENTLY 114/68 HR 81.
[2019-08-24 17:35] VITALS: BP 166/74
--- NOTE | 2019-08-24 18:25 | Cardiology Progress Note ---
Cardiology SOAP Progress Note Subjective: No cardiac complaints. Objective: I&O/Vital Signs 08/24/19 08/24/19 08/24/19 08/24/19 07:00 09:00 12:20 17:35 Temp 36.8 Pulse 79 76 80 Resp 18 B/P (MAP) 166/74 (104) Pulse Ox 93 O2 Delivery Room Air Room Air 08/24/19 00:00 Intake Total 920 ml Output Total 700 ml Balance 220 ml Weight (Pounds): 144 Weight (Ounces): 0.9 Weight (Calculated Kilograms): 65.947862 Constitutional: appears stated age, AAO x 3; No apparent distress; PERRL, well- developed, well-nourished Respiratory: No accessory muscle use, No respiratory distress; chest is bilaterally symmetric, lungs clear to auscultation; No wheezing Cardiovascular: regular rate-rhythm; No irregularly irregular, No extra beats, No parasternal heave is noted, No edema; S1 and S2 Gastrointestional: soft, audible bowel sounds Extremities: normal range of motion, non-tender, normal inspection, no lower extremity edema bilateral Neurologic/Psychiatric: no motor/sensory deficits, alert, normal mood/affect, oriented x 3 Skin: normal color Results/Procedures: Labs Laboratory Tests 08/24/19 06:21: Glucometer 68L 08/24/19 06:47: Glucometer 88 Microbiology 08/16/19 Urine Culture - Final, Complete Enterobacter cloacae complex A/P: Assessment/Dx: Pots, Hyperlipidemia, Recurrent UTI, Aggressive inpatient rehabilitation. Plan: POTS- patient follows with cardiology at [facility] in [place], reporting recent workup done there. Currently maintained on Florinef and Midodrine and Northera. Continue to increase fluid and salt intake. Recurrent UTI- CRE, continue on antibiotic, continue to monitor. Generalized weakness, continue with PT/OT HLP, continue to monitor as outpatient DM, management per medical services. Thank you for your consultation. Please call me if you have any questions. Edouard Gaviria MD, FACP, FACC, FSCAI, FHRS, CCDS Interventional Cardiology Cardiac Electrophysiology Vascular Medicine and Endovascular Interventions Taryn GAVIRIA MD August 24, 2019 18:25
--- NOTE | 2019-08-24 19:10 | NUR ---
bedside report received from TAMERA BLACK, assume care of pt
--- NOTE | 2019-08-24 21:05 | NUR ---
straight cath & received 300ml clear bright yellow urine
[2019-08-24] MEDS: MICONAZOLE NITRATE 2% CRM 30 GM TP SCH (21:23)
--- NOTE | 2019-08-24 21:23 | NUR ---
pt took Colace & Senokot, refused miralax, c/o generalized pain, pain level 5/10 on numeric scale, Ultram 50mg given
--- NOTE | 2019-08-24 22:10 | NUR ---
resting quietly in bed, pain level 0/10 on CNPI scale
--- NOTE | 2019-08-25 00:15 | NUR ---
straight cath received 325ml clear bright yellow urine
--- NOTE | 2019-08-25 04:35 | NUR ---
straight cath & received 350ml clear bright yellow urine
[2019-08-25] MEDS: NS IV 1000 ML 1,000 ML IV SCH ×2 (05:15→06:45)
[2019-08-25 05:20] VITALS: BP 134/71
[2019-08-25 05:31] LABS: BASOPHILS % (AUTO) 0 % (0-10); EOSINOPHILS # (AUTO) 0.1 10^3/uL (0.0-0.3); EOSINOPHILS % (AUTO) 1 % (0-10); HEMATOCRIT 38 % (35-52); HEMOGLOBIN 11.8 G/DL (11.5-16.0); LYMPHOCYTES # (AUTO) 2.4 X 10^3 (1.0-4.0); LYMPHOCYTES % (AUTO) 28 % (12-44); MEAN CORPUSCULAR HEMOGLOBIN 29 PG (25-34); MEAN CORPUSCULAR HGB CONC 32 G/DL (32-36); MEAN CORPUSCULAR VOLUME 93 FL (80-99); MONOCYTES % (AUTO) 11 % (0-12); NEUTROPHILS # (AUTO) 5.1 X 10^3 (1.8-7.8); NEUTROPHILS % (AUTO) 60 % (42-75); PLATELET COUNT 356 10^3/uL (130-400); WHITE BLOOD COUNT 8.6 10^3/uL (4.3-11.0)
[2019-08-25 05:51] LABS: ALANINE AMINOTRANSFERASE 10 U/L (0-55); ALBUMIN 3.4 GM/DL (3.2-4.5); ALKALINE PHOSPHATASE 65 U/L (40-136); BILIRUBIN,TOTAL 0.3 MG/DL (0.1-1.0); BUN/CREATININE RATIO 11; CALCIUM 8.4 MG/DL (8.5-10.1); CARBON DIOXIDE 31 MMOL/L (21-32); CHLORIDE 96 MMOL/L (98-107); CREATININE SERUM 0.71 MG/DL (0.60-1.30); GFR ESTIMATED > 60; GLUCOSE 74 MG/DL (70-105); POTASSIUM 3.1 MMOL/L (3.6-5.0); SODIUM 138 MMOL/L (135-145); TOTAL PROTEIN 6.8 GM/DL (6.4-8.2)
[2019-08-25] MEDS: CATHETER FLUSH 10 ML SYR IV SCH (06:00)
--- NOTE | 2019-08-25 06:20 | NUR ---
up in the chair
[2019-08-25] MEDS: ONDANSETRON 4 MG (ZOFRAN) ORAL DISSOLVE TAB PO PRN (06:29)
--- NOTE | 2019-08-25 06:29 | NUR ---
c/o nausea zofran 4mg po given
[2019-08-25] MEDS: LIPASE/AMYLASE/PROTEASE (PANCRELIPASE) 5,000 UNITS CAP PO SCH (07:02)
[2019-08-25] MEDS: metFORMIN 500 MG (GLUCOPHAGE) TAB PO SCH (07:02)
[2019-08-25] MEDS: MAGNESIUM OXIDE (MAG-OX)400 MG TAB PO SCH (08:27)
[2019-08-25] MEDS: KCL 10 MEQ TAB (MICRO K) PO SCH (08:27)
[2019-08-25] MEDS: FLUTICASONE NASAL SPRAY (FLONASE) 16 GM BTL NS SCH (08:28)
[2019-08-25] MEDS: NORTHERA PO SCH (08:28)
[2019-08-25] MEDS: DOCUSATE SODIUM 100 MG (COLACE) CAP PO SCH (08:28)
[2019-08-25] MEDS: polyethylene glycoL POWDER 17 GM (MIRALAX) PACK PO SCH ×2 (08:29→08:34)
[2019-08-25] MEDS: COLESTIPOL 1 GM (COLESTID) TAB PO SCH (08:29)
[2019-08-25] MEDS: FLUDROCORTISONE 0.1 MG (FLORINEF) TAB PO SCH (08:29)
[2019-08-25] MEDS: DULoxetine 30 MG (CYMBALTA) CAP PO SCH (08:29)
[2019-08-25] MEDS: fluCOnazole (DIFLUCAN) 100 MG TAB PO SCH (08:29)
[2019-08-25] MEDS: MIDODRINE 10 MG (PROAMATINE) TAB PO SCH (08:30)
[2019-08-25] MEDS: FAMOTIDINE 20 MG (PEPCID) TABLET PO SCH (08:30)
[2019-08-25] MEDS: GABAPENTIN 100 MG (NEURONTIN) CAP PO SCH (08:30)
[2019-08-25] MEDS: SENNA W/DOCUSATE (SENOKOT S) TABLET PO SCH (08:31)
[2019-08-25] MEDS: PANTOPRAZOLE 40 MG (PROTONIX) TAB PO SCH (08:31)
--- NOTE | 2019-08-25 08:49 | Physical Therapy Daily Note ---
PT Daily Note-Current Subjective Patient in recliner pre tx, agrees to PT, has no complaints of pain at rest. Patient states she has not been dizzy but has been fatigued and a little "woozy" Appearance Patient in recliner post tx with nurse call, phone, tray, all needs met, chair alarm on. Mental Status Patient Orientation: Person, Place, Situation Attachments: IV Transfers SCALE: Activities may be completed with or without assistive devices. 1-Wcfzlxpuih-jldagof completes the activity by him/herself with no assistance from a helper. 5-Set-up or Clean-up Assistance-helper sets up or cleans up; patient completes activity. [place] assists only prior to or following the activity. 4-Supervision or Touching Assistance-helper provides verbal cues and/or touching/steadying and/or contact guard assistance as patient completes activity. Assistance may be provided throughout the activity or intermittently. 3-Partial/Moderate Assistance-helper does LESS THAN HALF the effort. [place] lifts, holds or supports trunk or limbs, but provides less than half the effort. 2-Substantial/Maximal Assistance-helper does MORE THAN HALF the effort. [place] lifts or holds trunk or limbs and provides more than half the effort. 8-Xkbbvwpfj-pojyot does ALL the effort. Patient does none of the effort to complete the activity. Or, the assistance of 2 or more helpers is required for the patient to complete the activity. If activity was not attempted, code reason: 7-Patient Refused. 9-Not Applicable-not attempted and the patient did not perform the activity before the current illness, exacerbation or injury. 10-Not Attempted due to Environmental Limitations-(lack of equipment, weather restraints, etc.). 88-Not Attempted due to Medical Conditions or Safety Concerns. Roll Left & Right (QC): 6 Sit to Lying (QC): 6 Lying to Sitting/Side of Bed(Q: 6 Sit to Stand (QC): 4 Chair/Urf-pk-Hzrqu Xfer(QC): 4 Toilet Transfer (QC): 4 Car Transfer (QC): 4 Patient performs bed mobility with independence, supine <-> sit with independence, sit to stand with CGA, transfers with CGA, car transfer CGA. Patient needs occasional cues for positioning and safety. Some difficulty with supine to sit but is able to do it without assist. Weight Bearing Right Lower Extremity: Right Full Weight Bearing Left Lower Extremity: Left Full Weight Bearing Gait Training Distance: 20' Walk 10 feet (QC): 4 Walk 50 ft with 2 Turns(QC): 88 Walk 150 ft (QC): 88 Walking 10ft/uneven surface-QC: 4 Gait Persons Needed: 1 Gait Assistive Device: FWW Patient can ambulate 20' with a rolling walker with CGA (including 10' over an uneven surface). Patient ambulates slowly and has trouble lifting feet onto mat to walk over it. Wheelchair Training Does the Pt Use a Wheelchair?: Yes Wheel 50 ft with 2 turns (QC): 4 Type of Wheelchair: Manual Stair Training Stair Training: Handrails/: uses walker #of Steps: 1 1 Step (curb) (QC): 3 4 Steps (QC): 88 12 Steps (QC): 88 Stairs: Pattern: Step to Patient can go up and down 1 step using a rolling walker with min assist. Balance Picking up an Object (QC): 88 Treatments bed mobility and transfers, ambulation, car transfer, ambulation, stairs Assessment Current Status: Fair Progress fatigue and lightheadedness persists but improves with frequent rest breaks PT Short Term Goals Short Term Goals Time Frame: Aug 18, 2019 Roll Left & Right: 6 Sit to lyin Lying to sitting on side of be: 6 Sit to stand: 4 Chair/kro-dj-muzee transfer: 4 Walk 10 feet: 4 Walk 50 feet with two turns: 4 PT Skilled Nursing Goals Cafeteria Worker Goals PT Cafeteria Worker Goals Time Frame: September 01, 2019 Roll Left & Right (QC): 6 Sit to Lying (QC): 6 Lying-Sitting on Side/Bed(QC): 6 Sit to Stand (QC): 6 Chair/Lwh-sz-Vosmq Xfer(QC): 6 Toilet Transfer (QC): 6 Car Transfer (QC): 6 Does the Patient Walk: No and Walking Goal IS indicated Walk 10 feet (QC): 6 Walk 50ft with 2 Turns (QC): 6 Walk 150 ft (QC): 6 Walking 10ft on Uneven Surface: 6 1 Step (curb) (QC): 4 4 Steps (QC): 4 12 Steps (QC): 88 Picking up an Object (QC): 88 Wheel 50 feet with 2 turns (QC: 9 Wheel 150 feet: 9 PT Plan Problem List Problem List: Activity Tolerance, Functional Strength, Safety, Balance, Gait, Transfer, Bed Mobility Treatment/Plan Treatment Plan: Continue Plan of Care Treatment Plan: Bed Mobility, Education, Functional Activity [place], Functional Strength, Group Therapy, Gait, Safety, Therapeutic Exercise, Transfers Treatment Duration: September 01, 2019 Frequency: At least 5 of 7 days/Wk (IRF) Estimated Hrs Per Day: 1.5 hours per day Patient and/or Family Agrees t: Yes Safety Risks/Education Patient Education: Gait Training, Transfer Techniques, Steps, Correct Positioning, Safety Issues Teaching Recipient: Patient Teaching Methods: Demonstration, Discussion Response to Teaching: Reinforcement Needed Time/GCodes Time In: 0800 Time Out: 0845 Total Billed Treatment Time: 45 Total Billed Treatment 1 visit FA 45' ANGELIC TRAN PT August 25, 2019 08:49
--- NOTE | 2019-08-25 08:53 | Therapy Team Discharge Summary ---
Therapy Discharge Summary Discharge Recommendations Date of Discharge Physical Therapy Patient came to rehab with debility following UTI and orthostasis flare of POTS. Upon evaluation patient performs bed mobility with independence, supine <-> sit min assist, sit <-> stand CGA, transfers CGA, car transfer CGA, no ambulation or stairs. Patient has been performing bed mobility and transfer training, balance and endurance training, functional strengthening, stair training, gait training, and education. Patient has made poor progress and has only met her shelter goals for bed mobility. Now, patient performs bed mobility with independence, supine <-> sit with independence, sit to stand with CGA, transfers with CGA, car transfer CGA, ambulates 20' with a rolling walker with CGA (including 10' over an uneven surface), and can go up and down 1 step using a rolling walker with min assist. Patient is discharging from this facility today and will be discharged from PT at this time. Occupational Therapy Decreased Activ Tolerance, Decreased UE Strength PT Care Home Goals Care Home Goals PT Care Home Goals Time Frame: September 01, 2019 Roll Left to Right (QC): 6 Sit to Lying (QC): 6 Lying-Sitting on Side/Bed(QC): 6 Sit to Stand (QC): 6 Chair/Ntx-yi-Xlgia Xfer(QC): 6 Car Transfer (QC): 6 Does the Patient Walk: No and Walking Goal IS indicated Walk 10 feet (QC): 6 Walk 10ft-Uneven Surface(QC): 6 Walk 50ft with 2 Turns (QC): 6 Walk 150 ft (QC): 6 Wheel 50 feet with 2 turns (QC: 9 1 Step (curb) (QC): 4 4 Steps (QC): 4 12 Steps (QC): 88 Picking up an Object (QC): 88 OT Functional Support Analyst Goals Functional Support Analyst Goals Time Frame: August 25, 2019 Eating (QC): 6 Oral Hygiene (QC): 6 Shower/Bathe Self (QC): 4 Upper Body Dressing (QC): 6 Lower Body Dressing (QC): 6 On/Off Footwear (QC): 6 Toileting Hygiene (QC): 6 Toilet/Commode Transfer (QC): 6 Additional Goals: 1-Demonstrate ADL Tasks, 2-Verbalize Understanding, 3- ImproveStrength/[place] 1=Demonstrate adherence to instructed precautions during ADL tasks. 2=Patient will verbalize/demonstrate understanding of assistive devices/modifications for ADL. 3=Patient will improve strength/tolerance for activity to enable patient to perform ADL's. ANGELIC TRAN PT August 25, 2019 08:53
--- NOTE | 2019-08-25 09:13 | Discharge Summary ---
Diagnosis/Chief Complaint Date of Admission Aug 09, 2019 at 13:00 Date of Discharge Discharge Date: August 25, 2019 Discharge Diagnosis Assessment: (1A) Debility with major fall risk requiring IRF (1) s/p Sepsis 3 weeks ago on med-surg (2) Acute UTI recurrent type an now on Cefepime due to resistance and will complete Sunday (3) Abdominal pain chronic (4) Hypokalemia on supplement (5) Neurogenic bladder-self caths maintained Urology at [facility] regular basis (6) Headache (7) Diabetes mellitus (8) Unsteady gait with POTS (Postoral orthostasis tachycardia syndrome) (9) Physical debility (10) DVT prophylaxis (11) Low back pain chronic w/h/o lumbar spine surgery (12) DM (13) Vit B12 def (14) Dehydration requiring frequent IVF boluses required last year by PCP so will set that up at DC with PCP again Plan: Labs and IVF due to syncopal episode from exacerbation of POTS when required Maintain on home meds Permissive hypertension due to severity of her orthostasis when standing up Pain control Bowel regimen to maintain Intensive therapies Straight in/out caths prn Cefepime Cardiology consultation is appreciated Fall risk IVF today until DC (1) Physical debility Status: Acute (2) Unsteady gait Status: Acute (3) POTS (postural orthostatic tachycardia syndrome) Status: Chronic (4) Acute UTI Status: Acute (5) History of UTI Status: Chronic (6) Weakness Status: Chronic (7) Hypokalemia Status: Acute (8) Diabetes mellitus Status: Chronic (9) Neurogenic bladder Status: Chronic (10) DVT prophylaxis Status: Acute (11) Headache Status: Resolved Resolution Date/Time: 08/07/19 @ 12:08 (12) Low back pain (13) GERD (gastroesophageal reflux disease) Status: Chronic (14) Neuropathy Discharge Summary Discharge Physical Examination Allergies: Coded Allergies: amoxicillin (Verified Allergy, Unknown, 05/27/18) clavulanic acid (Verified Allergy, Unknown, 05/27/18) moxifloxacin (Verified Allergy, Unknown, 05/27/18) sulfamethoxazole (Verified Allergy, Unknown, 05/27/18) trimethoprim (Verified Allergy, Unknown, 05/27/18) Vitals & I&Os Vital Signs Date Time Temp Pulse Resp B/P (MAP) Pulse Ox O2 Delivery O2 Flow Rate FiO2 08/25/19 09:00 Room Air 08/25/19 07:00 75 08/25/19 05:20 35.9 20 134/71 (92) 94 General Appearance: Alert, Oriented X3, Cooperative Respiratory: Clear to Auscultation Cardiovascular: Regular Rate Abdominal: Normal Bowel Sounds Extremities: No Clubbing, No Cyanosis Psych/Mental Status: Mental Status NL Hospital Course Was the Problem List Reviewed?: Yes Hospital Course: Pt had a lengthy hospital course for 16 days. Pt was maintained on all of her medications for POTS treatment. Pt required Cefepime antibiotic for resistant UTI organism and she required IV fluids several times during the hospital course of which later she told me that she has had to have that as an outpatient by Dr. Wynne her PCP in the past. Overall her labs remained stable, bowels remained normal, all medications were sent to her pharmacy and I did talk to Dr. Wynne and he will have the hospice conversation with her since it appears she is becoming end stage and not much recovery is attainable due to the severe orthostatic hypotension and tachycardia syndrome. Labs (last 24 hrs) Laboratory Tests 08/09/19 15:45: Glucometer 234H 08/09/19 21:29: Glucometer 174H 08/10/19 04:50: White Blood Count 9.3, Red Blood Count 3.54L, Hemoglobin 10.9L, Hematocrit 33L, Mean Corpuscular Volume 94, Mean Corpuscular Hemoglobin 31, Mean Corpuscular Hemoglobin Concent 33, Red Cell Distribution Width 13.1, Platelet Count 342, Mean Platelet Volume 8.9, Neutrophils (%) (Auto) 59, Lymphocytes (%) (Auto) 27, Monocytes (%) (Auto) 11, Eosinophils (%) (Auto) 3, Basophils (%) (Auto) 0, Neutrophils # (Auto) 5.5, Lymphocytes # (Auto) 2.5, Monocytes # (Auto) 1.0, Eosinophils # (Auto) 0.3, Basophils # (Auto) 0.0, Sodium Level 138, Potassium Level 3.6, Chloride Level 93L, Carbon Dioxide Level 36H, Anion Gap 9, Blood Urea Nitrogen 11, Creatinine 0.83, Estimat Glomerular Filtration Rate > 60, BUN/Creatinine Ratio 13, Glucose Level 157H, Calcium Level 9.1, Corrected Calcium 9.8, Total Bilirubin 0.3, Aspartate Amino Transf (AST/SGOT) 20, Alanine Aminotransferase (ALT/SGPT) 11, Alkaline Phosphatase 65, Total Protein 6.3L, Albumin 3.1L 08/10/19 10:46: Glucometer 240H 08/10/19 15:32: Glucometer 154H 08/10/19 20:52: Glucometer 164H 08/11/19 05:58: Glucometer 120H 08/11/19 10:46: Glucometer 193H 08/11/19 15:43: Glucometer 111H 08/11/19 20:13: Glucometer 85 08/12/19 05:05: Glucometer 92 08/13/19 05:06: Glucometer 111H 08/14/19 05:38: Glucometer 67L 08/14/19 06:35: Glucometer 79 08/15/19 05:13: Glucometer 137H 08/15/19 08:06: Glucometer 201H 08/16/19 05:38: Glucometer 96 08/16/19 16:35: White Blood Count 12.7H, Red Blood Count 3.82L, Hemoglobin 11.5, Hematocrit 36, Mean Corpuscular Volume 94, Mean Corpuscular Hemoglobin 30, Mean Corpuscular Hemoglobin Concent 32, Red Cell Distribution Width 13.2, Platelet Count 522H, Mean Platelet Volume 8.6, Neutrophils (%) (Auto) 66, Lymphocytes (%) (Auto) 22, Monocytes (%) (Auto) 10, Eosinophils (%) (Auto) 1, Basophils (%) (Auto) 0, Neutrophils # (Auto) 8.4H, Lymphocytes # (Auto) 2.8, Monocytes # (Auto) 1.3H, Eosinophils # (Auto) 0.1, Basophils # (Auto) 0.0, Sodium Level 134L, Potassium Level 3.8, Chloride Level 89L, Carbon Dioxide Level 30, Anion Gap 15H, Blood Urea Nitrogen 15, Creatinine 1.11, Estimat Glomerular Filtration Rate 49, BUN/Creatinine Ratio 14, Glucose Level 102, Lactic Acid Level 0.88, Calcium Level 9.7, Corrected Calcium 10.0, Total Bilirubin 0.4, Aspartate Amino Transf (AST/SGOT) 29, Alanine Aminotransferase (ALT/SGPT) 16, Alkaline Phosphatase 77, Total Protein 7.5, Albumin 3.6, Procalcitonin 0.07 08/16/19 18:25: Urine Color YELLOW, Urine Clarity CLOUDY, Urine pH 7.0, Urine Specific [place] 1 .010L, Urine Protein TRACEH, Urine Glucose (UA) NEGATIVE, Urine Ketones 1+H, Urine Nitrite NEGATIVE, Urine Bilirubin NEGATIVE, Urine Urobilinogen 0.2, Urine Leukocyte Esterase 3+H, Urine RBC (Auto) TRACE-I, Urine RBC NONE, Urine WBC 50- 100H, Urine Squamous Epithelial Cells 2-5, Urine Crystals NONE, Urine Bacteria LARGEH, Urine Casts NONE, Urine Mucus NEGATIVE, Urine Culture Indicated YES 08/17/19 04:45: Glucometer 82 08/17/19 10:39: Glucometer 110 08/18/19 05:26: Glucometer 79 08/18/19 05:40: White Blood Count 11.8H, Red Blood Count 4.06L, Hemoglobin 12.0, Hematocrit 38, Mean Corpuscular Volume 93, Mean Corpuscular Hemoglobin 30, Mean Corpuscular Hemoglobin Concent 32, Red Cell Distribution Width 12.7, Platelet Count 440H, Mean Platelet Volume 8.9, Neutrophils (%) (Auto) 70, Lymphocytes (%) (Auto) 19, Monocytes (%) (Auto) 10, Eosinophils (%) (Auto) 0, Basophils (%) (Auto) 0, Neutrophils # (Auto) 8.3H, Lymphocytes # (Auto) 2.3, Monocytes # (Auto) 1.2H, Eosinophils # (Auto) 0.0, Basophils # (Auto) 0.0, Sodium Level 137, Potassium Level 4.0, Chloride Level 95L, Carbon Dioxide Level 28, Anion Gap 14, Blood Urea Nitrogen 8, Creatinine 0.82, Estimat Glomerular Filtration Rate > 60, BUN/Creatinine Ratio 10, Glucose Level 65L, Calcium Level 9.4, Corrected Calcium 9.8, Total Bilirubin 0.4, Aspartate Amino Transf (AST/SGOT) 25, Alanine Aminotransferase (ALT/SGPT) 12, Alkaline Phosphatase 68, Total Protein 7.2, Albumin 3.5 08/18/19 20:34: Glucometer 117H 08/19/19 05:27: Glucometer 109 08/20/19 05:06: Glucometer 93 08/21/19 05:40: Glucometer 126H 08/22/19 05:02: White Blood Count 10.4, Red Blood Count 4.06L, Hemoglobin 12.0, Hematocrit 38, Mean Corpuscular Volume 93, Mean Corpuscular Hemoglobin 30, Mean Corpuscular Hemoglobin Concent 32, Red Cell Distribution Width 12.9, Platelet Count 371, Mean Platelet Volume 8.6, Neutrophils (%) (Auto) 68, Lymphocytes (%) (Auto) 22, Monocytes (%) (Auto) 9, Eosinophils (%) (Auto) 1, Basophils (%) (Auto) 0, Neutrophils # (Auto) 7.1, Lymphocytes # (Auto) 2.3, Monocytes # (Auto) 0.9, Eosinophils # (Auto) 0.1, Basophils # (Auto) 0.0, Sodium Level 139, Potassium Level 4.2, Chloride Level 96L, Carbon Dioxide Level 31, Anion Gap 12, Blood Urea Nitrogen 16, Creatinine 1.00, Estimat Glomerular Filtration Rate 55, BUN/Creatinine Ratio 16, Glucose Level 109H, Calcium Level 9.6, Corrected Calcium 10.1, Total Bilirubin 0.3, Aspartate Amino Transf (AST/SGOT) 18, Alanine Aminotransferase (ALT/SGPT) 9, Alkaline Phosphatase 63, Total Protein 6.8, Alb umin 3.4 08/22/19 05:14: Glucometer 111H 08/23/19 05:52: Glucometer 72 08/24/19 06:21: Glucometer 68L 08/24/19 06:47: Glucometer 88 08/25/19 04:50: White Blood Count 8.6, Red Blood Count 4.04L, Hemoglobin 11.8, Hematocrit 38, Mean Corpuscular Volume 93, Mean Corpuscular Hemoglobin 29, Mean Corpuscular Hemoglobin Concent 32, Red Cell Distribution Width 13.0, Platelet Count 356, Mean Platelet Volume 9.0, Neutrophils (%) (Auto) 60, Lymphocytes (%) (Auto) 28, Monocytes (%) (Auto) 11, Eosinophils (%) (Auto) 1, Basophils (%) (Auto) 0, Neutrophils # (Auto) 5.1, Lymphocytes # (Auto) 2.4, Monocytes # (Auto) 1.0, Eosinophils # (Auto) 0.1, Basophils # (Auto) 0.0, Sodium Level 138, Potassium Level 3.1L, Chloride Level 96L, Carbon Dioxide Level 31, Anion Gap 11, Blood Urea Nitrogen 8, Creatinine 0.71, Estimat Glomerular Filtration Rate > 60, BUN/Creatinine Ratio 11, Glucose Level 74, Calcium Level 8.4L, Corrected Calcium 8.9, Total Bilirubin 0.3, Aspartate Amino Transf (AST/SGOT) 21, Alanine Aminotransferase (ALT/SGPT) 10, Alkaline Phosphatase 65, Total Protein 6.8, Albumin 3.4 08/25/19 05:35: Glucometer 77 Microbiology 08/16/19 Urine Culture - Final, Complete Enterobacter cloacae complex Pending Labs Microbiology Date/Time Source Procedure Growth Status 08/16/19 18:25 Urine Straight Cath, In/Out Urine Culture - Final Enterobacter cloacae complex Complete Laboratory Tests 08/09/19 15:45: Glucometer 234 08/09/19 21:29: Glucometer 174 08/10/19 04:50: White Blood Count 9.3, Red Blood Count 3.54, Hemoglobin 10.9, Hematocrit 33, Mean Corpuscular Volume 94, Mean Corpuscular Hemoglobin 31, Mean Corpuscular Hemoglobin Concent 33, Red Cell Distribution Width 13.1, Platelet Count 342, Mean Platelet Volume 8.9, Neutrophils (%) (Auto) 59, Lymphocytes (%) (Auto) 27, Monocytes (%) (Auto) 11, Eosinophils (%) (Auto) 3, Basophils (%) (Auto) 0, Neutrophils # (Auto) 5.5, Lymphocytes # (Auto) 2.5, Monocytes # (Auto) 1.0, Eosinophils # (Auto) 0.3, Basophils # (Auto) 0.0, Sodium Level 138, Potassium Level 3.6, Chloride Level 93, Carbon Dioxide Level 36, Anion Gap 9, Blood Urea Nitrogen 11, Creatinine 0.83, Estimat Glomerular Filtration Rate > 60, BUN/Creatinine Ratio 13, Glucose Level 157, Calcium Level 9.1, Corrected Calcium 9.8, Total Bilirubin 0.3, Aspartate Amino Transf (AST/SGOT) 20, Alanine Aminotransferase (ALT/SGPT) 11, Alkaline Phosphatase 65, Total Protein 6.3, Albumin 3.1 08/10/19 10:46: Glucometer 240 08/10/19 15:32: Glucometer 154 08/10/19 20:52: Glucometer 164 08/11/19 05:58: Glucometer 120 08/11/19 10:46: Glucometer 193 08/11/19 15:43: Glucometer 111 08/11/19 20:13: Glucometer 85 08/12/19 05:05: Glucometer 92 08/13/19 05:06: Glucometer 111 08/14/19 05:38: Glucometer 67 08/14/19 06:35: Glucometer 79 08/15/19 05:13: Glucometer 137 08/15/19 08:06: Glucometer 201 08/16/19 05:38: Glucometer 96 08/16/19 16:35: White Blood Count 12.7, Red Blood Count 3.82, Hemoglobin 11.5, Hematocrit 36, Mean Corpuscular Volume 94, Mean Corpuscular Hemoglobin 30, Mean Corpuscular Hemoglobin Concent 32, Red Cell Distribution Width 13.2, Platelet Count 522, Mean Platelet Volume 8.6, Neutrophils (%) (Auto) 66, Lymphocytes (%) (Auto) 22, Monocytes (%) (Auto) 10, Eosinophils (%) (Auto) 1, Basophils (%) (Auto) 0, Neutrophils # (Auto) 8.4, Lymphocytes # (Auto) 2.8, Monocytes # (Auto) 1.3, Eosinophils # (Auto) 0.1, Basophils # (Auto) 0.0, Sodium Level 134, Potassium Level 3.8, Chloride Level 89, Carbon Dioxide Level 30, Anion Gap 15, Blood Urea Nitrogen 15, Creatinine 1.11, Estimat Glomerular Filtration Rate 49, BUN/Creatinine Ratio 14, Glucose Level 102, Lactic Acid Level 0.88, Calcium Level 9.7, Corrected Calcium 10.0, Total Bilirubin 0.4, Aspartate Amino Transf (AST/SGOT) 29, Alanine Aminotransferase (ALT/SGPT) 16, Alkaline Phosphatase 77, Total Protein 7.5, Albumin 3.6, Procalcitonin 0.07 08/16/19 18:25: Urine Color YELLOW, Urine Clarity CLOUDY, Urine pH 7.0, Urine Specific [place] 1.010, Urine Protein TRACE, Urine Glucose (UA) NEGATIVE, Urine Ketones 1+, Urine Nitrite NEGATIVE, Urine Bilirubin NEGATIVE, Urine Urobilinogen 0.2, Urine Leukocyte Esterase 3+, Urine RBC (Auto) TRACE-I, Urine RBC NONE, Urine WBC 50- 100, Urine Squamous Epithelial Cells 2-5, Urine Crystals NONE, Urine Bacteria LARGE, Urine Casts NONE, Urine Mucus NEGATIVE, Urine Culture Indicated YES 08/17/19 04:45: Glucometer 82 08/17/19 10:39: Glucometer 110 08/18/19 05:26: Glucometer 79 08/18/19 05:40: White Blood Count 11.8, Red Blood Count 4.06, Hemoglobin 12.0, Hematocrit 38, Mean Corpuscular Volume 93, Mean Corpuscular Hemoglobin 30, Mean Corpuscular Hemoglobin Concent 32, Red Cell Distribution Width 12.7, Platelet Count 440, Mean Platelet Volume 8.9, Neutrophils (%) (Auto) 70, Lymphocytes (%) (Auto) 19, Monocytes (%) (Auto) 10, Eosinophils (%) (Auto) 0, Basophils (%) (Auto) 0, Neutrophils # (Auto) 8.3, Lymphocytes # (Auto) 2.3, Monocytes # (Auto) 1.2, Eosinophils # (Auto) 0.0, Basophils # (Auto) 0.0, Sodium Level 137, Potassium Level 4.0, Chloride Level 95, Carbon Dioxide Level 28, Anion Gap 14, Blood Urea Nitrogen 8, Creatinine 0.82, Estimat Glomerular Filtration Rate > 60, BUN/Creatinine Ratio 10, Glucose Level 65, Calcium Level 9.4, Corrected Calcium 9.8, Total Bilirubin 0.4, Aspartate Amino Transf (AST/SGOT) 25, Alanine Aminotransferase (ALT/SGPT) 12, Alkaline Phosphatase 68, Total Protein 7.2, Albumin 3.5 08/18/19 20:34: Glucometer 117 08/19/19 05:27: Glucometer 109 08/20/19 05:06: Glucometer 93 08/21/19 05:40: Glucometer 126 08/22/19 05:02: White Blood Count 10.4, Red Blood Count 4.06, Hemoglobin 12.0, Hematocrit 38, Mean Corpuscular Volume 93, Mean Corpuscular Hemoglobin 30, Mean Corpuscular Hemoglobin Concent 32, Red Cell Distribution Width 12.9, Platelet Count 371, Mean Platelet Volume 8.6, Neutrophils (%) (Auto) 68, Lymphocytes (%) (Auto) 22, Monocytes (%) (Auto) 9, Eosinophils (%) (Auto) 1, Basophils (%) (Auto) 0, Neutrophils # (Auto) 7.1, Lymphocytes # (Auto) 2.3, Monocytes # (Auto) 0.9, Eosinophils # (Auto) 0.1, Basophils # (Auto) 0.0, Sodium Level 139, Potassium Level 4.2, Chloride Level 96, Carbon Dioxide Level 31, Anion Gap 12, Blood Urea Nitrogen 16, Creatinine 1.00, Estimat Glomerular Filtration Rate 55, BUN/Creatinine Ratio 16, Glucose Level 109, Calcium Level 9.6, Corrected Calcium 10.1, Total Bilirubin 0.3, Aspartate Amino Transf (AST/SGOT) 18, Alanine Aminotransferase (ALT/SGPT) 9, Alkaline Phosphatase 63, Total Protein 6.8, Albumin 3.4 08/22/19 05:14: Glucometer 111 08/23/19 05:52: Glucometer 72 08/24/19 06:21: Glucometer 68 08/24/19 06:47: Glucometer 88 08/25/19 04:50: White Blood Count 8.6, Red Blood Count 4.04, Hemoglobin 11.8, Hematocrit 38, Mean Corpuscular Volume 93, Mean Corpuscular Hemoglobin 29, Mean Corpuscular Hemoglobin Concent 32, Red Cell Distribution Width 13.0, Platelet Count 356, Mean Platelet Volume 9.0, Neutrophils (%) (Auto) 60, Lymphocytes (%) (Auto) 28, Monocytes (%) (Auto) 11, Eosinophils (%) (Auto) 1, Basophils (%) (Auto) 0, Neutrophils # (Auto) 5.1, Lymphocytes # (Auto) 2.4, Monocytes # (Auto) 1.0, Eosinophils # (Auto) 0.1, Basophils # (Auto) 0.0, Sodium Level 138, Potassium Level 3.1, Chloride Level 96, Carbon Dioxide Level 31, Anion Gap 11, Blood Urea Nitrogen 8, Creatinine 0.71, Estimat Glomerular Filtration Rate > 60, BUN/Creatinine Ratio 11, Glucose Level 74, Calcium Level 8.4, Corrected Calcium 8.9, Total Bilirubin 0.3, Aspartate Amino Transf (AST/SGOT) 21, Alanine Aminotransferase (ALT/SGPT) 10, Alkaline Phosphatase 65, Total Protein 6.8, Albumin 3.4 08/25/19 05:35: Glucometer 77 Discharge Home Medications: Active Scripts Active Pantoprazole Sodium 40 Mg Tablet.dr 40 Mg PO BID Clonazepam 0.5 Mg Tablet 0.5 Mg PO BID PRN Fluconazole 100 Mg Tablet 100 Mg PO DAILY Tramadol HCl 50 Mg Tablet 50 Mg PO Q8HR PRN Northera (Droxidopa) 200 Mg Capsule 200 Mg PO TIDWM 30 Days take last dose at least 3 hours before bedtime Famotidine 20 Mg Tablet 20 Mg PO DAILY Reported Duloxetine HCl 30 Mg Capsule. 60 Mg PO DAILY TAKES 2 (30MG) CAPS DAILY D3-50 (Cholecalciferol (Vitamin D3)) 1,250 Mcg Capsule 1,250 Mcg PO DAILY Cyclobenzaprine HCl 10 Mg Tablet 10 Mg PO TID PRN Creon 24,000 Units Capsule (Lipase/Protease/Amylase) 1 Each Capsule. 24,000 Units PO QID LAST FILLED 04-17-2019 #200/50 DAY SUPPLY Midodrine HCl 5 Mg Tablet 5 Mg PO TID Potassium Chloride 10 Meq Tab.er.prt 10 Meq PO BID Promethazine Tablet (Promethazine HCl) 25 Mg Tablet 25 Mg PO Q6H PRN Flonase Allergy Relief (Fluticasone Propionate) 9.9 Ml Cyrus.susp 1 Cyrus NS D AILY PRN Magnesium (Magnesium Oxide) 500 Mg Capsule 500 Mg PO DAILY Metformin HCl ER (Metformin HCl) 500 Mg Tab.er.24h 500 Mg PO BID Gabapentin 100 Mg Capsule 100 Mg PO TID Fludrocortisone Acetate 0.1 Mg Tab 0.2 Mg PO DAILY TAKES 2 (0.1MG) TABLETS Benadryl (Diphenhydramine HCl) 25 Mg Capsule 25-50 Mg PO BID PRN Colestipol HCl 1 Gm Tablet 1 Gm PO BID Instructions to patient/family Please see electronic discharge instructions given to patient. Diagnosis/Problems Diagnosis/Problems (1) Physical debility Status: Acute (2) Unsteady gait Status: Acute (3) POTS (postural orthostatic tachycardia syndrome) Status: Chronic (4) Acute UTI Status: Acute (5) History of UTI Status: Chronic (6) Weakness Status: Chronic (7) Hypokalemia Status: Acute (8) Diabetes mellitus Status: Chronic (9) Neurogenic bladder Status: Chronic (10) DVT prophylaxis Status: Acute (11) Headache Status: Resolved Resolution Date/Time: 08/07/19 @ 12:08 (12) Low back pain (13) GERD (gastroesophageal reflux disease) Status: Chronic (14) Neuropathy Clinical Quality Measures DVT/VTE Risk/Contraindication: Risk Factor Score Per Nursin RFS Level Per Nursing on Admit: 4+=Very High MALIKA VÁZQUEZ DO August 25, 2019 09:12
[2019-08-25] MEDS ORDERED: KCL 10 MEQ TAB (MICRO K) PO NR (09:30)
--- NOTE | 2019-08-25 09:40 | Occupational Ther Daily Note ---
OT Current Status-Daily Note Subjective Pt seen this am in recliner chair. Pt states she is leaving in ~40 minutes and is already dressed for the day. Pt's QCs gathered by self report. Nursing staff not present from this weekend when pt took sponge bath. Mental Status/Objective Patient Orientation: Person, Place, Time, Situation, Normal For Age Attachments: IV, Telemetry ADL-Treatment Therapy Code Descriptions/Definitions Functional [place] Measure: 0=Not Assessed/NA 4=Minimal Assistance 1=Total Assistance 5=Supervision or Setup 2=Maximal Assistance 6=Modified [place] 3=Moderate Assistance 7=Complete IndependenceSCALE: Activities may be completed with or without assistive devices. 1-Isnvspbnbw-rqwgsic completes the activity by him/herself with no assistance from a helper. 5-Set-up or Clean-up Assistance-helper sets up or cleans up; patient completes activity. [place] assists only prior to or following the activity. 4-Supervision or Touching Assistance-helper provides verbal cues and/or touching/steadying and/or contact guard assistance as patient completes activity. Assistance may be provided throughout the activity or intermittently. 3-Partial/Moderate Assistance-helper does LESS THAN HALF the effort. [place] lifts, holds or supports trunk or limbs, but provides less than half the effort. 2-Substantial/Maximal Assistance-helper does MORE THAN HALF the effort. [place] lifts or holds trunk or limbs and provides more than half the effort. 4-Aylbmpkmx-serxhj does ALL the effort. Patient does none of the effort to complete the activity. Or, the assistance of 2 or more helpers is required for the patient to complete the activity. If activity was not attempted, code reason: 7-Patient Refused. 9-Not Applicable-not attempted and the patient did not perform the activity before the current illness, exacerbation or injury. 10-Not Attempted due to Environmental Limitations-(lack of equipment, weather restraints, etc.). 88-Not Attempted due to Medical Conditions or Safety Concerns. Eating (QC): 6 Oral Hygiene (QC): 6 Bathing Location: L Arm, R Arm, L Upper Leg, R Upper Leg, L Lower Leg (including foot), R Lower Leg (including foot), Chest, Abdomen, Buttocks, Perineal Area Shower/Bathe Self (QC): 4 (Per pt report, pt able to reach all areas this weekend during sponge bath. Completes with SBA-CGA in stance.) Upper Body Dressing (QC): 5 (s/u) Lower Body Dressing (QC): 3 (Min A to thread 1/2 BLE into pants, min A to help hike over hips.) On/Off Footwear: 6 (Pt completes doffing/ donning socks with IND on this date.) Toileting Hygiene (QC): 4 (Min A - CGA per pt report for sit to stand, CGA during task to assist.) Toilet Transfer (QC): 4 (Min A- CGA.) Other Treatment Pt declines ADLs on this date as she states she is already dressed/ showered this weekend, states she is d/c'ing this morning in ~40 minutes. Pt reports ADL QCs, pt and OT discuss home environment and 's supervision during tasks and assistance during some tasks. Pt states she has multiple chairs around the home and will sit whenever feeling light headed. Pt denies needs, all questions addressed, pt left in chair with all needs met, call light in reach. Education OT Patient Education: Energy conservation, Safety issues Teaching Recipient: Patient Teaching Methods: Discussion Response to Teaching: Verbalize Understanding OT Short Term Goals Short Term Goals Time Frame: Aug 18, 2019 Upper body dressin Lower body dressin Putting on/taking off footwear: 4 OT Jail Goals Chassis Wirer Goals Time Frame: August 25, 2019 Eating (QC): 6 Oral Hygiene (QC): 6 Toileting Hygiene (QC): 6 Shower/Bathe Self (QC): 4 Upper Body Dressing (QC): 6 Lower Body Dressing (QC): 6 On/Off Footwear (QC): 6 Additional Goals: 1-Demonstrate ADL Tasks, 2-Verbalize Understanding, 3- ImproveStrength/[place] 1=Demonstrate adherence to instructed precautions during ADL tasks. 2=Patient will verbalize/demonstrate understanding of assistive devices/modifications for ADL. 3=Patient will improve strength/tolerance for activity to enable patient to perform ADL's. OT Education/Plan Problem List/Assessment Assessment: Decreased Activ Tolerance, Dependent Transfers, Impaired Funct Balance, Impaired I ADL's, Impaired Self-Care Skills Discharge Recommendations Plan/Recommendations: Continue POC Therapy Discharge Recommendati: Intermittent Supervision, Home & Family Treatment Plan/Plan of Care Treatment,Training & Education: Yes Patient would benefit from OT for education, treatment and training to promote independence in ADL's, mobility, safety and/or upper extremity function for ADL's. Plan of Care: ADL Retraining, Functional Mobility, Group Exercise/Act as Ind, UE Funct Exercise/Act Treatment Duration: August 25, 2019 Frequency: At least 5 of 7 days/Wk (IRF) Estimated Hrs Per Day: 1.5 hours per day Agreement: Yes Rehab Potential: Fair Time/GCodes Start Time: 09:15 Stop Time: 09:30 Total Time Billed (hr/min): 15 Billed Treatment Time 1, FA (15) CATALINA DE LEON OTR August 25, 2019 09:40
[2019-08-25] MEDS ORDERED: CEFEPIME INJECTION 2,000 MG in WATER (STERILE) FOR INJECTION 20 ML IV NR (09:52)
--- NOTE | 2019-08-25 10:08 | Cardiology Progress Note ---
Subjective Date Seen by Provider: August 25, 2019 Time Seen by Provider: 08:45 Subjective/Events-last exam Patient sitting up in chair, denies any recent dizzy spells. Denies any chest pain Review of Systems General: No Chills, No Night Sweats, No Fatigue, No Malaise, No Appetite, No Other HEENT: No Head Aches, No Visual Changes, No Eye Pain, No Ear Pain, No Dysphasia, No Sinus Congestion, No Post Nasal Drip, No Sore Throat, No Other Pulmonary: No Dyspnea, No Cough, No Pleuritic Chest Pain, No Other Cardiovascular: No: Chest Pain, Palpitations, Orthopnea, Paroxysmal Noc. Dyspnea, Edema, Lt Headedness, Other Objective-Cardiology Exam Last Set of Vital Signs Vital Signs 08/25/19 08/25/19 05:20 07:00 Temp 35.9 Pulse 75 Resp 20 B/P (MAP) 134/71 (92) Pulse Ox 94 O2 Delivery Room Air Capillary Refill : Less Than 3 Seconds I&O Intake and Output 08/25/19 00:00 Intake Total 3620 ml Output Total 2450 ml Balance 1170 ml Intake Oral 1600 ml IV Total 2020 ml Output Urine Total 2450 ml # Voids 1 General: Alert, Oriented X3, Cooperative HEENT: Atraumatic, PERRLA Neck: Supple, No JVD, No Thyromegaly Lungs: Clear to Auscultation, Normal Air Movement Heart: Regular Rate, Normal S1, Normal S2, No Murmurs Abdomen: Normal Bowel Sounds, Soft, No Tenderness, No Hepatosplenomegaly, No Masses Extremities: No Clubbing, No Cyanosis, No Edema, Normal Pulses, No Tenderness/Swelling Skin: No Rashes, No Breakdown, No Significant Lesion Neuro: Normal Speech, Cranial Nerves 3-12 NL Psych/Mental Status: Mental Status NL, Mood NL Results Lab Laboratory Tests 08/25/19 04:50 A/P-Cardiology Admission Diagnosis POTS Recurrent UTI Generalized weakness HLP Assessment/Plan POTS- patient follows with cardiology at [facility], reporting recent workup done there. Currently maintained on Florinef and Midodrine and Northera. Continue to increase fluid and salt intake. Recurrent UTI- CRE, continue on antibiotic, continue to monitor. Generalized weakness, continue with PT/OT HLP, continue to monitor as outpatient DM, management per medical services. Ok for discharge from cardiology standpoint, f/u with claims coordinator in Patient was seen and evaluated with Heydi, examination performed, management plan was discussed, agree with the current scribed note, I made few changes to the note using Italic font Patient was sitting in a chair, reporting improvement, excited that she is going home today Lungs were clear to auscultation, heart is regular Continue on current medication, encouraged fluid intake, monitor electrolytes, replace potassium, managed by primary care physician Patient will follow-up with her primary claims coordinator in [place] Clinical Quality Measures DVT/VTE Risk/Contraindication: Risk Factor Score Per Nursin RFS Level Per Nursing on Admit: 4+=Very High HEYDI FREED August 25, 2019 10:08 ISRAEL GAMBOA MD August 25, 2019 10:43
--- NOTE | 2019-08-25 11:23 | NUR ---
JORDANA GARCIA demonstrates understanding of discharge instructions and accurately returns instructions upon questioning. Copy of Post-Discharge Instructions given to patient. JORDANA GARCIA is able to manage continuing needs after discharge with help of . Patients belongings returned to patient. Patient discharged from 229-1 on 07/26/19 at 1030 . JORDANA GARCIA left floor via wheel chair , accompanied by staff and family() was waiting at the hospital entrance ER.
--- NOTE | 2019-08-25 11:43 | Therapy Team Discharge Summary ---
Therapy Discharge Summary Discharge Recommendations Date of Discharge August 25, 2019 at 11:25 Occupational Therapy Pt admits with debility following POTS onset. Pt admitting QCs: showering 3, UB 5, LB 3, footwear 3, toileting 3. Pt and OT work towards higher functional IND through ADL training, AE, exercise for strengthening/ endurance, and safety training. Pt limited by blood pressure positional and nausea/ vomiting positional. Pt d/c'ing QCs: eating/ oral hygiene 6, bathing 4, UB 5, LB 3, footwear 6, toileting and transfer 4. Pt d/c's with home, d/c OT at this time. Decreased Activ Tolerance, Dependent Transfers, Impaired Funct Balance, Impaired I ADL's, Impaired Self-Care Skills PT Straightening Machine Feeder Goals Straightening Machine Feeder Goals PT Straightening Machine Feeder Goals Time Frame: September 01, 2019 Roll Left to Right (QC): 6 Sit to Lying (QC): 6 Lying-Sitting on Side/Bed(QC): 6 Sit to Stand (QC): 6 Chair/Pad-bp-Pmkag Xfer(QC): 6 Car Transfer (QC): 6 Does the Patient Walk: No and Walking Goal IS indicated Walk 10 feet (QC): 6 Walk 10ft-Uneven Surface(QC): 6 Walk 50ft with 2 Turns (QC): 6 Walk 150 ft (QC): 6 Wheel 50 feet with 2 turns (QC: 9 1 Step (curb) (QC): 4 4 Steps (QC): 4 12 Steps (QC): 88 Picking up an Object (QC): 88 OT Straightening Machine Feeder Goals Straightening Machine Feeder Goals Time Frame: August 25, 2019 Eating (QC): 6 Oral Hygiene (QC): 6 Shower/Bathe Self (QC): 4 Upper Body Dressing (QC): 6 Lower Body Dressing (QC): 6 On/Off Footwear (QC): 6 Toileting Hygiene (QC): 6 Toilet/Commode Transfer (QC): 6 Additional Goals: 1-Demonstrate ADL Tasks, 2-Verbalize Understanding, 3- ImproveStrength/Bushra 1=Demonstrate adherence to instructed precautions during ADL tasks. 2=Patient will verbalize/demonstrate understanding of assistive devices/modifications for ADL. 3=Patient will improve strength/tolerance for activity to enable patient to perform ADL's. CATALINA DE LEON OTR August 25, 2019 11:43
--- NOTE | 2019-08-25 14:06 | NUR ---
CM/SS DISCHARGE IMM2 presented to patient, signed, charted. Discharge has been planned over the past 5 days. Patient excited to return home. Spouse/family to pick pulling machine operator at 1000. [facility]: Referral finalized with Shaylee Galvan, spoke with staff at intake as well as Mariaj[facility] Galvan office. RN PT OT services ordered. Patient will received IV fluids 3 times weekly for 4 weeks at [facility]. Spouse understands they are to call Dr. Omi Wynne office to schedule, first infusion this August 26. Provided clinical continuum of care information to: [facility] Gal[facility] and PCP Dr. Omi Galvan, [facility]
[2019-08-25] MEDS ORDERED: CEFEPIME INJECTION 2,000 MG in WATER (STERILE) FOR INJECTION 20 ML IV SCH (15:00)
== END 2019-08-25 11:25 | disposition home health service (06) | DRG 309 ==
PROVIDERS: ADMIT Internal Medicine; ATTEND Internal Medicine
DX: I49.8 Other specified cardiac arrhythmias (principal); I95.1 Orthostatic hypotension; R26.81 Unsteadiness on feet; E86.0 Dehydration; Z91.81 History of falling; N39.0 Urinary tract infection, site not specified; Z16.19 Resistance to other specified beta lactam antibiotics; B37.3 Candidiasis of vulva and vagina; I10 Essential (primary) hypertension; E11.40 Type 2 diabetes mellitus with diabetic neuropathy, unspecified; N31.9 Neuromuscular dysfunction of bladder, unspecified; E78.5 Hyperlipidemia, unspecified; K21.9 Gastro-esophageal reflux disease without esophagitis; M19.91 Primary osteoarthritis, unspecified site; M54.9 Dorsalgia, unspecified; K59.00 Constipation, unspecified; F41.9 Anxiety disorder, unspecified; F32.9 Major depressive disorder, single episode, unspecified; E53.8 Deficiency of other specified B group vitamins; Z90.49 Acquired absence of other specified parts of digestive tract
CPT/HCPCS: 36415; 80053; 81000; 82962; 83605; 84145; 85025; 87077; 87088; 87186; 93005

== ENCOUNTER → 2019-09-04 | Outpatient (CLI) | payer MEDICARE, OTHER ==
[~2019-09-04] MED LIST changes: -ACETAMINOPHEN 500 MG TAB (TYLENOL) PO PRN; -ALPRAZolam 0.25 MG (XANAX) TAB PO PRN; -DOCUSATE SODIUM 100 MG (COLACE) CAP PO PRN; -DOCUSATE SODIUM 100 MG (COLACE) CAP PO SCH; -FLEET ENEMA ADULT 1 EA BTL PR PRN; +FLUC100T6 PO; -LACTULOSE SYRUP 10GM/15ML (ENULOSE) 30ML UDC PO PRN; -LOPERAMIDE 2 MG (IMODIUM) TABLET PO PRN; -MELATONIN 3 MG TABLET PO PRN; +PANT40TA3 PO; -diphenhydrAMINE 25 MG TAB (BENADRYL) PO PRN; -guaiFENesin/CODEINE (ROBITUSSIN AC) 10ML UDC PO PRN
[2019-09-04 16:56] LABS: ALANINE AMINOTRANSFERASE 10 U/L (0-55); ALKALINE PHOSPHATASE 75 U/L (40-136); BILIRUBIN,TOTAL 0.2 MG/DL (0.1-1.0); BUN/CREATININE RATIO 17; CALCIUM 8.9 MG/DL (8.5-10.1); CARBON DIOXIDE 33 MMOL/L (21-32); CHLORIDE 88 MMOL/L (98-107); CREATININE SERUM 0.63 MG/DL (0.60-1.30); GFR ESTIMATED > 60; GLUCOSE 284 MG/DL (70-105); POTASSIUM 3.3 MMOL/L (3.6-5.0); SODIUM 138 MMOL/L (135-145); TOTAL PROTEIN 6.7 GM/DL (6.4-8.2)
[2019-09-04 16:57] LABS: ALBUMIN 3.5 GM/DL (3.2-4.5)
== END ==
LOC: LAB FS 16:20
PROVIDERS: ATTEND Family Medicine
DX: E87.6 Hypokalemia (principal)
CPT/HCPCS: 36415; 80053

== ENCOUNTER → 2019-10-27 | Outpatient (CLI) | payer MEDICARE, OTHER ==
[~2019-10-27] MED LIST changes: +METF-865 PO; -METF500T19 PO
[2019-10-27 18:17] LABS: MEAN CORPUSCULAR HEMOGLOBIN 29 PG (25-34)
[2019-10-27 18:18] LABS: BASOPHILS # (AUTO) 0.1 10^3/uL (0.0-0.1); BASOPHILS % (AUTO) 1 % (0-10); EOSINOPHILS # (AUTO) 0.1 10^3/uL (0.0-0.3); EOSINOPHILS % (AUTO) 1 % (0-10); HEMATOCRIT 38 % (35-52); LYMPHOCYTES # (AUTO) 1.8 X 10^3 (1.0-4.0); LYMPHOCYTES % (AUTO) 20 % (12-44); MEAN CORPUSCULAR HGB CONC 32 G/DL (32-36); MEAN CORPUSCULAR VOLUME 92 FL (80-99); MEAN PLATELET VOLUME 9.3 FL (7.4-10.4); MONOCYTES # (AUTO) 0.5 X 10^3 (0.0-1.0); MONOCYTES % (AUTO) 6 % (0-12); NEUTROPHILS # (AUTO) 6.5 X 10^3 (1.8-7.8); NEUTROPHILS % (AUTO) 72 % (42-75); PLATELET COUNT 464 10^3/uL (130-400); RED CELL DISTRIBUTION WIDTH 14.2 % (10.0-14.5)
[2019-10-27 18:52] LABS: BILIRUBIN,TOTAL 0.3 MG/DL (0.1-1.0); CALCIUM 9.5 MG/DL (8.5-10.1); CREATININE SERUM 1.13 MG/DL (0.60-1.30); POTASSIUM 4.5 MMOL/L (3.6-5.0)
[2019-10-27 18:53] LABS: ALBUMIN 3.8 GM/DL (3.2-4.5); TOTAL PROTEIN 7.7 GM/DL (6.4-8.2)
== END ==
LOC: LAB FS 17:56
PROVIDERS: ATTEND Nurse Practitioner Family
DX: E11.40 Type 2 diabetes mellitus with diabetic neuropathy, unspecified (principal); E86.0 Dehydration; I50.22 Chronic systolic (congestive) heart failure; H53.2 Diplopia
CPT/HCPCS: 36415; 80053; 85025

== ENCOUNTER 2019-12-15 11:30 | Emergency (ER) | payer MEDICARE, OTHER ==
[~2019-12-15] VITALS: Ht 160 cm; Wt 60.5 kg
[2019-12-15] MEDS ORDERED: NS IV 1000 ML 1,000 ML IV SCH ×2 (12:00→14:00)
--- NOTE | 2019-12-15 12:04 | ED General ---
General Chief Complaint: Glucose Problems Stated Complaint: HYPERGLYCEMIA (OVER 500) History of Present Illness Date Seen by Provider: Dec 15, 2019 Time Seen by Provider: 11:57 Initial Comments 69-year-old female presents with elevated blood sugar for the past several days. Readings have been "out of range high". History of type II diabetes taking metformin and sulfonylurea. States that after her recent hospitalization for stroke at [facility] "she was taken off all of her medications". States she is only been taking one half of her glipizide daily, but this has not been working. Patient is otherwise without complaints, denies any weakness or neurologic changes. Denies any chest pain or shortness of air. Denies any abdominal pain nausea, fever or chills. Allergies and Home Medications Allergies Coded Allergies: amoxicillin (Verified Allergy, Unknown, 05/27/18) clavulanic acid (Verified Allergy, Unknown, 05/27/18) moxifloxacin (Verified Allergy, Unknown, 05/27/18) sulfamethoxazole (Verified Allergy, Unknown, 05/27/18) trimethoprim (Verified Allergy, Unknown, 05/27/18) Home Medications Cholecalciferol (Vitamin D3) 1,250 Mcg Capsule, 1,250 MCG PO DAILY, (Reported) Clonazepam 0.5 Mg Tablet, 0.5 MG PO BID PRN for ANXIETY Prescribed by: MALIKA VÁZQUEZ on 08/24/19 164 Colestipol HCl 1 Gm Tablet, 1 GM PO BID, (Reported) Cyclobenzaprine HCl 10 Mg Tablet, 10 MG PO TID PRN for MUSCLE SPASMS, (Reported) Diphenhydramine HCl 25 Mg Capsule, 25-50 MG PO BID PRN for SLEEP/ITCHING, (Reported) Droxidopa 200 Mg Capsule, 200 MG PO TIDWM take last dose at least 3 hours before bedtime Prescribed by: YIN OLIVER on 08/10/19 1400 Duloxetine HCl 30 Mg Capsule.dr, 60 MG PO DAILY, (Reported) TAKES 2 (30MG) CAPS DAILY Famotidine 20 Mg Tablet, 20 MG PO DAILY Prescribed by: KURT TEMPLE on 08/08/19 1208 Fluconazole 100 Mg Tablet, 100 MG PO DAILY Prescribed by: MALIKA VÁZQUEZ on 08/24/19 1642 Fludrocortisone Acetate 0.1 Mg Tab, 0.2 MG PO DAILY, (Reported) TAKES 2 (0.1MG) TABLETS Fluticasone Propionate 9.9 Ml [place].susp, 1 SPRAY NS DAILY PRN for ALLERGIES, (Reported) Gabapentin 100 Mg Capsule, 100 MG PO TID, (Reported) Lipase/Protease/Amylase 1 Each Capsule.dr, 24,000 UNITS PO QID, (Reported) LAST FILLED 04-17-2019 #200/50 DAY SUPPLY Magnesium Oxide 500 Mg Capsule, 500 MG PO DAILY, (Reported) Metformin HCl 500 Mg Tab.er.24h, 500 MG PO BID, (Reported) Midodrine HCl 5 Mg Tablet, 5 MG PO TID, (Reported) Pantoprazole Sodium 40 Mg Tablet.dr, 40 MG PO BID Prescribed by: MALIKA VÁZQUEZ on 08/24/19 164 Potassium Chloride 10 Meq Tab.er.prt, 10 MEQ PO BID, (Reported) Promethazine HCl 25 Mg Tablet, 25 MG PO Q6H PRN for NAUSEA/VOMITING-2ND LINE, (Reported) Tramadol HCl 50 Mg Tablet, 50 MG PO Q8HR PRN for PAIN-SEVERE (8-10) Prescribed by: MALIKA VÁZQUEZ on 08/24/19 1643 Patient Home Medication List Home Medication List Reviewed: Yes Review of Systems Review of Systems Constitutional: No dizziness, No fever, No malaise, No weakness EENTM: no symptoms reported Respiratory: No cough, No short of breath Cardiovascular: No chest pain, No edema, No palpitations Gastrointestinal: No abdominal pain, No constipation, No diarrhea, No loss of appetite, No vomiting Musculoskeletal: No back pain, No joint pain Skin: No change in color, No lesions, No rash Psychiatric/Neurological: Denies Headache, Denies Weakness Past Fuzcaun-Prehip-Wiwunq Hx Past Med/Social Hx: Reviewed Nursing Past Med/Soc Hx Patient Social History Alcohol Use: Denies Use Number of Drinks Today: AA Alcohol Beverage of Choice: Beer Recreational Drug Use: No Smoking Status: Former Smoker Type Used: Cigarettes Former Smoker, Quit: Feb 20, 1995 2nd Hand Smoke Exposure: No Recent Foreign Travel: No Contact w/Someone Who Travel: No Recent Hopitalizations: No Physical Abuse: No Sexual Abuse: No Mistreated: No Fear: No Immunizations Up To Date Tetanus Booster (TDap): Unknown Date of Pneumonia Vaccine: Aug 09, 2016 Date of Influenza Vaccine: May 27, 2018 Seasonal Allergies Seasonal Allergies: Yes Past Medical History Appendectomy, Gallbladder, Orthopedic Respiratory: No Currently Using CPAP: No Currently Using BIPAP: No Cardiac: Yes (orthostaic hypotension) Hypertension, Hypotension, Palpitations Neurological: No Neuropathy, Spinal Cord Injury Female Reproductive Disorders: Denies Sexually Transmitted Disease: No HIV/AIDS: No Genitourinary: Yes (self-catheterization) Neurogenic Bladder Gastrointestinal: Yes Diverticulosis, Pancreatitis, Chronic Diarrhea Musculoskeletal: Yes Back Injury Endocrine: Yes Diabetes, Non-Insulin dep HEENT: Yes Cataract Loss of Vision: Denies Hearing Impairment: Denies Cancer: No Psychosocial: No Integumentary: No Blood Disorders: No Adverse Reaction/Blood Tranf: No Family Medical History Completed stroke 19 MOTHER (cva) G8 SISTER (cva) Diabetes mellitus 19 FATHER (neurpathy) Headache disorder 19 MOTHER (migraines) G8 BROTHER (migraines) G8 SISTER (migraines) Neoplasm 19 MOTHER (cancer) Diabetes Physical Exam Vital Signs Vital Signs - First Documented 12/15/19 11:40 Temp 36.4 Pulse 83 Resp 20 B/P (MAP) 135/81 (99) Pulse Ox 98 O2 Delivery Room Air Capillary Refill : Height, Weight, BMI Height: 5'2.00" Weight: 144lbs. 0.9oz. 65.056966pi; 23.39 BMI Method: General Appearance: No Apparent Distress, WD/WN HEENT: PERRL/EOMI, Normal ENT Inspection Neck: Full Range of Motion, Non Tender, Supple Respiratory: Chest Non Tender, Lungs Clear Cardiovascular: Regular Rate, Rhythm, No Edema Gastrointestinal: Normal Bowel Sounds, Non Tender, Soft Back: Normal Inspection, No CVA Tenderness Extremity: Normal Capillary Refill, Normal Inspection, Non Tender, No Calf Tenderness Neurologic/Psychiatric: Alert, Oriented x3, Normal Mood/Affect Progress/Results/Core Measures Suspected Sepsis SIRS Temperature: Pulse: Respiratory Rate: Laboratory Tests 12/15/19 12:10: White Blood Count 12.1H Blood Pressure / Mean: Laboratory Tests 12/15/19 12:10: Creatinine 1.13, Platelet Count 455H, Total Bilirubin 0.2 Results/Orders Lab Results Laboratory Tests Test 12/15/19 11:49 12/15/19 12:10 12/15/19 12:27 12/15/19 13:43 Range/Units Glucometer > 600 *H 467 *H 70-110 MG/DL White Blood Count 12.1 H 4.3-11.0 10^3/uL Red Blood Count 3.80 L 4.35-5.85 10^6/uL Hemoglobin 11.5 11.5-16.0 G/DL Hematocrit 34 L 35-52 % Mean Corpuscular Volume 90 80-99 FL Mean Corpuscular Hemoglobin 30 25-34 PG Mean Corpuscular Hemoglobin Concent 34 32-36 G/DL Red Cell Distribution Width 13.1 10.0-14.5 % Platelet Count 455 H 130-400 10^3/uL Mean Platelet Volume 95.0 H 7.4-10.4 FL Neutrophils (%) (Auto) 70 42-75 % Lymphocytes (%) (Auto) 21 12-44 % Monocytes (%) (Auto) 7 0-12 % Eosinophils (%) (Auto) 1 0-10 % Basophils (%) (Auto) 0 0-10 % Neutrophils # (Auto) 8.5 H 1.8-7.8 X 10^3 Lymphocytes # (Auto) 2.6 1.0-4.0 X 10^3 Monocytes # (Auto) 0.8 0.0-1.0 X 10^3 Eosinophils # (Auto) 0.1 0.0-0.3 10^3/uL Basophils # (Auto) 0.0 0.0-0.1 10^3/uL Sodium Level 127 L 135-145 MMOL/L Potassium Level 4.7 3.6-5.0 MMOL/L Chloride Level 90 L 98-107 MMOL/L Carbon Dioxide Level 23 21-32 MMOL/L Anion Gap 14 5-14 MMOL/L Blood Urea Nitrogen 23 H 7-18 MG/DL Creatinine 1.13 0.60-1.30 MG/DL Estimat Glomerular Filtration Rate 48 BUN/Creatinine Ratio 20 Glucose Level 611 *H 70-105 MG/DL Calcium Level 9.3 8.5-10.1 MG/DL Corrected Calcium 9.5 8.5-10.1 MG/DL Total Bilirubin 0.2 0.1-1.0 MG/DL Aspartate Amino Transf (AST/SGOT) 23 5-34 U/L Alanine Aminotransferase (ALT/SGPT) 19 0-55 U/L Alkaline Phosphatase 107 40-136 U/L Total Protein 7.7 6.4-8.2 GM/DL Albumin 3.8 3.2-4.5 GM/DL Arterial Blood pH 7.34 *L 7.37-7.43 Test 12/15/19 14:29 12/15/19 15:53 Range/Units Urine Color PALE YELLOW Urine Clarity SLT CLOUDY Urine pH 6.5 5-9 Urine Specific Elmer 1.010 L 1.016-1.022 Urine Protein NEGATIVE NEGATIVE Urine Glucose (UA) 3+ H NEGATIVE Urine Ketones NEGATIVE NEGATIVE Urine Nitrite NEGATIVE NEGATIVE Urine Bilirubin NEGATIVE NEGATIVE Urine Urobilinogen 0.2 < = 1.0 MG/DL Urine Leukocyte Esterase NEGATIVE NEGATIVE Urine RBC (Auto) NEGATIVE NEGATIVE Urine RBC NONE /HPF Urine WBC 2-5 /HPF Urine Squamous Epithelial Cells 0-2 /HPF Urine Crystals NONE /LPF Urine Bacteria LARGE H /HPF Urine Casts NONE /LPF Urine Mucus NEGATIVE /LPF Urine Culture Indicated YES Glucometer 307 H 70-110 MG/DL My Orders Orders - ROVENSTMARY CARMEN BANDA DO Abg Ph (12/15/19 11:57) Ed Iv/Invasive Line Start (12/15/19 11:57) Cbc With Automated Diff (12/15/19 11:57) Comprehensive Metabolic Panel (12/15/19 11:57) Urinalysis (12/15/19 11:57) Ns Iv 1000 Ml (Sodium Chloride 0.9%) (12/15/19 12:00) Ns Iv 1000 Ml (Sodium Chloride 0.9%) (12/15/19 14:00) Urine Culture (12/15/19 14:29) Vital Signs/I&O 12/15/19 11:40 Temp 36.4 Pulse 83 Resp 20 B/P (MAP) 135/81 (99) Pulse Ox 98 O2 Delivery Room Air Capillary Refill : Progress Note : Progress Note spoke to pt's PCP, Dr Daniele Wynne @ [phone] regarding pt's uncontrolled DM and elevated BS for past few days. Pt only taking 1/2 of her glipizide and no longer taking metformin. Has appt w Dr Wynne tomorrow Departure Impression Primary Impression: Hyperglycemia Additional Impression: DM hyperosmolarity type II, uncontrolled Disposition: 01 HOME, SELF-CARE Condition: Improved Departure-Patient Inst. Decision time for Depature: 15:56 Referrals: FRANKY WYNNE MD (PCP/Family) Primary Care Physician Patient Instructions: Hyperglycemia, Adult (DC), Type 2 Diabetes Add. Discharge Instructions: Keep your appointment to see your PCP, Dr Wynne tomorrow as previously planned. Please discuss your Diabetes medication and management. All discharge instructions reviewed with patient and/or family. Voiced understanding. MARY CARMEN ESCALANTE DO Dec 15, 2019 12:04
[2019-12-15 12:22] LABS: HEMATOCRIT 34 % (35-52); HEMOGLOBIN 11.5 G/DL (11.5-16.0); MEAN CORPUSCULAR HEMOGLOBIN 30 PG (25-34); MEAN CORPUSCULAR HGB CONC 34 G/DL (32-36); MEAN CORPUSCULAR VOLUME 90 FL (80-99); PLATELET COUNT 455 10^3/uL (130-400); RED CELL DISTRIBUTION WIDTH 13.1 % (10.0-14.5); WHITE BLOOD COUNT 12.1 10^3/uL (4.3-11.0)
[2019-12-15 12:23] LABS: BASOPHILS % (AUTO) 0 % (0-10); EOSINOPHILS # (AUTO) 0.1 10^3/uL (0.0-0.3); EOSINOPHILS % (AUTO) 1 % (0-10); LYMPHOCYTES # (AUTO) 2.6 X 10^3 (1.0-4.0); LYMPHOCYTES % (AUTO) 21 % (12-44); MONOCYTES # (AUTO) 0.8 X 10^3 (0.0-1.0); MONOCYTES % (AUTO) 7 % (0-12); NEUTROPHILS # (AUTO) 8.5 X 10^3 (1.8-7.8); NEUTROPHILS % (AUTO) 70 % (42-75)
[2019-12-15 12:45] LABS: POTASSIUM 4.7 MMOL/L (3.6-5.0)
[2019-12-15 12:46] LABS: BILIRUBIN,TOTAL 0.2 MG/DL (0.1-1.0); CALCIUM 9.3 MG/DL (8.5-10.1); CREATININE SERUM 1.13 MG/DL (0.60-1.30)
[2019-12-15 12:47] LABS: ALBUMIN 3.8 GM/DL (3.2-4.5); TOTAL PROTEIN 7.7 GM/DL (6.4-8.2)
[2019-12-15 14:41] LABS: BACTERIA,URINE LARGE /HPF; BILIRUBIN,URINE NEGATIVE (NEGATIVE); CLARITY,URINE SLT CLOUDY; COLOR,URINE PALE YELLOW; GLUCOSE, URINE (UA) 3+ (NEGATIVE); KETONES,URINE NEGATIVE (NEGATIVE); LEUKOCYTE ESTERASE ,URINE NEGATIVE (NEGATIVE); NITRITE,URINE NEGATIVE (NEGATIVE); PH,URINE 6.5 (5-9); PROTEIN,URINE NEGATIVE (NEGATIVE); SQUAMOUS EPITHELIAL CELL,UR 0-2 /HPF
[2019-12-15 16:12] VITALS: BP 165/67
== END 2019-12-15 16:12 | disposition home or self-care (01) ==
LOC: EDUNIT# 11:30 → ER FS 11:33
DX: E11.65 Type 2 diabetes mellitus with hyperglycemia (principal); E11.00 Type 2 diabetes mellitus with hyperosmolarity without nonketotic hyperglycemic-hyperosmolar coma (NKHHC); I10 Essential (primary) hypertension; K57.90 Diverticulosis of intestine, part unspecified, without perforation or abscess without bleeding; Z87.891 Personal history of nicotine dependence; Z86.73 Personal history of transient ischemic attack (TIA), and cerebral infarction without residual deficits; Z79.84 Long term (current) use of oral hypoglycemic drugs; Z79.51 Long term (current) use of inhaled steroids; Z88.1 Allergy status to other antibiotic agents; Z88.2 Allergy status to sulfonamides; Z88.8 Allergy status to other drugs, medicaments and biological substances
CPT/HCPCS: 36415; 80053; 81000; 82800; 82962; 85025; 87077; 87088

== ENCOUNTER 2019-12-22 20:57 | Emergency (ER) | payer MEDICARE, OTHER ==
[~2019-12-22] VITALS: Ht 160 cm; Wt 58.9 kg
--- NOTE | 2019-12-22 21:11 | ED Syncope ---
General Chief Complaint: Dizziness/Syncope Stated Complaint: LIGHTHEADED Source of Information: Patient Exam Limitations: No Limitations History of Present Illness Date Seen by Provider: Dec 22, 2019 Time Seen by Provider: 21:00 Initial Comments 69-year-old female brought in for a syncope event. Patient was in the shower sating on a shower stool she thought she would pass out. Patient had a brief episode of syncope. Her daughter was there with it when it happened. Patient has had prior syncopal episodes in the past. She does follow with cardiology at [facility]. She was seen up there September for a stroke evaluation. Patient states she was sent in when she felt like she would pass out but denies any other symptoms. She denies any chest pain, nausea, vomiting, headache, generalized weakness, shortness of breath, fever, chills, urinary symptoms. Patient is at baseline upon arrival to the ER Allergies and Home Medications Allergies Coded Allergies: amoxicillin (Verified Allergy, Unknown, 05/27/18) clavulanic acid (Verified Allergy, Unknown, 05/27/18) moxifloxacin (Verified Allergy, Unknown, 05/27/18) sulfamethoxazole (Verified Allergy, Unknown, 05/27/18) trimethoprim (Verified Allergy, Unknown, 05/27/18) Home Medications Cholecalciferol (Vitamin D3) 1,250 Mcg Capsule, 1,250 MCG PO DAILY, (Reported) Clonazepam 0.5 Mg Tablet, 0.5 MG PO BID PRN for ANXIETY Prescribed by: MALIKA VÁZQUEZ on 08/24/19 1643 Colestipol HCl 1 Gm Tablet, 1 GM PO BID, (Reported) Cyclobenzaprine HCl 10 Mg Tablet, 10 MG PO TID PRN for MUSCLE SPASMS, (Reported) Diphenhydramine HCl 25 Mg Capsule, 25-50 MG PO BID PRN for SLEEP/ITCHING, (Reported) Droxidopa 200 Mg Capsule, 200 MG PO TIDWM take last dose at least 3 hours before bedtime Prescribed by: YIN OLIVER on 08/10/19 1400 Duloxetine HCl 30 Mg Capsule.dr, 60 MG PO DAILY, (Reported) TAKES 2 (30MG) CAPS DAILY Famotidine 20 Mg Tablet, 20 MG PO DAILY Prescribed by: KURT TEMPLE on 08/08/19 1208 Fluconazole 100 Mg Tablet, 100 MG PO DAILY Prescribed by: MALIKA VÁZQUEZ on 08/24/191641 Fludrocortisone Acetate 0.1 Mg Tab, 0.2 MG PO DAILY, (Reported) TAKES 2 (0.1MG) TABLETS Fluticasone Propionate 9.9 Ml Kempner.susp, 1 SPRAY NS DAILY PRN for ALLERGIES, (Reported) Gabapentin 100 Mg Capsule, 100 MG PO TID, (Reported) Lipase/Protease/Amylase 1 Each Capsule.dr, 24,000 UNITS PO QID, (Reported) LAST FILLED 04-17-2019 #200/50 DAY SUPPLY Magnesium Oxide 500 Mg Capsule, 500 MG PO DAILY, (Reported) Metformin HCl 500 Mg Tab.er.24h, 500 MG PO BID, (Reported) Midodrine HCl 5 Mg Tablet, 5 MG PO TID, (Reported) Pantoprazole Sodium 40 Mg Tablet.dr, 40 MG PO BID Prescribed by: MALIKA VÁZQUEZ on 08/24/191641 Potassium Chloride 10 Meq Tab.er.prt, 10 MEQ PO BID, (Reported) Promethazine HCl 25 Mg Tablet, 25 MG PO Q6H PRN for NAUSEA/VOMITING-2ND LINE, (Reported) Tramadol HCl 50 Mg Tablet, 50 MG PO Q8HR PRN for PAIN-SEVERE (8-10) Prescribed by: MALIKA VÁZQUEZ on 08/24/191642 Patient Home Medication List Home Medication List Reviewed: Yes Review of Systems Constitutional: see HPI; No chills, No fever, No malaise EENTM: no symptoms reported Respiratory: No cough, No short of breath Cardiovascular: No chest pain Gastrointestinal: No abdominal pain, No nausea, No vomiting Genitourinary: No dysuria, No frequency Musculoskeletal: no symptoms reported Skin: no symptoms reported Psychiatric/Neurological: See HPI Past Ctgrfhh-Veghkm-Nnasvp Hx Past Med/Social Hx: Reviewed Nursing Past Med/Soc Hx Patient Social History Alcohol Beverage of Choice: Beer Type Used: Cigarettes Former Smoker, Quit: Feb 20, 1995 2nd Hand Smoke Exposure: No Recent Hopitalizations: No Immunizations Up To Date Tetanus Booster (TDap): Unknown Date of Pneumonia Vaccine: Aug 09, 2016 Date of Influenza Vaccine: May 27, 2018 Seasonal Allergies Seasonal Allergies: Yes Past Medical History Appendectomy, Gallbladder, Orthopedic Respiratory: No Currently Using CPAP: No Currently Using BIPAP: No Cardiac: Yes (orthostaic hypotension) Hypertension, Hypotension, Palpitations Neurological: No Neuropathy, Spinal Cord Injury Female Reproductive Disorders: Denies Sexually Transmitted Disease: No HIV/AIDS: No Genitourinary: Yes (self-catheterization) Neurogenic Bladder Gastrointestinal: Yes Diverticulosis, Pancreatitis, Chronic Diarrhea Musculoskeletal: Yes Back Injury Endocrine: Yes Diabetes, Non-Insulin dep HEENT: Yes Cataract Loss of Vision: Denies Hearing Impairment: Denies Cancer: No Psychosocial: No Integumentary: No Blood Disorders: No Adverse Reaction/Blood Tranf: No Family Medical History Completed stroke 19 MOTHER (cva) G8 SISTER (cva) Diabetes mellitus 19 FATHER (neurpathy) Headache disorder 19 MOTHER (migraines) G8 BROTHER (migraines) G8 SISTER (migraines) Neoplasm 19 MOTHER (cancer) Diabetes Physical Exam Vital Signs Vital Signs - First Documented 12/22/19 20:57 Temp 36.1 Pulse 84 Resp 18 B/P (MAP) 155/82 (106) Pulse Ox 95 O2 Delivery Room Air Capillary Refill : Height, Weight, BMI Height: 5'2.00" Weight: 144lbs. 0.9oz. [id number]; 23.00 BMI Method: General Appearance: No Apparent Distress, WD/WN HEENT: PERRL/EOMI Neck: Normal Inspection, Non Tender Cardiovascular: Regular Rate, Rhythm, No Edema Respiratory: Chest Non Tender, Lungs Clear, Normal Breath Sounds, No Accessory Muscle Use Gastrointestinal: Non Tender, Soft Extremities: Normal Capillary Refill, Normal Inspection, Normal Range of Motion Neurologic/Psychiatric: Alert, Oriented x3, No Motor/Sensory Deficits, Normal Mood/Affect, card doffer II-XII Norm as Tested Cranial Nerves: Normal Speech, PERRL Motor/Sensory: No Motor Deficit, No Sensory Deficit Skin: Normal Color, Warm/Dry Progress/Results/Core Measures Results/Orders Lab Results Laboratory Tests Test 12/22/19 21:07 12/22/19 21:08 12/22/19 22:16 Range/Units Glucometer 349 H 70-110 MG/DL White Blood Count 9.0 4.3-11.0 10^3/uL Red Blood Count 3.84 L 4.35-5.85 10^6/uL Hemoglobin 11.6 11.5-16.0 G/DL Hematocrit 35 35-52 % Mean Corpuscular Volume 90 80-99 FL Mean Corpuscular Hemoglobin 30 25-34 PG Mean Corpuscular Hemoglobin Concent 33 32-36 G/DL Red Cell Distribution Width 13.1 10.0-14.5 % Platelet Count 406 H 130-400 10^3/uL Mean Platelet Volume 9.3 7.4-10.4 FL Neutrophils (%) (Auto) 60 42-75 % Lymphocytes (%) (Auto) 31 12-44 % Monocytes (%) (Auto) 7 0-12 % Eosinophils (%) (Auto) 1 0-10 % Basophils (%) (Auto) 1 0-10 % Neutrophils # (Auto) 5.5 1.8-7.8 X 10^3 Lymphocytes # (Auto) 2.8 1.0-4.0 X 10^3 Monocytes # (Auto) 0.6 0.0-1.0 X 10^3 Eosinophils # (Auto) 0.1 0.0-0.3 10^3/uL Basophils # (Auto) 0.1 0.0-0.1 10^3/uL Sodium Level 131 L 135-145 MMOL/L Potassium Level 4.2 3.6-5.0 MMOL/L Chloride Level 94 L 98-107 MMOL/L Carbon Dioxide Level 22 21-32 MMOL/L Anion Gap 15 H 5-14 MMOL/L Blood Urea Nitrogen 25 H 7-18 MG/DL Creatinine 1.15 0.60-1.30 MG/DL Estimat Glomerular Filtration Rate 47 BUN/Creatinine Ratio 22 Glucose Level 370 H 70-105 MG/DL Calcium Level 9.4 8.5-10.1 MG/DL Corrected Calcium 9.6 8.5-10.1 MG/DL Total Bilirubin 0.2 0.1-1.0 MG/DL Aspartate Amino Transf (AST/SGOT) 30 5-34 U/L Alanine Aminotransferase (ALT/SGPT) 20 0-55 U/L Alkaline Phosphatase 83 40-136 U/L Troponin I < 0.30 <0.30 NG/ML Total Protein 7.7 6.4-8.2 GM/DL Albumin 3.7 3.2-4.5 GM/DL Urine Color YELLOW Urine Clarity SL CLOUDY Urine pH 6.0 5-9 Urine Specific [place] 1.010 L 1.016-1.022 Urine Protein NEGATIVE NEGATIVE Urine Glucose (UA) 3+ H NEGATIVE Urine Ketones NEGATIVE NEGATIVE Urine Nitrite NEGATIVE NEGATIVE Urine Bilirubin NEGATIVE NEGATIVE Urine Urobilinogen 0.2 < = 1.0 MG/DL Urine Leukocyte Esterase TRACE H NEGATIVE Urine RBC (Auto) TRACE H NEGATIVE Urine RBC 0-2 /HPF Urine WBC 25-50 H /HPF Urine Squamous Epithelial Cells 0-2 /HPF Urine Crystals NONE /LPF Urine Bacteria NEGATIVE /HPF Urine Casts NONE /LPF Urine Mucus NEGATIVE /LPF Urine Yeast LARGE H /HPF Urine Culture Indicated YES My Orders Orders - BOLAÑOS,RAUL L DO Cbc With Automated Diff (12/22/19 21:00) Comprehensive Metabolic Panel (12/22/19 21:00) Lactic Acid Analyzer (12/22/19 21:00) Ua Culture If Indicated (12/22/19 21:00) Accucheck Stat ONCE (12/22/19 21:00) Troponin I Fs (12/22/19 21:00) Vital Signs (12/22/19 21:00) Ekg Tracing (12/22/19 21:00) Monitor-Rhythm Ecg Trace Only (12/22/19 21:00) Orthostatic Vital Signs (Adult (12/22/19 21:00) Ct Head Wo-R/O Stroke (12/22/19 21:00) Chest 1 View Ap/Pa Only (12/22/19 21:00) Ed Iv/Invasive Line Start (12/22/19 21:44) Ns Iv 500 Ml (Sodium Chloride 0.9%) (12/22/19 21:44) Urine Culture (12/22/19 22:16) Fluconazole Tablet (Ed Only) (Diflucan T (12/22/19 23:00) Medications Given in ED Current Medications Medications Dose Ordered Sig/Chelle Route Start Time Stop Time Status Last Admin Dose Admin Sodium Chloride 500 ml @ 0 mls/hr Q0M ONCE IV 12/22/19 21:44 12/22/19 21:45 DC 12/22/19 21:50 999 MLS/HR Vital Signs/I&O 12/22/19 20:57 Temp 36.1 Pulse 84 Resp 18 B/P (MAP) 155/82 (106) Pulse Ox 95 O2 Delivery Room Air Progress Progress Note : Time: 22:57 Progress Note Patient with known urinary tract infection that is currently on antibiotic that she just started. Patient also with known recurrent syncope. Patient is ready be discharged home. I recommend she follow with her primary care provider in a couple days ensure that her urinary tract infection is improving. She also has a cardiology follow-up already scheduled for a carotid evaluation. Patient will be discharged home. She is stable upon discharge. Initial ECG Impression Date: Dec 22, 2019 Initial ECG Impression Time: 21:00 Initial ECG Rhythm: Normal Sinus Initial ECG Intervals LBBB Initial ECG Comparisson: Unchanged (08/09/19) Comment Sinus rhythm, left bundle branch block, no acute findings Departure Impression Primary Impression: Acute UTI Additional Impression: Recurrent syncope Disposition: HOME, SELF-CARE Condition: Stable Departure-Patient Inst. Referrals: SELF,FRANKY PRATER (PCP/Family) Primary Care Physician Patient Instructions: Syncope (Fainting), Urinary Tract Infection, Adult (DC) Add. Discharge Instructions: Follow-up with your primary care provider in 2-3 days to ensure your urinary tract infection is improving Keep already scheduled appointment with your domestic travel consultant All discharge instructions reviewed with patient and/or family. Voiced understanding. RAUL BOLAÑOS DO Dec 22, 2019 21:11
[2019-12-22 21:18] LABS: HEMATOCRIT 35 % (35-52); HEMOGLOBIN 11.6 G/DL (11.5-16.0); MEAN CORPUSCULAR HEMOGLOBIN 30 PG (25-34); MEAN CORPUSCULAR HGB CONC 33 G/DL (32-36); MEAN CORPUSCULAR VOLUME 90 FL (80-99); MEAN PLATELET VOLUME 9.3 FL (7.4-10.4); PLATELET COUNT 406 10^3/uL (130-400); RED CELL DISTRIBUTION WIDTH 13.1 % (10.0-14.5)
[2019-12-22 21:19] LABS: BASOPHILS # (AUTO) 0.1 10^3/uL (0.0-0.1); BASOPHILS % (AUTO) 1 % (0-10); EOSINOPHILS # (AUTO) 0.1 10^3/uL (0.0-0.3); EOSINOPHILS % (AUTO) 1 % (0-10); LYMPHOCYTES # (AUTO) 2.8 X 10^3 (1.0-4.0); LYMPHOCYTES % (AUTO) 31 % (12-44); MONOCYTES # (AUTO) 0.6 X 10^3 (0.0-1.0); MONOCYTES % (AUTO) 7 % (0-12); NEUTROPHILS # (AUTO) 5.5 X 10^3 (1.8-7.8); NEUTROPHILS % (AUTO) 60 % (42-75)
[2019-12-22 21:38] LABS: ALANINE AMINOTRANSFERASE 20 U/L (0-55); ALKALINE PHOSPHATASE 83 U/L (40-136); BILIRUBIN,TOTAL 0.2 MG/DL (0.1-1.0); BUN/CREATININE RATIO 22; CALCIUM 9.4 MG/DL (8.5-10.1); CARBON DIOXIDE 22 MMOL/L (21-32); CHLORIDE 94 MMOL/L (98-107); CREATININE SERUM 1.15 MG/DL (0.60-1.30); GFR ESTIMATED 47; GLUCOSE 370 MG/DL (70-105); POTASSIUM 4.2 MMOL/L (3.6-5.0); SODIUM 131 MMOL/L (135-145)
[2019-12-22 21:39] LABS: ALBUMIN 3.7 GM/DL (3.2-4.5); TOTAL PROTEIN 7.7 GM/DL (6.4-8.2)
[2019-12-22] MEDS ORDERED: NS IV 500 ML 500 ML IV ONE (21:44)
--- NOTE | 2019-12-22 21:57 | Diagnostic Imaging Report ---
INDICATION: Syncope Frontal chest obtained at 09:28 p.m. and compared to 08/02/2019 Heart and mediastinal silhouette are normal in appearance. There is unchanged mild elevation of the right hemidiaphragm. There is right basilar scarring or atelectasis. There is no consolidation or pneumothorax or pleural fluid. IMPRESSION: Mild right basilar atelectasis versus scarring. Mild elevation of the right hemidiaphragm. No other abnormal finding. Dictated by: Dictated on workstation # [id number]
--- NOTE | 2019-12-22 22:13 | Diagnostic Imaging Report ---
PROCEDURE: CT head wo r/o stroke. TECHNIQUE: Multiple contiguous axial images were obtained through the brain without the use of intravenous contrast. Auto Exposure Controls were utilized during the CT exam to meet ALARA standards for radiation dose reduction. INDICATION: Syncope. FINDINGS: There is periventricular white matter hypodensity, symmetric and likely owing to chronic small vessel disease. No sulcal effacement or findings of cortical edema. There is no hemorrhage. There was no mass or mass effect. The basilar cisterns are patent. There is no sulcal effacement. The orbits, sinuses and calvarium appeared nonacute. There is a very slight degree of senescent cortical atrophy. No calvarial fracture deformity. IMPRESSION: No hemorrhage, edema or acute finding. Mild chronic senescent changes, otherwise negative. Dictated by: Dictated on workstation # [id number]
[2019-12-22 22:36] LABS: BILIRUBIN,URINE NEGATIVE (NEGATIVE); CLARITY,URINE SL CLOUDY; COLOR,URINE YELLOW; GLUCOSE, URINE (UA) 3+ (NEGATIVE); KETONES,URINE NEGATIVE (NEGATIVE); LEUKOCYTE ESTERASE ,URINE TRACE (NEGATIVE); NITRITE,URINE NEGATIVE (NEGATIVE); PROTEIN,URINE NEGATIVE (NEGATIVE); RBC,URINE 0-2 /HPF; WBC,URINE 25-50 /HPF
[2019-12-22 22:37] LABS: BACTERIA,URINE NEGATIVE /HPF; SQUAMOUS EPITHELIAL CELL,UR 0-2 /HPF
[2019-12-22 22:38] LABS: YEAST,URINE LARGE /HPF
[2019-12-22 22:41] VITALS: BP 155/82
[2019-12-22 22:42] VITALS: BP 135/60
[2019-12-22] MEDS ORDERED: FLUCONAZOLE 150 MG TABLET (ED ONLY) PO ONE (23:00)
[2019-12-22 23:05] VITALS: BP 101/87
== END 2019-12-22 23:05 | disposition home or self-care (01) ==
LOC: EDUNIT# 20:57 → ER FS 20:58
DX: R55 Syncope and collapse (principal); N39.0 Urinary tract infection, site not specified; I10 Essential (primary) hypertension; E11.9 Type 2 diabetes mellitus without complications; K57.90 Diverticulosis of intestine, part unspecified, without perforation or abscess without bleeding; K52.9 Noninfective gastroenteritis and colitis, unspecified; Z87.891 Personal history of nicotine dependence; Z88.1 Allergy status to other antibiotic agents; Z88.2 Allergy status to sulfonamides; Z88.8 Allergy status to other drugs, medicaments and biological substances; Z79.2 Long term (current) use of antibiotics; Z79.84 Long term (current) use of oral hypoglycemic drugs; Z96.0 Presence of urogenital implants
CPT/HCPCS: 36415; 51702; 70450; 71045; 80053; 81000; 82962; 84484; 85025; 87088; 93005; 93041